=== PATIENT | female | born 1955 | race Caucasian/White ===

== ENCOUNTER → 2016-07-25 | Outpatient (CLI) | payer MEDICARE | END | disposition home or self-care (01) | LOC: LABWHC1 10:40 | PROVIDERS: ATTEND Internal Medicine Endocrinology, Diabetes & Metabolism | DX: E10.65 Type 1 diabetes mellitus with hyperglycemia (principal) | CPT/HCPCS: 36415; 82947; 84681 ==

== ENCOUNTER → 2016-10-04 | Outpatient (CLI) | payer MEDICARE ==
[2016-10-04 10:25] LABS: ALT 34 U/L (9-52); AST 33 U/L (14-36); Alkaline Phosphatase 88 U/L (38-126); Anion Gap 7 mmol/L; Blood Urea Nitrogen 6 mg/dL (7-17); Calcium 8.9 mg/dL (8.4-10.2); Carbon Dioxide 29 mmol/L (22-30); Chloride 99 mmol/L (98-107); Cholesterol 111 mg/dL (<200); Glucose 236 mg/dL (74-99); HDL Cholesterol 41 mg/dL (40-60); Non-African American GFR(MDRD) >60 (>60 ml/min/1.73 sqM); Sodium 135 mmol/L (137-145); Total Protein 6.9 g/dL (6.3-8.2); Triglycerides 71 mg/dL (<150)
== END | disposition home or self-care (01) ==
LOC: LABWHC1 09:44
PROVIDERS: ATTEND Internal Medicine Endocrinology, Diabetes & Metabolism
DX: E10.65 Type 1 diabetes mellitus with hyperglycemia (principal)
CPT/HCPCS: 36415; 80053; 80061; 82043

== ENCOUNTER → 2016-11-01 | Outpatient (CLI) | payer MEDICARE ==
[2016-11-01 10:05] LABS: Basophils % (A) 0 %; CH 32.9; Eosinophils % (A) 1 %; HCT 37.4 % (34.0-46.0); HDW 2.51; HGB 12.3 gm/dL (11.4-16.0); Luc # (Auto) 0.17; Luc % (Auto) 4; Lymphocytes # (A) 0.6 k/uL (1.0-4.8); Lymphocytes % (A) 13 %; MCH 32.9 pg (25.0-35.0); MCHC 32.8 g/dL (31.0-37.0); MCV 100.3 fL (80.0-100.0); Mean Platelet Volume 7.1; Monocytes # (A) 0.4 k/uL (0-1.0); Monocytes % (A) 10 %; Neutrophils # (A) 3.2 k/uL (1.3-7.7); Neutrophils % (A) 73 %; RBC 3.73 m/uL (3.80-5.40); RDW 12.9 % (11.5-15.5); WBC 4.4 k/uL (3.8-10.6); WBC (Perox) 4.94
[2016-11-01 10:21] LABS: ALT 32 U/L (9-52); AST 31 U/L (14-36); Alkaline Phosphatase 80 U/L (38-126); Anion Gap 9 mmol/L; Bilirubin, Delta 0.2 mg/dL (0.0-0.2); Blood Urea Nitrogen 9 mg/dL (7-17); Carbon Dioxide 26 mmol/L (22-30); Chloride 101 mmol/L (98-107); Cholesterol 114 mg/dL (<200); Glucose 125 mg/dL (74-99); HDL Cholesterol 44 mg/dL (40-60); Non-African American GFR(MDRD) >60 (>60 ml/min/1.73 sqM); Potassium 4.1 mmol/L (3.5-5.1); Sodium 136 mmol/L (137-145); Total Bilirubin 0.9 mg/dL (0.2-1.3); Total Protein 7.3 g/dL (6.3-8.2); Triglycerides 50 mg/dL (<150)
== END | disposition home or self-care (01) ==
LOC: LABWHC1 09:31
PROVIDERS: ATTEND Internal Medicine Cardiovascular Disease
DX: Z00.00 Encounter for general adult medical examination without abnormal findings (principal); I25.10 Atherosclerotic heart disease of native coronary artery without angina pectoris; I50.9 Heart failure, unspecified
CPT/HCPCS: 36415; 80053; 80061; 82248; 84439; 84443; 85025

== ENCOUNTER → 2017-01-15 | Outpatient (CLI) | payer MEDICARE ==
[2017-01-15 10:49] LABS: ALT 38 U/L (9-52); AST 36 U/L (14-36); Alkaline Phosphatase 92 U/L (38-126); Anion Gap 9 mmol/L; Blood Urea Nitrogen 9 mg/dL (7-17); Calcium 9.1 mg/dL (8.4-10.2); Carbon Dioxide 25 mmol/L (22-30); Chloride 99 mmol/L (98-107); Cholesterol 124 mg/dL (<200); Glucose 172 mg/dL (74-99); HDL Cholesterol 53 mg/dL (40-60); Non-African American GFR(MDRD) >60 (>60 ml/min/1.73 sqM); Potassium 4.6 mmol/L (3.5-5.1); Sodium 133 mmol/L (137-145); Total Bilirubin 0.9 mg/dL (0.2-1.3); Total Protein 7.2 g/dL (6.3-8.2); Triglycerides 76 mg/dL (<150)
[2017-01-15 16:13] LABS: Urine Creatinine 80.7 mg/dL
== END | disposition home or self-care (01) ==
LOC: LABWHC1 09:55
PROVIDERS: ATTEND Internal Medicine Endocrinology, Diabetes & Metabolism
DX: E03.8 Other specified hypothyroidism (principal); E10.65 Type 1 diabetes mellitus with hyperglycemia
CPT/HCPCS: 36415; 80053; 80061; 82043; 82570; 84443

== ENCOUNTER → 2017-09-24 | Outpatient (CLI) | payer MEDICARE ==
[2017-09-24 11:10] LABS: ALT 28 U/L (9-52); AST 30 U/L (14-36); Albumin 3.7 g/dL (3.5-5.0); Alkaline Phosphatase 73 U/L (38-126); Anion Gap 10 mmol/L; Blood Urea Nitrogen 11 mg/dL (7-17); Carbon Dioxide 28 mmol/L (22-30); Chloride 98 mmol/L (98-107); Cholesterol 138 mg/dL (<200); Glucose 94 mg/dL (74-99); HDL Cholesterol 50 mg/dL (40-60); LDL Cholesterol,Calculated 78 mg/dL (0-99); Potassium 4.1 mmol/L (3.5-5.1); Sodium 136 mmol/L (137-145); Total Bilirubin 0.6 mg/dL (0.2-1.3); Total Protein 6.5 g/dL (6.3-8.2); Triglycerides 51 mg/dL (<150)
[2017-09-24 16:45] LABS: Hemoglobin A1C 7.9 % (4.0-6.0)
== END | disposition home or self-care (01) ==
LOC: LABWHC1 09:58
PROVIDERS: ATTEND Internal Medicine Endocrinology, Diabetes & Metabolism
DX: E03.8 Other specified hypothyroidism (principal); E10.65 Type 1 diabetes mellitus with hyperglycemia
CPT/HCPCS: 36415; 80053; 80061; 82043; 82570; 83036; 84443

== ENCOUNTER → 2017-10-13 | Outpatient (CLI) | payer MEDICARE ==
--- NOTE | 2017-10-14 00:04 | CT ---
EXAMINATION TYPE: CT chest wo con DATE OF EXAM: 10/13/2017 COMPARISON: NONE HISTORY: Interstitial lung disease per order. Difficulty breathing per patient. CT DLP: 675 mGycm. Automated Exposure Control for Dose Reduction was Utilized. TECHNIQUE: CT scan of the thorax is performed without IV contrast. High resolution protocol with 1 m m sequences obtained at 10 mm intervals undergoing prone and supine technique FINDINGS: LUNGS: There is mild to moderate underlying emphysematous change. There is more prominent subpleural fibrosis and reticulation with distortion noted most prominent in bilateral lung bases, IPF should be considered. Some areas of faint groundglass opacity are present bilaterally. Some honeycombing in th e bases is noted. No pleural effusion or pneumothorax is seen bilaterally. Tracheobronchial tree is p atent. No significant bronchiectasis is present. MEDIASTINUM: Lack of IV contrast is noted to limit evaluation for mediastinal and especially hilar ad enopathy. There are no definitive greater than 1 cm hilar or mediastinal lymph nodes. Post-CABG logan es with mediastinal clips and sternal wires is seen. There is cardiomegaly with dual lead pacemaker/A ICD. OTHER: Small hiatal hernia is noted. There is slight scoliotic curvature with mild multilevel spurrin g in the spine. IMPRESSION: Mild to moderate underlying emphysematous change with bilateral peripheral interstitial f ibrosis noted most prominent in the lower lobes, consider IPF. Areas of acute infiltrate or infection cannot be excluded in the upper lungs.
== END | disposition home or self-care (01) ==
LOC: RADCTMAIN 09:40
PROVIDERS: ATTEND Internal Medicine
DX: J43.9 Emphysema, unspecified (principal); J84.10 Pulmonary fibrosis, unspecified
CPT/HCPCS: 71250

== ENCOUNTER → 2017-12-28 | Outpatient (CLI) | payer MEDICARE ==
[2017-12-28 09:59] LABS: ALT 32 U/L (9-52); AST 29 U/L (14-36); Albumin 3.9 g/dL (3.5-5.0); Alkaline Phosphatase 67 U/L (38-126); Anion Gap 10 mmol/L; Blood Urea Nitrogen 12 mg/dL (7-17); Calcium 9.2 mg/dL (8.4-10.2); Carbon Dioxide 28 mmol/L (22-30); Chloride 95 mmol/L (98-107); Cholesterol 176 mg/dL (<200); Glucose 148 mg/dL (74-99); Potassium 4.6 mmol/L (3.5-5.1); Sodium 133 mmol/L (137-145); Total Bilirubin 0.6 mg/dL (0.2-1.3); Total Protein 6.9 g/dL (6.3-8.2); Triglycerides 74 mg/dL (<150)
[2017-12-28 10:00] LABS: HDL Cholesterol 51 mg/dL (40-60); LDL Cholesterol,Calculated 110 mg/dL (0-99)
== END | disposition home or self-care (01) ==
LOC: LABWHC1 08:56
PROVIDERS: ATTEND Internal Medicine Endocrinology, Diabetes & Metabolism
DX: E10.65 Type 1 diabetes mellitus with hyperglycemia (principal)
CPT/HCPCS: 36415; 80053; 80061; 82043; 82570; 83036; 84443

== ENCOUNTER → 2018-02-19 | Outpatient (CLI) | payer MEDICARE | END | disposition home or self-care (01) | LOC: LABWHC1 11:35 | PROVIDERS: ATTEND Internal Medicine Cardiovascular Disease | DX: I50.42 Chronic combined systolic (congestive) and diastolic (congestive) heart failure (principal) | CPT/HCPCS: 36415; 84132 ==

== ENCOUNTER → 2018-05-14 | Outpatient (CLI) | payer MEDICARE ==
[2018-05-14 19:17] LABS: ALT 21 U/L (8-44); AST 32 U/L (13-35); Albumin/Globulin Ratio 1.64 (1.20-2.10); Alkaline Phosphatase 78 U/L (41-126); Calcium 8.9 mg/dL (8.7-10.3); Carbon Dioxide 24.3 mmol/L (21.6-31.8); Chloride 99 mmol/L (96-109); Cholesterol 121 mg/dL (0-200); Globulin 2.5 g/dL (2.1-3.7); Glucose 107 mg/dL (70-110); Potassium 4.4 mmol/L (3.5-5.5); Sodium 132 mmol/L (135-145); Total Bilirubin 0.7 mg/dL (0.2-1.2); Total Protein 6.6 g/dL (6.2-8.2); Triglycerides <50.0 mg/dL (0.0-149.0); VLDL Calculation 9.98 mg/dL (5.00-40.00)
[2018-05-14 21:43] LABS: Hemoglobin A1C 8.4 % (4.0-6.0)
== END | disposition home or self-care (01) ==
LOC: LABWHC1 10:39
PROVIDERS: ATTEND Internal Medicine Endocrinology, Diabetes & Metabolism
DX: E10.65 Type 1 diabetes mellitus with hyperglycemia (principal)
CPT/HCPCS: 36415; 80053; 80061; 83036

== ENCOUNTER → 2018-09-10 | Outpatient (CLI) | payer MEDICARE ==
[2018-09-10 17:14] LABS: Albumin 3.9 g/dL (3.80-4.90); Albumin/Globulin Ratio 1.63 (1.60-3.17); Calcium 8.7 mg/dL (8.7-10.3); Globulin 2.4 g/dL (1.6-3.3); Potassium 4.2 mmol/L (3.5-5.5); Total Bilirubin 0.7 mg/dL (0.2-1.2); Total Protein 6.3 g/dL (6.2-8.2)
[2018-09-10 17:15] LABS: LDL Cholesterol,Calculated 62.6 mg/dL (0.0-131.0); VLDL Calculation 10.4 mg/dL (5.00-40.00)
[2018-09-10 19:54] LABS: Hemoglobin A1C 7.7 % (4.0-6.0)
== END | disposition home or self-care (01) ==
LOC: LABWHC1 09:15
PROVIDERS: ATTEND Internal Medicine Endocrinology, Diabetes & Metabolism
DX: E10.65 Type 1 diabetes mellitus with hyperglycemia (principal)
CPT/HCPCS: 36415; 80053; 80061; 82043; 82570; 83036; 84443

== ENCOUNTER → 2019-01-17 | Outpatient (CLI) | payer MEDICARE ==
--- NOTE | 2019-01-17 14:56 | XR ---
EXAMINATION TYPE: XR KUB DATE OF EXAM: 01/17/2019 2:49 PM CLINICAL HISTORY: Right flank pain for one month TECHNIQUE: Single supine KUB image of the abdomen is obtained. COMPARISON: None. FINDINGS: Scattered gas is seen in nondilated small bowel loops. Gas and fecal material is seen in no ndilated colon. There is no gross evidence of pneumoperitoneum although this finding is limited on [place] imaging only. The lung bases are clear and the osseous structures are intact. There is partial v isualization of an enlarged cardiac silhouette with multilead cardiac defibrillator. Degenerative ladarius nges are seen at the lumbosacral junction. Surgical clips are present within the left superficial ing uinal region. IMPRESSION: Moderate degree right hemicolonic fecal stasis in an overall nonobstructive bowel gas pattern.
== END | disposition home or self-care (01) ==
LOC: RADXRMAIN 14:33
PROVIDERS: ATTEND Internal Medicine
DX: K56.41 Fecal impaction (principal)
CPT/HCPCS: 74018

== ENCOUNTER → 2019-02-20 | Outpatient (CLI) | payer MEDICARE ==
[2019-02-20 16:54] LABS: African American GFR (CKD) 91.6 (60.0-200.0); Anion Gap 9.2 mmol/L (4.00-12.00); Carbon Dioxide 24.8 mmol/L (21.6-31.8); Potassium 4.6 mmol/L (3.5-5.5)
== END | disposition home or self-care (01) ==
LOC: LABWHC1 10:22
PROVIDERS: ATTEND Internal Medicine Interventional Cardiology
DX: I42.9 Cardiomyopathy, unspecified (principal); I11.0 Hypertensive heart disease with heart failure; I50.42 Chronic combined systolic (congestive) and diastolic (congestive) heart failure
CPT/HCPCS: 36415; 80051; 82565; 84520

== ENCOUNTER → 2019-05-09 | Outpatient (CLI) | payer MEDICARE ==
--- NOTE | 2019-05-13 10:18 | MM ---
Reason for exam: screening (asymptomatic). Last mammogram was performed 5 years and 1 month ago. History: Patient is postmenopausal. Benign core biopsy of the left breast, 2000. Physical Findings: A clinical breast exam by your physician is recommended on an annual basis and results should be correlated with mammographic findings. MG 3D Screening Mammo W/Cad Bilateral CC and MLO view(s) were taken. Prior study comparison: April 20, 2014, bilateral MG screening mammo w CAD. The breast tissue is heterogeneously dense. This may lower the sensitivity of mammography. Benign secretory calcifications on the right. Generalized asymmetrically increased density on the right. This may be secondary to apparent weight loss as compared to 2013. Given asymmetry, ultrasound recommended. ASSESSMENT: Incomplete: need additional imaging evaluation, BI-RAD 0 RECOMMENDATION: Ultrasound of the left breast. [facility] will attempt to contact patient to return for ultrasound.
== END | disposition home or self-care (01) ==
LOC: RADMAMWWP 15:23
PROVIDERS: ATTEND Internal Medicine
DX: Z12.31 Encounter for screening mammogram for malignant neoplasm of breast (principal)
CPT/HCPCS: 77063; 77067

== ENCOUNTER → 2019-05-19 | Outpatient (CLI) | payer MEDICARE ==
--- NOTE | 2019-05-19 11:24 | USB ---
Reason for exam: additional evaluation requested from abnormal screening. History: Patient is postmenopausal. Benign core biopsy of the left breast, 2000. Physical Findings: Nurse Summary: 1cm lump left breast 1 o'clock with arm raised (nurse TM). US Breast Workup RT Left complete breast ultrasound includes all four quadrants, the retroareolar region and axilla. Finding demonstrates a 0.2 x 0.3 x 0.2cm hypoechoic lesion at 1 o'clock in dermis. These results were verbally communicated with the patient and result sheet given to the patient on 05/19/19. ASSESSMENT: Benign, BI-RAD 2 RECOMMENDATION: Return to routine screening mammogram schedule for both breasts. Manage patient on a clinical basis.
== END | disposition home or self-care (01) ==
LOC: RADUSWWP 09:36
PROVIDERS: ATTEND Internal Medicine
DX: R92.8 Other abnormal and inconclusive findings on diagnostic imaging of breast (principal)

== ENCOUNTER → 2019-07-23 | Outpatient (CLI) | payer MEDICARE ==
[2019-07-23 18:35] LABS: African American GFR (CKD) 91.6 (60.0-200.0); Albumin/Globulin Ratio 1.6 (1.60-3.17); Anion Gap 7.4 mmol/L (4.00-12.00); BUN/Creat Ratio 16.25 Ratio (12.00-20.00); Carbon Dioxide 26.6 mmol/L (21.6-31.8); Chol/HDL Ratio 2.68; Globulin 2.5 g/dL (1.6-3.3); LDL Cholesterol,Calculated 62.6 mg/dL (0.0-131.0); Potassium 4.5 mmol/L (3.5-5.5); Total Bilirubin 0.7 mg/dL (0.2-1.2); Total Protein 6.5 g/dL (6.2-8.2); VLDL Calculation 11.4 mg/dL (5.00-40.00)
[2019-07-23 21:31] LABS: Urine Creatinine 41.3 mg/dL
[2019-07-23 21:38] LABS: Hemoglobin A1C 7.9 % (4.0-6.0)
== END | disposition home or self-care (01) ==
LOC: LABWHC1 09:10
PROVIDERS: ATTEND Internal Medicine Endocrinology, Diabetes & Metabolism
DX: E10.65 Type 1 diabetes mellitus with hyperglycemia (principal)
CPT/HCPCS: 36415; 80053; 80061; 82043; 82570; 83036; 84443

== ENCOUNTER → 2019-12-17 | Outpatient (CLI) | payer MEDICARE ==
[2019-12-17 16:31] LABS: African American GFR (CKD) 90.9 (60.0-200.0); Anion Gap 5.4 mmol/L (4.00-12.00); Carbon Dioxide 28.6 mmol/L (21.6-31.8); Non-African American GFR(CKD) 78.5 (60.0-200.0); Potassium 4.3 mmol/L (3.5-5.5)
== END | disposition home or self-care (01) ==
LOC: LABWHC1 09:17
PROVIDERS: ATTEND Internal Medicine Interventional Cardiology
DX: I42.9 Cardiomyopathy, unspecified (principal); I50.42 Chronic combined systolic (congestive) and diastolic (congestive) heart failure
CPT/HCPCS: 36415; 80051; 82565; 84520

== ENCOUNTER → 2020-03-22 | Outpatient (CLI) | payer MEDICARE ==
[2020-03-22 16:52] LABS: African American GFR (CKD) 90.9 (60.0-200.0); Albumin 3.9 g/dL (3.80-4.90); Albumin/Globulin Ratio 1.44 (1.60-3.17); Anion Gap 6.3 mmol/L (4.00-12.00); BUN/Creat Ratio 11.25 Ratio (12.00-20.00); Carbon Dioxide 27.7 mmol/L (21.6-31.8); Chol/HDL Ratio 2.89; Globulin 2.7 g/dL (1.6-3.3); Non-African American GFR(CKD) 78.5 (60.0-200.0); Potassium 4.5 mmol/L (3.5-5.5); Total Bilirubin 0.9 mg/dL (0.3-1.2); Total Protein 6.6 g/dL (6.2-8.2)
[2020-03-22 17:16] LABS: Urine Creatinine 14.7 mg/dL
[2020-03-22 17:18] LABS: Hemoglobin A1C 8.6 % (4.0-6.0)
== END | disposition home or self-care (01) ==
LOC: LABWHC1 10:35
PROVIDERS: ATTEND Internal Medicine Endocrinology, Diabetes & Metabolism
DX: E10.65 Type 1 diabetes mellitus with hyperglycemia (principal)
CPT/HCPCS: 36415; 80053; 80061; 82043; 82570; 83036; 84443

== ENCOUNTER → 2020-10-20 | Outpatient (CLI) | payer MEDICARE ==
[2020-10-20 18:31] LABS: Hemoglobin A1C 8.1 % (4.0-6.0)
[2020-10-20 21:48] LABS: African American GFR (CKD) 78.3 (60.0-200.0); Albumin/Globulin Ratio 1.6 (1.60-3.17); Anion Gap 8.4 mmol/L (4.00-12.00); BUN/Creat Ratio 15.56 Ratio (12.00-20.00); Calcium 8.9 mg/dL (8.7-10.3); Carbon Dioxide 25.6 mmol/L (21.6-31.8); Chol/HDL Ratio 2.61; Globulin 2.5 g/dL (1.6-3.3); LDL Cholesterol,Calculated 60.4 mg/dL (0.0-131.0); Non-African American GFR(CKD) 67.6 (60.0-200.0); Potassium 4.4 mmol/L (3.5-5.5); Total Bilirubin 0.7 mg/dL (0.3-1.2); Total Protein 6.5 g/dL (6.2-8.2); VLDL Calculation 13.6 mg/dL (5.00-40.00)
[2020-10-21 03:34] LABS: Urine Creatinine 19.6 mg/dL
== END | disposition home or self-care (01) ==
LOC: LABWHC1 09:15
PROVIDERS: ATTEND Internal Medicine Endocrinology, Diabetes & Metabolism
DX: E10.65 Type 1 diabetes mellitus with hyperglycemia (principal)
CPT/HCPCS: 36415; 80053; 80061; 82043; 82570; 83036; 84443

== ENCOUNTER 2020-11-12 13:07 | Inpatient (IN) | payer MEDICARE ==
--- NOTE | 2020-11-12 14:11 | ED ---
General Adult HPI - General Chief complaint: Back Pain/Injury Stated complaint: L shoulder & upper back pain Time Seen by Provider: 11/12/20 13:55 Source: patient, RN notes reviewed, old records reviewed Mode of arrival: ambulatory Limitations: no limitations - History of Present Illness Initial comments: 65-year-old female history of CAD status post CABG presenting for evaluation of left shoulder pain and left arm pain. Symptoms have been present for the past 4 days. She has no central chest pain. No dyspnea. She does have a mild cough which is baseline, no worsening. No fever. She's been vaccinated against coronavirus. She states she has just felt unwell for the past several days. Denies lower extremity pain or swelling. She is on 81 mg aspirin, no other anticoagulation. - Related Data Home Medications Medication Instructions Recorded Confirmed Aspirin 325 mg PO DAILY 02/02/14 02/02/14 INSULIN ASPART (NovoLOG) [NovoLOG] 0 unit SQ DAILY PRN 02/02/14 02/02/14 LORazepam [Ativan] 1 mg PO HS 02/02/14 02/02/14 Levothyroxine Sodium [Synthroid] 88 mcg PO DAILY 02/02/14 02/02/14 Olmesartan/Hydrochlorothiazide 1 each PO DAILY 02/02/14 02/02/14 [Benicar Hct 20-12.5 mg Tablet] Omeprazole [PriLOSEC] 20 mg PO HS 02/02/14 02/02/14 Rosuvastatin Calcium [Crestor] 5 mg PO MOWEFR 02/02/14 02/02/14 carvediloL [Coreg] 6.25 mg PO BID 02/02/14 02/02/14 Allergies Allergy/AdvReac Type Severity Reaction Status Date / Time clarithromycin [From Biaxin] AdvReac Nausea & Verified 11/12/20 13:25 Vomiting codeine AdvReac Vomiting Verified 11/12/20 13:25 Review of Systems ROS Statement: Those systems with pertinent positive or pertinent negative responses have been documented in the HPI. ROS Other: All systems not noted in ROS Statement are negative. Past Medical History Past Medical History: Diabetes Mellitus, GERD/Reflux, Hyperlipidemia, Hypertension, Myocardial Infarction ([place]), Thyroid Disorder Last Myocardial Infarction Date:: 2001 History of Any Multi-Drug Resistant Organisms: None Reported Past Surgical History: Section, Coronary Bypass/CABG, Hysterectomy, Tubal Ligation Past Anesthesia/Blood Transfusion Reactions: Postoperative Nausea & Vomiting (PONV) Past Psychological History: Anxiety Smoking Status: Never smoker Past Alcohol Use History: Rare Past Drug Use History: None Reported General Exam Limitations: no limitations General appearance: alert, in no apparent distress Head exam: Present: atraumatic Eye exam: Present: normal appearance, PERRL ENT exam: Present: normal exam Neck exam: Present: normal inspection. Absent: tenderness, meningismus Respiratory exam: Present: normal lung sounds bilaterally. Absent: respiratory distress, wheezes Cardiovascular Exam: Present: regular rate, normal rhythm GI/Abdominal exam: Present: soft. Absent: distended, tenderness, guarding Extremities exam: Present: normal inspection, normal capillary refill. Absent: pedal edema, calf tenderness Neurological exam: Present: alert, oriented X3, CN II-XII intact. Absent: motor sensory deficit Psychiatric exam: Present: normal affect, normal mood Skin exam: Present: warm, dry, intact. Absent: cyanosis, diaphoretic Course Vital Signs 11/12/20 13:22 Temperature 97.6 F Pulse Rate 71 Respiratory 18 Rate Blood Pressure 154/73 O2 Sat by Pulse 99 Oximetry EKG Findings - EKG Comments: EKG Findings:: Normal sinus rhythm, left atrial enlargement, right bundle branch block, left anterior fascicular block, rate 73, WA interval 140, QRS duration 1 18, QTC 449. This is significantly different from prior which was obtained in September 2009 no more recent for comparison. No ST segment elevation. Medical Decision Making - Medical Decision Making 68-year-old female with history of CAD presenting with nontraumatic left shoulder pain. There is concern for anginal equivalent. EKG showing a bifa scicular block which is new compared to previous however previous was in 2009. She has no central chest pain. Chest x-ray showing CHF. She has mild anemia but overall stable CBC. A hyponatremia sodium 129, magnesium is 1.5. Troponin 0.0-1. She has an elevated BNP at 2700. She's given Lasix, aspirin and magnesium infusion in the emergency department. She will be admitted for echo, cardiology consultation, telemetry, serial cardiac enzymes. Case discussed with Dr. Renee who will admit. - Lab Data Result diagrams: 11/12/20 14:24 11/12/20 14:24 Lab Results 11/12/20 11/12/20 11/12/20 Range/Units 14:24 14:24 14:24 WBC 5.9 (3.8-10.6) k/uL RBC 3.71 L (3.80-5.40) m/uL Hgb 12.4 (11.4-16.0) gm/dL Hct 38.2 (34.0-46.0) % MCV 103.1 H (80.0-100.0) fL MCH 33.5 (25.0-35.0) pg MCHC 32.5 (31.0-37.0) g/dL RDW 13.2 (11.5-15.5) % Plt Count 169 (150-450) k/uL MPV 7.7 Neutrophils % 81 % Lymphocytes % 10 % Monocytes % 7 % Eosinophils % 1 % Basophils % 0 % Neutrophils # 4.7 (1.3-7.7) k/uL Lymphocytes # 0.6 L (1.0-4.8) k/uL Monocytes # 0.4 (0-1.0) k/uL Eosinophils # 0.0 (0-0.7) k/uL Basophils # 0.0 (0-0.2) k/uL Macrocytosis Slight PT 10.9 (9.0-12.0) sec INR 1.0 (<1.2) APTT 26.4 (22.0-30.0) sec Sodium 129 L (137-145) mmol/L Potassium 4.3 (3.5-5.1) mmol/L Chloride 96 L (98-107) mmol/L Carbon Dioxide 24 (22-30) mmol/L Anion Gap 9 mmol/L BUN 15 (7-17) mg/dL Creatinine 0.73 (0.52-1.04) mg/dL Est GFR (CKD-EPI)AfAm >90 (>60 ml/min/1.73 sqM) Est GFR (CKD-EPI)NonAf 88 (>60 ml/min/1.73 sqM) Glucose 228 H (74-99) mg/dL Calcium 9.0 (8.4-10.2) mg/dL Magnesium 1.5 L (1.6-2.3) mg/dL Total Bilirubin 0.6 (0.2-1.3) mg/dL AST 36 (14-36) U/L ALT 24 (4-34) U/L Alkaline Phosphatase 62 (38-126) U/L Troponin I (0.000-0.034) ng/mL NT-Pro-B Natriuret Pep pg/mL Total Protein 7.2 (6.3-8.2) g/dL Albumin 3.9 (3.5-5.0) g/dL Urine Color Urine Appearance (Clear) Urine pH (5.0-8.0) Ur Specific [place] (1.001-1.035) Urine Protein (Negative) Urine Glucose (UA) (Negative) Urine Ketones (Negative) Urine Blood (Negative) Urine Nitrite (Negative) Urine Bilirubin (Negative) Urine Urobilinogen (<2.0) mg/dL Ur Leukocyte Esterase (Negative) Urine RBC (0-5) /hpf Urine WBC (0-5) /hpf Ur Squamous Epith Cells (0-4) /hpf Urine Bacteria (None) /hpf Cellular Casts (0) /lpf Hyaline Casts (0-2) /lpf Granular Casts (0) /lpf Urine Mucus (None) /hpf Coronavirus (PCR) (Not Detectd) 11/12/20 11/12/20 11/12/20 Range/Units 14:24 14:24 15:41 WBC (3.8-10.6) k/uL RBC (3.80-5.40) m/uL Hgb (11.4-16.0) gm/dL Hct (34.0-46.0) % MCV (80.0-100.0) fL MCH (25.0-35.0) pg MCHC (31.0-37.0) g/dL RDW (11.5-15.5) % Plt Count (150-450) k/uL MPV Neutrophils % % Lymphocytes % % Monocytes % % Eosinophils % % Basophils % % Neutrophils # (1.3-7.7) k/uL Lymphocytes # (1.0-4.8) k/uL Monocytes # (0-1.0) k/uL Eosinophils # (0-0.7) k/uL Basophils # (0-0.2) k/uL Macrocytosis PT (9.0-12.0) sec INR (<1.2) APTT (22.0-30.0) sec Sodium (137-145) mmol/L Potassium (3.5-5.1) mmol/L Chloride (98-107) mmol/L Carbon Dioxide (22-30) mmol/L Anion Gap mmol/L BUN (7-17) mg/dL Creatinine (0.52-1.04) mg/dL Est GFR (CKD-EPI)AfAm (>60 ml/min/1.73 sqM) Est GFR (CKD-EPI)NonAf (>60 ml/min/1.73 sqM) Glucose (74-99) mg/dL Calcium (8.4-10.2) mg/dL Magnesium (1.6-2.3) mg/dL Total Bilirubin (0.2-1.3) mg/dL AST (14-36) U/L ALT (4-34) U/L Alkaline Phosphatase (38-126) U/L Troponin I 0.021 (0.000-0.034) ng/mL NT-Pro-B Natriuret Pep 2790 pg/mL Total Protein (6.3-8.2) g/dL Albumin (3.5-5.0) g/dL Urine Color Yellow Urine Appearance Clear (Clear) Urine pH 5.5 (5.0-8.0) Ur Specific [place] 1.011 (1.001-1.035) Urine Protein Negative (Negative) Urine Glucose (UA) 3+ H (Negative) Urine Ketones Trace H (Negative) Urine Blood Negative (Negative) Urine Nitrite Negative (Negative) Urine Bilirubin Negative (Negative) Urine Urobilinogen <2.0 (<2.0) mg/dL Ur Leukocyte Esterase Small H (Negative) Urine RBC 1 (0-5) /hpf Urine WBC 2 (0-5) /hpf Ur Squamous Epith Cells 1 (0-4) /hpf Urine Bacteria Rare H (None) /hpf Cellular Casts 3 (0) /lpf Hyaline Casts 16 H (0-2) /lpf Granular Casts 1 (0) /lpf Urine Mucus Rare H (None) /hpf Coronavirus (PCR) (Not Detectd) 11/12/20 Range/Units 15:41 WBC (3.8-10.6) k/uL RBC (3.80-5.40) m/uL Hgb (11.4-16.0) gm/dL Hct (34.0-46.0) % MCV (80.0-100.0) fL MCH (25.0-35.0) pg MCHC (31.0-37.0) g/dL RDW (11.5-15.5) % Plt Count (150-450) k/uL MPV Neutrophils % % Lymphocytes % % Monocytes % % Eosinophils % % Basophils % % Neutrophils # (1.3-7.7) k/uL Lymphocytes # (1.0-4.8) k/uL Monocytes # (0-1.0) k/uL Eosinophils # (0-0.7) k/uL Basophils # (0-0.2) k/uL Macrocytosis PT (9.0-12.0) sec INR (<1.2) APTT (22.0-30.0) sec Sodium (137-145) mmol/L Potassium (3.5-5.1) mmol/L Chloride (98-107) mmol/L Carbon Dioxide (22-30) mmol/L Anion Gap mmol/L BUN (7-17) mg/dL Creatinine (0.52-1.04) mg/dL Est GFR (CKD-EPI)AfAm (>60 ml/min/1.73 sqM) Est GFR (CKD-EPI)NonAf (>60 ml/min/1.73 sqM) Glucose (74-99) mg/dL Calcium (8.4-10.2) mg/dL Magnesium (1.6-2.3) mg/dL Total Bilirubin (0.2-1.3) mg/dL AST (14-36) U/L ALT (4-34) U/L Alkaline Phosphatase (38-126) U/L Troponin I (0.000-0.034) ng/mL NT-Pro-B Natriuret Pep pg/mL Total Protein (6.3-8.2) g/dL Albumin (3.5-5.0) g/dL Urine Color Urine Appearance (Clear) Urine pH (5.0-8.0) Ur Specific [place] (1.001-1.035) Urine Protein (Negative) Urine Glucose (UA) (Negative) Urine Ketones (Negative) Urine Blood (Negative) Urine Nitrite (Negative) Urine Bilirubin (Negative) Urine Urobilinogen (<2.0) mg/dL Ur Leukocyte Esterase (Negative) Urine RBC (0-5) /hpf Urine WBC (0-5) /hpf Ur Squamous Epith Cells (0-4) /hpf Urine Bacteria (None) /hpf Cellular Casts (0) /lpf Hyaline Casts (0-2) /lpf Granular Casts (0) /lpf Urine Mucus (None) /hpf Coronavirus (PCR) Not Detected (Not Detectd) Disposition Clinical Impression: CHF (congestive heart failure) Disposition: ADMITTED IP TO THIS [facility] Condition: Stable Is patient prescribed a controlled substance at d/c from ED?: No Referrals: Alexandra Brown MD [Primary Care Provider] - 1-2 days Decision to Admit Reason: Admit from EC Decision Date: 11/12/20 Decision Time: 16:12
--- NOTE | 2020-11-12 14:38 | XR ---
EXAMINATION TYPE: XR chest 2V DATE OF EXAM: 11/12/2020 COMPARISON: Chest x-ray 10/22/2018 HISTORY: Left arm and back pain for 3 days. Cardiac history TECHNIQUE: Frontal and lateral views of the chest are obtained. FINDINGS: Left infraclavicular generator device with stable leads. Heart size is grossly enlarged. P erihilar interstitial and bibasilar airspace opacities suggestive of edema and/or atypical infection. Pneumonia. Small bilateral pleural effusions. Congestive heart failure. No pneumothorax. Degenerativ e changes of thoracic spine and osteopenia. IMPRESSION: 1. Cardiomegaly. There are perihilar interstitial airspace opacities and bibasilar airspace opacities suggestive of edema and/or infection. Small bilateral pleural effusions. Consider congestive heart f ailure.
[2020-11-12 14:48] LABS: ALT 24 U/L (4-34); AST 36 U/L (14-36); African American GFR (CKD) >90 (>60 ml/min/1.73 sqM); Albumin 3.9 g/dL (3.5-5.0); Alkaline Phosphatase 62 U/L (38-126); Anion Gap 9 mmol/L; Blood Urea Nitrogen 15 mg/dL (7-17); Carbon Dioxide 24 mmol/L (22-30); Chloride 96 mmol/L (98-107); Glucose 228 mg/dL (74-99); Magnesium 1.5 mg/dL (1.6-2.3); Non-African American GFR(CKD) 88 (>60 ml/min/1.73 sqM); Sodium 129 mmol/L (137-145); Total Bilirubin 0.6 mg/dL (0.2-1.3); Total Protein 7.2 g/dL (6.3-8.2)
[2020-11-12 14:49] LABS: Partial Thromboplastin Time 26.4 sec (22.0-30.0); Prothrombin Time 10.9 sec (9.0-12.0)
[2020-11-12 14:55] LABS: Basophils % (A) 0 %; Eosinophils % (A) 1 %; HCT 38.2 % (34.0-46.0); HGB 12.4 gm/dL (11.4-16.0); Lymphocytes # (A) 0.6 k/uL (1.0-4.8); Lymphocytes % (A) 10 %; MCH 33.5 pg (25.0-35.0); MCHC 32.5 g/dL (31.0-37.0); MCV 103.1 fL (80.0-100.0); Macrocytosis Slight; Mean Platelet Volume 7.7; Monocytes # (A) 0.4 k/uL (0-1.0); Monocytes % (A) 7 %; Neutrophils # (A) 4.7 k/uL (1.3-7.7); Neutrophils % (A) 81 %; Platelet Count 169 k/uL (150-450); RBC 3.71 m/uL (3.80-5.40); RDW 13.2 % (11.5-15.5); WBC 5.9 k/uL (3.8-10.6)
[2020-11-12 15:06] LABS: Potassium 4.3 mmol/L (3.5-5.1)
[2020-11-12 15:52] LABS: Appearance,Urine Clear (Clear); Bacteria,Urine Rare /hpf; Bilirubin,Urine Negative (Negative); Blood,Urine Negative (Negative); Cellular Casts,Urine 3 /lpf (0); Color,Urine Yellow; Glucose,Urine (UA) 3+ (Negative); Granular Casts,Urine 1 /lpf (0); Hyaline Casts,Urine 16 /lpf (0-2); Ketones,Urine Trace (Negative); Leukocyte Esterase,Urine Small (Negative); Mucus,Urine Rare /hpf; Nitrite,Urine Negative (Negative); PH, Urine 5.5 (5.0-8.0); Protein,Urine Negative (Negative); RBC,Urine 1 /hpf (0-5); Specific Gravity,Urine 1.011 (1.001-1.035); Squamous Epithelial Cell,Urine 1 /hpf (0-4); Urobilinogen,Urine <2.0 mg/dL (<2.0); WBC,Urine 2 /hpf (0-5)
[2020-11-12] MEDS ORDERED: MAGNESIUM SULFATE-D5W PMX 1 GM in DEXTROSE/WATER 1 100ML.BAG IVPB ONE (16:07)
[2020-11-12] MEDS ORDERED: ASPIRIN 325 MG TAB PO STA (16:08)
[2020-11-12] MEDS ORDERED: FUROSEMIDE 10 MG/ML 4 ML VIAL IV STA (16:08)
[2020-11-12] MEDS ORDERED: NALOXONE 0.4 MG/ML 1 ML VIAL IV PRN (16:09)
[2020-11-12] MEDS ORDERED: MORPHINE SULFATE 4 MG/ML SYRINGE IV PRN (16:09)
[2020-11-12] MEDS ORDERED: ACETAMINOPHEN TAB 325 MG TAB PO PRN (16:09)
--- NOTE | 2020-11-12 19:46 | P.HPIM ---
History of Present Illness this is a pleasant 65 years old female with past medical history of diabetes mellitus, hypertension, hyperlipidemia, GERD, hypothyroidism. Also she has history of coronary artery disease status post CABG at age 45. She follows up with blow up operator Dr. Briggs for she is on insulin pump. Her county auditor is Dr. Moreno Presents because of left shoulder blade pain and tenderness are radiating with left arm pain. About 7/10 in severity for the last 4-5 days, pain comes and goes and felt like sharp aggravated by movement. Patient denies trauma. She has chronic,. Also she is complaining of from exertional dyspnea. Her piling setter is Dr. Le and she is on home oxygen of 2 L She denies smoking, alcohol or illicit drugs Patient hemodynamically is a stable and labs reviewed showing unremarkable CBC and INR. Basic metabolic panel showed normal creatinine with low sodium at 129 and height glucose of 228, low magnesium is 1.5 and liver enzymes are unremarkable. Troponin is negative at 0.0-0.03. ProBNP is 2790. Urinalysis showing a glucose urea EKG showing normal sinus rhythm at 73 with right and left fascicular block, bifascicular block, QTC is 449 Chest x-ray showing perihilar interstitial airspace opacity And bibasilar airspace opacity suggestive of edema and/or infection. Small bilateral pleural effusion. Consider congestive heart failure in emergency room patient patient received aspirin, Lasix 1 and placed magnesium as well as morphine. Cartilage team were consulted Review of Systems CONSTITUTIONAL: No fever, no malaise, no fatigue. HEENT: No recent visual problems or hearing problems. Denied any sore throat. CARDIOVASCULAR: No orthopnea, PND, no palpitations, no syncope. PULMONARY: No shortness of breath, no cough, no hemoptysis. GASTROINTESTINAL: No diarrhea, no nausea, no vomiting, no abdominal pain. Normoactive bowel sounds. NEUROLOGICAL: No headaches, no weakness, no numbness. HEMATOLOGICAL: Denies any bleeding or petechiae. GENITOURINARY: Denies any burning micturition, frequency, or urgency. MUSCULOSKELETAL/RHEUMATOLOGICAL: Denies any joint pain, swelling, or any muscle pain. ENDOCRINE: Denies any polyuria or polydipsia. Past Medical History Past Medical History: Diabetes Mellitus, GERD/Reflux, Hyperlipidemia, Hypertension, Myocardial Infarction ([place]), Thyroid Disorder Last Myocardial Infarction Date:: 2001 History of Any Multi-Drug Resistant Organisms: None Reported Past Surgical History: Section, Coronary Bypass/CABG, Hysterectomy, Tubal Ligation Past Anesthesia/Blood Transfusion Reactions: Postoperative Nausea & Vomiting (PONV) Past Psychological History: Anxiety Smoking Status: Never smoker Past Alcohol Use History: Rare Past Drug Use History: None Reported Medications and Allergies Home Medications Medication Instructions Recorded Confirmed Type LORazepam [Ativan] 1 mg PO HS 02/02/14 11/12/20 History Omeprazole [PriLOSEC] 40 mg PO HS 02/02/14 11/12/20 History carvediloL [Coreg] 6.25 mg PO HS 02/02/14 11/12/20 History Aspirin EC [Ecotrin Low Dose] 81 mg PO DAILY 11/12/20 11/12/20 History Atorvastatin [Lipitor] 20 mg PO HS 11/12/20 11/12/20 History Cholecalciferol [Vitamin D3 (25 50 mcg PO HS 11/12/20 11/12/20 History Mcg = 1000 Iu)] Docusate [Colace] 100 mg PO DAILY PRN 11/12/20 11/12/20 History Furosemide [Lasix] 20 mg PO DAILY 11/12/20 11/12/20 History Insulin Aspart (For Pump) [NovoLOG 0.01 unit SQ-PUMP CONTINUOUS 11/12/20 11/12/20 History (For Pump)] Levothyroxine Sodium [Synthroid] 100 mcg PO MOTUWETHFRSA 11/12/20 11/12/20 History Montelukast [Singulair] 10 mg PO DAILY 11/12/20 11/12/20 History Multivit with Calcium,Iron,Min 1 tab PO HS 11/12/20 11/12/20 History [Women's Multivitamin] Sacubitril/Valsartan [Entresto 49 1 tab PO BID 11/12/20 11/12/20 History mg-51 mg Tablet] buPROPion XL [Wellbutrin Xl] 150 mg PO HS 11/12/20 11/12/20 History diphenhydrAMINE HCL [Benadryl] 50 mg PO HS 11/12/20 11/12/20 History Allergies Allergy/AdvReac Type Severity Reaction Status Date / Time amoxicillin [From Augmentin] AdvReac Nausea & Verified 11/12/20 16:45 Vomiting clarithromycin [From Biaxin] AdvReac Nausea & Verified 11/12/20 16:45 Vomiting clavulanic acid AdvReac Nausea & Verified 11/12/20 16:45 [From Augmentin] Vomiting codeine AdvReac Nausea & Verified 11/12/20 16:45 Vomiting nitrofurantoin AdvReac Nausea & Verified 11/12/20 16:45 [From Macrobid] Vomiting Physical Exam Vitals: Vital Signs Temp Pulse Resp BP Pulse Ox 11/12/20 13:22 97.6 F 71 18 154/73 99 Intake and Output 11/12/20 11/12/20 11/12/20 06:59 14:59 22:59 Other: Weight 81.647 kg GENERAL: The patient is alert and oriented x3, not in any acute distress. Well developed, well nourished. HEENT: Pupils are round and equally reacting to light. EOMI. No scleral icterus. No conjunctival pallor. Normocephalic, atraumatic. No pharyngeal erythema. No thyromegaly. CARDIOVASCULAR: S1 and S2 present. No murmurs, rubs, or gallops. PULMONARY: Chest is clear to auscultation, no wheezing or crackles. ABDOMEN: Soft, nontender, nondistended, normoactive bowel sounds. No palpable organomegaly. MUSCULOSKELETAL: No joint swelling or deformity. EXTREMITIES: No cyanosis, clubbing, or pedal edema. NEUROLOGICAL: Gross neurological examination did not reveal any focal deficits. SKIN: No rashes. No petechiae Results CBC & Chem 7: 11/12/20 14:24 11/12/20 14:24 Labs: Abnormal Lab Results - Last 24 Hours (Table) 11/12/20 11/12/20 11/12/20 Range/Units 14:24 14:24 15:41 RBC 3.71 L (3.80-5.40) m/uL MCV 103.1 H (80.0-100.0) fL Lymphocytes # 0.6 L (1.0-4.8) k/uL Sodium 129 L (137-145) mmol/L Chloride 96 L (98-107) mmol/L Glucose 228 H (74-99) mg/dL Magnesium 1.5 L (1.6-2.3) mg/dL Urine Glucose (UA) 3+ H (Negative) Urine Ketones Trace H (Negative) Ur Leukocyte Esterase Small H (Negative) Urine Bacteria Rare H (None) /hpf Hyaline Casts 16 H (0-2) /lpf Urine Mucus Rare H (None) /hpf Assessment and Plan Assessment: Left shoulder pain and tenderness, rule out cardiac causes. Differential diagnosis degenerative cervical spine disease Acute congestive heart failure, unknown ejection fraction Mild hyponatremia at 129 could be related widely 2 hyperglycemia of 228 diabetes mellitus with hyperglycemia Hypertension Hyperlipidemia Hypothyroidism History of GERD Plan: This is a pleasant 65 years old female who presents with shoulder pain and CHF. Order echocardiogram, continue with aspirin. Cardiology consult. We'll do serial troponin. Check hemoglobin A1c, continue with insulin sliding scale We'll order cervical spine x-ray, and shoulder x-ray Labs and medication were reviewed.. Continue same treatment. Continue with symptomatic treatment. Resume home medication. Monitor lytes and vitals. DVT and GI prophylaxis. Further recommendations as per clinical course of the patient DVT prophylaxis: Subcutaneous heparin GI Prophylaxis: Pepcid Prognosis is guarded
[2020-11-12 21:42] LABS: Glucose,Whole Blood 150 mg/dL (75-99)
[2020-11-12] MEDS: HEPARIN SODIUM,PORCINE/PF 5,000 UNIT/0.5 ML SYRINGE SQ SCH (22:30)
[2020-11-12] MEDS: FAMOTIDINE 20 MG/2 ML VIAL IV SCH (22:30)
[2020-11-12] MEDS: LORazepam 1 MG TAB PO PRN (22:31)
--- NOTE | 2020-11-13 03:44 | XR ---
EXAMINATION TYPE: XR shoulder limited LT DATE OF EXAM: 11/12/2020 COMPARISON: NONE HISTORY: Shoulder pain TECHNIQUE: 2 views FINDINGS: I see no fracture nor dislocation. Joint spaces are normal. There are no pathologic calcifi cations. There is left axillary pacemaker. IMPRESSION: Negative left shoulder exam.
--- NOTE | 2020-11-13 03:46 | XR ---
EXAMINATION TYPE: XR cervical spine comp DATE OF EXAM: 11/12/2020 COMPARISON: NONE HISTORY: Neck pain TECHNIQUE: 5 views FINDINGS: Cervical vertebra have normal alignment. There is narrowing of disc spaces at C6-7 and C7-T 1 with spurring of the endplates anteriorly. Posterior elements are intact. There is fusion anomaly of the C2 and C3 vertebral bodies. The neural foramina are fairly well-mainta ined. Atlantoaxial facet joint is normal. There are no cervical ribs. IMPRESSION: Mild degenerative disc changes in the lower cervical spine. No fracture seen.
[2020-11-13] MEDS ORDERED: INSPUCOR MISCELLANE PRN (06:06)
[2020-11-13] MEDS ORDERED: INSULIN ASPART (NovoLOG) 100 UNIT/ML VIAL SQ PRN (06:06)
[2020-11-13] MEDS ORDERED: INSULIN PUMP BASAL RATES 1 EACH MISC MISCELLANE PRN (06:06)
[2020-11-13 06:17] LABS: Glucose,Whole Blood 125 mg/dL (75-99)
[2020-11-13] MEDS ORDERED: LEVOTHYROXINE 100 MCG TAB PO SCH (06:30)
[2020-11-13] MEDS: INSULIN PUMP MEAL BOLUS 1 UNIT MISC MISCELLANE SCH ×4 (06:32→20:33)
[2020-11-13 08:01] LABS: Basophils % (A) 0 %; Eosinophils # (A) 0.1 k/uL (0-0.7); Eosinophils % (A) 1 %; HCT 34.7 % (34.0-46.0); HGB 11.8 gm/dL (11.4-16.0); Lymphocytes # (A) 0.7 k/uL (1.0-4.8); Lymphocytes % (A) 14 %; MCH 34.8 pg (25.0-35.0); MCV 102.3 fL (80.0-100.0); Macrocytosis Slight; Mean Platelet Volume 7.6; Monocytes # (A) 0.5 k/uL (0-1.0); Monocytes % (A) 11 %; Neutrophils # (A) 3.4 k/uL (1.3-7.7); Neutrophils % (A) 71 %; Platelet Count 160 k/uL (150-450); RBC 3.39 m/uL (3.80-5.40); RDW 12.6 % (11.5-15.5); WBC 4.8 k/uL (3.8-10.6)
[2020-11-13 08:17] LABS: ALT 21 U/L (4-34); AST 34 U/L (14-36); African American GFR (CKD) >90 (>60 ml/min/1.73 sqM); Albumin 3.6 g/dL (3.5-5.0); Alkaline Phosphatase 56 U/L (38-126); Anion Gap 5 mmol/L; Blood Urea Nitrogen 14 mg/dL (7-17); Calcium 8.4 mg/dL (8.4-10.2); Carbon Dioxide 28 mmol/L (22-30); Chloride 98 mmol/L (98-107); Glucose 121 mg/dL (74-99); Magnesium 1.6 mg/dL (1.6-2.3); Non-African American GFR(CKD) >90 (>60 ml/min/1.73 sqM); Potassium 4.1 mmol/L (3.5-5.1); Sodium 131 mmol/L (137-145); Total Bilirubin 0.5 mg/dL (0.2-1.3); Total Protein 6.5 g/dL (6.3-8.2)
[2020-11-13] MEDS ORDERED: DOCUSATE 100 MG CAP PO PRN (08:36)
[2020-11-13] MEDS ORDERED: ASPIRIN 325 MG TAB PO SCH (09:00)
[2020-11-13] MEDS ORDERED: FUROSEMIDE 20 MG TAB PO SCH (09:00)
[2020-11-13 09:25] LABS: T4, Free (Free Thyroxine) 1.04 ng/dL (0.78-2.19)
[2020-11-13] MEDS: ASPIRIN 81 MG PO SCH (09:44)
[2020-11-13] MEDS: HEPARIN SODIUM,PORCINE/PF 5,000 UNIT/0.5 ML SYRINGE SQ SCH ×2 (09:46→20:32)
[2020-11-13] MEDS: SACUBITRIL/VALSARTAN 49 MG-51 MG TABLET PO SCH ×2 (09:46→20:33)
[2020-11-13] MEDS: FAMOTIDINE 20 MG/2 ML VIAL IV SCH (09:46)
[2020-11-13] MEDS: MONTELUKAST 10 MG TAB PO SCH (09:46)
[2020-11-13] MEDS: Insulin Aspart (For Pump) 100 UNIT/ML VIAL SQ-PUMP SCH (10:36)
--- NOTE | 2020-11-13 10:46 | ECHOF ---
Referral Reason:CHF MEASUREMENTS -------- HEIGHT: 167.6 cm WEIGHT: 81.7 kg BP: RVIDd: 3.6 cm (< 3.3) IVSd: 1.4 cm (0.6 - 1.1) LVIDd: 3.9 cm (3.9 - 5.3) LVPWd: 1.3 cm (0.6 - 1.1) IVSs: 1.7 cm LVIDs: 3.3 cm LVPWs: 1.7 cm LAESV Index (A-L): 32.32 ml/m Ao Diam: 3.0 cm (2.0 - 3.7) AV Cusp: 1.6 cm (1.5 - 2.6) MV EXCURSION: 12.148 mm (> 18.000) MV EF SLOPE: 118 mm/s (70 - 150) EPSS: 1.2 cm MV E Bryson: 0.47 m/s MV DecT: 255 ms MV A Bryson: 1.11 m/s MV E/A Ratio: 0.42 RAP: 5.00 mmHg RVSP: 93.64 mmHg FINDINGS -------- Sinus rhythm. This was a technically adequate study. The left ventricular size is normal. There is moderate concentric left ventricular hypertrophy. T here is moderate global hypokinesis of LV . Overall left ventricular systolic function is moderate- severely impaired with, an EF between 30 - 35 %. Mitral Doppler inflow pattern suggests diastolic f illing abnormality 14.16. Septal wall motion is delayed and consistent with prior cardiac surgery. The right ventricle is mildly enlarged. LA is midly dilated 29-33ml/m2. The right atrium was not well visualized. Electronic pacemaker lead seen in the right atrial cavity . Interatrial and interventricular septum intact. There is no evidence of aortic regurgitation. There is no evidence of aortic stenosis. Mild mitral annular calcification present. Mild mitral regurgitation is present. Severe tricuspid regurgitation present. There is severe pulmonary hypertension. The right ventric ular systolic pressure, as measured by Doppler, is 93.64mmHg. Trace/mild (physiologic) pulmonic regurgitation. The aortic root size is normal. IVC Not well visulized. There is no pericardial effusion. CONCLUSIONS -------- 1. The left ventricular size is normal. 2. There is moderate concentric left ventricular hypertrophy. 3. There is apical and anteroseptal hypokinesis 4. Overall left ventricular systolic function is moderate-severely impaired with, an EF between 30 - 35 %. 5. Mitral Doppler inflow pattern suggest diastolic filling abnormality 14.16. 6. The right ventricle is mildly enlarged. 7. LA is midly dilated 29-33ml/m2. 8. Mild mitral annular calcification present. 9. Mild mitral regurgitation is present. 10. Severe tricuspid regurgitation present. 11. There is severe pulmonary hypertension. 12. The right ventricular systolic pressure, as measured by Doppler, is 93.64mmHg. 13. Trace/mild (physiologic) pulmonic regurgitation. INTERVENTIONAL RADIOLOGIST: Jacqui Garcia RDCS
[2020-11-13 12:24] LABS: Glucose,Whole Blood 214 mg/dL (75-99)
--- NOTE | 2020-11-13 12:59 | P.CRDCN ---
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 Patient follows with Dr. Ambriz in [place]. We have been asked to see the patient in consultation for congestive heart failure. Patient examined at the bedside. Patient states after her CABG she developed an infection and had her sternal wires removed. She states she subsequently underwent a muscle flap. She reports since that time whenever she exerts herself or does anything physical, she develops discomfort in her shoulder blades. She states yesterday she was getting her RV ready and packing things when she developed pain of her left shoulder blade. At the time of examination this morning, patient denies any discomfort in her shoulders. She denies chest pain or pressure. She denies shortness of breath. Patient was given a one-time dose of Lasix in the emergency room. EKG reveals sinus rhythm with right bundle branch block. Left anterior fascicular block. No previous EKGs for comparison Chest xray cardiomegaly. There is perihilar interstitial airspace opacities and bibasilar airspace opacities suggestive of edema and/or infection. Small bila teral pleural effusions. Consider congestive heart failure. Laboratory data: WBC 4.8. Hemoglobin 11.8. Platelet count 160. Sodium 131. Potassium 4.1. BUN 14. Creatinine 0.63. Magnesium 1.1. Troponin negative 3. BNP 2790. Current home cardiac medications include Coreg 6.25 mg at night, Entresto 49- 51mg BID, Lasix 20 mg daily, Lipitor 20 mg daily, and aspirin 81 mg daily Echocardiogram completed revealing ejection fraction 30-35%, mild mitral regurgitation, severe tricuspid regurgitation, and severe pulmonary hypertension with RVSP of 93.64. REVIEW OF SYSTEMS: At the time of my exam: CONSTITUTIONAL: Denies fever or chills. HEENT: Denies blurred vision, vision changes, or eye pain. Denies hemoptysis CARDIOVASCULAR: Denies chest pain. Denies orthopnea. Denies PND. Denies palpitations RESPIRATORY: Denies shortness of breath. GASTROINTESTINAL: Denies abdominal pain. Denies nausea or vomiting. HEMATOLOGIC: Denies bleeding disorders. GENITOURINARY: Denies any blood in urine. SKIN: Denies pruitis. Denies rash. PHYSICAL EXAM: VITAL SIGNS: Reviewed. GENERAL: Well-developed in no acute distress. HEENT: Head is normocephalic. Pupils are equal, round. Sclerae anicteric. Mucous membranes of the mouth are moist. Neck supple. No JVD or thyromegaly LUNGS: Respirations even and unlabored. Lungs essentially clear to auscultation bilaterally. HEART: Regular rate and rhythm. S1 and S2 heard. ABDOMEN: Soft. Nondistended. Nontender. EXTREMITIES: Normal range of motion. No clubbing or cyanosis. Peripheral pulses intact. No lower extremity edema NEUROLOGIC: Awake and alert. Oriented x 3. ASSESSMENT: Atypical chest pain, troponins negative 3 Acute exacerbation of systolic congestive heart failure, ejection fraction 30- 35% Coronary artery disease with previous CABG 2001 Ischemic cardiomyopathy Hypertension Hyperlipidemia Pulmonary fibrosis Severe pulmonary hypertension PLAN: An acute coronary event has been ruled out Resume home cardiac medications Continue current dose of oral lasix Patient is stable for discharge from a cardiac standpoint She may follow up outpatient with Dr. Ambriz Nurse practitioner note has been reviewed by physician. Signing provider agrees with the documented findings, assessment, and plan of care. Past Medical History Past Medical History: Diabetes Mellitus, GERD/Reflux, Hyperlipidemia, Hypertension, Myocardial Infarction ([place]), Thyroid Disorder Additional Past Medical History / Comment(s): Fribrosis in september 2020 Last Myocardial Infarction Date:: 2001 History of Any Multi-Drug Resistant Organisms: None Reported Past Surgical History: Section, Coronary Bypass/CABG, Hysterectomy, Tubal Ligation Additional Past Surgical History / Comment(s): cataract surgery, hand surgery Past Anesthesia/Blood Transfusion Reactions: Postoperative Nausea & Vomiting (PONV) Past Psychological History: Anxiety Smoking Status: Never smoker Past Alcohol Use History: Rare Past Drug Use History: None Reported - Past Family History Father Family Medical History: Myocardial Infarction ([place]) Brother(s) Additional Family Medical History / Comment(s): Heart surgery Medications and Allergies Home Medications Medication Instructions Recorded Confirmed Type LORazepam [Ativan] 1 mg PO HS 02/02/14 11/12/20 History Omeprazole [PriLOSEC] 40 mg PO HS 02/02/14 11/12/20 History carvediloL [Coreg] 6.25 mg PO HS 02/02/14 11/12/20 History Aspirin EC [Ecotrin Low Dose] 81 mg PO DAILY 11/12/20 11/12/20 History Atorvastatin [Lipitor] 20 mg PO HS 11/12/20 11/12/20 History Cholecalciferol [Vitamin D3 (25 50 mcg PO HS 11/12/20 11/12/20 History Mcg = 1000 Iu)] Docusate [Colace] 100 mg PO DAILY PRN 11/12/20 11/12/20 History Furosemide [Lasix] 20 mg PO DAILY 11/12/20 11/12/20 History Insulin Aspart (For Pump) [NovoLOG 0.01 unit SQ-PUMP CONTINUOUS 11/12/20 11/12/20 History (For Pump)] Levothyroxine Sodium [Synthroid] 100 mcg PO MOTUWETHFRSA 11/12/20 11/12/20 History Montelukast [Singulair] 10 mg PO DAILY 11/12/20 11/12/20 History Multivit with Calcium,Iron,Min 1 tab PO HS 11/12/20 11/12/20 History [Women's Multivitamin] Sacubitril/Valsartan [Entresto 49 1 tab PO BID 11/12/20 11/12/20 History mg-51 mg Tablet] buPROPion XL [Wellbutrin Xl] 150 mg PO HS 11/12/20 11/12/20 History diphenhydrAMINE HCL [Benadryl] 50 mg PO HS 11/12/20 11/12/20 History Allergies Allergy/AdvReac Type Severity Reaction Status Date / Time amoxicillin [From Augmentin] AdvReac Nausea & Verified 11/12/20 16:45 Vomiting clarithromycin [From Biaxin] AdvReac Nausea & Verified 11/12/20 16:45 Vomiting clavulanic acid AdvReac Nausea & Verified 11/12/20 16:45 [From Augmentin] Vomiting codeine AdvReac Nausea & Verified 11/12/20 16:45 Vomiting nitrofurantoin AdvReac Nausea & Verified 11/12/20 16:45 [From Macrobid] Vomiting Physical Exam Vitals: Vital Signs Temp Pulse Pulse Resp BP BP Pulse Ox 11/13/20 12:00 98.1 F 63 18 120/71 94 L 11/13/20 08:00 98.1 F 63 18 120/60 92 L 11/13/20 04:00 98.2 F 68 16 133/68 98 11/13/20 01:29 62 17 11/13/20 00:00 98.1 F 62 17 125/66 98 11/12/20 20:36 63 18 131/78 96 11/12/20 16:59 98.1 F 96 17 137/85 99 11/12/20 13:22 97.6 F 71 18 154/73 99 Intake and Output 11/12/20 11/13/20 11/13/20 22:59 06:59 14:59 Other: Voiding Method Toilet # Voids 1 Weight 81.647 kg 81.3 kg Results 11/13/20 07:10 11/13/20 07:10 Cardiac Enzymes 11/12/20 11/12/20 11/12/20 Range/Units 14:24 14:24 18:24 AST 36 (14-36) U/L Troponin I 0.021 0.034 (0.000-0.034) ng/mL 11/12/20 11/13/20 Range/Units 21:25 07:10 AST 34 (14-36) U/L Troponin I 0.033 (0.000-0.034) ng/mL Coagulation 11/12/20 Range/Units 14:24 PT 10.9 (9.0-12.0) sec APTT 26.4 (22.0-30.0) sec CBC 11/12/20 11/13/20 Range/Units 14:24 07:10 WBC 5.9 4.8 (3.8-10.6) k/uL RBC 3.71 L 3.39 L (3.80-5.40) m/uL Hgb 12.4 11.8 (11.4-16.0) gm/dL Hct 38.2 34.7 (34.0-46.0) % Plt Count 169 160 (150-450) k/uL Comprehensive Metabolic Panel 11/12/20 11/13/20 Range/Units 14:24 07:10 Sodium 129 L 131 L (137-145) mmol/L Potassium 4.3 4.1 (3.5-5.1) mmol/L Chloride 96 L 98 (98-107) mmol/L Carbon Dioxide 24 28 (22-30) mmol/L BUN 15 14 (7-17) mg/dL Creatinine 0.73 0.63 (0.52-1.04) mg/dL Glucose 228 H 121 H (74-99) mg/dL Calcium 9.0 8.4 (8.4-10.2) mg/dL AST 36 34 (14-36) U/L ALT 24 21 (4-34) U/L Alkaline Phosphatase 62 56 (38-126) U/L Total Protein 7.2 6.5 (6.3-8.2) g/dL Albumin 3.9 3.6 (3.5-5.0) g/dL Current Medications Generic Name Dose Route Start Last Admin Trade Name Freq PRN Reason Stop Dose Admin Acetaminophen 650 mg 11/12/20 16:09 Acetaminophen Tab 325 Mg Tab PO Q6HR PRN Mild Pain or Fever > 100.5 Aspirin 81 mg 11/13/20 09:00 11/13/20 09:44 Aspirin 81 Mg PO 81 mg DAILY KATHLEEN Administration Atorvastatin Calcium 20 mg 11/13/20 21:00 Atorvastatin 20 Mg Tab PO HS KATHLEEN Bupropion HCl 150 mg 11/13/20 21:00 Bupropion Xl 150 Mg Tab.Er.24h PO HS KATHLEEN Carvedilol 6.25 mg 11/13/20 21:00 Carvedilol 6.25 Mg Tab PO HS KATHLEEN Cholecalciferol 50 mcg 11/13/20 21:00 Cholecalciferol 25 Mcg (1000 Iu) Tablet PO HS KATHLEEN Docusate Sodium 100 mg 11/13/20 08:36 Docusate 100 Mg Cap PO DAILY PRN Constipation Famotidine 20 mg 11/13/20 21:00 Famotidine 20 Mg Tab PO Q12HR KATHLEEN Furosemide 20 mg 11/13/20 09:00 11/13/20 09:45 Furosemide 20 Mg Tab PO 20 mg DAILY KATHLEEN Administration Heparin Sodium (Porcine) 5,000 unit 11/12/20 21:00 11/13/20 09:46 Heparin Sodium,Porcine/Pf 5,000 Unit/0.5 Ml Syringe SQ 5,000 unit Q12HR KATHLEEN Administration Insulin Aspart 0 unit 11/13/20 06:06 Insulin Aspart (Novolog) 100 Unit/Ml Vial SQ DAILY PRN Insulin Pump Replacement Insulin Aspart 0.01 unit 11/13/20 08:45 11/13/20 10:36 Insulin Aspart (For Pump) 100 Unit/Ml Vial SQ-PUMP Not Given CONTINUOUS KATHLEEN Levothyroxine Sodium 100 mcg 11/13/20 06:30 11/13/20 09:45 Levothyroxine 100 Mcg Tab PO 100 mcg MOTUWETHFRSA KATHLEEN Administration Lorazepam 1 mg 11/12/20 22:23 11/12/20 22:31 Lorazepam 1 Mg Tab PO 1 mg HS PRN Administration Anxiety Miscellaneous Information 1 each 11/13/20 06:06 Insulin Pump Basal Rates 1 Each Misc MISCELLANE Q6HR PRN Blood Sugar - High Protocol Miscellaneous Information 0 unit 11/13/20 07:30 11/13/20 06:32 Insulin Pump Meal Bolus 1 Unit Misc MISCELLANE Not Given ACHS KATHLEEN Protocol Miscellaneous Information 0 unit 11/13/20 06:06 Insulin Pump Correction Bolus 1 Unit Misc MISCELLANE ACHS PRN Blood Sugar - High Protocol Montelukast Sodium 10 mg 11/13/20 09:00 11/13/20 09:46 Montelukast 10 Mg Tab PO 10 mg DAILY KATHLEEN Administration Morphine Sulfate 4 mg 11/12/20 16:09 Morphine Sulfate 4 Mg/Ml Syringe IV Q4HR PRN Severe Pain Naloxone HCl 0.2 mg 11/12/20 16:09 Naloxone 0.4 Mg/Ml 1 Ml Vial IV Q2M PRN Opioid Reversal Sacubitril/Valsartan 1 each 11/13/20 09:00 11/13/20 09:46 Sacubitril/Valsartan 49 Mg-51 Mg Tablet PO 1 each BID KATHLEEN Administration Intake and Output 11/12/20 11/13/20 11/13/20 22:59 06:59 14:59 Other: Voiding Method Toilet # Voids 1 Weight 81.647 kg 81.3 kg 11/13/20 07:10 11/13/20 07:10
[2020-11-13 14:09] LABS: Hemoglobin A1C 8.3 % (4.0-6.0)
[2020-11-13] MEDS: FUROSEMIDE 10 MG/ML 4 ML VIAL IV SCH ×2 (15:52→20:33)
--- NOTE | 2020-11-13 16:04 | P.PN ---
Subjective this is a pleasant 65 years old female with past medical history of diabetes mellitus, hypertension, hyperlipidemia, GERD, hypothyroidism. Also she has history of coronary artery disease status post CABG at age 45. She follows up with clinical documentation consultant Dr. Briggs for she is on insulin pump. Her appeals nurse is Dr. Moreno Presents because of left shoulder blade pain and tenderness are radiating with left arm pain. About 7/10 in severity for the last 4-5 days, pain comes and goes and felt like sharp aggravated by movement. Patient denies trauma. She has chronic,. Also she is complaining of from exertional dyspnea. Her renewable energy trader is Dr. Le and she is on home oxygen of 2 L She denies smoking, alcohol or illicit drugs Patient hemodynamically is a stable and labs reviewed showing unremarkable CBC and INR. Basic metabolic panel showed normal creatinine with low sodium at 129 and height glucose of 228, low magnesium is 1.5 and liver enzymes are unremarkable. Troponin is negative at 0.0-0.03. ProBNP is 2790. Urinalysis showing a glucose urea EKG showing normal sinus rhythm at 73 with right and left fascicular block, bifascicular block, QTC is 449 Chest x-ray showing perihilar interstitial airspace opacity And bibasilar airspace opacity suggestive of edema and/or infection. Small bilateral pleural effusion. Consider congestive heart failure in emergency room patient patient received aspirin, Lasix 1 and placed magnesium as well as morphine. Cartilage team were consulted 11/13/2020 Patient was admitted with left shoulder pain suspicious for coronary artery disease versus cervical spine disease. However shoulder and cervical x-ray showing only mild degenerative disease. Also appeals nurse. Her for discharge. However patient has also acute systolic CHF with ejection fraction of 30-35%, she still feels some dyspnea on exertion and that she is mildly hypoxic down to 90-94% on room air. And she still have basal crepitation. I talked to the patient and she does not want to go home today and she wants to stay at least 1 more day and receive IV Lasix. We're going to monitor creatinine and electrolytes Objective - Vital Signs Vital signs: Vital Signs Temp 98.1 F 11/13/20 12:00 Pulse 63 11/13/20 12:00 Resp 18 11/13/20 12:00 BP 120/71 11/13/20 12:00 Pulse Ox 94 L 11/13/20 12:00 Intake & Output 11/12/20 11/13/20 11/13/20 18:59 06:59 18:59 Weight 81.647 kg 81.3 kg Other: Voiding Method Toilet # Voids 1 - Exam GENERAL: The patient is alert and oriented x3, not in any acute distress. Well developed, well nourished. HEENT: Pupils are round and equally reacting to light. EOMI. No scleral icterus. No conjunctival pallor. Normocephalic, atraumatic. No pharyngeal erythema. No thyromegaly. CARDIOVASCULAR: S1 and S2 present. No murmurs, rubs, or gallops. -PULMONARY: Chest is clear to auscultation, no wheezing . Bilateral basal crepitation ABDOMEN: Soft, nontender, nondistended, normoactive bowel sounds. No palpable organomegaly. MUSCULOSKELETAL: No joint swelling or deformity. EXTREMITIES: No cyanosis, clubbing, or pedal edema. NEUROLOGICAL: Gross neurological examination did not reveal any focal deficits. SKIN: No rashes. no petechiae. - Labs CBC & Chem 7: 11/13/20 07:10 11/13/20 07:10 Labs: Abnormal Lab Results - Last 24 Hours (Table) 11/12/20 11/13/20 11/13/20 Range/Units 21:40 06:16 07:10 RBC (3.80-5.40) m/uL MCV (80.0-100.0) fL Lymphocytes # (1.0-4.8) k/uL Sodium (137-145) mmol/L Glucose (74-99) mg/dL POC Glucose (mg/dL) 150 H 125 H (75-99) mg/dL Hemoglobin A1c 8.3 H (4.0-6.0) % TSH (0.465-4.680) mIU/L 11/13/20 11/13/20 11/13/20 Range/Units 07:10 07:10 12:11 RBC 3.39 L (3.80-5.40) m/uL MCV 102.3 H (80.0-100.0) fL Lymphocytes # 0.7 L (1.0-4.8) k/uL Sodium 131 L (137-145) mmol/L Glucose 121 H (74-99) mg/dL POC Glucose (mg/dL) 214 H (75-99) mg/dL Hemoglobin A1c (4.0-6.0) % TSH 5.950 H (0.465-4.680) mIU/L Assessment and Plan Assessment: Left shoulder pain and tenderness, only mild pain, no tenderness. Cleared by appeals nurse Acute systolic CHF with ejection fraction 30-35% Mild hypervolemic hyponatremia and a due to hyperglycemia Hypertension Hyperlipidemia Hypothyroidism History of GERD Plan: This is a pleasant 65 years old female who presents with shoulder pain and CHF. Patient is cleared by appeals nurse Continue with IV Lasix, monitor creatinine and electrolytes. Possible discharge tomorrow if she keeps improvement Labs and medication were reviewed.. Continue same treatment. Continue with symptomatic treatment. Resume home medication. Monitor lytes and vitals. DVT and GI prophylaxis. Further recommendations as per clinical course of the patient DVT prophylaxis: Subcutaneous heparin GI Prophylaxis: Pepcid
[2020-11-13 17:21] LABS: Glucose,Whole Blood 57 mg/dL (75-99)
[2020-11-13 17:50] LABS: Glucose,Whole Blood 186 mg/dL (75-99)
[2020-11-13 20:29] LABS: Glucose,Whole Blood 113 mg/dL (75-99)
[2020-11-13] MEDS: FAMOTIDINE 20 MG TAB PO SCH (20:32)
[2020-11-13] MEDS ORDERED: carvediloL 6.25 MG TAB PO SCH (21:00)
[2020-11-13] MEDS ORDERED: CHOLECALCIFEROL 25 MCG (1000 IU) TABLET PO SCH (21:00)
[2020-11-13] MEDS ORDERED: ATORVASTATIN 20 MG TAB PO SCH (21:00)
[2020-11-13] MEDS ORDERED: buPROPion XL 150 MG TAB.ER.24H PO SCH (21:00)
[2020-11-13] MEDS: LORazepam 1 MG TAB PO PRN (21:07)
[2020-11-14 02:00] LABS: Glucose,Whole Blood 66 mg/dL (75-99)
[2020-11-14 02:14] LABS: Glucose,Whole Blood 63 mg/dL (75-99)
[2020-11-14 02:33] LABS: Glucose,Whole Blood 83 mg/dL (75-99)
[2020-11-14 07:02] LABS: Glucose,Whole Blood 300 mg/dL (75-99)
[2020-11-14] MEDS: INSULIN PUMP MEAL BOLUS 1 UNIT MISC MISCELLANE SCH ×2 (07:03→12:32)
[2020-11-14] MEDS: HEPARIN SODIUM,PORCINE/PF 5,000 UNIT/0.5 ML SYRINGE SQ SCH (07:30)
[2020-11-14 07:31] VITALS: RESP 18
[2020-11-14] MEDS: SACUBITRIL/VALSARTAN 49 MG-51 MG TABLET PO SCH (07:32)
[2020-11-14] MEDS: FUROSEMIDE 10 MG/ML 4 ML VIAL IV SCH (07:32)
[2020-11-14] MEDS: ASPIRIN 81 MG PO SCH (07:32)
[2020-11-14] MEDS: MONTELUKAST 10 MG TAB PO SCH (07:32)
[2020-11-14] MEDS: FAMOTIDINE 20 MG TAB PO SCH (07:33)
[2020-11-14 08:01] LABS: Calcium 8.4 mg/dL (8.4-10.2); Potassium 4.6 mmol/L (3.5-5.1)
[2020-11-14] MEDS: Insulin Aspart (For Pump) 100 UNIT/ML VIAL SQ-PUMP SCH (08:49)
[2020-11-14 11:25] VITALS: BP 129/65; PULSE 65; TEMP 98.1
--- NOTE | 2020-11-14 11:44 | P.PN ---
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 Patient follows with Dr. Ambriz in [place]. We have been asked to see the patient in consultation for congestive heart failure. Patient examined at the bedside. Patient states after her CABG she developed an infection and had her sternal wires removed. She states she subsequently underwent a muscle flap. She reports since that conner e whenever she exerts herself or does anything physical, she develops discomfort in her shoulder blades. She states yesterday she was getting her RV ready and packing things when she developed pain of her left shoulder blade. At the time of examination this morning, patient denies any discomfort in her shoulders. She denies chest pain or pressure. She denies shortness of breath. Patient was given a one-time dose of Lasix in the emergency room. EKG reveals sinus rhythm with right bundle branch block. Left anterior fascicular block. No previous EKGs for comparison Chest xray cardiomegaly. There is perihilar interstitial airspace opacities and bibasilar airspace opacities suggestive of edema and/or infection. Small bilateral pleural effusions. Consider congestive heart failure. Laboratory data: WBC 4.8. Hemoglobin 11.8. Platelet count 160. Sodium 131. Potassium 4.1. BUN 14. Creatinine 0.63. Magnesium 1.1. Troponin negative 3. BNP 2790. Current home cardiac medications include Coreg 6.25 mg at night, Entresto 49- 51mg BID, Lasix 20 mg daily, Lipitor 20 mg daily, and aspirin 81 mg daily Echocardiogram completed revealing ejection fraction 30-35%, mild mitral regurgitation, severe tricuspid regurgitation, and severe pulmonary hypertension with RVSP of 93.64. 11/14/2020 Patient examined this morning at the bedside. Patient denies chest pain or pressure. She denies shortness of breath. Patient states that she wants to go home today. However she developed diarrhea this morning and is unsure if she is going to be discharged or not. Blood pressure 129/65. Heart rate in the 60s. She is on room air with oxygen saturations greater than 92%. She is afebrile. PHYSICAL EXAM: VITAL SIGNS: Reviewed. GENERAL: Well-developed in no acute distress. HEENT: Head is normocephalic. Pupils are equal, round. Sclerae anicteric. Mucous membranes of the mouth are moist. Neck supple. No JVD or thyromegaly LUNGS: Respirations even and unlabored. Lungs essentially clear to auscultation bilaterally. HEART: Regular rate and rhythm. S1 and S2 heard. ABDOMEN: Soft. Nondistended. Nontender. EXTREMITIES: Normal range of motion. No clubbing or cyanosis. Peripheral pulses intact. No lower extremity edema NEUROLOGIC: Awake and alert. Oriented x 3. ASSESSMENT: Atypical chest pain, troponins negative 3 Acute exacerbation of systolic congestive heart failure, ejection fraction 30- 35% Coronary artery disease with previous CABG 2001 Ischemic cardiomyopathy Hypertension Hyperlipidemia Pulmonary fibrosis Severe pulmonary hypertension PLAN: Continue current cardiac medications Increase oral lasix from 20mg daily to 40mg daily Patient is stable for discharge from a cardiac standpoint She may follow up outpatient with Dr. Ambriz Nurse practitioner note has been reviewed by physician. Signing provider agrees with the documented findings, assessment, and plan of care. Objective - Vital Signs Vital signs: Vital Signs Temp 98.1 F 11/14/20 11:24 Pulse 65 11/14/20 11:24 Resp 18 11/14/20 11:24 BP 129/65 11/14/20 11:24 Pulse Ox 95 11/14/20 11:24 Intake & Output 11/13/20 11/14/20 11/14/20 18:59 06:59 18:59 Intake Total 250 180 Balance 250 180 Weight 81.7 kg Intake: Oral 250 180 Other: Voiding Method Toilet # Voids 1 - Labs CBC & Chem 7: 11/13/20 07:10 11/14/20 06:52 Labs: Abnormal Lab Results - Last 24 Hours (Table) 11/13/20 11/13/20 11/13/20 Range/Units 07:10 12:11 17:07 Sodium (137-145) mmol/L Chloride (98-107) mmol/L BUN (7-17) mg/dL Glucose (74-99) mg/dL POC Glucose (mg/dL) 214 H 57 L (75-99) mg/dL Hemoglobin A1c 8.3 H (4.0-6.0) % 11/13/20 11/13/20 11/14/20 Range/Units 17:48 20:27 01:59 Sodium (137-145) mmol/L Chloride (98-107) mmol/L BUN (7-17) mg/dL Glucose (74-99) mg/dL POC Glucose (mg/dL) 186 H 113 H 66 L (75-99) mg/dL Hemoglobin A1c (4.0-6.0) % 11/14/20 11/14/20 11/14/20 Range/Units 02:13 06:52 07:00 Sodium 130 L (137-145) mmol/L Chloride 94 L (98-107) mmol/L BUN 18 H (7-17) mg/dL Glucose 313 H (74-99) mg/dL POC Glucose (mg/dL) 63 L 300 H (75-99) mg/dL Hemoglobin A1c (4.0-6.0) %
[2020-11-14 12:19] LABS: Glucose,Whole Blood 196 mg/dL (75-99)
--- NOTE | 2020-11-15 00:01 | P.DS ---
Providers Date of admission: 11/12/20 16:10 Attending physician: Main Renee MD Consults: 11/12/20 16:09 Consult Physician Routine Consulting Provider: Adán Troncoso Consult Reason/Comments: CHF, Do you want consulting provider notified?: Yes Primary care physician: Rowena Morris Hospital Course: Diagnoses: Left shoulder pain and tenderness, only mild pain, no tenderness. Cleared by agricultural systems specialist Acute systolic CHF with ejection fraction 30-35% Mild hypervolemic hyponatremia and a due to hyperglycemia Diabetes mellitus on insulin pump with periods of hypoglycemia. Hypertension Hyperlipidemia Hypothyroidism History of GERD Hospital course: this is a pleasant 65 years old female with past medical history of diabetes mellitus, hypertension, hyperlipidemia, GERD, hypothyroidism. Also she has history of coronary artery disease status post CABG at age 45. She follows up with independent crop consultant Dr. Briggs for she is on insulin pump. Her agricultural systems specialist is Dr. Moreno Presents because of left shoulder blade pain and tenderness are radiating with left arm pain, for the last 4-5 days, pain comes and goes and felt like sharp aggravated by movement. EKG showing normal sinus rhythm at 73 with right and left fascicular block, bifascicular block, QTC is 449 Chest x-ray showing perihilar interstitial airspace opacity And bibasilar airspace opacity suggestive of edema and/or infection. Small bilateral pleural effusion. Consider congestive heart failure Electric Truck Operator evaluated the patient and found to have atypical chest pain with 3 negative troponin, they cleared the patient for discharge from this perspective and to continue with conservative treatment and no further testing However patient has also acute systolic CHF with ejection fraction of 30-35%, she still feels some dyspnea on exertion and that she is mildly hypoxic down to 90-94% on room air. And she still have basal crepitation, She received IV Lasix and her oxygen saturation improved 95-98% on room air today. Patient disapp eared, no leg swelling.. Electric Truck Operator cleared The patient for discharge on increased oral dose Lasix from 20 up to 40 mg daily During this morning patient reports 3 episodes of loose bowel movements, by the afternoon patient felt better and she does not want to stay in the hospital anymore and she wants to go home and monitor herself. Patient reports good appetite, tolerating diet well. Denies abdominal pain and abdominal exam is soft. Patient confirmed to staff that her diarrhea has stopped. Patient informed to call 911 on come to emergency if has recurrent diarrhea, abdominal pain, nausea vomiting, fever or any other symptoms and she verbalized understanding and acceptance Patient glucose was on the low side overnight, patient remains on insulin pump which states it was adjusted by her independent crop consultant Dr. Briggs about 2 weeks ago. 2, to the hospital. Patient informed and risk of hypoglycemia are explained to the patient extensively including but not limited to the risk of, stroke or altered mental status, she verbalized understanding however she wants to keep that insulin pump. Because of this issue was instructed to use regular diet rather than diabetic diet, keep monitoring her sugar 4 times a day and to come to the hospital if it is less than 70 or more than 400 and to go see her independent crop consultant Dr. Briggs in 1-2 days to adjust her insulin pump and she agrees to all these recommendations already of discharge patient is back to baseline, no more shoulder or neck pain. No other musculoskeletal pain, no chest pain or dyspnea. No coughing. No change in Or bowel habits. No fever. Her diarrhea the morning resolved as per patient. She tolerates diet. Patient was cleared for discharge by cardiology service. Problems and management plan were discussed with the patient and he verbalized understanding and acceptance Patient was found stable and can be discharged home however he needs follow-up as an outpatient. Patient was instructed to follow up with PCP rowena within one week and patient agrees Patient was instructed to follow up with Her agricultural systems specialist Dr. Moreno in one week and her independent crop consultant Dr. Briggs in 1-2 days and she agrees to call and make her own appointments as today is weakened Physical exam Gen: patient is a AAOx3, no distress CVS: S1-S2, RRR, no murmur Lungs: B/L CTA, no wheezing Abdomen: soft, no distention, no tenderness, positive bowel sounds Extremity: no leg edema or induration Time spent more than 35 minutes Patient Condition at Discharge: Stable Plan - Discharge Summary Discharge Rx Participant: Yes New Discharge Prescriptions: New Furosemide [Lasix] 40 mg PO DAILY #30 tab Continue carvediloL [Coreg] 6.25 mg PO HS Omeprazole [PriLOSEC] 40 mg PO HS LORazepam [Ativan] 1 mg PO HS Montelukast [Singulair] 10 mg PO DAILY diphenhydrAMINE HCL [Benadryl] 50 mg PO HS Docusate [Colace] 100 mg PO DAILY PRN PRN Reason: Constipation Cholecalciferol [Vitamin D3 (25 Mcg = 1000 Iu)] 50 mcg PO HS Sacubitril/Valsartan [Entresto 49 mg-51 mg Tablet] 1 tab PO BID Levothyroxine Sodium [Synthroid] 100 mcg PO MOTUWETHFRSA Atorvastatin [Lipitor] 20 mg PO HS Aspirin EC [Ecotrin Low Dose] 81 mg PO DAILY Multivit with Calcium,Iron,Min [Women's Multivitamin] 1 tab PO HS Insulin Aspart (For Pump) [NovoLOG (For Pump)] 0.01 unit SQ-PUMP CONTINUOUS Discontinued Furosemide [Lasix] 20 mg PO DAILY buPROPion XL [Wellbutrin Xl] 150 mg PO HS Discharge Medication List LORazepam [Ativan] 1 mg PO HS 02/02/14 [History] Omeprazole [PriLOSEC] 40 mg PO HS 02/02/14 [History] carvediloL [Coreg] 6.25 mg PO HS 02/02/14 [History] Aspirin EC [Ecotrin Low Dose] 81 mg PO DAILY 11/12/20 [History] Atorvastatin [Lipitor] 20 mg PO HS 11/12/20 [History] Cholecalciferol [Vitamin D3 (25 Mcg = 1000 Iu)] 50 mcg PO HS 11/12/20 [History] Docusate [Colace] 100 mg PO DAILY PRN 11/12/20 [History] Insulin Aspart (For Pump) [NovoLOG (For Pump)] 0.01 unit SQ-PUMP CONTINUOUS 11/12/20 [History] Levothyroxine Sodium [Synthroid] 100 mcg PO MOTUWETHFRSA 11/12/20 [History] Montelukast [Singulair] 10 mg PO DAILY 11/12/20 [History] Multivit with Calcium,Iron,Min [Women's Multivitamin] 1 tab PO HS 11/12/20 [History] Sacubitril/Valsartan [Entresto 49 mg-51 mg Tablet] 1 tab PO BID 11/12/20 [History] diphenhydrAMINE HCL [Benadryl] 50 mg PO HS 11/12/20 [History] Furosemide [Lasix] 40 mg PO DAILY #30 tab 11/14/20 [Rx] Follow up Appointment(s)/Referral(s): Alexandra Brown MD [Primary Care Provider] - 1-2 days (Office was closed - please call on SundayNovember 15 to make an appointment. ) Kristie Ambriz MD [REFERRING] - 1 Week (Office closed - please call to make an appointment.) Giana Briggs MD [STAFF PHYSICIAN] - 1-2 Days (Insulin pump management) Patient Instructions/Handouts: Heart Failure (DC) Activity/Diet/Wound Care/Special Instructions: Heart healthy diet; we strongly encourage fluid restriction to 1200 mL per day Activities are restricted until you have see your doctor WE Recommended to follow-up with your agricultural systems specialist Dr. Ashby in one week, please call to make appointment. You have the contact information as you informed the medical team We recommend you check your glucose 4 times a day, before each meal and at bedtime. Also check glucose in the middle of the night if you can. If her glucose less than 70 or more than 400 then called 911 on come to emergency room Also you can keep results in a log and bring continue her doctor on your appointment date Follow-up with your independent crop consultant Dr. Chester FAN as soon as possible in 1-2 days for your insulin pump Management and adjustment Discharge Disposition: HOME SELF-CARE
[2020-11-15] MEDS ORDERED: FUROSEMIDE 40 MG TAB PO SCH (09:00)
== END 2020-11-14 13:57 | disposition home or self-care (01) | DRG 292 ==
LOC: EC 13:07 → 3SCARD 16:10
PROVIDERS: ADMIT Internal Medicine; ATTEND Internal Medicine
DX: I11.0 Hypertensive heart disease with heart failure (principal); I45.2 Bifascicular block; E87.1 Hypo-osmolality and hyponatremia; M54.6 Pain in thoracic spine; I50.23 Acute on chronic systolic (congestive) heart failure; I25.10 Atherosclerotic heart disease of native coronary artery without angina pectoris; Z95.1 Presence of aortocoronary bypass graft; Z79.82 Long term (current) use of aspirin; Z79.4 Long term (current) use of insulin; Z79.890 Hormone replacement therapy; Z20.822 Contact with and (suspected) exposure to COVID-19; E78.5 Hyperlipidemia, unspecified; I25.2 Old myocardial infarction; K21.9 Gastro-esophageal reflux disease without esophagitis; M25.512 Pain in left shoulder; D64.9 Anemia, unspecified; R79.89 Other specified abnormal findings of blood chemistry; I25.5 Ischemic cardiomyopathy; E11.65 Type 2 diabetes mellitus with hyperglycemia; E03.9 Hypothyroidism, unspecified; J84.10 Pulmonary fibrosis, unspecified; R07.89 Other chest pain; I27.20 Pulmonary hypertension, unspecified; R19.7 Diarrhea, unspecified; F41.9 Anxiety disorder, unspecified; Z82.49 Family history of ischemic heart disease and other diseases of the circulatory system; Z90.710 Acquired absence of both cervix and uterus; Z96.41 Presence of insulin pump (external) (internal); Z79.899 Other long term (current) drug therapy
CPT/HCPCS: 36415; 71046; 72050; 80048; 80053; 81001; 83036; 83735; 83880; 84439; 84443; 84484; 85025; 85610; 85730; 87635; 93005; 93306; 94760; 99285

== ENCOUNTER → 2020-11-29 | Outpatient (CLI) | payer MEDICARE ==
--- NOTE | 2020-11-29 11:42 | CT ---
EXAMINATION TYPE: CT chest wo con DATE OF EXAM: 11/29/2020 COMPARISON: Chest CT October 13, 2017 HISTORY: Difficulty breathing. CT DLP: 613.9 mGycm. Automated Exposure Control for Dose Reduction was Utilized. TECHNIQUE: CT scan of the thorax is performed without IV contrast. High-resolution protocol with 1 m m sequences obtained at 10 mm intervals in both supine and prone technique. FINDINGS: LUNGS: There is mild to moderate underlying emphysematous change redemonstrated. There is persistent subpleural fibrosis and reticulation with distortion noted in both lungs greatest in the bases with h oneycombing is redemonstrated. With no significant change or progression from prior study. No new are as of consolidation. No pleural effusion or pneumothorax is seen bilaterally. No significant bronchie ctasis is present. MEDIASTINUM: Lack of IV contrast Technique are noted to limit evaluation for mediastinal and especially hilar adenopathy. There are no definitive greater than 1 cm mediastinal lymph nodes. Post-CABG changes with mediastinal clips and s ternal wires is redemonstrated . There is persistent cardiomegaly with dual lead pacemaker/AICD. Enla rged pulmonary arteries consistent with underlying pulmonary artery hypertension remains present. OTHER: Small hiatal hernia is noted. Multilevel spurring in the spine again seen. IMPRESSION: Cardiomegaly and Mild to moderate underlying emphysematous change with moderate bilateral peripheral interstitial fibrosis noted most prominent in the lower lobes, consider IPF. No significa nt fibrotic progression from prior CT 2018.
== END | disposition home or self-care (01) ==
LOC: RADCTMAIN 10:55
PROVIDERS: ATTEND Internal Medicine
DX: J84.10 Pulmonary fibrosis, unspecified (principal); I51.7 Cardiomegaly
CPT/HCPCS: 71250

== ENCOUNTER → 2020-12-15 | Outpatient (CLI) | payer MEDICARE ==
--- NOTE | 2020-12-17 11:42 | MM ---
Reason for exam: screening (asymptomatic). Last mammogram was performed 1 year and 7 months ago. History: Patient is postmenopausal. Benign core biopsy of the left breast, 2000. Physical Findings: A clinical breast exam by your physician is recommended on an annual basis and results should be correlated with mammographic findings. MG 3D Screening Mammo W/Cad Bilateral CC and MLO view(s) were taken. Prior study comparison: May 09, 2019, bilateral MG 3d screening mammo w/cad. April 20, 2014, bilateral MG screening mammo w CAD. The breast tissue is extremely dense which could obscure a lesion on mammography. Previous mammotome biopsy in the left breast. Benign secretory and oil cyst calcifications. Lateral left CC asymmetric density is more defined and incompletely disperses on 3D view. ASSESSMENT: Incomplete: need additional imaging evaluation, BI-RAD 0 RECOMMENDATION: Special view mammogram of the left breast. (3D) If lesion persists on supplemental views, image directed ultrasound is recommended. [facility] will attempt to contact patient to return for supplemental views and ultrasound if indicated.
== END | disposition home or self-care (01) ==
LOC: RADMAMWWP 10:56
PROVIDERS: ATTEND Internal Medicine
DX: Z12.31 Encounter for screening mammogram for malignant neoplasm of breast (principal)
CPT/HCPCS: 77063; 77067

== ENCOUNTER → 2020-12-15 | Outpatient (CLI) | payer MEDICARE ==
--- NOTE | 2020-12-16 09:50 | BD ---
EXAMINATION TYPE: Axial Bone Density DATE OF EXAM: 12/15/2020 COMPARISON: NONE CLINICAL HISTORY: Height: 65 Weight: 182.3 FRAX RISK QUESTIONS: Alcohol (3 or more units per day): no Family History (Parent hip fracture): no Glucocorticoids (More than 3mos): no (Ex: prednisone, prednisolone, methylprednisolone, dexamethasone, and hydrocortisone). History of Fracture in Adulthood: no Secondary Osteoporosis: 1. Type 1 Diabetes: yes 2. Hyperthyroidism: no 3. Menopause before 45: no 4. Malnutrition: no 5. Chronic liver disease: no Rheumatoid Arthritis: no Current Tobacco Use: no RISK FACTORS HISTORY OF: Surgery to Spine/Hip(right/left)/Wrist (right/left): no Family History of Osteoporosis: no Active: yes Diet low in dairy products/other sources of calcium: yes Postmenopausal woman: age 47 Lost more than 2 inches in height since high school: no MEDICATIONS: insulin, heart meds, blood pressure, cholesterol Additional History: EXAM MEASUREMENTS: Bone mineral densitometry was performed using the [employer] Cord Blood [employer] System. Bone mineral density as measured about the Lumbar spine is: ----- L1-L4(G/cm2): 1.149 T Score Values are as follows: ----- L2: -1.1 ----- L3: 0.3 ----- L4: 0.7 ----- L1-L4: -0.3 Bone mineral density : baseline Bone mineral density about the R hip (g/cm2): 0.909 Bone mineral density about the L hip (g/cm2): 0.844 T Score values are as follows: -----R Neck: -0.9 -----L Neck: -1.4 -----R Total: -0.7 -----L Total: -1.1 Bone mineral density : baseline IMPRESSION: Normal bone mineral density. NOTE: T-SCORE=SD OF THE YOUNG ADULT MEAN.
== END | disposition home or self-care (01) ==
LOC: RADBDWWP 10:59
PROVIDERS: ATTEND Obstetrics & Gynecology
DX: Z12.31 Encounter for screening mammogram for malignant neoplasm of breast (principal); N95.1 Menopausal and female climacteric states; M85.88 Other specified disorders of bone density and structure, other site
CPT/HCPCS: 77080

== ENCOUNTER 2020-12-23 11:19 | Inpatient (IN) | payer MEDICARE ==
[2020-12-23] MEDS ORDERED: ONDANSETRON 4 MG/2 ML VIAL IVP STA (11:38)
[2020-12-23] MEDS ORDERED: SODIUM CHLORIDE 0.9% 1,000 ML IV STA (11:38)
--- NOTE | 2020-12-23 11:43 | ED ---
General Adult HPI - General Chief complaint: Syncope Stated complaint: syncope, vomiting Time Seen by Provider: 12/23/20 11:20 Source: patient, RN notes reviewed, old records reviewed Mode of arrival: ambulatory Limitations: no limitations - History of Present Illness Initial comments: This is a 65-year-old female who presents to the emergency department complaining of feeling weak this morning she went out to breakfast with her she had breakfast got done and felt queasy she stood up and passed out she does not how long she was up and she doesn't believe she hurt anything she doesn't complain of hitting her head or having any neck pain. Patient denies chest pain or abdominal pain. Patient has any palpitations. Patient states she has vomited a couple times as being in the emergency department. Patient denies abdominal pain currently. Patient denies any fever chills per patient states last night she felt completely fine. - Related Data Home Medications Medication Instructions Recorded Confirmed LORazepam [Ativan] 1 mg PO HS 02/02/14 12/23/20 Omeprazole [PriLOSEC] 40 mg PO HS 02/02/14 12/23/20 carvediloL [Coreg] 6.25 mg PO HS 02/02/14 12/23/20 Aspirin EC [Ecotrin Low Dose] 81 mg PO DAILY 11/12/20 12/23/20 Atorvastatin [Lipitor] 20 mg PO HS 11/12/20 12/23/20 Cholecalciferol [Vitamin D3 (25 50 mcg PO HS 11/12/20 12/23/20 Mcg = 1000 Iu)] Docusate [Colace] 100 mg PO DAILY PRN 11/12/20 12/23/20 Insulin Aspart (For Pump) [NovoLOG 0.01 unit SQ-PUMP CONTINUOUS 11/12/2012/23 (For Pump)] Levothyroxine Sodium [Synthroid] 100 mcg PO MOTUWETHFRSA 11/12/20 12/23/20 Montelukast [Singulair] 10 mg PO DAILY 11/12/20 12/23/20 Multivit with Calcium,Iron,Min 1 tab PO HS 11/12/20 12/23/20 [Women's Multivitamin] Sacubitril/Valsartan [Entresto 49 1 tab PO BID 11/12/20 12/23/20 mg-51 mg Tablet] diphenhydrAMINE HCL [Benadryl] 50 mg PO HS 11/12/20 12/23/20 buPROPion HCL [buPROPion HCL Xl] 150 mg PO DAILY 12/23/20 12/23/20 Previous Rx's Medication Instructions Recorded Furosemide [Lasix] 40 mg PO DAILY #30 tab 11/14/20 Allergies Allergy/AdvReac Type Severity Reaction Status Date / Time amoxicillin [From Augmentin] AdvReac Nausea & Verified 12/23/20 13:22 Vomiting clarithromycin [From Biaxin] AdvReac Nausea & Verified 12/23/20 13:22 Vomiting clavulanic acid AdvReac Nausea & Verified 12/23/20 13:22 [From Augmentin] Vomiting codeine AdvReac Nausea & Verified 12/23/20 13:22 Vomiting nitrofurantoin AdvReac Nausea & Verified 12/23/20 13:22 [From Macrobid] Vomiting Review of Systems ROS Statement: Those systems with pertinent positive or pertinent negative responses have been documented in the HPI. ROS Other: All systems not noted in ROS Statement are negative. Past Medical History Past Medical History: Diabetes Mellitus, GERD/Reflux, Hyperlipidemia, Hypertension, Myocardial Infarction ([place]), Thyroid Disorder Additional Past Medical History / Comment(s): Fribrosis in september 2020 Last Myocardial Infarction Date:: 2001 History of Any Multi-Drug Resistant Organisms: None Reported Past Surgical History: Section, Coronary Bypass/CABG, Hysterectomy, Tubal Ligation Additional Past Surgical History / Comment(s): cataract surgery, hand surgery Past Anesthesia/Blood Transfusion Reactions: Postoperative Nausea & Vomiting (PONV) Past Psychological History: Anxiety Smoking Status: Never smoker Past Alcohol Use History: Rare Past Drug Use History: None Reported - Past Family History Father Family Medical History: Myocardial Infarction ([place]) Brother(s) Additional Family Medical History / Comment(s): Heart surgery General Exam - General Exam Comments Initial Comments: GENERAL: Patient is well-developed and well-nourished. Patient is nontoxic and well- hydrated and is in mild distress. ENT: Neck is soft and supple. No significant lymphadenopathy is noted. Oropharynx is clear. Moist mucous membranes. Neck has full range of motion without eliciting any pain. EYES: The sclera were anicteric and conjunctiva were pink and moist. Extraocular movements were intact and pupils were equal round and reactive to light. Eyelids were unremarkable. PULMONARY: Unlabored respirations. Good breath sounds bilaterally. No audible rales rhonchi or wheezing was noted. CARDIOVASCULAR: There is a regular rate and rhythm without any murmurs gallops or rubs. ABDOMEN: Soft and nontender with normal bowel sounds. SKIN: Skin is clear with no lesions or rashes and otherwise unremarkable. NEUROLOGIC: Patient is alert and oriented x3. Cranial nerves II through XII are grossly intact. Motor and sensory are also intact. Normal speech, volume and content. Symmetrical smile. MUSCULOSKELETAL: Normal extremities with adequate strength and full range of motion. LYMPHATICS: No significant lymphadenopathy is noted PSYCHIATRIC: Normal psychiatric evaluation. Limitations: no limitations Course Vital Signs 12/23/20 12/23/20 11:20 11:56 Temperature 97.6 F Pulse Rate 75 Pulse Rate [ 77 Sitting] Pulse Rate [ 68 Standing] Pulse Rate [ 72 Supine] Respiratory 20 Rate Blood Pressure 101/59 Blood Pressure 106/56 [Sitting] Blood Pressure 101/52 [Standing] Blood Pressure 93/54 [Supine] O2 Sat by Pulse 94 L Oximetry Medical Decision Making - Medical Decision Making EKG shows normal sinus rhythm at 80 bpm MA interval is 170 QRS is 106 QT interval 412 QTC is 475. Patient's EKG shows no ST segment elevation or depression. came in and indicated that the person she was out for at least 5 minutes. I spoke with Dr. Jean Baptiste he agreed to admit the patient and I wrote admitting orders. - Lab Data Result diagrams: 12/23/20 11:55 12/23/20 11:55 Lab Results 12/23/20 12/23/20 12/23/20 Range/Units 11:55 11:55 11:55 WBC 7.0 (3.8-10.6) k/uL RBC 3.66 L (3.80-5.40) m/uL Hgb 12.6 (11.4-16.0) gm/dL Hct 38.9 (34.0-46.0) % MCV 106.1 H (80.0-100.0) fL MCH 34.3 (25.0-35.0) pg MCHC 32.3 (31.0-37.0) g/dL RDW 13.7 (11.5-15.5) % Plt Count 203 (150-450) k/uL MPV 7.5 Neutrophils % 84 % Lymphocytes % 7 % Monocytes % 5 % Eosinophils % 1 % Basophils % 0 % Neutrophils # 5.9 (1.3-7.7) k/uL Lymphocytes # 0.5 L (1.0-4.8) k/uL Monocytes # 0.4 (0-1.0) k/uL Eosinophils # 0.1 (0-0.7) k/uL Basophils # 0.0 (0-0.2) k/uL Macrocytosis Moderate PT 11.2 (9.0-12.0) sec INR 1.1 (<1.2) APTT 26.5 (22.0-30.0) sec Sodium 128 L (137-145) mmol/L Potassium 4.7 (3.5-5.1) mmol/L Chloride 94 L (98-107) mmol/L Carbon Dioxide 23 (22-30) mmol/L Anion Gap 11 mmol/L BUN 13 (7-17) mg/dL Creatinine 0.86 (0.52-1.04) mg/dL Est GFR (CKD-EPI)AfAm 83 (>60 ml/min/1.73 sqM) Est GFR (CKD-EPI)NonAf 72 (>60 ml/min/1.73 sqM) Glucose 315 H (74-99) mg/dL POC Glucose (mg/dL) (75-99) mg/dL POC Glu Inclinometer Tester ID Calcium 9.0 (8.4-10.2) mg/dL Magnesium 1.5 L (1.6-2.3) mg/dL Total Bilirubin 0.8 (0.2-1.3) mg/dL AST 42 H (14-36) U/L ALT 29 (4-34) U/L Alkaline Phosphatase 90 (38-126) U/L Troponin I (0.000-0.034) ng/mL Total Protein 6.7 (6.3-8.2) g/dL Albumin 3.8 (3.5-5.0) g/dL 12/23/20 12/23/20 Range/Units 11:55 12:04 WBC (3.8-10.6) k/uL RBC (3.80-5.40) m/uL Hgb (11.4-16.0) gm/dL Hct (34.0-46.0) % MCV (80.0-100.0) fL MCH (25.0-35.0) pg MCHC (31.0-37.0) g/dL RDW (11.5-15.5) % Plt Count (150-450) k/uL MPV Neutrophils % % Lymphocytes % % Monocytes % % Eosinophils % % Basophils % % Neutrophils # (1.3-7.7) k/uL Lymphocytes # (1.0-4.8) k/uL Monocytes # (0-1.0) k/uL Eosinophils # (0-0.7) k/uL Basophils # (0-0.2) k/uL Macrocytosis PT (9.0-12.0) sec INR (<1.2) APTT (22.0-30.0) sec Sodium (137-145) mmol/L Potassium (3.5-5.1) mmol/L Chloride (98-107) mmol/L Carbon Dioxide (22-30) mmol/L Anion Gap mmol/L BUN (7-17) mg/dL Creatinine (0.52-1.04) mg/dL Est GFR (CKD-EPI)AfAm (>60 ml/min/1.73 sqM) Est GFR (CKD-EPI)NonAf (>60 ml/min/1.73 sqM) Glucose (74-99) mg/dL POC Glucose (mg/dL) 271 H (75-99) mg/dL POC Glu Inclinometer Tester ID Soraida Irizarry Calcium (8.4-10.2) mg/dL Magnesium (1.6-2.3) mg/dL Total Bilirubin (0.2-1.3) mg/dL AST (14-36) U/L ALT (4-34) U/L Alkaline Phosphatase (38-126) U/L Troponin I 0.015 (0.000-0.034) ng/mL Total Protein (6.3-8.2) g/dL Albumin (3.5-5.0) g/dL Disposition Clinical Impression: Syncope, Hyponatremia, Hypomagnesemia Disposition: ADMITTED IP TO THIS [facility] Referrals: Alexandra Brown MD [Primary Care Provider] - 1-2 days Time of Disposition: 13:58
[2020-12-23 12:05] LABS: Glucose,Whole Blood 271 mg/dL (75-99)
[2020-12-23 12:11] LABS: Basophils % (A) 0 %; Eosinophils # (A) 0.1 k/uL (0-0.7); Eosinophils % (A) 1 %; HCT 38.9 % (34.0-46.0); HGB 12.6 gm/dL (11.4-16.0); Lymphocytes # (A) 0.5 k/uL (1.0-4.8); Lymphocytes % (A) 7 %; MCH 34.3 pg (25.0-35.0); MCHC 32.3 g/dL (31.0-37.0); MCV 106.1 fL (80.0-100.0); Macrocytosis Moderate; Mean Platelet Volume 7.5; Monocytes # (A) 0.4 k/uL (0-1.0); Monocytes % (A) 5 %; Neutrophils # (A) 5.9 k/uL (1.3-7.7); Neutrophils % (A) 84 %; Platelet Count 203 k/uL (150-450); RBC 3.66 m/uL (3.80-5.40); RDW 13.7 % (11.5-15.5)
[2020-12-23 12:22] LABS: Albumin 3.8 g/dL (3.5-5.0); Magnesium 1.5 mg/dL (1.6-2.3); Potassium 4.7 mmol/L (3.5-5.1); Total Bilirubin 0.8 mg/dL (0.2-1.3); Total Protein 6.7 g/dL (6.3-8.2)
[2020-12-23 12:33] LABS: INR 1.1 (<1.2); Partial Thromboplastin Time 26.5 sec (22.0-30.0); Prothrombin Time 11.2 sec (9.0-12.0)
--- NOTE | 2020-12-23 12:38 | XR ---
EXAMINATION TYPE: XR chest 2V DATE OF EXAM: 12/23/2020 COMPARISON: 11/12/2020 HISTORY: Chest pain TECHNIQUE: Frontal and lateral views of the chest are obtained. FINDINGS: Heart size is enlarged. Left chest wall generator device with stable leads. Multiple overl ritchie leads. Patchy bibasilar airspace opacities are similar to prior exam which may represent the pat ient's chronic interstitial pulmonary fibrosis. Emphysematous changes. No pleural effusion or pneumot horax. IMPRESSION: 1. Stable cardiomegaly. Left infraclavicular generator device with stable leads. 2. Bibasilar airspace opacities are similar to prior exam suggestive of chronic small interstitial pu lmonary fibrosis. Findings are stable.
[2020-12-23] MEDS ORDERED: NITROGLYCERIN SL TABS 0.4 MG TAB SUBLINGUAL PRN (14:00)
[2020-12-23] MEDS: MAGNESIUM SULFATE-D5W PMX 1 GM in DEXTROSE/WATER 1 100ML.BAG IVPB SCH ×2 (14:21→15:46)
[2020-12-23] MEDS ORDERED: DOCUSATE 100 MG CAP PO PRN (16:02)
[2020-12-23] MEDS ORDERED: SODIUM CHLORIDE 0.9% 1,000 ML IV SCH (16:15)
[2020-12-23 17:09] LABS: Glucose,Whole Blood 229 mg/dL (75-99)
--- NOTE | 2020-12-23 17:32 | P.HPIM ---
History of Present Illness Patient's 65-year-old female came in with compensative generalized weakness and lightheadedness, syncopal episode. Patient had an EKG which showed normal sinus rhythm with some ST-T wave changes which appear to be chronic. Patient had 3 sets similar syncopal episodes in the past. Patient denied any seizure-like activity tongue biting loss of bowel or bladder incontinence. Patient does have history of congestive heart failure, ejection fraction 30-35%, presently has an AICD in place. Patient is also on Lasix and Entresto, patient does have fine crackles which are chronic and secondary to pulmonary fibrosis patient chest x-r ay is consistent with the pulmonary fibrosis I'll obtain a BNP patient today doesn't have any pedal or pedal edema or JVD at this time. Patient is bit hyponatremic at 128. Patient has a [employer]tronic AICD REVIEW OF SYSTEMS: CONSTITUTIONAL: No fever, no malaise, no fatigue. HEENT: No recent visual problems or hearing problems. Denied any sore throat. CARDIOVASCULAR: No chest pain, orthopnea, PND, no palpitations, PULMONARY: No shortness of breath, no cough, no hemoptysis. GASTROINTESTINAL: No diarrhea, no nausea, no vomiting, no abdominal pain. NEUROLOGICAL: No headaches, no weakness, no numbness. HEMATOLOGICAL: Denies any bleeding or petechiae. GENITOURINARY: Denies any burning micturition, frequency, or urgency. MUSCULOSKELETAL/RHEUMATOLOGICAL: Denies any joint pain, swelling, or any muscle pain. ENDOCRINE: Denies any polyuria or polydipsia. The rest of the 14-point review of systems is negative. PHYSICAL EXAMINATION: GENERAL: The patient is alert and oriented x3, not in any acute distress. Well developed, well nourished. HEENT: Pupils are round and equally reacting to light. EOMI. No scleral icterus. No conjunctival pallor. Normocephalic, atraumatic. No pharyngeal erythema. No thyromegaly. CARDIOVASCULAR: S1 and S2 present. No murmurs, rubs, or gallops. PULMONARY: Chest is clear to auscultation, no wheezing or crackles. ABDOMEN: Soft, nontender, nondistended, normoactive bowel sounds. No palpable organomegaly. MUSCULOSKELETAL: No joint swelling or deformity. EXTREMITIES: No cyanosis, clubbing, or pedal edema. NEUROLOGICAL: Gross neurological examination did not reveal any focal deficits. SKIN: No rashes. Assessment and plan -Syncope: Multiple such episodes patient has an AICD which will be interrogated and cardiology will evaluate the patient will hold off on diuretics temporarily because of concerns of intravascular volume depletion. -Congestive heart failure chronic systolic dysfunction without any acute exacerbation patient appears to be mildly hypovolemic leading to syncopal episode -Hyperthyroidism -Hyperlipidemia -Gastroesophageal reflux disease -Type 2 diabetes mellitus uncontrolled elevated blood sugars and hypoglycemia patient has an insulin pump which she'll continue -Coronary disease with CABG in the past patient has ischemic cardiomyopathy DVT prophylaxis: Lovenox Past Medical History Past Medical History: Heart Failure, Diabetes Mellitus, GERD/Reflux, Hyperlipidemia, Hypertension, Myocardial Infarction ([place]), Thyroid Disorder Additional Past Medical History / Comment(s): Fribrosis in september 2020 Last Myocardial Infarction Date:: 2001 History of Any Multi-Drug Resistant Organisms: None Reported Past Surgical History: Section, Coronary Bypass/CABG, Hysterectomy, Tubal Ligation Additional Past Surgical History / Comment(s): cataract surgery, hand surgery Past Anesthesia/Blood Transfusion Reactions: Postoperative Nausea & Vomiting (PONV) Past Psychological History: Anxiety Smoking Status: Never smoker Past Alcohol Use History: Rare Past Drug Use History: None Reported - Past Family History Father Family Medical History: Myocardial Infarction ([place]) Brother(s) Additional Family Medical History / Comment(s): Heart surgery Medications and Allergies Home Medications Medication Instructions Recorded Confirmed Type LORazepam [Ativan] 1 mg PO HS 02/02/14 12/23/20 History Omeprazole [PriLOSEC] 40 mg PO HS 02/02/14 12/23/20 History carvediloL [Coreg] 6.25 mg PO HS 02/02/14 12/23/20 History Aspirin EC [Ecotrin Low Dose] 81 mg PO DAILY 11/12/20 12/23/20 History Atorvastatin [Lipitor] 20 mg PO HS 11/12/20 12/23/20 History Cholecalciferol [Vitamin D3 (25 50 mcg PO HS 11/12/20 12/23/20 History Mcg = 1000 Iu)] Docusate [Colace] 100 mg PO DAILY PRN 11/12/20 12/23/20 History Insulin Aspart (For Pump) [NovoLOG 0.01 unit SQ-PUMP CONTINUOUS 11/12/20 12/23/20 History (For Pump)] Levothyroxine Sodium [Synthroid] 100 mcg PO MOTUWETHFRSA 11/12/20 12/23/20 History Montelukast [Singulair] 10 mg PO DAILY 11/12/20 12/23/20 History Multivit with Calcium,Iron,Min 1 tab PO HS 11/12/20 12/23/20 History [Women's Multivitamin] Sacubitril/Valsartan [Entresto 49 1 tab PO BID 11/12/20 12/23/20 History mg-51 mg Tablet] diphenhydrAMINE HCL [Benadryl] 50 mg PO HS 11/12/20 12/23/20 History Furosemide [Lasix] 40 mg PO DAILY #30 tab 11/14/20 12/23/20 Rx buPROPion HCL [buPROPion HCL Xl] 150 mg PO DAILY 12/23/20 12/23/20 History Allergies Allergy/AdvReac Type Severity Reaction Status Date / Time amoxicillin [From Augmentin] AdvReac Nausea & Verified 12/23/20 13:22 Vomiting clarithromycin [From Biaxin] AdvReac Nausea & Verified 12/23/20 13:22 Vomiting clavulanic acid AdvReac Nausea & Verified 12/23/20 13:22 [From Augmentin] Vomiting codeine AdvReac Nausea & Verified 12/23/20 13:22 Vomiting nitrofurantoin AdvReac Nausea & Verified 12/23/20 13:22 [From Macrobid] Vomiting Physical Exam Vitals: Vital Signs Temp Pulse Pulse Pulse Pulse Resp BP 12/23/20 15:48 62 18 102/64 12/23/20 14:28 61 18 118/67 12/23/20 11:56 77 68 72 12/23/20 11:20 97.6 F 75 20 101/59 BP BP BP Pulse Ox 12/23/20 15:48 98 12/23/20 14:28 98 12/23/20 11:56 106/56 101/52 93/54 12/23/20 11:20 94 L Intake and Output 12/23/20 12/23/20 12/23/20 06:59 14:59 22:59 Other: Weight 81.647 kg Results CBC & Chem 7: 12/23/20 11:55 12/23/20 11:55 Labs: Abnormal Lab Results - Last 24 Hours (Table) 12/23/20 12/23/20 12/23/20 Range/Units 11:55 11:55 12:04 RBC 3.66 L (3.80-5.40) m/uL MCV 106.1 H (80.0-100.0) fL Lymphocytes # 0.5 L (1.0-4.8) k/uL Sodium 128 L (137-145) mmol/L Chloride 94 L (98-107) mmol/L Glucose 315 H (74-99) mg/dL POC Glucose (mg/dL) 271 H (75-99) mg/dL Magnesium 1.5 L (1.6-2.3) mg/dL AST 42 H (14-36) U/L 12/23/20 Range/Units 17:08 RBC (3.80-5.40) m/uL MCV (80.0-100.0) fL Lymphocytes # (1.0-4.8) k/uL Sodium (137-145) mmol/L Chloride (98-107) mmol/L Glucose (74-99) mg/dL POC Glucose (mg/dL) 229 H (75-99) mg/dL Magnesium (1.6-2.3) mg/dL AST (14-36) U/L Thrombosis Risk Factor Assmnt - Choose All That Apply Each Factor Represents 1 point: Age 41-60 years, Obesity (BMI >25) Other Risk Factors: Yes Each Risk Factor Represents 2 Points: Age 61-74 years Thrombosis Risk Factor Assessment Total Risk Factor Score: 4 Thrombosis Risk Factor Assessment Level: Moderate Risk
[2020-12-23] MEDS: Insulin Aspart (For Pump) 100 UNIT/ML VIAL SQ-PUMP SCH (17:48)
[2020-12-23 20:14] LABS: Glucose,Whole Blood 216 mg/dL (75-99)
[2020-12-23] MEDS: MULTIVITAMINS, THERA 1 EACH TAB PO SCH (20:22)
[2020-12-23] MEDS: carvediloL 6.25 MG TAB PO SCH (20:22)
[2020-12-23] MEDS: CHOLECALCIFEROL 25 MCG (1000 IU) TABLET PO SCH (20:22)
[2020-12-23] MEDS: SACUBITRIL/VALSARTAN 49 MG-51 MG TABLET PO SCH (20:22)
[2020-12-23] MEDS: ATORVASTATIN 20 MG TAB PO SCH (20:22)
[2020-12-23] MEDS: PANTOPRAZOLE 40 MG TABLET PO SCH (20:22)
[2020-12-23] MEDS: diphenhydrAMINE 50 MG CAP PO SCH (20:23)
[2020-12-23] MEDS: LORazepam 1 MG TAB PO SCH (20:23)
[2020-12-24] MEDS: LEVOTHYROXINE 100 MCG TAB PO SCH (05:32)
[2020-12-24 07:10] LABS: Glucose,Whole Blood 87 mg/dL (75-99)
[2020-12-24 07:52] LABS: Basophils % (A) 1 %; Eosinophils # (A) 0.1 k/uL (0-0.7); Eosinophils % (A) 1 %; HCT 35.1 % (34.0-46.0); HGB 11.3 gm/dL (11.4-16.0); Lymphocytes # (A) 0.8 k/uL (1.0-4.8); Lymphocytes % (A) 16 %; MCH 34.8 pg (25.0-35.0); MCHC 32.4 g/dL (31.0-37.0); MCV 107.5 fL (80.0-100.0); Macrocytosis Moderate; Mean Platelet Volume 7.8; Monocytes # (A) 0.4 k/uL (0-1.0); Monocytes % (A) 9 %; Neutrophils # (A) 3.6 k/uL (1.3-7.7); Neutrophils % (A) 73 %; Platelet Count 143 k/uL (150-450); RBC 3.26 m/uL (3.80-5.40); RDW 13.8 % (11.5-15.5); WBC 4.9 k/uL (3.8-10.6)
[2020-12-24 08:00] LABS: African American GFR (CKD) >90 (>60 ml/min/1.73 sqM); Anion Gap 4 mmol/L; Blood Urea Nitrogen 14 mg/dL (7-17); Carbon Dioxide 28 mmol/L (22-30); Chloride 100 mmol/L (98-107); Glucose 88 mg/dL (74-99); Magnesium 1.9 mg/dL (1.6-2.3); Non-African American GFR(CKD) >90 (>60 ml/min/1.73 sqM); Potassium 4.5 mmol/L (3.5-5.1); Sodium 132 mmol/L (137-145)
[2020-12-24] MEDS: MONTELUKAST 10 MG TAB PO SCH (08:43)
[2020-12-24] MEDS: buPROPion XL 150 MG TAB.ER.24H PO SCH (08:43)
[2020-12-24] MEDS: ASPIRIN 81 MG PO SCH (08:43)
[2020-12-24] MEDS: SACUBITRIL/VALSARTAN 49 MG-51 MG TABLET PO SCH ×2 (08:43→20:56)
[2020-12-24] MEDS: ENOXAPARIN 40 MG/0.4 ML SYRINGE SQ SCH (08:44)
[2020-12-24] MEDS ORDERED: ASPIRIN 325 MG TAB PO SCH (09:00)
--- NOTE | 2020-12-24 11:11 | XR ---
EXAMINATION TYPE: XR chest 1V DATE OF EXAM: 12/24/2020 COMPARISON: 12/23/2020 HISTORY: CHF TECHNIQUE: Single frontal view of the chest is obtained. FINDINGS: Heart size is enlarged. Left chest wall generator device with stable leads. Multiple overl ritchie leads. Patchy bibasilar airspace opacities are similar to prior exam which may represent the pat ient's chronic interstitial pulmonary fibrosis. Emphysematous changes. No pleural effusion or pneumot horax. IMPRESSION: 1. Stable cardiomegaly. Left infraclavicular generator device with stable leads. 2. Bibasilar airspace opacities are similar to prior exam suggestive of chronic small interstitial p ulmonary fibrosis. Findings are stable.
[2020-12-24 11:50] LABS: Glucose,Whole Blood 88 mg/dL (75-99)
--- NOTE | 2020-12-24 13:16 | P.CRDCN ---
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 Patient follows with Dr. Ambriz in [place]. We have been asked to see the patient in consultation for syncope. Patient seen and examined at bedside, no acute distress. Patient was sent to the emergency room yesterday due to syncopal episode. She states that in the morning she was having breakfast with her he endorses the patient was complaining of being lightheaded and weak. Her was continued concern that something was happening so he brought her to the car to take her to the emergency department, when the patient sat in the car she passed out for about 2 minutes. The . He states that she was now working out for 4-5minutes. Patient denies any chest pain, shortness of breath, palpitations, symptoms of orthopnea or PND. She denies feeling a shock from her AICD. On arrival patient's blood pressure 101/59, heart rate 75, afebrile, maintaining oxygen saturations on room air. Orthostatic vital signs were obtained yesterday and those were negative. DIAGNOSTICS EKG reveals sinus rhythm with right bundle branch block. Left anterior fascicular block. similar to EKG in 10/2020 Interrogation was performed and patient's AICD with no events found. Chest xray stable cardiomegaly, left infraclavicular generator device is stable. Bibasilar airspace opacities are similar to prior exam. Laboratory data: On admission patient's sodium was 128, potassium 4.7, BUN 13, s cally creatinine 0.8, glucose is 3:15, magnesium 1.5, troponin negative 3, proBNP 4250 Current home cardiac medications include Coreg 6.25 mg at night, Entresto 49- 51mg BID, Lasix 20 mg daily, Lipitor 20 mg daily, and aspirin 81 mg daily Echocardiogram 10/2020 revealing ejection fraction 30-35%, mild mitral regurgitation, severe tricuspid regurgitation, and severe pulmonary hypertension with RVSP of 93.64. REVIEW OF SYSTEMS: At the time of my exam: CONSTITUTIONAL: Denies fever or chills. HEENT: Denies blurred vision, vision changes, or eye pain. Denies hemoptysis CARDIOVASCULAR: Denies chest pain. Denies orthopnea. Denies PND. Denies palpitations RESPIRATORY: Denies shortness of breath. GASTROINTESTINAL: Denies abdominal pain. Denies nausea or vomiting. HEMATOLOGIC: Denies bleeding disorders. GENITOURINARY: Denies any blood in urine. SKIN: Denies pruitis. Denies rash. NEURO: Positive lightheadedness, positive weakness PHYSICAL EXAM: VITAL SIGNS: Reviewed. GENERAL: Well-developed in no acute distress. HEENT: Head is normocephalic. Pupils are equal, round. Sclerae anicteric. Mucous membranes of the mouth are moist. Neck supple. No JVD or thyromegaly LUNGS: Respirations even and unlabored. Lungs essentially clear to auscultation bilaterally. HEART: Regular rate and rhythm. S1 and S2 heard. ABDOMEN: Soft. Nondistended. Nontender. EXTREMITIES: Normal range of motion. No clubbing or cyanosis. Peripheral puls es intact. No lower extremity edema NEUROLOGIC: Awake and alert. Oriented x 3. ASSESSMENT: Syncope, unclear etiology, interrogation of device was negative, orthostatic neg ative. Possibly related to dehydration, and hyponatremia Chronic systolic congestive heart failure, ejection fraction 30-35% Coronary artery disease with previous CABG 2001 Ischemic cardiomyopathy Hypertension Hyperlipidemia Pulmonary fibrosis Severe pulmonary hypertension Hyponatremia- improved Hypomagnesima- resolved PLAN: From a cardiology standpoint, we do not believe this is cardiac in origin Recommend Neurology consult for further evaluation Recommend holding Lasix at this time Continue other home cardiac medications She may follow up outpatient with Dr. Ambriz Nurse practitioner note has been reviewed by physician. Signing provider agrees with the documented findings, assessment, and plan of care. Past Medical History Past Medical History: Heart Failure, Diabetes Mellitus, GERD/Reflux, Hyperlipidemia, Hypertension, Myocardial Infarction ([place]), Thyroid Disorder Additional Past Medical History / Comment(s): Fribrosis in september 2020 Last Myocardial Infarction Date:: 2001 History of Any Multi-Drug Resistant Organisms: None Reported Past Surgical History: Section, Coronary Bypass/CABG, Hysterectomy, Tubal Ligation Additional Past Surgical History / Comment(s): cataract surgery, hand surgery Past Anesthesia/Blood Transfusion Reactions: Postoperative Nausea & Vomiting (PONV) Past Psychological History: Anxiety Smoking Status: Never smoker Past Alcohol Use History: Rare Past Drug Use History: None Reported - Past Family History Father Family Medical History: Myocardial Infarction ([place]) Brother(s) Additional Family Medical History / Comment(s): Heart surgery Medications and Allergies Home Medications Medication Instructions Recorded Confirmed Type LORazepam [Ativan] 1 mg PO HS 02/02/14 12/23/20 History Omeprazole [PriLOSEC] 40 mg PO HS 02/02/14 12/23/20 History carvediloL [Coreg] 6.25 mg PO HS 02/02/14 12/23/20 History Aspirin EC [Ecotrin Low Dose] 81 mg PO DAILY 11/12/20 12/23/20 History Atorvastatin [Lipitor] 20 mg PO HS 11/12/20 12/23/20 History Cholecalciferol [Vitamin D3 (25 50 mcg PO HS 11/12/20 12/23/20 History Mcg = 1000 Iu)] Docusate [Colace] 100 mg PO DAILY PRN 11/12/20 12/23/20 History Insulin Aspart (For Pump) [NovoLOG 0.01 unit SQ-PUMP CONTINUOUS 11/12/20 12/23/20 History (For Pump)] Levothyroxine Sodium [Synthroid] 100 mcg PO MOTUWETHFRSA 11/12/20 12/23/20 History Montelukast [Singulair] 10 mg PO DAILY 11/12/20 12/23/20 History Multivit with Calcium,Iron,Min 1 tab PO HS 11/12/20 12/23/20 History [Women's Multivitamin] Sacubitril/Valsartan [Entresto 49 1 tab PO BID 11/12/20 12/23/20 History mg-51 mg Tablet] diphenhydrAMINE HCL [Benadryl] 50 mg PO HS 11/12/20 12/23/20 History Furosemide [Lasix] 40 mg PO DAILY #30 tab 11/14/20 12/23/20 Rx buPROPion HCL [buPROPion HCL Xl] 150 mg PO DAILY 12/23/20 12/23/20 History Allergies Allergy/AdvReac Type Severity Reaction Status Date / Time adhesive Allergy Unknown Verified 12/23/20 18:45 latex Allergy Unknown Verified 12/23/20 18:45 amoxicillin [From Augmentin] AdvReac Nausea & Verified 12/23/20 13:22 Vomiting clarithromycin [From Biaxin] AdvReac Nausea & Verified 12/23/20 13:22 Vomiting clavulanic acid AdvReac Nausea & Verified 12/23/20 13:22 [From Augmentin] Vomiting codeine AdvReac Nausea & Verified 12/23/20 13:22 Vomiting nitrofurantoin AdvReac Nausea & Verified 12/23/20 13:22 [From Macrobid] Vomiting Physical Exam Vitals: Vital Signs Temp Pulse Pulse Pulse Pulse Pulse Resp 12/24/20 00:38 97.6 F 60 14 12/23/20 21:45 12/23/20 18:56 98.0 F 63 15 12/23/20 17:11 97.7 F 63 16 12/23/20 15:48 62 18 12/23/20 14:28 61 18 12/23/20 11:56 77 68 72 12/23/20 11:20 97.6 F 75 20 BP BP BP BP BP Pulse Ox 12/24/20 00:38 103/54 98 12/23/20 21:45 92 L 12/23/20 18:56 129/79 92 L 12/23/20 17:11 146/78 91 L 12/23/20 15:48 102/64 98 12/23/20 14:28 118/67 98 12/23/20 11:56 106/56 101/52 93/54 12/23/20 11:20 101/59 94 L Intake and Output 12/23/20 12/24/20 12/24/20 22:59 06:59 14:59 Intake Total 360 Balance 360 Intake: Oral 360 Other: # Voids 1 1 Weight 87.2 kg Results 12/24/20 06:39 12/24/20 06:39 Cardiac Enzymes 12/23/20 12/23/20 12/23/20 Range/Units 11:55 11:55 15:16 AST 42 H (14-36) U/L Troponin I 0.015 0.027 (0.000-0.034) ng/mL 12/23/20 Range/Units 18:13 AST (14-36) U/L Troponin I 0.030 (0.000-0.034) ng/mL Coagulation 12/23/20 Range/Units 11:55 PT 11.2 (9.0-12.0) sec APTT 26.5 (22.0-30.0) sec CBC 12/23/20 Range/Units 11:55 WBC 7.0 (3.8-10.6) k/uL RBC 3.66 L (3.80-5.40) m/uL Hgb 12.6 (11.4-16.0) gm/dL Hct 38.9 (34.0-46.0) % Plt Count 203 (150-450) k/uL Comprehensive Metabolic Panel 12/23/20 Range/Units 11:55 Sodium 128 L (137-145) mmol/L Potassium 4.7 (3.5-5.1) mmol/L Chloride 94 L (98-107) mmol/L Carbon Dioxide 23 (22-30) mmol/L BUN 13 (7-17) mg/dL Creatinine 0.86 (0.52-1.04) mg/dL Glucose 315 H (74-99) mg/dL Calcium 9.0 (8.4-10.2) mg/dL AST 42 H (14-36) U/L ALT 29 (4-34) U/L Alkaline Phosphatase 90 (38-126) U/L Total Protein 6.7 (6.3-8.2) g/dL Albumin 3.8 (3.5-5.0) g/dL Current Medications Generic Name Dose Route Start Last Admin Trade Name Freq PRN Reason Stop Dose Admin Aspirin 81 mg 12/24/20 09:00 Aspirin 81 Mg PO DAILY KATHLEEN Atorvastatin Calcium 20 mg 12/23/20 21:00 12/23/20 20:22 Atorvastatin 20 Mg Tab PO 20 mg HS KATHLEEN Administration Bupropion HCl 150 mg 12/24/20 09:00 Bupropion Xl 150 Mg Tab.Er.24h PO DAILY KATHLEEN Carvedilol 6.25 mg 12/23/20 21:00 12/23/20 20:22 Carvedilol 6.25 Mg Tab PO 6.25 mg HS KATHLEEN Administration Cholecalciferol 50 mcg 12/23/20 21:00 12/23/20 20:22 Cholecalciferol 25 Mcg (1000 Iu) Tablet PO 50 mcg HS KATHLEEN Administration Diphenhydramine HCl 50 mg 12/23/20 21:00 12/23/20 20:23 Diphenhydramine 50 Mg Cap PO Not Given HS KATHLEEN Docusate Sodium 100 mg 12/23/20 16:02 Docusate 100 Mg Cap PO DAILY PRN Constipation Enoxaparin Sodium 40 mg 12/24/20 09:00 Enoxaparin 40 Mg/0.4 Ml Syringe SQ DAILY KATHLEEN Insulin Aspart 0.01 unit 12/23/20 16:15 12/23/20 17:48 Insulin Aspart (For Pump) 100 Unit/Ml Vial SQ-PUMP 0.01 unit CONTINUOUS KATHLEEN Administration Levothyroxine Sodium 100 mcg 12/24/20 06:30 12/24/20 05:32 Levothyroxine 100 Mcg Tab PO 100 mcg MOTUWETHFRSA KATHLEEN Administration Lorazepam 1 mg 12/23/20 21:00 12/23/20 20:23 Lorazepam 1 Mg Tab PO 1 mg HS KATHLEEN Administration Montelukast Sodium 10 mg 12/24/20 09:00 Montelukast 10 Mg Tab PO DAILY KATHLEEN Multivitamins 1 each 12/23/20 21:00 12/23/20 20:22 Multivitamins, Thera 1 Each Tab PO 1 each HS KATHLEEN Administration Nitroglycerin 0.4 mg 12/23/20 14:00 Nitroglycerin Sl Tabs 0.4 Mg Tab SUBLINGUAL Q5M PRN Chest Pain Pantoprazole Sodium 40 mg 12/23/20 21:00 12/23/20 20:22 Pantoprazole 40 Mg Tablet PO 40 mg HS KATHLEEN Administration Sacubitril/Valsartan 1 each 12/23/20 21:00 12/23/20 20:22 Sacubitril/Valsartan 49 Mg-51 Mg Tablet PO 1 each BID KATHLEEN Administration Intake and Output 12/23/20 12/24/20 12/24/20 22:59 06:59 14:59 Intake Total 360 Balance 360 Intake: Oral 360 Other: # Voids 1 1 Weight 87.2 kg 12/23/20 11:55 12/23/20 11:55
[2020-12-24 13:47] LABS: Chol/HDL Ratio 2.69; LDL Cholesterol,Calculated 50.8 mg/dL (0.0-131.0); VLDL Calculation 10.2 mg/dL (5.00-40.00)
--- NOTE | 2020-12-24 15:02 | P.PN ---
Yogesh powell's 65-year-old female came in with compensative generalized weakness and lightheadedness, syncopal episode. Patient had an EKG which showed normal sinus rhythm with some ST-T wave changes which appear to be chronic. Patient had 3 sets similar syncopal episodes in the past. Patient denied any seizure-like activity tongue biting loss of bowel or bladder incontinence. Patient does have history of congestive heart failure, ejection fraction 30-35%, presently has an AICD in place. Patient is also on Lasix and Entresto, patient does have fine crackles which are chronic and secondary to pulmonary fibrosis patient chest x- ray is consistent with the pulmonary fibrosis I'll obtain a BNP patient today doesn't have any pedal or pedal edema or JVD at this time. Patient is bit hyponatremic at 128. Patient has a [employer] AICD 12/24/2020 Patient's IV fluids at this can you yesterday unfortunately patient continued to receive his IV fluids and patient the oxygen saturations are 93%. Patient the chest x-ray from today morning did not show increased pulmonary edema. Patient's the serum sodium did improve to 132. Cardiology evaluated the patient the recommending to hold off on Lasix. Patient's AICD was interrogated and did not show any significant abnormalities. There is no evidence of seizures but cardiology is recommending neurology consultation to rule out any seizure disorder. Patient's dizziness resolved at this time. Constitutional: Denied any fatigue denied any fever. Cardio vascular: denied any chest pain, palpitations Gastrointestinal denied any nausea vomiting Pulmonary: Denied any shortness of breath cough Neurologic denied any new focal deficits All inpatient medications were reviewed and appropriate changes in these medications as dictated in the interval history and assessment and plan. PHYSICAL EXAMINATION: GENERAL: The patient is alert and oriented x3, not in any acute distress. Well developed, well nourished. HEENT: Pupils are round and equally reacting to light. EOMI. No scleral icterus. No conjunctival pallor. Normocephalic, atraumatic. No pharyngeal erythema. No thyromegaly. CARDIOVASCULAR: S1 and S2 present. No murmurs, rubs, or gallops. PULMONARY: Chest is clear to auscultation, no wheezing or crackles. ABDOMEN: Soft, nontender, nondistended, normoactive bowel sounds. No palpable organomegaly. MUSCULOSKELETAL: No joint swelling or deformity. EXTREMITIES: No cyanosis, clubbing, or pedal edema. NEUROLOGICAL: Gross neurological examination did not reveal any focal deficits. SKIN: No rashes. Assessment and plan -Syncope: Multiple such episodes patient has an AICD was interrogated and no abnormalities were evident and cardiology evaluated the patient will hold off on diuretics temporarily because of concerns of intravascular volume depletion. His dizziness did improve. -Congestive heart failure chronic systolic dysfunction without any acute exacerbation patient appears to be mildly hypovolemic leading to syncopal episode -Hyperthyroidism -Hyperlipidemia -Gastroesophageal reflux disease -Type 2 diabetes mellitus uncontrolled elevated blood sugars and hypoglycemia patient has an insulin pump which she'll continue -Coronary disease with CABG in the past patient has ischemic cardiomyopathy DVT prophylaxis: Lovenox Objective - Vital Signs Vital signs: Vital Signs Temp 97.8 F 12/24/20 07:27 Pulse 72 12/24/20 08:00 Resp 16 12/24/20 08:00 BP 126/69 12/24/20 07:27 Pulse Ox 93 L 12/24/20 07:27 Intake & Output 12/23/20 12/24/20 12/24/20 18:59 06:59 18:59 Intake Total 360 Balance 360 Weight 81.647 kg 87.2 kg Intake: Oral 360 Other: # Voids 1 1 - Labs CBC & Chem 7: 12/24/20 06:39 12/24/20 06:39 Labs: Abnormal Lab Results - Last 24 Hours (Table) 12/23/20 12/23/20 12/24/20 Range/Units 17:08 20:11 06:39 RBC (3.80-5.40) m/uL Hgb (11.4-16.0) gm/dL MCV (80.0-100.0) fL Plt Count (150-450) k/uL Lymphocytes # (1.0-4.8) k/uL Sodium (137-145) mmol/L POC Glucose (mg/dL) 229 H 216 H (75-99) mg/dL Calcium (8.4-10.2) mg/dL HDL Cholesterol 36.0 L (40.0-60.0) mg/dL 12/24/20 12/24/20 Range/Units 06:39 06:39 RBC 3.26 L (3.80-5.40) m/uL Hgb 11.3 L (11.4-16.0) gm/dL MCV 107.5 H (80.0-100.0) fL Plt Count 143 L (150-450) k/uL Lymphocytes # 0.8 L (1.0-4.8) k/uL Sodium 132 L (137-145) mmol/L POC Glucose (mg/dL) (75-99) mg/dL Calcium 8.0 L (8.4-10.2) mg/dL HDL Cholesterol (40.0-60.0) mg/dL
[2020-12-24 16:28] LABS: Glucose,Whole Blood 89 mg/dL (75-99)
[2020-12-24] MEDS: Insulin Aspart (For Pump) 100 UNIT/ML VIAL SQ-PUMP SCH (16:32)
--- NOTE | 2020-12-24 16:47 | EEG ---
ELECTROENCEPHALOGRAM REPORT DATE OF SERVICE: December 24, 2020. PREAMBLE: This is a 65-year-old female with syncope. EEG FINDINGS: This is a 21 channel routine EEG recording in a patient utilizing 10/20 international system with referential and bipolar montages. Background consists of well developed, well regulated, moderate voltage activity in 9-10 hertz alpha. Background is posterior dominant and reactive to eye opening and closing. Photic driving response was seen with various flash frequencies. Hyperventilation was not done. Different stages of sleep were not seen. No focal or generalized epileptiform activity was seen. EKG channel showed no obvious arrhythmias. IMPRESSION: This is a normal awake EEG. No focal, lateralized, or epileptiform activity was seen. MMODL / IJN: [id number] /
[2020-12-24 20:26] LABS: Glucose,Whole Blood 54 mg/dL (75-99)
--- NOTE | 2020-12-24 20:29 | P.CNNES ---
History of Present Illness Consult date: 12/24/20 Requesting physician: Marilyn Frazier Reason for Consult: Syncope History of Present Illness: Patient is a 65-year-old female came to the hospital yesterday at 11:19 AM for syncopal spell. Patient states that she woke up yesterday morning at 7 AM. She was not feeling well, weak and lightheaded. Patient and her went out for breakfast at 9 AM. After doing breakfast, patient and her came back to the car. While sitting in the car, she remembers putting the seatbelt on and then she apparently passed out, and remembers when she was being pulled in the ER. states that she passed out for about 5 minutes. There was no convulsive activity, no tongue bite or loss of control of urine. After this event, patient's drove fastly to the ER and brought her here. Vital signs on arrival blood pressure 101/59, pulse rate 75 temperature 97.6. Her orthostatics checked in the ER showed supine blood pressure 93/54, pulse rate 72, sitting was 106/56 and pulse 77 and standing 101/52 with pulse 68. Negative orthostatics. Chest x-ray showed stable cardiomegaly. Left infraclavicular generator device with stable needs. By basilar airspace opacities are similar to prior exam. Suggestive of chronic small interstitial pulmonary fibrosis. Findings are stable. EKG shows normal sinus rhythm, left axis deviation. Blood test shows normal WBC hemoglobin 11.3, platelet 143. Sodium 132 potassium 4.5, normal renal functions. Cholesterol 97, LDL 50.8, HDL 36.0. Patient has history of type 1 diabetes for 44 years, she has smoked 1-2 pack per day for 20 years, quit in 2001. Patient has history of 3-4 syncopal spells in the last 6 months. Her whole body feels weak, she leans her head to the side and then passes out usually for 1 minute and then comes back. Never had lost control of urine, tongue bite or convulsive activity. Patient has extensive cardiac history, with placement of defibrillator. Patient was seen by cardiology, and her defibrillator was interrogated, and no abnormality was detected. Neurology was consulted to rule out neurological issues. Review of Systems Patient has Raynaud's phenomenon, patient denies any chest pain shortness of breath wheezing or cough. Denies abdominal pain. Patient did throw up in the ER. Denies any neuropathy. Patient denies excessive sweating, infection does not sweat. Past Medical History Past Medical History: Heart Failure, Diabetes Mellitus, GERD/Reflux, Hyperlipidemia, Hypertension, Myocardial Infarction (SD), Thyroid Disorder Additional Past Medical History / Comment(s): Fribrosis in september 2020 Last Myocardial Infarction Date:: 2001 History of Any Multi-Drug Resistant Organisms: None Reported Past Surgical History: Section, Coronary Bypass/CABG, Hysterectomy, Tubal Ligation Additional Past Surgical History / Comment(s): cataract surgery, hand surgery Past Anesthesia/Blood Transfusion Reactions: Postoperative Nausea & Vomiting (PONV) Past Psychological History: Anxiety Smoking Status: Never smoker Past Alcohol Use History: Rare Past Drug Use History: None Reported - Past Family History Father Family Medical History: Myocardial Infarction (SD) Brother(s) Additional Family Medical History / Comment(s): Heart surgery Medications and Allergies Home Medications Medication Instructions Recorded Confirmed Type LORazepam [Ativan] 1 mg PO HS 02/02/14 12/23/20 History Omeprazole [PriLOSEC] 40 mg PO HS 02/02/14 12/23/20 History carvediloL [Coreg] 6.25 mg PO HS 02/02/14 12/23/20 History Aspirin EC [Ecotrin Low Dose] 81 mg PO DAILY 11/12/20 12/23/20 History Atorvastatin [Lipitor] 20 mg PO HS 11/12/20 12/23/20 History Cholecalciferol [Vitamin D3 (25 50 mcg PO HS 11/12/20 12/23/20 History Mcg = 1000 Iu)] Docusate [Colace] 100 mg PO DAILY PRN 11/12/20 12/23/20 History Insulin Aspart (For Pump) [NovoLOG 0.01 unit SQ-PUMP CONTINUOUS 11/12/20 12/23/20 History (For Pump)] Levothyroxine Sodium [Synthroid] 100 mcg PO MOTUWETHFRSA 11/12/20 12/23/20 History Montelukast [Singulair] 10 mg PO DAILY 11/12/20 12/23/20 History Multivit with Calcium,Iron,Min 1 tab PO HS 11/12/20 12/23/20 History [Women's Multivitamin] Sacubitril/Valsartan [Entresto 49 1 tab PO BID 11/12/20 12/23/20 History mg-51 mg Tablet] diphenhydrAMINE HCL [Benadryl] 50 mg PO HS 11/12/20 12/23/20 History Furosemide [Lasix] 40 mg PO DAILY #30 tab 11/14/20 12/23/20 Rx buPROPion HCL [buPROPion HCL Xl] 150 mg PO DAILY 12/23/20 12/23/20 History Allergies Allergy/AdvReac Type Severity Reaction Status Date / Time adhesive Allergy Unknown Verified 12/23/20 18:45 latex Allergy Unknown Verified 12/23/20 18:45 amoxicillin [From Augmentin] AdvReac Nausea & Verified 12/23/20 13:22 Vomiting clarithromycin [From Biaxin] AdvReac Nausea & Verified 12/23/20 13:22 Vomiting clavulanic acid AdvReac Nausea & Verified 12/23/20 13:22 [From Augmentin] Vomiting codeine AdvReac Nausea & Verified 12/23/20 13:22 Vomiting nitrofurantoin AdvReac Nausea & Verified 12/23/20 13:22 [From Macrobid] Vomiting Physical Examination - Vital Signs Vital Signs: Vital Signs Temp Pulse Pulse Pulse Pulse Resp BP 12/24/20 14:00 97.8 F 62 16 126/79 12/24/20 08:00 57 L 77 68 72 16 12/24/20 07:27 97.8 F 57 L 16 126/69 12/24/20 00:38 97.6 F 60 14 103/54 12/23/20 21:45 12/23/20 18:56 98.0 F 63 15 129/79 12/23/20 17:11 97.7 F 63 16 146/78 Pulse Ox 12/24/20 14:00 94 L 12/24/20 08:00 12/24/20 07:27 93 L 12/24/20 00:38 98 12/23/20 21:45 92 L 12/23/20 18:56 92 L 12/23/20 17:11 91 L Intake and Output 12/24/20 12/24/20 12/24/20 06:59 14:59 22:59 Other: # Voids 1 Weight 87.2 kg Patient is an elderly female, very pleasant in no acute distress. Patient is alert awake oriented to time place and person. Speech and language functions are normal. Attention, concentration and fund of knowledge is adequate. On cranial examination, pupils are equal, round and reacting to light, visual nguyễn are full on confrontation, extraocular muscles are intact with no nystagmus. Face is symmetric, tongue protrudes to the midline. Palatal eleva tion and sensation normal, hearing and shoulder shrug normal, facial sensation normal. On muscle strength testing, there is no pronator drift and the strength is normal in arms and legs distally and proximally. Deep tendon reflexes are symmetric, 2 in the upper limbs, 1 at the knees, absent ankles and plantars downgoing. Sensory to touch is equal with no neglect. Cerebellar function showed no ataxia for [id number] testing. No dysdiadochokinesia. Tone and bulk of muscles normal. Gait normal. On general examination, there is no carotid bruit or murmur, S1-S2 audible. Abdomen is soft nontender. Chest is clear. Peripheral pulses are present. No edema. Patient's hands have bluish discoloration in the pulps, which she attributes to Raynauds phenomenon. Results - Laboratory Findings CBC and BMP: 12/24/20 06:39 12/24/20 06:39 Abnormal Lab Findings: Abnormal Labs 12/23/20 12/23/20 12/23/20 11:55 11:55 12:04 RBC 3.66 L Hgb MCV 106.1 H Plt Count Lymphocytes # 0.5 L Sodium 128 L Chloride 94 L Glucose 315 H POC Glucose (mg/dL) 271 H Calcium Magnesium 1.5 L AST 42 H HDL Cholesterol 12/23/20 12/23/20 12/24/20 17:08 20:11 06:39 RBC Hgb MCV Plt Count Lymphocytes # Sodium Chloride Glucose POC Glucose (mg/dL) 229 H 216 H Calcium Magnesium AST HDL Cholesterol 36.0 L 12/24/20 12/24/20 06:39 06:39 RBC 3.26 L Hgb 11.3 L MCV 107.5 H Plt Count 143 L Lymphocytes # 0.8 L Sodium 132 L Chloride Glucose POC Glucose (mg/dL) Calcium 8.0 L Magnesium AST HDL Cholesterol Assessment and Plan Assessment: * Syncopal spell, most likely vasovagal versus cardiac related. However defibrillator interrogation apparently did not reveal any arrhythmia. * Type 1 diabetes for 44 years * X tobacco use * Hypertension * CAD * Hyperlipidemia Plan: * Patient underwent stat EEG, which was normal. No epileptiform activity was seen. * Patient states she had undergone carotid ultrasound at her cardiology office which showed no stenosis. Patient does not have any carotid bruit. * Orthostatics are negative. * Patient was recommended to stay well hydrated, and limit amount of caffeine intake. * No other neurological workup indicated. * Neurologically clear for discharge. Discussed with Dr. Jean Baptiste.
[2020-12-24 20:52] LABS: Glucose,Whole Blood 82 mg/dL (75-99)
[2020-12-24] MEDS: diphenhydrAMINE 50 MG CAP PO SCH (20:55)
[2020-12-24] MEDS: LORazepam 1 MG TAB PO SCH (20:55)
[2020-12-24] MEDS: ATORVASTATIN 20 MG TAB PO SCH (20:55)
[2020-12-24] MEDS: CHOLECALCIFEROL 25 MCG (1000 IU) TABLET PO SCH (20:55)
[2020-12-24] MEDS: PANTOPRAZOLE 40 MG TABLET PO SCH (20:55)
[2020-12-24] MEDS: carvediloL 6.25 MG TAB PO SCH (20:55)
[2020-12-24] MEDS: MULTIVITAMINS, THERA 1 EACH TAB PO SCH (20:56)
[2020-12-25] MEDS: LEVOTHYROXINE 100 MCG TAB PO SCH (05:32)
[2020-12-25 07:08] LABS: Glucose,Whole Blood 101 mg/dL (75-99)
[2020-12-25 07:28] VITALS: BP 125/76; RESP 19; TEMP 98.1
[2020-12-25] MEDS: SACUBITRIL/VALSARTAN 49 MG-51 MG TABLET PO SCH (08:37)
[2020-12-25] MEDS: ENOXAPARIN 40 MG/0.4 ML SYRINGE SQ SCH (08:37)
[2020-12-25] MEDS: buPROPion XL 150 MG TAB.ER.24H PO SCH (08:37)
[2020-12-25] MEDS: MONTELUKAST 10 MG TAB PO SCH (08:38)
[2020-12-25] MEDS: ASPIRIN 81 MG PO SCH (08:38)
[2020-12-25] MEDS ORDERED: polyethylene glycoL 3350 17 GM POWD.PACK PO PRN (09:23)
[2020-12-25] MEDS ORDERED: FUROSEMIDE 10 MG/ML 4 ML VIAL IV SCH (09:30)
--- NOTE | 2020-12-25 11:15 | P.DS ---
Providers Date of admission: 12/23/20 14:00 Attending physician: Haylee Jean Baptiste Consults: 12/23/20 14:00 Consult Physician Urgent Consulting Provider: [facility] Consult Reason/Comments: Syncope Do you want consulting provider notified?: Yes 12/24/20 11:18 Consult Physician Routine Consulting Provider: Brandin Sprague Consult Reason/Comments: Syncope, Lightheaded, do not believe cardiac related Do you want consulting provider notified?: Yes Primary care physician: Kevin Morris [facility] Course: Patient is 65-year-old female came in with compensative generalized weakness and lightheadedness, syncopal episode. Patient had an EKG which showed normal sinus rhythm with some ST-T wave changes which appear to be chronic. Patient had 3 sets similar syncopal episodes in the past. Patient denied any seizure- like activity tongue biting loss of bowel or bladder incontinence. Patient does have history of congestive heart failure, ejection fraction 30-35%, presently has an AICD in place. Patient is also on Lasix and Entresto, patient does have fine crackles which are chronic and secondary to pulmonary fibrosis patient chest x-ray is consistent with the pulmonary fibrosis I'll obtain a BNP patient today doesn't have any pedal or pedal edema or JVD at this time. Patient is bit hyponatremic at 128. Patient has a [employer] AICD 12/24/2020 Patient's IV fluids at this can you yesterday unfortunately patient continued to receive his IV fluids and patient the oxygen saturations are 93%. Patient the chest x-ray from today morning did not show increased pulmonary edema. Patient's the serum sodium did improve to 132. Cardiology evaluated the patient the recommending to hold off on Lasix. Patient's AICD was interrogated and did not show any significant abnormalities. There is no evidence of seizures but cardiology is recommending neurology consultation to rule out any seizure disorder. Patient's dizziness resolved at this time. 01/04/2021 Patient repeat chest x-ray showing increasing pulmonary edema patient will be given 1 dose of IV Lasix. Patient the [place] hypovolemic because of which patient home dose of Lasix will be cut down to 20 mg daily patient need to closely follow up with her education reviewer and her primary care patient for titration of her diuretics. Patient is very high risk for readmission. Patient had multiple syncopes because of possibly hypovolemia and multiple aspiration for heart failure exacerbation. Patient was evaluated by neurology as recommended by cardiology for seizures patient doesn't appear to have any se izures EEG was done yesterday which did not show any significant abnormality. Patient is otherwise clinically doing well will be discharged. Patient although feels bit volume overloaded today which was clinically evident. PHYSICAL EXAMINATION: GENERAL: The patient is alert and oriented x3, not in any acute distress. Well developed, well nourished. HEENT: Pupils are round and equally reacting to light. EOMI. No scleral icterus. No conjunctival pallor. Normocephalic, atraumatic. No pharyngeal erythema. No thyromegaly. CARDIOVASCULAR: S1 and S2 present. No murmurs, rubs, or gallops. PULMONARY: Chest is clear to auscultation, no wheezing or crackles. ABDOMEN: Soft, nontender, nondistended, normoactive bowel sounds. No palpable organomegaly. MUSCULOSKELETAL: No joint swelling or deformity. EXTREMITIES: No cyanosis, clubbing, or pedal edema. NEUROLOGICAL: Gross neurological examination did not reveal any focal deficits. SKIN: No rashes. Assessment and plan -Syncope: Multiple such episodes patient has an AICD was interrogated and no abnormalities were evident and cardiology evaluated the, diuretics were held for last couple days -Congestive heart failure chronic systolic dysfunction with mild acute exacerbation secondary to IV fluids she was receiving, ordered one dose of 40 mg IV Lasix. Patient was admitted with hypovolemia. -Hyperthyroidism -Hyperlipidemia -Gastroesophageal reflux disease -Type 2 diabetes mellitus uncontrolled elevated blood sugars and hypoglycemia patient has an insulin pump which she'll continue -Coronary disease with CABG in the past patient has ischemic cardiomyopathy Plan - Discharge Summary Discharge Rx Participant: Yes New Discharge Prescriptions: New polyethylene glycoL 3350 [Miralax] 17 gm PO DAILY PRN #15 packet PRN Reason: Constipation Continue carvediloL [Coreg] 6.25 mg PO HS Omeprazole [PriLOSEC] 40 mg PO HS LORazepam [Ativan] 1 mg PO HS Montelukast [Singulair] 10 mg PO DAILY diphenhydrAMINE HCL [Benadryl] 50 mg PO HS Docusate [Colace] 100 mg PO DAILY PRN PRN Reason: Constipation Cholecalciferol [Vitamin D3 (25 Mcg = 1000 Iu)] 50 mcg PO HS Sacubitril/Valsartan [Entresto 49 mg-51 mg Tablet] 1 tab PO BID Levothyroxine Sodium [Synthroid] 100 mcg PO MOTUWETHFRSA Atorvastatin [Lipitor] 20 mg PO HS Aspirin EC [Ecotrin Low Dose] 81 mg PO DAILY Multivit with Calcium,Iron,Min [Women's Multivitamin] 1 tab PO HS Insulin Aspart (For Pump) [NovoLOG (For Pump)] 0.01 unit SQ-PUMP CONTINUOUS buPROPion HCL [buPROPion HCL Xl] 150 mg PO DAILY Changed Furosemide [Lasix] 20 mg PO DAILY #30 tab Discharge Medication List LORazepam [Ativan] 1 mg PO HS 02/02/14 [History] Omeprazole [PriLOSEC] 40 mg PO HS 02/02/14 [History] carvediloL [Coreg] 6.25 mg PO HS 02/02/14 [History] Aspirin EC [Ecotrin Low Dose] 81 mg PO DAILY 11/12/20 [History] Atorvastatin [Lipitor] 20 mg PO HS 11/12/20 [History] Cholecalciferol [Vitamin D3 (25 Mcg = 1000 Iu)] 50 mcg PO HS 11/12/20 [History] Docusate [Colace] 100 mg PO DAILY PRN 11/12/20 [History] Insulin Aspart (For Pump) [NovoLOG (For Pump)] 0.01 unit SQ-PUMP CONTINUOUS 11/12/20 [History] Levothyroxine Sodium [Synthroid] 100 mcg PO MOTUWETHFRSA 11/12/20 [History] Montelukast [Singulair] 10 mg PO DAILY 11/12/20 [History] Multivit with Calcium,Iron,Min [Women's Multivitamin] 1 tab PO HS 11/12/20 [History] Sacubitril/Valsartan [Entresto 49 mg-51 mg Tablet] 1 tab PO BID 11/12/20 [His tory] diphenhydrAMINE HCL [Benadryl] 50 mg PO HS 11/12/20 [History] buPROPion HCL [buPROPion HCL Xl] 150 mg PO DAILY 12/23/20 [History] Furosemide [Lasix] 20 mg PO DAILY #30 tab 12/25/20 [Rx] polyethylene glycoL 3350 [Miralax] 17 gm PO DAILY PRN #15 packet 12/25/20 [Rx] Follow up Appointment(s)/Referral(s): Alexandra Brown MD [Primary Care Provider] - 3 Days Discharge Disposition: HOME SELF-CARE
[2020-12-25 11:20] VITALS: PULSE 72
[2020-12-25 11:26] LABS: Glucose,Whole Blood 174 mg/dL (75-99)
[2020-12-25 13:04] LABS: African American GFR (CKD) 106.1 (60.0-200.0); Anion Gap 2.7 mmol/L (4.00-12.00); BUN/Creat Ratio 22.86 Ratio (12.00-20.00); Carbon Dioxide 27.3 mmol/L (21.6-31.8); Non-African American GFR(CKD) 91.6 (60.0-200.0); Potassium 4.9 mmol/L (3.5-5.5)
--- NOTE | 2020-12-25 13:56 | XR ---
EXAMINATION TYPE: XR chest 1V DATE OF EXAM: 12/25/2020 COMPARISON: 12/24/2020 HISTORY: Congestive heart failure TECHNIQUE: Single frontal view of the chest is obtained. FINDINGS: Stable diffuse interstitial opacities. No pneumothorax or pleural effusion. Cardiomegaly with AICD device unchanged. Generalized osteopenia with no acute osseous abnormality. IMPRESSION: Mild pulmonary vascular congestion, cardiomegaly and lung base fibrotic chronic changes, developing infiltrate cannot be entirely excluded.
== END 2020-12-25 13:30 | disposition home or self-care (01) | DRG 640 ==
LOC: EC 11:19 → 4SSUR 14:00
PROVIDERS: ADMIT Internal Medicine; ATTEND Internal Medicine
DX: E87.1 Hypo-osmolality and hyponatremia (principal); I50.23 Acute on chronic systolic (congestive) heart failure; I45.2 Bifascicular block; E86.1 Hypovolemia; R55 Syncope and collapse; E83.42 Hypomagnesemia; E78.5 Hyperlipidemia, unspecified; J84.10 Pulmonary fibrosis, unspecified; I11.0 Hypertensive heart disease with heart failure; I25.10 Atherosclerotic heart disease of native coronary artery without angina pectoris; I25.5 Ischemic cardiomyopathy; E10.65 Type 1 diabetes mellitus with hyperglycemia; I73.00 Raynaud's syndrome without gangrene; K21.9 Gastro-esophageal reflux disease without esophagitis; F41.9 Anxiety disorder, unspecified; I27.20 Pulmonary hypertension, unspecified; E05.90 Thyrotoxicosis, unspecified without thyrotoxic crisis or storm; Z96.41 Presence of insulin pump (external) (internal); Z79.82 Long term (current) use of aspirin; Z79.899 Other long term (current) drug therapy; Z79.890 Hormone replacement therapy; Z79.4 Long term (current) use of insulin; Z88.1 Allergy status to other antibiotic agents; Z88.5 Allergy status to narcotic agent; Z88.8 Allergy status to other drugs, medicaments and biological substances; I25.2 Old myocardial infarction; Z82.49 Family history of ischemic heart disease and other diseases of the circulatory system; Z95.810 Presence of automatic (implantable) cardiac defibrillator; Z95.1 Presence of aortocoronary bypass graft; Z90.710 Acquired absence of both cervix and uterus; Z87.891 Personal history of nicotine dependence
CPT/HCPCS: 36415; 71045; 71046; 80048; 80053; 80061; 83735; 83880; 84484; 85025; 85610; 85730; 93005; 95816; 96361; 96365; 96375; 99285

== ENCOUNTER → 2021-01-11 | Outpatient (CLI) | payer MEDICARE ==
--- NOTE | 2021-01-12 08:02 | MM ---
Reason for exam: additional evaluation requested from abnormal screening. Last mammogram was performed 1 month ago. History: Patient is postmenopausal. Benign core biopsy of the left breast, 2000. Physical Findings: Nurse did not find any significant physical abnormalities on exam. MG 3D Work Up W/Cad LT Spot compression CC, spot compression MLO, CCRM, and LM view(s) were taken of the left breast. Prior study comparison: December 15, 2020, bilateral MG 3d screening mammo w/cad. May 09, 2019, bilateral MG 3d screening mammo w/cad. The breast tissue is heterogeneously dense. This may lower the sensitivity of mammography. Left biopsy clip. Previously seen asymmetry no longer present and presumably represented overlapping tissue. These results were verbally communicated with the patient and result sheet given to the patient on 01/11/21. ASSESSMENT: Benign, BI-RAD 2 RECOMMENDATION: Return to routine screening mammogram schedule for both breasts.
== END | disposition home or self-care (01) ==
LOC: RADMAMWWP 14:43
PROVIDERS: ATTEND Internal Medicine
DX: R92.8 Other abnormal and inconclusive findings on diagnostic imaging of breast (principal)
CPT/HCPCS: 77065; G0279; 77061

== ENCOUNTER 2021-01-13 11:13 | Inpatient (IN) | payer MEDICARE ==
[2021-01-13] MEDS ORDERED: SODIUM CHLORIDE 0.9% 500 ML 500 ML IV STA (11:34)
--- NOTE | 2021-01-13 12:13 | XR ---
EXAMINATION TYPE: XR chest 2V DATE OF EXAM: 01/13/2021 COMPARISON: 12/25/2020 HISTORY: nausea, vomiting, diarrhea, DEANDRA TECHNIQUE: Frontal and lateral views of the chest are obtained. FINDINGS: Patchy areas of airspace disease bilaterally appear relatively similar to the prior examination. Enlargement of the cardiac silhouette is unchanged with AICD leads. IMPRESSION: No significant change since the prior exam.
[2021-01-13 12:14] LABS: Calcium 8.9 mg/dL (8.4-10.2); Total Bilirubin 1.9 mg/dL (0.2-1.3)
[2021-01-13 12:16] LABS: Albumin 3.8 g/dL (3.5-5.0); Potassium 5.5 mmol/L (3.5-5.1); Total Protein 6.7 g/dL (6.3-8.2)
--- NOTE | 2021-01-13 12:45 | ED ---
General Adult HPI - General Chief complaint: Nausea/Vomiting/Diarrhea Stated complaint: Vomiting/Diarrhea/Dehydration Time Seen by Provider: 01/13/21 11:30 Source: patient, RN notes reviewed, old records reviewed Mode of arrival: ambulatory Limitations: no limitations - History of Present Illness Initial comments: 65-year-old female presenting with nausea vomiting and diarrhea. She's had some recurrent episodes of diarrhea and nausea vomiting over the past several months. She had checked her blood pressure at home and this was noted to be low. She has no fever. No cough. No chest pain or abdominal pain. She does have some mild dyspnea, history of both CHF and pulmonary fibrosis. - Related Data Home Medications Medication Instructions Recorded Confirmed LORazepam [Ativan] 1 mg PO HS 02/02/14 01/13/21 Omeprazole [PriLOSEC] 40 mg PO HS 02/02/14 01/13/21 Aspirin EC [Ecotrin Low Dose] 81 mg PO DAILY 11/12/20 01/13/21 Atorvastatin [Lipitor] 20 mg PO HS 11/12/20 01/13/21 Cholecalciferol [Vitamin D3 (25 50 mcg PO HS 11/12/20 01/13/21 Mcg = 1000 Iu)] Docusate [Colace] 100 mg PO DAILY PRN 11/12/20 01/13/21 Insulin Aspart (For Pump) [NovoLOG 0.01 unit SQ-PUMP CONTINUOUS 11/12/20 01/13/21 (For Pump)] Levothyroxine Sodium [Synthroid] 100 mcg PO MOTUWETHFRSA 11/12/20 01/13/21 Montelukast [Singulair] 10 mg PO DAILY 11/12/20 01/13/21 Multivit with Calcium,Iron,Min 1 tab PO HS 11/12/20 01/13/21 [Women's Multivitamin] Sacubitril/Valsartan [Entresto 49 1 tab PO BID 11/12/20 01/13/21 mg-51 mg Tablet] diphenhydrAMINE HCL [Benadryl] 50 mg PO HS 11/12/20 01/13/21 buPROPion HCL [buPROPion HCL Xl] 150 mg PO DAILY 12/23/20 01/13/21 Carvedilol [Coreg] 3.125 mg PO BID 01/13/21 01/13/21 Cyclobenzaprine [Flexeril] 10 mg PO BID 01/13/21 01/13/21 Furosemide [Lasix] 20 mg PO DAILY 01/13/21 01/13/21 Metoclopramide HCl [Reglan] 5 mg PO TID PRN 01/13/21 01/13/21 Previous Rx's Medication Instructions Recorded polyethylene glycoL 3350 [Miralax] 17 gm PO DAILY PRN #15 packet 12/25/20 Allergies Allergy/AdvReac Type Severity Reaction Status Date / Time adhesive Allergy Unknown Verified 01/13/21 11:57 latex Allergy Unknown Verified 01/13/21 11:57 amoxicillin [From Augmentin] AdvReac Nausea & Verified 01/13/21 11:57 Vomiting clarithromycin [From Biaxin] AdvReac Nausea & Verified 01/13/21 11:57 Vomiting clavulanic acid AdvReac Nausea & Verified 01/13/21 11:57 [From Augmentin] Vomiting codeine AdvReac Nausea & Verified 01/13/21 11:57 Vomiting nitrofurantoin AdvReac Nausea & Verified 01/13/21 11:57 [From Macrobid] Vomiting Review of Systems ROS Statement: Those systems with pertinent positive or pertinent negative responses have been documented in the HPI. ROS Other: All systems not noted in ROS Statement are negative. Past Medical History Past Medical History: Heart Failure, Diabetes Mellitus, GERD/Reflux, Hyperlipidemia, Hypertension, Myocardial Infarction ([place]), Thyroid Disorder Additional Past Medical History / Comment(s): Fribrosis in september 2020 Last Myocardial Infarction Date:: 2001 History of Any Multi-Drug Resistant Organisms: None Reported Past Surgical History: Section, Coronary Bypass/CABG, Hysterectomy, Tub al Ligation Additional Past Surgical History / Comment(s): cataract surgery, hand surgery Past Anesthesia/Blood Transfusion Reactions: Postoperative Nausea & Vomiting (PONV) Past Psychological History: Anxiety Smoking Status: Never smoker Past Alcohol Use History: Rare Past Drug Use History: None Reported - Past Family History Father Family Medical History: Myocardial Infarction ([place]) Brother(s) Additional Family Medical History / Comment(s): Heart surgery General Exam Limitations: no limitations General appearance: alert, in no apparent distress Head exam: Present: atraumatic, normocephalic Eye exam: Present: normal appearance, PERRL ENT exam: Present: mucous membranes dry Neck exam: Present: normal inspection. Absent: tenderness, meningismus Respiratory exam: Present: rales (Worse on the left). Absent: respiratory distress, wheezes Cardiovascular Exam: Present: regular rate, normal rhythm GI/Abdominal exam: Present: soft. Absent: distended, tenderness, guarding Extremities exam: Present: pedal edema Neurological exam: Present: alert, oriented X3, CN II-XII intact. Absent: motor sensory deficit Psychiatric exam: Present: normal affect, normal mood Skin exam: Present: warm, dry, intact. Absent: cyanosis, diaphoretic Course Vital Signs 01/13/21 01/13/21 01/13/21 11:15 12:25 13:40 Temperature 97.5 F L Pulse Rate 82 78 64 Respiratory 18 18 16 Rate Blood Pressure 79/49 93/54 130/73 O2 Sat by Pulse 96 94 L 100 Oximetry EKG Findings - EKG Comments: EKG Findings:: Unusual P axis possible ectopic atrial rhythm, right bundle branch block, rate of 87, ND interval 152, QRS duration 138, QTC [address] segment elevation. Medical Decision Making - Medical Decision Making 65-year-old female history of CHF, CAD. She had presented with an episode of diarrhea followed by vomiting. There was no abdominal pain or tenderness. No chest pain. She has had some dyspnea however most of this is chronic. She has a history of CHF and pulmonary fibrosis. She had held her Lasix over the last 2 days. She was noted to have a blood pressure of 70 systolic upon arrival. I did initially workup this patient for both CHF as well as dehydration secondary to multiple episodes of vomiting and diarrhea as well as hypotension. She has a patchy airspace disease with cardiomegaly on chest x-ray. Her BMP is significantly elevated and her troponin is minimally elevated at 0.043. She does have rails which may be accommodation of both CHF and palmar fibrosis. She is given initially 500 mL followed by a second 500 mL of normal saline total of 1 L given with normalization of blood pressure. She does not have any increased respiratory distress or oxygen requirements. Given the recurrent episodes of this vomiting and diarrhea she will be admitted with gastroenterology on consult. Regarding her fluid status and troponin elevation cardiology will be consulted. I did discuss case with Dr. Renee who will admit. - Lab Data Result diagrams: 01/13/21 11:47 01/13/21 11:47 Lab Results 01/13/21 01/13/21 01/13/21 Range/Units 11:47 11:47 11:47 WBC 8.5 (3.8-10.6) k/uL RBC 3.87 (3.80-5.40) m/uL Hgb 13.5 (11.4-16.0) gm/dL Hct 43.3 (34.0-46.0) % MCV 112.1 H (80.0-100.0) fL MCH 35.0 (25.0-35.0) pg MCHC 31.2 (31.0-37.0) g/dL RDW 13.8 (11.5-15.5) % Plt Count 181 (150-450) k/uL MPV 8.3 Neutrophils % 88 % Lymphocytes % 5 % Monocytes % 5 % Eosinophils % 0 % Basophils % 1 % Neutrophils # 7.5 (1.3-7.7) k/uL Lymphocytes # 0.4 L (1.0-4.8) k/uL Monocytes # 0.4 (0-1.0) k/uL Eosinophils # 0.0 (0-0.7) k/uL Basophils # 0.1 (0-0.2) k/uL Manual Slide Review Performed Hypochromasia Slight Poikilocytosis (manual Present Macrocytosis Marked A PT (9.0-12.0) sec INR (<1.2) APTT (22.0-30.0) sec Sodium 129 L (137-145) mmol/L Potassium 5.5 H (3.5-5.1) mmol/L Chloride 98 (98-107) mmol/L Carbon Dioxide 20 L (22-30) mmol/L Anion Gap 11 mmol/L BUN 18 H (7-17) mg/dL Creatinine 0.91 (0.52-1.04) mg/dL Est GFR (CKD-EPI)AfAm 77 (>60 ml/min/1.73 sqM) Est GFR (CKD-EPI)NonAf 67 (>60 ml/min/1.73 sqM) Glucose 280 H (74-99) mg/dL Calcium 8.9 (8.4-10.2) mg/dL Total Bilirubin 1.9 H (0.2-1.3) mg/dL AST 55 H (14-36) U/L ALT 26 (4-34) U/L Alkaline Phosphatase 85 (38-126) U/L Troponin I 0.043 H* (0.000-0.034) ng/mL NT-Pro-B Natriuret Pep pg/mL Total Protein 6.7 (6.3-8.2) g/dL Albumin 3.8 (3.5-5.0) g/dL 01/13/21 01/13/21 Range/Units 11:47 13:52 WBC (3.8-10.6) k/uL RBC (3.80-5.40) m/uL Hgb (11.4-16.0) gm/dL Hct (34.0-46.0) % MCV (80.0-100.0) fL MCH (25.0-35.0) pg MCHC (31.0-37.0) g/dL RDW (11.5-15.5) % Plt Count (150-450) k/uL MPV Neutrophils % % Lymphocytes % % Monocytes % % Eosinophils % % Basophils % % Neutrophils # (1.3-7.7) k/uL Lymphocytes # (1.0-4.8) k/uL Monocytes # (0-1.0) k/uL Eosinophils # (0-0.7) k/uL Basophils # (0-0.2) k/uL Manual Slide Review Hypochromasia Poikilocytosis (manual Macrocytosis PT 11.9 (9.0-12.0) sec INR 1.1 (<1.2) APTT 23.8 (22.0-30.0) sec Sodium (137-145) mmol/L Potassium (3.5-5.1) mmol/L Chloride (98-107) mmol/L Carbon Dioxide (22-30) mmol/L Anion Gap mmol/L BUN (7-17) mg/dL Creatinine (0.52-1.04) mg/dL Est GFR (CKD-EPI)AfAm (>60 ml/min/1.73 sqM) Est GFR (CKD-EPI)NonAf (>60 ml/min/1.73 sqM) Glucose (74-99) mg/dL Calcium (8.4-10.2) mg/dL Total Bilirubin (0.2-1.3) mg/dL AST (14-36) U/L ALT (4-34) U/L Alkaline Phosphatase (38-126) U/L Troponin I (0.000-0.034) ng/mL NT-Pro-B Natriuret Pep 5950 pg/mL Total Protein (6.3-8.2) g/dL Albumin (3.5-5.0) g/dL Disposition Clinical Impression: CHF (congestive heart failure), Hyponatremia, Nausea vomiting and diarrhea, Elevated troponin I level Disposition: ADMITTED IP TO THIS HOSP Condition: Stable Is patient prescribed a controlled substance at d/c from ED?: No Referrals: Alexandra Brown MD [Primary Care Provider] - 1-2 days Decision to Admit Reason: Admit from EC Decision Date: 01/13/21 Decision Time: 14:40
[2021-01-13] MEDS ORDERED: SODIUM CHLORIDE 0.9% 500 ML 500 ML IV ONE (12:52)
[2021-01-13 13:02] LABS: Basophils # (A) 0.1 k/uL (0-0.2); Basophils % (A) 1 %; Eosinophils % (A) 0 %; HCT 43.3 % (34.0-46.0); HGB 13.5 gm/dL (11.4-16.0); Hypochromasia Slight; Lymphocytes # (A) 0.4 k/uL (1.0-4.8); Lymphocytes % (A) 5 %; MCHC 31.2 g/dL (31.0-37.0); MCV 112.1 fL (80.0-100.0); Macrocytosis Marked; Mean Platelet Volume 8.3; Monocytes # (A) 0.4 k/uL (0-1.0); Monocytes % (A) 5 %; Neutrophils # (A) 7.5 k/uL (1.3-7.7); Neutrophils % (A) 88 %; Platelet Count 181 k/uL (150-450); RBC 3.87 m/uL (3.80-5.40); RDW 13.8 % (11.5-15.5); WBC 8.5 k/uL (3.8-10.6)
[2021-01-13 13:20] LABS: INR 1.1 (<1.2); Partial Thromboplastin Time 23.8 sec (22.0-30.0); Prothrombin Time 11.9 sec (9.0-12.0)
[2021-01-13 14:20] LABS: Poikilocytosis (M) Present
[2021-01-13] MEDS ORDERED: METOCLOPRAMIDE 5 MG TAB PO PRN (14:32)
[2021-01-13] MEDS ORDERED: polyethylene glycoL 3350 17 GM POWD.PACK PO PRN (14:32)
[2021-01-13] MEDS ORDERED: DOCUSATE 100 MG CAP PO PRN (14:32)
[2021-01-13] MEDS ORDERED: ACETAMINOPHEN TAB 325 MG TAB PO PRN (14:34)
[2021-01-13] MEDS ORDERED: NALOXONE 0.4 MG/ML 1 ML VIAL IV PRN (14:34)
[2021-01-13] MEDS ORDERED: PANTOPRAZOLE 40 MG/10 ML VIAL IVP STA (14:36)
[2021-01-13] MEDS ORDERED: Insulin Aspart (For Pump) 100 UNIT/ML VIAL SQ-PUMP SCH (14:45)
--- NOTE | 2021-01-13 18:29 | P.HPIM ---
History of Present Illness this is a pleasant 65 years old female with past medical history of diabetes mellitus, hypertension, hyperlipidemia, GERD, hypothyroidism. Also she has history of coronary artery disease status post CABG at age 45. She follows up with lance crewmember Dr. Briggs for she is on insulin pump. Her protective signal installer is Dr. Moreno. Her pit recorder is Dr. Le and she is on home oxygen of 2 L Presents with hypotension episode. This morning patient had about 4-5 bouts of diarrhea, her give her gatorade she vomited it immediately. She felt some stomach upset and undressed but no abdominal pain or chest pain. No fever. No urinary complaints or dysuria. She felt lightheadedness and dizzy Her blood pressure when checked by her was 51/35, so patient does not look her blood pressure medication in the morning and came to emergency room She denies smoking, alcohol or illicit drugs On admission she was hypotensive 79/49, her blood pressure improved to 1:30/73. Her oxygen saturation is 100% on room air and patient is afebrile Labs show an unremarkable CBC, her sodium is low at 129, potassium was high at 5.5 but sample was hemolyzed Creatinine at 0.9, GFR is 67 Troponin is elevated at 0.04 Bilirubin is 1.9, AST slightly up at 55, ALT is normal at 26 Echocardiogram 2 months ago on 11/12/20 showing ejection fraction of 30-35% with severe tricuspid regurgitation and severe pulmonary hypertension EKG showing ectopic atrial rhythm at 87 with right bundle branch block and QTC is 507 Chest x-ray: No acute changes In the emergency room she received 1 L of normal saline Review of Systems CONSTITUTIONAL: No fever, no malaise, no fatigue. HEENT: No recent visual problems or hearing problems. Denied any sore throat. CARDIOVASCULAR: No orthopnea, PND, no palpitations, no syncope. PULMONARY: No chest wall tenderness, no hemoptysis. GASTROINTESTINAL: no abdominal pain. Normoactive bowel sounds. NEUROLOGICAL: No headaches, no weakness, no numbness. HEMATOLOGICAL: Denies any bleeding or petechiae. GENITOURINARY: Denies any burning micturition, frequency, or urgency. MUSCULOSKELETAL/RHEUMATOLOGICAL: Denies any joint pain, swelling, or any muscle pain. ENDOCRINE: Denies any polyuria or polydipsia. Past Medical History Past Medical History: Heart Failure, Diabetes Mellitus, GERD/Reflux, Hyperlipidemia, Hypertension, Myocardial Infarction ([place]), Thyroid Disorder Additional Past Medical History / Comment(s): Fribrosis in september 2020 Last Myocardial Infarction Date:: 2001 History of Any Multi-Drug Resistant Organisms: None Reported Past Surgical History: Section, Coronary Bypass/CABG, Hysterectomy, Tubal Ligation Additional Past Surgical History / Comment(s): cataract surgery, hand surgery Past Anesthesia/Blood Transfusion Reactions: Postoperative Nausea & Vomiting (PONV) Past Psychological History: Anxiety Smoking Status: Never smoker Past Alcohol Use History: Rare Past Drug Use History: None Reported - Past Family History Father Family Medical History: Myocardial Infarction ([place]) Brother(s) Additional Family Medical History / Comment(s): Heart surgery Medications and Allergies Home Medications Medication Instructions Recorded Confirmed Type LORazepam [Ativan] 1 mg PO HS 02/02/14 01/13/21 History Omeprazole [PriLOSEC] 40 mg PO HS 02/02/14 01/13/21 History Aspirin EC [Ecotrin Low Dose] 81 mg PO DAILY 11/12/20 01/13/21 History Atorvastatin [Lipitor] 20 mg PO HS 11/12/20 01/13/21 History Cholecalciferol [Vitamin D3 (25 50 mcg PO HS 11/12/20 01/13/21 History Mcg = 1000 Iu)] Docusate [Colace] 100 mg PO DAILY PRN 11/12/20 01/13/21 History Insulin Aspart (For Pump) [NovoLOG 0.01 unit SQ-PUMP CONTINUOUS 11/12/20 01/13/21 History (For Pump)] Levothyroxine Sodium [Synthroid] 100 mcg PO MOTUWETHFRSA 11/12/20 01/13/21 History Montelukast [Singulair] 10 mg PO DAILY 11/12/20 01/13/21 History Multivit with Calcium,Iron,Min 1 tab PO HS 11/12/20 01/13/21 History [Women's Multivitamin] Sacubitril/Valsartan [Entresto 49 1 tab PO BID 11/12/20 01/13/21 History mg-51 mg Tablet] diphenhydrAMINE HCL [Benadryl] 50 mg PO HS 11/12/20 01/13/21 History buPROPion HCL [buPROPion HCL Xl] 150 mg PO DAILY 12/23/20 01/13/21 History polyethylene glycoL 3350 [Miralax] 17 gm PO DAILY PRN #15 packet 12/25/20 01/13/21 Rx Carvedilol [Coreg] 3.125 mg PO BID 01/13/21 01/13/21 History Cyclobenzaprine [Flexeril] 10 mg PO BID 01/13/21 01/13/21 History Furosemide [Lasix] 20 mg PO DAILY 01/13/21 01/13/21 History Metoclopramide HCl [Reglan] 5 mg PO TID PRN 01/13/21 01/13/21 History Allergies Allergy/AdvReac Type Severity Reaction Status Date / Time adhesive Allergy Unknown Verified 01/13/21 11:57 latex Allergy Unknown Verified 01/13/21 11:57 amoxicillin [From Augmentin] AdvReac Nausea & Verified 01/13/21 11:57 Vomiting clarithromycin [From Biaxin] AdvReac Nausea & Verified 01/13/21 11:57 Vomiting clavulanic acid AdvReac Nausea & Verified 01/13/21 11:57 [From Augmentin] Vomiting codeine AdvReac Nausea & Verified 01/13/21 11:57 Vomiting nitrofurantoin AdvReac Nausea & Verified 01/13/21 11:57 [From Macrobid] Vomiting Physical Exam Vitals: Vital Signs Temp Pulse Resp BP Pulse Ox 01/13/21 13:40 64 16 130/73 100 01/13/21 12:25 78 18 93/54 94 L 01/13/21 11:15 97.5 F L 82 18 79/49 96 Intake and Output 01/12/21 01/13/21 01/13/21 22:59 06:59 14:59 Other: Weight 84.368 kg GENERAL: The patient is alert and oriented x3, not in any acute distress. Well developed, well nourished. HEENT: Pupils are round and equally reacting to light. EOMI. No scleral icterus. No conjunctival pallor. Normocephalic, atraumatic. No pharyngeal erythema. No thyromegaly. CARDIOVASCULAR: S1 and S2 present. No murmurs, rubs, or gallops. PULMONARY: Chest is clear to auscultation, no wheezing or crackles. ABDOMEN: Soft, nontender, nondistended, normoactive bowel sounds. No palpable organomegaly. MUSCULOSKELETAL: No joint swelling or deformity. EXTREMITIES: No cyanosis, clubbing, or pedal edema. NEUROLOGICAL: Gross neurological examination did not reveal any focal deficits. SKIN: No rashes. No petechiae Results CBC & Chem 7: 01/13/21 11:47 01/13/21 11:47 Labs: Abnormal Lab Results - Last 24 Hours (Table) 01/13/21 01/13/21 01/13/21 Range/Units 11:47 11:47 11:47 MCV 112.1 H (80.0-100.0) fL Lymphocytes # 0.4 L (1.0-4.8) k/uL Macrocytosis Marked A Sodium 129 L (137-145) mmol/L Potassium 5.5 H (3.5-5.1) mmol/L Carbon Dioxide 20 L (22-30) mmol/L BUN 18 H (7-17) mg/dL Glucose 280 H (74-99) mg/dL Total Bilirubin 1.9 H (0.2-1.3) mg/dL AST 55 H (14-36) U/L Troponin I 0.043 H* (0.000-0.034) ng/mL Assessment and Plan Assessment: Elevated troponin Mild hypovolemic hyponatremia at 129 could be related to hypotension 1 episode of vomiting with one-day diarrhea, suspicious for acute gastr oenteritis versus food poisoning Chronic congestive heart failure, ejection fraction 30-35% Possible chronic kidney disease stage III diabetes mellitus with hyperglycemia Hypertension, patient was hypotensive on admission Hyperlipidemia Hypothyroidism History of GERD Plan: This is a pleasant 65 years old female who presents with an episode of hypotension and slightly elevated troponin. Hold Coreg for now, check serial troponin. Cardiology consult Give 1 dose of aspirin 325 mg and then continue with 81 mg Continue Lasix Continue insulin pump Labs and medication were reviewed.. Continue same treatment. Continue with symptomatic treatment. Resume home medication. Monitor lytes and vitals. DVT and GI prophylaxis. Further recommendations depends on the clinical course of the patient DVT prophylaxis: Subcutaneous heparin GI Prophylaxis: Pepcid PT/OT: Pending Prognosis is guarded
[2021-01-13] MEDS: carvediloL 3.125 MG TAB PO SCH (18:42)
[2021-01-13] MEDS: INSULIN PUMP MEAL BOLUS 1 UNIT MISC MISCELLANE SCH (20:11)
[2021-01-13 20:12] LABS: Glucose,Whole Blood 242 mg/dL (75-99)
[2021-01-13] MEDS: HEPARIN SODIUM,PORCINE/PF 5,000 UNIT/0.5 ML SYRINGE SQ SCH (20:55)
[2021-01-13] MEDS: FAMOTIDINE 20 MG/2 ML VIAL IV SCH (20:55)
[2021-01-13] MEDS: CYCLOBENZAPRINE 10 MG TAB PO SCH (20:55)
[2021-01-13] MEDS ORDERED: ATORVASTATIN 20 MG TAB PO SCH (21:00)
[2021-01-13] MEDS: LORazepam 1 MG TAB PO PRN (21:49)
[2021-01-14] MEDS ORDERED: INSULIN ASPART (NovoLOG) 100 UNIT/ML VIAL SQ PRN (04:05)
[2021-01-14] MEDS ORDERED: INSPUCOR MISCELLANE PRN (04:05)
[2021-01-14] MEDS ORDERED: INSULIN PUMP BASAL RATES 1 EACH MISC MISCELLANE PRN (04:05)
[2021-01-14 06:05] LABS: Glucose,Whole Blood 154 mg/dL (75-99)
[2021-01-14] MEDS: LEVOTHYROXINE 100 MCG TAB PO SCH (06:36)
[2021-01-14] MEDS: carvediloL 3.125 MG TAB PO SCH ×2 (06:36→17:17)
[2021-01-14 08:26] LABS: Basophils % (A) 0 %; Eosinophils # (A) 0.1 k/uL (0-0.7); Eosinophils % (A) 1 %; HCT 37.2 % (34.0-46.0); HGB 11.8 gm/dL (11.4-16.0); Lymphocytes # (A) 0.8 k/uL (1.0-4.8); Lymphocytes % (A) 13 %; MCH 34.6 pg (25.0-35.0); MCHC 31.8 g/dL (31.0-37.0); MCV 108.9 fL (80.0-100.0); Macrocytosis Marked; Mean Platelet Volume 8.4; Monocytes # (A) 0.5 k/uL (0-1.0); Monocytes % (A) 7 %; Neutrophils # (A) 4.9 k/uL (1.3-7.7); Neutrophils % (A) 76 %; Platelet Count 144 k/uL (150-450); RBC 3.42 m/uL (3.80-5.40); RDW 13.4 % (11.5-15.5); WBC 6.4 k/uL (3.8-10.6)
[2021-01-14 08:42] LABS: ALT 24 U/L (4-34); AST 46 U/L (14-36); African American GFR (CKD) >90 (>60 ml/min/1.73 sqM); Albumin 3.2 g/dL (3.5-5.0); Alkaline Phosphatase 72 U/L (38-126); Anion Gap 6 mmol/L; Blood Urea Nitrogen 17 mg/dL (7-17); Calcium 8.5 mg/dL (8.4-10.2); Carbon Dioxide 27 mmol/L (22-30); Chloride 97 mmol/L (98-107); Glucose 147 mg/dL (74-99); Magnesium 1.7 mg/dL (1.6-2.3); Non-African American GFR(CKD) >90 (>60 ml/min/1.73 sqM); Potassium 4.2 mmol/L (3.5-5.1); Sodium 130 mmol/L (137-145); Total Bilirubin 0.8 mg/dL (0.2-1.3)
[2021-01-14] MEDS: INSULIN PUMP MEAL BOLUS 1 UNIT MISC MISCELLANE SCH ×3 (09:07→18:15)
[2021-01-14] MEDS: HEPARIN SODIUM,PORCINE/PF 5,000 UNIT/0.5 ML SYRINGE SQ SCH ×2 (09:17→22:24)
[2021-01-14] MEDS: CYCLOBENZAPRINE 10 MG TAB PO SCH ×2 (09:17→22:23)
[2021-01-14] MEDS: MONTELUKAST 10 MG TAB PO SCH (09:17)
[2021-01-14] MEDS: ASPIRIN 81 MG PO SCH (09:18)
[2021-01-14] MEDS: FUROSEMIDE 20 MG TAB PO SCH (09:18)
[2021-01-14] MEDS: buPROPion XL 150 MG TAB.ER.24H PO SCH (09:18)
[2021-01-14] MEDS: FAMOTIDINE 20 MG/2 ML VIAL IV SCH ×2 (09:18→22:23)
--- NOTE | 2021-01-14 10:31 | ECHOF ---
Referral Reason:high troponin MEASUREMENTS -------- HEIGHT: 167.6 cm WEIGHT: 84.4 kg BP: 133/87 RVIDd: 4.2 cm (< 3.3) IVSd: 1.3 cm (0.6 - 1.1) LVIDd: 4.8 cm (3.9 - 5.3) LVPWd: 1.2 cm (0.6 - 1.1) IVSs: 1.6 cm LVIDs: 3.5 cm LVPWs: 1.8 cm LA Diam: 3.8 cm (2.7 - 3.8) LAESV Index (A-L): 20.26 ml/m Ao Diam: 2.9 cm (2.0 - 3.7) AV Cusp: 1.7 cm (1.5 - 2.6) MV EXCURSION: 15.293 mm (> 18.000) MV EF SLOPE: 24 mm/s (70 - 150) EPSS: 1.2 cm MV E Bryson: 0.58 m/s MV DecT: 347 ms MV A Bryson: 0.85 m/s MV E/A Ratio: 0.68 RAP: 5.00 mmHg RVSP: 65.59 mmHg TAPSE: 12.15 mm FINDINGS -------- AICD This was a technically adequate study. The left ventricular size is normal. There is mild concentric left ventricular hypertrophy. Overa ll left ventricular systolic function is severely impaired with, an EF between 25 - 30 %. The right ventricle is severely enlarged. Normal LA size by volume 22+/-6 ml/m2. The right atrium is normal in size. Interatrial and interventricular septum intact. There is mild aortic valve sclerosis. Mild mitral annular calcification present. There is trace to mild mitral regurgitation. Severe tricuspid regurgitation present. There is severe pulmonary hypertension. The right ventric ular systolic pressure, as measured by Doppler, is 65.59mmHg. Trace/mild (physiologic) pulmonic regurgitation. The aortic root size is normal. Normal inferior vena cava with normal inspiratory collapse consistent with estimated right atrial pre ssure of 5 mmHg. There is no pericardial effusion. CONCLUSIONS -------- 1. The left ventricular size is normal. 2. There is mild concentric left ventricular hypertrophy. 3. Overall left ventricular systolic function is severely impaired with, an EF between 25 - 30 %. 4. The right ventricle is severely enlarged. 5. Normal LA size by volume 22+/-6 ml/m2. 6. There is mild aortic valve sclerosis. 7. Mild mitral annular calcification present. 8. There is trace to mild mitral regurgitation. 9. Severe tricuspid regurgitation present. 10. There is severe pulmonary hypertension. 11. The right ventricular systolic pressure, as measured by Doppler, is 65.59mmHg. 12. Trace/mild (physiologic) pulmonic regurgitation. 13. There is no pericardial effusion. DIRECTOR OF PHYSICAL SECURITY: Ese Rahman RDCS
[2021-01-14] MEDS ORDERED: INSULIN PUMP ACTIVE INSULIN 1 EACH MISC MISCELLANE PRN (10:38)
[2021-01-14] MEDS ORDERED: INSULIN PUMP TARGET GLUCOSE 1 EACH MISC MISCELLANE PRN (10:38)
[2021-01-14 11:39] LABS: Glucose,Whole Blood 158 mg/dL (75-99)
--- NOTE | 2021-01-14 11:57 | P.CRDCN ---
History of Present Illness Consult date: 01/14/21 Requesting physician: Main E Sheet Reason for Consult (text): hypotension, elevated troponin Chief complaint: nausea, vomiting, weakness History of present illness: This is a pleasant 65-year-old female patient who follows with Dr. Ashby. She has a history of four-vessel CABG in 2001, ischemic cardiomyopathy with a known ejection fraction of about 35% according to the patient, status post AICD in 2017, hypertension, hyperlipidemia, pulmonary fibrosis, and diabetes mellitus. She presented to the emergency department with complaints of nausea and vomiting as well as hypotension and weakness. Blood pressure at home was apparently 58/41. Systolic blood pressure on admission was in the 70s. Chest x-ray on admission showed no significant change since prior exam from 12/25/2020. EKG on admission showed sinus mechanism with right bundle branch block and ST-T wave changes noted in the anterolateral leads compared to previous. Laboratory values were reviewed and showed potassium of 5.5 with a repeat of 4.2, sodium 129 with a refill of 1:30, BUN 18, creatinine 0.91, NT proBNP of 5950 and troponins of 0.043, 0.264 and 0.915. She is currently on aspirin 81 mg daily, Lasix 20 mg by mouth daily, Lipitor 20 mg by mouth daily at bedtime, carvedilol 3.125 mg by mouth twice a day. She is on Entresto 49 mg/51 mg one tablet by mouth twice a day at home which is currently on hold due to hypotension. Blood pressure has improved and is currently running in the 130s systolic. Upon examination he is resting comfortably in bed. She denies any complaints of chest discomfort prior to arrival. She does worsen she had pain across her shoulders and into her jaw prior to her open heart in 2001 and she denies any complaints of this prior to arrival. She complains of dyspnea on exertion that is relatively stable and fluctuates depending on what she is doing and the humidity level. She complains of chronic left lower extremity edema since her CABG but has noted some edema in her right leg since taking a camping trip earlier in the month. Denies any orthopnea or PND. She's had no palpitations. She's had no discharges from her ICD. She does have complaints of dizziness and weakness with the hypotension but otherwise feels fine. Past Medical History Past Medical History: Heart Failure, Diabetes Mellitus, GERD/Reflux, Hyperlipidemia, Hypertension, Myocardial Infarction ([place]), Thyroid Disorder Additional Past Medical History / Comment(s): Fribrosis in september 2020 Last Myocardial Infarction Date:: 2001 History of Any Multi-Drug Resistant Organisms: None Reported Past Surgical History: Section, Coronary Bypass/CABG, Hysterectomy, Tubal Ligation Additional Past Surgical History / Comment(s): cataract surgery, hand surgery Past Anesthesia/Blood Transfusion Reactions: Postoperative Nausea & Vomiting (PONV) Past Psychological History: Anxiety Smoking Status: Never smoker Past Alcohol Use History: Rare Past Drug Use History: None Reported - Past Family History Father Family Medical History: Myocardial Infarction ([place]) Brother(s) Additional Family Medical History / Comment(s): Heart surgery Medications and Allergies Home Medications Medication Instructions Recorded Confirmed Type LORazepam [Ativan] 1 mg PO HS 02/02/14 01/13/21 History Omeprazole [PriLOSEC] 40 mg PO HS 02/02/14 01/13/21 History Aspirin EC [Ecotrin Low Dose] 81 mg PO DAILY 11/12/20 01/13/21 History Atorvastatin [Lipitor] 20 mg PO HS 11/12/20 01/13/21 History Cholecalciferol [Vitamin D3 (25 50 mcg PO HS 11/12/20 01/13/21 History Mcg = 1000 Iu)] Docusate [Colace] 100 mg PO DAILY PRN 11/12/20 01/13/21 History Insulin Aspart (For Pump) [NovoLOG 0.01 unit SQ-PUMP CONTINUOUS 11/12/20 01/13/21 History (For Pump)] Levothyroxine Sodium [Synthroid] 100 mcg PO [id number] 11/12/20 01/13/21 History Montelukast [Singulair] 10 mg PO DAILY 11/12/20 01/13/21 History Multivit with Calcium,Iron,Min 1 tab PO HS 11/12/20 01/13/21 History [Women's Multivitamin] Sacubitril/Valsartan [Entresto 49 1 tab PO BID 11/12/20 01/13/21 History mg-51 mg Tablet] diphenhydrAMINE HCL [Benadryl] 50 mg PO HS 11/12/20 01/13/21 History buPROPion HCL [buPROPion HCL Xl] 150 mg PO DAILY 12/23/20 01/13/21 History polyethylene glycoL 3350 [Miralax] 17 gm PO DAILY PRN #15 packet 12/25/20 01/13/21 Rx Carvedilol [Coreg] 3.125 mg PO BID 01/13/21 01/13/21 History Cyclobenzaprine [Flexeril] 10 mg PO BID 01/13/21 01/13/21 History Furosemide [Lasix] 20 mg PO DAILY 01/13/21 01/13/21 History Metoclopramide HCl [Reglan] 5 mg PO TID PRN 01/13/21 01/13/21 History Allergies Allergy/AdvReac Type Severity Reaction Status Date / Time adhesive Allergy Unknown Verified 01/13/21 11:57 latex Allergy Unknown Verified 01/13/21 11:57 amoxicillin [From Augmentin] AdvReac Nausea & Verified 01/13/21 11:57 Vomiting clarithromycin [From Biaxin] AdvReac Nausea & Verified 01/13/21 11:57 Vomiting clavulanic acid AdvReac Nausea & Verified 01/13/21 11:57 [From Augmentin] Vomiting codeine AdvReac Nausea & Verified 01/13/21 11:57 Vomiting nitrofurantoin AdvReac Nausea & Verified 01/13/21 11:57 [From Macrobid] Vomiting Physical Exam Vitals: Vital Signs Temp Pulse Pulse Resp BP BP Pulse Ox 01/14/21 03:58 98.7 F 71 18 133/87 97 01/13/21 23:33 97.6 F 74 18 136/76 94 L 01/13/21 19:36 97.6 F 70 18 126/76 95 01/13/21 18:41 67 133/76 01/13/21 15:41 97.5 F L 79 16 151/77 96 01/13/21 13:40 64 16 130/73 100 01/13/21 12:25 78 18 93/54 94 L 01/13/21 11:15 97.5 F L 82 18 79/49 96 Intake and Output 01/13/21 01/14/21 01/14/21 22:59 06:59 14:59 Intake Total 950 100 118 Output Total 300 Balance 950 -200 118 Intake: Oral 950 100 118 Output: Urine 300 Other: Weight 84.368 kg 86.4 kg PHYSICAL EXAMINATION: This is a 65-year-old female in no apparent distress at the time of my examination. VITAL SIGNS: Blood pressure 133/87, heart rate 71, respirations 18, temp 98.7F. Patient is 97 % on 2 L via nasal cannula. HEENT: Head is atraumatic, normocephalic. Pupils are equal, round. Sclerae anicteric. Conjunctivae are clear. Mucous membranes of the mouth are moist. Neck is supple. There is no elevated jugular venous pressure. No carotid bruit is heard. CHEST EXAMINATION: Lungs reveal crackles bilaterally. No wheezes or rhonchi. Respirations even and nonlabored. HEART EXAMINATION: Heart regular, positive S1 and S2. No S3. No S4. Systolic murmur. ABDOMEN: Soft, nontender. Bowel sounds are heard. No organomegaly noted. EXTREMITIES: 2+ peripheral pulses with evidence of mild peripheral edema and no calf tenderness noted. NEUROLOGIC EXAMINATION: Patient is awake, alert and oriented x3. Results 01/14/21 07:45 01/14/21 07:45 Cardiac Enzymes 01/13/21 01/13/21 01/13/21 Range/Units 11:47 11:47 14:56 AST 55 H (14-36) U/L Troponin I 0.043 H* 0.264 H* (0.000-0.034) ng/mL 01/13/21 01/14/21 Range/Units 18:13 07:45 AST 46 H (14-36) U/L Troponin I 0.915 H* (0.000-0.034) ng/mL Coagulation 01/13/21 Range/Units 11:47 PT 11.9 (9.0-12.0) sec APTT 23.8 (22.0-30.0) sec CBC 01/13/21 01/14/21 Range/Units 11:47 07:45 WBC 8.5 6.4 (3.8-10.6) k/uL RBC 3.87 3.42 L (3.80-5.40) m/uL Hgb 13.5 11.8 (11.4-16.0) gm/dL Hct 43.3 37.2 (34.0-46.0) % Plt Count 181 144 L (150-450) k/uL Comprehensive Metabolic Panel 01/13/21 01/14/21 Range/Units 11:47 07:45 Sodium 129 L 130 L (137-145) mmol/L Potassium 5.5 H 4.2 (3.5-5.1) mmol/L Chloride 98 97 L (98-107) mmol/L Carbon Dioxide 20 L 27 (22-30) mmol/L BUN 18 H 17 (7-17) mg/dL Creatinine 0.91 0.65 (0.52-1.04) mg/dL Glucose 280 H 147 H (74-99) mg/dL Calcium 8.9 8.5 (8.4-10.2) mg/dL AST 55 H 46 H (14-36) U/L ALT 26 24 (4-34) U/L Alkaline Phosphatase 85 72 (38-126) U/L Total Protein 6.7 6.0 L (6.3-8.2) g/dL Albumin 3.8 3.2 L (3.5-5.0) g/dL Current Medications Generic Name Dose Route Start Last Admin Trade Name Freq PRN Reason Stop Dose Admin Acetaminophen 650 mg 01/13/21 14:34 Acetaminophen Tab 325 Mg Tab PO Q6HR PRN Mild Pain or Fever > 100.5 Aspirin 81 mg 01/14/21 09:00 01/14/21 09:18 Aspirin 81 Mg PO 81 mg DAILY KATHLEEN Administration Atorvastatin Calcium 20 mg 01/13/21 21:00 01/13/21 20:54 Atorvastatin 20 Mg Tab PO 20 mg HS KATHLEEN Administration Bupropion HCl 150 mg 01/14/21 09:00 01/14/21 09:18 Bupropion Xl 150 Mg Tab.Er.24h PO 150 mg DAILY KATHLEEN Administration Carvedilol 3.125 mg 01/13/21 18:45 01/14/21 06:36 Carvedilol 3.125 Mg Tab PO 3.125 mg BID-W/MEALS KATHLEEN Administration Cyclobenzaprine HCl 10 mg 01/13/21 21:00 01/14/21 09:17 Cyclobenzaprine 10 Mg Tab PO 10 mg BID KATHLEEN Administration Docusate Sodium 100 mg 01/13/21 14:32 Docusate 100 Mg Cap PO DAILY PRN Constipation Famotidine 20 mg 01/13/21 21:00 01/14/21 09:18 Famotidine 20 Mg/2 Ml Vial IV 20 mg Q12HR KATHLEEN Administration Furosemide 20 mg 01/14/21 09:00 01/14/21 09:18 Furosemide 20 Mg Tab PO 20 mg DAILY KATHLEEN Administration Heparin Sodium (Porcine) 5,000 unit 01/13/21 21:00 01/14/21 09:17 Heparin Sodium,Porcine/Pf 5,000 Unit/0.5 Ml Syringe SQ 5,000 unit Q12HR KATHLEEN Administration Insulin Aspart 0 unit 01/14/21 04:05 Insulin Aspart (Novolog) 100 Unit/Ml Vial SQ DAILY PRN Insulin Pump Replacement Levothyroxine Sodium 100 mcg 01/14/21 06:30 01/14/21 06:36 Levothyroxine 100 Mcg Tab PO 100 mcg [id number] KATHLEEN Administration Lorazepam 1 mg 01/13/21 21:31 01/13/21 21:49 Lorazepam 1 Mg Tab PO 1 mg HS PRN Administration Anxiety Metoclopramide HCl 5 mg 01/13/21 14:32 Metoclopramide 5 Mg Tab PO TID PRN Nausea Miscellaneous Information 1 each 01/14/21 04:05 Insulin Pump Basal Rates 1 Each Misc MISCELLANE Q6HR PRN Blood Sugar - High Protocol Miscellaneous Information 0 unit 01/14/21 07:30 01/14/21 09:07 Insulin Pump Meal Bolus 1 Unit Misc MISCELLANE 41 unit ACHS KATHLEEN Administration Protocol Miscellaneous Information 0 unit 01/14/21 04:05 Insulin Pump Correction Bolus 1 Unit Misc MISCELLANE ACHS PRN Blood Sugar - High Protocol Montelukast Sodium 10 mg 01/14/21 09:00 01/14/21 09:17 Montelukast 10 Mg Tab PO 10 mg DAILY KATHLEEN Administration Naloxone HCl 0.2 mg 01/13/21 14:34 Naloxone 0.4 Mg/Ml 1 Ml Vial IV Q2M PRN Opioid Reversal Polyethylene Glycol 17 gm 01/13/21 14:32 Polyethylene Glycol 3350 17 Gm Powd.Pack PO DAILY PRN Constipation Sacubitril/Valsartan 1 each 01/14/21 09:45 Sacubitril/Valsartan 49 Mg-51 Mg Tablet PO BID KATHLEEN Intake and Output 01/13/21 01/14/21 01/14/21 22:59 06:59 14:59 Intake Total 950 100 118 Output Total 300 Balance 950 -200 118 Intake: Oral 950 100 118 Output: Urine 300 Other: Weight 84.368 kg 86.4 kg 01/14/21 07:45 01/14/21 07:45 Assessment and Plan Assessment: #1 non-ST elevation IN #2 hypotension with weakness, nausea and vomiting #3 history of CABG 4 in 2001 #4 ischemic cardiomyopathy with ICD placement 2016 #5 pulmonary fibrosis #6 history of hypertension #7 hyperlipidemia #8 diabetes mellitus Plan: From safety admin assistant perspective we will review 2-D echo with Doppler to assess cardiac structure and function. We will resume the Entresto. We will follow the trend of the blood pressure, renal function and electrolytes. Will maximize medical therapy at this time. Obtain most recent office visit note from Dr. Ambriz. If the patient remains stable we anticipate she'll be discharged home in the next 24-48 hours to follow-up with her primary safety admin assistant for further evaluation with coronary angiography. [employer] note has been reviewed, I agree with a documented findings and plan of care. Patient was seen and examined.
[2021-01-14] MEDS: SACUBITRIL/VALSARTAN 49 MG-51 MG TABLET PO SCH ×2 (12:19→22:23)
--- NOTE | 2021-01-14 12:38 | P.PN ---
Subjective this is a pleasant 65 years old female with past medical history of diabetes mellitus, hypertension, hyperlipidemia, GERD, hypothyroidism. Also she has history of coronary artery disease status post CABG at age 45. She follows up with security assessor Dr. Briggs for she is on insulin pump. Her office inspector is Dr. Moreno. Her golf starter and ranger is Dr. Le and she is on home oxygen of 2 L Presents with hypotension episode. This morning patient had about 4-5 bouts of diarrhea, her give her gatorade she vomited it immediately. She felt some stomach upset and undressed but no abdominal pain or chest pain. No fever. No urinary complaints or dysuria. She felt lightheadedness and dizzy Her blood pressure when checked by her was 51/35, so patient does not look her blood pressure medication in the morning and came to emergency room She denies smoking, alcohol or illicit drugs On admission she was hypotensive 79/49, her blood pressure improved to 1:30/73. Her oxygen saturation is 100% on room air and patient is afebrile Labs show an unremarkable CBC, her sodium is low at 129, potassium was high at 5.5 but sample was hemolyzed Creatinine at 0.9, GFR is 67 Troponin is elevated at 0.04 Bilirubin is 1.9, AST slightly up at 55, ALT is normal at 26 Echocardiogram 2 months ago on 11/12/20 showing ejection fraction of 30-35% with severe tricuspid regurgitation and severe pulmonary hypertension EKG showing ectopic atrial rhythm at 87 with right bundle branch block and QTC is 507 Chest x-ray: No acute changes In the emergency room she received 1 L of normal saline 01/14/2021 Patient clinically doing well with no symptoms today. No chest pain or dyspnea or dizziness.her diarrhea improved She is hemodynamically stable, patient is currently on Coreg and office inspector team are planning to restart her home dose of entersto Echocardiogram showed ejection fraction of 25-30% with severe tricuspid regurgitation and pulmonary hypertension. Currently maintained on aspirin 81 mg on subcutaneous heparin. Cardiology on the case and the recommend keep monitoring for 24-48 hours. Patient will need to follow-up with her office inspector Dr. Moreno as an outpatient Objective - Vital Signs Vital signs: Vital Signs Temp 98.0 F 01/14/21 08:00 Pulse 65 01/14/21 08:00 Resp 20 01/14/21 08:00 BP 131/84 01/14/21 08:00 Pulse Ox 91 L 01/14/21 08:00 Intake & Output 01/13/21 01/14/21 01/14/21 18:59 06:59 18:59 Intake Total 950 100 118 Output Total 300 700 Balance 950 -200 -582 Weight 84.368 kg 86.4 kg Intake: Oral 950 100 118 Output: Urine 300 700 - Exam GENERAL: The patient is alert and oriented x3, not in any acute distress. Well developed, well nourished. HEENT: Pupils are round and equally reacting to light. EOMI. No scleral icterus. No conjunctival pallor. Normocephalic, atraumatic. No pharyngeal erythema. No thyromegaly. CARDIOVASCULAR: S1 and S2 present. No murmurs, rubs, or gallops. PULMONARY: Chest is clear to auscultation, no wheezing or crackles. ABDOMEN: Soft, nontender, nondistended, normoactive bowel sounds. No palpable organomegaly. MUSCULOSKELETAL: No joint swelling or deformity. EXTREMITIES: No cyanosis, clubbing, or pedal edema. NEUROLOGICAL: Gross neurological examination did not reveal any focal deficits. SKIN: No rashes. no petechiae. - Labs CBC & Chem 7: 01/14/21 07:45 01/14/21 07:45 Labs: Abnormal Lab Results - Last 24 Hours (Table) 01/13/21 01/13/21 01/13/21 Range/Units 11:47 11:47 14:56 RBC (3.80-5.40) m/uL MCV 112.1 H (80.0-100.0) fL Plt Count (150-450) k/uL Lymphocytes # 0.4 L (1.0-4.8) k/uL Macrocytosis Marked A Sodium (137-145) mmol/L Chloride (98-107) mmol/L Glucose (74-99) mg/dL POC Glucose (mg/dL) (75-99) mg/dL AST (14-36) U/L Troponin I 0.043 H* 0.264 H* (0.000-0.034) ng/mL Total Protein (6.3-8.2) g/dL Albumin (3.5-5.0) g/dL 01/13/21 01/13/21 01/14/21 Range/Units 18:13 20:11 06:04 RBC (3.80-5.40) m/uL MCV (80.0-100.0) fL Plt Count (150-450) k/uL Lymphocytes # (1.0-4.8) k/uL Macrocytosis Sodium (137-145) mmol/L Chloride (98-107) mmol/L Glucose (74-99) mg/dL POC Glucose (mg/dL) 242 H 154 H (75-99) mg/dL AST (14-36) U/L Troponin I 0.915 H* (0.000-0.034) ng/mL Total Protein (6.3-8.2) g/dL Albumin (3.5-5.0) g/dL 01/14/21 01/14/21 01/14/21 Range/Units 07:45 07:45 07:45 RBC 3.42 L (3.80-5.40) m/uL MCV 108.9 H (80.0-100.0) fL Plt Count 144 L (150-450) k/uL Lymphocytes # 0.8 L (1.0-4.8) k/uL Macrocytosis Marked A Sodium 130 L (137-145) mmol/L Chloride 97 L (98-107) mmol/L Glucose 147 H (74-99) mg/dL POC Glucose (mg/dL) (75-99) mg/dL AST 46 H (14-36) U/L Troponin I 0.579 H* (0.000-0.034) ng/mL Total Protein 6.0 L (6.3-8.2) g/dL Albumin 3.2 L (3.5-5.0) g/dL 01/14/21 Range/Units 11:37 RBC (3.80-5.40) m/uL MCV (80.0-100.0) fL Plt Count (150-450) k/uL Lymphocytes # (1.0-4.8) k/uL Macrocytosis Sodium (137-145) mmol/L Chloride (98-107) mmol/L Glucose (74-99) mg/dL POC Glucose (mg/dL) 158 H (75-99) mg/dL AST (14-36) U/L Troponin I (0.000-0.034) ng/mL Total Protein (6.3-8.2) g/dL Albumin (3.5-5.0) g/dL Assessment and Plan Assessment: Elevated troponin, suspicious for non-ST elevation AR per office inspector service Cardiomyopathy with ejection fraction of 25-30% Severe tricuspid regurgitation with severe pulmonary hypertension Mild hypovolemic hyponatremia at 129 could be related to hypotension. Improved 1 episode of vomiting with one-day diarrhea, suspicious for acute gastroenteritis versus food poisoning. Improved Chronic congestive heart failure, ejection fraction 30-35% Possible chronic kidney disease stage III diabetes mellitus with hyperglycemia Hypertension, patient was hypotensive on admission Hyperlipidemia Hypothyroidism History of GERD Plan: This is a pleasant 65 years old female who presents with an episode of hypotension and slightly elevated troponin. Resume Coreg and entresto , Cardiology consult Give 1 dose of aspirin 325 mg and then continue with 81 mg Continue Lasix Continue insulin pump Labs and medication were reviewed.. Continue same treatment. Continue with symptomatic treatment. Resume home medication. Monitor lytes and vitals. DVT and GI prophylaxis. Further recommendations depends on the clinical course of the patient DVT prophylaxis: Subcutaneous heparin GI Prophylaxis: Pepcid PT/OT: Pending Prognosis is guarded
[2021-01-14 17:13] LABS: Glucose,Whole Blood 62 mg/dL (75-99)
[2021-01-14 17:29] LABS: Glucose,Whole Blood 66 mg/dL (75-99)
[2021-01-14 17:53] LABS: Glucose,Whole Blood 100 mg/dL (75-99)
--- NOTE | 2021-01-14 19:45 | CONS ---
CONSULTATION DATE OF SERVICE: 01/14/2021 REASON FOR CONSULTATION: Nausea, vomiting, diarrhea. HISTORY OF PRESENT ILLNESS: The patient is a 65-year-old pleasant white female who was admitted to the hospital with acute onset of nausea, vomiting, diarrhea, followed by hypertension. The patient apparently was sleeping and suddenly woke up and had several episodes of nausea and vomiting and became somewhat lightheaded and developed some cramping in the lower abdominal area followed by 3-4 loose watery bowel movements. Her gave her some Gatorade to drink, she threw up and he brought her to the emergency room and subsequently she was admitted to the hospital for further evaluation. In the ER, she was noted to have hypotension with a blood pressure of 51/35. She was resuscitated with fluids and this morning she is feeling better. Since being in the hospital she did not have any further episodes of nausea, vomiting or diarrhea. In fact, her last bowel movement was yesterday. She is on a regular diet, tolerating well. The patient states that she has been having these intermittent symptoms on and off for the last several months duration. She has history of chronic constipation, usually has bowel movements every 4-7 days and has been complaining of abdominal bloating. She recalls having a colonoscopy about 3 or 4 years ago that was unremarkable. PAST MEDICAL HISTORY: Significant for diabetes mellitus, hypertension, hyperlipidemia, gastroesophageal reflux disease, chronic constipation, hypothyroidism, congestive heart failure. PAST SURGICAL HISTORY: , CABG, hysterectomy, tubal ligation, cataract surgery, hand surgery. MEDICATIONS: Medications at home include Ativan, Prilosec, aspirin, Lipitor, Colace, NovoLog, Synthroid, Singulair, multivitamin, Entresto, Benadryl, bupropion, MiraLAX, Coreg, Flexeril, Lasix, Reglan. ALLERGIES: AUGMENTIN, BIAXIN, MACROBID, LATEX, ADHESIVE TAPE. FAMILY HISTORY: Father with coronary artery disease. Brother had coronary artery disease status post cardiac surgery. SOCIAL HISTORY: No smoking, no alcohol use. REVIEW OF SYSTEMS: CARDIOPULMONARY: She denies any chest pain, no shortness of breath. GENITOURINARY: No dysuria or hematuria. MUSCULOSKELETAL: Unremarkable. SKIN: Unremarkable. ENDOCRINE: Unremarkable. PSYCHIATRIC: Unremarkable. NEUROLOGY: Some dizziness. ENT/VISION: Unremarkable. GI: As mentioned above. HEMATOLOGY: Unremarkable. PSYCHIATRY: Unremarkable except for mild anxiety. CONSTITUTIONAL: No recent weight loss. No fevers, chills, night sweats. PHYSICAL EXAMINATION: She appears comfortable. VITAL SIGNS: Stable. Blood pressure is 141/90, pulse rate 68, temperature 98.2. HEENT examination unremarkable. Conjunctivae pink. Sclerae anicteric. Oral cavity, no lesions. NECK: No JVD or lymph node enlargement. CHEST: Clear to auscultation. HEART: Regular rate and rhythm. ABDOMEN: Soft. Bowel sounds are positive. No organomegaly. EXTREMITIES: No pedal edema. SKIN; No rashes. NEUROLOGIC: Alert and oriented x3. No focal deficits. LABS: Done at the time of admission the hospital WBC 6.4, hemoglobin 11.8, platelets 144. Basic metabolic panel is within normal limits. Sodium is 130. AST, ALT, T bilirubin and alkaline phosphatase are within normal limits. Troponin was slightly elevated at 0.915. Albumin 3.2. IMPRESSION: 1. Acute onset of nausea, vomiting, diarrhea associated with abdominal pain of one day duration. Symptoms currently have resolved. Possibility of acute gastroenteritis needs to be considered. This morning she is doing well and tolerating regular diet well. 2. Chronic constipation on and off for several months duration which has been progressively getting worse associated with abdominal bloating and some of her symptoms could be related to the chronic constipation. She takes fiber supplements with not much help. 3. Elevated troponin. Cardiology following the patient. 4. History of chronic kidney disease. 5. Diabetes mellitus. 6. Hypertension. 7. Hyperlipidemia. 8. Hypothyroidism. RECOMMENDATIONS: 1. Continue with symptomatic and supportive care. 2. No need for any endoscopic intervention at the present time. 3. I had a lengthy discussion with the patient regarding management of chronic constipation and recommended that she start MiraLAX 1 scoop once or twice daily and titrate it so that she has a bowel movement every day. 4. Aggressive control of blood sugars. 5. We will follow with you closely. MMODL / IJN: [id number] /
[2021-01-14 19:58] LABS: Glucose,Whole Blood 198 mg/dL (75-99)
[2021-01-14] MEDS: LORazepam 1 MG TAB PO PRN (22:23)
[2021-01-14] MEDS: ATORVASTATIN 40 MG TAB PO SCH (22:23)
[2021-01-15] MEDS: LEVOTHYROXINE 100 MCG TAB PO SCH (06:26)
[2021-01-15] MEDS: carvediloL 3.125 MG TAB PO SCH ×2 (06:26→17:09)
[2021-01-15] MEDS: INSULIN PUMP MEAL BOLUS 1 UNIT MISC MISCELLANE SCH ×5 (06:28→21:28)
[2021-01-15] MEDS: ASPIRIN 81 MG PO SCH (08:15)
[2021-01-15] MEDS: buPROPion XL 150 MG TAB.ER.24H PO SCH (08:15)
[2021-01-15] MEDS: MONTELUKAST 10 MG TAB PO SCH (08:15)
[2021-01-15] MEDS: CYCLOBENZAPRINE 10 MG TAB PO SCH ×2 (08:15→21:20)
[2021-01-15] MEDS: FAMOTIDINE 20 MG/2 ML VIAL IV SCH (08:15)
[2021-01-15] MEDS: SACUBITRIL/VALSARTAN 49 MG-51 MG TABLET PO SCH ×2 (08:15→21:20)
[2021-01-15] MEDS: FUROSEMIDE 20 MG TAB PO SCH (08:15)
[2021-01-15] MEDS: HEPARIN SODIUM,PORCINE/PF 5,000 UNIT/0.5 ML SYRINGE SQ SCH ×2 (08:16→21:20)
[2021-01-15 08:18] LABS: African American GFR (CKD) >90 (>60 ml/min/1.73 sqM); Anion Gap 6 mmol/L; Blood Urea Nitrogen 14 mg/dL (7-17); Calcium 8.5 mg/dL (8.4-10.2); Carbon Dioxide 30 mmol/L (22-30); Chloride 97 mmol/L (98-107); Glucose 127 mg/dL (74-99); Non-African American GFR(CKD) >90 (>60 ml/min/1.73 sqM); Potassium 4.1 mmol/L (3.5-5.1); Sodium 133 mmol/L (137-145)
[2021-01-15 12:04] LABS: Glucose,Whole Blood 80 mg/dL (75-99)
--- NOTE | 2021-01-15 13:26 | P.PN ---
Subjective this is a pleasant 65 years old female with past medical history of diabetes mellitus, hypertension, hyperlipidemia, GERD, hypothyroidism. Also she has history of coronary artery disease status post CABG at age 45. She follows up with cable tool operator Dr. Briggs for she is on insulin pump. Her ssis architect is Dr. Moreno. Her charrer is Dr. Le and she is on home oxygen of 2 L Presents with hypotension episode. This morning patient had about 4-5 bouts of diarrhea, her give her gatorade she vomited it immediately. She felt some stomach upset and undressed but no abdominal pain or chest pain. No fever. No urinary complaints or dysuria. She felt lightheadedness and dizzy Her blood pressure when checked by her was 51/35, so patient does not look her blood pressure medication in the morning and came to emergency room She denies smoking, alcohol or illicit drugs On admission she was hypotensive 79/49, her blood pressure improved to 1:30/73. Her oxygen saturation is 100% on room air and patient is afebrile Labs show an unremarkable CBC, her sodium is low at 129, potassium was high at 5.5 but sample was hemolyzed Creatinine at 0.9, GFR is 67 Troponin is elevated at 0.04 Bilirubin is 1.9, AST slightly up at 55, ALT is normal at 26 Echocardiogram 2 months ago on 11/12/20 showing ejection fraction of 30-35% with severe tricuspid regurgitation and severe pulmonary hypertension EKG showing ectopic atrial rhythm at 87 with right bundle branch block and QTC is 507 Chest x-ray: No acute changes In the emergency room she received 1 L of normal saline 01/14/2021 Patient clinically doing well with no symptoms today. No chest pain or dyspnea or dizziness.her diarrhea improved She is hemodynamically stable, patient is currently on Coreg and ssis architect team are planning to restart her home dose of entersto Echocardiogram showed ejection fraction of 25-30% with severe tricuspid regurgitation and pulmonary hypertension. Currently maintained on aspirin 81 mg on subcutaneous heparin. Cardiology on the case and the recommend keep monitoring for 24-48 hours. Patient will need to follow-up with her ssis architect Dr. Moreno as an outpatient 01/15/2021 Patient with no symptoms at rest, she reports some exertional dyspnea which looks mild. Her nausea vomiting and diarrhea has resolved. Hemodynamically she is a stable. Sodium improved to 133, potassium tendon back to normal at 4.1. Glucose is around 200 however it wasn't 60 yesterday afternoon, patient and has been at bedside Mrs. Anna is, for her and has been going on for years, was instructed to use snacks around noontime R Han sugar drops less than 70 and she agrees. She is back on Coreg and entrance to Echocardiogram showing ejection fraction 25-30% with severe tricuspid regurgitation and pulmonary hypertension, as per patient and her ejection fraction was 35% one week earlier when she checked it with Dr. Moreno neurologist Patient and states this is the third hospitalization in 2 months Museum Registrar team may consider cardiac cath, we will defer this to the recommendation Objective - Vital Signs Vital signs: Vital Signs Temp 97.7 F 01/15/21 12:00 Pulse 61 01/15/21 12:00 Resp 20 01/15/21 12:00 BP 144/82 01/15/21 12:00 Pulse Ox 100 01/15/21 12:00 Intake & Output 01/14/21 01/15/21 01/15/21 18:59 06:59 18:59 Intake Total 598 Output Total 1500 550 Balance -902 -550 Weight 81.5 kg Intake: Oral 598 Output: Urine 1500 550 Other: # Voids 1 - Exam GENERAL: The patient is alert and oriented x3, not in any acute distress. Well developed, well nourished. HEENT: Pupils are round and equally reacting to light. EOMI. No scleral icterus. No conjunctival pallor. Normocephalic, atraumatic. No pharyngeal erythema. No thyromegaly. CARDIOVASCULAR: S1 and S2 present. No murmurs, rubs, or gallops. PULMONARY: Chest is clear to auscultation, no wheezing or crackles. ABDOMEN: Soft, nontender, nondistended, normoactive bowel sounds. No palpable organomegaly. MUSCULOSKELETAL: No joint swelling or deformity. EXTREMITIES: No cyanosis, clubbing, or pedal edema. NEUROLOGICAL: Gross neurological examination did not reveal any focal deficits. SKIN: No rashes. no petechiae. - Labs CBC & Chem 7: 01/14/21 07:45 01/15/21 07:22 Labs: Abnormal Lab Results - Last 24 Hours (Table) 01/14/21 01/14/21 01/14/21 Range/Units 07:45 17:11 17:28 Sodium (137-145) mmol/L Chloride (98-107) mmol/L Glucose (74-99) mg/dL POC Glucose (mg/dL) 62 L 66 L (75-99) mg/dL Procalcitonin 0.80 H (0.02-0.09) ng/mL 01/14/21 01/14/21 01/15/21 Range/Units 17:45 19:57 07:22 Sodium 133 L (137-145) mmol/L Chloride 97 L (98-107) mmol/L Glucose 127 H (74-99) mg/dL POC Glucose (mg/dL) 100 H 198 H (75-99) mg/dL Procalcitonin (0.02-0.09) ng/mL Assessment and Plan Assessment: Elevated troponin, suspicious for non-ST elevation [place] per ssis architect service Cardiomyopathy with ejection fraction of 25-30%, with possible slight worsening Severe tricuspid regurgitation with severe pulmonary hypertension Mild hypovolemic hyponatremia at 129 could be related to hypotension. Improved 1 episode of vomiting with one-day diarrhea, suspicious for acute gastroenteritis versus food poisoning. Improved Chronic congestive heart failure, ejection fraction 30-35% Possible chronic kidney disease stage III diabetes mellitus with hyperglycemia Hypertension, patient was hypotensive on admission Hyperlipidemia Hypothyroidism History of GERD Plan: This is a pleasant 65 years old female who presents with an episode of hypotension and slightly elevated troponin. Resume Coreg and entresto , Cardiology consult Give 1 dose of aspirin 325 mg and then continue with 81 mg Continue Lasix oral daily Continue insulin pump Labs and medication were reviewed.. Continue same treatment. Continue with symptomatic treatment. Resume home medication. Monitor lytes and vitals. DVT and GI prophylaxis. Further recommendations depends on the clinical course of the patient DVT prophylaxis: Subcutaneous heparin GI Prophylaxis: Pepcid Prognosis is guarded
--- NOTE | 2021-01-15 14:28 | P.PN ---
Subjective Progress Note Date: 01/15/21 This is a pleasant 65-year-old female patient who follows with Dr. Ashby. She has a history of four-vessel CABG in 2001, ischemic cardiomyopathy with a known ejection fraction of about 35% according to the patient, status post AICD in 2017, hypertension, hyperlipidemia, pulmonary fibrosis, and diabetes mellitus. She presented to the emergency department with complaints of nausea and vomiting as well as hypotension and weakness. Blood pressure at home was apparently 58/41. Systolic blood pressure on admission was in the 70s. Chest x-ray on admission showed no significant change since prior exam from 12/25/2020. EKG on admission showed sinus mechanism with right bundle branch block and ST-T wave changes noted in the anterolateral leads compared to previous. Laboratory values were reviewed and showed potassium of 5.5 with a repeat of 4.2, sodium 129 with a refill of 1:30, BUN 18, creatinine 0.91, NT proBNP of 5950 and troponins of 0.043, 0.264 and 0.915. She is currently on aspirin 81 mg daily, Lasix 20 mg by mouth daily, Lipitor 20 mg by mouth daily at bedtime, carvedilol 3.125 mg by mouth twice a day. She is on Entresto 49 mg/51 mg one tablet by mouth twice a day at home which is currently on hold due to hypotension. Blood pressure has improved and is currently running in the 130s systolic. Upon examination he is resting comfortably in bed. She denies any complaints of felix st discomfort prior to arrival. She does worsen she had pain across her shoulders and into her jaw prior to her open heart in 2001 and she denies any complaints of this prior to arrival. She complains of dyspnea on exertion that is relatively stable and fluctuates depending on what she is doing and the humidity level. She complains of chronic left lower extremity edema since her CABG but has noted some edema in her right leg since taking a camping trip earlier in the month. Denies any orthopnea or PND. She's had no palpitations. She's had no discharges from her ICD. She does have complaints of dizziness and weakness with the hypotension but otherwise feels fine. 01/15/2021 Patient was seen and examined today sitting up in a chair in no acute distress. She is overall been feeling well. She had no further complaints of nausea or vomiting. She's had no complaints of chest discomfort. Vital signs have been stable. She remained afebrile. Objective - Vital Signs Vital signs: Vital Signs Temp 97.7 F 01/15/21 12:00 Pulse 61 01/15/21 12:00 Resp 20 01/15/21 12:00 BP 144/82 01/15/21 12:00 Pulse Ox 100 01/15/21 12:00 Intake & Output 01/14/21 01/15/21 01/15/21 18:59 06:59 18:59 Intake Total 598 Output Total 1500 550 Balance -902 -550 Weight 81.5 kg Intake: Oral 598 Output: Urine 1500 550 Other: # Voids 1 - Exam PHYSICAL EXAMINATION: HEENT: Head is atraumatic, normocephalic. Pupils equal, round. Neck is supple. There is no elevated jugular venous pressure. HEART EXAMINATION: Heart sounds regular, S1 and S2 with a systolic murmur. CHEST EXAMINATION: Lungs are clear to auscultation. No chest wall tenderness is noted on palpation or with deep breathing. ABDOMEN: Soft, nontender. Bowel sounds are heard. No organomegaly noted. EXTREMITIES: 2+ peripheral pulses with evidence of mild peripheral edema and no calf tenderness noted. NEUROLOGIC patient is awake, alert and oriented x3. . - Labs CBC & Chem 7: 01/14/21 07:45 01/15/21 07:22 Labs: Abnormal Lab Results - Last 24 Hours (Table) 01/14/21 01/14/21 01/14/21 Range/Units 07:45 17:11 17:28 Sodium (137-145) mmol/L Chloride (98-107) mmol/L Glucose (74-99) mg/dL POC Glucose (mg/dL) 62 L 66 L (75-99) mg/dL Procalcitonin 0.80 H (0.02-0.09) ng/mL 01/14/21 01/14/21 01/15/21 Range/Units 17:45 19:57 07:22 Sodium 133 L (137-145) mmol/L Chloride 97 L (98-107) mmol/L Glucose 127 H (74-99) mg/dL POC Glucose (mg/dL) 100 H 198 H (75-99) mg/dL Procalcitonin (0.02-0.09) ng/mL Assessment and Plan Assessment: #1 non-ST elevation NM #2 hypotension with weakness, nausea and vomiting #3 history of CABG 4 in 2001 #4 ischemic cardiomyopathy with ICD placement 2017 #5 pulmonary fibrosis #6 history of hypertension #7 hyperlipidemia #8 diabetes mellitus Plan: From 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 At this time she would like to have the catheterization done as an inpatient. We will reevaluate the patient tomorrow for cath to be done next week. SHEET METAL WORKER APPRENTICE note has been reviewed, I agree with a documented findings and plan of care. Patient was seen and examined.
[2021-01-15 16:44] LABS: Glucose,Whole Blood 69 mg/dL (75-99)
[2021-01-15 17:04] LABS: Glucose,Whole Blood 98 mg/dL (75-99)
[2021-01-15 19:56] LABS: Glucose,Whole Blood 152 mg/dL (75-99)
[2021-01-15] MEDS: FAMOTIDINE 20 MG TAB PO SCH (21:20)
[2021-01-15] MEDS: ATORVASTATIN 40 MG TAB PO SCH (21:20)
[2021-01-15] MEDS: LORazepam 1 MG TAB PO PRN (21:25)
[2021-01-16 04:11] LABS: Glucose,Whole Blood 119 mg/dL (75-99)
[2021-01-16 06:13] LABS: Glucose,Whole Blood 94 mg/dL (75-99)
[2021-01-16] MEDS: INSULIN PUMP MEAL BOLUS 1 UNIT MISC MISCELLANE SCH ×4 (06:14→20:31)
[2021-01-16] MEDS: carvediloL 3.125 MG TAB PO SCH (06:15)
[2021-01-16 07:51] LABS: Basophils % (A) 0 %; Eosinophils # (A) 0.1 k/uL (0-0.7); Eosinophils % (A) 2 %; HCT 37.8 % (34.0-46.0); HGB 12.3 gm/dL (11.4-16.0); Lymphocytes # (A) 0.7 k/uL (1.0-4.8); Lymphocytes % (A) 13 %; MCH 35.6 pg (25.0-35.0); MCHC 32.6 g/dL (31.0-37.0); Macrocytosis Marked; Mean Platelet Volume 7.8; Monocytes # (A) 0.5 k/uL (0-1.0); Monocytes % (A) 9 %; Neutrophils # (A) 3.9 k/uL (1.3-7.7); Neutrophils % (A) 74 %; Platelet Count 165 k/uL (150-450); RBC 3.47 m/uL (3.80-5.40); RDW 13.5 % (11.5-15.5); WBC 5.3 k/uL (3.8-10.6)
[2021-01-16 08:09] LABS: ALT 27 U/L (4-34); AST 43 U/L (14-36); African American GFR (CKD) >90 (>60 ml/min/1.73 sqM); Albumin 3.4 g/dL (3.5-5.0); Alkaline Phosphatase 89 U/L (38-126); Anion Gap 7 mmol/L; Blood Urea Nitrogen 10 mg/dL (7-17); Calcium 8.4 mg/dL (8.4-10.2); Carbon Dioxide 29 mmol/L (22-30); Chloride 96 mmol/L (98-107); Glucose 132 mg/dL (74-99); Non-African American GFR(CKD) >90 (>60 ml/min/1.73 sqM); Sodium 132 mmol/L (137-145); Total Bilirubin 0.7 mg/dL (0.2-1.3); Total Protein 6.3 g/dL (6.3-8.2)
[2021-01-16 08:30] LABS: Potassium 4.2 mmol/L (3.5-5.1)
--- NOTE | 2021-01-16 08:33 | PN ---
PROGRESS NOTE DATE OF DICTATION: January 16, 2021 The patient is a 65-year-old pleasant white female admitted to hospital with acute onset of nausea, vomiting, diarrhea and hypertension. Her symptoms currently have resolved. She continues to have persistent constipation. While in the hospital, she was noted to have elevated troponin. Cardiology is following the patient closely and she is scheduled for cardiac catheterization tomorrow. In the meantime, oral intake has been normal. She denies any abdominal pain. No nausea, no vomiting. PHYSICAL EXAMINATION: She appears comfortable. No apparent distress. Vital signs are stable. Blood pressure is 130/86, pulse rate 82 per minute and afebrile. HEENT examination unremarkable. Conjunctivae pink. Sclerae anicteric. Oral cavity no lesions. Neck no JVD or lymph node enlargement. Chest was clear to auscultation. Heart: Regular rate and rhythm. Abdomen: Soft. Bowel sounds are positive. No organomegaly. Extremities: No pedal edema. Neuro: She is alert and oriented x3. No focal deficits. LABS: No labs available from today. IMPRESSION: 1. Acute onset of nausea, vomiting and diarrhea has resolved. Possible viral gastroenteritis. 2. History of chronic constipation. 3. Elevated troponin and possible non ST-segment elevated myocardial infarction. Cardiology following the patient closely. Scheduled for a cardiac cath tomorrow. RECOMMENDATIONS: 1. Continue with regular diet. 2. We will start her on MiraLAX 1 scoop daily and titrate so that she has 1 bowel movement every day. 3. High-fiber diet. 4. No plans on any endoscopic intervention. 5. We will follow with you closely. Thank you for this consultation. MMODL / IJN: [id number] /
[2021-01-16] MEDS: CYCLOBENZAPRINE 10 MG TAB PO SCH ×2 (08:55→20:42)
[2021-01-16] MEDS: ASPIRIN 81 MG PO SCH (08:55)
[2021-01-16] MEDS: HEPARIN SODIUM,PORCINE/PF 5,000 UNIT/0.5 ML SYRINGE SQ SCH ×2 (08:55→20:42)
[2021-01-16] MEDS: FUROSEMIDE 20 MG TAB PO SCH (08:55)
[2021-01-16] MEDS: MONTELUKAST 10 MG TAB PO SCH (08:55)
[2021-01-16] MEDS: SACUBITRIL/VALSARTAN 49 MG-51 MG TABLET PO SCH ×2 (08:55→20:42)
[2021-01-16] MEDS: FAMOTIDINE 20 MG TAB PO SCH ×2 (08:55→20:42)
[2021-01-16] MEDS: buPROPion XL 150 MG TAB.ER.24H PO SCH (08:55)
--- NOTE | 2021-01-16 11:05 | P.PN ---
Subjective this is a pleasant 65 years old female with past medical history of diabetes mellitus, hypertension, hyperlipidemia, GERD, hypothyroidism. Also she has history of coronary artery disease status post CABG at age 45. She follows up with energy auditor Dr. Briggs for she is on insulin pump. Her splicing technician is Dr. Moreno. Her tile classifier is Dr. Le and she is on home oxygen of 2 L Presents with hypotension episode. This morning patient had about 4-5 bouts of diarrhea, her give her gatorade she vomited it immediately. She felt some stomach upset and undressed but no abdominal pain or chest pain. No fever. No urinary complaints or dysuria. She felt lightheadedness and dizzy Her blood pressure when checked by her was 51/35, so patient does not look her blood pressure medication in the morning and came to emergency room She denies smoking, alcohol or illicit drugs On admission she was hypotensive 79/49, her blood pressure improved to 1:30/73. Her oxygen saturation is 100% on room air and patient is afebrile Labs show an unremarkable CBC, her sodium is low at 129, potassium was high at 5.5 but sample was hemolyzed Creatinine at 0.9, GFR is 67 Troponin is elevated at 0.04 Bilirubin is 1.9, AST slightly up at 55, ALT is normal at 26 Echocardiogram 2 months ago on 11/12/20 showing ejection fraction of 30-35% with severe tricuspid regurgitation and severe pulmonary hypertension EKG showing ectopic atrial rhythm at 87 with right bundle branch block and QTC is 507 Chest x-ray: No acute changes In the emergency room she received 1 L of normal saline 01/14/2021 Patient clinically doing well with no symptoms today. No chest pain or dyspnea or dizziness.her diarrhea improved She is hemodynamically stable, patient is currently on Coreg and splicing technician team are planning to restart her home dose of entersto Echocardiogram showed ejection fraction of 25-30% with severe tricuspid regurgitation and pulmonary hypertension. Currently maintained on aspirin 81 mg on subcutaneous heparin. Cardiology on the case and the recommend keep monitoring for 24-48 hours. Patient will need to follow-up with her splicing technician Dr. Moreno as an outpatient 01/15/2021 Patient with no symptoms at rest, she reports some exertional dyspnea which looks mild. Her nausea vomiting and diarrhea has resolved. Hemodynamically she is a stable. Sodium improved to 133, potassium tendon back to normal at 4.1. Glucose is around 200 however it wasn't 60 yesterday afternoon, patient and has been at bedside Mrs. Anna is, for her and has been going on for years, was instructed to use snacks around noontime R Han sugar drops less than 70 and she agrees. She is back on Coreg and entrance to Echocardiogram showing ejection fraction 25-30% with severe tricuspid regurgitation and pulmonary hypertension, as per patient and her ejection fraction was 35% one week earlier when she checked it with Dr. Moreno neurologjeff Patient and states this is the third hospitalization in 2 months Bag Adjuster team may consider cardiac cath, we will defer this to the recommendation 01/16/2021 Patient still with some mild exertional dyspnea but no chest pain. She is comfortable in her bed currently. Vital stable, labs are stable. She remains on aspirin 81 mg daily which is her home aspirin Planned for cardiac cath tomorrow with splicing technician team Objective - Vital Signs Vital signs: Vital Signs Temp 97.6 F 01/16/21 08:00 Pulse 66 01/16/21 08:00 Resp 18 01/16/21 08:00 BP 144/78 01/16/21 08:00 Pulse Ox 92 L 01/16/21 08:00 Intake & Output 01/15/21 01/16/21 01/16/21 18:59 06:59 18:59 Intake Total 420 240 Output Total 1350 800 Balance -930 -800 240 Weight 84.7 kg Intake: Oral 420 240 Output: Urine 1350 800 Other: Voiding Method Toilet Toilet # Voids 1 - Exam GENERAL: The patient is alert and oriented x3, not in any acute distress. Well developed, well nourished. HEENT: Pupils are round and equally reacting to light. EOMI. No scleral icterus. No conjunctival pallor. Normocephalic, atraumatic. No pharyngeal erythema. No thyromegaly. CARDIOVASCULAR: S1 and S2 present. No murmurs, rubs, or gallops. PULMONARY: Chest is clear to auscultation, no wheezing or crackles. ABDOMEN: Soft, nontender, nondistended, normoactive bowel sounds. No palpable organomegaly. MUSCULOSKELETAL: No joint swelling or deformity. EXTREMITIES: No cyanosis, clubbing, or pedal edema. NEUROLOGICAL: Gross neurological examination did not reveal any focal deficits. SKIN: No rashes. no petechiae. - Labs CBC & Chem 7: 01/16/21 07:32 01/16/21 07:32 Labs: Abnormal Lab Results - Last 24 Hours (Table) 01/15/21 01/15/21 01/16/21 Range/Units 16:42 19:53 04:08 RBC (3.80-5.40) m/uL MCV (80.0-100.0) fL MCH (25.0-35.0) pg Lymphocytes # (1.0-4.8) k/uL Macrocytosis Sodium (137-145) mmol/L Chloride (98-107) mmol/L Glucose (74-99) mg/dL POC Glucose (mg/dL) 69 L 152 H 119 H (75-99) mg/dL AST (14-36) U/L Albumin (3.5-5.0) g/dL 01/16/21 01/16/21 Range/Units 07:32 07:32 RBC 3.47 L (3.80-5.40) m/uL MCV 109.0 H (80.0-100.0) fL MCH 35.6 H (25.0-35.0) pg Lymphocytes # 0.7 L (1.0-4.8) k/uL Macrocytosis Marked A Sodium 132 L (137-145) mmol/L Chloride 96 L (98-107) mmol/L Glucose 132 H (74-99) mg/dL POC Glucose (mg/dL) (75-99) mg/dL AST 43 H (14-36) U/L Albumin 3.4 L (3.5-5.0) g/dL Assessment and Plan Assessment: Elevated troponin, suspicious for non-ST elevation [place] per splicing technician service Cardiomyopathy with ejection fraction of 25-30%, with possible slight worsening Severe tricuspid regurgitation with severe pulmonary hypertension Mild hypovolemic hyponatremia at 129 could be related to hypotension. Improved 1 episode of vomiting with one-day diarrhea, suspicious for acute gastroe nteritis versus food poisoning. Improved Chronic congestive heart failure, ejection fraction 30-35% Possible chronic kidney disease stage III diabetes mellitus with hyperglycemia Hypertension, patient was hypotensive on admission Hyperlipidemia Hypothyroidism History of GERD Plan: This is a pleasant 65 years old female who presents with an episode of hypotension and slightly elevated troponin. Resume Coreg and entresto , Cardiology consult Give 1 dose of aspirin 325 mg and then continue with 81 mg Continue Lasix oral daily Continue insulin pump Cardiac cath on Sunday Labs and medication were reviewed.. Continue same treatment. Continue with symptomatic treatment. Resume home medication. Monitor lytes and vitals. DVT and GI prophylaxis. Further recommendations depends on the clinical course of the patient DVT prophylaxis: Subcutaneous heparin GI Prophylaxis: Pepcid Prognosis is guarded
[2021-01-16] MEDS ORDERED: SODIUM CHLORIDE 0.9% 1,000 ML in EMPTY BAG 1 BAG IV ONE (12:55)
[2021-01-16] MEDS ORDERED: ALPRAZolam 0.25 MG TAB PO PRN (12:55)
[2021-01-16] MEDS ORDERED: NITROGLYCERIN SL TABS 0.4 MG TAB SUBLINGUAL PRN (12:55)
[2021-01-16] MEDS ORDERED: ASPIRIN 325 MG TAB PO STA (12:55)
[2021-01-16] MEDS ORDERED: ALPRAZolam 0.5 MG TAB PO PRN (12:55)
[2021-01-16] MEDS ORDERED: ATORVASTATIN 80 MG TAB PO STA (12:55)
--- NOTE | 2021-01-16 13:28 | PN ---
PROGRESS NOTE Mrs. Potts is a 65-year-old female with known history of severe cardiomyopathy, history of coronary artery disease status post coronary bypass grafting 19 years ago, who presented with symptoms of nausea, vomiting, as well as progressive dyspnea. She had mild troponin elevation. She had an echocardiogram performed that revealed ejection fraction of 25% to 30% with severe tricuspid regurgitation and severe pulmonary hypertension. She is feeling better today, although she continues to have dyspnea. She has no further diarrhea or nausea. She has a cough. She has no dizziness or palpitation. No syncope. She continues to be on aspirin once a day, Lipitor 40 mg daily, carvedilol 3.125 mg twice a day, Lasix 20 mg daily, Entresto 49-51 twice a day. PHYSICAL EXAMINATION: Blood pressure running in the 130s to 140s with a heart rate in 60s. LUNGS: Clear. HEART: Regular rate rhythm. S1, S2. No S3. No rub appreciated. ABDOMEN: Soft, nontender. EXTREMITIES: No edema. IMPRESSION: 1. Non ST-segment elevation myocardial infarction. 2. Severe ischemic cardiomyopathy status post ICD implant. 3. History of coronary bypass grafting. 4. Episode of nausea and vomiting. RECOMMENDATION: I discussed the findings with the patient. She would favor proceeding with a cardiac catheterization in [facility]. She will be tentatively scheduled to undergo the procedure tomorrow and, depending on the results of the testing, further recommendation made. The rationale behind the procedures, risks, and the complications were discussed with the patient, who is in full understanding and agreement. MMSANCHO / SARINAN: [id number] /
[2021-01-16] MEDS: carvediloL 6.25 MG TAB PO SCH (16:57)
[2021-01-16 17:03] LABS: Glucose,Whole Blood 104 mg/dL (75-99)
[2021-01-16] MEDS: ATORVASTATIN 40 MG TAB PO SCH (20:33)
[2021-01-16] MEDS: LORazepam 1 MG TAB PO PRN (20:42)
[2021-01-16 20:52] LABS: Glucose,Whole Blood 159 mg/dL (75-99)
[2021-01-17 02:05] LABS: Glucose,Whole Blood 162 mg/dL (75-99)
[2021-01-17 05:28] LABS: Glucose,Whole Blood 93 mg/dL (75-99)
[2021-01-17] MEDS: ASPIRIN 81 MG PO SCH (05:42)
[2021-01-17 05:56] LABS: Appearance,Urine Clear (Clear); Bacteria,Urine Occasional /hpf; Bilirubin,Urine Negative (Negative); Blood,Urine Large (Negative); Color,Urine Light Yellow; Glucose,Urine (UA) Negative (Negative); Ketones,Urine Negative (Negative); Leukocyte Esterase,Urine Small (Negative); Nitrite,Urine Negative (Negative); Protein,Urine Negative (Negative); RBC,Urine 4 /hpf (0-5); Specific Gravity,Urine 1.005 (1.001-1.035); Urobilinogen,Urine <2.0 mg/dL (<2.0); WBC,Urine 5 /hpf (0-5)
[2021-01-17] MEDS: LEVOTHYROXINE 100 MCG TAB PO SCH (06:07)
[2021-01-17] MEDS: MONTELUKAST 10 MG TAB PO SCH (06:08)
[2021-01-17] MEDS: CYCLOBENZAPRINE 10 MG TAB PO SCH ×2 (06:08→20:37)
[2021-01-17] MEDS: carvediloL 6.25 MG TAB PO SCH ×2 (06:08→17:57)
[2021-01-17] MEDS: FAMOTIDINE 20 MG TAB PO SCH ×2 (06:08→20:37)
[2021-01-17] MEDS: HEPARIN SODIUM,PORCINE/PF 5,000 UNIT/0.5 ML SYRINGE SQ SCH ×2 (06:08→20:37)
[2021-01-17] MEDS: INSULIN PUMP MEAL BOLUS 1 UNIT MISC MISCELLANE SCH ×4 (06:16→21:31)
[2021-01-17] MEDS: buPROPion XL 150 MG TAB.ER.24H PO SCH (06:21)
[2021-01-17] MEDS: SACUBITRIL/VALSARTAN 49 MG-51 MG TABLET PO SCH ×2 (06:21→20:37)
[2021-01-17] MEDS ORDERED: HEPARIN SODIUM,PORCINE 10,000 UNIT in SODIUM CHLORIDE 0.9% 1,000 ML IRRIGATION PRN (07:00)
[2021-01-17] MEDS ORDERED: HEPARIN SODIUM,PORCINE 2,500 UNIT in SODIUM CHLORIDE 0.9% 250 ML IRRIGATION PRN (07:00)
[2021-01-17] MEDS ORDERED: HEPARIN SODIUM 1,000 UN/ML (10ML VL) ONE ×2 (07:15→08:08)
[2021-01-17] MEDS ORDERED: LIDOCAINE 1% INJ 10MG/ML (20 ML MDV) ONE (07:16)
[2021-01-17] MEDS ORDERED: fentaNYL (PF) 50 MCG/ML 2 ML AMP ONE (07:16)
[2021-01-17] MEDS ORDERED: VERAPAMIL 2.5 MG/ML 2 ML AMP ONE (07:16)
[2021-01-17] MEDS ORDERED: fentaNYL (PF) 50 MCG/ML 2 ML AMP IV ONE (07:40)
[2021-01-17] MEDS ORDERED: IV FLUID CONTINUATION 1,000 ML IV ONE (07:40)
[2021-01-17] MEDS ORDERED: LIDOCAINE 1% INJ 10MG/ML (20 ML MDV) SQ ONE (07:45)
[2021-01-17] MEDS: MIDAZOLAM 2 MG/2 ML VIAL IV ONE ×2 (07:47→08:26)
[2021-01-17] MEDS ORDERED: CLOPIDOGREL 75 MG TAB ONE (08:08)
[2021-01-17] MEDS ORDERED: HEPARIN SODIUM 1,000 UN/ML (10ML VL) IV ONE (08:11)
[2021-01-17] MEDS ORDERED: CLOPIDOGREL 75 MG TAB PO ONE (08:14)
[2021-01-17] MEDS ORDERED: IOPAMIDOL-370 125ML BTL INJ ONE (08:17)
[2021-01-17] MEDS ORDERED: IOPAMIDOL-370 50ML BTL INJ ONE (08:25)
[2021-01-17] MEDS ORDERED: IOPAMIDOL-370 100ML BTL INJ ONE ×2 (08:32→08:39)
[2021-01-17] MEDS ORDERED: MAG HYDROX/AL HYDROX/SIMETH 30 ML CUP PO PRN (08:56)
[2021-01-17] MEDS ORDERED: ZOLPIDEM 5 MG TAB PO PRN (08:56)
[2021-01-17] MEDS ORDERED: NITROGLYCERIN SL TABS 0.4 MG TAB SUBLINGUAL PRN (08:56)
[2021-01-17] MEDS ORDERED: RX INFO: IV CONTRAST WAS GIVEN 1 EACH MISC MISCELLANE PRN (08:56)
[2021-01-17] MEDS ORDERED: ATROPINE SULFATE 0.1 MG/ML 10ML SYRINGE IV PRN (08:56)
[2021-01-17] MEDS ORDERED: SODIUM CHLORIDE 0.9% 1,000 ML IV SCH (09:00)
[2021-01-17] MEDS: FUROSEMIDE 20 MG TAB PO SCH (09:12)
--- NOTE | 2021-01-17 09:31 | CC ---
CARDIAC CATHETERIZATION REPORT PROCEDURE PERFORMED: Cardiac catheterization. INDICATIONS: Ms. Potts is a 65-year-old female with known history of CAD status post coronary artery bypass grafting, history of ischemic cardiomyopathy who presented with symptoms of dyspnea and mild troponin elevation. In view of that, recommendation was made regarding cardiac catheterization. The procedure as well as the risks and complications were discussed with the patient who is in full understanding and agreement. PROCEDURE: Patient was brought to blood bank laboratory technologist in a fasting semi-sedated state after receiving fentanyl and Benadryl and achieving moderate conscious sedated state. Using Xylocaine anesthesia and Seldinger technique a 6-Icelandic sheath was introduced in the right femoral artery. Selective right and left coronary angiography performed using 6-Icelandic 4 bend right and left Amado catheter. Multiple views taken of the right coronary artery including hemiaxial views were obtained. Following that 6-Icelandic right Amado was used to cannulate the saphenous vein graft to the right coronary artery, saphenous vein graft to the diagonal branch and ANTUNEZ to the LAD. Images of those grafts were obtained. Following that catheter were removed and a 6-Icelandic tight pigtail catheter was introduced in the left ventricle and left ventricular end-diastolic pressure was calculated. Following that, an ANGOLAN view of the ascending aorta was performed. Following that, the pigtail catheter was removed and the right Amado was reintroduced and the saphenous vein graft to the right PDA was visualized and images were obtained. Following that, catheter removed, images were reviewed. FLUOROSCOPY: There is calcification involving all the coronary arteries. FINDINGS: 1. LEFT MAIN: This is a large-sized vessel, bifurcating into left circumflex, left anterior descending artery. Left main coronary artery has no evidence of high-grade stenosis. 2. LEFT ANTERIOR DESCENDING ARTERY: This vessel is totally occluded proximally at the takeoff of the first septal clerical support with no significant antegrade flow. 3. LEFT CIRCUMFLEX: This is a small caliber vessel, heavily calcified. The proximal segment has diffuse disease with area of stenosis of 99%. The rest of the vessel has no high-grade stenosis. 4. RIGHT CORONARY ARTERY: This vessel is totally occluded proximally with no antegrade flow. 5. SAPHENOUS VEIN GRAFT TO THE DIAGONAL BRANCH: The proximal and distal anastomotic sites are patent. The flow into the diagonal branches is brisk. There is mild plaque in the body of the graft of 10-20%. 6. SAPHENOUS VEIN GRAFT TO THE RIGHT PDA. This is an ectatic graft. The proximal descending anastomotic sites are patent. The graft has diffuse plaquing with an ectatic segment, but no evidence of high-grade stenosis. 7. SAPHENOUS VEIN GRAFT TO THE RIGHT PDA. The proximal and distal anastomotic sites are patent. The flow in the PDA is brisk. In the mid distal segment of the body of the graft there is a calcified lesion of 99%. The rest of the vessel has diffuse disease with no evidence of high-grade stenosis. 8. ANTUNEZ TO LAD: The distal anastomotic site is patent. The flow into the LAD is brisk. The LAD has no evidence of high-grade stenosis. 9. AORTOGRAM: Aortogram was performed in the ANGOLAN view and revealed a normal appearance of the ascending aorta with a tricuspid aortic valve. There is 1+ aortic regurgitation. LEFT VENTRICULOGRAM: Left ventriculogram was not performed. HEMODYNAMICS: There was no gradient across the aortic valve. The left ventricular end- diastolic pressure was 10-12 mmHg. CONCLUSION: 1. Severe triple-vessel coronary artery disease. 2. Patent ANTUNEZ to LAD. 3. Patent saphenous vein graft to the diagonal branch and to the right coronary artery with diffuse disease in the body of the graft. 4. Patent saphenous vein graft to the PDA with critical stenosis in the mid distal segment of the body of the graft. RECOMMENDATION: In view of finding anatomy, I recommend proceeding with angioplasty and stenting. The procedure as well as the risks and the complications were discussed with the patient who is in full understanding and agreement. MMSANCHO / SARINAN: [id number] / ANA PAULA
--- NOTE | 2021-01-17 09:36 | PTCA ---
PERCUTANEOUSTRANS CORORONARY ANGIOGRAPHY PROCEDURE PERFORMED: Angioplasty. INDICATIONS: Mrs. Potts is a 65-year-old female with a known history of coronary artery disease who had evidence of nonST-segment elevation myocardial infarction, underwent cardiac catheterization and was found to have critical stenosis in the body of the saphenous vein graft to the right coronary artery. In view of that, recommendation made regarding angioplasty and stenting. The procedure as well as the risks and the complications were discussed with the patient who is in full understanding and agreement. PROCEDURE: A 6-Pakistani FR4 guiding catheter introduced in the system. Following that, a 0.014 balanced medium weight J-wire was advanced across the lesion positioned distally in the PDA. Then a 2.75 x 12 mm NC Trek balloon was advanced and two inflations at 14 atmospheres were done. Following that the balloon was removed and a 3.0 x 23 mm Xience Aubrie stent was advanced, deployed and postdilated at 18 atmospheres. Following that the balloon was removed and a 3.25 x 12 mm NC Trek balloon was advanced and inflations up to 16 atmospheres were done. Following that the balloon was removed and a 3.5 x 8 mm NC Trek balloon was advanced and inflation at 16 atmospheres was done. After the last inflation, after appropriate wait, the balloon and the guidewire were withdrawn back in the guiding catheter. Images were obtained and repeated. Those images reveal stable successful stenting. At that point, the guiding catheter, the balloon and the guidewire were removed. The sheath was removed. Hemostasis was obtained with deployment of TR band and of an Angio-Seal. There was no immediate complication. Patient is returned to her room in stable condition. Of note, patient received 6000 units of intravenous heparin as well as oral loading dose of clopidogrel. She has no chest discomfort or significant EKG changes with the inflation. RESULTS: Successful stenting of the body of the saphenous vein graft to the right PDA with reduction of stenosis from 99% to less than 5% in a heavily calcified segment. RECOMMENDATION: Patient will be continued on aspirin, Plavix, beta stephanie, and statin. The importance of dual antiplatelet treatment was discussed with the patient and her family who are in full understanding and agreement. Duration of procedure is 55 minutes. MMODL / IJN: [id number] /
[2021-01-17 11:42] LABS: Glucose,Whole Blood 206 mg/dL (75-99)
[2021-01-17 11:50] LABS: African American GFR (CKD) >90 (>60 ml/min/1.73 sqM); Anion Gap 5 mmol/L; Blood Urea Nitrogen 12 mg/dL (7-17); Calcium 8.3 mg/dL (8.4-10.2); Carbon Dioxide 26 mmol/L (22-30); Chloride 97 mmol/L (98-107); Glucose 237 mg/dL (74-99); Non-African American GFR(CKD) >90 (>60 ml/min/1.73 sqM); Potassium 5.1 mmol/L (3.5-5.1); Sodium 128 mmol/L (137-145)
--- NOTE | 2021-01-17 11:53 | P.PN ---
Subjective this is a pleasant 65 years old female with past medical history of diabetes mellitus, hypertension, hyperlipidemia, GERD, hypothyroidism. Also she has history of coronary artery disease status post CABG at age 45. She follows up with newspaper manager Dr. Briggs for she is on insulin pump. Her automation design engineer is Dr. Moreno. Her location man is Dr. Le and she is on home oxygen of 2 L Presents with hypotension episode. This morning patient had about 4-5 bouts of diarrhea, her give her gatorade she vomited it immediately. She felt some stomach upset and undressed but no abdominal pain or chest pain. No fever. No urinary complaints or dysuria. She felt lightheadedness and dizzy Her blood pressure when checked by her was 51/35, so patient does not look her blood pressure medication in the morning and came to emergency room She denies smoking, alcohol or illicit drugs On admission she was hypotensive 79/49, her blood pressure improved to 1:30/73. Her oxygen saturation is 100% on room air and patient is afebrile Labs show an unremarkable CBC, her sodium is low at 129, potassium was high at 5.5 but sample was hemolyzed Creatinine at 0.9, GFR is 67 Troponin is elevated at 0.04 Bilirubin is 1.9, AST slightly up at 55, ALT is normal at 26 Echocardiogram 2 months ago on 11/12/20 showing ejection fraction of 30-35% with severe tricuspid regurgitation and severe pulmonary hypertension EKG showing ectopic atrial rhythm at 87 with right bundle branch block and QTC is 507 Chest x-ray: No acute changes In the emergency room she received 1 L of normal saline 01/14/2021 Patient clinically doing well with no symptoms today. No chest pain or dyspnea or dizziness.her diarrhea improved She is hemodynamically stable, patient is currently on Coreg and automation design engineer team are planning to restart her home dose of entersto Echocardiogram showed ejection fraction of 25-30% with severe tricuspid regurgitation and pulmonary hypertension. Currently maintained on aspirin 81 mg on subcutaneous heparin. Cardiology on the case and the recommend keep monitoring for 24-48 hours. Patient will need to follow-up with her automation design engineer Dr. Moreno as an outpatient 01/15/2021 Patient with no symptoms at rest, she reports some exertional dyspnea which looks mild. Her nausea vomiting and diarrhea has resolved. Hemodynamically she is a stable. Sodium improved to 133, potassium tendon back to normal at 4.1. Glucose is around 200 however it wasn't 60 yesterday afternoon, patient and has been at bedside Mrs. Anna is, for her and has been going on for years, was instructed to use snacks around noontime R Han sugar drops less than 70 and she agrees. She is back on Coreg and entrance to Echocardiogram showing ejection fraction 25-30% with severe tricuspid regurgitation and pulmonary hypertension, as per patient and her ejection fraction was 35% one week earlier when she checked it with Dr. Moreno neurologjeff Patient and states this is the third hospitalization in 2 months Acid Tank Cleaner team may consider cardiac cath, we will defer this to the recommendation 01/16/2021 Patient still with some mild exertional dyspnea but no chest pain. She is comfortable in her bed currently. Vital stable, labs are stable. She remains on aspirin 81 mg daily which is her home aspirin Planned for cardiac cath tomorrow with automation design engineer team 01/17/2021 Patient underwent cardiac cath today showed severe triple-vessel coronary artery disease, where she underwent successful stenting of the body of the saphenous vein graft to the right PDA with reduction of stenosis from 99% to less than 5%. Postprocedure she is fully awake and oriented, with no chest pain or dyspnea. Postprocedure her blood pressure was on the low side 78/54 and a bolus of normal saline is provided. Patient remains fully awakened asymptomatic Continue with aspirin and Plavix Yesterday patient reported some blood in the urine, urine analysis large urinary blood and small leukocyte esterase. We will check bladder scan and urology consult She is currently On normal saline at 75 mL/h Objective - Vital Signs Vital signs: Vital Signs Temp 97.7 F 01/17/21 05:00 Pulse 67 01/17/21 05:00 Resp 16 01/17/21 09:55 BP 87/51 01/17/21 10:19 Pulse Ox 90 L 01/17/21 09:55 Intake & Output 01/16/21 01/17/21 01/17/21 18:59 06:59 18:59 Intake Total 660 100 Output Total 1200 900 Balance -540 -900 100 Weight 84.5 kg Intake: IV 100 Oral 660 Output: Urine 1200 900 Other: Voiding Method Toilet Toilet # Voids 1 - Exam GENERAL: The patient is alert and oriented x3, not in any acute distress. Well developed, well nourished. HEENT: Pupils are round and equally reacting to light. EOMI. No scleral icterus. No conjunctival pallor. Normocephalic, atraumatic. No pharyngeal erythema. No thyromegaly. CARDIOVASCULAR: S1 and S2 present. No murmurs, rubs, or gallops. PULMONARY: Chest is clear to auscultation, no wheezing or crackles. ABDOMEN: Soft, nontender, nondistended, normoactive bowel sounds. No palpable organomegaly. MUSCULOSKELETAL: No joint swelling or deformity. EXTREMITIES: No cyanosis, clubbing, or pedal edema. NEUROLOGICAL: Gross neurological examination did not reveal any focal deficits. SKIN: No rashes. no petechiae. - Labs CBC & Chem 7: 01/16/21 07:32 01/16/21 07:32 Labs: Abnormal Lab Results - Last 24 Hours (Table) 01/16/21 01/16/21 01/17/21 Range/Units 17:01 20:27 02:03 POC Glucose (mg/dL) 104 H 159 H 162 H (75-99) mg/dL Urine Blood (Negative) Ur Leukocyte Esterase (Negative) Urine Bacteria (None) /hpf 01/17/21 01/17/21 Range/Units 05:11 11:35 POC Glucose (mg/dL) 206 H (75-99) mg/dL Urine Blood Large H (Negative) Ur Leukocyte Esterase Small H (Negative) Urine Bacteria Occasional H (None) /hpf Assessment and Plan Assessment: Elevated troponin, suspicious for non-ST elevation GA per automation design engineer service. Secondary to severe triple-vessel coronary artery disease, status post stenting of the body of the saphenous vein graft to the right PDA Cardiomyopathy with ejection fraction of 25-30%, with possible slight worsening Severe tricuspid regurgitation with severe pulmonary hypertension hematuria Mild hypovolemic hyponatremia at 129 could be related to hypotension. Improved 1 episode of vomiting with one-day diarrhea, suspicious for acute ga stroenteritis versus food poisoning. Improved Chronic congestive heart failure, ejection fraction 30-35% Possible chronic kidney disease stage III diabetes mellitus with hyperglycemia Hypertension, patient was hypotensive on admission Hyperlipidemia Hypothyroidism History of GERD Plan: This is a pleasant 65 years old female who presents with an episode of non-ST SHELLEY, status post stent to right PDA Continue with aspirin and Plavix Resume Coreg and entresto , Cardiology consult on the case Continue Lasix oral daily Urology consult Continue insulin pump Cardiac cath on Sunday Labs and medication were reviewed.. Continue same treatment. Continue with symptomatic treatment. Resume home medication. Monitor lytes and vitals. DVT and GI prophylaxis. Further recommendations depends on the clinical course of the patient DVT prophylaxis: Subcutaneous heparin GI Prophylaxis: Pepcid Prognosis is guarded
[2021-01-17] MEDS ORDERED: ONDANSETRON 4 MG/2 ML VIAL IVP PRN (16:04)
[2021-01-17 16:35] LABS: Glucose,Whole Blood 156 mg/dL (75-99)
--- NOTE | 2021-01-17 16:49 | P.PN ---
Subjective Progress Note Date: 01/17/21 Principal diagnosis: nausea and vomiting 65-year-old female who was admitted with acute onset of nausea, vomiting, diarrhea and hypertension. Her symptoms have resolved. She has a history of persistent constipation. On the hospital she was noted to have elevated troponins and cardiology has been following, patient underwent cardiac catheterization this morning with stenting. She is denying any abdominal pain. Denies any bowel movements. She was started on MiraLAX. Objective - Vital Signs Vital signs: Vital Signs Temp 97.7 F 01/17/21 05:00 Pulse 67 01/17/21 05:00 Resp 16 01/17/21 09:55 BP 87/51 01/17/21 10:19 Pulse Ox 90 L 01/17/21 09:55 Intake & Output 01/16/21 01/17/21 01/17/21 18:59 06:59 18:59 Intake Total 660 100 Output Total 1200 900 Balance -540 -900 100 Weight 84.5 kg Intake: IV 100 Oral 660 Output: Urine 1200 900 Other: Voiding Method Toilet Toilet # Voids 1 - Exam General appearance: The patient is alert, oriented, appears in no acute distress. HET: Head is normocephalic and atraumatic. Conjunctiva pink. Sclera anicteric. Neck: Supple without lymphadenopathy. Abdomen: Soft, nontender, nondistended with bowel sounds. No guarding or rig idity. Extremities: Normal skin color and turgor. No pedal edema Skin: No rashes, no jaundice Neurological: No focal deficits. Alert and oriented 3. - Labs CBC & Chem 7: 01/16/21 07:32 01/17/21 11:03 Labs: Abnormal Lab Results - Last 24 Hours (Table) 01/16/21 01/16/21 01/17/21 Range/Units 17:01 20:27 02:03 POC Glucose (mg/dL) 104 H 159 H 162 H (75-99) mg/dL Urine Blood (Negative) Ur Leukocyte Esterase (Negative) Urine Bacteria (None) /hpf 01/17/21 Range/Units 05:11 POC Glucose (mg/dL) (75-99) mg/dL Urine Blood Large H (Negative) Ur Leukocyte Esterase Small H (Negative) Urine Bacteria Occasional H (None) /hpf Assessment and Plan (1) Nausea vomiting and diarrhea Narrative/Plan: acute onset nausea vomiting and diarrhea which has resolved. Possible viral gastroenteritis. Current Visit: Yes Status: Acute Code(s): R11.2 - NAUSEA WITH VOMITING, UNSPECIFIED; R19.7 - DIARRHEA, UNSPECIFIED SNOMED Code(s): 7920984 (2) Elevated troponin I level Narrative/Plan: Cardiology following, patient underwent cardiac catheterization with stenting. Current Visit: Yes Status: Acute Code(s): R77.8 - OTHER SPECIFIED ABNORMALITIES OF PLASMA PROTEINS SNOMED Code(s): 165451122 (3) Chronic constipation Narrative/Plan: it has history of chronic constipation, MiraLAX ordered and patient instructed to take daily, may titrate up to 2 times a day. Current Visit: Yes Status: Acute Code(s): K59.09 - OTHER CONSTIPATION SNOMED Code(s): 487989771 Plan: 1. Continue regular diet 2. Continue MiraLAX daily and titrate for 1 bowel movement daily 3. High-fiber diet for. No plans on endoscopic evaluation 4. Thank you for this consultation, we will sign off at this time. Dr. Nona Troncoso I agree with the dictator's note, documented as a scribe by Cindi Gotti.
--- NOTE | 2021-01-17 17:49 | CDI ---
Documentation Clarification Form Date: 01/17/2021 05:31:25 PM From: Ángela Nuñez RN CCDS Admit Date: 01/13/2021 02:34:00 PM Patient Name: Kymberly Potts Visit Number: [id number] Discharge Date: ATTENTION: The Clinical Documentation Specialists (CDI) and [facility] Coding Staff appreciate your assistance in clarifying documentation. Please respond to the clarification below the line at the bottom and electronically sign. The CDI & [facility] Coding staff will review the response and follow-up if needed. Please note: Queries are made part of the Legal Health Record. If you have any questions, please contact the author of this message via ITS. Dr. Quach E Sheet Your patient has the documented diagnosis of unspecified Chronic CHF 01/13 through 01/17 in medicine H&P and progress notes. Additional information regarding the type of CHF is requested. History/Risk Factors: 65-year-old female presented to the ED feeling lightheaded, dizzy and a blood pressure of 51/55 checked by . Medical history: DM with insulin pump, CABG, HLD, HTN, CAD and Hypothyroidsim. Clinical Indicators: VS/Pulse OX: 01/13 B/P 79/49; HR 82; Temp 97.5 F Oral; RR 18; SpO2 96% RA BNP: 01/13 5950 Echocardiogram Results: 01/14 EF 25-30%. Right ventricle is severely enlarged. Trace to mild mitral regurgitation. Severe tricuspid regurgitation. Severe pulmonary hypertension. Chest X Ray: 01/13 No significant change since the prior exam. Treatment: 01/14 Lasix 20mg PO Daily KATHLEEN to current; 01/13 Coreg 3.125mg PO BID w/meals KATHLEEN changed 01/16 Coreg 6.25mg PO BID w/meal KATHLEEN to current. In your professional opinion, can you please clarify the [acuity and type] of CHF if known? [ ] Chronic Systolic Heart Failure (reduced EF) [ ] Other, please specify [ ] Unable to determine (Template Last Revised: July 2020) Chronic Systolic Heart Failure MTDD
[2021-01-17 20:13] LABS: Glucose,Whole Blood 151 mg/dL (75-99)
--- NOTE | 2021-01-17 20:24 | P.GSCN ---
History of Present Illness Consult date: 01/17/21 Reason for Consult: Gross hematuria History of present illness: this is a a 65 yo female admitted to the hospital with elevated troponin, suspi martha for non-ST elevation [place], she underwent a cardiac cath this a.m. She indicated she has noticed multiple episodes of intermittent gross hematuria for the last 24 hours. No previous history of gross hematuria. Denies any flank pain or history of stones. She is currently on aspirin 325 and Plavix. No family history of malignancies, denies any voiding issues a baseline. Her UA during this hospitalization is only significant for 5 RBCs. Review of Systems - Constitutional Denies fever, Denies weight loss - EENT Ears, nose, mouth and throat: Denies dysphagia - Cardiovascular Denies chest pain, Denies shortness of breath - Respiratory Denies cough, Denies 7 - Gastrointestinal Reports as per HPI - Genitourinary Genitourinary: Reports hematuria, Denies dysuria, Denies flank pain - Neurological Denies headaches, Denies syncope Past Medical History Past Medical History: Heart Failure, Diabetes Mellitus, GERD/Reflux, Hyperlipidemia, Hypertension, Myocardial Infarction ([place]), Thyroid Disorder Additional Past Medical History / Comment(s): Fribrosis in september 2020 Last Myocardial Infarction Date:: 2001 History of Any Multi-Drug Resistant Organisms: None Reported Past Surgical History: Section, Coronary Bypass/CABG, Hysterectomy, Tubal Ligation Additional Past Surgical History / Comment(s): cataract surgery, hand surgery Past Anesthesia/Blood Transfusion Reactions: Postoperative Nausea & Vomiting (PONV) Past Psychological History: Anxiety Smoking Status: Never smoker Past Alcohol Use History: Rare Past Drug Use History: None Reported - Past Family History Father Family Medical History: Myocardial Infarction ([place]) Brother(s) Additional Family Medical History / Comment(s): Heart surgery Medications and Allergies Home Medications Medication Instructions Recorded Confirmed Type LORazepam [Ativan] 1 mg PO HS 02/02/14 01/13/21 History Omeprazole [PriLOSEC] 40 mg PO HS 02/02/14 01/13/21 History Aspirin EC [Ecotrin Low Dose] 81 mg PO DAILY 11/12/20 01/13/21 History Atorvastatin [Lipitor] 20 mg PO HS 11/12/20 01/13/21 History Cholecalciferol [Vitamin D3 (25 50 mcg PO HS 11/12/20 01/13/21 History Mcg = 1000 Iu)] Docusate [Colace] 100 mg PO DAILY PRN 11/12/20 01/13/21 History Insulin Aspart (For Pump) [NovoLOG 0.01 unit SQ-PUMP CONTINUOUS 11/12/20 01/13/21 History (For Pump)] Levothyroxine Sodium [Synthroid] 100 mcg PO MOTUWETHFRSA 11/12/20 01/13/21 History Montelukast [Singulair] 10 mg PO DAILY 11/12/20 01/13/21 History Multivit with Calcium,Iron,Min 1 tab PO HS 11/12/20 01/13/21 History [Women's Multivitamin] Sacubitril/Valsartan [Entresto 49 1 tab PO BID 11/12/20 01/13/21 History mg-51 mg Tablet] diphenhydrAMINE HCL [Benadryl] 50 mg PO HS 11/12/20 01/13/21 History buPROPion HCL [buPROPion HCL Xl] 150 mg PO DAILY 12/23/20 01/13/21 History polyethylene glycoL 3350 [Miralax] 17 gm PO DAILY PRN #15 packet 12/25/20 01/13/21 Rx Carvedilol [Coreg] 3.125 mg PO BID 01/13/21 01/13/21 History Cyclobenzaprine [Flexeril] 10 mg PO BID 01/13/21 01/13/21 History Furosemide [Lasix] 20 mg PO DAILY 01/13/21 01/13/21 History Metoclopramide HCl [Reglan] 5 mg PO TID PRN 01/13/21 01/13/21 History Allergies Allergy/AdvReac Type Severity Reaction Status Date / Time adhesive Allergy Unknown Verified 01/13/21 11:57 latex Allergy Unknown Verified 01/13/21 11:57 amoxicillin [From Augmentin] AdvReac Nausea & Verified 01/13/21 11:57 Vomiting clarithromycin [From Biaxin] AdvReac Nausea & Verified 01/13/21 11:57 Vomiting clavulanic acid AdvReac Nausea & Verified 01/13/21 11:57 [From Augmentin] Vomiting codeine AdvReac Nausea & Verified 01/13/21 11:57 Vomiting nitrofurantoin AdvReac Nausea & Verified 01/13/21 11:57 [From Macrobid] Vomiting Surgical - Exam Vital Signs Temp Pulse Resp BP Pulse Ox 97.5 F L 82 18 79/49 96 01/13/21 11:15 01/13/21 11:15 01/13/21 11:15 01/13/21 11:15 01/13/21 11:15 - General well developed, well nourished, no distress, no pain - Eyes PERRL, normal ocular movement - ENT normal nares, normal mucosa - Respiratory normal expansion, normal respiratory effort - Abdomen Abdomen: soft, non tender - Psychiatric oriented to time, oriented to person, oriented to place, speech is normal Results - Labs 01/16/21 07:32 01/17/21 11:03 Abnormal Lab Results - Last 24 Hours (Table) 01/16/21 01/17/21 01/17/21 Range/Units 20:27 02:03 05:11 Sodium (137-145) mmol/L Chloride (98-107) mmol/L Glucose (74-99) mg/dL POC Glucose (mg/dL) 159 H 162 H (75-99) mg/dL Calcium (8.4-10.2) mg/dL Urine Blood Large H (Negative) Ur Leukocyte Esterase Small H (Negative) Urine Bacteria Occasional H (None) /hpf 01/17/21 01/17/21 01/17/21 Range/Units 11:03 11:35 16:33 Sodium 128 L (137-145) mmol/L Chloride 97 L (98-107) mmol/L Glucose 237 H (74-99) mg/dL POC Glucose (mg/dL) 206 H 156 H (75-99) mg/dL Calcium 8.3 L (8.4-10.2) mg/dL Urine Blood (Negative) Ur Leukocyte Esterase (Negative) Urine Bacteria (None) /hpf 01/17/21 Range/Units 20:12 Sodium (137-145) mmol/L Chloride (98-107) mmol/L Glucose (74-99) mg/dL POC Glucose (mg/dL) 151 H (75-99) mg/dL Calcium (8.4-10.2) mg/dL Urine Blood (Negative) Ur Leukocyte Esterase (Negative) Urine Bacteria (None) /hpf Diabetes panel 01/17/21 Range/Units 11:03 Sodium 128 L (137-145) mmol/L Potassium 5.1 (3.5-5.1) mmol/L Chloride 97 L (98-107) mmol/L Carbon Dioxide 26 (22-30) mmol/L BUN 12 (7-17) mg/dL Creatinine 0.71 (0.52-1.04) mg/dL Glucose 237 H (74-99) mg/dL Calcium 8.3 L (8.4-10.2) mg/dL Calcium panel 01/17/21 Range/Units 11:03 Calcium 8.3 L (8.4-10.2) mg/dL Pituitary panel 01/17/21 Range/Units 11:03 Sodium 128 L (137-145) mmol/L Potassium 5.1 (3.5-5.1) mmol/L Chloride 97 L (98-107) mmol/L Carbon Dioxide 26 (22-30) mmol/L BUN 12 (7-17) mg/dL Creatinine 0.71 (0.52-1.04) mg/dL Glucose 237 H (74-99) mg/dL Calcium 8.3 L (8.4-10.2) mg/dL Adrenal panel 01/17/21 Range/Units 11:03 Sodium 128 L (137-145) mmol/L Potassium 5.1 (3.5-5.1) mmol/L Chloride 97 L (98-107) mmol/L Carbon Dioxide 26 (22-30) mmol/L BUN 12 (7-17) mg/dL Creatinine 0.71 (0.52-1.04) mg/dL Glucose 237 H (74-99) mg/dL Calcium 8.3 L (8.4-10.2) mg/dL Assessment and Plan Assessment: 65-year-old female with multiple episode of gross hematuria, no previous history of gross hematuria. She is on aspirin and Plavix. Discussed with her recommend a hematuria workup. -We'll obtain a CT abdomen and pelvis, we'll do a noncontrasted study given her recent cardiac cath -She will need a cystoscopy as an outpatient
[2021-01-17] MEDS: ATORVASTATIN 40 MG TAB PO SCH (20:37)
[2021-01-17] MEDS: LORazepam 1 MG TAB PO PRN (20:37)
--- NOTE | 2021-01-18 00:51 | CT ---
EXAMINATION TYPE: CT abdomen pelvis wo con DATE OF EXAM: 01/17/2021 COMPARISON: None HISTORY: Gross hematuria CT DLP: 809.9 mGycm Automated exposure control for dose reduction was used. Images obtained from the diaphragm to the floor the pelvis without contrast. There is an enlarged heart. There is moderate interstitial infiltrate in the lower lung nguyễn. Ther e is no pericardial effusion. There is no pleural effusion. Liver and spleen are intact. The bile ducts are not dilated. The stomach is intact. I see no evidence of a pancreatic mass. There is some contrast in the gallbladder that is probably vicarious excretion . There is some contrast in both kidneys. There is no hydronephrosis. Ureters are not dilated. There is no retroperitoneal adenopathy. I see no evidence of a renal mass. There is smooth distention of th e urinary bladder. I see no evidence of a bladder mass. The bladder is filled with contrast material. There is no inguinal hernia. There is some perirectal fat stranding and presacral fluid. There is tu bular structure posterior to the cecum that could be air-filled appendix. This measures 7 mm. The lumbar vertebra have normal alignment. There is no compression fracture. There is vacuum disc at L4-5. The bony pelvis is intact. The hip joints are intact. There is mild subcutaneous edema around the abdomen. IMPRESSION: There is minimal ascites fluid. Subcutaneous edema. Moderately severe cardiomegaly. Extensive pulmona ry interstitial infiltrates could relate to pulmonary fibrosis. No pleural fluid seen to suggest hear t failure. No renal mass or obstruction. I do not see a cause for hematuria.
[2021-01-18 02:05] LABS: Glucose,Whole Blood 115 mg/dL (75-99)
[2021-01-18 06:07] LABS: Glucose,Whole Blood 114 mg/dL (75-99)
[2021-01-18] MEDS: INSULIN PUMP MEAL BOLUS 1 UNIT MISC MISCELLANE SCH ×4 (06:20→21:00)
[2021-01-18] MEDS: carvediloL 6.25 MG TAB PO SCH ×2 (06:21→17:57)
[2021-01-18] MEDS: LEVOTHYROXINE 100 MCG TAB PO SCH (06:21)
[2021-01-18] MEDS ORDERED: FUROSEMIDE 10 MG/ML 4 ML VIAL IV STA (08:53)
[2021-01-18] MEDS: FUROSEMIDE 20 MG TAB PO SCH (09:28)
[2021-01-18 09:35] LABS: Basophils % (A) 0 %; Eosinophils # (A) 0.1 k/uL (0-0.7); Eosinophils % (A) 2 %; HCT 35.6 % (34.0-46.0); HGB 11.2 gm/dL (11.4-16.0); Lymphocytes # (A) 0.4 k/uL (1.0-4.8); Lymphocytes % (A) 11 %; MCH 34.3 pg (25.0-35.0); MCHC 31.4 g/dL (31.0-37.0); Macrocytosis Marked; Mean Platelet Volume 7.9; Monocytes # (A) 0.4 k/uL (0-1.0); Monocytes % (A) 9 %; Neutrophils # (A) 3.1 k/uL (1.3-7.7); Neutrophils % (A) 76 %; Platelet Count 143 k/uL (150-450); RBC 3.26 m/uL (3.80-5.40); RDW 13.4 % (11.5-15.5)
[2021-01-18] MEDS: ASPIRIN 81 MG PO SCH (09:41)
[2021-01-18] MEDS: buPROPion XL 150 MG TAB.ER.24H PO SCH (09:41)
[2021-01-18] MEDS: MONTELUKAST 10 MG TAB PO SCH (09:41)
[2021-01-18] MEDS: FAMOTIDINE 20 MG TAB PO SCH ×2 (09:42→20:58)
[2021-01-18] MEDS: CLOPIDOGREL 75 MG TAB PO SCH (09:42)
[2021-01-18] MEDS: CYCLOBENZAPRINE 10 MG TAB PO SCH ×2 (09:42→20:58)
[2021-01-18] MEDS: HEPARIN SODIUM,PORCINE/PF 5,000 UNIT/0.5 ML SYRINGE SQ SCH ×2 (09:43→20:58)
[2021-01-18 09:50] LABS: African American GFR (CKD) >90 (>60 ml/min/1.73 sqM); Anion Gap 3 mmol/L; Blood Urea Nitrogen 9 mg/dL (7-17); Calcium 8.5 mg/dL (8.4-10.2); Carbon Dioxide 28 mmol/L (22-30); Chloride 98 mmol/L (98-107); Glucose 205 mg/dL (74-99); Non-African American GFR(CKD) >90 (>60 ml/min/1.73 sqM); Potassium 4.4 mmol/L (3.5-5.1); Sodium 129 mmol/L (137-145)
[2021-01-18 09:52] LABS: MCV 109.2 fL (80.0-100.0)
--- NOTE | 2021-01-18 10:09 | ECHOF ---
Referral Reason:Repeat after cath MEASUREMENTS -------- HEIGHT: 167.6 cm WEIGHT: 84.4 kg BP: IVSd: 1.5 cm (0.6 - 1.1) LVIDd: 4.2 cm (3.9 - 5.3) LVPWd: 1.4 cm (0.6 - 1.1) IVSs: 1.7 cm LVIDs: 2.7 cm LVPWs: 1.9 cm FINDINGS -------- Limited for LV function. Overall left ventricular systolic function is moderate-severely impaired with, an EF between 30 - 35 %. There is no pericardial effusion. CONCLUSIONS -------- 1. Limited for LV function. 2. Overall left ventricular systolic function is moderate-severely impaired with, an EF between 30 - 35 %. 3. There is no pericardial effusion. SWIMMING POOL MAINTENANCE: Rae Powers RDCS
[2021-01-18] MEDS: SACUBITRIL/VALSARTAN 49 MG-51 MG TABLET PO SCH ×2 (11:24→20:58)
[2021-01-18 11:43] LABS: Glucose,Whole Blood 193 mg/dL (75-99)
--- NOTE | 2021-01-18 12:50 | P.PN ---
Subjective This is a pleasant 65-year-old female patient who follows with Dr. Ashby. She has a history of four-vessel CABG in 2001, ischemic cardiomyopathy with a known ejection fraction of about 35% according to the patient, status post AICD in 2017, hypertension, hyperlipidemia, pulmonary fibrosis, and diabetes mellitus. She presented to the emergency department with complaints of nausea and vomiting as well as hypotension and weakness. She had mild troponin elevation. She had an echocardiogram that revealed ejection fraction 20-30% with severe tricuspid regurgitation severe pulmonary hypertension. Cardiac catheterization was recommended. Patient underwent cardiac catheterization with Dr. Thompson on 01/17 with PCI SVG to the right PDA. After the procedure when back on the unit she did become hypotensive pressure 70s/50s she recieved 1L Bolus of fluid. Limited echo revealed an EF of 30-35%, no pericardial effusion. This morning she seen and examined at bedside, no acute distress. She denies any chest pain, shortness of breath, lightheadedness, dizziness, palpitations. Her blood pressures improved BP 122/60, heart rate 74, afebrile, maintaining oxygen saturations on room air. Telemetry reviewed-WBC 4.0, hemoglobin 11.2, platelets 143, sodium 129, potassium 4.4, serum creatinine 0.6. Patient did have episode of hematuria yesterday. CT Abdomen and Pelvix was completed which revealed minimal ascites fluid, mild subcutaneous edema around abdomen. Extensive pulmonary interstitial infiltrates related to pulmonary fibrosis. No pleural fluid seen to suggest heart failure. No renal mass or obstruction. GENERAL: Well-appearing, well-nourished and in no acute distress. NECK: Supple without JVD or thyromegaly. LUNGS: Breath sounds mild crackles in the bases. Respiration equal and unlabored. No wheezes, rales or rhonchi. HEART: Regular rate and rhythm S1 and S2 heard. Systolic murmur noted EXTREMITIES: Normal range of motion, no edema. No clubbing or cyanosis. Peripheral pulses intact. Right femoral cath site clean dry, no hematoma 2+ pulses ASSESSMENT: NSTEMI Coronary artery disease s/p 4 vessel CABG 2001 Ischemic cardiomyopathy s/p AICD in 2017 Hypertension Hyperlipidemia Pulmonary fibrosis Type 2 Diabetes PLAN: From a cardiology perspective we will continue current medical therapy with aspirin, plavix, statin, beta stephanie, and Entresto. Patient is hemodynamically stable to be discharged home pending other consult services recommendations. Recommend close follow up with her primary guest associate Dr. Ashby Objective - Vital Signs Vital signs: Vital Signs Temp 97.5 F L 01/18/21 05:00 Pulse 62 01/18/21 05:00 Resp 18 01/18/21 05:00 BP 136/83 01/18/21 05:00 Pulse Ox 99 01/18/21 05:00 Intake & Output 01/17/21 01/18/21 01/18/21 18:59 06:59 18:59 Intake Total 880 Output Total 400 670 Balance 480 -670 Weight 84.5 kg 87.4 kg Intake: IV 100 Oral 780 Output: Urine 400 670 Other: Voiding Method Bedside Commode Toilet # Voids 1 1 - Labs CBC & Chem 7: 01/18/21 08:58 01/18/21 08:58 Labs: Abnormal Lab Results - Last 24 Hours (Table) 01/17/21 01/17/21 01/17/21 Range/Units 11:03 11:35 16:33 Sodium 128 L (137-145) mmol/L Chloride 97 L (98-107) mmol/L Glucose 237 H (74-99) mg/dL POC Glucose (mg/dL) 206 H 156 H (75-99) mg/dL Calcium 8.3 L (8.4-10.2) mg/dL 01/17/21 01/18/21 01/18/21 Range/Units 20:12 01:54 06:05 Sodium (137-145) mmol/L Chloride (98-107) mmol/L Glucose (74-99) mg/dL POC Glucose (mg/dL) 151 H 115 H 114 H (75-99) mg/dL Calcium (8.4-10.2) mg/dL
--- NOTE | 2021-01-18 12:50 | P.PN ---
Subjective this is a pleasant 65 years old female with past medical history of diabetes mellitus, hypertension, hyperlipidemia, GERD, hypothyroidism. Also she has history of coronary artery disease status post CABG at age 45. She follows up with visual coordinator Dr. Briggs for she is on insulin pump. Her cardiac nurse practitioner is Dr. Moreno. Her forest aide is Dr. Le and she is on home oxygen of 2 L Presents with hypotension episode. This morning patient had about 4-5 bouts of diarrhea, her give her gatorade she vomited it immediately. She felt some stomach upset and undressed but no abdominal pain or chest pain. No fever. No urinary complaints or dysuria. She felt lightheadedness and dizzy Her blood pressure when checked by her was 51/35, so patient does not look her blood pressure medication in the morning and came to emergency room She denies smoking, alcohol or illicit drugs On admission she was hypotensive 79/49, her blood pressure improved to 1:30/73. Her oxygen saturation is 100% on room air and patient is afebrile Labs show an unremarkable CBC, her sodium is low at 129, potassium was high at 5.5 but sample was hemolyzed Creatinine at 0.9, GFR is 67 Troponin is elevated at 0.04 Bilirubin is 1.9, AST slightly up at 55, ALT is normal at 26 Echocardiogram 2 months ago on 11/12/20 showing ejection fraction of 30-35% with severe tricuspid regurgitation and severe pulmonary hypertension EKG showing ectopic atrial rhythm at 87 with right bundle branch block and QTC is 507 Chest x-ray: No acute changes In the emergency room she received 1 L of normal saline 01/14/2021 Patient clinically doing well with no symptoms today. No chest pain or dyspnea or dizziness.her diarrhea improved She is hemodynamically stable, patient is currently on Coreg and cardiac nurse practitioner team are planning to restart her home dose of entersto Echocardiogram showed ejection fraction of 25-30% with severe tricuspid regurgitation and pulmonary hypertension. Currently maintained on aspirin 81 mg on subcutaneous heparin. Cardiology on the case and the recommend keep monitoring for 24-48 hours. Patient will need to follow-up with her cardiac nurse practitioner Dr. Moreno as an outpatient 01/15/2021 Patient with no symptoms at rest, she reports some exertional dyspnea which looks mild. Her nausea vomiting and diarrhea has resolved. Hemodynamically she is a stable. Sodium improved to 133, potassium tendon back to normal at 4.1. Glucose is around 200 however it wasn't 60 yesterday afternoon, patient and has been at bedside Mrs. Anna is, for her and has been going on for years, was instructed to use snacks around noontime R Han sugar drops less than 70 and she agrees. She is back on Coreg and entrance to Echocardiogram showing ejection fraction 25-30% with severe tricuspid regurgitation and pulmonary hypertension, as per patient and her ejection fraction was 35% one week earlier when she checked it with Dr. Moreno neurologist Patient and states this is the third hospitalization in 2 months Hospitalist Physician team may consider cardiac cath, we will defer this to the recommendation 01/16/2021 Patient still with some mild exertional dyspnea but no chest pain. She is comfortable in her bed currently. Vital stable, labs are stable. She remains on aspirin 81 mg daily which is her home aspirin Planned for cardiac cath tomorrow with cardiac nurse practitioner team 01/17/2021 Patient underwent cardiac cath today showed severe triple-vessel coronary artery disease, where she underwent successful stenting of the body of the saphenous vein graft to the right PDA with reduction of stenosis from 99% to less than 5%. Postprocedure she is fully awake and oriented, with no chest pain or dyspnea. Postprocedure her blood pressure was on the low side 78/54 and a bolus of normal saline is provided. Patient remains fully awakened asymptomatic Continue with aspirin and Plavix Yesterday patient reported some blood in the urine, urine analysis large urinary blood and small leukocyte esterase. We will check bladder scan and urology consult She is currently On normal saline at 75 mL/h 01/18/2021 Patient symptoms significantly improved, she is awake. No chest pain. She has mild exertional dyspnea with no coughing. Her blood pressure is stable today Yesterday she was hypotensive and received IV normal saline. He has basal crepitation and 1 dose of Lasix is a provided. Hospitalist Physician O on the case, She remains on aspirin and Plavix Her ejection fraction showing 25-30% for severe tricuspid regurgitation and pulmonary hypertension CT of the abdomen and pelvis is unremarkable, therefore urological problem ordered by the urology service. Neurologist wants to see the patient as outpatient setting for her hematuria for possible further workup, patient informed and she agrees Objective - Vital Signs Vital signs: Vital Signs Temp 98 F 01/18/21 11:23 Pulse 65 01/18/21 11:23 Resp 16 01/18/21 11:23 BP 138/74 01/18/21 11:23 Pulse Ox 96 01/18/21 11:23 Intake & Output 01/17/21 01/18/21 01/18/21 18:59 06:59 18:59 Intake Total 880 480 Output Total 400 670 900 Balance 480 -670 -420 Weight 84.5 kg 87.4 kg Intake: IV 100 Oral 780 480 Output: Urine 400 670 900 Other: Voiding Method Bedside Commode Toilet Toilet # Voids 1 1 - Exam GENERAL: The patient is alert and oriented x3, not in any acute distress. Well developed, well nourished. HEENT: Pupils are round and equally reacting to light. EOMI. No scleral icterus. No conjunctival pallor. Normocephalic, atraumatic. No pharyngeal erythema. No thyromegaly. CARDIOVASCULAR: S1 and S2 present. No murmurs, rubs, or gallops. PULMONARY: Chest is clear to auscultation, no wheezing or crackles. ABDOMEN: Soft, nontender, nondistended, normoactive bowel sounds. No palpable organomegaly. MUSCULOSKELETAL: No joint swelling or deformity. EXTREMITIES: No cyanosis, clubbing, or pedal edema. NEUROLOGICAL: Gross neurological examination did not reveal any focal deficits. SKIN: No rashes. no petechiae. - Labs CBC & Chem 7: 01/18/21 08:58 01/18/21 08:58 Labs: Abnormal Lab Results - Last 24 Hours (Table) 01/17/21 01/17/21 01/18/21 Range/Units 16:33 20:12 01:54 RBC (3.80-5.40) m/uL Hgb (11.4-16.0) gm/dL MCV (80.0-100.0) fL Plt Count (150-450) k/uL Lymphocytes # (1.0-4.8) k/uL Macrocytosis Sodium (137-145) mmol/L Glucose (74-99) mg/dL POC Glucose (mg/dL) 156 H 151 H 115 H (75-99) mg/dL 01/18/21 01/18/21 01/18/21 Range/Units 06:05 08:58 08:58 RBC 3.26 L (3.80-5.40) m/uL Hgb 11.2 L (11.4-16.0) gm/dL MCV 109.2 H (80.0-100.0) fL Plt Count 143 L (150-450) k/uL Lymphocytes # 0.4 L (1.0-4.8) k/uL Macrocytosis Marked A Sodium 129 L (137-145) mmol/L Glucose 205 H (74-99) mg/dL POC Glucose (mg/dL) 114 H (75-99) mg/dL 01/18/21 Range/Units 11:39 RBC (3.80-5.40) m/uL Hgb (11.4-16.0) gm/dL MCV (80.0-100.0) fL Plt Count (150-450) k/uL Lymphocytes # (1.0-4.8) k/uL Macrocytosis Sodium (137-145) mmol/L Glucose (74-99) mg/dL POC Glucose (mg/dL) 193 H (75-99) mg/dL Assessment and Plan Assessment: Elevated troponin, suspicious for non-ST elevation [place] per cardiac nurse practitioner service. Secondary to severe triple-vessel coronary artery disease, status post stenting of the body of the saphenous vein graft to the right PDA Cardiomyopathy with ejection fraction of 25-30%, with possible slight worsening Severe tricuspid regurgitation with severe pulmonary hypertension hematuria Mild hypovolemic hyponatremia at 129 could be related to hypotension. Improved 1 episode of vomiting with one-day diarrhea, suspicious for acute gastroenteritis versus food poisoning. Improved Chronic congestive heart failure, ejection fraction 30-35% Possible chronic kidney disease stage III diabetes mellitus with hyperglycemia Hypertension, patient was hypotensive on admission Hyperlipidemia Hypothyroidism History of GERD Plan: This is a pleasant 65 years old female who presents with an episode of non- STEMI, status post stent to right PDA Continue with aspirin and Plavix Resume Coreg and entresto , Cardiology consult on the case Continue Lasix oral daily Urology consult Continue insulin pump Cardiac cath on Sunday Labs and medication were reviewed.. Continue same treatment. Continue with symptomatic treatment. Resume home medication. Monitor lytes and vitals. DVT and GI prophylaxis. Further recommendations depends on the clinical course of the patient DVT prophylaxis: Subcutaneous heparin GI Prophylaxis: Pepcid Prognosis is guarded
--- NOTE | 2021-01-18 16:46 | P.PN ---
Progress Note - Text Progress Note Date: 01/18/21 No acute overnight events. She underwent a CT abdomen and pelvis, showed no upper tract pathology. Reviewed the CT and discussed the finding with the patient. At this time discussed with her the next step is to obtain a cystoscopy, we'll schedule her for cystoscopy as an outpatient.
[2021-01-18 16:50] LABS: Glucose,Whole Blood 130 mg/dL (75-99)
[2021-01-18 19:56] LABS: Glucose,Whole Blood 142 mg/dL (75-99)
[2021-01-18] MEDS: ATORVASTATIN 40 MG TAB PO SCH (20:58)
[2021-01-18] MEDS: LORazepam 1 MG TAB PO PRN (21:03)
[2021-01-19 05:57] LABS: Glucose,Whole Blood 187 mg/dL (75-99)
[2021-01-19 06:14] LABS: Glucose,Whole Blood 136 mg/dL (75-99)
[2021-01-19] MEDS: LEVOTHYROXINE 100 MCG TAB PO SCH (06:22)
[2021-01-19] MEDS: carvediloL 6.25 MG TAB PO SCH (06:22)
[2021-01-19 06:54] LABS: African American GFR (CKD) >90 (>60 ml/min/1.73 sqM); Anion Gap 5 mmol/L; Blood Urea Nitrogen 8 mg/dL (7-17); Calcium 8.5 mg/dL (8.4-10.2); Carbon Dioxide 29 mmol/L (22-30); Chloride 97 mmol/L (98-107); Glucose 138 mg/dL (74-99); Magnesium 1.8 mg/dL (1.6-2.3); Non-African American GFR(CKD) >90 (>60 ml/min/1.73 sqM); Potassium 4.1 mmol/L (3.5-5.1); Sodium 131 mmol/L (137-145)
[2021-01-19 08:03] VITALS: BP 131/63; PULSE 67; RESP 16; TEMP 97.4
[2021-01-19] MEDS: INSULIN PUMP MEAL BOLUS 1 UNIT MISC MISCELLANE SCH (08:05)
[2021-01-19] MEDS: buPROPion XL 150 MG TAB.ER.24H PO SCH (08:06)
[2021-01-19] MEDS: ASPIRIN 81 MG PO SCH (08:06)
[2021-01-19] MEDS: CLOPIDOGREL 75 MG TAB PO SCH (08:06)
[2021-01-19] MEDS: MONTELUKAST 10 MG TAB PO SCH (08:07)
[2021-01-19] MEDS: FUROSEMIDE 20 MG TAB PO SCH (08:07)
[2021-01-19] MEDS: FAMOTIDINE 20 MG TAB PO SCH (08:07)
[2021-01-19] MEDS: SACUBITRIL/VALSARTAN 49 MG-51 MG TABLET PO SCH (08:07)
[2021-01-19] MEDS: CYCLOBENZAPRINE 10 MG TAB PO SCH (08:07)
[2021-01-19] MEDS: HEPARIN SODIUM,PORCINE/PF 5,000 UNIT/0.5 ML SYRINGE SQ SCH (08:07)
--- NOTE | 2021-01-20 22:16 | P.DS ---
Providers Date of admission: 01/13/21 14:34 Attending physician: Main Renee MD Consults: 01/13/21 14:35 Consult Physician Urgent Consulting Provider: Lakia Thompson Consult Reason/Comments: Elevated troponin,periods of hypotension Do you want consulting provider notified?: Yes 01/17/21 08:56 Consult Physician Routine Consulting Provider: [facility] Consult Reason/Comments: Post Interventional patient Do you want consulting provider notified?: Already Contacted 01/17/21 09:13 Consult Physician Routine Consulting Provider: Rey Cifuentes Consult Reason/Comments: blood in urine Do you want consulting provider notified?: Yes Primary care physician: Kevin Morris [facility] Course: Date of service 01/19/2021 Diagnoses: Elevated troponin, suspicious for non-ST elevation [place], Secondary to severe triple-vessel coronary artery disease, status post stenting of the body of the saphenous vein graft to the right PDA Cardiomyopathy with ejection fraction of 25-30% Severe tricuspid regurgitation with severe pulmonary hypertension hematuria, Improved but needs outpatient follow-up Possible chronic kidney disease stage III diabetes mellitus with hyperglycemia Hypertension, patient was hypotensive on admission Hyperlipidemia Hypothyroidism History of GERD Hospital course: this is a pleasant 65 years old female with past medical history of diabetes mellitus, hypertension, hyperlipidemia, GERD, hypothyroidism. Also she has history of coronary artery disease status post CABG at age 45. She follows up with homeowner association manager Dr. Briggs for she is on insulin pump. Her blackjack supervisor is Dr. Moreno. Her executive candidate developer is Dr. Le and she is on home oxygen of 2 L Presents with hypotension episode. With diarrhea and vomiting of one-day duration suspicious for mild gastroenteritis that is been resolved. On admission next day her vitals improved and patient and no chest pain but had some exertional dyspnea. Her troponin were mildly elevated. Echocardiogram showed ejection fraction of 25-30% with severe tricuspid regurgitation and pulmonary hypertension. Patient underwent cardiac cath today showed severe triple-vessel coronary artery disease, where she underwent successful stenting of the body of the saphenous vein graft to the right PDA with reduction of stenosis from 99% to less than 5%. Patient was started on aspirin and Plavix. Also patient developed some hematuria which is resolved prior to Discharge however CT of the abdomen and pelvis is unremarkable, therefore urologist recommended for patient to follow-up in the office outpatient setting for possible cystoscopy. Lanre contacted Dr. Cifuentes office, and they stated the office will call pt with appointment date/time. Risk of cancer explained for the patient On the day of discharge she denies chest pain or dyspnea. No coughing. No abdominal pain. No hematuria. No fever Both urologist and blackjack supervisor cleared the patient for discharge Problems and management plan were discussed with the patient and he verbalized understanding and acceptance Patient was found stable and can be discharged home however he needs follow-up as an outpatient. Patient was instructed to follow up with PCP within one week and patient agrees Patient was instructed to follow up with urologist Dr. Cifuentes in 10 days and she agrees to call and make appointment This patient agrees with appointment made for her with her blackjack supervisor Dr. Moreno on 02/01 stated she will follow up Physical exam Gen: patient is a AAOx3, no distress CVS: S1-S2, RRR, no murmur Lungs: B/L CTA, no wheezing Abdomen: soft, no distention, no tenderness, positive bowel sounds Extremity: no leg edema or induration Time spent more than 35 minutes Patient Condition at Discharge: Stable Plan - Discharge Summary Discharge Rx Participant: No New Discharge Prescriptions: New carvediloL [Coreg] 6.25 mg PO BID-W/MEALS 30 Days #60 tab Clopidogrel [Plavix] 75 mg PO DAILY 90 Days #90 tab Atorvastatin [Lipitor] 40 mg PO HS 30 Days #30 tab Continue Omeprazole [PriLOSEC] 40 mg PO HS LORazepam [Ativan] 1 mg PO HS Montelukast [Singulair] 10 mg PO DAILY Docusate [Colace] 100 mg PO DAILY PRN PRN Reason: Constipation Cholecalciferol [Vitamin D3 (25 Mcg = 1000 Iu)] 50 mcg PO HS Sacubitril/Valsartan [Entresto 49 mg-51 mg Tablet] 1 tab PO BID Levothyroxine Sodium [Synthroid] 100 mcg PO MOTUWETHFRSA Furosemide [Lasix] 20 mg PO DAILY Aspirin EC [Ecotrin Low Dose] 81 mg PO DAILY Multivit with Calcium,Iron,Min [Women's Multivitamin] 1 tab PO HS Insulin Aspart (For Pump) [NovoLOG (For Pump)] 0.01 unit SQ-PUMP CONTINUOUS buPROPion HCL [buPROPion HCL Xl] 150 mg PO DAILY polyethylene glycoL 3350 [Miralax] 17 gm PO DAILY PRN #15 packet PRN Reason: Constipation Metoclopramide HCl [Reglan] 5 mg PO TID PRN PRN Reason: Nausea Cyclobenzaprine [Flexeril] 10 mg PO BID Discontinued diphenhydrAMINE HCL [Benadryl] 50 mg PO HS Atorvastatin [Lipitor] 20 mg PO HS Carvedilol [Coreg] 3.125 mg PO BID Discharge Medication List LORazepam [Ativan] 1 mg PO HS 02/02/14 [History] Omeprazole [PriLOSEC] 40 mg PO HS 02/02/14 [History] Aspirin EC [Ecotrin Low Dose] 81 mg PO DAILY 11/12/20 [History] Cholecalciferol [Vitamin D3 (25 Mcg = 1000 Iu)] 50 mcg PO HS 11/12/20 [History] Docusate [Colace] 100 mg PO DAILY PRN 11/12/20 [History] Insulin Aspart (For Pump) [NovoLOG (For Pump)] 0.01 unit SQ-PUMP CONTINUOUS 11/12/20 [History] Levothyroxine Sodium [Synthroid] 100 mcg PO MOTUWETHFRSA 11/12/20 [History] Montelukast [Singulair] 10 mg PO DAILY 11/12/20 [History] Multivit with Calcium,Iron,Min [Women's Multivitamin] 1 tab PO HS 11/12/20 [History] Sacubitril/Valsartan [Entresto 49 mg-51 mg Tablet] 1 tab PO BID 11/12/20 [History] buPROPion HCL [buPROPion HCL Xl] 150 mg PO DAILY 12/23/20 [History] polyethylene glycoL 3350 [Miralax] 17 gm PO DAILY PRN #15 packet 12/25/20 [Rx] Cyclobenzaprine [Flexeril] 10 mg PO BID 01/13/21 [History] Furosemide [Lasix] 20 mg PO DAILY 01/13/21 [History] Metoclopramide HCl [Reglan] 5 mg PO TID PRN 01/13/21 [History] Atorvastatin [Lipitor] 40 mg PO HS 30 Days #30 tab 01/18/21 [Rx] Clopidogrel [Plavix] 75 mg PO DAILY 90 Days #90 tab 01/18/21 [Rx] carvediloL [Coreg] 6.25 mg PO BID-W/MEALS 30 Days #60 tab 01/18/21 [Rx] Follow up Appointment(s)/Referral(s): Alexandra Brown MD [Primary Care Provider] - 1-2 days Rey Cifuentes MD [STAFF PHYSICIAN] - 10 Days (for cystoscopy. Office will call you with appointment date/time. ) Kristie Ambriz MD [REFERRING] - 02/01/21 3:45 pm (May call to schedule more recent appointment with [facility] in [facility]) Patient Instructions/Handouts: *Surgery [facility] - After Heart Catheterization - Television Audio Engineer Instructions, Heart Failure (DC) Activity/Diet/Wound Care/Special Instructions: Heart healthy diet Activity is limited till you see your doctor Discharge Disposition: HOME SELF-CARE
== END 2021-01-19 10:59 | disposition home or self-care (01) | DRG 247 ==
LOC: EC 11:13 → 3SCARD 14:34
PROVIDERS: ADMIT Internal Medicine; ATTEND Internal Medicine
PROC: 027035Z Dilation of Coronary Artery, One Artery with Two Drug-eluting Intraluminal Devices, Percutaneous Approach (ICD-10-PCS; principal; 2021-01-17 08:35)
PROC: B2111ZZ Fluoroscopy of Multiple Coronary Arteries using Low Osmolar Contrast (ICD-10-PCS; 2021-01-17 08:35)
PROC: B2131ZZ Fluoroscopy of Multiple Coronary Artery Bypass Grafts using Low Osmolar Contrast (ICD-10-PCS; 2021-01-17 08:35)
DX: I21.4 Non-ST elevation (NSTEMI) myocardial infarction (principal); I13.0 Hypertensive heart and chronic kidney disease with heart failure and stage 1 through stage 4 chronic kidney disease, or unspecified chronic kidney disease; E87.1 Hypo-osmolality and hyponatremia; I50.22 Chronic systolic (congestive) heart failure; Z96.41 Presence of insulin pump (external) (internal); R31.0 Gross hematuria; N18.9 Chronic kidney disease, unspecified; K59.09 Other constipation; J84.10 Pulmonary fibrosis, unspecified; I45.10 Unspecified right bundle-branch block; I35.1 Nonrheumatic aortic (valve) insufficiency; I27.20 Pulmonary hypertension, unspecified; I25.82 Chronic total occlusion of coronary artery; I25.5 Ischemic cardiomyopathy; I25.2 Old myocardial infarction; I25.10 Atherosclerotic heart disease of native coronary artery without angina pectoris; I07.1 Rheumatic tricuspid insufficiency; F41.9 Anxiety disorder, unspecified; E86.1 Hypovolemia; E86.0 Dehydration; E78.5 Hyperlipidemia, unspecified; E11.65 Type 2 diabetes mellitus with hyperglycemia; E11.22 Type 2 diabetes mellitus with diabetic chronic kidney disease; I95.9 Hypotension, unspecified; E03.9 Hypothyroidism, unspecified; K21.9 Gastro-esophageal reflux disease without esophagitis; Z95.810 Presence of automatic (implantable) cardiac defibrillator; Z95.5 Presence of coronary angioplasty implant and graft; Z95.1 Presence of aortocoronary bypass graft; Z90.710 Acquired absence of both cervix and uterus; Z82.49 Family history of ischemic heart disease and other diseases of the circulatory system; Z79.899 Other long term (current) drug therapy; Z79.890 Hormone replacement therapy; Z79.82 Long term (current) use of aspirin; Z79.4 Long term (current) use of insulin; Z79.02 Long term (current) use of antithrombotics/antiplatelets; Z98.891 History of uterine scar from previous surgery; Z98.51 Tubal ligation status; Z88.8 Allergy status to other drugs, medicaments and biological substances; Z91.048 Other nonmedicinal substance allergy status; Z91.040 Latex allergy status
CPT/HCPCS: 36415; 71046; 74176; 80048; 80053; 81001; 83735; 83880; 84145; 84484; 85025; 85610; 85730; 93005; 93306; 93308; 93459; 93567; 94760; 96361; 96374; 99285

== ENCOUNTER 2021-02-23 12:10 | Inpatient (IN) | payer MEDICARE ==
--- NOTE | 2021-02-23 12:50 | ED ---
General Adult HPI - General Chief complaint: Shortness of Breath Stated complaint: sent by implementation project manager Time Seen by Provider: 02/23/21 12:18 Source: patient Mode of arrival: wheelchair Limitations: no limitations - History of Present Illness Initial comments: Dictation was produced using exsulin dictation software. please excuse any grammatical, word or spelling errors. Chief Complaint: 65-year-old female sent in by implementation project manager for heart failure History of Present Illness: 65-year-old female she has extensive history of cardiac disease. She has had cardiac bypass and multiple coronary artery stents. She went to see her implementation project manager today for worsening dyspnea, weight gain. She sees Dr. Ambriz in [place]. She was evaluated there and told to come to the emergency department for admission for heart failure exacerbation. Patient states she feels short of breath especially with exertion. She denies any pain complaints at this time. Patient has been having weight gain over the last 7 days. She takes Lasix on a when necessary basis. She is directed to take oral Lasix 1 her weight is 2 pounds above a certain weight. She has been taking Lasix however with no improvement. The ROS documented in this emergency department record has been reviewed and confirmed by me. Those systems with pertinent positive or negative responses have been documented in the HPI. All other systems are other negative and/or noncontributory. PHYSICAL EXAM: General Impression: Alert and oriented x3, not in acute distress HEENT: Normocephalic atraumatic, extra-ocular movements intact, pupils equal and reactive to light bilaterally, mucous membranes moist. Cardiovascular: Heart regular rate and rhythm Chest: Able to complete full sentences, no retractions, no tachypnea, diffuse posterior inferior lung crackles Abdomen: abdomen soft, non-tender, non-distended, no organomegaly Musculoskeletal: Pulses present and equal in all extremities, 2+ pitting edema bilateral lower extremities Motor: no focal deficits noted Neurological: CN II-XII grossly intact, no focal motor or sensory deficits noted Skin: Intact with no visualized rashes Psych: Normal affect and mood ED course: 65-year-old female presents to the emergency department for heart failure exacerbation. All signs upon arrival are within acceptable limits. At rest patient does not appear to be in any acute respiratory distress. Laboratory evaluation obtained. CBC is unremarkable. Coag panel is negative. Metabolic panel shows sodium 123. Troponin is 0.127, brain natruretic peptide is 7840. Chest x-ray shows pulmonary venous congestion. Clinical presentation consistent with heart failure exacerbation. Patient given 40 mg of IV Lasix. She'll be admitted to observation under the care of [place] [facility] group cardiology consultation. Patient will benefit from gentle diuresis for treatment of heart failure. Patient has elevated troponin today however she is chronically elevated troponin. secondary to troponin leak. EKG interpretation: Ventricular rate 81, normal sinus rhythm, ND interval 152, QRS 126, QTC 480. No ND prolongation, no QTC prolongation, no ST or T-wave changes noted. EKG compared to 01/13/2021 showing no changes. Overall, this EKG is unremarkable - Related Data Home Medications Medication Instructions Recorded Confirmed LORazepam [Ativan] 1 mg PO HS 02/02/14 02/23/21 Omeprazole [PriLOSEC] 40 mg PO HS 02/02/14 02/23/21 Aspirin EC [Ecotrin Low Dose] 81 mg PO DAILY 11/12/20 02/23/21 Cholecalciferol [Vitamin D3 (25 50 mcg PO HS 11/12/20 02/23/21 Mcg = 1000 Iu)] Docusate [Colace] 100 mg PO DAILY PRN 11/12/20 02/23/21 Insulin Aspart (For Pump) [NovoLOG 0.01 unit SQ-PUMP CONTINUOUS 11/12/20 02/23/21 (For Pump)] Levothyroxine Sodium [Synthroid] 100 mcg PO MOTUWETHFRSA 11/12/20 02/23/21 Montelukast [Singulair] 10 mg PO DAILY 11/12/20 02/23/21 Multivit with Calcium,Iron,Min 1 tab PO HS 11/12/20 02/23/21 [Women's Multivitamin] Sacubitril/Valsartan [Entresto 49 1 tab PO BID 11/12/20 02/23/21 mg-51 mg Tablet] buPROPion HCL [buPROPion HCL Xl] 150 mg PO DAILY 12/23/20 02/23/21 Cyclobenzaprine [Flexeril] 10 mg PO BID 01/13/21 02/23/21 Furosemide [Lasix] 20 mg PO DAILY 01/13/21 02/23/21 Metoclopramide HCl [Reglan] 5 mg PO TID PRN 01/13/21 02/23/21 Atorvastatin [Lipitor] 20 mg PO HS 02/23/21 02/23/21 carvediloL [Coreg] 3.125 mg PO BID-W/MEALS 02/23/21 02/23/21 Previous Rx's Medication Instructions Recorded polyethylene glycoL 3350 [Miralax] 17 gm PO DAILY PRN #15 packet 12/25/20 Clopidogrel [Plavix] 75 mg PO DAILY 90 Days #90 tab 01/18/21 Allergies Allergy/AdvReac Type Severity Reaction Status Date / Time adhesive Allergy Unknown Verified 02/23/21 13:31 latex Allergy Unknown Verified 02/23/21 13:31 amoxicillin [From Augmentin] AdvReac Nausea & Verified 02/23/21 13:31 Vomiting clarithromycin [From Biaxin] AdvReac Nausea & Verified 02/23/21 13:31 Vomiting clavulanic acid AdvReac Nausea & Verified 02/23/21 13:31 [From Augmentin] Vomiting codeine AdvReac Nausea & Verified 02/23/21 13:31 Vomiting nitrofurantoin AdvReac Nausea & Verified 02/23/21 13:31 [From Macrobid] Vomiting Review of Systems ROS Statement: Those systems with pertinent positive or pertinent negative responses have been documented in the HPI. ROS Other: All systems not noted in ROS Statement are negative. Past Medical History Past Medical History: Coronary Artery Disease (CAD), Heart Failure, Diabetes Mellitus, GERD/Reflux, Hyperlipidemia, Hypertension, Myocardial Infarction (ND), Thyroid Disorder Additional Past Medical History / Comment(s): Fribrosis in september 2020 Last Myocardial Infarction Date:: 2001 History of Any Multi-Drug Resistant Organisms: None Reported Past Surgical History: Section, Coronary Bypass/CABG, Heart Catheterization With Stent, Hysterectomy, Tubal Ligation Additional Past Surgical History / Comment(s): cataract surgery, hand surgery, recent heart stent 02/12 Past Anesthesia/Blood Transfusion Reactions: Postoperative Nausea & Vomiting (PONV) Past Psychological History: Anxiety Smoking Status: Former smoker Past Alcohol Use History: Rare Past Drug Use History: None Reported - Past Family History Father Family Medical History: Myocardial Infarction (ND) Brother(s) Additional Family Medical History / Comment(s): Heart surgery General Exam Limitations: no limitations Course Vital Signs 02/23/21 02/23/21 12:11 13:39 Temperature 97.7 F Pulse Rate 83 75 Respiratory 18 18 Rate Blood Pressure 136/82 138/82 O2 Sat by Pulse 94 L 100 Oximetry Medical Decision Making - Lab Data Result diagrams: 02/23/21 12:30 02/23/21 12:30 Lab Results 02/23/21 02/23/21 02/23/21 Range/Units 12:30 12:30 12:30 WBC 5.6 (3.8-10.6) k/uL RBC 3.62 L (3.80-5.40) m/uL Hgb 13.1 (11.4-16.0) gm/dL Hct 38.6 (34.0-46.0) % MCV 106.6 H (80.0-100.0) fL MCH 36.2 H (25.0-35.0) pg MCHC 33.9 (31.0-37.0) g/dL RDW 14.4 (11.5-15.5) % Plt Count 157 (150-450) k/uL MPV 7.8 Neutrophils % 82 % Lymphocytes % 9 % Monocytes % 6 % Eosinophils % 1 % Basophils % 0 % Neutrophils # 4.5 (1.3-7.7) k/uL Lymphocytes # 0.5 L (1.0-4.8) k/uL Monocytes # 0.3 (0-1.0) k/uL Eosinophils # 0.1 (0-0.7) k/uL Basophils # 0.0 (0-0.2) k/uL Macrocytosis Moderate PT 12.4 H (9.0-12.0) sec INR 1.2 H (<1.2) APTT 27.4 (22.0-30.0) sec Sodium 123 L (137-145) mmol/L Potassium 4.7 (3.5-5.1) mmol/L Chloride 92 L (98-107) mmol/L Carbon Dioxide 25 (22-30) mmol/L Anion Gap 6 mmol/L BUN 15 (7-17) mg/dL Creatinine 0.64 (0.52-1.04) mg/dL Est GFR (CKD-EPI)AfAm >90 (>60 ml/min/1.73 sqM) Est GFR (CKD-EPI)NonAf >90 (>60 ml/min/1.73 sqM) Glucose 176 H (74-99) mg/dL Calcium 8.5 (8.4-10.2) mg/dL Magnesium 1.6 (1.6-2.3) mg/dL Troponin I (0.000-0.034) ng/mL NT-Pro-B Natriuret Pep pg/mL 02/23/21 02/23/21 Range/Units 12:30 12:30 WBC (3.8-10.6) k/uL RBC (3.80-5.40) m/uL Hgb (11.4-16.0) gm/dL Hct (34.0-46.0) % MCV (80.0-100.0) fL MCH (25.0-35.0) pg MCHC (31.0-37.0) g/dL RDW (11.5-15.5) % Plt Count (150-450) k/uL MPV Neutrophils % % Lymphocytes % % Monocytes % % Eosinophils % % Basophils % % Neutrophils # (1.3-7.7) k/uL Lymphocytes # (1.0-4.8) k/uL Monocytes # (0-1.0) k/uL Eosinophils # (0-0.7) k/uL Basophils # (0-0.2) k/uL Macrocytosis PT (9.0-12.0) sec INR (<1.2) APTT (22.0-30.0) sec Sodium (137-145) mmol/L Potassium (3.5-5.1) mmol/L Chloride (98-107) mmol/L Carbon Dioxide (22-30) mmol/L Anion Gap mmol/L BUN (7-17) mg/dL Creatinine (0.52-1.04) mg/dL Est GFR (CKD-EPI)AfAm (>60 ml/min/1.73 sqM) Est GFR (CKD-EPI)NonAf (>60 ml/min/1.73 sqM) Glucose (74-99) mg/dL Calcium (8.4-10.2) mg/dL Magnesium (1.6-2.3) mg/dL Troponin I 0.127 H* (0.000-0.034) ng/mL NT-Pro-B Natriuret Pep 7840 pg/mL Disposition Clinical Impression: CHF exacerbation Disposition: ADMITTED IP TO THIS HOSP Condition: Fair Referrals: Alexandra Brown MD [Primary Care Provider] - 1-2 days
[2021-02-23 12:51] LABS: Basophils % (A) 0 %; Eosinophils # (A) 0.1 k/uL (0-0.7); Eosinophils % (A) 1 %; HCT 38.6 % (34.0-46.0); HGB 13.1 gm/dL (11.4-16.0); Lymphocytes # (A) 0.5 k/uL (1.0-4.8); Lymphocytes % (A) 9 %; MCH 36.2 pg (25.0-35.0); MCHC 33.9 g/dL (31.0-37.0); MCV 106.6 fL (80.0-100.0); Macrocytosis Moderate; Mean Platelet Volume 7.8; Monocytes # (A) 0.3 k/uL (0-1.0); Monocytes % (A) 6 %; Neutrophils # (A) 4.5 k/uL (1.3-7.7); Neutrophils % (A) 82 %; Platelet Count 157 k/uL (150-450); RBC 3.62 m/uL (3.80-5.40); RDW 14.4 % (11.5-15.5); WBC 5.6 k/uL (3.8-10.6)
[2021-02-23 13:07] LABS: African American GFR (CKD) >90 (>60 ml/min/1.73 sqM); Anion Gap 6 mmol/L; Blood Urea Nitrogen 15 mg/dL (7-17); Calcium 8.5 mg/dL (8.4-10.2); Carbon Dioxide 25 mmol/L (22-30); Chloride 92 mmol/L (98-107); Glucose 176 mg/dL (74-99); Magnesium 1.6 mg/dL (1.6-2.3); Non-African American GFR(CKD) >90 (>60 ml/min/1.73 sqM); Potassium 4.7 mmol/L (3.5-5.1); Sodium 123 mmol/L (137-145)
[2021-02-23 13:11] LABS: INR 1.2 (<1.2); Partial Thromboplastin Time 27.4 sec (22.0-30.0); Prothrombin Time 12.4 sec (9.0-12.0)
--- NOTE | 2021-02-23 13:43 | XR ---
EXAMINATION TYPE: XR chest 2V DATE OF EXAM: 02/23/2021 COMPARISON: NONE HISTORY: Shortness of breath TECHNIQUE: Frontal and lateral views of the chest are obtained. FINDINGS: Scattered senescent parenchymal changes noted. Hyperinflation compatible with COPD. There is pulmonary venous congestion with interstitial prominence in scattered patchy basilar densiti es as well as small effusions. Correlate for congestive failure. Infiltrates of other etiology are no t excluded. Mediastinal structures are stable and grossly unremarkable. No evidence for hilar prominence. Degenerative changes dorsal spine. IMPRESSION: 1. There is pulmonary venous congestion with interstitial prominence in scattered patchy basilar dens ities as well as small effusions. Correlate for congestive failure. Infiltrates of other etiology are not excluded.
[2021-02-23] MEDS ORDERED: FUROSEMIDE 10 MG/ML 4 ML VIAL IV STA (13:51)
[2021-02-23] MEDS ORDERED: SODIUM CHLORIDE 0.9% 1,000 ML IV SCH (14:00)
[2021-02-23] MEDS: ACETAMINOPHEN TAB 325 MG TAB PO PRN (17:04)
[2021-02-23] MEDS ORDERED: INSULIN ASPART (NovoLOG) 100 UNIT/ML VIAL SQ PRN (19:22)
--- NOTE | 2021-02-23 20:40 | HP ---
HISTORY AND PHYSICAL DATE OF SERVICE: 02/23/2021 CHIEF COMPLAINTS: Shortness of breath, abdominal distention and leg edema. HISTORY OF PRESENT ILLNESS: This 65-year-old woman with a past medical history of multiple medical problems, including CAD, history of CHF, diabetes mellitus, GERD, hypertension, history of myocardial infarction, hypothyroidism, history of CAD, CABG, stent, being followed by Dr. Brown in the outpatient setting, had at least 4 recent admissions for CHF. The patient is followed by Dr. Ambriz, waiter/waitress tourist class. The patient is complaining of shortness of breath and bilateral leg edema as well as abdominal distention. Patient has been on an increased dose of Lasix for the last 7 days. Because of lack of improvement, the waiter/waitress tourist class recommended that the patient check in and be evaluated in the hospital. The patient came to [facility]. There is no history of any fever, rigor or chills at this time. The chest x-ray which I evaluated showed evidence of CHF. The patient also had recent stent placement by the Dr. Thompson, who performed successful stenting of the body of the SVG to right PDA with reduction of stenosis from 99% to 5%. The patient also had a 2D echo with Doppler a couple of months ago which showed ejection fraction about 30% to 35% and no pericardial effusion. Limited LV function was also noted. There is no history of any fever, rigors or chills. No history of headache, loss of consciousness, seizures. PAST MEDICAL HISTORY: History of CAD, CHF, diabetes mellitus, type 2, hypertension, hyperlipidemia, GERD, hypothyroidism, CAD, CABG, stent. MEDICATIONS: Home medications are reviewed and include MiraLAX, Prilosec, multivitamin, Reglan, lorazepam, Colace, vitamin D3, Lipitor, Coreg, bupropion, Entresto, Singulair, Synthroid, NovoLog, Lasix, Flexeril, Plavix, Ecotrin. ALLERGIES: ADHESIVE TAPES, LATEX, BIAXIN, AUGMENTIN, CODEINE AND MACROBID. FAMILY HISTORY: History of myocardial infarction and heart surgery in the family. SOCIAL HISTORY: No history of smoking. REVIEW OF SYSTEMS: ENT: No diminished hearing. No diminished vision. CARDIOVASCULAR SYSTEM: As mentioned earlier. RESPIRATORY SYSTEM: As mentioned earlier. GI: No nausea, vomiting, diarrhea. : No dysuria. NERVOUS SYSTEM: No numbness, weakness. ALLERGY/IMMUNOLOGY: No asthma or hay fever. MUSCULOSKELETAL: As mentioned earlier. HEMATOLOGY/ONCOLOGY: No history of anemia. ENDOCRINE: No history of diabetes, hypothyroidism. CONSTITUTIONAL: As mentioned earlier. DERMATOLOGY: Negative. RHEUMATOLOGY: Negative. PSYCHIATRY: As mentioned earlier. PHYSICAL EXAMINATION: Patient is alert, oriented x3. Pulse 75, blood pressure 138/82, respiration 18, temperature 97.7, pulse ox 100% on 2 L. HEENT: Conjunctivae normal. NECK: Jugular venous distention at the root of the neck. CARDIOVASCULAR: S1, S2 muffled. No S3. No S4. RESPIRATION: Breath sounds diminished at the bases. A few scattered rhonchi and crackles. ABDOMEN: Soft, obese, non-tender. LEGS: Bilateral leg edema. NERVOUS SYSTEM: Higher functions as mentioned earlier. Moves all 4 limbs. No focal motor or sensory deficit. LYMPHATICS: No lymph node palpable in neck, axillae or groin. SKIN: No ulcer, rash, bleeding. JOINTS: No active deforming arthropathy. LABS: WBC 3.6, hemoglobin 13.1. INR is 1.2. Sodium 123. Troponin 0.127. Chest x-ray reviewed personally. ASSESSMENT: 1. Congestive heart failure, acute exacerbation, with acute on chronic systolic dysfunction, ejection fraction 30% to 35%, with failure of outpatient treatment. 2. Troponin 0.127. Rule out acute vie-AH-buckscn-elevation myocardial infarction. 3. History of coronary artery disease, coronary artery bypass grafting, stent. 4. History of recent stent placement. 5. Diabetes mellitus, type 2. 6. Gastroesophageal reflux disease. 7. Hypertension. 8. Hyperlipidemia. 9. History of myocardial infarction. 10.History of hypothyroidism. 11.History of . 12.History of hysterectomy. 13.History of anxiety. 14.Remote history of nicotine dependence. 15.Increased mean corpuscular volume. 16.Hyponatremia. 17.Increased NT-proBNP. RECOMMENDATIONS AND DISCUSSION: In this 65-year-old woman who presented with multiple complex medical issues, we will monitor the patient closely, continue the current medications, continue with symptomatic treatment. Will initiate IV diuretics. Cardiology consultation. Resume the home medications. I would also recommend a CT scan of the chest without contrast. Otherwise, the prognosis is guarded. The patient may have to be evaluated for constrictive pericarditis as well. The prognosis is guarded because of multiple complex medical issues. Further recommendations to follow. A copy of this dictation is being forwarded to Dr. Brown, who is the primary physician. [id number] / IJN: [id number] / [id number]
[2021-02-23 20:54] LABS: Glucose,Whole Blood 55 mg/dL (75-99)
[2021-02-23] MEDS ORDERED: FUROSEMIDE 10 MG/ML 4 ML VIAL IV SCH (21:00)
[2021-02-23 21:14] LABS: Glucose,Whole Blood 59 mg/dL (75-99)
[2021-02-23] MEDS: ALPRAZolam 0.25 MG TAB PO PRN (21:14)
[2021-02-23] MEDS: HEPARIN SODIUM,PORCINE/PF 5,000 UNIT/0.5 ML SYRINGE SQ SCH (21:14)
[2021-02-23] MEDS: CHOLECALCIFEROL 25 MCG (1000 IU) TABLET PO SCH (21:14)
[2021-02-23] MEDS: ATORVASTATIN 20 MG TAB PO SCH (21:14)
[2021-02-23 21:33] LABS: Glucose,Whole Blood 47 mg/dL (75-99)
[2021-02-23 21:36] LABS: Glucose,Whole Blood 75 mg/dL (75-99)
[2021-02-23] MEDS: FUROSEMIDE 10 MG/ML 4 ML VIAL IV SCH (23:39)
[2021-02-24 03:02] LABS: Glucose,Whole Blood 185 mg/dL (75-99)
[2021-02-24 07:02] LABS: Glucose,Whole Blood 125 mg/dL (75-99)
[2021-02-24] MEDS: Insulin Aspart (For Pump) 100 UNIT/ML VIAL SQ-PUMP SCH (07:56)
[2021-02-24] MEDS: PANTOPRAZOLE 40 MG TABLET PO SCH (08:26)
[2021-02-24] MEDS: CLOPIDOGREL 75 MG TAB PO SCH (08:26)
[2021-02-24] MEDS: ASPIRIN 81 MG PO SCH (08:26)
[2021-02-24] MEDS: carvediloL 3.125 MG TAB PO SCH ×2 (08:26→16:37)
[2021-02-24] MEDS: FUROSEMIDE 10 MG/ML 4 ML VIAL IV SCH ×2 (08:26→16:37)
[2021-02-24] MEDS: buPROPion XL 150 MG TAB.ER.24H PO SCH (08:26)
[2021-02-24] MEDS: HEPARIN SODIUM,PORCINE/PF 5,000 UNIT/0.5 ML SYRINGE SQ SCH (08:26)
[2021-02-24 11:30] LABS: Glucose,Whole Blood 152 mg/dL (75-99)
[2021-02-24 12:08] LABS: HCT 36.7 % (37.2-46.3); HGB 12.2 g/dL (12.0-15.0); MCH 35.2 pg (27.0-32.0); MCHC 33.2 g/dL (32.0-37.0); MCV 105.8 fL (80.0-97.0); Platelet Count 148 X 10*3/uL (140-440); RBC 3.47 X 10*6/uL (4.10-5.20); RDW 14.3 % (11.5-14.5); WBC 5.25 X 10*3/uL (4.50-10.00)
[2021-02-24] MEDS: FOLIC ACID 1 MG TAB PO SCH (12:24)
[2021-02-24] MEDS: THIAMINE 100 MG TAB PO SCH (12:24)
[2021-02-24] MEDS: MULTIVITAMINS, THERA 1 EACH TAB PO SCH (12:24)
[2021-02-24] MEDS: LEVOTHYROXINE 100 MCG TAB PO SCH (12:24)
[2021-02-24] MEDS: SACUBITRIL/VALSARTAN 49 MG-51 MG TABLET PO SCH (12:24)
[2021-02-24 12:49] LABS: Basophils # (A) 0.02 X 10*3/uL (0.00-0.10); Basophils % (A) 0.4 %; Eosinophils # (A) 0.09 X 10*3/uL (0.04-0.35); Eosinophils % (A) 1.7 %; Lymphocytes # (A) 0.94 X 10*3/uL (0.90-5.00); Lymphocytes % (A) 17.9 %; Monocytes # (A) 0.44 X 10*3/uL (0.20-1.00); Monocytes % (A) 8.4 %; Neutrophils # (A) 3.74 X 10*3/uL (1.80-7.70); Neutrophils % (A) 71.2 %
[2021-02-24 12:50] LABS: Macrocytosis (M) 2+
--- NOTE | 2021-02-24 13:46 | P.CRDCN ---
History of Present Illness History of present illness: This is a pleasant 65-year-old female patient who follows with Dr. Ashby. She has a history of coronary artery disease s/p four-vessel CABG in 2001, recent NSTEMI December 2020, ischemic cardiomyopathy with a known ejection fraction 30-35%, status post AICD in 2017, hypertension, hyperlipidemia, pulmonary fibrosis, and diabetes mellitus. We are consulted for elevated troponin. She presents to the emergency department with worsening lower extremity edema and weight gain and abdominal distension. She states that she notices significant weight gain around 8-10lbs. She states she felt that she had more fluid on her abdomen. She recently had her Lasix recently increased the past week, but because of no improvement her care provider recommended her be admitted. Patient denies any chest pain, shortness of breath, lightheadedness, dizziness. She denies recent doesn't orthopnea or PND. Patient was started on IV Lasix 40 mg every 8 hours. She's had 3.4 L per the past 24 hours. She also has decreased in weight. She endorses an improvement in her edema. In end of December 2020, patient presented to the emergency department with NSTEMI, she had complaints of nausea and vomiting as well as hypotension and weakness. EKG on admission showed sinus mechanism with right bundle branch block and ST-T wave changes noted in the anterolateral leads compared to previous. NT proBNP of 5950 and troponins of 0.043, 0.264 and 0.915. Cardiac catheterization was recommended. Patient underwent cardiac catheterization with Dr. Thompson on 01/17 with PCI SVG to the right PDA. After the procedure when back on the unit she did become hypotensive pressure 70s/50s she received 1L Bolus of fluid. With improvement. Limited echo revealed an EF of 30-35%, no pericardial effusion. Patient was stabilized and discharge home. DIAGNOSTICS Chest x-ray revealed pulmonary venous congestion with interstitial prominence, as well as small effusions, correlate for congestive heart failure. EKG revealed sinus rhythm, heart rate 81, right bundle branch block, T wave inversions in anterolateral leads, Prior EKG in December appears similar. Laboratory reviewed, troponin 0.12, 0.12, proBNP 7840, sodium 123, potassium 4.7, BUN 15, serum creatinine 0.6, magnesium 1.6, WBC 5.2, hemoglobin 12, platelets 148 Current cardiac medications include aspirin 81 mg daily, Plavix 75 mg daily, Lasix 20 mg daily, and trace to 49 mg54 mg twice a day, carvedilol 3.125 mg twice a day Limited echocardiogram in 12/2020 revealed an EF of 30-35%, no pericardial effusion. REVIEW OF SYSTEMS At the time of my exam: CONSTITUTIONAL: Denies fever or chills. CARDIOVASCULAR: +lower extremity edema Denies chest pain, shortness of breath, orthopnea, PND or palpitations. RESPIRATORY: Denies cough. GASTROINTESTINAL: +abdominal fullness. Denies abdominal pain, diarrhea, constipation, nausea or vomiting. MUSCULOSKELETAL: Denies myalgias. NEUROLOGIC: Denies numbness, tingling, headacbe or weakness. ENDOCRINE: Denies fatigue, weight change, polydipsia or polyurina. GENITOURINARY: Denies burning, hematuria or urgency with micturation. HEMATOLOGIC: Denies history of anemia or bleeding. PHYSICAL EXAMINATION Blood pressure 147/92 heart rate 73 afebrile and maintaining oxygen saturation on room air CONSTITUTIONAL: No apparent distress. HEENT: Head is normocephalic. Pupils are equal, round. Sclerae anicteric. Mucous membranes of the mouth are moist. No JVD. No carotid bruit. CHEST EXAMINATION: Lungs with crackles in the bilateral bases. No chest wall tenderness is noted on palpation or with deep breathing. HEART EXAMINATION: Regular rate and rhythm. S1, S2 heard. Systolic murmur noted at apex . ABDOMEN: Soft, nontender. Positive bowel sounds. EXTREMITIES: 2+ peripheral pulses, 1-2+ bilateral lower extremity edema and no calf tenderness. NEUROLOGIC EXAMINATION: Patient is awake, alert and oriented x3. ASSESSMENT Elevated troponin, 0.12, 0.12, not indicative of acute coronary syndrome, patient with no chest pain, no new ischemic changes on EKG Acute on chronic systolic heart failure with reduced EF Recent NSTEMI in December 2020 s/p PCI SVG to right PDA Coronary artery disease s/p four-vessel CABG in 2001 Ischemic cardiomyopathy with a known ejection fraction status post AICD in 2017 Hypertension Hyperlipidemia Pulmonary fibrosis Type 2 Diabetes mellitus. PLAN Continue dual antiplatelet therapy with aspirin and Plavix Continue IV diuresis I/Os, Daily weights Monitor renal function and electrolytes Continue home cardiac medications statin, carvedilol, and Entresto Further recommendations to follow based on evaluation by Dr. Ken Nurse Practitioner note has been reviewed, I agree with a documented findings and plan of care. Patient was seen and examined. Past Medical History Past Medical History: Coronary Artery Disease (CAD), Heart Failure, Diabetes Mellitus, GERD/Reflux, Hyperlipidemia, Hypertension, Myocardial Infarction ([place]), Thyroid Disorder Additional Past Medical History / Comment(s): Fribrosis in september 2020 Last Myocardial Infarction Date:: 2001 History of Any Multi-Drug Resistant Organisms: None Reported Past Surgical History: Section, Coronary Bypass/CABG, Heart Catheterization With Stent, Hysterectomy, Tubal Ligation Additional Past Surgical History / Comment(s): cataract surgery, hand surgery, recent heart stent 02/12 Past Anesthesia/Blood Transfusion Reactions: Postoperative Nausea & Vomiting (PONV) Date of Last Stent Placement:: 02-12-21 Past Psychological History: Anxiety Smoking Status: Former smoker Past Alcohol Use History: Rare Past Drug Use History: None Reported - Past Family History Father Family Medical History: Myocardial Infarction ([place]) Brother(s) Additional Family Medical History / Comment(s): Heart surgery Medications and Allergies Home Medications Medication Instructions Recorded Confirmed Type LORazepam [Ativan] 1 mg PO HS 02/02/14 02/23/21 History Omeprazole [PriLOSEC] 40 mg PO HS 02/02/14 02/23/21 History Aspirin EC [Ecotrin Low Dose] 81 mg PO DAILY 11/12/20 02/23/21 History Cholecalciferol [Vitamin D3 (25 50 mcg PO HS 11/12/20 02/23/21 History Mcg = 1000 Iu)] Docusate [Colace] 100 mg PO DAILY PRN 11/12/20 02/23/21 History Insulin Aspart (For Pump) [NovoLOG 0.01 unit SQ-PUMP CONTINUOUS 11/12/20 02/23/21 History (For Pump)] Levothyroxine Sodium [Synthroid] 100 mcg PO MOTUWETHFRSA 11/12/20 02/23/21 History Montelukast [Singulair] 10 mg PO DAILY 11/12/20 02/23/21 History Multivit with Calcium,Iron,Min 1 tab PO HS 11/12/20 02/23/21 History [Women's Multivitamin] Sacubitril/Valsartan [Entresto 49 1 tab PO BID 11/12/20 02/23/21 History mg-51 mg Tablet] buPROPion HCL [buPROPion HCL Xl] 150 mg PO DAILY 12/23/20 02/23/21 History polyethylene glycoL 3350 [Miralax] 17 gm PO DAILY PRN #15 packet 12/25/20 02/23/21 Rx Cyclobenzaprine [Flexeril] 10 mg PO BID 01/13/21 02/23/21 History Furosemide [Lasix] 20 mg PO DAILY 01/13/21 02/23/21 History Metoclopramide HCl [Reglan] 5 mg PO TID PRN 01/13/21 02/23/21 History Clopidogrel [Plavix] 75 mg PO DAILY 90 Days #90 tab 01/18/21 02/23/21 Rx Atorvastatin [Lipitor] 20 mg PO HS 02/23/21 02/23/21 History carvediloL [Coreg] 3.125 mg PO BID-W/MEALS 02/23/21 02/23/21 History Allergies Allergy/AdvReac Type Severity Reaction Status Date / Time adhesive Allergy Unknown Verified 02/23/21 13:31 latex Allergy Unknown Verified 02/23/21 13:31 amoxicillin [From Augmentin] AdvReac Nausea & Verified 02/23/21 13:31 Vomiting clarithromycin [From Biaxin] AdvReac Nausea & Verified 02/23/21 13:31 Vomiting clavulanic acid AdvReac Nausea & Verified 02/23/21 13:31 [From Augmentin] Vomiting codeine AdvReac Nausea & Verified 02/23/21 13:31 Vomiting nitrofurantoin AdvReac Nausea & Verified 02/23/21 13:31 [From Macrobid] Vomiting Physical Exam Vitals: Vital Signs Temp Pulse Pulse Resp BP BP Pulse Ox 02/24/21 07:42 93 L 02/24/21 07:30 97.9 F 73 18 147/92 92 L 02/24/21 02:53 97.9 F 68 15 113/67 99 02/23/21 19:56 97.5 F L 70 18 134/83 96 02/23/21 13:39 75 18 138/82 100 02/23/21 12:11 97.7 F 83 18 136/82 94 L Intake and Output 02/23/21 02/24/21 02/24/21 22:59 06:59 14:59 Intake Total 300 Output Total 900 2500 2100 Balance -600 -2500 -2100 Intake: Oral 300 Output: Urine 900 2500 2100 Other: Voiding Method Indwelling Catheter Indwelling Catheter Weight 89.358 kg 85.366 kg Results 02/24/21 06:18 02/23/21 12:30 Cardiac Enzymes 02/23/21 Range/Units 12:30 Troponin I 0.127 H* (0.000-0.034) ng/mL Coagulation 02/23/21 Range/Units 12:30 PT 12.4 H (9.0-12.0) sec APTT 27.4 (22.0-30.0) sec CBC 02/23/21 Range/Units 12:30 WBC 5.6 (3.8-10.6) k/uL RBC 3.62 L (3.80-5.40) m/uL Hgb 13.1 (11.4-16.0) gm/dL Hct 38.6 (34.0-46.0) % Plt Count 157 (150-450) k/uL Comprehensive Metabolic Panel 02/23/21 Range/Units 12:30 Sodium 123 L (137-145) mmol/L Potassium 4.7 (3.5-5.1) mmol/L Chloride 92 L (98-107) mmol/L Carbon Dioxide 25 (22-30) mmol/L BUN 15 (7-17) mg/dL Creatinine 0.64 (0.52-1.04) mg/dL Glucose 176 H (74-99) mg/dL Calcium 8.5 (8.4-10.2) mg/dL Current Medications Generic Name Dose Route Start Last Admin Trade Name Emanuelq PRN Reason Stop Dose Admin Acetaminophen 650 mg 02/23/21 16:57 02/23/21 17:04 Acetaminophen Tab 325 Mg Tab PO 650 mg Q6HR PRN Administration Fever and/ or Pain Alprazolam 0.25 mg 02/23/21 17:39 02/23/21 21:14 Alprazolam 0.25 Mg Tab PO 0.25 mg TID PRN Administration Anxiety Aspirin 81 mg 02/24/21 09:00 02/24/21 08:26 Aspirin 81 Mg PO 81 mg DAILY KATHLEEN Administration Atorvastatin Calcium 20 mg 02/23/21 21:00 02/23/21 21:14 Atorvastatin 20 Mg Tab PO 20 mg HS KATHLEEN Administration Bupropion HCl 150 mg 02/24/21 09:00 02/24/21 08:26 Bupropion Xl 150 Mg Tab.Er.24h PO 150 mg DAILY KATHLEEN Administration Carvedilol 3.125 mg 02/24/21 07:30 02/24/21 08:26 Carvedilol 3.125 Mg Tab PO 3.125 mg BID-W/MEALS KATHLEEN Administration Cholecalciferol 50 mcg 02/23/21 21:00 02/23/21 21:14 Cholecalciferol 25 Mcg (1000 Iu) Tablet PO 50 mcg HS KATHLEEN Administration Clopidogrel Bisulfate 75 mg 02/24/21 09:00 02/24/21 08:26 Clopidogrel 75 Mg Tab PO 75 mg DAILY KATHLEEN Administration Folic Acid 1 mg 02/24/21 12:00 Folic Acid 1 Mg Tab PO DAILY@1200 KATHLEEN Furosemide 40 mg 02/24/21 00:00 02/24/21 08:26 Furosemide 10 Mg/Ml 4 Ml Vial IV 40 mg Q8HR KATHLEEN Administration Heparin Sodium (Porcine) 5,000 unit 02/23/21 21:00 02/24/21 08:26 Heparin Sodium,Porcine/Pf 5,000 Unit/0.5 Ml Syringe SQ 5,000 unit Q12HR KATHLEEN Administration Sodium Chloride 1,000 mls @ 20 mls/hr 02/23/21 14:00 02/23/21 14:25 Saline 0.9% IV 20 mls/hr .Q24H KATHLEEN Administration Insulin Aspart 0 unit 02/23/21 19:22 Insulin Aspart (Novolog) 100 Unit/Ml Vial SQ DAILY PRN Insulin Pump Replacement Insulin Aspart 0.01 unit 02/23/21 19:30 02/24/21 07:56 Insulin Aspart (For Pump) 100 Unit/Ml Vial SQ-PUMP Not Given CONTINUOUS [facility] Levothyroxine Sodium 100 mcg 02/24/21 11:30 Levothyroxine 100 Mcg Tab PO [id number] [facility] Multivitamins 1 each 02/24/21 12:00 Multivitamins, Thera 1 Each Tab PO DAILY@1200 [facility] Pantoprazole Sodium 40 mg 02/24/21 07:30 02/24/21 08:26 Pantoprazole 40 Mg Tablet PO 40 mg [id number] KATHLEEN Administration Sacubitril/Valsartan 1 each 02/24/21 12:00 Sacubitril/Valsartan 49 Mg-51 Mg Tablet PO BID KATHLEEN Thiamine HCl 100 mg 02/24/21 12:00 Thiamine 100 Mg Tab PO DAILY@1200 KATHLEEN Intake and Output 02/23/21 02/24/21 02/24/21 22:59 06:59 14:59 Intake Total 300 Output Total 900 2500 2100 Balance -600 -2500 -2100 Intake: Oral 300 Output: Urine 900 2500 2100 Other: Voiding Method Indwelling Catheter Indwelling Catheter Weight 89.358 kg 85.366 kg Patient Weight 02/25/21 06:59 Weight 85.366 kg 02/23/21 12:30 02/23/21 12:30
[2021-02-24 13:47] VITALS: BMI 30.4
[2021-02-24 13:53] LABS: African American GFR (CKD) 90.3 (60.0-200.0); Anion Gap 9.1 mmol/L (4.00-12.00); BUN/Creat Ratio 17.5 Ratio (12.00-20.00); Calcium 9.1 mg/dL (8.7-10.3); Carbon Dioxide 28.9 mmol/L (21.6-31.8); Non-African American GFR(CKD) 77.9 (60.0-200.0); Potassium 3.8 mmol/L (3.5-5.5)
--- NOTE | 2021-02-24 15:32 | CT ---
EXAMINATION TYPE: CT chest wo con DATE OF EXAM: 02/24/2021 COMPARISON: Chest CT November 29, [address] October 13, 2017 HISTORY: sob, chf, pneumonia, ? Constrictive pericarditis CT DLP: 444.2 mGycm. Automated Exposure Control for Dose Reduction was Utilized. TECHNIQUE: CT scan of the thorax is performed without IV contrast. FINDINGS: LUNGS: Moderate underlying emphysematous changes redemonstrated bilaterally. Persistent peripheral re ticulation and fibrosis greatest in the lower lungs were there are areas of honeycombing present. No pleural effusion or pneumothorax seen bilaterally. MEDIASTINUM: Persistent cardiomegaly with multilead pacemaker/defibrillator. No pericardial effusion. Enlarged main pulmonary artery consistent with underlying pulmonary artery hypertension. Midline Adarsh rnotomy with nonunion redemonstrated. No definitive new greater than 1 cm mediastinal lymph nodes. OTHER: Visualized portion of liver remains prominent. Osseous structures are demineralized with mild to moderate multilevel spurring in the spine. IMPRESSION: Persistent marked cardiomegaly without pericardial effusion or calcification. Persistent moderate chronic emphysematous change and basilar pulmonary fibrotic change raising concern for IPF. No acute pulmonary process.
--- NOTE | 2021-02-24 16:24 | PN ---
PROGRESS NOTE DATE OF SERVICE: 02/24/2021. This 65-year-old woman was admitted with shortness of breath, possibly CHF, acute exacerbation. Patient is on IV diuretics. Patient is feeling slightly better. Cardiology has seen the patient and recommended to continue with current medication. Troponin is slightly elevated, but the patient had a recent [id number] myocardial infarction and history of stenting also. The troponin values are noted to be 0.127 and 0.121, possibly not indicating acute coronary syndrome pattern at this time. Past medical history reviewed. REVIEW OF SYSTEMS: CARDIOVASCULAR SYSTEM: No angina. RESPIRATION: As mentioned earlier. GI: As mentioned earlier. : No dysuria. NERVOUS SYSTEM: No numbness, weakness. CURRENT MEDICATIONS: Reviewed. They include Tylenol, Xanax, aspirin, Lipitor, Wellbutrin, Coreg, Plavix, folic acid, Lasix, NovoLog scale. PHYSICAL EXAMINATION: Patient is alert and oriented x3. Pulse 56, blood pressure 134/83, respiration 17, temperature 98.8, pulse ox % on room air. HEENT: Conjunctivae normal. NECK: No jugular venous distention. CARDIOVASCULAR: S1, S2 muffled. RESPIRATION: Breath sounds diminished at the bases. A few scattered rhonchi. ABDOMEN: Soft. Mild distention. LEGS: Bilateral leg edema. NERVOUS SYSTEM: No focal deficit. LABS: WBC 5.3, hemoglobin 12.2, sodium 139, potassium 3.8. BUN is 14, creatinine 0.8. Troponin noted. ASSESSMENT: 1. Congestive heart failure, acute exacerbation, with acute on chronic systolic dysfunction, ejection fraction 30% to 35% with failure of outpatient treatment. 2. Troponin 0.127, indeterminate. Possibly secondary to recent [id number] elevation myocardial infarction. 3. History of coronary artery disease, coronary artery bypass grafting, stent. 4. History of recent stent placement. 5. Hyponatremia. 6. Diabetes mellitus, type 2. 7. History of gastroesophageal reflux disease. 8. Hypertension. 9. Hyperlipidemia. 10.History of myocardial infarction. 11.Hypothyroidism. 12.History of . 13.History hysterectomy. 14.Anxiety. 15.History of nicotine dependence. 16.Increased mean corpuscular volume. 17.Increased NT-proBNP. RECOMMENDATIONS AND DISCUSSION: I recommend to continue current medications, continue with the monitoring, symptomatic treatment. Otherwise at this time I recommend repeat labs. Continue the Lasix. Continue rest of the medications. Closely follow with Cardiology. Guarded prognosis. Further recommendations to follow. MMODL / IJN: [id number] / ANA PAULA
[2021-02-24 16:30] LABS: Glucose,Whole Blood 99 mg/dL (75-99)
[2021-02-24] MEDS: ACETAMINOPHEN TAB 325 MG TAB PO PRN (17:17)
[2021-02-24 20:32] LABS: Glucose,Whole Blood 171 mg/dL (75-99)
[2021-02-25] MEDS: ALPRAZolam 0.25 MG TAB PO PRN (00:15)
[2021-02-25] MEDS: CHOLECALCIFEROL 25 MCG (1000 IU) TABLET PO SCH (00:15)
[2021-02-25] MEDS: SACUBITRIL/VALSARTAN 49 MG-51 MG TABLET PO SCH ×2 (00:15→08:44)
[2021-02-25] MEDS: ATORVASTATIN 20 MG TAB PO SCH (00:15)
[2021-02-25] MEDS: HEPARIN SODIUM,PORCINE/PF 5,000 UNIT/0.5 ML SYRINGE SQ SCH ×2 (00:16→08:45)
[2021-02-25] MEDS: FUROSEMIDE 10 MG/ML 4 ML VIAL IV SCH ×2 (00:16→08:44)
[2021-02-25] MEDS: ACETAMINOPHEN TAB 325 MG TAB PO PRN (02:41)
[2021-02-25 06:30] LABS: Glucose,Whole Blood 154 mg/dL (75-99)
[2021-02-25] MEDS: Insulin Aspart (For Pump) 100 UNIT/ML VIAL SQ-PUMP SCH (06:54)
[2021-02-25 07:05] LABS: Basophils % (A) 0 %; Eosinophils # (A) 0.1 k/uL (0-0.7); Eosinophils % (A) 2 %; HCT 41.9 % (34.0-46.0); HGB 12.9 gm/dL (11.4-16.0); Hypochromasia Slight; Lymphocytes # (A) 0.7 k/uL (1.0-4.8); Lymphocytes % (A) 15 %; MCH 33.1 pg (25.0-35.0); MCHC 30.9 g/dL (31.0-37.0); MCV 107.3 fL (80.0-100.0); Macrocytosis Moderate; Mean Platelet Volume 7.7; Monocytes # (A) 0.5 k/uL (0-1.0); Monocytes % (A) 11 %; Neutrophils # (A) 3.3 k/uL (1.3-7.7); Neutrophils % (A) 69 %; Platelet Count 162 k/uL (150-450); RBC 3.91 m/uL (3.80-5.40); RDW 14.4 % (11.5-15.5); WBC 4.8 k/uL (3.8-10.6)
[2021-02-25 07:25] LABS: African American GFR (CKD) >90 (>60 ml/min/1.73 sqM); Anion Gap 6 mmol/L; Blood Urea Nitrogen 14 mg/dL (7-17); Calcium 8.5 mg/dL (8.4-10.2); Carbon Dioxide 33 mmol/L (22-30); Chloride 90 mmol/L (98-107); Glucose 155 mg/dL (74-99); Magnesium 1.5 mg/dL (1.6-2.3); Non-African American GFR(CKD) 87 (>60 ml/min/1.73 sqM); Potassium 3.8 mmol/L (3.5-5.1); Sodium 129 mmol/L (137-145)
[2021-02-25 07:57] VITALS: BP 120/71; PULSE 67; RESP 16; TEMP 97.5
[2021-02-25] MEDS: carvediloL 3.125 MG TAB PO SCH (08:44)
[2021-02-25] MEDS: PANTOPRAZOLE 40 MG TABLET PO SCH (08:44)
[2021-02-25] MEDS: buPROPion XL 150 MG TAB.ER.24H PO SCH (08:44)
[2021-02-25] MEDS: LEVOTHYROXINE 100 MCG TAB PO SCH (08:44)
[2021-02-25] MEDS: CLOPIDOGREL 75 MG TAB PO SCH (08:44)
[2021-02-25] MEDS: ASPIRIN 81 MG PO SCH (08:44)
[2021-02-25] MEDS ORDERED: Magnesium Replacement Protocol 1 EACH MISC MISCELLANE PRN ×2 (10:54)
[2021-02-25 11:36] LABS: Glucose,Whole Blood 222 mg/dL (75-99)
--- NOTE | 2021-02-25 12:12 | P.PN ---
Subjective Progress Note Date: 02/25/21 This is a pleasant 65-year-old female patient who follows with Dr. Ashby. She has a history of coronary artery disease s/p four-vessel CABG in 2001, recent NSTEMI December 2020, ischemic cardiomyopathy with a known ejection fraction 30-35%, status post AICD in 2017, hypertension, hyperlipidemia, pulmonary fibrosis, and diabetes mellitus. We are consulted for elevated troponin. She presents to the emergency department with worsening lower extremity edema and weight gain and abdominal distension. She states that she notices significant weight gain around 8-10lbs. She states she felt that she had more fluid on her abdomen. She recently had her Lasix recently increased the past week, but because of no i mprovement her data lead recommended her be admitted. Patient denies any chest pain, shortness of breath, lightheadedness, dizziness. She denies recent doesn't orthopnea or PND. Patient was started on IV Lasix 40 mg every 8 hours. She's had 3.4 L per the past 24 hours. She also has decreased in weight. She endorses an improvement in her edema. In end of December 2020, patient presented to the emergency department with NSTEMI, she had complaints of nausea and vomiting as well as hypotension and weakness. EKG on admission showed sinus mechanism with right bundle branch block and ST-T wave changes noted in the anterolateral leads compared to previous. NT proBNP of 5950 and troponins of 0.043, 0.264 and 0.915. Cardiac catheterization was recommended. Patient underwent cardiac catheterization with Dr. Thompson on 01/17 with PCI SVG to the right PDA. After the procedure when back on the unit she did become hypotensive pressure 70s/50s she received 1L Bolus of fluid. With improvement. Limited echo revealed an EF of 30-35%, no pericardial effusion. Patient was stabilized and discharge home. DIAGNOSTICS Chest x-ray revealed pulmonary venous congestion with interstitial prominence, as well as small effusions, correlate for congestive heart failure. EKG revealed sinus rhythm, heart rate 81, right bundle branch block, T wave inversions in anterolateral leads, Prior EKG in December appears similar. Laboratory reviewed, troponin 0.12, 0.12, proBNP 7840, sodium 123, potassium 4.7, BUN 15, serum creatinine 0.6, magnesium 1.6, WBC 5.2, hemoglobin 12, platelets 148 Current cardiac medications include aspirin 81 mg daily, Plavix 75 mg daily, Lasix 20 mg daily, and trace to 49 mg54 mg twice a day, carvedilol 3.125 mg twice a day Limited echocardiogram in 12/2020 revealed an EF of 30-35%, no pericardial effusion. 02/25/2021 Patient examined this morning at the bedside. Patient denies chest pain or pressure. She reports her shortness of breath has actually improved. She remains on IV Lasix. Fluid balance over the last 24 hours is almost -6 L. BUN 14. Creatinine 0.74. PHYSICAL EXAMINATION CONSTITUTIONAL: No apparent distress. HEENT: Head is normocephalic. Pupils are equal, round. Sclerae anicteric. Mucous membranes of the mouth are moist. No JVD. No carotid bruit. CHEST EXAMINATION: Lungs diminished. No chest wall tenderness is noted on palpation or with deep breathing. HEART EXAMINATION: Regular rate and rhythm. S1, S2 heard. Systolic murmur noted at apex . ABDOMEN: Soft, nontender. Positive bowel sounds. EXTREMITIES: 2+ peripheral pulses, 1+ bilateral lower extremity edema and no calf tenderness. NEUROLOGIC EXAMINATION: Patient is awake, alert and oriented x3. ASSESSMENT Elevated troponin, 0.12, 0.12, not indicative of acute coronary syndrome, patien t with no chest pain, no new ischemic changes on EKG Acute on chronic systolic heart failure with reduced EF Recent NSTEMI in December 2020 s/p PCI SVG to right PDA Coronary artery disease s/p four-vessel CABG in 2001 Ischemic cardiomyopathy with a known ejection fraction status post AICD in 2017 Hypertension Hyperlipidemia Pulmonary fibrosis Type 2 Diabetes mellitus. PLAN Discontinue IV Lasix Begin oral Lasix 20 mg daily Continued to monitor daily weights and accurate I&O Further recommendations pending patient's course Nurse Practitioner note has been reviewed, I agree with a documented findings and plan of care. Patient was seen and examined. Objective - Vital Signs Vital signs: Vital Signs Temp 97.5 F L 02/25/21 07:56 Pulse 67 02/25/21 07:56 Resp 16 02/25/21 07:56 BP 120/71 02/25/21 07:56 Pulse Ox 92 L 02/25/21 07:56 Intake & Output 02/24/21 02/25/21 02/25/21 18:59 06:59 18:59 Output Total 2976 3000 Balance -2975 -3000 Weight 85.366 kg 82.2 kg Output: Urine 7706 3000 Other: Voiding Method Indwelling Catheter Toilet # Voids 3 - Labs CBC & Chem 7: 02/25/21 06:32 02/25/21 06:32 Labs: Abnormal Lab Results - Last 24 Hours (Table) 02/24/21 02/24/21 02/24/21 Range/Units 06:18 06:18 20:31 MCV (80.0-100.0) fL MCHC (31.0-37.0) g/dL Lymphocytes # (1.0-4.8) k/uL Sodium 131 L (135-145) mmol/L Chloride 93 L (96-109) mmol/L Carbon Dioxide (22-30) mmol/L Glucose 134 H (70-110) mg/dL POC Glucose (mg/dL) 171 H (75-99) mg/dL Magnesium (1.6-2.3) mg/dL Troponin I 0.121 H* (0.000-0.034) ng/mL 02/25/21 02/25/21 02/25/21 Range/Units 06:29 06:32 06:32 MCV 107.3 H (80.0-100.0) fL MCHC 30.9 L (31.0-37.0) g/dL Lymphocytes # 0.7 L (1.0-4.8) k/uL Sodium 129 L (135-145) mmol/L Chloride 90 L (96-109) mmol/L Carbon Dioxide 33 H (22-30) mmol/L Glucose 155 H (70-110) mg/dL POC Glucose (mg/dL) 154 H (75-99) mg/dL Magnesium 1.5 L (1.6-2.3) mg/dL Troponin I (0.000-0.034) ng/mL 02/25/21 Range/Units 11:35 MCV (80.0-100.0) fL MCHC (31.0-37.0) g/dL Lymphocytes # (1.0-4.8) k/uL Sodium (135-145) mmol/L Chloride (96-109) mmol/L Carbon Dioxide (22-30) mmol/L Glucose (70-110) mg/dL POC Glucose (mg/dL) 222 H (75-99) mg/dL Magnesium (1.6-2.3) mg/dL Troponin I (0.000-0.034) ng/mL
[2021-02-25] MEDS: FOLIC ACID 1 MG TAB PO SCH (12:24)
[2021-02-25] MEDS: MAGNESIUM SULFATE-D5W PMX 1 GM in DEXTROSE/WATER 1 100ML.BAG IVPB SCH ×2 (12:24→13:45)
[2021-02-25] MEDS: MULTIVITAMINS, THERA 1 EACH TAB PO SCH (12:24)
[2021-02-25] MEDS: THIAMINE 100 MG TAB PO SCH (12:24)
--- NOTE | 2021-02-25 13:59 | XR ---
EXAMINATION TYPE: XR chest 1V portable DATE OF EXAM: 02/25/2021 COMPARISON: 02/23/2021 INDICATION: CHF TECHNIQUE: Single frontal view of the chest is obtained. FINDINGS: The heart size is moderately prominent. The pulmonary vasculature is normal. Mild by basilar infiltrates are present slightly improved over the interval. Resolving atypical pulmo nary edema could be considered. Pacemaker overlies left chest. IMPRESSION: 1. Improving bibasilar infiltrates with cardiomegaly. Findings could be compatible with resolving con gestive heart failure. Follow-up can be performed.
--- NOTE | 2021-02-25 18:25 | DS ---
DISCHARGE SUMMARY DATE OF SERVICE: 02/25/2021 FINAL DIAGNOSES: 1. CHF acute exacerbation acute on chronic systolic dysfunction ejection fraction 30 to 35%, failure of outpatient treatment. 2. Troponin 0.120 indeterminate possibly secondary to recent non ST-segment elevation myocardial infarction diminishing values. 3. Idiopathic pulmonary fibrosis, possibly. 4. Possible chronic cor pulmonale. 5. History of CAD, CABG stent. 6. History of recent stent placement. 7. Hyponatremia. 8. Diabetes type 2. 9. History of gastroesophageal reflux disease. 10.Hypertension. 11.Hyperlipidemia. 12.History of myocardial infarction. 13.History of hypothyroidism. 14.History of C-sections and hysterectomy. 15.History of anxiety. 16.History of nicotine dependence. 17.Increased MCV. 18.Increased NT proBNP. DISCHARGE CONDITION: The patient is being discharged in stable with guarded prognosis. Total time 35 minutes. HISTORY OF PRESENT ILLNESS: A 65-year-old woman with a past medical history of multiple medical problems, being followed by Dr. Brown in the outpatient setting, admitted with shortness of breath. The patient was treated for CHF acute exacerbation with diuretics and other medications. Patient improved significantly. The patient also requested a second opinion for pulmonary fibrosis, recommended possible evaluation at [facility] and to be followed Dr. Brown in his office. The patient also had a CT scan of the chest which was reviewed personally, showed no evidence of any pericardial calcification, however other findings are noted as above. PHYSICAL EXAM: On exam, vitals stable stable. Cardiovascular regular rate and rhythm. Abdomen soft. Few crackles. DISCHARGE ADVICE AND MEDICATIONS: 1. Diet is cardiac. 2. Follow up with Cardiology in 1 week. 3. Follow up with Dr. Brown as recommended. DISCHARGE MEDICATIONS: 1. Ativan 1 mg bedtime. 2. Bupropion XL 150 mg p.o. daily. 3. Colace 100 mg. 4. Coreg 3.125 mg b.i.d. 5. Ecotrin 81 mg daily. 6. Entresto 1 b.i.d. 7. Flexeril 10 mg b.i.d. 8. Lipitor 10 mg at bedtime. 9. Prilosec 40 mg at bedtime. 10.Reglan 5 mg t.i.d. p.r.n. 11.Singulair 10 mg p.o. daily. 12.Synthroid 100 mcg p.o. as before. 13.Vitamin D3 50 mg mcg p.o. bedtime. 14.Multivitamins 1 p.o. 15.Folic acid 1 mg p.o. daily. 16.Lasix 20 mg p.o. daily. 17.MiraLAX 17 g daily. 18.Plavix 75 mg p.o. daily. 19.Thiamine 100 mg p.o. Again, patient discharged in stable condition. Guarded prognosis. Also, patient had recent 2D echocardiogram while in the hospital, which showed ejection fraction about 30-35 percent and RV of 4.2 cm. MMODL / IJN: [id number] /
[2021-02-26] MEDS ORDERED: FUROSEMIDE 20 MG TAB PO SCH (09:00)
== END 2021-02-25 15:23 | disposition home or self-care (01) | DRG 292 ==
LOC: EC 12:10 → 4SSUR 13:53
PROVIDERS: ADMIT Hospitalist; ATTEND Hospitalist
DX: I11.0 Hypertensive heart disease with heart failure (principal); E87.1 Hypo-osmolality and hyponatremia; I50.23 Acute on chronic systolic (congestive) heart failure; I25.5 Ischemic cardiomyopathy; I45.10 Unspecified right bundle-branch block; J84.112 Idiopathic pulmonary fibrosis; K21.9 Gastro-esophageal reflux disease without esophagitis; E03.9 Hypothyroidism, unspecified; E11.9 Type 2 diabetes mellitus without complications; E78.5 Hyperlipidemia, unspecified; F41.9 Anxiety disorder, unspecified; I25.2 Old myocardial infarction; I25.10 Atherosclerotic heart disease of native coronary artery without angina pectoris; Z79.02 Long term (current) use of antithrombotics/antiplatelets; Z79.4 Long term (current) use of insulin; Z79.82 Long term (current) use of aspirin; Z79.890 Hormone replacement therapy; Z79.899 Other long term (current) drug therapy; Z82.49 Family history of ischemic heart disease and other diseases of the circulatory system; Z87.891 Personal history of nicotine dependence; Z90.710 Acquired absence of both cervix and uterus; Z95.1 Presence of aortocoronary bypass graft; Z95.5 Presence of coronary angioplasty implant and graft; Z95.810 Presence of automatic (implantable) cardiac defibrillator; Z96.41 Presence of insulin pump (external) (internal); Z88.5 Allergy status to narcotic agent; Z88.0 Allergy status to penicillin; Z88.1 Allergy status to other antibiotic agents; Z91.040 Latex allergy status
CPT/HCPCS: 36415; 71045; 71046; 71250; 80048; 83735; 83880; 84484; 85025; 85610; 85730; 93005; 94760; 96361; 96374; 99285

== ENCOUNTER → 2021-03-09 | Outpatient (CLI) | payer MEDICARE ==
[2021-03-09 12:45] LABS: African American GFR (CKD) >90 (>60 ml/min/1.73 sqM); Anion Gap 8 mmol/L; Blood Urea Nitrogen 17 mg/dL (7-17); Carbon Dioxide 28 mmol/L (22-30); Chloride 90 mmol/L (98-107); Non-African American GFR(CKD) 87 (>60 ml/min/1.73 sqM); Sodium 126 mmol/L (137-145)
== END | disposition home or self-care (01) ==
LOC: LABWHC1 11:43
PROVIDERS: ATTEND Internal Medicine Interventional Cardiology
DX: I50.42 Chronic combined systolic (congestive) and diastolic (congestive) heart failure (principal); R60.9 Edema, unspecified
CPT/HCPCS: 36415; 80051; 82565; 84520

== ENCOUNTER → 2021-03-11 | Outpatient (CLI) | payer MEDICARE ==
[2021-03-12 05:59] LABS: African American GFR (CKD) 90.3 (60.0-200.0); Anion Gap 9.1 mmol/L (4.00-12.00); Carbon Dioxide 26.9 mmol/L (21.6-31.8); Non-African American GFR(CKD) 77.9 (60.0-200.0); Potassium 4.9 mmol/L (3.5-5.5)
== END | disposition home or self-care (01) ==
LOC: LABWHC1 10:56
PROVIDERS: ATTEND Internal Medicine Interventional Cardiology
DX: I50.42 Chronic combined systolic (congestive) and diastolic (congestive) heart failure (principal); R60.9 Edema, unspecified
CPT/HCPCS: 36415; 80051; 82565; 84520

== ENCOUNTER 2021-04-05 17:24 | Inpatient (IN) | payer MEDICARE ==
[2021-04-05 17:43] LABS: Glucose,Whole Blood 212 mg/dL (75-99)
[2021-04-05] MEDS ORDERED: SODIUM CHLORIDE 0.9% 500 ML 500 ML IV STA (17:49)
[2021-04-05] MEDS ORDERED: SODIUM CHLORIDE 0.9% 1,000 ML IV STA (17:49)
[2021-04-05] MEDS ORDERED: KETOROLAC 15 MG/ML 1 ML VIAL IVP STA (17:50)
[2021-04-05] MEDS ORDERED: ONDANSETRON 4 MG/2 ML VIAL IVP STA (17:51)
[2021-04-05 18:18] LABS: Basophils % (A) 0 %; Eosinophils # (A) 0.1 k/uL (0-0.7); Eosinophils % (A) 1 %; HCT 39.6 % (34.0-46.0); HGB 13.2 gm/dL (11.4-16.0); Lymphocytes # (A) 0.4 k/uL (1.0-4.8); Lymphocytes % (A) 7 %; MCH 34.4 pg (25.0-35.0); MCHC 33.4 g/dL (31.0-37.0); MCV 103.1 fL (80.0-100.0); Macrocytosis Slight; Mean Platelet Volume 8.1; Monocytes # (A) 0.4 k/uL (0-1.0); Monocytes % (A) 6 %; Neutrophils # (A) 5.5 k/uL (1.3-7.7); Neutrophils % (A) 84 %; Platelet Count 141 k/uL (150-450); RBC 3.84 m/uL (3.80-5.40); RDW 12.7 % (11.5-15.5); WBC 6.5 k/uL (3.8-10.6)
[2021-04-05 18:28] LABS: Albumin 3.9 g/dL (3.5-5.0); Potassium 4.1 mmol/L (3.5-5.1); Total Bilirubin 0.9 mg/dL (0.2-1.3); Total Protein 7.3 g/dL (6.3-8.2)
[2021-04-05 18:36] LABS: INR 1.1 (<1.2)
[2021-04-05 18:37] LABS: Prothrombin Time 11.4 sec (9.0-12.0)
--- NOTE | 2021-04-05 18:42 | XR ---
EXAMINATION TYPE: XR chest 2V DATE OF EXAM: 04/05/2021 COMPARISON: NONE HISTORY: 02/25/2021 TECHNIQUE: 2 views FINDINGS: Heart is enlarged. There is mild pulmonary congestion. There is left axillary pacemaker. Th ere are chest leads. Bony thorax is intact. There are no hilar masses. There is slight blunting of th e costophrenic angles. IMPRESSION: There is evidence for mild congestive heart failure with increased congestion compared to last exam there is probably underlying pulmonary fibrosis.
--- NOTE | 2021-04-05 19:14 | ED ---
General Adult HPI - General Chief complaint: Syncope Stated complaint: low blood pressure Time Seen by Provider: 04/05/21 17:37 Source: patient Mode of arrival: ambulatory Limitations: no limitations - History of Present Illness Initial comments: This 65-year-old female presents complaining of some nausea and vomiting. She states that she has chronic pain into her left trapezius region. When this flares up then she will have nausea and vomiting and passed out. She went through cardiac rehab today and this flared up her pain and then she started v omiting. She had 2 episodes of syncope after vomiting while at home prior to arrival. Her systolic blood pressure was apparently 84 at one point in time. She denies any anterior chest pain. She does have some mild shortness of breath and history of congestive heart failure. She has a history of open heart surgery around 2001. She has had a couple of cardiac stents in the past year with additional 2 vessels that may need further work in the future. She denies any diarrhea, fevers, or abdominal pain. No other complaints or modifying factors. - Related Data Home Medications Medication Instructions Recorded Confirmed LORazepam [Ativan] 1 mg PO HS 02/02/14 02/23/21 Omeprazole [PriLOSEC] 40 mg PO HS 02/02/14 02/23/21 Aspirin EC [Ecotrin Low Dose] 81 mg PO DAILY 11/12/20 02/23/21 Cholecalciferol [Vitamin D3 (25 50 mcg PO HS 11/12/20 02/23/21 Mcg = 1000 Iu)] Docusate [Colace] 100 mg PO DAILY PRN 11/12/20 02/23/21 Insulin Aspart (For Pump) [NovoLOG 0.01 unit SQ-PUMP CONTINUOUS 11/12/20 02/23/21 (For Pump)] Levothyroxine Sodium [Synthroid] 100 mcg PO MOTUWETHFRSA 11/12/20 02/23/21 Montelukast [Singulair] 10 mg PO DAILY 11/12/20 02/23/21 Multivit with Calcium,Iron,Min 1 tab PO HS 11/12/20 02/23/21 [Women's Multivitamin] Sacubitril/Valsartan [Entresto 49 1 tab PO BID 11/12/20 02/23/21 mg-51 mg Tablet] buPROPion HCL [buPROPion HCL Xl] 150 mg PO DAILY 12/23/20 02/23/21 Cyclobenzaprine [Flexeril] 10 mg PO BID 01/13/21 02/23/21 Metoclopramide HCl [Reglan] 5 mg PO TID PRN 01/13/21 02/23/21 Atorvastatin [Lipitor] 20 mg PO HS 02/23/21 02/23/21 carvediloL [Coreg] 3.125 mg PO BID-W/MEALS 02/23/21 02/23/21 Previous Rx's Medication Instructions Recorded polyethylene glycoL 3350 [Miralax] 17 gm PO DAILY PRN #15 packet 12/25/20 Clopidogrel [Plavix] 75 mg PO DAILY 90 Days #90 tab 01/18/21 Folic Acid 1 mg PO DAILY@1200 #30 tab 02/25/21 Furosemide [Lasix] 20 mg PO DAILY 30 Days #30 tab 02/25/21 Thiamine [Vitamin B-1] 100 mg PO DAILY@1200 #30 tab 02/25/21 Allergies Allergy/AdvReac Type Severity Reaction Status Date / Time adhesive Allergy Unknown Verified 04/05/21 19:10 latex Allergy Unknown Verified 04/05/21 19:10 amoxicillin [From Augmentin] AdvReac Nausea & Verified 04/05/21 19:10 Vomiting clarithromycin [From Biaxin] AdvReac Nausea & Verified 04/05/21 19:10 Vomiting clavulanic acid AdvReac Nausea & Verified 04/05/21 19:10 [From Augmentin] Vomiting codeine AdvReac Nausea & Verified 04/05/21 19:10 Vomiting nitrofurantoin AdvReac Nausea & Verified 04/05/21 19:10 [From Macrobid] Vomiting Review of Systems ROS Statement: Those systems with pertinent positive or pertinent negative responses have been documented in the HPI. ROS Other: All systems not noted in ROS Statement are negative. Past Medical History Past Medical History: Coronary Artery Disease (CAD), Heart Failure, Diabetes Mellitus, GERD/Reflux, Hyperlipidemia, Hypertension, Myocardial Infarction ([place]), Thyroid Disorder Additional Past Medical History / Comment(s): Fribrosis in september 2020 Last Myocardial Infarction Date:: 2001 History of Any Multi-Drug Resistant Organisms: None Reported Past Surgical History: Section, Coronary Bypass/CABG, Heart Catheterization With Stent, Hysterectomy, Tubal Ligation Additional Past Surgical History / Comment(s): cataract surgery, hand surgery, recent heart stent 02/12 Past Anesthesia/Blood Transfusion Reactions: Postoperative Nausea & Vomiting (PONV) Date of Last Stent Placement:: 02-12-21 Past Psychological History: Anxiety Smoking Status: Former smoker Past Alcohol Use History: Rare Past Drug Use History: None Reported - Past Family History Father Family Medical History: Myocardial Infarction ([place]) Brother(s) Additional Family Medical History / Comment(s): Heart surgery General Exam - General Exam Comments Initial Comments: GENERAL: The patient is well nourished and well hydrated. VITAL SIGNS: Heart rate, blood pressure, respiratory rate reviewed as recorded in nurse's notes. EYES: Pupils are round and reactive. Extraocular movements are intact. No conjunctival / lid redness or swelling. ENT: No external evidence of injury, swelling, or ecchymosis. Airway is patent. Throat is clear. NECK: Nontender. No swelling or evidence of injury. No subcutaneous emphysema. Trachea is midline. No thyroid mass. HEART: Regular rate and rhythm. Good peripheral pulses. LUNGS/CHEST: Breath sounds clear and equal bilaterally. No rales, rhonchi, or wheezes. No ecchymosis, subcutaneous emphysema, or tenderness. ABDOMEN: Abdomen soft without tenderness. No palpable masses or organomegaly. No peritoneal signs. No abdominal wall swelling or ecchymosis. EXTREMITIES: No extremity tenderness. Normal muscle tone and function. No thoracolumbar tenderness. There is some tenderness noted into the left trapezius muscle with mild muscle spasm. NEUROLOGIC: Sensation is grossly intact. Cranial nerve exam reveals face is symmetrical, tongue is midline, speech is clear. SKIN: No abrasions or ecchymosis is noted. No induration or masses noted. PSYCHIATRIC: Alert and oriented. Appropriate behavior and judgment. Limitations: no limitations Course Vital Signs 04/05/21 17:29 Temperature 98.7 F Pulse Rate 121 H Respiratory 18 Rate Blood Pressure 90/60 O2 Sat by Pulse 99 Oximetry Medical Decision Making - Medical Decision Making The patient was seen and examined. All diagnostics were reviewed. The patient had an EKG done which shows a normal sinus rhythm at a rate of 83. There is a bifascicular block including a right bundle-branch block and left anterior fa scicular block. There is associated changes related to the bifascicular block. The patient has a NH interval of 160, QRS of 150, and QTc interval of 509. An IV is established and she is hydrated. The laboratory came back showing a significant decrease in sodium at 117 and the decrease in the chloride at approximately 80. The remainder of labs are reviewed. The patient also had a chest x-ray which shows a degree of congestive heart failure which may be somewhat worse than previous. She is given IV Zofran and has relief of her nausea. She is given IV Toradol with relief of her pain. [place] will be ordered orally as well. She is hydrated. The case is discussed with Yu for [facility] and she is agreeable with admission and nephrology consult. - Lab Data Result diagrams: 04/05/21 18:10 04/05/21 18:10 Lab Results 04/05/21 04/05/21 04/05/21 Range/Units 17:41 18:10 18:10 WBC 6.5 (3.8-10.6) k/uL RBC 3.84 (3.80-5.40) m/uL Hgb 13.2 (11.4-16.0) gm/dL Hct 39.6 (34.0-46.0) % MCV 103.1 H (80.0-100.0) fL MCH 34.4 (25.0-35.0) pg MCHC 33.4 (31.0-37.0) g/dL RDW 12.7 (11.5-15.5) % Plt Count 141 L (150-450) k/uL MPV 8.1 Neutrophils % 84 % Lymphocytes % 7 % Monocytes % 6 % Eosinophils % 1 % Basophils % 0 % Neutrophils # 5.5 (1.3-7.7) k/uL Lymphocytes # 0.4 L (1.0-4.8) k/uL Monocytes # 0.4 (0-1.0) k/uL Eosinophils # 0.1 (0-0.7) k/uL Basophils # 0.0 (0-0.2) k/uL Macrocytosis Slight PT 11.4 (9.0-12.0) sec INR 1.1 (<1.2) APTT 28.0 (22.0-30.0) sec Sodium (137-145) mmol/L Potassium (3.5-5.1) mmol/L Chloride (98-107) mmol/L Carbon Dioxide (22-30) mmol/L Anion Gap mmol/L BUN (7-17) mg/dL Creatinine (0.52-1.04) mg/dL Est GFR (CKD-EPI)AfAm (>60 ml/min/1.73 sqM) Est GFR (CKD-EPI)NonAf (>60 ml/min/1.73 sqM) Glucose (74-99) mg/dL POC Glucose (mg/dL) 212 H (75-99) mg/dL POC Glu Can Coverer ID Liam Negron Calcium (8.4-10.2) mg/dL Total Bilirubin (0.2-1.3) mg/dL AST (14-36) U/L ALT (4-34) U/L Alkaline Phosphatase (38-126) U/L Troponin I (0.000-0.034) ng/mL Total Protein (6.3-8.2) g/dL Albumin (3.5-5.0) g/dL 04/05/21 04/05/21 Range/Units 18:10 18:10 WBC (3.8-10.6) k/uL RBC (3.80-5.40) m/uL Hgb (11.4-16.0) gm/dL Hct (34.0-46.0) % MCV (80.0-100.0) fL MCH (25.0-35.0) pg MCHC (31.0-37.0) g/dL RDW (11.5-15.5) % Plt Count (150-450) k/uL MPV Neutrophils % % Lymphocytes % % Monocytes % % Eosinophils % % Basophils % % Neutrophils # (1.3-7.7) k/uL Lymphocytes # (1.0-4.8) k/uL Monocytes # (0-1.0) k/uL Eosinophils # (0-0.7) k/uL Basophils # (0-0.2) k/uL Macrocytosis PT (9.0-12.0) sec INR (<1.2) APTT (22.0-30.0) sec Sodium 117 L* (137-145) mmol/L Potassium 4.1 (3.5-5.1) mmol/L Chloride 80 L (98-107) mmol/L Carbon Dioxide 24 (22-30) mmol/L Anion Gap 13 mmol/L BUN 16 (7-17) mg/dL Creatinine 0.83 (0.52-1.04) mg/dL Est GFR (CKD-EPI)AfAm 87 (>60 ml/min/1.73 sqM) Est GFR (CKD-EPI)NonAf 75 (>60 ml/min/1.73 sqM) Glucose 264 H (74-99) mg/dL POC Glucose (mg/dL) (75-99) mg/dL POC Glu Can Coverer ID Calcium 9.0 (8.4-10.2) mg/dL Total Bilirubin 0.9 (0.2-1.3) mg/dL AST 42 H (14-36) U/L ALT 24 (4-34) U/L Alkaline Phosphatase 122 (38-126) U/L Troponin I 0.022 (0.000-0.034) ng/mL Total Protein 7.3 (6.3-8.2) g/dL Albumin 3.9 (3.5-5.0) g/dL Disposition Clinical Impression: Bifascicular block, Syncope, Trapezius muscle spasm, Nausea and vomiting, CHF (congestive heart failure), Hyponatremia, Hypochloremia Disposition: ADMITTED IP TO THIS HOSP Condition: Fair Is patient prescribed a controlled substance at d/c from ED?: No Referrals: Alexandra Brown MD [Primary Care Provider] - 1-2 days Time of Disposition: 19:23 Decision Date: 04/05/21 Decision Time: 19:23
[2021-04-05] MEDS ORDERED: SODIUM CHLORIDE 0.9% 500 ML IV STA (19:15)
[2021-04-05] MEDS ORDERED: ONDANSETRON 4 MG/2 ML VIAL IVP PRN (19:24)
[2021-04-05] MEDS ORDERED: FUROSEMIDE 10 MG/ML 4 ML VIAL IV STA (19:24)
[2021-04-05] MEDS ORDERED: traMADol 50 MG TAB PO PRN (19:24)
[2021-04-05] MEDS ORDERED: NALOXONE 0.4 MG/ML 1 ML VIAL IV PRN (19:24)
[2021-04-05] MEDS ORDERED: DOCUSATE 100 MG CAP PO PRN (19:32)
[2021-04-05] MEDS ORDERED: polyethylene glycoL 3350 17 GM POWD.PACK PO PRN (19:32)
[2021-04-05] MEDS ORDERED: CYCLOBENZAPRINE 10 MG TAB PO PRN (19:32)
[2021-04-05] MEDS ORDERED: metOLazone 2.5 MG TAB PO PRN (19:32)
[2021-04-05] MEDS ORDERED: traMADol 50 MG TAB PO STA (19:35)
[2021-04-05 20:43] LABS: Glucose,Whole Blood 266 mg/dL (75-99)
[2021-04-05] MEDS ORDERED: Insulin Aspart (For Pump) 100 UNIT/ML VIAL SQ-PUMP SCH (21:00)
[2021-04-05] MEDS: LORazepam 1 MG TAB PO SCH (22:19)
[2021-04-05] MEDS: ATORVASTATIN 20 MG TAB PO SCH (22:20)
[2021-04-05] MEDS: SACUBITRIL/VALSARTAN 49 MG-51 MG TABLET PO SCH (22:21)
[2021-04-05] MEDS: CHOLECALCIFEROL 25 MCG (1000 IU) TABLET PO SCH (22:23)
[2021-04-05] MEDS: MULTIVITAMINS, THERA 1 EACH TAB PO SCH (22:23)
[2021-04-05] MEDS ORDERED: INSULIN PUMP BASAL RATES 1 EACH MISC MISCELLANE PRN (23:10)
[2021-04-05] MEDS ORDERED: INSULIN ASPART (NovoLOG) 100 UNIT/ML VIAL SQ PRN (23:10)
[2021-04-05] MEDS ORDERED: INSPUCOR MISCELLANE PRN (23:10)
[2021-04-06 05:32] LABS: African American GFR (CKD) >90 (>60 ml/min/1.73 sqM); Anion Gap 9 mmol/L; Blood Urea Nitrogen 17 mg/dL (7-17); Calcium 8.6 mg/dL (8.4-10.2); Carbon Dioxide 29 mmol/L (22-30); Chloride 84 mmol/L (98-107); Glucose 110 mg/dL (74-99); Magnesium 1.5 mg/dL (1.6-2.3); Non-African American GFR(CKD) 81 (>60 ml/min/1.73 sqM); Phosphorus 4.7 mg/dL (2.5-4.5); Potassium 3.7 mmol/L (3.5-5.1); Sodium 122 mmol/L (137-145)
[2021-04-06 06:09] LABS: Glucose,Whole Blood 93 mg/dL (75-99)
[2021-04-06] MEDS: carvediloL 3.125 MG TAB PO SCH ×2 (06:32→17:25)
[2021-04-06] MEDS: LEVOTHYROXINE 100 MCG TAB PO SCH (06:32)
[2021-04-06] MEDS: PANTOPRAZOLE 40 MG TABLET PO SCH (06:32)
[2021-04-06] MEDS: MAGNESIUM SULFATE-D5W PMX 1 GM in DEXTROSE/WATER 1 100ML.BAG IVPB SCH ×2 (08:22→10:01)
[2021-04-06] MEDS: MONTELUKAST 10 MG TAB PO SCH (08:23)
[2021-04-06] MEDS: CLOPIDOGREL 75 MG TAB PO SCH (08:23)
[2021-04-06] MEDS: ASPIRIN 81 MG PO SCH (08:23)
[2021-04-06] MEDS: ENOXAPARIN 40 MG/0.4 ML SYRINGE SQ SCH (08:23)
[2021-04-06] MEDS: FOLIC ACID 1 MG TAB PO SCH (08:23)
[2021-04-06] MEDS: SACUBITRIL/VALSARTAN 49 MG-51 MG TABLET PO SCH ×2 (08:23→20:43)
[2021-04-06] MEDS: INSULIN PUMP MEAL BOLUS 1 UNIT MISC MISCELLANE SCH ×4 (08:25→21:19)
[2021-04-06] MEDS ORDERED: NON FORMULARY DRUG (Ubidecarenone [Co Q-10] 100 MG Capsule) PO SCH (09:00)
[2021-04-06] MEDS ORDERED: FUROSEMIDE 20 MG TAB PO SCH (09:00)
[2021-04-06] MEDS ORDERED: MAGNESIUM SULFATE-D5W PMX 1 GM in DEXTROSE/WATER 1 100ML.BAG IVPB SCH ×2 (09:00→11:00)
[2021-04-06] MEDS: buPROPion XL 150 MG TAB.ER.24H PO SCH (10:00)
--- NOTE | 2021-04-06 10:16 | P.NPCON ---
History of Present Illness - Reason for Consult hyponatremia - History of Present Illness Reason for consultation: Hyponatremia History of present illness: Patient is a 65-year-old female seen in consultation for hyponatremia. Patient presented to the hospital after syncopal episode. Patient states she developed nausea and vomiting which started yesterday morning. She also went to cardiac rehab for the first time yesterday. Patient states she had 2 cardiac stents placed in the months of February and March. She denies chest pain or shortness of breath. She was taking Lasix as well as metolazone at home. She denies any chest pain or shortness of breath. She received IV Lasix as well as IV fluids since admission. Sodium level did improve from 117-122 with IV fluids and IV fluids were subsequently stopped. Repeat sodium level this morning was 121. No more vomiting or diarrhea. Oral intake here. Good urine output. No history of malignancy. Denies drinking excessive fluids. Vital signs are stable. General: The patient appeared well nourished and normally developed. HEENT: Head exam is unremarkable. LUNGS: Breath sounds decreased. HEART: Rate and Rhythm are regular. ABDOMEN: Soft, no distention. EXTREMITITES: No edema. Past Medical History Past Medical History: Coronary Artery Disease (CAD), Heart Failure, Diabetes Mellitus, GERD/Reflux, Hyperlipidemia, Hypertension, Myocardial Infarction ([place]), Thyroid Disorder Additional Past Medical History / Comment(s): Fribrosis in september 2020 Last Myocardial Infarction Date:: 2001 History of Any Multi-Drug Resistant Organisms: None Reported Past Surgical History: Section, Coronary Bypass/CABG, Heart Catheterization With Stent, Hysterectomy, Tubal Ligation Additional Past Surgical History / Comment(s): cataract surgery, hand surgery, recent heart stent 02/12, Heart stent 03/07/2021 Past Anesthesia/Blood Transfusion Reactions: Postoperative Nausea & Vomiting (PONV) Date of Last Stent Placement:: 03/07/2021 Past Psychological History: Anxiety Smoking Status: Former smoker Past Alcohol Use History: Rare Past Drug Use History: None Reported - Past Family History Father Family Medical History: Myocardial Infarction ([place]) Additional Family Medical History / Comment(s): heart surgery Brother(s) Additional Family Medical History / Comment(s): Heart surgery Medications and Allergies Home Medications Medication Instructions Recorded Confirmed Type LORazepam [Ativan] 1 mg PO HS 02/02/14 04/05/21 History Omeprazole [PriLOSEC] 40 mg PO HS 02/02/14 04/05/21 History Aspirin EC [Ecotrin Low Dose] 81 mg PO DAILY 11/12/20 04/05/21 History Cholecalciferol [Vitamin D3 (25 50 mcg PO HS 11/12/20 04/05/21 History Mcg = 1000 Iu)] Docusate [Colace] 100 mg PO DAILY PRN 11/12/20 04/05/21 History Insulin Aspart (For Pump) [NovoLOG 0.01 unit SQ-PUMP CONTINUOUS 11/12/20 04/05/21 History (For Pump)] Levothyroxine Sodium [Synthroid] 100 mcg PO MOTUWETHFRSA 11/12/20 04/05/21 History Montelukast [Singulair] 10 mg PO DAILY 11/12/20 04/05/21 History Multivit with Calcium,Iron,Min 1 tab PO HS 11/12/20 04/05/21 History [Women's Multivitamin] Sacubitril/Valsartan [Entresto 49 1 tab PO BID 11/12/20 04/05/21 History mg-51 mg Tablet] buPROPion HCL [buPROPion HCL Xl] 150 mg PO DAILY 12/23/20 04/05/21 History polyethylene glycoL 3350 [Miralax] 17 gm PO DAILY PRN #15 packet 12/25/20 04/05/21 Rx Cyclobenzaprine [Flexeril] 10 mg PO BID PRN 01/13/21 04/05/21 History Metoclopramide HCl [Reglan] 5 mg PO TID PRN 01/13/21 04/05/21 History Clopidogrel [Plavix] 75 mg PO DAILY 90 Days #90 tab 01/18/21 04/05/21 Rx Atorvastatin [Lipitor] 20 mg PO HS 02/23/21 04/05/21 History carvediloL [Coreg] 3.125 mg PO BID-W/MEALS 02/23/21 04/05/21 History Furosemide [Lasix] 20 mg PO DAILY 30 Days #30 tab 02/25/21 04/05/21 Rx Folic Acid 1 mg PO DAILY 04/05/21 04/05/21 History Ubidecarenone [Co Q-10] 100 mg PO DAILY 04/05/21 04/05/21 History metOLazone 2.5 mg PO DAILY PRN 04/05/21 04/05/21 History Allergies Allergy/AdvReac Type Severity Reaction Status Date / Time adhesive Allergy Unknown Verified 04/05/21 19:10 latex Allergy Unknown Verified 04/05/21 19:10 amoxicillin [From Augmentin] AdvReac Nausea & Verified 04/05/21 19:10 Vomiting clarithromycin [From Biaxin] AdvReac Nausea & Verified 04/05/21 19:10 Vomiting clavulanic acid AdvReac Nausea & Verified 04/05/21 19:10 [From Augmentin] Vomiting codeine AdvReac Nausea & Verified 04/05/21 19:10 Vomiting nitrofurantoin AdvReac Nausea & Verified 04/05/21 19:10 [From Macrobid] Vomiting Physical Exam Vitals: Vital Signs Temp Pulse Pulse Resp BP BP Pulse Ox 04/06/21 08:00 97.7 F 72 16 104/67 94 L 04/06/21 04:00 97.1 F L 72 18 126/66 93 L 04/06/21 02:00 72 18 04/06/21 00:00 97.7 F 72 18 116/71 94 L 04/05/21 20:35 97.0 F L 69 18 116/63 92 L 04/05/21 20:16 64 18 115/64 100 04/05/21 20:00 69 18 04/05/21 19:27 72 18 113/69 93 L 04/05/21 17:29 98.7 F 121 H 18 90/60 99 Intake and Output 04/05/21 04/06/21 04/06/21 22:59 06:59 14:59 Intake Total 540 240 Balance 540 240 Intake: Oral 540 240 Other: Voiding Method Toilet Toilet Toilet # Voids 3 Weight 81.647 kg 80.4 kg Results - Lab Results Most recent lab results Calcium 8.6 mg/dL (8.4-10.2) 04/06/21 04:45 Phosphorus 4.7 mg/dL (2.5-4.5) H 04/06/21 04:45 Magnesium 1.5 mg/dL (1.6-2.3) L 04/06/21 04:45 04/05/21 18:10 04/06/21 08:31 Assessment and Plan Plan: Assessment: 1. Hyponatremia. Initially hypovolemic and improved with IV hydration. Was on diuretics outpatient and also received IV Lasix this admission. Currently appears euvolemic. Sodium level 121 this morning. 2. Chronic systolic CHF with ejection fraction of 30-35%. 3. Hypomagnesemia from poor intake and diuretics. Replaced. 4. Diabetes mellitus. 5. Syncopal episode. Cardiology following. Blood pressure on the lower side. Plan: 1200 mL fluid restriction. Hold off on IV fluids and diuretics at this time. Repeat sodium level at noon. Check TSH. Check serum and urine osmolality and urine sodium level. Follow-up echocardiogram. Check orthostatic vital signs. Thank you for the consultation. I will continue to follow the patient with you during her hospital stay.
--- NOTE | 2021-04-06 11:14 | P.CRDCN ---
History of Present Illness Consult date: 04/06/21 History of present illness: HISTORY OF PRESENT ILLNESS: This is a 65 year old female with a past medical history significant for coronary artery disease with previous CABG x 4 in 2001 and recent PCI, ischemic cardiomyopathy, AICD implantation, hypertension, hyperlipidemia, and diabetes. Patient follows with Dr. Ambriz. We have been asked to see the patient in consultation for syncope. Patient examined at the bedside. It is noted the patient underwent cardiac cath with Dr. Thompson in December 2020 with PCI of the SVG to PDA. Patient states last month she underwent another cardiac cath with Dr. Ambriz and had another stent placed. She states she has been in cardiac rehab since that time. She states she was at cardiac rehab yesterday and was ex periencing a lot of shoulder pain which she states is chronic. She got home and became nauseous and was throwing up and then passed out. She denies biting her tongue. She denies loss of bowel or bladder. Patient currently denies chest pain or pressure. She denies shortness of breath. She denies dizziness or lightheadedness. EKG reveals sinus mechanism. Right bundle branch block. Left anterior f ascicular block. Bifascicular block. Appears similar to previous EKG. Chest xray there is evidence for mild congestive heart failure with increased congestion compared to old exam. There is probably underlying pulmonary fibrosis. Laboratory data: WBC 6.5. Hemoglobin 13.2. Platelet count 141. Sodium 117 on admission. Repeat 121. Potassium 3.7. BUN 17. Creatinine 0.78. Magnesium 1.5. ProBNP 5900. Troponin 0.022. Current home cardiac medications include Entresto 49-51mg BID, Coreg 3.125 mg twice a day, Lasix 20 mg daily, Plavix 75 mg daily, Lipitor 20 mg daily, and aspirin 81 mg daily Most recent echocardiogram obtained in December 2020 revealed ejection fraction 30- 35%. REVIEW OF SYSTEMS: At the time of my exam: CONSTITUTIONAL: Denies fever or chills. HEENT: Denies blurred vision, vision changes, or eye pain. Denies hemoptysis CARDIOVASCULAR: Denies chest pain. Denies orthopnea. Denies PND. Denies palpitations RESPIRATORY: Denies shortness of breath. GASTROINTESTINAL: Denies abdominal pain. Denies nausea or vomiting. HEMATOLOGIC: Denies bleeding disorders. GENITOURINARY: Denies any blood in urine. SKIN: Denies pruitis. Denies rash. PHYSICAL EXAM: VITAL SIGNS: Reviewed. GENERAL: Well-developed in no acute distress. HEENT: Head is normocephalic. Pupils are equal, round. Sclerae anicteric. Mucous membranes of the mouth are moist. Neck supple. No JVD or thyromegaly LUNGS: Respirations even and unlabored. Lungs diminished to auscultation bilaterally. HEART: Regular rate and rhythm. S1 and S2 heard. ABDOMEN: Soft. Nondistended. Nontender. EXTREMITIES: Normal range of motion. No clubbing or cyanosis. Peripheral pulses intact. Trace lower extremity edema NEUROLOGIC: Awake and alert. Oriented x 3. ASSESSMENT: Syncope Nausea and vomiting Hyponatremia Hypomagnesemia Coronary artery disease with PCI SVG to right PDA, December 2020 and additional stenting in February 2021, details unknown History of CABG x 2001 Ischemic cardiomyopathy, status post AICD Hypertension Hyperlipidemia Pulmonary fibrosis Diabetes mellitus PLAN: Obtain 2D echo to assess cardiac structure and function Continue home cardiac medications Monitor sodium levels Obtain orthostatic blood pressures Replace magnesium. Monitor electrolytes Interrogate AICD Further recommendations pending patient course Nurse practitioner note has been reviewed by physician. Signing provider agrees with the documented findings, assessment, and plan of care. Past Medical History Past Medical History: Coronary Artery Disease (CAD), Heart Failure, Diabetes Mellitus, GERD/Reflux, Hyperlipidemia, Hypertension, Myocardial Infarction (AL), Thyroid Disorder Additional Past Medical History / Comment(s): Fribrosis in september 2020 Last Myocardial Infarction Date:: 2001 History of Any Multi-Drug Resistant Organisms: None Reported Past Surgical History: Section, Coronary Bypass/CABG, Heart Catheterization With Stent, Hysterectomy, Tubal Ligation Additional Past Surgical History / Comment(s): cataract surgery, hand surgery, recent heart stent 02/12, Heart stent 03/07/2021 Past Anesthesia/Blood Transfusion Reactions: Postoperative Nausea & Vomiting (PONV) Date of Last Stent Placement:: 03/07/2021 Past Psychological History: Anxiety Smoking Status: Former smoker Past Alcohol Use History: Rare Past Drug Use History: None Reported - Past Family History Father Family Medical History: Myocardial Infarction (AL) Additional Family Medical History / Comment(s): heart surgery Brother(s) Additional Family Medical History / Comment(s): Heart surgery Medications and Allergies Home Medications Medication Instructions Recorded Confirmed Type LORazepam [Ativan] 1 mg PO HS 02/02/14 04/05/21 History Omeprazole [PriLOSEC] 40 mg PO HS 02/02/14 04/05/21 History Aspirin EC [Ecotrin Low Dose] 81 mg PO DAILY 11/12/20 04/05/21 History Cholecalciferol [Vitamin D3 (25 50 mcg PO HS 11/12/20 04/05/21 History Mcg = 1000 Iu)] Docusate [Colace] 100 mg PO DAILY PRN 11/12/20 04/05/21 History Insulin Aspart (For Pump) [NovoLOG 0.01 unit SQ-PUMP CONTINUOUS 11/12/20 04/05/21 History (For Pump)] Levothyroxine Sodium [Synthroid] 100 mcg PO MOTUWETHFRSA 11/12/20 04/05/21 History Montelukast [Singulair] 10 mg PO DAILY 11/12/20 04/05/21 History Multivit with Calcium,Iron,Min 1 tab PO HS 11/12/20 04/05/21 History [Women's Multivitamin] Sacubitril/Valsartan [Entresto 49 1 tab PO BID 11/12/20 04/05/21 History mg-51 mg Tablet] buPROPion HCL [buPROPion HCL Xl] 150 mg PO DAILY 12/23/20 04/05/21 History polyethylene glycoL 3350 [Miralax] 17 gm PO DAILY PRN #15 packet 12/25/20 04/05/21 Rx Cyclobenzaprine [Flexeril] 10 mg PO BID PRN 01/13/21 04/05/21 History Metoclopramide HCl [Reglan] 5 mg PO TID PRN 01/13/21 04/05/21 History Clopidogrel [Plavix] 75 mg PO DAILY 90 Days #90 tab 01/18/21 04/05/21 Rx Atorvastatin [Lipitor] 20 mg PO HS 02/23/21 04/05/21 History carvediloL [Coreg] 3.125 mg PO BID-W/MEALS 02/23/21 04/05/21 History Furosemide [Lasix] 20 mg PO DAILY 30 Days #30 tab 02/25/21 04/05/21 Rx Folic Acid 1 mg PO DAILY 04/05/21 04/05/21 History Ubidecarenone [Co Q-10] 100 mg PO DAILY 04/05/21 04/05/21 History metOLazone 2.5 mg PO DAILY PRN 04/05/21 04/05/21 History Allergies Allergy/AdvReac Type Severity Reaction Status Date / Time adhesive Allergy Unknown Verified 04/05/21 19:10 latex Allergy Unknown Verified 04/05/21 19:10 amoxicillin [From Augmentin] AdvReac Nausea & Verified 04/05/21 19:10 Vomiting clarithromycin [From Biaxin] AdvReac Nausea & Verified 04/05/21 19:10 Vomiting clavulanic acid AdvReac Nausea & Verified 04/05/21 19:10 [From Augmentin] Vomiting codeine AdvReac Nausea & Verified 04/05/21 19:10 Vomiting nitrofurantoin AdvReac Nausea & Verified 04/05/21 19:10 [From Macrobid] Vomiting Physical Exam Vitals: Vital Signs Temp Pulse Pulse Resp BP BP Pulse Ox 04/06/21 08:00 97.7 F 72 16 104/67 94 L 04/06/21 04:00 97.1 F L 72 18 126/66 93 L 04/06/21 02:00 72 18 04/06/21 00:00 97.7 F 72 18 116/71 94 L 04/05/21 20:35 97.0 F L 69 18 116/63 92 L 04/05/21 20:16 64 18 115/64 100 04/05/21 20:00 69 18 04/05/21 19:27 72 18 113/69 93 L 04/05/21 17:29 98.7 F 121 H 18 90/60 99 Intake and Output 04/05/21 04/06/21 04/06/21 22:59 06:59 14:59 Intake Total 540 240 Balance 540 240 Intake: Oral 540 240 Other: Voiding Method Toilet Toilet Toilet # Voids 3 Weight 81.647 kg 80.4 kg Results 04/05/21 18:10 04/06/21 08:31 Cardiac Enzymes 04/05/21 04/05/21 Range/Units 18:10 18:10 AST 42 H (14-36) U/L Troponin I 0.022 (0.000-0.034) ng/mL Coagulation 04/05/21 Range/Units 18:10 PT 11.4 (9.0-12.0) sec APTT 28.0 (22.0-30.0) sec CBC 04/05/21 Range/Units 18:10 WBC 6.5 (3.8-10.6) k/uL RBC 3.84 (3.80-5.40) m/uL Hgb 13.2 (11.4-16.0) gm/dL Hct 39.6 (34.0-46.0) % Plt Count 141 L (150-450) k/uL Comprehensive Metabolic Panel 04/05/21 04/05/21 04/06/21 Range/Units 18:10 22:43 01:39 Sodium 117 L* 117 L* 118 L* (137-145) mmol/L Potassium 4.1 (3.5-5.1) mmol/L Chloride 80 L (98-107) mmol/L Carbon Dioxide 24 (22-30) mmol/L BUN 16 (7-17) mg/dL Creatinine 0.83 (0.52-1.04) mg/dL Glucose 264 H (74-99) mg/dL Calcium 9.0 (8.4-10.2) mg/dL AST 42 H (14-36) U/L ALT 24 (4-34) U/L Alkaline Phosphatase 122 (38-126) U/L Total Protein 7.3 (6.3-8.2) g/dL Albumin 3.9 (3.5-5.0) g/dL 04/06/21 04/06/21 Range/Units 04:45 08:31 Sodium 122 L 121 L (137-145) mmol/L Potassium 3.7 (3.5-5.1) mmol/L Chloride 84 L (98-107) mmol/L Carbon Dioxide 29 (22-30) mmol/L BUN 17 (7-17) mg/dL Creatinine 0.78 (0.52-1.04) mg/dL Glucose 110 H (74-99) mg/dL Calcium 8.6 (8.4-10.2) mg/dL AST (14-36) U/L ALT (4-34) U/L Alkaline Phosphatase (38-126) U/L Total Protein (6.3-8.2) g/dL Albumin (3.5-5.0) g/dL Current Medications Generic Name Dose Route Start Last Admin Trade Name Freq PRN Reason Stop Dose Admin Aspirin 81 mg 04/06/21 09:00 04/06/21 08:23 Aspirin 81 Mg PO 81 mg DAILY KATHLEEN Administration Atorvastatin Calcium 20 mg 04/05/21 21:00 04/05/21 22:20 Atorvastatin 20 Mg Tab PO 20 mg HS KATHLEEN Administration Bupropion HCl 150 mg 04/06/21 09:00 04/06/21 10:00 Bupropion Xl 150 Mg Tab.Er.24h PO 150 mg DAILY KATHLEEN Administration Carvedilol 3.125 mg 04/06/21 07:30 04/06/21 06:32 Carvedilol 3.125 Mg Tab PO 3.125 mg BID-W/MEALS KATHLEEN Administration Cholecalciferol 50 mcg 04/05/21 21:00 04/05/21 22:23 Cholecalciferol 25 Mcg (1000 Iu) Tablet PO 50 mcg HS KATHLEEN Administration Clopidogrel Bisulfate 75 mg 04/06/21 09:00 04/06/21 08:23 Clopidogrel 75 Mg Tab PO 75 mg DAILY KATHLEEN Administration Cyclobenzaprine HCl 10 mg 04/05/21 19:32 Cyclobenzaprine 10 Mg Tab PO BID PRN Muscle Pain Docusate Sodium 100 mg 04/05/21 19:32 Docusate 100 Mg Cap PO DAILY PRN Constipation Enoxaparin Sodium 40 mg 04/06/21 09:00 04/06/21 08:23 Enoxaparin 40 Mg/0.4 Ml Syringe SQ 40 mg DAILY KATHLEEN Administration Folic Acid 1 mg 04/06/21 09:00 04/06/21 08:23 Folic Acid 1 Mg Tab PO 1 mg DAILY KATHLEEN Administration Insulin Aspart 0.01 unit 04/05/21 21:00 04/06/21 00:14 Insulin Aspart (For Pump) 100 Unit/Ml Vial SQ-PUMP Not Given CONTINUOUS KATHLEEN Insulin Aspart 0 unit 04/05/21 23:10 Insulin Aspart (Novolog) 100 Unit/Ml Vial SQ DAILY PRN Insulin Pump Replacement Levothyroxine Sodium 100 mcg 04/06/21 06:30 04/06/21 06:32 Levothyroxine 100 Mcg Tab PO 100 mcg [id number] KATHLEEN Administration Lorazepam 1 mg 04/05/21 21:00 04/05/21 22:19 Lorazepam 1 Mg Tab PO 1 mg HS KATHLEEN Administration Miscellaneous Information 1 each 04/05/21 23:10 Insulin Pump Basal Rates 1 Each Misc MISCELLANE Q6HR PRN Blood Sugar - High Protocol Miscellaneous Information 0 unit 04/06/21 07:30 04/06/21 08:25 Insulin Pump Meal Bolus 1 Unit Misc MISCELLANE 3.6 unit ACHS KATHLEEN Administration Protocol Miscellaneous Information 0 unit 04/05/21 23:10 Insulin Pump Correction Bolus 1 Unit Misc MISCELLANE ACHS PRN Blood Sugar - High Protocol Montelukast Sodium 10 mg 04/06/21 09:00 04/06/21 08:23 Montelukast 10 Mg Tab PO 10 mg DAILY KATHLEEN Administration Multivitamins 1 each 04/05/21 21:00 04/05/21 22:23 Multivitamins, Thera 1 Each Tab PO 1 each HS KATHLEEN Administration Naloxone HCl 0.2 mg 04/05/21 19:24 Naloxone 0.4 Mg/Ml 1 Ml Vial IV Q2M PRN Opioid Reversal Ondansetron HCl 4 mg 04/05/21 19:24 Ondansetron 4 Mg/2 Ml Vial IVP Q4HR PRN Nausea And Vomiting Pantoprazole Sodium 40 mg 04/06/21 07:30 04/06/21 06:32 Pantoprazole 40 Mg Tablet PO 40 mg [id number] KATHLEEN Administration Polyethylene Glycol 17 gm 04/05/21 19:32 Polyethylene Glycol 3350 17 Gm Powd.Pack PO DAILY PRN Constipation Sacubitril/Valsartan 1 each 04/05/21 21:00 04/06/21 08:23 Sacubitril/Valsartan 49 Mg-51 Mg Tablet PO 1 each BID KATHLEEN Administration Tramadol HCl 50 mg 04/05/21 19:24 Tramadol 50 Mg Tab PO Q6H PRN Moderate Pain Intake and Output 04/05/21 04/06/21 04/06/21 22:59 06:59 14:59 Intake Total 540 240 Balance 540 240 Intake: Oral 540 240 Other: Voiding Method Toilet Toilet Toilet # Voids 3 Weight 81.647 kg 80.4 kg 04/05/21 18:10 04/06/21 08:31
[2021-04-06 11:33] LABS: Glucose,Whole Blood 220 mg/dL (75-99)
--- NOTE | 2021-04-06 12:04 | ECHOF ---
Referral Reason:Syncope MEASUREMENTS -------- HEIGHT: 170.2 cm WEIGHT: 80.3 kg BP: RVIDd: 3.2 cm (< 3.3) IVSd: 1.3 cm (0.6 - 1.1) LVIDd: 4.6 cm (3.9 - 5.3) LVPWd: 1.2 cm (0.6 - 1.1) IVSs: 1.5 cm LVIDs: 4.1 cm LVPWs: 1.7 cm LA Diam: 3.4 cm (2.7 - 3.8) LAESV Index (A-L): 19.42 ml/m Ao Diam: 3.3 cm (2.0 - 3.7) AV Cusp: 1.7 cm (1.5 - 2.6) MV EXCURSION: 11.063 mm (> 18.000) MV EF SLOPE: 22 mm/s (70 - 150) EPSS: 1.4 cm MV E Bryson: 0.63 m/s MV DecT: 304 ms MV A Bryson: 0.80 m/s MV E/A Ratio: 0.78 AV maxP.95 mmHg AV meanP.18 mmHg RAP: 5.00 mmHg RVSP: 61.50 mmHg FINDINGS -------- AICD This was a technically adequate study. The left ventricular size is normal. There is mild concentric left ventricular hypertrophy. Overa ll left ventricular systolic function is severely impaired with, an EF between 20 - 25 %. Apical an terior LV wall motion is hypokinetic. Apical lateral LV wall motion is hypokinetic. Apical infe rior LV wall motion is hypokinetic. Apical septum LV wall motion is akinetic. The right ventricle is normal in size. Normal LA size by volume 22+/-6 ml/m2. The right atrium is normal in size. Interatrial and interventricular septum intact. There is mild aortic valve sclerosis. Mild mitral annular calcification present. Mild mitral regurgitation is present. Moderate to severe tricuspid regurgitation present. There is severe pulmonary hypertension. The r ight ventricular systolic pressure, as measured by Doppler, is 61.50mmHg. The pulmonic valve was not well visualized. The aortic root size is normal. IVC Not well visulized. There is no pericardial effusion. CONCLUSIONS -------- 1. The left ventricular size is normal. 2. There is mild concentric left ventricular hypertrophy. 3. Overall left ventricular systolic function is severely impaired with, an EF between 20 - 25 %. 4. Apical anterior LV wall motion is hypokinetic. 5. Apical lateral LV wall motion is hypokinetic. 6. Apical inferior LV wall motion is hypokinetic. 7. Apical septum LV wall motion is akinetic. 8. There is mild aortic valve sclerosis. 9. Mild mitral annular calcification present. 10. Mild mitral regurgitation is present. 11. Moderate to severe tricuspid regurgitation present. 12. There is severe pulmonary hypertension. 13. The right ventricular systolic pressure, as measured by Doppler, is 61.50mmHg. 14. There is no pericardial effusion. BUSINESS OPERATIONS COORDINATOR: Ese Rahman RDCS
[2021-04-06 14:46] LABS: T4, Free (Free Thyroxine) 1.5 ng/dL (0.78-2.19)
[2021-04-06 16:44] LABS: Glucose,Whole Blood 88 mg/dL (75-99)
[2021-04-06] MEDS ORDERED: ACETAMINOPHEN TAB 325 MG TAB PO PRN (17:30)
[2021-04-06] MEDS: LORazepam 1 MG TAB PO SCH (20:43)
[2021-04-06] MEDS: CHOLECALCIFEROL 25 MCG (1000 IU) TABLET PO SCH (20:43)
[2021-04-06] MEDS: ATORVASTATIN 20 MG TAB PO SCH (20:44)
[2021-04-06] MEDS: MULTIVITAMINS, THERA 1 EACH TAB PO SCH (20:44)
[2021-04-06 20:58] LABS: Glucose,Whole Blood 63 mg/dL (75-99)
[2021-04-06 21:16] LABS: Glucose,Whole Blood 77 mg/dL (75-99)
[2021-04-06] MEDS ORDERED: FUROSEMIDE 10 MG/ML 4 ML VIAL IV STA (22:42)
--- NOTE | 2021-04-06 22:53 | P.HPIM ---
History of Present Illness H&P Date: 04/06/21 Chief Complaint: Syncope Patient is a 65-year-old female with a known history of coronary disease status post CABG, recent heart catheterization and stent placement on 03/07/2021, hypertension, hyperlipidemia, history of ID, hypothyroidism and previous history of an anxiety and problem smoker presents to ER with complaints of nausea and vomiting and then passed out. Denied any shaking movements of bladder or bowel incontinence. No complaints of chest pain or shortness of breath. Denies any dizziness or lightheadedness. Chest x-ray showed evidence for mild congestive heart failure with increasing congestion compared to last exam. There is probably underlying pulmonary fibrosis. EKG showed normal sinus rhythm with right bundle branch block and left anterior fascicular block. Laboratory data showed WBC 6.4 hemoglobin 13.2 MCV 103.1 and platelets 141, lymphocytes 0.4 Sodium level was 117, potassium 4.1 chloride 80 BUN 16 and creatinine 0.83 and blood sugar is 264 AST 42 ALT 24 and alk phos 122 Troponin 0 0.022 proBNP 5900 Coronavirus PCR not detected 2D echocardiogram in December 2020 showed ejection fraction 30 to 35%. Review of Systems Constitutional: No fever no chills. Patient does have generalized weakness.. Abdomen: Patient does have nausea and vomiting. No diarrhea. No abdominal pain.. Cardiovascular: Patient denies any chest pain or short of breath no palpitations. Respiratory: patient denied any cough or sputum production. No shortness of breath Neurologic: Patient denied any numbness or tingling headache. Musculoskeletal: Patient denies any complaints of joint swelling or deformity. Skin: Negative Psychiatric: Negative Endocrine: No heat or cold intolerance. No recent weight gain. Genitourinary: No dysuria or hematuria. All other 14 point ROS negative except the above Past Medical History Past Medical History: Coronary Artery Disease (CAD), Heart Failure, Diabetes Mellitus, GERD/Reflux, Hyperlipidemia, Hypertension, Myocardial Infarction (ID), Thyroid Disorder Additional Past Medical History / Comment(s): Fribrosis in september 2020 Last Myocardial Infarction Date:: 2001 History of Any Multi-Drug Resistant Organisms: None Reported Past Surgical History: Section, Coronary Bypass/CABG, Heart Catheterization With Stent, Hysterectomy, Tubal Ligation Additional Past Surgical History / Comment(s): cataract surgery, hand surgery, recent heart stent 02/12, Heart stent 03/07/2021 Past Anesthesia/Blood Transfusion Reactions: Postoperative Nausea & Vomiting (PONV) Date of Last Stent Placement:: 03/07/2021 Past Psychological History: Anxiety Smoking Status: Former smoker Past Alcohol Use History: Rare Past Drug Use History: None Reported - Past Family History Father Family Medical History: Myocardial Infarction (ID) Additional Family Medical History / Comment(s): heart surgery Brother(s) Additional Family Medical History / Comment(s): Heart surgery Medications and Allergies Home Medications Medication Instructions Recorded Confirmed Type LORazepam [Ativan] 1 mg PO HS 02/02/14 04/05/21 History Omeprazole [PriLOSEC] 40 mg PO HS 02/02/14 04/05/21 History Aspirin EC [Ecotrin Low Dose] 81 mg PO DAILY 11/12/20 04/05/21 History Cholecalciferol [Vitamin D3 (25 50 mcg PO HS 11/12/20 04/05/21 History Mcg = 1000 Iu)] Docusate [Colace] 100 mg PO DAILY PRN 11/12/20 04/05/21 History Insulin Aspart (For Pump) [NovoLOG 0.01 unit SQ-PUMP CONTINUOUS 11/12/20 04/05/21 History (For Pump)] Levothyroxine Sodium [Synthroid] 100 mcg PO MOTUWETHFRSA 11/12/20 04/05/21 History Montelukast [Singulair] 10 mg PO DAILY 11/12/20 04/05/21 History Multivit with Calcium,Iron,Min 1 tab PO HS 11/12/20 04/05/21 History [Women's Multivitamin] buPROPion HCL [buPROPion HCL Xl] 150 mg PO DAILY 12/23/20 04/05/21 History polyethylene glycoL 3350 [Miralax] 17 gm PO DAILY PRN #15 packet 12/25/20 04/05/21 Rx Cyclobenzaprine [Flexeril] 10 mg PO BID PRN 01/13/21 04/05/21 History Metoclopramide HCl [Reglan] 5 mg PO TID PRN 01/13/21 04/05/21 History Clopidogrel [Plavix] 75 mg PO DAILY 90 Days #90 tab 01/18/21 04/05/21 Rx Atorvastatin [Lipitor] 20 mg PO HS 02/23/21 04/05/21 History carvediloL [Coreg] 3.125 mg PO BID-W/MEALS 02/23/21 04/05/21 History Furosemide [Lasix] 20 mg PO DAILY 30 Days #30 tab 02/25/21 04/05/21 Rx Folic Acid 1 mg PO DAILY 04/05/21 04/05/21 History Ubidecarenone [Co Q-10] 100 mg PO DAILY 04/05/21 04/05/21 History metOLazone 2.5 mg PO DAILY PRN 04/05/21 04/05/21 History Sacubitril/Valsartan [Entresto 24 1 tab PO BID 04/06/21 04/06/21 History mg-26 mg Tablet] Allergies Allergy/AdvReac Type Severity Reaction Status Date / Time adhesive Allergy Unknown Verified 04/05/21 19:10 latex Allergy Unknown Verified 04/05/21 19:10 amoxicillin [From Augmentin] AdvReac Nausea & Verified 04/05/21 19:10 Vomiting clarithromycin [From Biaxin] AdvReac Nausea & Verified 04/05/21 19:10 Vomiting clavulanic acid AdvReac Nausea & Verified 04/05/21 19:10 [From Augmentin] Vomiting codeine AdvReac Nausea & Verified 04/05/21 19:10 Vomiting nitrofurantoin AdvReac Nausea & Verified 04/05/21 19:10 [From Macrobid] Vomiting Physical Exam Vitals: Vital Signs Temp Pulse Pulse Resp BP BP Pulse Ox 04/06/21 08:00 97.7 F 72 16 104/67 94 L 04/06/21 04:00 97.1 F L 72 18 126/66 93 L 04/06/21 02:00 72 18 04/06/21 00:00 97.7 F 72 18 116/71 94 L 04/05/21 20:35 97.0 F L 69 18 116/63 92 L 04/05/21 20:16 64 18 115/64 100 04/05/21 20:00 69 18 04/05/21 19:27 72 18 113/69 93 L 04/05/21 17:29 98.7 F 121 H 18 90/60 99 Intake and Output 04/05/21 04/06/21 04/06/21 22:59 06:59 14:59 Intake Total 540 240 Balance 540 240 Intake: Oral 540 240 Other: Voiding Method Toilet Toilet Toilet # Voids 3 Weight 81.647 kg 80.4 kg PHYSICAL EXAMINATION: Patient is lying in the bed comfortably, no acute distress, awake alert and oriented.. HEENT: Normocephalic. Neck is supple. Pupils reactive. Nostrils clear. Oral cavity is moist. Neck reveals no JVD, carotid bruits, or thyromegaly. CHEST EXAMINATION: Trachea is central. Symmetrical expansion. Bibasilar diminished sounds. No wheezing or rhonchi.. Minimal right basilar crackles. CARDIAC: Normal S1, S2 with no gallops. No murmurs ABDOMEN: Soft. Bowel sounds normal. No organomegaly. No abdominal bruits. Extremities: trace edema. No clubbing or cyanosis Neurologically awake, alert, oriented x3 with well-coordinated movements. No focal deficits noted Skin: No rash or skin lesions. Psychiatric: Cooperative. Nonsuicidal Musculoskeletal: No joint swelling or deformity. Normal range of motion. Results CBC & Chem 7: 04/05/21 18:10 04/06/21 21:13 Labs: Abnormal Lab Results - Last 24 Hours (Table) 04/05/21 04/05/21 04/05/21 Range/Units 17:41 18:10 18:10 MCV 103.1 H (80.0-100.0) fL Plt Count 141 L (150-450) k/uL Lymphocytes # 0.4 L (1.0-4.8) k/uL Sodium 117 L* (137-145) mmol/L Chloride 80 L (98-107) mmol/L Glucose 264 H (74-99) mg/dL POC Glucose (mg/dL) 212 H (75-99) mg/dL Phosphorus (2.5-4.5) mg/dL Magnesium (1.6-2.3) mg/dL AST 42 H (14-36) U/L 04/05/21 04/05/21 04/06/21 Range/Units 20:42 22:43 01:39 MCV (80.0-100.0) fL Plt Count (150-450) k/uL Lymphocytes # (1.0-4.8) k/uL Sodium 117 L* 118 L* (137-145) mmol/L Chloride (98-107) mmol/L Glucose (74-99) mg/dL POC Glucose (mg/dL) 266 H (75-99) mg/dL Phosphorus (2.5-4.5) mg/dL Magnesium (1.6-2.3) mg/dL AST (14-36) U/L 04/06/21 04/06/21 Range/Units 04:45 08:31 MCV (80.0-100.0) fL Plt Count (150-450) k/uL Lymphocytes # (1.0-4.8) k/uL Sodium 122 L 121 L (137-145) mmol/L Chloride 84 L (98-107) mmol/L Glucose 110 H (74-99) mg/dL POC Glucose (mg/dL) (75-99) mg/dL Phosphorus 4.7 H (2.5-4.5) mg/dL Magnesium 1.5 L (1.6-2.3) mg/dL AST (14-36) U/L Thrombosis Risk Factor Assmnt - DVT/VTE Prophylaxis DVT/VTE Prophylaxis: Pharmacologic Prophylaxis ordered - Choose All That Apply Each Risk Factor Represents 2 Points: Age 61-74 years Thrombosis Risk Factor Assessment Total Risk Factor Score: 2 Thrombosis Risk Factor Assessment Level: Low Risk Assessment and Plan Assessment: Severe hyponatremia 117 on admission. Likely hypovolemic with nausea and vomiting and Lasix use. Nausea and vomiting Acute syncopal episode. Possible orthostatic hypotension. Hypomagnesemia. Replaced. Mild acute on chronic CHF with systolic dysfunction Coronary disease history of present cardiac catheterization with stent placement in February 2021 History of coronary disease in 2001 quadruple bypass Ischemic cardiomyopathy ejection fraction 30 to 35% status post AICD Hypertension Hyperlipidemia Diabetes type 2 with hyperglycemia Pulmonary fibrosis DVT prophylaxis with Lovenox subcu Plan: Patient was given IV fluid bolus in the ER with improvement in blood pressure. Sodium level improved to 120 today. Serum osmolality is low at 258. IV fluids on hold and patient was advised to increase solute diet and restrict f free water. Patient was given a dose of IV Lasix in the ER./ Lasix is on hold. Monitor sodium level closely. Nephrology and cardiology is on board. 2D echocardiogram is ordered. Continue with cardiac medications including aspirin, Plavix statins and beta-blockers. Follow-up TSH level. Prognosis guarded with multiple medical problems and comorbid conditions. Time with Patient: Greater than 30
[2021-04-07 02:35] LABS: Glucose,Whole Blood 244 mg/dL (75-99)
[2021-04-07 06:04] LABS: Glucose,Whole Blood 197 mg/dL (75-99)
--- NOTE | 2021-04-07 06:42 | XR ---
EXAMINATION TYPE: XR chest 1V DATE OF EXAM: 04/07/2021 CLINICAL HISTORY: Difficulty breathing progress study. TECHNIQUE: Single AP portable upright view of the chest is obtained. COMPARISON: Chest x-ray from 2 days earlier and older studies. Chest CT February 24, 2021 FINDINGS: There is cardiomegaly with dual lead pacemaker/defibrillator. There are chronic parenchyma l changes bilaterally with increased basilar and peripheral opacities redemonstrated. No pleural effu cindy or pneumothorax seen bilaterally. Osseous structures are intact. IMPRESSION: Cardiomegaly and chronic parenchymal changes redemonstrated. Areas of edema and/or infilt rate in the periphery and the bases of both lungs may be present. No significant change from most rec ent studies.
[2021-04-07 07:00] LABS: Basophils % (A) 0 %; Eosinophils # (A) 0.1 k/uL (0-0.7); Eosinophils % (A) 1 %; HCT 38.1 % (34.0-46.0); HGB 12.6 gm/dL (11.4-16.0); Lymphocytes # (A) 0.6 k/uL (1.0-4.8); Lymphocytes % (A) 15 %; MCH 34.4 pg (25.0-35.0); MCHC 33.2 g/dL (31.0-37.0); MCV 103.5 fL (80.0-100.0); Macrocytosis Slight; Mean Platelet Volume 7.7; Monocytes # (A) 0.5 k/uL (0-1.0); Monocytes % (A) 12 %; Neutrophils # (A) 2.7 k/uL (1.3-7.7); Neutrophils % (A) 68 %; Platelet Count 151 k/uL (150-450); RBC 3.68 m/uL (3.80-5.40); RDW 12.7 % (11.5-15.5)
[2021-04-07] MEDS: PANTOPRAZOLE 40 MG TABLET PO SCH (07:06)
[2021-04-07] MEDS: carvediloL 3.125 MG TAB PO SCH ×2 (07:06→16:48)
[2021-04-07] MEDS: LEVOTHYROXINE 100 MCG TAB PO SCH (07:06)
[2021-04-07 07:57] LABS: African American GFR (CKD) >90 (>60 ml/min/1.73 sqM); Anion Gap 7 mmol/L; Blood Urea Nitrogen 14 mg/dL (7-17); Calcium 8.4 mg/dL (8.4-10.2); Carbon Dioxide 32 mmol/L (22-30); Chloride 84 mmol/L (98-107); Glucose 182 mg/dL (74-99); Non-African American GFR(CKD) >90 (>60 ml/min/1.73 sqM); Potassium 3.5 mmol/L (3.5-5.1); Sodium 123 mmol/L (137-145)
[2021-04-07] MEDS: INSULIN PUMP MEAL BOLUS 1 UNIT MISC MISCELLANE SCH ×4 (08:49→22:23)
[2021-04-07] MEDS ORDERED: FUROSEMIDE 10 MG/ML 4 ML VIAL IV STA (10:04)
--- NOTE | 2021-04-07 10:05 | P.PN ---
Subjective Patient is seen in follow-up for hyponatremia. Sodium level 123 this morning. Oral intake fair. Nonoliguric. Received IV Lasix again last night. Vital signs are stable. General: The patient appeared well nourished and normally developed. HEENT: Head exam is unremarkable. Neck is without jugular venous distension. LUNGS: Breath sounds decreased. HEART: Rate and Rhythm are regular. ABDOMEN: Soft, no distention. EXTREMITITES: Trace edema. Objective - Vital Signs Vital signs: Vital Signs Temp 97.4 F L 04/07/21 04:00 Pulse 68 04/07/21 04:00 Resp 18 04/07/21 04:00 BP 148/66 04/07/21 04:00 Pulse Ox 98 04/07/21 08:15 Intake & Output 04/06/21 04/07/21 04/07/21 18:59 06:59 18:59 Intake Total 600 Balance 600 Weight 80.2 kg Intake: Oral 600 Other: Voiding Method Toilet Toilet # Voids 1 1 - Labs CBC & Chem 7: 04/07/21 06:38 04/07/21 06:38 Labs: Abnormal Lab Results - Last 24 Hours (Table) 04/06/21 04/06/21 04/06/21 Range/Units 04:45 11:24 11:31 RBC (3.80-5.40) m/uL MCV (80.0-100.0) fL Lymphocytes # (1.0-4.8) k/uL Sodium 118 L* (137-145) mmol/L Chloride (98-107) mmol/L Carbon Dioxide (22-30) mmol/L Glucose (74-99) mg/dL POC Glucose (mg/dL) 220 H (75-99) mg/dL Hemoglobin A1c 8.3 H (4.0-6.0) % Osmolality 258 L (280-301) mosm/kg Magnesium (1.6-2.3) mg/dL TSH 5.070 H (0.465-4.680) mIU/L 04/06/21 04/06/21 04/06/21 Range/Units 17:01 20:57 21:13 RBC (3.80-5.40) m/uL MCV (80.0-100.0) fL Lymphocytes # (1.0-4.8) k/uL Sodium 119 L* 120 L (137-145) mmol/L Chloride (98-107) mmol/L Carbon Dioxide (22-30) mmol/L Glucose (74-99) mg/dL POC Glucose (mg/dL) 63 L (75-99) mg/dL Hemoglobin A1c (4.0-6.0) % Osmolality (280-301) mosm/kg Magnesium (1.6-2.3) mg/dL TSH (0.465-4.680) mIU/L 04/07/21 04/07/21 04/07/21 Range/Units 02:34 06:02 06:38 RBC (3.80-5.40) m/uL MCV (80.0-100.0) fL Lymphocytes # (1.0-4.8) k/uL Sodium (137-145) mmol/L Chloride (98-107) mmol/L Carbon Dioxide (22-30) mmol/L Glucose (74-99) mg/dL POC Glucose (mg/dL) 244 H 197 H (75-99) mg/dL Hemoglobin A1c (4.0-6.0) % Osmolality (280-301) mosm/kg Magnesium 1.5 L (1.6-2.3) mg/dL TSH (0.465-4.680) mIU/L 04/07/21 04/07/21 Range/Units 06:38 06:38 RBC 3.68 L (3.80-5.40) m/uL MCV 103.5 H (80.0-100.0) fL Lymphocytes # 0.6 L (1.0-4.8) k/uL Sodium 123 L (137-145) mmol/L Chloride 84 L (98-107) mmol/L Carbon Dioxide 32 H (22-30) mmol/L Glucose 182 H (74-99) mg/dL POC Glucose (mg/dL) (75-99) mg/dL Hemoglobin A1c (4.0-6.0) % Osmolality (280-301) mosm/kg Magnesium (1.6-2.3) mg/dL TSH (0.465-4.680) mIU/L Assessment and Plan Plan: Assessment: 1. Hyponatremia. Slightly hypervolemic now. Sodium level 123 this morning. TSH slightly high. Urine osmolality 286. 2. Chronic systolic CHF with ejection fraction of 20-25% with moderate to severe tricuspid regurgitation and severe pulmonary hypertension. 3. Hypomagnesemia from poor intake and diuretics. 4. Diabetes mellitus. 5. Syncopal episode. Cardiology following. Blood pressure stable. Standing blood pressure not low. Plan: 1200 mL fluid restriction. Encouraged oral intake. Repeat IV Lasix 40 mg once now. Repeat labs in the morning. Follow-up urine sodium.
[2021-04-07] MEDS: SACUBITRIL/VALSARTAN 24 MG-26 MG TABLET PO SCH ×2 (11:10→20:32)
[2021-04-07] MEDS: ASPIRIN 81 MG PO SCH (11:11)
[2021-04-07] MEDS: buPROPion XL 150 MG TAB.ER.24H PO SCH (11:11)
[2021-04-07] MEDS: FOLIC ACID 1 MG TAB PO SCH (11:11)
[2021-04-07] MEDS: CLOPIDOGREL 75 MG TAB PO SCH (11:11)
[2021-04-07] MEDS: MONTELUKAST 10 MG TAB PO SCH (11:11)
[2021-04-07] MEDS: ENOXAPARIN 40 MG/0.4 ML SYRINGE SQ SCH (11:12)
[2021-04-07 11:32] LABS: Glucose,Whole Blood 168 mg/dL (75-99)
[2021-04-07] MEDS: SACUBITRIL/VALSARTAN 49 MG-51 MG TABLET PO SCH (11:52)
--- NOTE | 2021-04-07 11:54 | P.PN ---
Subjective Progress Note Date: 04/07/21 HISTORY OF PRESENT ILLNESS: This is a 65 year old female with a past medical history significant for coronary artery disease with previous CABG x 4 in 2001 and recent PCI, ischemic cardiomyopathy, AICD implantation, hypertension, hyperlipidemia, and diabetes. Patient follows with Dr. Ambriz. We have been asked to see the patient in consultation for syncope. Patient examined at the bedside. It is noted the patient underwent cardiac cath with Dr. Thompson in December 2020 with PCI of the SVG to PDA. Patient states last month she underwent another cardiac cath with Dr. Ambriz and had another stent placed. She states she has been in cardiac rehab since that time. She states she was at cardiac rehab yesterday and was experiencing a lot of shoulder pain which she states is chronic. She got home and became nauseous and was throwing up and then passed out. She denies biting her tongue. She denies loss of bowel or bladder. Patient currently denies chest pain or pressure. She denies shortness of breath. She denies dizziness or lightheadedness. EKG reveals sinus mechanism. Right bundle branch block. Left anterior fascicular block. Bifascicular block. Appears similar to previous EKG. Chest xray there is evidence for mild congestive heart failure with increased congestion compared to old exam. There is probably underlying pulmonary fibrosis. Laboratory data: WBC 6.5. Hemoglobin 13.2. Platelet count 141. Sodium 117 on admission. Repeat 121. Potassium 3.7. BUN 17. Creatinine 0.78. Magnesium 1.5. ProBNP 5900. Troponin 0.022. Current home cardiac medications include Entresto 49-51mg BID, Coreg 3.125 mg twice a day, Lasix 20 mg daily, Plavix 75 mg daily, Lipitor 20 mg daily, and aspirin 81 mg daily Most recent echocardiogram obtained in December 2020 revealed ejection fraction 30- 35%. Addendum entered and electronically signed by Kaleigh Delcid NP-C 04/06/21 14:47: Pacemaker interrogation reviewed and is unremarkable Records from [facility] reviewed. Patient underwent cardiac catheterization in February 2021 at [facility] revealin. 80% stenosis in the proximal portion of the SVG to diagonal with drug eluting stent placement 2. Residual disease in the ostial left circumflex and OM1 (intervention to be scheduled at a later date per Dr. Ambriz). 3. Patent ANTUNEZ to LAD. 04/07/2021 Patient examined this morning at the bedside. Patient denies chest pain or pressure. Denies shortness of breath. Sodium improved to 123. Magnesium remains low at 1.5. Orthostatic blood pressures unremarkable. Echocardiogram completed revealed ejection fraction 20-25%, apical anterior, apical lateral, and apical inferior LV wall hypokinesis. Apical septal LV wall akinetic. Mild mitral regurgitation. Moderate to severe tricuspid regurgitation and severe pulmonary hypertension. PHYSICAL EXAM: VITAL SIGNS: Reviewed. GENERAL: Well-developed in no acute distress. HEENT: Head is normocephalic. Pupils are equal, round. Sclerae anicteric. Mucous membranes of the mouth are moist. Neck supple. No JVD or thyromegaly LUNGS: Respirations even and unlabored. Lungs diminished to auscultation bilaterally. HEART: Regular rate and rhythm. S1 and S2 heard. EXTREMITIES: Normal range of motion. No clubbing or cyanosis. Peripheral pulses intact. Trace lower extremity edema ASSESSMENT: Syncope Nausea and vomiting Hyponatremia Hypomagnesemia Coronary artery disease with PCI SVG to right PDA, December 2020 and additional stenting in February 2021, details unknown History of CABG x 2001 Ischemic cardiomyopathy, status post AICD Hypertension Hyperlipidemia Pulmonary fibrosis Diabetes mellitus PLAN: Monitor sodium levels. Nephrology following. Replace magnesium. Monitor electrolytes Further recommendations pending patient course Nurse practitioner note has been reviewed by physician. Signing provider agrees with the documented findings, assessment, and plan of care. Objective - Vital Signs Vital signs: Vital Signs Temp 97.4 F L 04/07/21 04:00 Pulse 68 04/07/21 04:00 Resp 18 04/07/21 04:00 BP 148/66 04/07/21 04:00 Pulse Ox 98 04/07/21 08:15 Intake & Output 04/06/21 04/07/21 04/07/21 18:59 06:59 18:59 Intake Total 600 180 Balance 600 180 Weight 80.2 kg Intake: Oral 600 180 Other: Voiding Method Toilet Toilet # Voids 1 1 - Labs CBC & Chem 7: 04/07/21 06:38 04/07/21 06:38 Labs: Abnormal Lab Results - Last 24 Hours (Table) 04/06/21 04/06/21 04/06/21 Range/Units 04:45 11:24 17:01 RBC (3.80-5.40) m/uL MCV (80.0-100.0) fL Lymphocytes # (1.0-4.8) k/uL Sodium 118 L* 119 L* (137-145) mmol/L Chloride (98-107) mmol/L Carbon Dioxide (22-30) mmol/L Glucose (74-99) mg/dL POC Glucose (mg/dL) (75-99) mg/dL Hemoglobin A1c 8.3 H (4.0-6.0) % Osmolality 258 L (280-301) mosm/kg Magnesium (1.6-2.3) mg/dL TSH 5.070 H (0.465-4.680) mIU/L 04/06/21 04/06/21 04/07/21 Range/Units 20:57 21:13 02:34 RBC (3.80-5.40) m/uL MCV (80.0-100.0) fL Lymphocytes # (1.0-4.8) k/uL Sodium 120 L (137-145) mmol/L Chloride (98-107) mmol/L Carbon Dioxide (22-30) mmol/L Glucose (74-99) mg/dL POC Glucose (mg/dL) 63 L 244 H (75-99) mg/dL Hemoglobin A1c (4.0-6.0) % Osmolality (280-301) mosm/kg Magnesium (1.6-2.3) mg/dL TSH (0.465-4.680) mIU/L 04/07/21 04/07/21 04/07/21 Range/Units 06:02 06:38 06:38 RBC 3.68 L (3.80-5.40) m/uL MCV 103.5 H (80.0-100.0) fL Lymphocytes # 0.6 L (1.0-4.8) k/uL Sodium (137-145) mmol/L Chloride (98-107) mmol/L Carbon Dioxide (22-30) mmol/L Glucose (74-99) mg/dL POC Glucose (mg/dL) 197 H (75-99) mg/dL Hemoglobin A1c (4.0-6.0) % Osmolality (280-301) mosm/kg Magnesium 1.5 L (1.6-2.3) mg/dL TSH (0.465-4.680) mIU/L 04/07/21 04/07/21 Range/Units 06:38 11:31 RBC (3.80-5.40) m/uL MCV (80.0-100.0) fL Lymphocytes # (1.0-4.8) k/uL Sodium 123 L (137-145) mmol/L Chloride 84 L (98-107) mmol/L Carbon Dioxide 32 H (22-30) mmol/L Glucose 182 H (74-99) mg/dL POC Glucose (mg/dL) 168 H (75-99) mg/dL Hemoglobin A1c (4.0-6.0) % Osmolality (280-301) mosm/kg Magnesium (1.6-2.3) mg/dL TSH (0.465-4.680) mIU/L
[2021-04-07] MEDS: MAGNESIUM SULFATE-D5W PMX 1 GM in DEXTROSE/WATER 1 100ML.BAG IVPB SCH ×2 (12:05→16:48)
[2021-04-07 16:45] LABS: Glucose,Whole Blood 198 mg/dL (75-99)
[2021-04-07 20:06] LABS: Glucose,Whole Blood 296 mg/dL (75-99)
[2021-04-07] MEDS: CHOLECALCIFEROL 25 MCG (1000 IU) TABLET PO SCH (20:32)
[2021-04-07] MEDS: ATORVASTATIN 20 MG TAB PO SCH (20:32)
[2021-04-07] MEDS: LORazepam 1 MG TAB PO SCH (20:32)
[2021-04-07] MEDS: MULTIVITAMINS, THERA 1 EACH TAB PO SCH (20:32)
[2021-04-08] MEDS: carvediloL 3.125 MG TAB PO SCH ×2 (06:00→18:22)
[2021-04-08] MEDS: LEVOTHYROXINE 100 MCG TAB PO SCH (06:00)
[2021-04-08] MEDS: PANTOPRAZOLE 40 MG TABLET PO SCH (06:00)
[2021-04-08 06:10] LABS: Glucose,Whole Blood 88 mg/dL (75-99)
[2021-04-08] MEDS: INSULIN PUMP MEAL BOLUS 1 UNIT MISC MISCELLANE SCH ×4 (06:23→22:46)
[2021-04-08 08:12] LABS: African American GFR (CKD) >90 (>60 ml/min/1.73 sqM); Anion Gap 9 mmol/L; Blood Urea Nitrogen 14 mg/dL (7-17); Calcium 8.2 mg/dL (8.4-10.2); Carbon Dioxide 28 mmol/L (22-30); Chloride 85 mmol/L (98-107); Glucose 122 mg/dL (74-99); Non-African American GFR(CKD) >90 (>60 ml/min/1.73 sqM); Sodium 122 mmol/L (137-145)
[2021-04-08 08:20] LABS: Magnesium 1.8 mg/dL (1.6-2.3); Potassium 4.4 mmol/L (3.5-5.1)
[2021-04-08] MEDS: MONTELUKAST 10 MG TAB PO SCH (09:40)
[2021-04-08] MEDS: CLOPIDOGREL 75 MG TAB PO SCH (09:40)
[2021-04-08] MEDS: SACUBITRIL/VALSARTAN 24 MG-26 MG TABLET PO SCH ×2 (09:40→22:25)
[2021-04-08] MEDS: ASPIRIN 81 MG PO SCH (09:40)
[2021-04-08] MEDS: FOLIC ACID 1 MG TAB PO SCH (09:40)
[2021-04-08] MEDS: buPROPion XL 150 MG TAB.ER.24H PO SCH (09:40)
[2021-04-08] MEDS: ENOXAPARIN 40 MG/0.4 ML SYRINGE SQ SCH (09:40)
[2021-04-08] MEDS ORDERED: TOLVAPTAN 15 MG 1/2 TABLET PO ONE (11:05)
--- NOTE | 2021-04-08 11:06 | P.PN ---
Subjective Patient is seen in follow-up for hyponatremia. Sodium level 122 this morning. Oral intake fair. Nonoliguric. Oral intake fair. No vomiting or diarrhea. Vital signs are stable. General: The patient appeared well nourished and normally developed. HEENT: Head exam is unremarkable. Neck is without jugular venous distension. LUNGS: Breath sounds decreased. HEART: Rate and Rhythm are regular. ABDOMEN: Soft, no distention. EXTREMITITES: Trace edema. Objective - Vital Signs Vital signs: Vital Signs Temp 98.2 F 04/07/21 20:00 Pulse 70 04/08/21 06:22 Resp 18 04/08/21 06:22 BP 134/72 04/08/21 06:22 Pulse Ox 92 L 04/08/21 06:22 Intake & Output 04/07/21 04/08/21 04/08/21 18:59 06:59 18:59 Intake Total 540 970 Balance 540 970 Weight 81.1 kg Intake: Oral 540 970 Other: Voiding Method Toilet Toilet # Voids 1 1 - Labs CBC & Chem 7: 04/07/21 06:38 04/08/21 07:15 Labs: Abnormal Lab Results - Last 24 Hours (Table) 04/06/21 04/07/21 04/07/21 Range/Units 13:30 11:31 16:44 Sodium (137-145) mmol/L Chloride (98-107) mmol/L Glucose (74-99) mg/dL POC Glucose (mg/dL) 168 H 198 H (75-99) mg/dL Calcium (8.4-10.2) mg/dL Ur Random Sodium 38 L (40-220) mmol/L 04/07/21 04/08/21 Range/Units 20:05 07:15 Sodium 122 L (137-145) mmol/L Chloride 85 L (98-107) mmol/L Glucose 122 H (74-99) mg/dL POC Glucose (mg/dL) 296 H (75-99) mg/dL Calcium 8.2 L (8.4-10.2) mg/dL Ur Random Sodium (40-220) mmol/L Assessment and Plan Plan: Assessment: 1. Hyponatremia. Slightly hypervolemic now. Sodium level 122 this morning. TSH slightly high. Urine osmolality 286. Urine sodium 38. 2. Chronic systolic CHF with ejection fraction of 20-25% with moderate to severe tricuspid regurgitation and severe pulmonary hypertension. 3. Hypomagnesemia from poor intake and diuretics. Replace. Better. 4. Diabetes mellitus. 5. Syncopal episode. Cardiology following. Blood pressure stable. Standing blood pressure not low. Plan: 1200 mL fluid restriction. Encouraged oral intake. Status post IV Lasix last couple of days. Samsca 15 mg once now. Repeat sodium level this evening.
[2021-04-08 11:26] LABS: Glucose,Whole Blood 173 mg/dL (75-99)
--- NOTE | 2021-04-08 14:12 | P.PN ---
Subjective Progress Note Date: 04/08/21 HISTORY OF PRESENT ILLNESS: This is a 65 year old female with a past medical history significant for coronary artery disease with previous CABG x 4 in 2001 and recent PCI, ischemic cardiomyopathy, AICD implantation, hypertension, hyperlipidemia, and diabetes. Patient follows with Dr. Ambriz. We have been asked to see the patient in consultation for syncope. Patient examined at the bedside. It is noted the patient underwent cardiac cath with Dr. Thompson in December 2020 with PCI of the SVG to PDA. Patient states last month she underwent another cardiac cath with Dr. Ambriz and had another stent placed. She states she has been in cardiac rehab since that time. She states she was at cardiac rehab yesterday and was experiencing a lot of shoulder pain which she states is chronic. She got home and became nauseous and was throwing up and then passed out. She denies biting her tongue. She denies loss of bowel or bladder. Patient currently denies chest pain or pressure. She denies shortness of breath. She denies dizziness or lightheadedness. EKG reveals sinus mechanism. Right bundle branch block. Left anterior fascicular block. Bifascicular block. Appears similar to previous EKG. Chest xray there is evidence for mild congestive heart failure with increased congestion compared to old exam. There is probably underlying pulmonary fibrosis. Laboratory data: WBC 6.5. Hemoglobin 13.2. Platelet count 141. Sodium 117 on admission. Repeat 121. Potassium 3.7. BUN 17. Creatinine 0.78. Magnesium 1.5. ProBNP 5900. Troponin 0.022. Current home cardiac medications include Entresto 49-51mg BID, Coreg 3.125 mg twice a day, Lasix 20 mg daily, Plavix 75 mg daily, Lipitor 20 mg daily, and aspirin 81 mg daily Most recent echocardiogram obtained in December 2020 revealed ejection fraction 30- 35%. Addendum entered and electronically signed by Kaleigh Delcid NP-C 04/06/21 14:47: Pacemaker interrogation reviewed and is unremarkable Records from [facility] reviewed. Patient underwent cardiac catheterization in February 2021 at [facility] revealin. 80% stenosis in the proximal portion of the SVG to diagonal with drug eluting stent placement 2. Residual disease in the ostial left circumflex and OM1 (intervention to be scheduled at a later date per Dr. Ambriz). 3. Patent ANTUNEZ to LAD. 04/07/2021 Patient examined this morning at the bedside. Patient denies chest pain or pressure. Denies shortness of breath. Sodium improved to 123. Magnesium remains low at 1.5. Orthostatic blood pressures unremarkable. Echocardiogram completed revealed ejection fraction 20-25%, apical anterior, apical lateral, and apical inferior LV wall hypokinesis. Apical septal LV wall akinetic. Mild mitral regurgitation. Moderate to severe tricuspid regurgitation and severe pulmonary hypertension. 04/08/2021 Patient examined this morning at the bedside. Patient denies chest pain or pressure. She denies shortness of breath. Patient's sodium 122 this morning. Nephrology is following. Patient's vital signs are stable. PHYSICAL EXAM: VITAL SIGNS: Reviewed. GENERAL: Well-developed in no acute distress. HEENT: Head is normocephalic. Pupils are equal, round. Sclerae anicteric. Mucous membranes of the mouth are moist. Neck supple. No JVD or thyromegaly LUNGS: Respirations even and unlabored. Lungs diminished to auscultation bilaterally. HEART: Regular rate and rhythm. S1 and S2 heard. EXTREMITIES: Normal range of motion. No clubbing or cyanosis. Peripheral p ulses intact. Trace lower extremity edema ASSESSMENT: Syncope Nausea and vomiting Hyponatremia Hypomagnesemia Coronary artery disease with PCI SVG to right PDA, December 2020 and additional stenting in February 2021, details unknown History of CABG x 2001 Ischemic cardiomyopathy, status post AICD Hypertension Hyperlipidemia Pulmonary fibrosis Diabetes mellitus PLAN: Patient is currently stable from a cardiac standpoint No further inpatient recommendations from a cardiac perspective Patient is to follow up on an outpatient basis with her primary licensed architect We will sign off. Please reconsult if needed. Nurse practitioner note has been reviewed by physician. Signing provider agrees with the documented findings, assessment, and plan of care. Objective - Vital Signs Vital signs: Vital Signs Temp 98.2 F 04/07/21 20:00 Pulse 70 04/08/21 06:22 Resp 18 04/08/21 06:22 BP 134/72 04/08/21 06:22 Pulse Ox 92 L 04/08/21 06:22 Intake & Output 04/07/21 04/08/21 04/08/21 18:59 06:59 18:59 Intake Total 540 970 240 Balance 540 970 240 Weight 81.1 kg Intake: Oral 540 970 240 Other: Voiding Method Toilet Toilet # Voids 1 1 - Labs CBC & Chem 7: 04/07/21 06:38 04/08/21 07:15 Labs: Abnormal Lab Results - Last 24 Hours (Table) 04/07/21 04/07/21 04/08/21 Range/Units 16:44 20:05 07:15 Sodium 122 L (137-145) mmol/L Chloride 85 L (98-107) mmol/L Glucose 122 H (74-99) mg/dL POC Glucose (mg/dL) 198 H 296 H (75-99) mg/dL Calcium 8.2 L (8.4-10.2) mg/dL 04/08/21 Range/Units 11:24 Sodium (137-145) mmol/L Chloride (98-107) mmol/L Glucose (74-99) mg/dL POC Glucose (mg/dL) 173 H (75-99) mg/dL Calcium (8.4-10.2) mg/dL
[2021-04-08 16:53] LABS: Glucose,Whole Blood 245 mg/dL (75-99)
--- NOTE | 2021-04-08 18:16 | P.PN ---
Subjective Progress Note Date: 04/08/21 Principal diagnosis: Syncope 65-year-old female with a known history of coronary disease status post CABG, recent heart catheterization and stent placement on 03/07/2021, hypertension, hyperlipidemia, history of NC, hypothyroidism and previous history of an anxiety and problem smoker presents to ER with complaints of nausea and vomiting and then passed out. Denied any shaking movements of bladder or bowel incontinence. No complaints of chest pain or shortness of breath. Denies any dizziness or lightheadedness. Chest x-ray showed evidence for mild congestive heart failure with increasing congestion compared to last exam. There is probably underlying pulmonary fibrosis. EKG showed normal sinus rhythm with right bundle branch block and left anterior fascicular block. Laboratory data showed WBC 6.4 hemoglobin 13.2 MCV 103.1 and platelets 141, lymphocytes 0.4 Sodium level was 117, potassium 4.1 chloride 80 BUN 16 and creatinine 0.83 and blood sugar is 264 AST 42 ALT 24 and alk phos 122 Troponin 0 0.022 proBNP 5900 Coronavirus PCR not detected 2D echocardiogram in December 2020 showed ejection fraction 30 to 35%. Objective - Vital Signs Vital signs: Vital Signs Temp 98.2 F 04/07/21 20:00 Pulse 70 04/08/21 06:22 Resp 18 04/08/21 06:22 BP 134/72 04/08/21 06:22 Pulse Ox 92 L 04/08/21 06:22 Intake & Output 04/07/21 04/08/21 04/08/21 18:59 06:59 18:59 Intake Total 540 970 240 Balance 540 970 240 Weight 81.1 kg Intake: Oral 540 970 240 Other: Voiding Method Toilet Toilet # Voids 1 1 - Exam PHYSICAL EXAMINATION: GENERAL: The patient is alert and oriented x3, not in any acute distress. Well developed, well nourished. HEENT: Pupils are round and equally reacting to light. EOMI. No scleral icterus. No conjunctival pallor. Normocephalic, atraumatic. No pharyngeal erythema. No thyromegaly. CARDIOVASCULAR: S1 and S2 present. No murmurs, rubs, or gallops. PULMONARY: Chest is clear to auscultation, no wheezing or crackles. ABDOMEN: Soft, nontender, nondistended, normoactive bowel sounds. No palpable organomegaly. MUSCULOSKELETAL: No joint swelling or deformity. EXTREMITIES: No cyanosis, clubbing, or pedal edema. NEUROLOGICAL: Gross neurological examination did not reveal any focal deficits. SKIN: No rashes. - Labs CBC & Chem 7: 04/07/21 06:38 04/08/21 17:33 Labs: Abnormal Lab Results - Last 24 Hours (Table) 04/07/21 04/07/21 04/08/21 Range/Units 16:44 20:05 07:15 Sodium 122 L (137-145) mmol/L Chloride 85 L (98-107) mmol/L Glucose 122 H (74-99) mg/dL POC Glucose (mg/dL) 198 H 296 H (75-99) mg/dL Calcium 8.2 L (8.4-10.2) mg/dL 04/08/21 Range/Units 11:24 Sodium (137-145) mmol/L Chloride (98-107) mmol/L Glucose (74-99) mg/dL POC Glucose (mg/dL) 173 H (75-99) mg/dL Calcium (8.4-10.2) mg/dL Assessment and Plan Assessment: Patient is lying in the bed comfortably, no acute distress, awake alert and oriented.. HEENT: Normocephalic. Neck is supple. Pupils reactive. Nostrils clear. Oral cavity is moist. Neck reveals no JVD, carotid bruits, or thyromegaly. CHEST EXAMINATION: Trachea is central. Symmetrical expansion. Bibasilar diminished sounds. No wheezing or rhonchi.. Minimal right basilar crackles. CARDIAC: Normal S1, S2 with no gallops. No murmurs ABDOMEN: Soft. Bowel sounds normal. No organomegaly. No abdominal bruits. Extremities: trace edema. No clubbing or cyanosis Neurologically awake, alert, oriented x3 with well-coordinated movements. No focal deficits noted Skin: No rash or skin lesions. Psychiatric: Cooperative. Nonsuicidal Musculoskeletal: No joint swelling or deformity. Normal range of motion.
[2021-04-08 20:21] LABS: Glucose,Whole Blood 265 mg/dL (75-99)
[2021-04-08] MEDS: CHOLECALCIFEROL 25 MCG (1000 IU) TABLET PO SCH (22:25)
[2021-04-08] MEDS: MULTIVITAMINS, THERA 1 EACH TAB PO SCH (22:26)
[2021-04-08] MEDS: LORazepam 1 MG TAB PO SCH (22:27)
[2021-04-08] MEDS: ATORVASTATIN 20 MG TAB PO SCH (22:27)
[2021-04-09] MEDS: LEVOTHYROXINE 100 MCG TAB PO SCH (06:19)
[2021-04-09] MEDS: carvediloL 3.125 MG TAB PO SCH ×2 (06:19→17:51)
[2021-04-09] MEDS: PANTOPRAZOLE 40 MG TABLET PO SCH (06:19)
[2021-04-09 06:26] LABS: Glucose,Whole Blood 168 mg/dL (75-99)
[2021-04-09] MEDS: INSULIN PUMP MEAL BOLUS 1 UNIT MISC MISCELLANE SCH ×4 (09:47→21:18)
[2021-04-09] MEDS: ENOXAPARIN 40 MG/0.4 ML SYRINGE SQ SCH (09:47)
[2021-04-09] MEDS: MONTELUKAST 10 MG TAB PO SCH (09:47)
[2021-04-09] MEDS: buPROPion XL 150 MG TAB.ER.24H PO SCH (09:47)
[2021-04-09] MEDS: SACUBITRIL/VALSARTAN 24 MG-26 MG TABLET PO SCH ×2 (09:47→21:14)
[2021-04-09] MEDS: ASPIRIN 81 MG PO SCH (09:47)
[2021-04-09] MEDS: CLOPIDOGREL 75 MG TAB PO SCH (09:47)
[2021-04-09] MEDS: FOLIC ACID 1 MG TAB PO SCH (09:47)
[2021-04-09 11:45] LABS: Glucose,Whole Blood 258 mg/dL (75-99)
[2021-04-09 11:49] LABS: African American GFR (CKD) >90 (>60 ml/min/1.73 sqM); Anion Gap 7 mmol/L; Blood Urea Nitrogen 12 mg/dL (7-17); Calcium 8.3 mg/dL (8.4-10.2); Carbon Dioxide 30 mmol/L (22-30); Chloride 88 mmol/L (98-107); Glucose 278 mg/dL (74-99); Magnesium 1.8 mg/dL (1.6-2.3); Non-African American GFR(CKD) >90 (>60 ml/min/1.73 sqM); Sodium 125 mmol/L (137-145)
[2021-04-09] MEDS ORDERED: TOLVAPTAN 15 MG 1/2 TABLET PO ONE (12:15)
--- NOTE | 2021-04-09 12:39 | PN ---
PROGRESS NOTE Patient is seen for followup for hyponatremia. Sodium has improved to 125 today from 117 on initial admission. Urine osmolality was at 286. Patient did receive a dose of tolvaptan yesterday. Patient wants to go home. She denies any significant complaints. On examination today, blood pressure is 118/63, heart rate 70 per minute. She is afebrile. EXAMINATION OF THE HEART: S1 and S2. EXAMINATION OF LUNGS: Decreased breath sounds at the bases. Abdomen is soft, non-tender. Examination of lower extremities shows no significant edema. [employer]ATOR exam is grossly intact. Labs show sodium 125, potassium 4.0, chloride 88, BUN 12, serum creatinine 0.5. ASSESSMENT: Hyponatremia, mildly hypervolemic, but also related to possible SIADH, currently improved with Samsca. Patient is encouraged to increase oral protein intake to increase urinary osmoles. She will be maintained on some degree of free water restriction. I will repeat another dose of tolvaptan today and she should resume her Lasix that patient was taking at home. Recheck another sodium level this evening. Hopefully patient can be discharged by tomorrow, perhaps later on today, depending on the repeat sodium. She needs to follow up closely with repeat labs to be done in 3-4 days post discharge and continue with oral Lasix post discharge along with free water restriction to about 1200 mL per day. MMODL / IJN: [id number] /
[2021-04-09 16:33] LABS: Glucose,Whole Blood 74 mg/dL (75-99)
--- NOTE | 2021-04-09 19:34 | P.PN ---
Subjective Progress Note Date: 04/09/21 Principal diagnosis: Syncope 65-year-old female with a known history of coronary disease status post CABG, recent heart catheterization and stent placement on 03/07/2021, hypertension, hyperlipidemia, history of ND, hypothyroidism and previous history of an anxiety and problem smoker presents to ER with complaints of nausea and vomiting and then passed out. Denied any shaking movements of bladder or bowel incontinence. No complaints of chest pain or shortness of breath. Denies any dizziness or lightheadedness. Chest x-ray showed evidence for mild congestive heart failure with increasing congestion compared to last exam. There is probably underlying pulmonary fibrosis. EKG showed normal sinus rhythm with right bundle branch block and left anterior fascicular block. Laboratory data showed WBC 6.4 hemoglobin 13.2 MCV 103.1 and platelets 141, lymphocytes 0.4 Sodium level was 117, potassium 4.1 chloride 80 BUN 16 and creatinine 0.83 and blood sugar is 264 AST 42 ALT 24 and alk phos 122 Troponin 0 0.022 proBNP 5900 Coronavirus PCR not detected 2D echocardiogram in December 2020 showed ejection fraction 30 to 35%. 04/09/2021 Patient seen and evaluated for follow-up on hyponatremia Vital signs are stable with temperature of 98.6, pulse 70, left pressure 118/63 Lab review shows improved sodium level from 117 upon admission up to 125 this mo rning Nephrology on board; patient mildly hypervolemic possibly related to SIADH; patient has been started on Samsca, plan is to repeat sodium level with possible discharge plan in next 24 hours Objective - Vital Signs Vital signs: Vital Signs Temp 97.8 F 04/09/21 08:00 Pulse 70 04/09/21 08:00 Resp 18 04/09/21 08:00 BP 118/63 04/09/21 08:00 Pulse Ox 95 04/09/21 08:00 Intake & Output 04/08/21 04/09/21 04/09/21 18:59 06:59 18:59 Intake Total 720 600 240 Balance 720 600 240 Weight 81.3 kg Intake: Oral 720 600 240 Other: Voiding Method Toilet Toilet Toilet # Voids 1 - Exam PHYSICAL EXAMINATION: GENERAL: The patient is alert and oriented x3, not in any acute distress. Well developed, well nourished. HEENT: Pupils are round and equally reacting to light. EOMI. No scleral icterus. No conjunctival pallor. Normocephalic, atraumatic. No pharyngeal erythema. No thyromegaly. CARDIOVASCULAR: S1 and S2 present. No murmurs, rubs, or gallops. PULMONARY: Chest is clear to auscultation, no wheezing or crackles. ABDOMEN: Soft, nontender, nondistended, normoactive bowel sounds. No palpable organomegaly. MUSCULOSKELETAL: No joint swelling or deformity. EXTREMITIES: No cyanosis, clubbing, or pedal edema. NEUROLOGICAL: Gross neurological examination did not reveal any focal deficits. SKIN: No rashes. - Labs CBC & Chem 7: 04/07/21 06:38 04/09/21 16:43 Labs: Abnormal Lab Results - Last 24 Hours (Table) 04/08/21 04/08/21 04/08/21 Range/Units 16:51 17:33 19:51 Sodium 123 L (137-145) mmol/L Chloride (98-107) mmol/L Glucose (74-99) mg/dL POC Glucose (mg/dL) 245 H 265 H (75-99) mg/dL Calcium (8.4-10.2) mg/dL 04/09/21 04/09/21 04/09/21 Range/Units 06:25 11:25 11:44 Sodium 125 L (137-145) mmol/L Chloride 88 L (98-107) mmol/L Glucose 278 H (74-99) mg/dL POC Glucose (mg/dL) 168 H 258 H (75-99) mg/dL Calcium 8.3 L (8.4-10.2) mg/dL Assessment and Plan Assessment: Patient is lying in the bed comfortably, no acute distress, awake alert and oriented.. HEENT: Normocephalic. Neck is supple. Pupils reactive. Nostrils clear. Oral cavity is moist. Neck reveals no JVD, carotid bruits, or thyromegaly. CHEST EXAMINATION: Trachea is central. Symmetrical expansion. Bibasilar diminished sounds. No wheezing or rhonchi.. Minimal right basilar crackles. CARDIAC: Normal S1, S2 with no gallops. No murmurs ABDOMEN: Soft. Bowel sounds normal. No organomegaly. No abdominal bruits. Extremities: trace edema. No clubbing or cyanosis Neurologically awake, alert, oriented x3 with well-coordinated movements. No focal deficits noted Skin: No rash or skin lesions. Psychiatric: Cooperative. Nonsuicidal Musculoskeletal: No joint swelling or deformity. Normal range of motion.
[2021-04-09 20:51] LABS: Glucose,Whole Blood 124 mg/dL (75-99)
[2021-04-09] MEDS: MULTIVITAMINS, THERA 1 EACH TAB PO SCH (21:14)
[2021-04-09] MEDS: LORazepam 1 MG TAB PO SCH (21:14)
[2021-04-09] MEDS: CHOLECALCIFEROL 25 MCG (1000 IU) TABLET PO SCH (21:15)
[2021-04-09] MEDS: ATORVASTATIN 20 MG TAB PO SCH (21:15)
[2021-04-10] MEDS: carvediloL 3.125 MG TAB PO SCH (06:19)
[2021-04-10] MEDS: PANTOPRAZOLE 40 MG TABLET PO SCH (06:19)
[2021-04-10 06:22] LABS: Glucose,Whole Blood 124 mg/dL (75-99)
[2021-04-10] MEDS: INSULIN PUMP MEAL BOLUS 1 UNIT MISC MISCELLANE SCH ×2 (06:28→14:04)
[2021-04-10 08:21] LABS: African American GFR (CKD) >90 (>60 ml/min/1.73 sqM); Anion Gap 8 mmol/L; Blood Urea Nitrogen 12 mg/dL (7-17); Calcium 8.9 mg/dL (8.4-10.2); Carbon Dioxide 29 mmol/L (22-30); Chloride 92 mmol/L (98-107); Glucose 91 mg/dL (74-99); Non-African American GFR(CKD) >90 (>60 ml/min/1.73 sqM); Potassium 3.9 mmol/L (3.5-5.1); Sodium 129 mmol/L (137-145)
[2021-04-10] MEDS: buPROPion XL 150 MG TAB.ER.24H PO SCH (09:13)
[2021-04-10] MEDS: SACUBITRIL/VALSARTAN 24 MG-26 MG TABLET PO SCH (09:13)
[2021-04-10] MEDS: ENOXAPARIN 40 MG/0.4 ML SYRINGE SQ SCH (09:13)
[2021-04-10] MEDS: CLOPIDOGREL 75 MG TAB PO SCH (09:13)
[2021-04-10] MEDS: MONTELUKAST 10 MG TAB PO SCH (09:13)
[2021-04-10] MEDS: ASPIRIN 81 MG PO SCH (09:13)
[2021-04-10] MEDS: FOLIC ACID 1 MG TAB PO SCH (09:13)
[2021-04-10] MEDS ORDERED: TOLVAPTAN 15 MG 1/2 TABLET PO ONE (09:48)
[2021-04-10 10:40] VITALS: BP 120/68; PULSE 84; RESP 18; TEMP 97.6
[2021-04-10] MEDS ORDERED: FUROSEMIDE 20 MG TAB PO SCH (11:15)
--- NOTE | 2021-04-10 11:26 | PN ---
PROGRESS NOTE Patient is seen for followup for hyponatremia. Patient has had chronic hyponatremia with multiple admissions previously, although her sodium has not been as low as on this admission, where it was down to 117. It is mostly euvolemic, perhaps a component of mild hypervolemia. Patient takes Lasix at home. She is currently maintained on fluid restriction. She has received a couple of doses of tolvaptan and received a dose yesterday. Sodium is up to 129. Overall, patient states she is feeling better. On examination today, blood pressure was 116/68, heart rate of 62 per minute. She is afebrile. EXAMINATION OF THE HEART: S1 and S2. EXAMINATION OF LUNGS: Bilateral breath sounds are heard. Abdomen is soft, non-tender. Examination of lower extremities shows no significant edema. 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 Labs show sodium 129, potassium 3.9, chloride 92, BUN 12, creatinine 0.57. ASSESSMENT: 1. Hyponatremia, mostly euvolemic, currently mildly hypervolemic. I will repeat another dose of tolvaptan. Patient should resume her home dose of Lasix. She is advised that she will likely need to take tolvaptan mg twice a week post discharge to avoid recurrent admissions, although review of previous labs does not show a sodium as low as 117, as it was on this admission. In the meantime, patient should continue with fluid restriction and increase oral protein intake. 2. Chronic systolic congestive heart failure with ejection fraction 20% to 25% with moderate to severe tricuspid regurgitation and severe pulmonary hypertension. 3. Hypomagnesemia from poor oral intake and diuretics, currently improved, status post replacement. 4. Type 2 diabetes. PLAN: Resume oral Lasix. Repeat tolvaptan today. Continue with fluid restriction post discharge. Check labs in about 2 to 3 days post discharge. MMODL / IJN: [id number] /
[2021-04-10 11:30] LABS: Glucose,Whole Blood 84 mg/dL (75-99)
== END 2021-04-10 15:09 | disposition home or self-care (01) | DRG 641 ==
LOC: EC 17:24 → 3SCARD 19:24
PROVIDERS: ADMIT Hospitalist; ATTEND Hospitalist
DX: E87.1 Hypo-osmolality and hyponatremia (principal); I45.2 Bifascicular block; I50.22 Chronic systolic (congestive) heart failure; E03.9 Hypothyroidism, unspecified; E11.65 Type 2 diabetes mellitus with hyperglycemia; E78.5 Hyperlipidemia, unspecified; E83.42 Hypomagnesemia; E86.1 Hypovolemia; Z20.822 Contact with and (suspected) exposure to COVID-19; F41.9 Anxiety disorder, unspecified; G89.29 Other chronic pain; I11.0 Hypertensive heart disease with heart failure; I25.10 Atherosclerotic heart disease of native coronary artery without angina pectoris; I25.2 Old myocardial infarction; I25.5 Ischemic cardiomyopathy; I27.22 Pulmonary hypertension due to left heart disease; J84.10 Pulmonary fibrosis, unspecified; I07.1 Rheumatic tricuspid insufficiency; Z79.02 Long term (current) use of antithrombotics/antiplatelets; Z82.49 Family history of ischemic heart disease and other diseases of the circulatory system; Z87.891 Personal history of nicotine dependence; Z90.710 Acquired absence of both cervix and uterus; Z95.1 Presence of aortocoronary bypass graft; Z95.5 Presence of coronary angioplasty implant and graft; Z79.899 Other long term (current) drug therapy; Z79.890 Hormone replacement therapy; Z79.82 Long term (current) use of aspirin; Z96.41 Presence of insulin pump (external) (internal); Z95.810 Presence of automatic (implantable) cardiac defibrillator; Z79.4 Long term (current) use of insulin; K21.9 Gastro-esophageal reflux disease without esophagitis
CPT/HCPCS: 36415; 71045; 71046; 80048; 80053; 83036; 83735; 83880; 83930; 83935; 84100; 84295; 84300; 84439; 84443; 84484; 85025; 85610; 85730; 87635; 93005; 93306; 94760; 96374; 96375; 99285

== ENCOUNTER → 2021-04-13 | Outpatient (CLI) | payer MEDICARE | END | disposition home or self-care (01) | LOC: LABWHC1 09:28 | PROVIDERS: ATTEND Internal Medicine Nephrology | DX: E87.1 Hypo-osmolality and hyponatremia (principal) | CPT/HCPCS: 36415; 84295 ==

== ENCOUNTER → 2021-04-18 | Outpatient (CLI) | payer MEDICARE ==
[2021-04-18 14:57] LABS: Appearance,Urine Cloudy (Clear); Bilirubin,Urine Negative (Negative); Blood,Urine Negative (Negative); Color,Urine Light Yellow; Glucose,Urine (UA) Negative (Negative); Ketones,Urine Negative (Negative); Leukocyte Esterase,Urine Large (Negative); Nitrite,Urine Negative (Negative); Protein,Urine Negative (Negative); RBC,Urine 3 /hpf (0-5); Specific Gravity,Urine 1.006 (1.001-1.035); Squamous Epithelial Cell,Urine <1 /hpf (0-4); Urobilinogen,Urine <2.0 mg/dL (<2.0); WBC,Urine 119 /hpf (0-5)
[2021-04-18 15:18] LABS: Creatinine,Urine Random 11.2 mg/dL; Protein/Creatinine Ratio,Urine 1.875
[2021-04-18 19:20] LABS: Basophils # (A) 0.02 X 10*3/uL (0.00-0.10); Basophils % (A) 0.4 %; Eosinophils # (A) 0.04 X 10*3/uL (0.04-0.35); Eosinophils % (A) 0.9 %; HCT 37.8 % (37.2-46.3); HGB 12.4 g/dL (12.0-15.0); Lymphocytes # (A) 0.59 X 10*3/uL (0.90-5.00); Lymphocytes % (A) 12.7 %; MCHC 32.8 g/dL (32.0-37.0); MCV 103.6 fL (80.0-97.0); Mean Platelet Volume 9.5 fL (9.5-12.2); Monocytes # (A) 0.52 X 10*3/uL (0.20-1.00); Monocytes % (A) 11.2 %; Neutrophils # (A) 3.45 X 10*3/uL (1.80-7.70); Neutrophils % (A) 74.4 %; Platelet Count 203 X 10*3/uL (140-440); RBC 3.65 X 10*6/uL (4.10-5.20); RDW 13.2 % (11.5-14.5); WBC 4.64 X 10*3/uL (4.50-10.00)
[2021-04-19 00:43] LABS: % Iron Saturation 20.16 (12.00-45.00); Albumin 3.9 g/dL (3.8-4.9); Anion Gap 13.8 mmol/L (4.00-12.00); BUN/Creat Ratio 20.49 Ratio (12.00-20.00); Calcium 8.8 mg/dL (8.7-10.3); Carbon Dioxide 24.8 mmol/L (21.6-31.8); Magnesium 1.8 mg/dL (1.5-2.4); Non-African American GFR(CKD) 80.2 (60.0-200.0); Phosphorus 3.9 mg/dL (2.4-5.1); Potassium 4.4 mmol/L (3.5-5.5); Uric Acid 3.6 mg/dL (2.9-7.7)
== END | disposition home or self-care (01) ==
LOC: LABWHC1 13:51
PROVIDERS: ATTEND Internal Medicine Nephrology
DX: E87.1 Hypo-osmolality and hyponatremia (principal); E55.9 Vitamin D deficiency, unspecified; N25.81 Secondary hyperparathyroidism of renal origin; M10.9 Gout, unspecified; N39.0 Urinary tract infection, site not specified; D64.9 Anemia, unspecified; R80.9 Proteinuria, unspecified
CPT/HCPCS: 36415; 80048; 81001; 82040; 82306; 82570; 82728; 83540; 83550; 83735; 83970; 84100; 84156; 84550; 85025; 87086

== ENCOUNTER → 2021-04-25 | Outpatient (CLI) | payer MEDICARE ==
[2021-04-26 01:06] LABS: African American GFR (CKD) 90.3 (60.0-200.0); Anion Gap 11.5 mmol/L (4.00-12.00); BUN/Creat Ratio 24.25 Ratio (12.00-20.00); Blood Urea Nitrogen 19.4 mg/dL (9.0-27.0); Calcium 8.7 mg/dL (8.7-10.3); Carbon Dioxide 23.5 mmol/L (21.6-31.8); Non-African American GFR(CKD) 77.9 (60.0-200.0); Potassium 4.2 mmol/L (3.5-5.5)
== END | disposition home or self-care (01) ==
LOC: LABWHC1 15:24
PROVIDERS: ATTEND Nurse Practitioner Family
DX: E87.1 Hypo-osmolality and hyponatremia (principal)
CPT/HCPCS: 36415; 80048

== ENCOUNTER → 2021-04-29 | Outpatient (CLI) | payer MEDICARE ==
[2021-04-29 22:50] LABS: African American GFR (CKD) 90.3 (60.0-200.0); Anion Gap 13.7 mmol/L (4.00-12.00); BUN/Creat Ratio 21.5 Ratio (12.00-20.00); Blood Urea Nitrogen 17.2 mg/dL (9.0-27.0); Calcium 8.9 mg/dL (8.7-10.3); Carbon Dioxide 25.3 mmol/L (21.6-31.8); Non-African American GFR(CKD) 77.9 (60.0-200.0); Potassium 4.1 mmol/L (3.5-5.5)
== END | disposition home or self-care (01) ==
LOC: LABWHC1 11:02
PROVIDERS: ATTEND Nurse Practitioner Family
DX: E87.1 Hypo-osmolality and hyponatremia (principal)
CPT/HCPCS: 36415; 80048

== ENCOUNTER → 2021-05-03 | Outpatient (CLI) | payer MEDICARE ==
[2021-05-03 13:53] LABS: Appearance,Urine Cloudy (Clear); Bilirubin,Urine Negative (Negative); Blood,Urine Negative (Negative); Color,Urine Yellow; Glucose,Urine (UA) Negative (Negative); Ketones,Urine Negative (Negative); Leukocyte Esterase,Urine Trace (Negative); Mucus,Urine Rare /hpf; Nitrite,Urine Negative (Negative); Protein,Urine Trace (Negative); RBC,Urine 1 /hpf (0-5); Specific Gravity,Urine 1.013 (1.001-1.035); Urobilinogen,Urine <2.0 mg/dL (<2.0); WBC,Urine 5 /hpf (0-5)
[2021-05-03 20:51] LABS: African American GFR (CKD) 90.3 (60.0-200.0); BUN/Creat Ratio 24.13 Ratio (12.00-20.00); Blood Urea Nitrogen 19.3 mg/dL (9.0-27.0); Calcium 8.9 mg/dL (8.7-10.3); Non-African American GFR(CKD) 77.9 (60.0-200.0); Potassium 4.1 mmol/L (3.5-5.5)
== END | disposition home or self-care (01) ==
LOC: LABWHC1 11:38
PROVIDERS: ATTEND Nurse Practitioner Family
DX: R30.0 Dysuria (principal); E87.1 Hypo-osmolality and hyponatremia
CPT/HCPCS: 36415; 80048; 81001; 87086

== ENCOUNTER → 2021-05-09 | Outpatient (CLI) | payer MEDICARE ==
[2021-05-09 22:05] LABS: African American GFR (CKD) 90.3 (60.0-200.0); Anion Gap 12.2 mmol/L (4.00-12.00); Blood Urea Nitrogen 19.2 mg/dL (9.0-27.0); Calcium 8.7 mg/dL (8.7-10.3); Carbon Dioxide 24.8 mmol/L (21.6-31.8); Non-African American GFR(CKD) 77.9 (60.0-200.0)
== END | disposition home or self-care (01) ==
LOC: LABWHC1 12:26
PROVIDERS: ATTEND Nurse Practitioner Family
DX: E87.1 Hypo-osmolality and hyponatremia (principal)
CPT/HCPCS: 36415; 80048

== ENCOUNTER → 2021-05-16 | Outpatient (CLI) | payer MEDICARE ==
[2021-05-17 00:22] LABS: African American GFR (CKD) 90.3 (60.0-200.0); Anion Gap 12.7 mmol/L (4.00-12.00); BUN/Creat Ratio 23.38 Ratio (12.00-20.00); Blood Urea Nitrogen 18.7 mg/dL (9.0-27.0); Calcium 9.3 mg/dL (8.7-10.3); Carbon Dioxide 27.3 mmol/L (21.6-31.8); Non-African American GFR(CKD) 77.9 (60.0-200.0); Potassium 4.1 mmol/L (3.5-5.5)
== END | disposition home or self-care (01) ==
LOC: LABWHC1 14:56
PROVIDERS: ATTEND Nurse Practitioner Family
DX: E87.1 Hypo-osmolality and hyponatremia (principal)
CPT/HCPCS: 36415; 80048

== ENCOUNTER → 2021-05-23 | Outpatient (CLI) | payer MEDICARE ==
[2021-05-23 14:54] LABS: Anion Gap 12.7 mmol/L (10.00-18.00); BUN/Creat Ratio 29.93 Ratio (12.00-20.00); Blood Urea Nitrogen 29.9 mg/dL (9.0-27.0); Calcium 8.9 mg/dL (8.7-10.3); Carbon Dioxide 25.4 mmol/L (20.0-27.5); Non-African American GFR(CKD) 59.6 (60.0-200.0); Potassium 4.2 mmol/L (3.5-5.5)
== END | disposition home or self-care (01) ==
LOC: LABWHC1 09:24
PROVIDERS: ATTEND Nurse Practitioner Family
DX: E87.1 Hypo-osmolality and hyponatremia (principal)
CPT/HCPCS: 36415; 80048

== ENCOUNTER → 2021-05-30 | Outpatient (CLI) | payer MEDICARE ==
[2021-05-30 21:35] LABS: African American GFR (CKD) 68.9 (60.0-200.0); Anion Gap 11.6 mmol/L (10.00-18.00); BUN/Creat Ratio 23.6 Ratio (12.00-20.00); Blood Urea Nitrogen 23.6 mg/dL (9.0-27.0); Carbon Dioxide 26.9 mmol/L (20.0-27.5); Non-African American GFR(CKD) 59.5 (60.0-200.0); Potassium 4.2 mmol/L (3.5-5.5)
== END | disposition home or self-care (01) ==
LOC: LABWHC1 11:11
PROVIDERS: ATTEND Nurse Practitioner Family
DX: E87.1 Hypo-osmolality and hyponatremia (principal)
CPT/HCPCS: 36415; 80048

== ENCOUNTER → 2021-06-06 | Outpatient (CLI) | payer MEDICARE ==
[2021-06-07 06:06] LABS: African American GFR (CKD) 92.1 (60.0-200.0); Anion Gap 16.4 mmol/L (10.00-18.00); BUN/Creat Ratio 24.9 Ratio (12.00-20.00); Blood Urea Nitrogen 19.6 mg/dL (9.0-27.0); Calcium 9.2 mg/dL (8.7-10.3); Carbon Dioxide 23.3 mmol/L (20.0-27.5); Non-African American GFR(CKD) 79.5 (60.0-200.0); Potassium 3.8 mmol/L (3.5-5.5)
== END | disposition home or self-care (01) ==
LOC: LABWHC1 12:12
PROVIDERS: ATTEND Nurse Practitioner Family
DX: E87.1 Hypo-osmolality and hyponatremia (principal)
CPT/HCPCS: 36415; 80048

== ENCOUNTER → 2021-09-05 | Outpatient (CLI) | payer MEDICARE ==
[2021-09-05 19:24] LABS: African American GFR (CKD) 61.4 (60.0-200.0); Anion Gap 13.2 mmol/L (10.00-18.00); BUN/Creat Ratio 25.45 Ratio (12.00-20.00); Calcium 9.3 mg/dL (8.7-10.3); Potassium 4.2 mmol/L (3.5-5.5)
== END | disposition home or self-care (01) ==
LOC: LABWHC1 12:03
PROVIDERS: ATTEND Internal Medicine Nephrology
DX: E87.1 Hypo-osmolality and hyponatremia (principal)
CPT/HCPCS: 36415; 80048

== ENCOUNTER → 2021-09-13 | Outpatient (CLI) | payer MEDICARE ==
[2021-09-13 23:01] LABS: African American GFR (CKD) 68.5 (60.0-200.0); Anion Gap 11.4 mmol/L (10.00-18.00); BUN/Creat Ratio 23.9 Ratio (12.00-20.00); Blood Urea Nitrogen 23.9 mg/dL (9.0-27.0); Calcium 9.2 mg/dL (8.7-10.3); Carbon Dioxide 26.6 mmol/L (20.0-27.5); Non-African American GFR(CKD) 59.1 (60.0-200.0); Potassium 3.6 mmol/L (3.5-5.5)
== END | disposition home or self-care (01) ==
LOC: LABWHC1 15:27
PROVIDERS: ATTEND Internal Medicine Pulmonary Disease
DX: I42.9 Cardiomyopathy, unspecified (principal); I25.10 Atherosclerotic heart disease of native coronary artery without angina pectoris; I50.9 Heart failure, unspecified; I27.20 Pulmonary hypertension, unspecified; R06.83 Snoring
CPT/HCPCS: 36415; 80048

== ENCOUNTER → 2021-09-23 | Outpatient (CLI) | payer MEDICARE ==
--- NOTE | 2021-09-24 17:31 | US ---
EXAMINATION TYPE: US carotid duplex BILAT DATE OF EXAM: 09/23/2021 COMPARISON: NONE CLINICAL HISTORY: 66-year-old female R55 Syncope and collapse. No h/o stroke TECHNIQUE: Carotid duplex ultrasound examination. Indirect Doppler criteria was utilized. 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 Criteria for Assigning % of Stenosis / Diameter reduction (Estimation based on the indirect measurements of the internal carotid artery velocities (ICA PSV). 1. Normal (no stenosis)=ICA PSV < 125 cm/s: ratio < 2.0: ICA EDV<40 cm/s. 2. Less than 50% stenosis=ICA PSV < 125 cm/s: ratio < 2.0: ICA EDV<40 cm/s. 3. 50 to 69% stenosis=ICA PSV of 125 to 230 cm/s: ration 2.0 ? 4.0: ICA EDV 40-100 cm/s. 4. Greater than 70% stenosis to near occlusion= ICA PSV > 230 cm/s: ratio > 4.0: ICA EDV > 100 cm/s. 5. Near occlusion= ICA PSV velocities may be low or undetectable: variable ratio and ICA EDV. 6. Total occlusion=unable to detect flow.
== END | disposition home or self-care (01) ==
LOC: RADUSWWP 16:48
PROVIDERS: ATTEND Family Medicine
DX: R55 Syncope and collapse (principal)
CPT/HCPCS: 93880

== ENCOUNTER → 2021-10-05 | Outpatient (CLI) | payer MEDICARE ==
[2021-10-05 18:53] LABS: INR 1.03 (0.90-1.11); Prothrombin Time 11.3 sec (9.9-11.9)
[2021-10-05 19:02] LABS: Basophils # (A) 0.02 X 10*3/uL (0.00-0.10); Basophils % (A) 0.3 %; Eosinophils # (A) 0.04 X 10*3/uL (0.04-0.35); Eosinophils % (A) 0.6 %; HCT 39.9 % (37.2-46.3); HGB 13.1 g/dL (12.0-15.0); Immature Grans, Automated 0.6 %; Lymphocytes # (A) 0.76 X 10*3/uL (0.90-5.00); Lymphocytes % (A) 11.7 %; MCH 34.3 pg (27.0-32.0); MCHC 32.8 g/dL (32.0-37.0); MCV 104.5 fL (80.0-97.0); Mean Platelet Volume 9.5 fL (9.5-12.2); Monocytes # (A) 0.69 X 10*3/uL (0.20-1.00); Monocytes % (A) 10.6 %; NRBC Per 100 WBC 0 /100 WBCS (0.0-0.0); Neutrophils # (A) 4.94 X 10*3/uL (1.80-7.70); Neutrophils % (A) 76.2 %; Platelet Count 226 X 10*3/uL (140-440); RBC 3.82 X 10*6/uL (4.10-5.20); RDW 13.1 % (11.5-14.5); WBC 6.49 X 10*3/uL (4.50-10.00)
[2021-10-05 19:23] LABS: % Iron Saturation 22.67 (12.00-45.00); African American GFR (CKD) 71.8 (60.0-200.0); Albumin 4.1 g/dL (3.8-4.9); Albumin/Globulin Ratio 1.34 (1.60-3.17); Anion Gap 14.5 mmol/L (10.00-18.00); BUN/Creat Ratio 24.84 Ratio (12.00-20.00); Blood Urea Nitrogen 23.9 mg/dL (9.0-27.0); Calcium 9.2 mg/dL (8.7-10.3); Carbon Dioxide 26.3 mmol/L (20.0-27.5); Globulin 3.1 g/dL (1.6-3.3); Magnesium 1.9 mg/dL (1.5-2.4); Non-African American GFR(CKD) 61.9 (60.0-200.0); Potassium 3.4 mmol/L (3.5-5.5); Total Bilirubin 0.6 mg/dL (0.30-1.20); Total Protein 7.2 g/dL (6.2-8.2)
== END | disposition home or self-care (01) ==
LOC: LABWHC1 13:20
PROVIDERS: ATTEND Internal Medicine
DX: Z01.818 Encounter for other preprocedural examination (principal); I50.43 Acute on chronic combined systolic (congestive) and diastolic (congestive) heart failure; E10.9 Type 1 diabetes mellitus without complications; E03.9 Hypothyroidism, unspecified
CPT/HCPCS: 36415; 80053; 82728; 83540; 83550; 83735; 83880; 85025; 85610

== ENCOUNTER → 2021-10-21 | Outpatient (CLI) | payer MEDICARE ==
[2021-10-21 18:22] LABS: African American GFR (CKD) 65.3 (60.0-200.0); Anion Gap 11.4 mmol/L (10.00-18.00); BUN/Creat Ratio 22.21 Ratio (12.00-20.00); Blood Urea Nitrogen 23.1 mg/dL (9.0-27.0); Calcium 9.4 mg/dL (8.7-10.3); Carbon Dioxide 30.6 mmol/L (20.0-27.5); Non-African American GFR(CKD) 56.3 (60.0-200.0); Potassium 3.5 mmol/L (3.5-5.5)
== END | disposition home or self-care (01) ==
LOC: LABWHC1 11:15
PROVIDERS: ATTEND Internal Medicine Nephrology
DX: E87.1 Hypo-osmolality and hyponatremia (principal)
CPT/HCPCS: 36415; 80048

== ENCOUNTER → 2021-10-31 | Outpatient (CLI) | payer MEDICARE ==
[2021-10-31 18:28] LABS: Basophils # (A) 0.03 X 10*3/uL (0.00-0.10); Basophils % (A) 0.4 %; Eosinophils # (A) 0.03 X 10*3/uL (0.04-0.35); Eosinophils % (A) 0.4 %; HCT 39.3 % (37.2-46.3); HGB 12.9 g/dL (12.0-15.0); Immature Grans, Automated 0.6 %; Lymphocytes # (A) 0.81 X 10*3/uL (0.90-5.00); Lymphocytes % (A) 11.4 %; MCH 33.9 pg (27.0-32.0); MCHC 32.8 g/dL (32.0-37.0); MCV 103.4 fL (80.0-97.0); Mean Platelet Volume 10.2 fL (9.5-12.2); Monocytes # (A) 0.67 X 10*3/uL (0.20-1.00); Monocytes % (A) 9.4 %; NRBC Per 100 WBC 0 /100 WBCS (0.0-0.0); Neutrophils # (A) 5.53 X 10*3/uL (1.80-7.70); Neutrophils % (A) 77.8 %; Platelet Count 222 X 10*3/uL (140-440); RDW 12.8 % (11.5-14.5); WBC 7.11 X 10*3/uL (4.50-10.00)
[2021-10-31 18:37] LABS: ALT 17 U/L (8-44); AST 30 U/L (13-35); African American GFR (CKD) 70.8 (60.0-200.0); Albumin 4.3 g/dL (3.8-4.9); Albumin/Globulin Ratio 1.34 (1.60-3.17); Alkaline Phosphatase 69 U/L (41-126); BUN/Creat Ratio 28.06 Ratio (12.00-20.00); Blood Urea Nitrogen 27.3 mg/dL (9.0-27.0); Calcium 9.4 mg/dL (8.7-10.3); Carbon Dioxide 27.9 mmol/L (20.0-27.5); Chloride 89 mmol/L (96-109); Chol/HDL Ratio 2.62 Ratio; Globulin 3.2 g/dL (1.6-3.3); Glucose 162 mg/dL (70-110); LDL Cholesterol,Calculated 62.4 mg/dL (0.0-131.0); Non-African American GFR(CKD) 61.1 (60.0-200.0); Potassium 4.1 mmol/L (3.5-5.5); Sodium 127 mmol/L (135-145); Total Protein 7.4 g/dL (6.2-8.2); VLDL Calculation 16.22 mg/dL (5.00-40.00)
[2021-10-31 18:42] LABS: Protein, Total 7.1 g/dL (6.2-8.2)
[2021-10-31 21:49] LABS: Urine Creatinine 22.6 mg/dL (28.0-217.0)
== END | disposition home or self-care (01) ==
LOC: LABWHC1 10:30
PROVIDERS: ATTEND Internal Medicine Endocrinology, Diabetes & Metabolism
DX: I42.9 Cardiomyopathy, unspecified (principal); R55 Syncope and collapse; E87.1 Hypo-osmolality and hyponatremia; E11.9 Type 2 diabetes mellitus without complications; R06.02 Shortness of breath; E07.9 Disorder of thyroid, unspecified; E78.5 Hyperlipidemia, unspecified
CPT/HCPCS: 36415; 80053; 80061; 82043; 82570; 82785; 83036; 83880; 84165; 84439; 84443; 85025; 86334

== ENCOUNTER → 2021-12-16 | Outpatient (CLI) | payer MEDICARE ==
[2021-12-16 18:05] LABS: African American GFR (CKD) 74.1 (60.0-200.0); Anion Gap 12.1 mmol/L (10.00-18.00); BUN/Creat Ratio 29.78 Ratio (12.00-20.00); Blood Urea Nitrogen 27.9 mg/dL (9.0-27.0); Calcium 9.2 mg/dL (8.7-10.3); Carbon Dioxide 29.3 mmol/L (20.0-27.5); Magnesium 1.8 mg/dL (1.5-2.4); Non-African American GFR(CKD) 63.9 (60.0-200.0); Potassium 3.7 mmol/L (3.5-5.5)
== END | disposition home or self-care (01) ==
LOC: LABWHC1 12:42
PROVIDERS: ATTEND Internal Medicine Nephrology
DX: E87.6 Hypokalemia (principal)
CPT/HCPCS: 36415; 80048; 83735

== ENCOUNTER → 2022-01-23 | Outpatient (CLI) | payer MEDICARE ==
[2022-01-23 16:03] LABS: African American GFR (CKD) 79 (>60 ml/min/1.73 sqM); Anion Gap 3 mmol/L; Blood Urea Nitrogen 25 mg/dL (7-17); Calcium 8.9 mg/dL (8.4-10.2); Carbon Dioxide 36 mmol/L (22-30); Chloride 88 mmol/L (98-107); Glucose 94 mg/dL (74-99); Non-African American GFR(CKD) 68 (>60 ml/min/1.73 sqM); Potassium 3.9 mmol/L (3.5-5.1); Sodium 127 mmol/L (137-145)
[2022-01-23 17:44] LABS: Basophils # (A) 0.02 X 10*3/uL (0.00-0.10); Basophils % (A) 0.3 %; Eosinophils # (A) 0.03 X 10*3/uL (0.04-0.35); Eosinophils % (A) 0.5 %; HGB 13.5 g/dL (12.0-15.0); Immature Grans, Automated 0.6 %; Lymphocytes # (A) 0.78 X 10*3/uL (0.90-5.00); Lymphocytes % (A) 12.5 %; MCH 33.4 pg (27.0-32.0); MCHC 32.1 g/dL (32.0-37.0); Mean Platelet Volume 9.5 fL (9.5-12.2); Monocytes # (A) 0.72 X 10*3/uL (0.20-1.00); Monocytes % (A) 11.6 %; NRBC Per 100 WBC 0 /100 WBCS (0.0-0.0); Neutrophils # (A) 4.64 X 10*3/uL (1.80-7.70); Neutrophils % (A) 74.5 %; Platelet Count 194 X 10*3/uL (140-440); RBC 4.04 X 10*6/uL (4.10-5.20); RDW 13.6 % (11.5-14.5); WBC 6.23 X 10*3/uL (4.50-10.00)
[2022-01-23 23:36] LABS: % Iron Saturation 27.24 (12.00-45.00); Iron 97 ug/dL (50-170); Total Iron Binding Capacity 354 ug/dL (228-460)
== END | disposition home or self-care (01) ==
LOC: LABWHC1 13:51
PROVIDERS: ATTEND Internal Medicine Nephrology
DX: E87.1 Hypo-osmolality and hyponatremia (principal); N25.81 Secondary hyperparathyroidism of renal origin; E55.9 Vitamin D deficiency, unspecified; D64.9 Anemia, unspecified
CPT/HCPCS: 36415; 80048; 82306; 82728; 83540; 83550; 83930; 83935; 83970; 84300; 85025

== ENCOUNTER → 2022-02-28 | Outpatient (CLI) | payer MEDICARE ==
[2022-02-28 18:36] LABS: African American GFR (CKD) 67.7 (60.0-200.0); Anion Gap 11.3 mmol/L (10.00-18.00); BUN/Creat Ratio 18.71 Ratio (12.00-20.00); Blood Urea Nitrogen 18.9 mg/dL (9.0-27.0); Calcium 9.6 mg/dL (8.7-10.3); Carbon Dioxide 31.8 mmol/L (20.0-27.5); Magnesium 1.9 mg/dL (1.5-2.4); Non-African American GFR(CKD) 58.4 (60.0-200.0); Potassium 4.2 mmol/L (3.5-5.5)
== END | disposition home or self-care (01) ==
LOC: LABWHC1 10:58
PROVIDERS: ATTEND Internal Medicine
DX: I25.810 Atherosclerosis of coronary artery bypass graft(s) without angina pectoris (principal); E78.2 Mixed hyperlipidemia
CPT/HCPCS: 36415; 80048; 83735; 83880

== ENCOUNTER 2022-04-28 10:54 | Inpatient (IN) | payer MEDICARE ==
[2022-04-28 12:46] LABS: Basophils # (A) 0.1 k/uL (0-0.2); Basophils % (A) 1 %; Eosinophils % (A) 1 %; HCT 40.8 % (34.0-46.0); HGB 14.7 gm/dL (11.4-16.0); Lymphocytes # (A) 0.4 k/uL (1.0-4.8); Lymphocytes % (A) 7 %; MCH 35.8 pg (25.0-35.0); MCHC 36.1 g/dL (31.0-37.0); Mean Platelet Volume 7.8; Monocytes # (A) 0.6 k/uL (0-1.0); Monocytes % (A) 9 %; Neutrophils # (A) 5.2 k/uL (1.3-7.7); Neutrophils % (A) 81 %; Platelet Count 193 k/uL (150-450); RBC 4.12 m/uL (3.80-5.40); RDW 12.5 % (11.5-15.5); WBC 6.4 k/uL (3.8-10.6)
--- NOTE | 2022-04-28 12:59 | ED ---
General Adult HPI - General Chief complaint: Recheck/Abnormal Lab/Rx Stated complaint: Abnormal Labs, Sent by Time Seen by Provider: 04/28/22 11:00 Source: patient, RN notes reviewed, old records reviewed Mode of arrival: ambulatory Limitations: no limitations - History of Present Illness Initial comments: This is a 66-year-old female who has a long-standing history of hyponatremia and hypokalemia. 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 Patient states she's been extremely weak and tired lately. Patient denies any chest pain patient denies any shortness of breath worsened normal. Patient denies any recent fever chills or cough per patient denies any abdominal pain patient has nausea vomiting diarrhea. Patient states she is somewhat lightheaded on occasion when she stands up. Patient denies any swelling to the legs or calf tenderness. - Related Data Home Medications Medication Instructions Recorded Confirmed Omeprazole [PriLOSEC] 40 mg PO HS 02/02/14 10/03/21 Aspirin EC [Ecotrin Low Dose] 81 mg PO DAILY 11/12/20 10/03/21 Cholecalciferol [Vitamin D3 (25 50 mcg PO DAILY 11/12/20 10/03/21 Mcg = 1000 Iu)] Insulin Aspart (For Pump) [NovoLOG 0.01 unit SQ-PUMP CONTINUOUS 11/12/20 10/03/21 (For Pump)] Levothyroxine Sodium [Synthroid] 100 mcg PO MOTUWETHFRSA 11/12/20 10/03/21 Montelukast [Singulair] 10 mg PO DAILY 11/12/20 10/03/21 Multivit with Calcium,Iron,Min 1 tab PO DAILY 11/12/20 10/03/21 [Women's Multivitamin] Cyclobenzaprine [Flexeril] 10 mg PO BID 01/13/21 10/03/21 Metoclopramide HCl [Reglan] 5 mg PO DIRECTED PRN 01/13/21 10/03/21 Midodrine HCl [ProAmatine] 10 mg PO TID 10/03/21 10/03/21 Potassium Chloride [K-Tab ER] 10 meq PO DAILY 10/03/21 10/03/21 Rosuvastatin [Crestor] 20 mg PO DAILY 10/03/21 10/03/21 Vitamin B-12 (Unknown Dose) 1 tab PO DAILY 10/03/21 10/03/21 traZODone HCL 50 mg PO HS 10/03/21 10/03/21 Previous Rx's Medication Instructions Recorded Clopidogrel [Plavix] 75 mg PO DAILY 90 Days #90 tab 01/18/21 Allergies Allergy/AdvReac Type Severity Reaction Status Date / Time adhesive Allergy Unknown Verified 04/28/22 10:59 latex Allergy Itching Verified 04/28/22 10:59 amoxicillin [From Augmentin] AdvReac Nausea & Verified 04/28/22 10:59 Vomiting clarithromycin [From Biaxin] AdvReac Nausea & Verified 04/28/22 10:59 Vomiting clavulanic acid AdvReac Nausea & Verified 04/28/22 10:59 [From Augmentin] Vomiting codeine AdvReac Nausea & Verified 04/28/22 10:59 Vomiting nitrofurantoin AdvReac Nausea & Verified 04/28/22 10:59 [From Macrobid] Vomiting Review of Systems ROS Statement: Those systems with pertinent positive or pertinent negative responses have been documented in the HPI. ROS Other: All systems not noted in ROS Statement are negative. Past Medical History Past Medical History: Coronary Artery Disease (CAD), Diabetes Mellitus Additional Past Medical History / Comment(s): Fribrosis in september 2020 Last Myocardial Infarction Date:: 2001 History of Any Multi-Drug Resistant Organisms: None Reported Past Surgical History: Section, Coronary Bypass/CABG, Heart Catheterization With Stent, Hysterectomy, Tubal Ligation Additional Past Surgical History / Comment(s): cataract surgery, hand surgery, recent heart stent 02/12, Heart stent 03/07/2021 Past Anesthesia/Blood Transfusion Reactions: Postoperative Nausea & Vomiting (PONV) Date of Last Stent Placement:: 03/07/2021 Past Psychological History: Anxiety Smoking Status: Former smoker Past Alcohol Use History: Rare Past Drug Use History: None Reported - Past Family History Father Family Medical History: Deep Vein Thrombosis (DVT), Myocardial Infarction ([place]) Additional Family Medical History / Comment(s): Open heart surgery. Brother(s) Additional Family Medical History / Comment(s): Heart surgery. General Exam - General Exam Comments Initial Comments: GENERAL: Patient is well-developed and well-nourished. Patient is nontoxic and well- hydrated and is in mild distress. ENT: Neck is soft and supple. No significant lymphadenopathy is noted. Oropharynx is clear. Moist mucous membranes. Neck has full range of motion without eliciting any pain. EYES: The sclera were anicteric and conjunctiva were pink and moist. Extraocular movements were intact and pupils were equal round and reactive to light. Eyelids were unremarkable. PULMONARY: Unlabored respirations. Good breath sounds bilaterally. No audible rales rhonchi or wheezing was noted. CARDIOVASCULAR: There is a regular rate and rhythm without any murmurs gallops or rubs. ABDOMEN: Soft and nontender with normal bowel sounds. SKIN: Skin is clear with no lesions or rashes and otherwise unremarkable. NEUROLOGIC: Patient is alert and oriented x3. Cranial nerves II through XII are grossly intact. Motor and sensory are also intact. Normal speech, volume and content. Symmetrical smile. MUSCULOSKELETAL: Normal extremities with adequate strength and full range of motion. No lower extremity swelling or edema. No calf tenderness. LYMPHATICS: No significant lymphadenopathy is noted PSYCHIATRIC: Normal psychiatric evaluation. Limitations: no limitations Course Vital Signs 04/28/22 04/28/22 10:56 13:53 Temperature 97.6 F Pulse Rate 57 L 67 Respiratory 20 18 Rate Blood Pressure 137/81 139/75 O2 Sat by Pulse 99 Oximetry Medical Decision Making - Medical Decision Making Patient's potassium came back 2.6 and sodium Qubec 119. Patient was given a 500 mL bolus of normal saline. I spoke with the [facility] he agreed to admit the patient admitted the patient wrote admitting orders I consult to nephrology Dr. [place] - Lab Data Result diagrams: 04/28/22 12:23 04/28/22 12:23 Lab Results 04/28/22 04/28/22 Range/Units 12:23 12:23 WBC 6.4 (3.8-10.6) k/uL RBC 4.12 (3.80-5.40) m/uL Hgb 14.7 (11.4-16.0) gm/dL Hct 40.8 (34.0-46.0) % MCV 99.0 (80.0-100.0) fL MCH 35.8 H (25.0-35.0) pg MCHC 36.1 (31.0-37.0) g/dL RDW 12.5 (11.5-15.5) % Plt Count 193 (150-450) k/uL MPV 7.8 Neutrophils % 81 % Lymphocytes % 7 % Monocytes % 9 % Eosinophils % 1 % Basophils % 1 % Neutrophils # 5.2 (1.3-7.7) k/uL Lymphocytes # 0.4 L (1.0-4.8) k/uL Monocytes # 0.6 (0-1.0) k/uL Eosinophils # 0.0 (0-0.7) k/uL Basophils # 0.1 (0-0.2) k/uL Sodium 119 L* (137-145) mmol/L Potassium 2.6 L* (3.5-5.1) mmol/L Chloride 72 L* (98-107) mmol/L Carbon Dioxide 37 H (22-30) mmol/L Anion Gap 10 mmol/L BUN 46 H (7-17) mg/dL Creatinine 0.87 (0.52-1.04) mg/dL Est GFR (CKD-EPI)AfAm 81 (>60 ml/min/1.73 sqM) Est GFR (CKD-EPI)NonAf 70 (>60 ml/min/1.73 sqM) Glucose 153 H (74-99) mg/dL Calcium 8.9 (8.4-10.2) mg/dL Magnesium 2.0 (1.6-2.3) mg/dL Total Bilirubin 0.9 (0.2-1.3) mg/dL AST 41 H (14-36) U/L ALT 24 (4-34) U/L Alkaline Phosphatase 82 (38-126) U/L Total Protein 7.6 (6.3-8.2) g/dL Albumin 4.5 (3.5-5.0) g/dL Disposition Clinical Impression: Hyponatremia, Hypokalemia Disposition: ADMITTED IP TO THIS HOSP Referrals: Shamika Martins MD [Primary Care Provider] - 1-2 days Time of Disposition: 14:00
[2022-04-28 13:06] LABS: Albumin 4.5 g/dL (3.5-5.0); Calcium 8.9 mg/dL (8.4-10.2); Total Bilirubin 0.9 mg/dL (0.2-1.3); Total Protein 7.6 g/dL (6.3-8.2)
[2022-04-28 13:12] LABS: Potassium 2.6 mmol/L (3.5-5.1)
[2022-04-28] MEDS ORDERED: SODIUM CHLORIDE 0.9% 500 ML 500 ML IV ONE (13:16)
--- NOTE | 2022-04-28 13:55 | XR ---
EXAMINATION TYPE: XR chest 2V DATE OF EXAM: 04/28/2022 COMPARISON: 04/07/2021 HISTORY: Shortness of breath TECHNIQUE: Frontal and lateral views of the chest are obtained. FINDINGS: Scattered senescent parenchymal changes noted. Hyperinflation compatible with COPD. No evidence for infiltrate. No evidence for atelectasis. Basilar fibrosis are redemonstrated. Dual-le ad pacer is in place. Heart size is stable. Mediastinal structures are stable and grossly unremarkable. No evidence for hilar prominence. Degenerative changes dorsal spine. IMPRESSION: 1. No evidence for acute pulmonary disease. Stable appearance of the lung bases with underlying fibro sis.
[2022-04-28] MEDS ORDERED: POTASSIUM CHLORIDE IV ONE ×2 (14:23)
[2022-04-28] MEDS ORDERED: SODIUM CHLORIDE 0.9% IV ONE ×2 (14:23)
[2022-04-28] MEDS ORDERED: 0.9% NACL WITH KCL 20 MEQ/L 1,000 ML IV ONE (15:45)
[2022-04-28] MEDS ORDERED: CYCLOBENZAPRINE 10 MG TAB PO PRN (19:48)
[2022-04-28 19:56] LABS: Glucose,Whole Blood 183 mg/dL (70-110)
[2022-04-28] MEDS ORDERED: METOCLOPRAMIDE 5 MG TAB PO PRN (19:56)
[2022-04-28 20:32] LABS: Calcium 8.3 mg/dL (8.4-10.2)
[2022-04-28 20:38] LABS: Potassium 2.5 mmol/L (3.5-5.1)
[2022-04-28] MEDS ORDERED: POTASSIUM CHLORIDE ER 20 MEQ TAB.ER PO STA (20:45)
[2022-04-28] MEDS: busPIRone HCl 10 MG TAB PO SCH (21:00)
[2022-04-28] MEDS ORDERED: INSPUCOR MISCELLANE PRN (21:08)
[2022-04-28] MEDS ORDERED: INSULIN ASPART (NovoLOG) 100 UNIT/ML VIAL SQ PRN (21:08)
[2022-04-28] MEDS ORDERED: INSULIN PUMP BASAL RATES 1 EACH MISC MISCELLANE PRN (21:08)
[2022-04-28] MEDS: POTASSIUM CHLORIDE ER 20 MEQ TAB.ER PO SCH (21:23)
[2022-04-28] MEDS: Insulin Aspart (For Pump) 100 UNIT/ML VIAL SQ-PUMP SCH (21:48)
[2022-04-28] MEDS ORDERED: TEMAZEPAM 7.5 MG CAP PO PRN (23:11)
[2022-04-28] MEDS ORDERED: ACETAMINOPHEN TAB 325 MG TAB PO PRN (23:11)
--- NOTE | 2022-04-28 23:22 | P.HPIM ---
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 Patient had lab work-up done yesterday showed low sodium and potassium. Patient has been feeling weak and also having episodes of nausea and vomiting. Patient did have diarrhea 2 weeks ago. Patient does take metol azone, bumetanide and Aldactone at home due to leg swelling. Denies any complaints of chest pain or shortness of breath. No fever or chills. Patient felt somewhat lightheaded. Especially when she gets up and go to the bathroom. Denies any worsening leg swelling or calf tenderness. On admission blood pressure 137/80 1 mmHg heart rate 57 respiratory rate 20 and pulse ox 91% on room air. Laboratory data showed WBC 6.4 hemoglobin 14.7 platelets 193 Sodium 119, potassium 2.6 and chloride 72, BUN 46 and creatinine 0.87 blood sugar 153 AST 41 ALT 24 alk phos 82 and albumin 4.5. Chest x-ray showed no evidence of acute pulmonary disease. Stable appearance of the lung bases with underlying fibrosis. Review of Systems Constitutional: Patient denies any fever or chills . Generalized weakness. Abdomen: Does complain of nausea and vomiting. No diarrhea. No abd. pain Cardiovascular: Patient denies any chest pain or short of breath no palpitations. Respiratory: patient denied any cough . no sputum production. No shortness of breath Neurologic: Patient denied any numbness or tingling headache. Musculoskeletal: Patient denies any complaints of joint swelling or deformity. Skin: Negative Psychiatric: Negative Endocrine: No heat or cold intolerance. No recent weight gain. Genitourinary: No dysuria or hematuria. All other 14 point ROS negative except the above Past Medical History Past Medical History: Coronary Artery Disease (CAD), Diabetes Mellitus Additional Past Medical History / Comment(s): Pulmonary Fribrosis,raynaud's Last Myocardial Infarction Date:: 2001 History of Any Multi-Drug Resistant Organisms: None Reported Past Surgical History: AICD, Section, Coronary Bypass/CABG, Heart Catheterization With Stent, Hysterectomy, Pacemaker, Tubal Ligation Additional Past Surgical History / Comment(s): cataract surgery, hand surgery, recent heart stent 02/12, Heart stent 03/07/2021 Past Anesthesia/Blood Transfusion Reactions: Postoperative Nausea & Vomiting (PONV) Date of Last Stent Placement:: 03/07/2021 Type of Cardiac Device: Permanent Pacemaker, AICD Device Placement Date:: AngioSlide Past Psychological History: Anxiety, Depression Smoking Status: Former smoker Past Alcohol Use History: Rare Past Drug Use History: None Reported - Past Family History Father Family Medical History: Deep Vein Thrombosis (DVT), Myocardial Infarction ([place]) Additional Family Medical History / Comment(s): Open heart surgery. Brother(s) Additional Family Medical History / Comment(s): Heart surgery. Medications and Allergies Home Medications Medication Instructions Recorded Confirmed Type Omeprazole [PriLOSEC] 20 mg PO DAILY 02/02/14 04/28/22 History Aspirin EC [Ecotrin Low Dose] 81 mg PO DAILY 11/12/20 04/28/22 History Cholecalciferol [Vitamin D3 (25 50 mcg PO DAILY 11/12/20 04/28/22 History Mcg = 1000 Iu)] Insulin Aspart (For Pump) [NovoLOG 0.01 unit SQ-PUMP CONTINUOUS 11/12/20 04/28/22 History (For Pump)] Levothyroxine Sodium [Synthroid] 100 mcg PO MOTUWETHFRSA 11/12/20 04/28/22 History Montelukast [Singulair] 10 mg PO DAILY 11/12/20 04/28/22 History Multivit with Calcium,Iron,Min 1 tab PO DAILY 11/12/20 04/28/22 History [Women's Multivitamin] Cyclobenzaprine [Flexeril] 10 mg PO BID 01/13/21 04/28/22 History Metoclopramide HCl [Reglan] 5 mg PO TID PRN 01/13/21 04/28/22 History Clopidogrel [Plavix] 75 mg PO DAILY 90 Days #90 tab 01/18/21 04/28/22 Rx Potassium Chloride [K-Tab ER] 20 meq PO TID 10/03/21 04/28/22 History Rosuvastatin [Crestor] 20 mg PO DAILY 10/03/21 04/28/22 History traZODone HCL 50 mg PO HS 10/03/21 04/28/22 History Bumetanide [BUMEX] 2 mg PO BID 04/28/22 04/28/22 History LORazepam [Ativan] 0.5 mg PO DAILY@1200 04/28/22 04/28/22 History Midodrine [ProAmatine] 5 mg PO TID 04/28/22 04/28/22 History Spironolactone [Aldactone] 25 mg PO DAILY 04/28/22 04/28/22 History Ubidecarenone [Coenzyme Q10] 200 mg PO DAILY 04/28/22 04/28/22 History busPIRone HCl [Buspar] 10 mg PO BID 04/28/22 04/28/22 History metOLazone 2.5 mg PO DAILY PRN 04/28/22 04/28/22 History Allergies Allergy/AdvReac Type Severity Reaction Status Date / Time adhesive Allergy Unknown Verified 04/28/22 15:03 latex Allergy Itching Verified 04/28/22 15:03 amoxicillin [From Augmentin] AdvReac Nausea & Verified 04/28/22 15:03 Vomiting clarithromycin [From Biaxin] AdvReac Nausea & Verified 04/28/22 15:03 Vomiting clavulanic acid AdvReac Nausea & Verified 04/28/22 15:03 [From Augmentin] Vomiting codeine AdvReac Nausea & Verified 04/28/22 15:03 Vomiting nitrofurantoin AdvReac Nausea & Verified 04/28/22 15:03 [From Macrobid] Vomiting Penicillins AdvReac Nausea & Verified 04/28/22 15:03 Vomiting Physical Exam Vitals: Vital Signs Temp Pulse Pulse Resp BP BP Pulse Ox 04/28/22 19:57 97.9 F 69 16 115/61 96 04/28/22 18:23 97.9 F 74 16 112/50 94 L 04/28/22 17:53 72 16 97/64 95 04/28/22 13:53 67 18 139/75 04/28/22 10:56 97.6 F 57 L 20 137/81 99 Intake and Output 04/28/22 04/28/22 04/28/22 06:59 14:59 22:59 Other: Weight 68.039 kg 70.4 kg PHYSICAL EXAMINATION: Patient is lying in the bed comfortably, no acute distress, awake alert and oriented.. HEENT: Normocephalic. Neck is supple. Pupils reactive. Nostrils clear. Oral cavity is moist. Neck reveals no JVD, carotid bruits, or thyromegaly. CHEST EXAMINATION: Trachea is central. Symmetrical expansion. Lung nguyễn clear to auscultation and percussion. CARDIAC: Normal S1, S2 with no gallops. No murmurs ABDOMEN: Soft. Bowel sounds present. Nontender. No organomegaly. No abdominal bruits. Extremities: Trace bilateral pedal edema. No clubbing or cyanosis Neurologically awake, alert, oriented x3 with well-coordinated movements. No focal deficits noted Skin: No rash or skin lesions. Psychiatric: Coperative. Nonsuicidal, Musculoskeletal: No joint swelling or deformity. Normal range of motion. Results CBC & Chem 7: 04/28/22 12:23 04/28/22 20:06 Labs: Abnormal Lab Results - Last 24 Hours (Table) 04/28/22 04/28/22 04/28/22 Range/Units 12:23 12:23 19:54 MCH 35.8 H (25.0-35.0) pg Lymphocytes # 0.4 L (1.0-4.8) k/uL Sodium 119 L* (137-145) mmol/L Potassium 2.6 L* (3.5-5.1) mmol/L Chloride 72 L* (98-107) mmol/L Carbon Dioxide 37 H (22-30) mmol/L BUN 46 H (7-17) mg/dL Glucose 153 H (74-99) mg/dL POC Glucose (mg/dL) 183 H (70-110) mg/dL Calcium (8.4-10.2) mg/dL AST 41 H (14-36) U/L 04/28/22 Range/Units 20:06 MCH (25.0-35.0) pg Lymphocytes # (1.0-4.8) k/uL Sodium 120 L (137-145) mmol/L Potassium 2.5 L* (3.5-5.1) mmol/L Chloride 75 L (98-107) mmol/L Carbon Dioxide 34 H (22-30) mmol/L BUN 43 H (7-17) mg/dL Glucose 192 H (74-99) mg/dL POC Glucose (mg/dL) (70-110) mg/dL Calcium 8.3 L (8.4-10.2) mg/dL AST (14-36) U/L Thrombosis Risk Factor Assmnt - DVT/VTE Prophylaxis DVT/VTE Prophylaxis: Pharmacologic Prophylaxis ordered - Choose All That Apply Any of the Below Risk Factors Present?: Yes Other Risk Factors: Yes Each Risk Factor Represents 2 Points: Age 61-74 years Thrombosis Risk Factor Assessment Total Risk Factor Score: 2 Thrombosis Risk Factor Assessment Level: Low Risk Assessment and Plan Assessment: Severe hyponatremia and hypokalemia. Sodium 119 and potassium 2.6 on admission likely due to diuretic use. Dehydration volume depletion nausea and vomiting Diabetes type 2 insulin-dependent on pump. Coronary artery disease with history of stent placement History of CABG History of AICD placement Prior history of smoking DVT prophylaxis with heparin subcu Plan: Patient will be continued on IV hydration with normal saline and replace potassium and repeat potassium level. Bumetanide and metolazone is on hold. Continue telemetry monitoring and follow-up closely. Chronic insulin pump and continue other home medications. Prognosis is guarded. Discussed with the patient and her at bedside in detail. Time with Patient: Greater than 30
[2022-04-29] MEDS ORDERED: ACETAMINOPHEN TAB 325 MG TAB ONE (00:21)
[2022-04-29] MEDS ORDERED: TEMAZEPAM 7.5 MG CAP ONE (00:23)
[2022-04-29] MEDS: ACETAMINOPHEN TAB 325 MG TAB PO PRN ×2 (00:26→20:21)
[2022-04-29] MEDS: HEPARIN SODIUM,PORCINE/PF 5,000 UNIT/0.5 ML SYRINGE SQ SCH ×3 (00:27→17:23)
[2022-04-29] MEDS: TEMAZEPAM 7.5 MG CAP PO PRN ×2 (00:27→21:50)
[2022-04-29] MEDS: PANTOPRAZOLE 40 MG TABLET PO SCH (09:33)
[2022-04-29] MEDS: LEVOTHYROXINE 100 MCG TAB PO SCH (09:33)
[2022-04-29] MEDS: INSULIN PUMP MEAL BOLUS 1 UNIT MISC MISCELLANE SCH ×4 (09:33→20:22)
[2022-04-29] MEDS: ATORVASTATIN 40 MG TAB PO SCH (09:34)
[2022-04-29] MEDS: MONTELUKAST 10 MG TAB PO SCH (09:34)
[2022-04-29] MEDS: MULTIVITAMINS, THERA 1 EACH TAB PO SCH (09:34)
[2022-04-29] MEDS: MIDODRINE 5 MG TAB PO SCH ×3 (09:34→21:50)
[2022-04-29] MEDS: busPIRone HCl 10 MG TAB PO SCH ×2 (09:34→20:21)
[2022-04-29] MEDS: ASPIRIN 81 MG PO SCH (09:34)
[2022-04-29] MEDS: CHOLECALCIFEROL 25 MCG (1000 IU) TABLET PO SCH (09:34)
[2022-04-29] MEDS: CLOPIDOGREL 75 MG TAB PO SCH (09:34)
[2022-04-29] MEDS: POTASSIUM CHLORIDE ER 20 MEQ TAB.ER PO SCH ×2 (09:35→20:21)
[2022-04-29] MEDS: SPIRONOLACTONE 25 MG TAB PO SCH (09:35)
[2022-04-29 11:36] LABS: Glucose,Whole Blood 159 mg/dL (70-110)
[2022-04-29 11:37] LABS: Glucose,Whole Blood 186 mg/dL (70-110)
[2022-04-29 11:54] LABS: Glucose,Whole Blood 160 mg/dL (70-110)
[2022-04-29] MEDS: LORazepam 0.5 MG TAB PO SCH (12:25)
[2022-04-29 16:48] LABS: Glucose,Whole Blood 83 mg/dL (70-110)
[2022-04-29 16:54] LABS: Basophils % (A) 0 %; Eosinophils % (A) 1 %; HCT 40.7 % (34.0-46.0); HGB 14.2 gm/dL (11.4-16.0); Lymphocytes # (A) 0.7 k/uL (1.0-4.8); Lymphocytes % (A) 13 %; MCH 35.4 pg (25.0-35.0); MCHC 34.8 g/dL (31.0-37.0); MCV 101.6 fL (80.0-100.0); Macrocytosis Slight; Mean Platelet Volume 8.2; Monocytes # (A) 0.6 k/uL (0-1.0); Monocytes % (A) 11 %; Neutrophils # (A) 3.9 k/uL (1.3-7.7); Neutrophils % (A) 73 %; Platelet Count 183 k/uL (150-450); RBC 4.01 m/uL (3.80-5.40); WBC 5.3 k/uL (3.8-10.6)
--- NOTE | 2022-04-29 17:03 | P.NPCON ---
History of Present Illness - Reason for Consult Consult date: 04/29/22 hyponatremia - Chief Complaint Electrolyte abnormality - History of Present Illness Referred from outpatient office with electrolyte abnormality. History of CHF with systolic dysfunction and hyponatremia with a baseline sodium around 1:30. She has multiple admissions with similar problems and was maintained on as needed all wrapped in as outpatient. She also takes Bumex 2 mg twice a day, metolazone 2.5 mg daily and 60 mEq of potassium daily. On admission sodium was 120 with a potassium of 2.5. She was started on potassium replacements. Diuretics currently on hold except Aldactone. Denies nausea vomiting diarrhea. No weakness numbness or paresthesias. No falls or fractures. Review of Systems Constitutional: Reports as per HPI Past Medical History Past Medical History: Coronary Artery Disease (CAD), Diabetes Mellitus Additional Past Medical History / Comment(s): Pulmonary Fribrosis,raynaud's Last Myocardial Infarction Date:: 2001 History of Any Multi-Drug Resistant Organisms: None Reported Past Surgical History: AICD, Section, Coronary Bypass/CABG, Heart Catheterization With Stent, Hysterectomy, Pacemaker, Tubal Ligation Additional Past Surgical History / Comment(s): cataract surgery, hand surgery, recent heart stent 02/12, Heart stent 03/07/2021 Past Anesthesia/Blood Transfusion Reactions: Postoperative Nausea & Vomiting (PONV) Date of Last Stent Placement:: 03/07/2021 Type of Cardiac Device: Permanent Pacemaker, AICD Device Placement Date:: [employer] Past Psychological History: Anxiety, Depression Smoking Status: Former smoker Past Alcohol Use History: Rare Past Drug Use History: None Reported - Past Family History Father Family Medical History: Deep Vein Thrombosis (DVT), Myocardial Infarction (AL) Additional Family Medical History / Comment(s): Open heart surgery. Brother(s) Additional Family Medical History / Comment(s): Heart surgery. Medications and Allergies Home Medications Medication Instructions Recorded Confirmed Type Omeprazole [PriLOSEC] 20 mg PO DAILY 02/02/14 04/28/22 History Aspirin EC [Ecotrin Low Dose] 81 mg PO DAILY 11/12/20 04/28/22 History Cholecalciferol [Vitamin D3 (25 50 mcg PO DAILY 11/12/20 04/28/22 History Mcg = 1000 Iu)] Insulin Aspart (For Pump) [NovoLOG 0.01 unit SQ-PUMP CONTINUOUS 11/12/20 04/28/22 History (For Pump)] Levothyroxine Sodium [Synthroid] 100 mcg PO [id number] 11/12/20 04/28/22 History Montelukast [Singulair] 10 mg PO DAILY 11/12/20 04/28/22 History Multivit with Calcium,Iron,Min 1 tab PO DAILY 11/12/20 04/28/22 History [Women's Multivitamin] Cyclobenzaprine [Flexeril] 10 mg PO BID 01/13/21 04/28/22 History Metoclopramide HCl [Reglan] 5 mg PO TID PRN 01/13/21 04/28/22 History Clopidogrel [Plavix] 75 mg PO DAILY 90 Days #90 tab 01/18/21 04/28/22 Rx Potassium Chloride [K-Tab ER] 20 meq PO TID 10/03/21 04/28/22 History Rosuvastatin [Crestor] 20 mg PO DAILY 10/03/21 04/28/22 History traZODone HCL 50 mg PO HS 10/03/21 04/28/22 History Bumetanide [BUMEX] 2 mg PO BID 04/28/22 04/28/22 History LORazepam [Ativan] 0.5 mg PO DAILY@1200 04/28/22 04/28/22 History Midodrine [ProAmatine] 5 mg PO TID 04/28/22 04/28/22 History Spironolactone [Aldactone] 25 mg PO DAILY 04/28/22 04/28/22 History Ubidecarenone [Coenzyme Q10] 200 mg PO DAILY 04/28/22 04/28/22 History busPIRone HCl [Buspar] 10 mg PO BID 04/28/22 04/28/22 History metOLazone 2.5 mg PO DAILY PRN 04/28/22 04/28/22 History Allergies Allergy/AdvReac Type Severity Reaction Status Date / Time adhesive Allergy Unknown Verified 04/28/22 15:03 latex Allergy Itching Verified 04/28/22 15:03 amoxicillin [From Augmentin] AdvReac Nausea & Verified 04/28/22 15:03 Vomiting clarithromycin [From Biaxin] AdvReac Nausea & Verified 04/28/22 15:03 Vomiting clavulanic acid AdvReac Nausea & Verified 04/28/22 15:03 [From Augmentin] Vomiting codeine AdvReac Nausea & Verified 04/28/22 15:03 Vomiting nitrofurantoin AdvReac Nausea & Verified 04/28/22 15:03 [From Macrobid] Vomiting Penicillins AdvReac Nausea & Verified 04/28/22 15:03 Vomiting Physical Exam Vitals: Vital Signs Temp Pulse Pulse Resp BP BP Pulse Ox 04/29/22 14:00 71 16 04/29/22 12:00 71 16 111/57 97 04/29/22 09:36 97.8 F 86 16 110/57 92 L 04/29/22 08:00 86 16 04/29/22 01:25 18 04/29/22 00:00 80 18 127/69 98 04/28/22 20:00 16 04/28/22 19:57 97.9 F 69 16 115/61 96 04/28/22 18:23 97.9 F 74 16 112/50 94 L 04/28/22 17:53 72 16 97/64 95 Intake and Output 04/29/22 04/29/22 04/29/22 06:59 14:59 22:59 Intake Total 236 Balance 236 Intake: Oral 236 Other: Voiding Method Toilet Toilet # Voids 1 No acute distress S1-S2 heard Decreased breath sounds Edema Results - Lab Results Most recent lab results Calcium 8.3 mg/dL (8.4-10.2) L 04/28/22 20:06 Magnesium 2.0 mg/dL (1.6-2.3) 04/28/22 12:23 04/29/22 16:29 04/28/22 20:06 Assessment and Plan Assessment: #1 hypokalemia with hyponatremia secondary to diuretics, a dominantly metolazone #2 hypervolemic hyponatremia. #3 CHF with systolic dysfunction. #4 hypotension on midodrine Plan: #1 agree with holding diuretics. Continue with Aldactone. #2 replace potassium chloride, increased from 20-40 mEq twice a day. #3 start tolvaptan 15 mg one dose today. #4 check labs in the morning including magnesium.
[2022-04-29 17:40] LABS: African American GFR (CKD) >90 (>60 ml/min/1.73 sqM); Anion Gap 9 mmol/L; Blood Urea Nitrogen 28 mg/dL (7-17); Calcium 8.8 mg/dL (8.4-10.2); Carbon Dioxide 34 mmol/L (22-30); Chloride 81 mmol/L (98-107); Glucose 78 mg/dL (74-99); Non-African American GFR(CKD) 84 (>60 ml/min/1.73 sqM); Potassium 3.5 mmol/L (3.5-5.1); Sodium 124 mmol/L (137-145)
[2022-04-29] MEDS ORDERED: TOLVAPTAN 30 MG TABLET PO ONE (20:00)
[2022-04-29 20:19] LABS: Glucose,Whole Blood 184 mg/dL (70-110)
[2022-04-29] MEDS: Insulin Aspart (For Pump) 100 UNIT/ML VIAL SQ-PUMP SCH (20:21)
[2022-04-30] MEDS: HEPARIN SODIUM,PORCINE/PF 5,000 UNIT/0.5 ML SYRINGE SQ SCH ×4 (01:10→23:31)
[2022-04-30 02:05] LABS: Glucose,Whole Blood 134 mg/dL (70-110)
[2022-04-30] MEDS: PANTOPRAZOLE 40 MG TABLET PO SCH (06:19)
[2022-04-30 06:20] LABS: Glucose,Whole Blood 123 mg/dL (70-110)
[2022-04-30] MEDS: MIDODRINE 5 MG TAB PO SCH ×3 (09:18→20:35)
[2022-04-30] MEDS: busPIRone HCl 10 MG TAB PO SCH ×2 (09:18→20:35)
[2022-04-30] MEDS: CLOPIDOGREL 75 MG TAB PO SCH (09:19)
[2022-04-30] MEDS: ASPIRIN 81 MG PO SCH (09:19)
[2022-04-30] MEDS: SPIRONOLACTONE 25 MG TAB PO SCH (09:19)
[2022-04-30] MEDS: POTASSIUM CHLORIDE ER 20 MEQ TAB.ER PO SCH ×2 (09:19→20:35)
[2022-04-30] MEDS: MULTIVITAMINS, THERA 1 EACH TAB PO SCH (09:19)
[2022-04-30] MEDS: MONTELUKAST 10 MG TAB PO SCH (09:19)
[2022-04-30] MEDS: CHOLECALCIFEROL 25 MCG (1000 IU) TABLET PO SCH (09:19)
[2022-04-30] MEDS: ATORVASTATIN 40 MG TAB PO SCH (09:19)
[2022-04-30] MEDS: INSULIN PUMP MEAL BOLUS 1 UNIT MISC MISCELLANE SCH ×4 (09:20→20:27)
[2022-04-30 09:26] LABS: African American GFR (CKD) >90 (>60 ml/min/1.73 sqM); Anion Gap 9 mmol/L; Blood Urea Nitrogen 19 mg/dL (7-17); Calcium 8.6 mg/dL (8.4-10.2); Carbon Dioxide 33 mmol/L (22-30); Chloride 82 mmol/L (98-107); Glucose 236 mg/dL (74-99); Non-African American GFR(CKD) >90 (>60 ml/min/1.73 sqM); Potassium 3.6 mmol/L (3.5-5.1); Sodium 124 mmol/L (137-145)
--- NOTE | 2022-04-30 10:30 | P.PN ---
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 Patient had lab work-up done yesterday showed low sodium and potassium. Patient has been feeling weak and also having episodes of nausea and vomiting. Patient did have diarrhea 2 weeks ago. Patient does take metolazone, bumetanide and Aldactone at home due to leg swelling. Denies any complaints of chest pain or shortness of breath. No fever or chills. Patient felt somewhat lightheaded. Especially when she gets up and go to the bathroom. Denies any worsening leg swelling or calf tenderness. On admission blood pressure 137/80 1 mmHg heart rate 57 respiratory rate 20 and pulse ox 91% on room air. Laboratory data showed WBC 6.4 hemoglobin 14.7 platelets 193 Sodium 119, potassium 2.6 and chloride 72, BUN 46 and creatinine 0.87 blood sugar 153 AST 41 ALT 24 alk phos 82 and albumin 4.5. Chest x-ray showed no evidence of acute pulmonary disease. Stable appearance of the lung bases with underlying fibrosis. 04/29/2022 Patient is currently sitting up in the chair. Generalized weakness did improve. Otherwise patient states that one or 2 episodes of vomiting daily at home. Currently denied any nausea. No fever no chills. Was continued on IV hydration and sodium level improved to 124. IV fluids have been discontinued. Patient does have history of CHF. Patient was given a dose of Samsca and nephrology is on board. Potassium is being replaced. No complaints of chest pain or shortness of breath. No worsening leg swelling. No fever no chills. No cough or sputum production. Laboratory data showed WBC 5.3 hemoglobin 14.1 and platelets 183 Sodium 124 potassium 3.5) 81 bicarb is 24 BUN 2018 creatinine 0.75 and 8.8. Diuretics on Hold. Nephrology is on board. Current medications reviewed. Objective - Vital Signs Vital signs: Vital Signs Temp 98.1 F 04/29/22 16:00 Pulse 67 04/29/22 16:00 Resp 16 04/29/22 16:00 BP 119/66 04/29/22 16:00 Pulse Ox 96 04/29/22 16:00 FiO2 Intake & Output 04/29/22 04/29/22 04/30/22 06:59 18:59 05:59 Intake Total 354 Balance 354 Intake: Oral 354 Other: Voiding Method Toilet Toilet # Voids 1 1 - Exam PHYSICAL EXAMINATION: Patient is lying in the bed comfortably, no acute distress, awake alert and oriented.. HEENT: Normocephalic. Neck is supple. Pupils reactive. Nostrils clear. Oral cavity is moist. Neck reveals no JVD, carotid bruits, or thyromegaly. CHEST EXAMINATION: Trachea is central. Symmetrical expansion. Lung nguyễn clear to auscultation and percussion. CARDIAC: Normal S1, S2 with no gallops. No murmurs ABDOMEN: Soft. Bowel sounds normal. No organomegaly. No abdominal bruits. Extremities: Bilateral trace edema. No clubbing or cyanosis Neurologically awake, alert, oriented x3 with well-coordinated movements. No focal deficits noted Skin: No rash or skin lesions. Psychiatric: Coperative. Nonsuicidal Musculoskeletal: No joint swelling or deformity. Normal range of motion. - Labs CBC & Chem 7: 04/29/22 16:29 04/30/22 08:15 Labs: Abnormal Lab Results - Last 24 Hours (Table) 04/28/22 04/28/22 04/29/22 Range/Units 19:54 20:06 02:29 MCV (80.0-100.0) fL MCH (25.0-35.0) pg Lymphocytes # (1.0-4.8) k/uL Sodium 120 L (137-145) mmol/L Potassium 2.5 L* (3.5-5.1) mmol/L Chloride 75 L (98-107) mmol/L Carbon Dioxide 34 H (22-30) mmol/L BUN 43 H (7-17) mg/dL Glucose 192 H (74-99) mg/dL POC Glucose (mg/dL) 183 H 159 H (70-110) mg/dL Calcium 8.3 L (8.4-10.2) mg/dL 04/29/22 04/29/22 04/29/22 Range/Units 06:09 11:53 16:29 MCV (80.0-100.0) fL MCH (25.0-35.0) pg Lymphocytes # (1.0-4.8) k/uL Sodium 124 L (137-145) mmol/L Potassium (3.5-5.1) mmol/L Chloride 81 L (98-107) mmol/L Carbon Dioxide 34 H (22-30) mmol/L BUN 28 H (7-17) mg/dL Glucose (74-99) mg/dL POC Glucose (mg/dL) 186 H 160 H (70-110) mg/dL Calcium (8.4-10.2) mg/dL 04/29/22 Range/Units 16:29 MCV 101.6 H (80.0-100.0) fL MCH 35.4 H (25.0-35.0) pg Lymphocytes # 0.7 L (1.0-4.8) k/uL Sodium (137-145) mmol/L Potassium (3.5-5.1) mmol/L Chloride (98-107) mmol/L Carbon Dioxide (22-30) mmol/L BUN (7-17) mg/dL Glucose (74-99) mg/dL POC Glucose (mg/dL) (70-110) mg/dL Calcium (8.4-10.2) mg/dL Assessment and Plan Assessment: Severe hyponatremia and hypokalemia. Sodium 119 and potassium 2.6 on admission likely due to diuretic use. Improving now. Dehydration volume depletion, nausea and vomiting Diabetes type 2 insulin-dependent on pump. Coronary artery disease with history of stent placement Ischemic cardiomyopathy History of CABG History of AICD placement Prior history of smoking DVT prophylaxis with heparin subcu Plan: Patient will be continued on IV hydration with normal saline and replace potassium and repeat potassium level. Bumetanide and metolazone is on hold. Was given a dose of. Nephrology is on board. Continue with PPI. Patient will need GI follow-up as an outpatient. Continue telemetry monitoring and follow-up closely. Continue with insulin pump and continue other home medications. Prognosis is guarded. Discussed with the patient and her at bedside in detail. Time with Patient: Greater than 30
[2022-04-30 11:59] LABS: Glucose,Whole Blood 126 mg/dL (70-110)
[2022-04-30] MEDS: LORazepam 0.5 MG TAB PO SCH (12:14)
[2022-04-30 16:26] LABS: Glucose,Whole Blood 258 mg/dL (70-110)
[2022-04-30] MEDS ORDERED: TOLVAPTAN 15 MG 1/2 TABLET PO ONE (16:31)
--- NOTE | 2022-04-30 16:31 | P.PN ---
Subjective Progress Note Date: 04/30/22 Follow-up for hyponatremia and hypokalemia. Potassiums better, sodium still the same. No acute symptoms. Objective - Vital Signs Vital signs: Vital Signs Temp 97.8 F 04/30/22 16:00 Pulse 62 04/30/22 16:00 Resp 16 04/30/22 16:00 BP 113/69 04/30/22 16:00 Pulse Ox 95 04/30/22 16:00 FiO2 Intake & Output 04/29/22 04/30/22 04/30/22 19:59 06:59 18:59 Intake Total 480 Balance 480 Intake: Oral 480 Other: Voiding Method Toilet # Voids 2 - Exam No acute distress S1-S2 heard Lungs clear Abdomen soft Trace edema - Labs CBC & Chem 7: 04/29/22 16:29 04/30/22 08:15 Labs: Abnormal Lab Results - Last 24 Hours (Table) 04/29/22 04/29/22 04/30/22 Range/Units 16:29 20:17 02:03 Sodium 124 L (137-145) mmol/L Chloride 81 L (98-107) mmol/L Carbon Dioxide 34 H (22-30) mmol/L BUN 28 H (7-17) mg/dL Glucose (74-99) mg/dL POC Glucose (mg/dL) 184 H 134 H (70-110) mg/dL Hemoglobin A1c (0.0-6.0) % Osmolality (280-301) mosm/kg 04/30/22 04/30/22 04/30/22 Range/Units 05:57 08:15 08:15 Sodium 124 L (137-145) mmol/L Chloride 82 L (98-107) mmol/L Carbon Dioxide 33 H (22-30) mmol/L BUN 19 H (7-17) mg/dL Glucose 236 H (74-99) mg/dL POC Glucose (mg/dL) 123 H (70-110) mg/dL Hemoglobin A1c 8.3 H (0.0-6.0) % Osmolality 276 L (280-301) mosm/kg 04/30/22 04/30/22 Range/Units 11:55 16:25 Sodium (137-145) mmol/L Chloride (98-107) mmol/L Carbon Dioxide (22-30) mmol/L BUN (7-17) mg/dL Glucose (74-99) mg/dL POC Glucose (mg/dL) 126 H 258 H (70-110) mg/dL Hemoglobin A1c (0.0-6.0) % Osmolality (280-301) mosm/kg Assessment and Plan Assessment: #1 hypokalemia with hyponatremia secondary to diuretics, predominantly metolazone #2 hypervolemic hyponatremia. #3 CHF with systolic dysfunction. #4 hypotension on midodrine Plan: #1 agree with holding diuretics. Continue with Aldactone. #2 replace potassium chloride, increased from 20 to 40 mEq twice a day. #3 status post tolvaptan 15 mg yesterday. Give 1 more dose today. #4 check labs in the morning including magnesium.
[2022-04-30] MEDS: SODIUM CHLORIDE 0.9% 1,000 ML IV SCH (16:57)
[2022-04-30 19:58] LABS: Glucose,Whole Blood 225 mg/dL (70-110)
[2022-04-30] MEDS: Insulin Aspart (For Pump) 100 UNIT/ML VIAL SQ-PUMP SCH (20:27)
[2022-04-30] MEDS: TEMAZEPAM 7.5 MG CAP PO PRN (20:35)
[2022-04-30] MEDS: ACETAMINOPHEN TAB 325 MG TAB PO PRN (20:39)
[2022-05-01 01:55] LABS: Glucose,Whole Blood 156 mg/dL (70-110)
[2022-05-01 06:20] LABS: Glucose,Whole Blood 139 mg/dL (70-110)
[2022-05-01] MEDS: PANTOPRAZOLE 40 MG TABLET PO SCH (06:41)
[2022-05-01] MEDS: LEVOTHYROXINE 100 MCG TAB PO SCH (06:41)
[2022-05-01] MEDS: POTASSIUM CHLORIDE ER 20 MEQ TAB.ER PO SCH (08:37)
[2022-05-01] MEDS: ASPIRIN 81 MG PO SCH (08:37)
[2022-05-01] MEDS: CLOPIDOGREL 75 MG TAB PO SCH (08:37)
[2022-05-01] MEDS: busPIRone HCl 10 MG TAB PO SCH ×2 (08:37→21:16)
[2022-05-01] MEDS: MIDODRINE 5 MG TAB PO SCH ×3 (08:37→21:16)
[2022-05-01] MEDS: MULTIVITAMINS, THERA 1 EACH TAB PO SCH (08:37)
[2022-05-01] MEDS: CHOLECALCIFEROL 25 MCG (1000 IU) TABLET PO SCH (08:37)
[2022-05-01] MEDS: MONTELUKAST 10 MG TAB PO SCH (08:37)
[2022-05-01] MEDS: HEPARIN SODIUM,PORCINE/PF 5,000 UNIT/0.5 ML SYRINGE SQ SCH ×2 (08:37→17:08)
[2022-05-01] MEDS: ATORVASTATIN 40 MG TAB PO SCH (08:37)
[2022-05-01] MEDS: SPIRONOLACTONE 25 MG TAB PO SCH (08:37)
[2022-05-01] MEDS: INSULIN PUMP MEAL BOLUS 1 UNIT MISC MISCELLANE SCH ×4 (08:38→21:08)
[2022-05-01 09:20] LABS: Basophils % (A) 0 %; Eosinophils % (A) 1 %; HCT 40.2 % (34.0-46.0); HGB 13.3 gm/dL (11.4-16.0); Lymphocytes # (A) 0.4 k/uL (1.0-4.8); Lymphocytes % (A) 7 %; MCH 34.9 pg (25.0-35.0); MCV 105.9 fL (80.0-100.0); Macrocytosis Slight; Mean Platelet Volume 8.2; Monocytes # (A) 0.5 k/uL (0-1.0); Monocytes % (A) 8 %; Neutrophils # (A) 4.5 k/uL (1.3-7.7); Neutrophils % (A) 82 %; Platelet Count 176 k/uL (150-450); RDW 12.6 % (11.5-15.5); WBC 5.5 k/uL (3.8-10.6)
--- NOTE | 2022-05-01 09:44 | P.PN ---
Subjective Patient is seen in follow-up for hyponatremia. Sodium level 124 yesterday. Receiving normal saline at 50 mL an hour. Diuretics held. No vomiting or diarrhea. Oral intake fair. Vital signs are stable. General: Awake. No acute distress. HEENT: Head exam is unremarkable. LUNGS: Breath sounds decreased. HEART: Rate and Rhythm are regular. ABDOMEN: Soft, no distention. EXTREMITITES: No edema. Objective - Vital Signs Vital signs: Vital Signs Temp 97.9 F 05/01/22 03:36 Pulse 76 05/01/22 08:47 Resp 16 05/01/22 08:47 BP 105/68 05/01/22 08:47 Pulse Ox 94 L 05/01/22 08:47 FiO2 Intake & Output 04/30/22 05/01/22 05/01/22 18:59 06:59 18:59 Intake Total 480 118 Balance 480 118 Weight 71.3 kg Intake: Oral 480 118 Other: Voiding Method Toilet Toilet # Voids 2 0 - Labs CBC & Chem 7: 05/01/22 08:40 04/30/22 08:15 Labs: Abnormal Lab Results - Last 24 Hours (Table) 04/30/22 04/30/22 04/30/22 Range/Units 08:15 08:15 11:55 MCV (80.0-100.0) fL Lymphocytes # (1.0-4.8) k/uL POC Glucose (mg/dL) 126 H (70-110) mg/dL Hemoglobin A1c 8.3 H (0.0-6.0) % Osmolality 276 L (280-301) mosm/kg 04/30/22 04/30/22 05/01/22 Range/Units 16:25 19:56 01:54 MCV (80.0-100.0) fL Lymphocytes # (1.0-4.8) k/uL POC Glucose (mg/dL) 258 H 225 H 156 H (70-110) mg/dL Hemoglobin A1c (0.0-6.0) % Osmolality (280-301) mosm/kg 05/01/22 05/01/22 Range/Units 06:19 08:40 MCV 105.9 H (80.0-100.0) fL Lymphocytes # 0.4 L (1.0-4.8) k/uL POC Glucose (mg/dL) 139 H (70-110) mg/dL Hemoglobin A1c (0.0-6.0) % Osmolality (280-301) mosm/kg Assessment and Plan Plan: Assessment: 1. Hyponatremia. Slightly hypervolemic. Status post [facility] this admission. Diuretics held. 2. Chronic systolic CHF with ejection fraction of 20-25% with moderate to severe tricuspid regurgitation and severe pulmonary hypertension. 3. Hypokalemia secondary to diuretics. Replaced. Better. Magnesium normal. 4. Diabetes mellitus. Plan: Add 1500 mL fluid restriction. Encourage oral intake, especially protein. Continue to hold diuretics for now. Status post [facility] yesterday. Stop potassium supplementation. Follow-up morning labs.
[2022-05-01 10:01] LABS: African American GFR (CKD) >90 (>60 ml/min/1.73 sqM); Anion Gap 6 mmol/L; Blood Urea Nitrogen 22 mg/dL (7-17); Calcium 8.3 mg/dL (8.4-10.2); Carbon Dioxide 30 mmol/L (22-30); Chloride 92 mmol/L (98-107); Glucose 279 mg/dL (74-99); Non-African American GFR(CKD) 80 (>60 ml/min/1.73 sqM); Potassium 4.2 mmol/L (3.5-5.1); Sodium 128 mmol/L (137-145)
[2022-05-01 10:25] LABS: Glucose,Whole Blood 274 mg/dL (70-110)
[2022-05-01 11:45] LABS: Glucose,Whole Blood 239 mg/dL (70-110)
[2022-05-01] MEDS: LORazepam 0.5 MG TAB PO SCH (12:00)
[2022-05-01] MEDS: SODIUM CHLORIDE 0.9% 1,000 ML IV SCH (12:00)
[2022-05-01 16:45] LABS: Glucose,Whole Blood 86 mg/dL (70-110)
[2022-05-01 20:25] LABS: Glucose,Whole Blood 135 mg/dL (70-110)
[2022-05-01] MEDS: TEMAZEPAM 7.5 MG CAP PO PRN (21:16)
[2022-05-01] MEDS: Insulin Aspart (For Pump) 100 UNIT/ML VIAL SQ-PUMP SCH (21:17)
[2022-05-02] MEDS: HEPARIN SODIUM,PORCINE/PF 5,000 UNIT/0.5 ML SYRINGE SQ SCH ×3 (00:17→15:41)
[2022-05-02 02:27] LABS: Glucose,Whole Blood 115 mg/dL (70-110)
[2022-05-02 04:43] VITALS: TEMP 97.6
[2022-05-02 06:06] LABS: Glucose,Whole Blood 136 mg/dL (70-110)
[2022-05-02] MEDS: PANTOPRAZOLE 40 MG TABLET PO SCH (06:38)
[2022-05-02] MEDS: LEVOTHYROXINE 100 MCG TAB PO SCH (06:38)
[2022-05-02] MEDS: INSULIN PUMP MEAL BOLUS 1 UNIT MISC MISCELLANE SCH ×2 (06:39→12:21)
[2022-05-02] MEDS ORDERED: BUMETANIDE 0.25 MG/ML 4 ML VIAL IVP STA (08:53)
[2022-05-02] MEDS: ASPIRIN 81 MG PO SCH (09:36)
[2022-05-02] MEDS: MIDODRINE 5 MG TAB PO SCH ×2 (09:36→15:41)
[2022-05-02] MEDS: MONTELUKAST 10 MG TAB PO SCH (09:36)
[2022-05-02] MEDS: MULTIVITAMINS, THERA 1 EACH TAB PO SCH (09:36)
[2022-05-02] MEDS: ATORVASTATIN 40 MG TAB PO SCH (09:36)
[2022-05-02] MEDS: CHOLECALCIFEROL 25 MCG (1000 IU) TABLET PO SCH (09:36)
[2022-05-02] MEDS: SPIRONOLACTONE 25 MG TAB PO SCH (09:36)
[2022-05-02] MEDS: busPIRone HCl 10 MG TAB PO SCH (09:37)
[2022-05-02] MEDS: CLOPIDOGREL 75 MG TAB PO SCH (09:37)
--- NOTE | 2022-05-02 09:40 | P.PN ---
Subjective Patient is seen in follow-up for hyponatremia. Sodium level 128 yesterday. Off IV fluids. Diuretics held. No vomiting or diarrhea. Oral intake fair. Vital signs are stable. General: Awake. No acute distress. HEENT: Head exam is unremarkable. LUNGS: Breath sounds decreased. HEART: Rate and Rhythm are regular. ABDOMEN: Soft, no distention. EXTREMITITES: No edema. Objective - Vital Signs Vital signs: Vital Signs Temp 97.6 F 05/02/22 03:00 Pulse 72 05/02/22 08:21 Resp 20 05/02/22 03:00 BP 112/63 05/02/22 08:21 Pulse Ox 95 05/02/22 08:21 FiO2 Intake & Output 05/01/22 05/02/22 05/02/22 18:59 06:59 18:59 Intake Total 236 180 125 Balance 236 180 125 Weight 71.3 kg 71.8 kg Intake: Oral 236 180 125 Other: Voiding Method Toilet Toilet # Voids 2 1 - Labs CBC & Chem 7: 05/01/22 08:40 05/01/22 08:40 Labs: Abnormal Lab Results - Last 24 Hours (Table) 05/01/22 05/01/22 05/01/22 Range/Units 08:40 10:23 11:42 Sodium 128 L (137-145) mmol/L Chloride 92 L (98-107) mmol/L BUN 22 H (7-17) mg/dL Glucose 279 H (74-99) mg/dL POC Glucose (mg/dL) 274 H 239 H (70-110) mg/dL Calcium 8.3 L (8.4-10.2) mg/dL 05/01/22 05/02/22 05/02/22 Range/Units 20:23 02:24 06:05 Sodium (137-145) mmol/L Chloride (98-107) mmol/L BUN (7-17) mg/dL Glucose (74-99) mg/dL POC Glucose (mg/dL) 135 H 115 H 136 H (70-110) mg/dL Calcium (8.4-10.2) mg/dL Assessment and Plan Plan: Assessment: 1. Hyponatremia. Slightly hypervolemic. Status post [facility] this admission. Diuretics held. Sodium 128 yesterday. 2. Chronic systolic CHF with ejection fraction of 20-25% with moderate to severe tricuspid regurgitation and severe pulmonary hypertension. 3. Hypokalemia secondary to diuretics. Replaced. Better. Magnesium normal. 4. Diabetes mellitus. Plan: Maintain 1500 mL fluid restriction. Encourage oral intake, especially protein. Bumex 2 mg IV once today. Check chest x-ray. Follow-up morning labs. Advised patient to monitor her weight closely at home and to notify physician if gains more than 3 pounds in 1 week duration. I also discussed with her to take additional dose of Bumex if develops edema or weight gain rather than metolazone due to frequent hyponatremia. I advised to get BMP checked every 2 weeks for close monitoring of electrolytes. also present at bedside.
[2022-05-02 11:08] LABS: African American GFR (CKD) >90 (>60 ml/min/1.73 sqM); Anion Gap 4 mmol/L; Blood Urea Nitrogen 16 mg/dL (7-17); Calcium 8.4 mg/dL (8.4-10.2); Carbon Dioxide 32 mmol/L (22-30); Chloride 96 mmol/L (98-107); Glucose 101 mg/dL (74-99); Non-African American GFR(CKD) >90 (>60 ml/min/1.73 sqM); Potassium 4.8 mmol/L (3.5-5.1); Sodium 132 mmol/L (137-145)
--- NOTE | 2022-05-02 11:46 | P.PN ---
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 Patient had lab work-up done yesterday showed low sodium and potassium. Patient has been feeling weak and also having episodes of nausea and vomiting. Patient did have diarrhea 2 weeks ago. Patient does take metolazone, bumetanide and Aldactone at home due to leg swelling. Denies any complaints of chest pain or shortness of breath. No fever or chills. Patient felt somewhat lightheaded. Especially when she gets up and go to the bathroom. Denies any worsening leg swelling or calf tenderness. On admission blood pressure 137/80 1 mmHg heart rate 57 respiratory rate 20 and pulse ox 91% on room air. Laboratory data showed WBC 6.4 hemoglobin 14.7 platelets 193 Sodium 119, potassium 2.6 and chloride 72, BUN 46 and creatinine 0.87 blood sugar 153 AST 41 ALT 24 alk phos 82 and albumin 4.5. Chest x-ray showed no evidence of acute pulmonary disease. Stable appearance of the lung bases with underlying fibrosis. 04/29/2022 Patient is currently sitting up in the chair. Generalized weakness did improve. Otherwise patient states that one or 2 episodes of vomiting daily at home. Currently denied any nausea. No fever no chills. Was continued on IV hydration and sodium level improved to 124. IV fluids have been discontinued. Patient does have history of CHF. Patient was given a dose of Samsca and nephrology is on board. Potassium is being replaced. No complaints of chest pain or shortness of breath. No worsening leg swelling. No fever no chills. No cough or sputum production. Laboratory data showed WBC 5.3 hemoglobin 14.1 and platelets 183 Sodium 124 potassium 3.5) 81 bicarb is 24 BUN 2018 creatinine 0.75 and 8.8. Diuretics on Hold. Nephrology is on board. 04/30/2022 Patient is currently sitting in the chair. Awake alert and oriented 3. Symptomatically improved. of diarrhea and vomiting today. Sodium level is still at 124. Patient was given another dose of Samsca and nephrology is on board. Metolazone and Bumex is on hold. No complaints of chest pain or shortness of breath. No headache or dizziness or lightheadedness. No fever no chills. No cough or sputum production. Current medications reviewed. Objective - Vital Signs Vital signs: Vital Signs Temp 97.8 F 04/30/22 16:00 Pulse 62 04/30/22 16:00 Resp 16 04/30/22 16:00 BP 113/69 04/30/22 16:00 Pulse Ox 95 04/30/22 16:00 FiO2 Intake & Output 04/29/22 04/30/22 04/30/22 19:59 06:59 18:59 Intake Total 480 Balance 480 Intake: Oral 480 Other: Voiding Method Toilet # Voids 2 - Exam PHYSICAL EXAMINATION: Patient is lying in the bed comfortably, no acute distress, awake alert and oriented.. HEENT: Normocephalic. Neck is supple. Pupils reactive. Nostrils clear. Oral cavity is moist. Neck reveals no JVD, carotid bruits, or thyromegaly. CHEST EXAMINATION: Trachea is central. Symmetrical expansion. Lung nguyễn clear to auscultation and percussion. CARDIAC: Normal S1, S2 with no gallops. No murmurs ABDOMEN: Soft. Bowel sounds normal. No organomegaly. No abdominal bruits. Extremities: Bilateral trace edema. No clubbing or cyanosis Neurologically awake, alert, oriented x3 with well-coordinated movements. No focal deficits noted Skin: No rash or skin lesions. Psychiatric: Coperative. Nonsuicidal Musculoskeletal: No joint swelling or deformity. Normal range of motion. - Labs CBC & Chem 7: 05/01/22 08:40 05/02/22 09:52 Labs: Abnormal Lab Results - Last 24 Hours (Table) 04/29/22 04/30/22 04/30/22 Range/Units 20:17 02:03 05:57 Sodium (137-145) mmol/L Chloride (98-107) mmol/L Carbon Dioxide (22-30) mmol/L BUN (7-17) mg/dL Glucose (74-99) mg/dL POC Glucose (mg/dL) 184 H 134 H 123 H (70-110) mg/dL Hemoglobin A1c (0.0-6.0) % Osmolality (280-301) mosm/kg 04/30/22 04/30/2204/30/22 Range/Units 08:15 08:15 11:55 Sodium 124 L (137-145) mmol/L Chloride 82 L (98-107) mmol/L Carbon Dioxide 33 H (22-30) mmol/L BUN 19 H (7-17) mg/dL Glucose 236 H (74-99) mg/dL POC Glucose (mg/dL) 126 H (70-110) mg/dL Hemoglobin A1c 8.3 H (0.0-6.0) % Osmolality 276 L (280-301) mosm/kg 04/30/22 Range/Units 16:25 Sodium (137-145) mmol/L Chloride (98-107) mmol/L Carbon Dioxide (22-30) mmol/L BUN (7-17) mg/dL Glucose (74-99) mg/dL POC Glucose (mg/dL) 258 H (70-110) mg/dL Hemoglobin A1c (0.0-6.0) % Osmolality (280-301) mosm/kg Assessment and Plan Assessment: Severe hyponatremia and hypokalemia. Sodium 119 and potassium 2.6 on admission likely due to diuretic use. Improving now. Dehydration volume depletion, nausea and vomiting Diabetes type 2 insulin-dependent on pump. Coronary artery disease with history of stent placement Ischemic cardiomyopathy History of CABG History of AICD placement Prior history of smoking DVT prophylaxis with heparin subcu Plan: Patient will be continued on IV hydration with normal saline and replace potassium and repeat potassium level. Bumetanide and metolazone is on hold. Was given a dose of Samsca again today. Nephrology is on board. Continue with PPI. Patient will need GI follow-up as an outpatient. Continue telemetry monitoring and follow-up closely. Continue with insulin pump and continue other home medications. Prognosis is guarded. Discussed with the patient and her at bedside in detail. Discussed with the family at bedside in detail. Time with Patient: Greater than 30
--- NOTE | 2022-05-02 11:49 | P.PN ---
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 Patient had lab work-up done yesterday showed low sodium and potassium. Patient has been feeling weak and also having episodes of nausea and vomiting. Patient did have diarrhea 2 weeks ago. Patient does take metolazone, bumetanide and Aldactone at home due to leg swelling. Denies any complaints of chest pain or shortness of breath. No fever or chills. Patient felt somewhat lightheaded. Especially when she gets up and go to the bathroom. Denies any worsening leg swelling or calf tenderness. On admission blood pressure 137/80 1 mmHg heart rate 57 respiratory rate 20 and pulse ox 91% on room air. Laboratory data showed WBC 6.4 hemoglobin 14.7 platelets 193 Sodium 119, potassium 2.6 and chloride 72, BUN 46 and creatinine 0.87 blood sugar 153 AST 41 ALT 24 alk phos 82 and albumin 4.5. Chest x-ray showed no evidence of acute pulmonary disease. Stable appearance of the lung bases with underlying fibrosis. 04/29/2022 Patient is currently sitting up in the chair. Generalized weakness did improve. Otherwise patient states that one or 2 episodes of vomiting daily at home. Currently denied any nausea. No fever no chills. Was continued on IV hydration and sodium level improved to 124. IV fluids have been discontinued. Patient does have history of CHF. Patient was given a dose of Samsca and nephrology is on board. Potassium is being replaced. No complaints of chest pain or shortness of breath. No worsening leg swelling. No fever no chills. No cough or sputum production. Laboratory data showed WBC 5.3 hemoglobin 14.1 and platelets 183 Sodium 124 potassium 3.5) 81 bicarb is 24 BUN 2018 creatinine 0.75 and 8.8. Diuretics on Hold. Nephrology is on board. 04/30/2022 Patient is currently sitting in the chair. Awake alert and oriented 3. Symptomatically improved. of diarrhea and vomiting today. Sodium level is still at 124. Patient was given another dose of Samsca and nephrology is on board. Metolazone and Bumex is on hold. No complaints of chest pain or shortness of breath. No headache or dizziness or lightheadedness. No fever no chills. No cough or sputum production. 05/01/2022 Patient is sitting in the chair. Currently on Coumadin. No complains of chest pain or shortness of breath. Otherwise patient reported gaining weight last couple days. IV fluids have been discontinued and patient was kept on free water restriction. Nephrology is on board. Diuretics on hold. No complaints of nausea vomiting or diarrhea. No cough or sputum production. No fever no chills. Breast to be slightly elevated. Patient is on insulin pump. Current medications reviewed. Objective - Vital Signs Vital signs: Vital Signs Temp 98.8 F 05/01/22 16:00 Pulse 65 05/01/22 16:00 Resp 16 05/01/22 16:00 BP 112/72 05/01/22 16:00 Pulse Ox 97 05/01/22 16:00 FiO2 Intake & Output 05/01/22 05/01/22 05/02/22 06:59 18:59 06:59 Intake Total 236 Balance 236 Weight 71.3 kg Intake: Oral 236 Other: Voiding Method Toilet Toilet # Voids 0 2 - Exam PHYSICAL EXAMINATION: Patient is lying in the bed comfortably, no acute distress, awake alert and oriented.. HEENT: Normocephalic. Neck is supple. Pupils reactive. Nostrils clear. Oral cavity is moist. Neck reveals no JVD, carotid bruits, or thyromegaly. CHEST EXAMINATION: Trachea is central. Symmetrical expansion. Lung nguyễn clear to auscultation and percussion. CARDIAC: Normal S1, S2 with no gallops. No murmurs ABDOMEN: Soft. Bowel sounds normal. No organomegaly. No abdominal bruits. Extremities: Bilateral trace edema. No clubbing or cyanosis Neurologically awake, alert, oriented x3 with well-coordinated movements. No focal deficits noted Skin: No rash or skin lesions. Psychiatric: Coperative. Nonsuicidal Musculoskeletal: No joint swelling or deformity. Normal range of motion. - Labs CBC & Chem 7: 05/01/22 08:40 05/02/22 09:52 Labs: Abnormal Lab Results - Last 24 Hours (Table) 05/01/22 05/01/22 05/01/22 Range/Units 01:54 06:19 08:40 MCV 105.9 H (80.0-100.0) fL Lymphocytes # 0.4 L (1.0-4.8) k/uL Sodium (137-145) mmol/L Chloride (98-107) mmol/L BUN (7-17) mg/dL Glucose (74-99) mg/dL POC Glucose (mg/dL) 156 H 139 H (70-110) mg/dL Calcium (8.4-10.2) mg/dL 05/01/22 05/01/22 05/01/22 Range/Units 08:40 10:23 11:42 MCV (80.0-100.0) fL Lymphocytes # (1.0-4.8) k/uL Sodium 128 L (137-145) mmol/L Chloride 92 L (98-107) mmol/L BUN 22 H (7-17) mg/dL Glucose 279 H (74-99) mg/dL POC Glucose (mg/dL) 274 H 239 H (70-110) mg/dL Calcium 8.3 L (8.4-10.2) mg/dL 05/01/22 Range/Units 20:23 MCV (80.0-100.0) fL Lymphocytes # (1.0-4.8) k/uL Sodium (137-145) mmol/L Chloride (98-107) mmol/L BUN (7-17) mg/dL Glucose (74-99) mg/dL POC Glucose (mg/dL) 135 H (70-110) mg/dL Calcium (8.4-10.2) mg/dL Assessment and Plan Assessment: Severe hyponatremia and hypokalemia. Sodium 119 and potassium 2.6 on admission likely due to diuretic use. Improving now. Dehydration volume depletion, nausea and vomiting Diabetes type 2 insulin-dependent on pump. Coronary artery disease with history of stent placement Ischemic cardiomyopathy History of CABG History of AICD placement Prior history of smoking DVT prophylaxis with heparin subcu Plan: Continue to replace potassium and repeat potassium level. Bumetanide and metolazone is on hold. Patient was given a dose of Samsca 2.. Nephrology is on board. Continue with free water restriction. Continue with PPI. Patient will need GI follow-up as an outpatient. Continue telemetry monitoring and follow-up closely. Continue with insulin pump and continue other home medications. Discussed with the patient and her at bedside in detail. Time with Patient: Greater than 30
[2022-05-02 12:07] LABS: Glucose,Whole Blood 74 mg/dL (70-110)
[2022-05-02 12:26] VITALS: RESP 15
[2022-05-02] MEDS: LORazepam 0.5 MG TAB PO SCH (12:26)
--- NOTE | 2022-05-02 15:10 | XR ---
EXAMINATION TYPE: XR chest 1V DATE OF EXAM: 05/02/2022 1:54 PM COMPARISON: Chest radiographs from 04/28/2022 TECHNIQUE: XR chest 1V Frontal view of the chest. CLINICAL INDICATION:Female, 66 years old with history of sob; FINDINGS: Lungs/Pleura: There is no evidence of pleural effusion, focal consolidation, or pneumothorax. Increa sed Interstitial lung markings most pronounced in lung bases with superimposed COPD changes. No evide nce of focal consolidation or pneumothorax. Pulmonary vascularity: Unremarkable. Heart/mediastinum: Cardiomediastinal silhouette is enlarged and stable. Single-lead cardiac conductio n device overlying the left hemithorax with lead projecting over the right ventricle. Musculoskeletal: No acute osseous pathology. Surgical clips project over the mediastinum. IMPRESSION: 1. No acute cardiopulmonary disease/process. 2. Similar basilar fibrotic changes. 3. Similar cardiomegaly. 4. Similar COPD changes.
[2022-05-02 15:42] VITALS: BP 124/70; PULSE 62
[2022-05-02 17:05] LABS: Glucose,Whole Blood 127 mg/dL (70-110)
== END 2022-05-02 18:12 | disposition home or self-care (01) | DRG 641 ==
LOC: EC 10:54 → 3SCARD 14:23
PROVIDERS: ADMIT Internal Medicine; ATTEND Internal Medicine
DX: E87.1 Hypo-osmolality and hyponatremia (principal); I50.22 Chronic systolic (congestive) heart failure; E87.6 Hypokalemia; J84.10 Pulmonary fibrosis, unspecified; I25.10 Atherosclerotic heart disease of native coronary artery without angina pectoris; I25.5 Ischemic cardiomyopathy; I27.20 Pulmonary hypertension, unspecified; T50.2X5A Adverse effect of carbonic-anhydrase inhibitors, benzothiadiazides and other diuretics, initial encounter; I07.1 Rheumatic tricuspid insufficiency; I11.0 Hypertensive heart disease with heart failure; I95.9 Hypotension, unspecified; F32.A Depression, unspecified; F41.9 Anxiety disorder, unspecified; E86.0 Dehydration; E11.9 Type 2 diabetes mellitus without complications; Z96.41 Presence of insulin pump (external) (internal); Z95.5 Presence of coronary angioplasty implant and graft; Z95.1 Presence of aortocoronary bypass graft; Z87.891 Personal history of nicotine dependence; Z79.899 Other long term (current) drug therapy; Z79.890 Hormone replacement therapy; Z79.82 Long term (current) use of aspirin; Z95.810 Presence of automatic (implantable) cardiac defibrillator; Z79.02 Long term (current) use of antithrombotics/antiplatelets; I25.2 Old myocardial infarction; Z79.4 Long term (current) use of insulin; Z91.040 Latex allergy status; Z88.0 Allergy status to penicillin; Z88.1 Allergy status to other antibiotic agents; Z88.5 Allergy status to narcotic agent
CPT/HCPCS: 36415; 71045; 71046; 80048; 80053; 83036; 83735; 83930; 85025; 96360; 96361; 99285

== ENCOUNTER 2022-05-04 11:01 | Inpatient (IN) | payer MEDICARE ==
[2022-05-04] MEDS ORDERED: ONDANSETRON 4 MG/2 ML VIAL IVP STA (11:46)
--- NOTE | 2022-05-04 11:53 | ED ---
General Adult HPI - General Chief complaint: Syncope Stated complaint: Syncope Time Seen by Provider: 05/04/22 11:21 Source: patient Mode of arrival: ambulatory Limitations: no limitations - History of Present Illness Initial comments: Patient is a 66-year-old female who presents to the emergency department with a chief complaint of syncope. Patient recently admitted to our hospital for hyponatremia and hypokalemia. She was discharged 2 days ago with CHF medication changes. Hold bumex and decrease dosing of aldactone. She was started on tolvaptan and continued on potassium supplementation, 10 mg two tablets, TID which she has been taking as directed. Patient states she felt well after discharge until this morning when she felt very weak. Patient had a syncopal episode during which her caught her. She did not fall or hit her head. states patient was unconscious for about 2 minutes. She then almost had a second one. Patient currently reports weakness, fatigue, nausea, and mild SOB. No focal weakness. Also reports pain in both of her shoulders which is chronic in nature for her however is worse today. Denies injury. She denies fever, chills upper respiratory symptoms, chest pain, lightheadedness, dizziness, abdominal pain, nausea, vomiting, diarrhea, burning with urination. - Related Data Home Medications Medication Instructions Recorded Confirmed Omeprazole [PriLOSEC] 20 mg PO DAILY 02/02/14 04/28/22 Aspirin EC [Ecotrin Low Dose] 81 mg PO DAILY 11/12/20 04/28/22 Cholecalciferol [Vitamin D3 (25 50 mcg PO DAILY 11/12/20 04/28/22 Mcg = 1000 Iu)] Insulin Aspart (For Pump) [NovoLOG 0.01 unit SQ-PUMP CONTINUOUS 11/12/20 04/28/22 (For Pump)] Levothyroxine Sodium [Synthroid] 100 mcg PO [id number] 11/12/20 04/28/22 Montelukast [Singulair] 10 mg PO DAILY 11/12/20 04/28/22 Multivit with Calcium,Iron,Min 1 tab PO DAILY 11/12/20 04/28/22 [Women's Multivitamin] Cyclobenzaprine [Flexeril] 10 mg PO BID 01/13/21 04/28/22 Metoclopramide HCl [Reglan] 5 mg PO TID PRN 01/13/21 04/28/22 Potassium Chloride [K-Tab ER] 20 meq PO TID 10/03/21 04/28/22 Rosuvastatin [Crestor] 20 mg PO DAILY 10/03/21 04/28/22 traZODone HCL 50 mg PO HS 10/03/21 04/28/22 LORazepam [Ativan] 0.5 mg PO DAILY@1200 04/28/22 04/28/22 Midodrine [ProAmatine] 5 mg PO TID 04/28/22 04/28/22 Spironolactone [Aldactone] 25 mg PO DAILY 04/28/22 04/28/22 Ubidecarenone [Coenzyme Q10] 200 mg PO DAILY 04/28/22 04/28/22 busPIRone HCl [Buspar] 10 mg PO BID 04/28/22 04/28/22 metOLazone 2.5 mg PO DAILY PRN 04/28/22 04/28/22 Previous Rx's Medication Instructions Recorded Clopidogrel [Plavix] 75 mg PO DAILY 90 Days #90 tab 01/18/21 Bumetanide [BUMEX] 2 mg PO DAILY 30 Days #30 tab 05/02/22 Allergies Allergy/AdvReac Type Severity Reaction Status Date / Time adhesive Allergy Unknown Verified 05/04/22 11:15 latex Allergy Itching Verified 05/04/22 11:15 amoxicillin [From Augmentin] AdvReac Nausea & Verified 05/04/22 11:15 Vomiting clarithromycin [From Biaxin] AdvReac Nausea & Verified 05/04/22 11:15 Vomiting clavulanic acid AdvReac Nausea & Verified 05/04/22 11:15 [From Augmentin] Vomiting codeine AdvReac Nausea & Verified 05/04/22 11:15 Vomiting nitrofurantoin AdvReac Nausea & Verified 05/04/22 11:15 [From Macrobid] Vomiting Penicillins AdvReac Nausea & Verified 05/04/22 11:15 Vomiting Review of Systems ROS Statement: Those systems with pertinent positive or pertinent negative responses have been documented in the HPI. ROS Other: All systems not noted in ROS Statement are negative. Past Medical History Past Medical History: Coronary Artery Disease (CAD), Diabetes Mellitus Additional Past Medical History / Comment(s): Pulmonary Fribrosis,raynaud's Last Myocardial Infarction Date:: 2001 History of Any Multi-Drug Resistant Organisms: None Reported Past Surgical History: AICD, Section, Coronary Bypass/CABG, Heart Catheterization With Stent, Hysterectomy, Pacemaker, Tubal Ligation Additional Past Surgical History / Comment(s): cataract surgery, hand surgery, recent heart stent 02/12, Heart stent 03/07/2021 Past Anesthesia/Blood Transfusion Reactions: Postoperative Nausea & Vomiting (PONV) Date of Last Stent Placement:: 03/07/2021 Type of Cardiac Device: Permanent Pacemaker, AICD Device Placement Date:: Ludi labs Past Psychological History: Anxiety, Depression Smoking Status: Former smoker Past Alcohol Use History: Rare Past Drug Use History: None Reported - Past Family History Father Family Medical History: Deep Vein Thrombosis (DVT), Myocardial Infarction ([place]) Additional Family Medical History / Comment(s): Open heart surgery. Brother(s) Additional Family Medical History / Comment(s): Heart surgery. General Exam Limitations: no limitations General appearance: alert, in no apparent distress Eye exam: Present: normal appearance, PERRL, EOMI. Absent: scleral icterus, conjunctival injection, periorbital swelling Respiratory exam: Present: normal lung sounds bilaterally. Absent: respiratory distress, wheezes, rales, rhonchi, stridor Cardiovascular Exam: Present: regular rate, normal rhythm, normal heart sounds. Absent: systolic murmur, diastolic murmur, rubs, gallop, clicks, JVD, S3, S4 GI/Abdominal exam: Present: soft, normal bowel sounds. Absent: distended, tenderness, guarding, rebound, rigid Extremities exam: Present: normal inspection, full ROM, normal capillary refill. Absent: pedal edema Neurological exam: Present: alert, oriented X3, CN II-XII intact Psychiatric exam: Present: normal affect, normal mood Skin exam: Present: warm, dry, intact, normal color. Absent: rash Course Vital Signs 05/04/22 05/04/22 05/04/22 11:11 11:15 12:15 Temperature 97.8 F Pulse Rate 83 80 84 Respiratory 22 18 18 Rate Blood Pressure 105/63 107/67 110/71 O2 Sat by Pulse 90 L 96 94 L Oximetry 05/04/22 05/04/22 05/04/22 13:00 13:21 13:34 Temperature Pulse Rate 83 90 87 Respiratory 18 Rate Blood Pressure 118/72 O2 Sat by Pulse 98 Oximetry 05/04/22 14:00 Temperature Pulse Rate 76 Respiratory 18 Rate Blood Pressure 128/69 O2 Sat by Pulse 96 Oximetry EKG Findings - EKG Comments: EKG Findings:: EKG taken at 11:25, interpreted by me. Atrial paced rhythm, peaked T waves. Ventricular rate 77. IL interval 162. QRS duration 186. QTc 476 Medical Decision Making - Medical Decision Making This is a 66-year-old female presenting after syncope. Vitals within acceptable limits. Patient alert and oriented. No apparent distress. 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 EKG obtained and interpreted by me which shows an atrial paced rhythm, peaked T waves.Laboratory studies obtained. There is hyperkalemia at 6.7. Hyponatremia at 128, improved from 119 at patient's last emergency visit. BNP high at 8,180 increased from 2,750 at last visit this past February. Troponin elevated at 0.286, increased and 0.022 on 04/05/21. Urinalysis shows significant WBCs. Chest x-ray obtained and interpreted by me which was worsening bibasilar i nfiltrates and cardiomegaly. Hyperkalemia medication given. Repeat potassium 5.9. Pneumonia and urinary tract infection treated with doxycycline and Keflex. Patient given aspirin and heparin for NSTEMI. Results discussed with patient. Patient recently stopped taking diuretics however continued potassium supplementation. She will likely need potassium dosing adjustments. Case discussed with Dr. Yee who accepts admission. Cardiology and nephrology on consult. Patient admitted in stable condition. Dr. Salvador is my attending. - Lab Data Result diagrams: 05/04/22 11:51 05/04/22 14:20 Lab Results 05/04/22 05/04/22 05/04/22 Range/Units 11:40 11:51 11:51 WBC 9.1 (3.8-10.6) k/uL RBC 4.10 (3.80-5.40) m/uL Hgb 14.7 (11.4-16.0) gm/dL Hct 43.3 (34.0-46.0) % MCV 105.5 H (80.0-100.0) fL MCH 36.0 H (25.0-35.0) pg MCHC 34.1 (31.0-37.0) g/dL RDW 13.0 (11.5-15.5) % Plt Count 205 (150-450) k/uL MPV 8.4 Neutrophils % 89 % Lymphocytes % 5 % Monocytes % 4 % Eosinophils % 0 % Basophils % 0 % Neutrophils # 8.1 H (1.3-7.7) k/uL Lymphocytes # 0.5 L (1.0-4.8) k/uL Monocytes # 0.4 (0-1.0) k/uL Eosinophils # 0.0 (0-0.7) k/uL Basophils # 0.0 (0-0.2) k/uL Macrocytosis Slight Sodium 128 L (137-145) mmol/L Potassium 6.7 H* (3.5-5.1) mmol/L Chloride 90 L (98-107) mmol/L Carbon Dioxide 20 L (22-30) mmol/L Anion Gap 18 mmol/L BUN 26 H (7-17) mg/dL Creatinine 1.06 H (0.52-1.04) mg/dL Est GFR (CKD-EPI)AfAm 64 (>60 ml/min/1.73 sqM) Est GFR (CKD-EPI)NonAf 55 (>60 ml/min/1.73 sqM) Glucose 254 H (74-99) mg/dL Calcium 9.0 (8.4-10.2) mg/dL Magnesium 1.6 (1.6-2.3) mg/dL Total Bilirubin 1.7 H (0.2-1.3) mg/dL AST 63 H (14-36) U/L ALT 40 H (4-34) U/L Alkaline Phosphatase 111 (38-126) U/L Troponin I 0.286 H* (0.000-0.034) ng/mL NT-Pro-B Natriuret Pep pg/mL Total Protein 7.5 (6.3-8.2) g/dL Albumin 4.4 (3.5-5.0) g/dL Urine Color Urine Appearance (Clear) Urine pH (5.0-8.0) Ur Specific [place] (1.001-1.035) Urine Protein (Negative) Urine Glucose (UA) (Negative) Urine Ketones (Negative) Urine Blood (Negative) Urine Nitrite (Negative) Urine Bilirubin (Negative) Urine Urobilinogen (<2.0) mg/dL Ur Leukocyte Esterase (Negative) Urine RBC (0-5) /hpf Urine WBC (0-5) /hpf Urine WBC Clumps (None) /hpf Ur Squamous Epith Cells (0-4) /hpf Urine Bacteria (None) /hpf Hyaline Casts (0-2) /lpf Urine Mucus (None) /hpf Urine Osmolality (50-1400) mosm/kg 05/04/22 05/04/22 05/04/22 Range/Units 11:51 11:51 11:51 WBC (3.8-10.6) k/uL RBC (3.80-5.40) m/uL Hgb (11.4-16.0) gm/dL Hct (34.0-46.0) % MCV (80.0-100.0) fL MCH (25.0-35.0) pg MCHC (31.0-37.0) g/dL RDW (11.5-15.5) % Plt Count (150-450) k/uL MPV Neutrophils % % Lymphocytes % % Monocytes % % Eosinophils % % Basophils % % Neutrophils # (1.3-7.7) k/uL Lymphocytes # (1.0-4.8) k/uL Monocytes # (0-1.0) k/uL Eosinophils # (0-0.7) k/uL Basophils # (0-0.2) k/uL Macrocytosis Sodium (137-145) mmol/L Potassium (3.5-5.1) mmol/L Chloride (98-107) mmol/L Carbon Dioxide (22-30) mmol/L Anion Gap mmol/L BUN (7-17) mg/dL Creatinine (0.52-1.04) mg/dL Est GFR (CKD-EPI)AfAm (>60 ml/min/1.73 sqM) Est GFR (CKD-EPI)NonAf (>60 ml/min/1.73 sqM) Glucose (74-99) mg/dL Calcium (8.4-10.2) mg/dL Magnesium (1.6-2.3) mg/dL Total Bilirubin (0.2-1.3) mg/dL AST (14-36) U/L ALT (4-34) U/L Alkaline Phosphatase (38-126) U/L Troponin I (0.000-0.034) ng/mL NT-Pro-B Natriuret Pep 8180 pg/mL Total Protein (6.3-8.2) g/dL Albumin (3.5-5.0) g/dL Urine Color Dark Yellow Urine Appearance Turbid H (Clear) Urine pH 5.5 (5.0-8.0) Ur Specific [place] 1.026 (1.001-1.035) Urine Protein 2+ H (Negative) Urine Glucose (UA) Negative (Negative) Urine Ketones Negative (Negative) Urine Blood Small H (Negative) Urine Nitrite Negative (Negative) Urine Bilirubin 1+ H (Negative) Urine Urobilinogen 4.0 (<2.0) mg/dL Ur Leukocyte Esterase Large H (Negative) Urine RBC 12 H (0-5) /hpf Urine WBC >182 H (0-5) /hpf Urine WBC Clumps Many H (None) /hpf Ur Squamous Epith Cells 1 (0-4) /hpf Urine Bacteria Rare H (None) /hpf Hyaline Casts 27 H (0-2) /lpf Urine Mucus Rare H (None) /hpf Urine Osmolality 325 (50-1400) mosm/kg 05/04/22 Range/Units 14:20 WBC (3.8-10.6) k/uL RBC (3.80-5.40) m/uL Hgb (11.4-16.0) gm/dL Hct (34.0-46.0) % MCV (80.0-100.0) fL MCH (25.0-35.0) pg MCHC (31.0-37.0) g/dL RDW (11.5-15.5) % Plt Count (150-450) k/uL MPV Neutrophils % % Lymphocytes % % Monocytes % % Eosinophils % % Basophils % % Neutrophils # (1.3-7.7) k/uL Lymphocytes # (1.0-4.8) k/uL Monocytes # (0-1.0) k/uL Eosinophils # (0-0.7) k/uL Basophils # (0-0.2) k/uL Macrocytosis Sodium (137-145) mmol/L Potassium 5.9 H (3.5-5.1) mmol/L Chloride (98-107) mmol/L Carbon Dioxide (22-30) mmol/L Anion Gap mmol/L BUN (7-17) mg/dL Creatinine (0.52-1.04) mg/dL Est GFR (CKD-EPI)AfAm (>60 ml/min/1.73 sqM) Est GFR (CKD-EPI)NonAf (>60 ml/min/1.73 sqM) Glucose (74-99) mg/dL Calcium (8.4-10.2) mg/dL Magnesium (1.6-2.3) mg/dL Total Bilirubin (0.2-1.3) mg/dL AST (14-36) U/L ALT (4-34) U/L Alkaline Phosphatase (38-126) U/L Troponin I (0.000-0.034) ng/mL NT-Pro-B Natriuret Pep pg/mL Total Protein (6.3-8.2) g/dL Albumin (3.5-5.0) g/dL Urine Color Urine Appearance (Clear) Urine pH (5.0-8.0) Ur Specific [place] (1.001-1.035) Urine Protein (Negative) Urine Glucose (UA) (Negative) Urine Ketones (Negative) Urine Blood (Negative) Urine Nitrite (Negative) Urine Bilirubin (Negative) Urine Urobilinogen (<2.0) mg/dL Ur Leukocyte Esterase (Negative) Urine RBC (0-5) /hpf Urine WBC (0-5) /hpf Urine WBC Clumps (None) /hpf Ur Squamous Epith Cells (0-4) /hpf Urine Bacteria (None) /hpf Hyaline Casts (0-2) /lpf Urine Mucus (None) /hpf Urine Osmolality (50-1400) mosm/kg Disposition Clinical Impression: Hyperkalemia, Syncope, NSTEMI (non-ST elevated myocardial infarction), Nausea, Weakness, Elevated brain natriuretic peptide (BNP) level Disposition: ADMITTED IP TO THIS HOSP Condition: Fair Referrals: Shamika Martins MD [Primary Care Provider] - 1-2 days
[2022-05-04 11:58] LABS: Basophils % (A) 0 %; Eosinophils % (A) 0 %; HCT 43.3 % (34.0-46.0); HGB 14.7 gm/dL (11.4-16.0); Lymphocytes # (A) 0.5 k/uL (1.0-4.8); Lymphocytes % (A) 5 %; MCHC 34.1 g/dL (31.0-37.0); MCV 105.5 fL (80.0-100.0); Macrocytosis Slight; Mean Platelet Volume 8.4; Monocytes # (A) 0.4 k/uL (0-1.0); Monocytes % (A) 4 %; Neutrophils # (A) 8.1 k/uL (1.3-7.7); Neutrophils % (A) 89 %; Platelet Count 205 k/uL (150-450); WBC 9.1 k/uL (3.8-10.6)
[2022-05-04 12:06] LABS: Appearance,Urine Turbid (Clear); Bacteria,Urine Rare /hpf; Bilirubin,Urine 1+ (Negative); Blood,Urine Small (Negative); Color,Urine Dark Yellow; Glucose,Urine (UA) Negative (Negative); Hyaline Casts,Urine 27 /lpf (0-2); Ketones,Urine Negative (Negative); Leukocyte Esterase,Urine Large (Negative); Mucus,Urine Rare /hpf; Nitrite,Urine Negative (Negative); PH, Urine 5.5 (5.0-8.0); Protein,Urine 2+ (Negative); RBC,Urine 12 /hpf (0-5); Specific Gravity,Urine 1.026 (1.001-1.035); Squamous Epithelial Cell,Urine 1 /hpf (0-4); WBC,Urine >182 /hpf (0-5)
[2022-05-04 12:07] LABS: Albumin 4.4 g/dL (3.5-5.0); Magnesium 1.6 mg/dL (1.6-2.3); Total Bilirubin 1.7 mg/dL (0.2-1.3); Total Protein 7.5 g/dL (6.3-8.2)
--- NOTE | 2022-05-04 12:27 | XR ---
EXAMINATION TYPE: XR chest 2V DATE OF EXAM: 05/04/2022 COMPARISON: 05/02/2022 INDICATION: Syncope TECHNIQUE: Frontal and lateral views of the chest are obtained. FINDINGS: The heart size is large. The pulmonary vasculature is normal. Bibasilar infiltrates are present. Findings are worsening from comparison.. IMPRESSION: 1. Worsening bibasilar infiltrates. Correlate for pneumonia. 2. Cardiomegaly
[2022-05-04] MEDS ORDERED: IBUPROFEN 800 MG TAB PO STA (12:28)
[2022-05-04 12:29] LABS: Potassium 6.7 mmol/L (3.5-5.1)
[2022-05-04] MEDS ORDERED: INSULIN REGULAR 100 UNIT/ML VIAL (IV) IV ONE (12:36)
[2022-05-04] MEDS ORDERED: ALBUTEROL NEB (CONC) 2.5 MG/0.5 ML INHALATION ONE (12:36)
[2022-05-04] MEDS ORDERED: DEXTROSE 50% SYRINGE 50 ML IVP ONE (12:36)
[2022-05-04] MEDS ORDERED: SODIUM BICARB 8.4% 50 ML SYR (1 MEQ/ML) IV ONE (12:36)
[2022-05-04] MEDS ORDERED: CALCIUM GLUCONATE IN NACL 1 GM in SALINE 1 100ML.BAG IVPB ONE (12:36)
[2022-05-04] MEDS ORDERED: ASPIRIN 325 MG TAB PO STA (14:35)
[2022-05-04] MEDS ORDERED: HEPARIN SODIUM 1,000 UN/ML (10ML VL) IV PRN (14:39)
[2022-05-04] MEDS ORDERED: cefTRIAXone IN SWFI 1,000 MG/10 ML SYRINGE IVP STA (14:42)
[2022-05-04] MEDS ORDERED: DOXYCYCLINE 100 MG in SODIUM CHLORIDE 0.9% 100 ML IVPB ONE (14:55)
[2022-05-04] MEDS: HEPARIN SOD,PORK IN 0.45% NACL 25,000 UNIT in 0.45% NACL 1 250ML.BAG IV SCH (15:38)
[2022-05-04 15:47] LABS: INR 1.2 (<1.2); Prothrombin Time 12.7 sec (9.0-12.0)
[2022-05-04 15:48] LABS: Partial Thromboplastin Time 26.7 sec (22.0-30.0)
[2022-05-04] MEDS ORDERED: MAGNESIUM SULFATE-D5W PMX 1 GM in DEXTROSE/WATER 1 100ML.BAG IVPB ONE (16:05)
[2022-05-04 16:25] LABS: Basophils % (A) 0 %; Eosinophils % (A) 0 %; HCT 40.8 % (34.0-46.0); Lymphocytes # (A) 0.5 k/uL (1.0-4.8); Lymphocytes % (A) 5 %; MCH 35.3 pg (25.0-35.0); MCHC 34.3 g/dL (31.0-37.0); Macrocytosis Slight; Mean Platelet Volume 8.2; Monocytes # (A) 0.6 k/uL (0-1.0); Monocytes % (A) 6 %; Neutrophils # (A) 8.9 k/uL (1.3-7.7); Neutrophils % (A) 88 %; Platelet Count 172 k/uL (150-450); RBC 3.96 m/uL (3.80-5.40); RDW 12.7 % (11.5-15.5); WBC 10.1 k/uL (3.8-10.6)
[2022-05-04] MEDS ORDERED: Insulin Aspart (For Pump) 100 UNIT/ML VIAL SQ-PUMP SCH (16:45)
[2022-05-04] MEDS ORDERED: FUROSEMIDE 10 MG/ML 2 ML VIAL IV ONE (17:00)
[2022-05-04 17:42] LABS: Glucose,Whole Blood 191 mg/dL (70-110)
[2022-05-04] MEDS ORDERED: INSPUCOR MISCELLANE PRN (17:50)
[2022-05-04] MEDS ORDERED: INSULIN PUMP BASAL RATES 1 EACH MISC MISCELLANE PRN (17:50)
[2022-05-04] MEDS ORDERED: INSULIN ASPART (NovoLOG) 100 UNIT/ML VIAL SQ PRN (17:50)
[2022-05-04] MEDS ORDERED: LORazepam 2 MG/ML INJ IV STA (18:08)
[2022-05-04] MEDS ORDERED: SODIUM BICARB 8.4% 50 ML SYR (1 MEQ/ML) IV STA (18:13)
[2022-05-04] MEDS: LEVOTHYROXINE 100 MCG TAB PO SCH (18:24)
[2022-05-04] MEDS ORDERED: SODIUM ZIRCONIUM CYCLOSILICATE 10 GM PACKET PO ONE (18:30)
[2022-05-04] MEDS ORDERED: LORazepam 1 MG/0.5 ML VIAL IV STA (18:32)
[2022-05-04 20:10] LABS: Glucose,Whole Blood 472 mg/dL (70-110)
[2022-05-04 21:11] LABS: Glucose,Whole Blood 337 mg/dL (70-110)
[2022-05-04] MEDS: INSULIN PUMP MEAL BOLUS 1 UNIT MISC MISCELLANE SCH (21:28)
[2022-05-04] MEDS: MIDODRINE 5 MG TAB PO SCH (21:29)
[2022-05-04] MEDS: traZODone HCL 50 MG TAB PO SCH (21:29)
[2022-05-04] MEDS: busPIRone HCl 10 MG TAB PO SCH (21:29)
[2022-05-04] MEDS: ACETAMINOPHEN TAB 500 MG TAB PO PRN (21:35)
[2022-05-05 02:04] LABS: Glucose,Whole Blood 289 mg/dL (70-110)
[2022-05-05 06:16] LABS: Glucose,Whole Blood 97 mg/dL (70-110)
[2022-05-05] MEDS: INSULIN PUMP MEAL BOLUS 1 UNIT MISC MISCELLANE SCH ×4 (06:20→22:09)
--- NOTE | 2022-05-05 07:22 | XR ---
EXAMINATION TYPE: XR chest 1V DATE OF EXAM: 05/05/2022 HISTORY: Shortness of breath. COMPARISON: 05/01/2022 TECHNIQUE: Single view of the chest is submitted. FINDINGS: Demonstrated are scattered senescent parenchymal change. Basilar interstitial infiltrates may reflect pneumonia. Cardiomegaly without evidence for overt failure at this time. Hilar and mediastinal structures are within normal limits. Degenerative changes are seen of the dorsal spine. IMPRESSION: 1. Stable Basilar interstitial infiltrates may reflect pneumonia.
[2022-05-05] MEDS: LEVOTHYROXINE 100 MCG TAB PO SCH (08:42)
[2022-05-05] MEDS: busPIRone HCl 10 MG TAB PO SCH ×2 (08:42→22:06)
[2022-05-05] MEDS: MIDODRINE 5 MG TAB PO SCH ×3 (08:42→22:06)
[2022-05-05] MEDS: ATORVASTATIN 40 MG TAB PO SCH (08:43)
[2022-05-05] MEDS: CLOPIDOGREL 75 MG TAB PO SCH ×2 (08:43→10:18)
[2022-05-05] MEDS: MONTELUKAST 10 MG TAB PO SCH (08:43)
[2022-05-05] MEDS: PANTOPRAZOLE 40 MG TABLET PO SCH (08:43)
[2022-05-05] MEDS: ASPIRIN 81 MG PO SCH (08:43)
[2022-05-05 08:52] LABS: Basophils % (A) 0 %; Eosinophils % (A) 0 %; HCT 37.4 % (34.0-46.0); HGB 12.7 gm/dL (11.4-16.0); Lymphocytes # (A) 0.8 k/uL (1.0-4.8); Lymphocytes % (A) 13 %; MCH 35.5 pg (25.0-35.0); MCHC 33.8 g/dL (31.0-37.0); MCV 104.8 fL (80.0-100.0); Macrocytosis Slight; Monocytes # (A) 0.4 k/uL (0-1.0); Monocytes % (A) 6 %; Neutrophils # (A) 4.9 k/uL (1.3-7.7); Neutrophils % (A) 78 %; Platelet Count 161 k/uL (150-450); RBC 3.57 m/uL (3.80-5.40); RDW 12.6 % (11.5-15.5); WBC 6.3 k/uL (3.8-10.6)
[2022-05-05] MEDS ORDERED: BUMETANIDE 1 MG TAB PO SCH (09:00)
[2022-05-05 09:14] LABS: Calcium 8.6 mg/dL (8.4-10.2); Potassium 4.1 mmol/L (3.5-5.1)
--- NOTE | 2022-05-05 09:50 | P.HPIM ---
History of Present Illness H&P Date: 05/04/22 Chief Complaint: Syncope Patient is a 66-year-old male with a known history of chronic CHF, history of AICD placement, coronary artery disease status post CABG and stent placement, diabetes type 2 on insulin pump, coronary fibrosis, Maksim's disease, anxiety/depression prior history of smoking was brought to the hospital by her due to complaints of syncopal episode. Patient states that she felt very weak and had a syncopal episode. Her for her and did not have any fall. Patient lost consciousness for about 2-3 minutes as per . She has been having generalized weakness, fatigue and mild shortness of breath. Patient was recently admitted to the hospital due to severe hyponatremia and hypokalemia. She received dose of Samsca and was seen by nephrology. Balmex dose was reduced to daily and metolazone when necessary. Patient is also on Al dactone and potassium chloride 20 mg 3 times a day. Otherwise patient denied any cough or sputum production. No fever no chills. No abscess or vomiting. No diarrhea. No abdominal pain. On admission chest x-ray showed worsening bibasilar infiltrates. Correlate for pneumonia. Cardiomegaly EKG showed sinus rhythm with possible left atrial enlargement. , Laboratory data showed no recent 9.1 hemoglobin 14.7, MCV 105.5 and platelets 205 Sodium 128 potassium 6.7, chloride 90 bicarb is 20 BUN 26 and creatinine 1.06 Creatinine during recent admission is 0.7 Blood sugar 254 AST 63 ALT 40 alk phos 111 proBNP 8180, troponin 0.286, 1.750 Analysis showed turbid 2+ proteins nitrite negative large blisters with elevated RBCs and WBCs. Review of Systems Constitutional: Patient denies any fever or chills . Patient complained of generalized weakness and fatigue.. Abdomen: Patient does have nausea. No episodes of vomiting and diarrhea and abdominal pain. Cardiovascular: Patient denies any chest pain . Mild shortness of breath, no palpitations. Respiratory: patient denied any cough is from production. No shortness of breath Neurologic: Patient denied any numbness or tingling headache. Musculoskeletal: Patient denies any complaints of joint swelling or deformity. Skin: Negative Psychiatric: Negative Endocrine: No heat or cold intolerance. No recent weight gain. Genitourinary: No dysuria or hematuria. All other 14 point ROS negative except the above Past Medical History Past Medical History: Coronary Artery Disease (CAD), Diabetes Mellitus Additional Past Medical History / Comment(s): Pulmonary Fribrosis,raynaud's Last Myocardial Infarction Date:: 2001 History of Any Multi-Drug Resistant Organisms: None Reported Past Surgical History: AICD, Section, Coronary Bypass/CABG, Heart Catheterization With Stent, Hysterectomy, Pacemaker, Tubal Ligation Additional Past Surgical History / Comment(s): cataract surgery, hand surgery, recent heart stent 02/12, Heart stent 03/07/2021 Past Anesthesia/Blood Transfusion Reactions: Postoperative Nausea & Vomiting (PONV) Date of Last Stent Placement:: 03/07/2021 Type of Cardiac Device: Permanent Pacemaker, AICD Device Placement Date:: ICEX Past Psychological History: Anxiety, Depression Smoking Status: Former smoker Past Alcohol Use History: Rare Past Drug Use History: None Reported - Past Family History Father Family Medical History: Deep Vein Thrombosis (DVT), Myocardial Infarction ([place]) Additional Family Medical History / Comment(s): Open heart surgery. Brother(s) Additional Family Medical History / Comment(s): Heart surgery. Mother Family Medical History: No Reported History Medications and Allergies Home Medications Medication Instructions Recorded Confirmed Type Omeprazole [PriLOSEC] 20 mg PO DAILY 02/02/14 05/04/22 History Aspirin EC [Ecotrin Low Dose] 81 mg PO DAILY 11/12/20 05/04/22 History Cholecalciferol [Vitamin D3 (25 50 mcg PO DAILY 11/12/20 05/04/22 History Mcg = 1000 Iu)] Insulin Aspart (For Pump) [NovoLOG 0.01 unit SQ-PUMP CONTINUOUS 11/12/20 05/04/22 History (For Pump)] Levothyroxine Sodium [Synthroid] 100 mcg PO MOTUWETHFRSA 11/12/20 05/04/22 History Montelukast [Singulair] 10 mg PO DAILY 11/12/20 05/04/22 History Multivit with Calcium,Iron,Min 1 tab PO DAILY 11/12/20 05/04/22 History [Women's Multivitamin] Cyclobenzaprine [Flexeril] 10 mg PO BID 01/13/21 05/04/22 History Metoclopramide HCl [Reglan] 5 mg PO TID PRN 01/13/21 05/04/22 History Clopidogrel [Plavix] 75 mg PO DAILY 90 Days #90 tab 01/18/21 05/04/22 Rx Potassium Chloride [K-Tab ER] 20 meq PO TID 10/03/21 05/04/22 History Rosuvastatin [Crestor] 20 mg PO DAILY 10/03/21 05/04/22 History traZODone HCL 50 mg PO HS 10/03/21 05/04/22 History LORazepam [Ativan] 0.5 mg PO DAILY@1200 04/28/22 05/04/22 History Midodrine [ProAmatine] 5 mg PO TID 04/28/22 05/04/22 History Spironolactone [Aldactone] 25 mg PO DAILY 04/28/22 05/04/22 History Ubidecarenone [Coenzyme Q10] 200 mg PO DAILY 04/28/22 05/04/22 History busPIRone HCl [Buspar] 10 mg PO BID 04/28/22 05/04/22 History metOLazone 2.5 mg PO DAILY PRN 04/28/22 05/04/22 History Bumetanide [BUMEX] 2 mg PO DAILY 30 Days #30 tab 05/02/22 05/04/22 Rx Allergies Allergy/AdvReac Type Severity Reaction Status Date / Time adhesive Allergy Unknown Verified 05/04/22 15:25 latex Allergy Itching Verified 05/04/22 15:25 amoxicillin [From Augmentin] AdvReac Nausea & Verified 05/04/22 15:25 Vomiting clarithromycin [From Biaxin] AdvReac Nausea & Verified 05/04/22 15:25 Vomiting clavulanic acid AdvReac Nausea & Verified 05/04/22 15:25 [From Augmentin] Vomiting codeine AdvReac Nausea & Verified 05/04/22 15:25 Vomiting nitrofurantoin AdvReac Nausea & Verified 05/04/22 15:25 [From Macrobid] Vomiting Penicillins AdvReac Nausea & Verified 05/04/22 15:25 Vomiting Physical Exam Vitals: Vital Signs Temp Pulse Resp BP Pulse Ox 05/04/22 15:35 77 18 111/69 95 05/04/22 14:00 76 18 128/69 96 05/04/22 13:34 87 05/04/22 13:21 90 05/04/22 13:00 83 18 118/72 98 11/10/22 12:15 84 18 110/71 94 L 05/04/22 11:15 80 18 107/67 96 05/04/22 11:11 97.8 F 83 22 105/63 90 L Intake and Output 05/04/22 05/04/22 05/04/22 06:59 14:59 22:59 Other: Weight 69.853 kg PHYSICAL EXAMINATION: Patient is lying in the bed comfortably, no acute distress, awake alert and oriented.. HEENT: Normocephalic. Neck is supple. Pupils reactive. Nostrils clear. Oral cavity is moist. Neck reveals no JVD, carotid bruits, or thyromegaly. CHEST EXAMINATION: Trachea is central. Symmetrical expansion. Left basilar crackles. No wheezing or rhonchi.. CARDIAC: Normal S1, S2 with no gallops. No murmurs ABDOMEN: Soft. Bowel sounds normal. No organomegaly. No abdominal bruits. Extremities: reveal no edema. No clubbing or cyanosis Neurologically awake, alert, oriented x3 with well-coordinated movements. No focal deficits noted Skin: No rash or skin lesions. Psychiatric: Coperative. Nonsuicidal Musculoskeletal: No joint swelling or deformity. Normal range of motion. Results CBC & Chem 7: 05/07/22 08:14 05/07/22 12:08 Labs: Abnormal Lab Results - Last 24 Hours (Table) 05/04/22 05/04/22 05/04/22 Range/Units 11:40 11:51 11:51 MCV 105.5 H (80.0-100.0) fL MCH 36.0 H (25.0-35.0) pg Neutrophils # 8.1 H (1.3-7.7) k/uL Lymphocytes # 0.5 L (1.0-4.8) k/uL PT (9.0-12.0) sec INR (<1.2) Sodium 128 L (137-145) mmol/L Potassium 6.7 H* (3.5-5.1) mmol/L Chloride 90 L (98-107) mmol/L Carbon Dioxide 20 L (22-30) mmol/L BUN 26 H (7-17) mg/dL Creatinine 1.06 H (0.52-1.04) mg/dL Glucose 254 H (74-99) mg/dL Total Bilirubin 1.7 H (0.2-1.3) mg/dL AST 63 H (14-36) U/L ALT 40 H (4-34) U/L Troponin I 0.286 H* (0.000-0.034) ng/mL Urine Appearance (Clear) Urine Protein (Negative) Urine Blood (Negative) Urine Bilirubin (Negative) Ur Leukocyte Esterase (Negative) Urine RBC (0-5) /hpf Urine WBC (0-5) /hpf Urine WBC Clumps (None) /hpf Urine Bacteria (None) /hpf Hyaline Casts (0-2) /lpf Urine Mucus (None) /hpf 05/04/22 05/04/22 05/04/22 Range/Units 11:51 14:20 15:30 MCV (80.0-100.0) fL MCH (25.0-35.0) pg Neutrophils # (1.3-7.7) k/uL Lymphocytes # (1.0-4.8) k/uL PT 12.7 H (9.0-12.0) sec INR 1.2 H (<1.2) Sodium (137-145) mmol/L Potassium 5.9 H (3.5-5.1) mmol/L Chloride (98-107) mmol/L Carbon Dioxide (22-30) mmol/L BUN (7-17) mg/dL Creatinine (0.52-1.04) mg/dL Glucose (74-99) mg/dL Total Bilirubin (0.2-1.3) mg/dL AST (14-36) U/L ALT (4-34) U/L Troponin I (0.000-0.034) ng/mL Urine Appearance Turbid H (Clear) Urine Protein 2+ H (Negative) Urine Blood Small H (Negative) Urine Bilirubin 1+ H (Negative) Ur Leukocyte Esterase Large H (Negative) Urine RBC 12 H (0-5) /hpf Urine WBC >182 H (0-5) /hpf Urine WBC Clumps Many H (None) /hpf Urine Bacteria Rare H (None) /hpf Hyaline Casts 27 H (0-2) /lpf Urine Mucus Rare H (None) /hpf 05/04/22 Range/Units 15:45 MCV 103.0 H (80.0-100.0) fL MCH 35.3 H (25.0-35.0) pg Neutrophils # 8.9 H (1.3-7.7) k/uL Lymphocytes # 0.5 L (1.0-4.8) k/uL PT (9.0-12.0) sec INR (<1.2) Sodium (137-145) mmol/L Potassium (3.5-5.1) mmol/L Chloride (98-107) mmol/L Carbon Dioxide (22-30) mmol/L BUN (7-17) mg/dL Creatinine (0.52-1.04) mg/dL Glucose (74-99) mg/dL Total Bilirubin (0.2-1.3) mg/dL AST (14-36) U/L ALT (4-34) U/L Troponin I (0.000-0.034) ng/mL Urine Appearance (Clear) Urine Protein (Negative) Urine Blood (Negative) Urine Bilirubin (Negative) Ur Leukocyte Esterase (Negative) Urine RBC (0-5) /hpf Urine WBC (0-5) /hpf Urine WBC Clumps (None) /hpf Urine Bacteria (None) /hpf Hyaline Casts (0-2) /lpf Urine Mucus (None) /hpf Thrombosis Risk Factor Assmnt - DVT/VTE Prophylaxis DVT/VTE Prophylaxis: Pharmacologic Prophylaxis ordered Assessment and Plan Assessment: Generalized weakness and fatigue Acute kidney injury likely prerenal due to diuretic use and volume depletion Hyperkalemia secondary to acute kidney injury and potassium supplementation. Elevated troponin level possible non-ST elevated MA Chronic CHF with systolic dysfunction ejection fraction 20-25% .s/p AICD placement Moderate to severe TR Severe pulmonary hypertension Diabetes type 2 insulin-dependent on insulin pump. Anxiety/depression Prior history of smoking DVT prophylaxis Plan: Patient will be continued telemetry monitoring. Patient was given insulin/dextrose, sodium bicarbonate in the ER. Potassium level is normalized. Patient will be current on Bumex 2 mg daily and spironolactone. Cardiology and nephrology was consulted. Continue to follow closely. Time with Patient: Greater than 30
--- NOTE | 2022-05-05 09:52 | P.NPCON ---
History of Present Illness - Reason for Consult acute renal failure, hyponatremia - History of Present Illness Reason for consultation: Acute kidney injury and hyponatremia History of present illness: Patient is a 66-year-old female seen in renal consultation for acute kidney injury and hyponatremia. Patient baseline creatinine is near 1 and is 1.28 today. Sodium level was 128 yesterday and is 129 today. Patient was recently discharged from this facility 2 days ago and at that time was admitted with hyponatremia with sodium 119 on admission. She did receive IV fluids as well as Samsca and diuretics were held. Upon discharge diuretics were resumed but at a lower dose. Patient does of systolic CHF with ejection fraction of 20-25% with moderate to severe tricuspid regurgitation and severe pulmonary hypertension. Patient went home and felt dizzy and had a near syncopal episode witnessed by her . She was initially brought back to the hospital. She was also noted to be hyperkalemic from potassium supplementation. Potassium was 6.7 on admission and was medically treated. It is down to 4.1 this morning. She admits to good urine output. She denies any edema at this time. No chest pain or shortness of breath. Blood pressure stable. Good urine output. No hematuria. Chest x-ray suggestive of pneumonia. She is currently on heparin drip. Vital signs are stable. General: Awake. No acute distress. HEENT: Head exam is unremarkable. LUNGS: Breath sounds decreased. HEART: Rate and Rhythm are regular. ABDOMEN: Soft, no distention. EXTREMITITES: No edema. Past Medical History Past Medical History: Coronary Artery Disease (CAD), Diabetes Mellitus Additional Past Medical History / Comment(s): Pulmonary Fribrosis, Raynaud's, recent admission for hyponatremia and hypokalemia discharged 2 days ago. Last Myocardial Infarction Date:: 2001 History of Any Multi-Drug Resistant Organisms: None Reported Past Surgical History: AICD, Section, Coronary Bypass/CABG, Heart Catheterization With Stent, Hysterectomy, Pacemaker, Tubal Ligation Additional Past Surgical History / Comment(s): Cataract surgery, hand surgery, recent heart stent 02/12, Heart stent 03/07/2021, pacemaker/AICD in 2010 Past Anesthesia/Blood Transfusion Reactions: Postoperative Nausea & Vomiting (PONV) Date of Last Stent Placement:: 03/07/2021 Type of Cardiac Device: Permanent Pacemaker, AICD Device Placement Date:: [employer] Past Psychological History: Anxiety, Depression Smoking Status: Former smoker Past Alcohol Use History: None Reported Past Drug Use History: None Reported - Past Family History Father Family Medical History: Deep Vein Thrombosis (DVT), Myocardial Infarction ([place]) Additional Family Medical History / Comment(s): Open heart surgery. Brother(s) Additional Family Medical History / Comment(s): Heart surgery. Mother Family Medical History: No Reported History Medications and Allergies Home Medications Medication Instructions Recorded Confirmed Type Omeprazole [PriLOSEC] 20 mg PO DAILY 02/02/14 05/04/22 History Aspirin EC [Ecotrin Low Dose] 81 mg PO DAILY 11/12/20 05/04/22 History Cholecalciferol [Vitamin D3 (25 50 mcg PO DAILY 11/12/20 05/04/22 History Mcg = 1000 Iu)] Insulin Aspart (For Pump) [NovoLOG 0.01 unit SQ-PUMP CONTINUOUS 11/12/20 05/04/22 History (For Pump)] Levothyroxine Sodium [Synthroid] 100 mcg PO MOTUWETHFRSA 11/12/20 05/04/22 History Montelukast [Singulair] 10 mg PO DAILY 11/12/20 05/04/22 History Multivit with Calcium,Iron,Min 1 tab PO DAILY 11/12/20 05/04/22 History [Women's Multivitamin] Cyclobenzaprine [Flexeril] 10 mg PO BID 01/13/21 05/04/22 History Metoclopramide HCl [Reglan] 5 mg PO TID PRN 01/13/21 05/04/22 History Clopidogrel [Plavix] 75 mg PO DAILY 90 Days #90 tab 01/18/21 05/04/22 Rx Potassium Chloride [K-Tab ER] 20 meq PO TID 10/03/21 05/04/22 History Rosuvastatin [Crestor] 20 mg PO DAILY 10/03/21 05/04/22 History traZODone HCL 50 mg PO HS 10/03/21 05/04/22 History LORazepam [Ativan] 0.5 mg PO DAILY@1200 04/28/22 05/04/22 History Midodrine [ProAmatine] 5 mg PO TID 04/28/22 05/04/22 History Spironolactone [Aldactone] 25 mg PO DAILY 04/28/22 05/04/22 History Ubidecarenone [Coenzyme Q10] 200 mg PO DAILY 04/28/22 05/04/22 History busPIRone HCl [Buspar] 10 mg PO BID 04/28/22 05/04/22 History metOLazone 2.5 mg PO DAILY PRN 04/28/22 05/04/22 History Bumetanide [BUMEX] 2 mg PO DAILY 30 Days #30 tab 05/02/22 05/04/22 Rx Allergies Allergy/AdvReac Type Severity Reaction Status Date / Time adhesive Allergy Unknown Verified 05/04/22 15:25 latex Allergy Itching Verified 05/04/22 15:25 amoxicillin [From Augmentin] AdvReac Nausea & Verified 05/04/22 15:25 Vomiting clarithromycin [From Biaxin] AdvReac Nausea & Verified 05/04/22 15:25 Vomiting clavulanic acid AdvReac Nausea & Verified 05/04/22 15:25 [From Augmentin] Vomiting codeine AdvReac Nausea & Verified 05/04/22 15:25 Vomiting nitrofurantoin AdvReac Nausea & Verified 05/04/22 15:25 [From Macrobid] Vomiting Penicillins AdvReac Nausea & Verified 05/04/22 15:25 Vomiting Physical Exam Vitals: Vital Signs Temp Pulse Pulse Resp BP BP Pulse Ox 05/05/22 08:36 98.3 F 64 18 136/72 96 05/05/22 07:17 98 05/05/22 05:00 98.1 F 64 16 127/67 90 L 05/05/22 02:00 64 18 05/04/22 23:39 97.8 F 64 18 118/72 93 L 05/04/22 20:00 97.6 F 63 16 115/68 94 L 05/04/22 18:54 97.9 F 78 18 113/67 93 L 05/04/22 17:49 71 16 103/63 92 L 05/04/22 15:35 77 18 111/69 95 05/04/22 14:00 76 18 128/69 96 05/04/22 13:34 87 05/04/22 13:21 90 05/04/22 13:00 83 18 118/72 98 05/04/22 12:15 84 18 110/71 94 L 05/04/22 11:15 80 18 107/67 96 05/04/22 11:11 97.8 F 83 22 105/63 90 L Intake and Output 05/04/22 05/05/22 05/05/22 22:59 06:59 14:59 Intake Total 70.129 Output Total 100 Balance -100 70.129 Intake: Intake, IV Titration 70.129 Amount Heparin Sod,Pork in 0.45% 70.129 NaCl 25,000 unit In 0.45 % NaCl 1 250ml.bag @ 12 UNITS/KG/HR 8.382 mls/hr IV .Q24H [facility] Rx#: [id number] Output: Urine 100 Other: Voiding Method Bedside Commode Bedside Commode Weight 69.853 kg Results - Lab Results Most recent lab results Calcium 8.6 mg/dL (8.4-10.2) 05/05/22 08:34 Magnesium 1.6 mg/dL (1.6-2.3) 05/04/22 11:51 05/05/22 08:34 05/05/22 08:34 Assessment and Plan Plan: Assessment: 1. Acute kidney injury mostly prerenal from hemodynamics and diuresis. Also received ibuprofen this admission. Creatinine 1.28 today. Baseline creatinine near 1. 2. Hyperkalemia secondary to potassium supplementation. Improved with medical management. 3. Chronic systolic CHF with ejection fraction of 20-25% with moderate to severe tricuspid regurgitation and severe pulmonary hypertension. 4. Hyponatremia. Slightly hypervolemic. Urine sodium 27 and urine osmolality 325. 5. Syncope. 6. Non-ST elevated myocardial infarction with elevated troponins. Currently on IV heparin. Cardiology following. 7. Pyuria. Received Rocephin this admission. Urine culture pending. 8. Diabetes mellitus. Plan: Maintain Bumex 2 mg once daily. 1200 mL fluid restriction. Encouraged oral intake, particularly protein. Check TSH. Follow-up echocardiogram. Follow-up cultures. Blood sugar control. Avoid nephrotoxins. Repeat labs in the morning. Thank you for the consultation. I will continue to follow the patient with you during her hospital stay.
[2022-05-05 11:34] LABS: Glucose,Whole Blood 129 mg/dL (70-110)
[2022-05-05] MEDS: LORazepam 0.5 MG TAB PO SCH (12:32)
--- NOTE | 2022-05-05 12:44 | P.CRDCN ---
History of Present Illness History of present illness: HISTORY OF PRESENT ILLNESS: This is a 65 year old female with a past medical history significant for coronary artery disease with previous CABG x 4 in 2001 and PCI 01/12 and 03/15, ischemic cardiomyopathy, AICD implantation, hypertension, hyperlipidemia, ischemic cardiomyopathy and diabetes. Patient follows with Dr. Ambriz. She was recently admitted last week secondary to hypokalemia and lab abnormalities and therefore received electrolyte supplementation and workup one week ago. She was discharged for approximately 2 days and then started having some back pain which she admits felt somewhat similar to her prior angina. She then was walking to a gravesite and then had a syncopal episode. Overall she states she has been feeling fairly well other than some fatigue. Denies any of the back pain currently. She does have prior history of syncope and is being worked up for hyponatremia as well as borderline low blood pressures and is seeing Dr. Burns with advanced heart failure from [facility]. Blood work showed hyperkalemia with potassium 6.7, sodium 128, mild acute kidney injury with baseline creatinine approximately 0.7 and up to 1.0-1.2, troponin 0.2, 1.7, 2.5. Blood pressures have been in the 120s to 130s. Previous cardiac cath with Dr. Thompson in December 2020 with PCI of the SVG to PDA. REVIEW OF SYSTEMS: At the time of my exam: CONSTITUTIONAL: Denies fever or chills. HEENT: Denies blurred vision, vision changes, or eye pain. Denies hemoptysis CARDIOVASCULAR: Denies chest pain. Denies orthopnea. Denies PND. Denies palpitations. Previous back pain may be concerning for angina RESPIRATORY: Denies shortness of breath. GASTROINTESTINAL: Denies abdominal pain. Denies nausea or vomiting. HEMATOLOGIC: Denies bleeding disorders. GENITOURINARY: Denies any blood in urine. SKIN: Denies pruitis. Denies rash. PHYSICAL EXAM: VITAL SIGNS: Reviewed. GENERAL: Well-developed in no acute distress. HEENT: Head is normocephalic. Pupils are equal, round. Sclerae anicteric. Mucous membranes of the mouth are moist. Neck supple. No JVD or thyromegaly LUNGS: Respirations even and unlabored. Lungs diminished to auscultation bilaterally. HEART: Regular rate and rhythm. S1 and S2 heard. ABDOMEN: Soft. Nondistended. Nontender. EXTREMITIES: Normal range of motion. No clubbing or cyanosis. Peripheral pulses intact. Trace lower extremity edema NEUROLOGIC: Awake and alert. Oriented x 3. ASSESSMENT: NSTEMI, concerning for Type 1 etiology with some additional back pain Syncope, rule out cardiogenic source Nausea and vomiting Hyponatremia Hypomagnesemia Coronary artery disease with PCI SVG to right PDA, December 2020 and additional stenting in February 2021, details unknown History of CABG x 2001 Ischemic cardiomyopathy, status post AICD Hypertension Hyperlipidemia Pulmonary fibrosis Diabetes mellitus PLAN: Obtain 2D echo to assess cardiac structure and function Interrogate AICD Continue heparin drip Patient did have some hyperkalemia and syncope may been the result of arrhythmia. Interrogate AICD. Significantly elevated troponin however with some back pain similar to angina and patient will likely require heart catheterization. Monitor creatinine and if stable likely perform heart catheterization 05/06 or 05/07. Further recommendations to follow. Past Medical History Past Medical History: Coronary Artery Disease (CAD), Diabetes Mellitus Additional Past Medical History / Comment(s): Pulmonary Fribrosis,raynaud's Last Myocardial Infarction Date:: 2001 History of Any Multi-Drug Resistant Organisms: None Reported Past Surgical History: AICD, Section, Coronary Bypass/CABG, Heart Cat heterization With Stent, Hysterectomy, Pacemaker, Tubal Ligation Additional Past Surgical History / Comment(s): cataract surgery, hand surgery, recent heart stent 02/12, Heart stent 03/07/2021 Past Anesthesia/Blood Transfusion Reactions: Postoperative Nausea & Vomiting (PONV) Date of Last Stent Placement:: 03/07/2021 Type of Cardiac Device: Permanent Pacemaker, AICD Device Placement Date:: [facility] [employer] Past Psychological History: Anxiety, Depression Smoking Status: Former smoker Past Alcohol Use History: Rare Past Drug Use History: None Reported - Past Family History Father Family Medical History: Deep Vein Thrombosis (DVT), Myocardial Infarction (NV) Additional Family Medical History / Comment(s): Open heart surgery. Brother(s) Additional Family Medical History / Comment(s): Heart surgery. Mother Family Medical History: No Reported History Medications and Allergies Home Medications Medication Instructions Recorded Confirmed Type Omeprazole [PriLOSEC] 20 mg PO DAILY 02/02/14 05/04/22 History Aspirin EC [Ecotrin Low Dose] 81 mg PO DAILY 11/12/20 05/04/22 History Cholecalciferol [Vitamin D3 (25 50 mcg PO DAILY 11/12/20 05/04/22 History Mcg = 1000 Iu)] Insulin Aspart (For Pump) [NovoLOG 0.01 unit SQ-PUMP CONTINUOUS 11/12/20 05/04/22 History (For Pump)] Levothyroxine Sodium [Synthroid] 100 mcg PO [id number] 11/12/20 05/04/22 History Montelukast [Singulair] 10 mg PO DAILY 11/12/20 05/04/22 History Multivit with Calcium,Iron,Min 1 tab PO DAILY 11/12/20 05/04/22 History [Women's Multivitamin] Cyclobenzaprine [Flexeril] 10 mg PO BID 01/13/21 05/04/22 History Metoclopramide HCl [Reglan] 5 mg PO TID PRN 01/13/21 05/04/22 History Clopidogrel [Plavix] 75 mg PO DAILY 90 Days #90 tab 01/18/21 05/04/22 Rx Potassium Chloride [K-Tab ER] 20 meq PO TID 10/03/21 05/04/22 History Rosuvastatin [Crestor] 20 mg PO DAILY 10/03/21 05/04/22 History traZODone HCL 50 mg PO HS 10/03/21 05/04/22 History LORazepam [Ativan] 0.5 mg PO DAILY@1200 04/28/22 05/04/22 History Midodrine [ProAmatine] 5 mg PO TID 04/28/22 05/04/22 History Spironolactone [Aldactone] 25 mg PO DAILY 04/28/22 05/04/22 History Ubidecarenone [Coenzyme Q10] 200 mg PO DAILY 04/28/22 05/04/22 History busPIRone HCl [Buspar] 10 mg PO BID 04/28/22 05/04/22 History metOLazone 2.5 mg PO DAILY PRN 04/28/22 05/04/22 History Bumetanide [BUMEX] 2 mg PO DAILY 30 Days #30 tab 05/02/22 05/04/22 Rx Allergies Allergy/AdvReac Type Severity Reaction Status Date / Time adhesive Allergy Unknown Verified 05/04/22 15:25 latex Allergy Itching Verified 05/04/22 15:25 amoxicillin [From Augmentin] AdvReac Nausea & Verified 05/04/22 15:25 Vomiting clarithromycin [From Biaxin] AdvReac Nausea & Verified 05/04/22 15:25 Vomiting clavulanic acid AdvReac Nausea & Verified 05/04/22 15:25 [From Augmentin] Vomiting codeine AdvReac Nausea & Verified 05/04/22 15:25 Vomiting nitrofurantoin AdvReac Nausea & Verified 05/04/22 15:25 [From Macrobid] Vomiting Penicillins AdvReac Nausea & Verified 05/04/22 15:25 Vomiting Physical Exam Vitals: Vital Signs Temp Pulse Pulse Resp BP BP Pulse Ox 05/05/22 12:04 66 18 126/70 94 L 05/05/22 10:56 64 18 05/05/22 08:36 98.3 F 64 18 136/72 96 05/05/22 07:17 98 05/05/22 05:00 98.1 F 64 16 127/67 90 L 05/05/22 02:00 64 18 05/04/22 23:39 97.8 F 64 18 118/72 93 L 05/04/22 20:00 97.6 F 63 16 115/68 94 L 05/04/22 18:54 97.9 F 78 18 113/67 93 L 05/04/22 17:49 71 16 103/63 92 L 05/04/22 15:35 77 18 111/69 95 05/04/22 14:00 76 18 128/69 96 05/04/22 13:34 87 05/04/22 13:21 90 05/04/22 13:00 83 18 118/72 98 Intake and Output 05/04/22 05/05/22 05/05/22 22:59 06:59 14:59 Intake Total 70.129 Output Total 100 Balance -100 70.129 Intake: Intake, IV Titration 70.129 Amount Heparin Sod,Pork in 0.45% 70.129 NaCl 25,000 unit In 0.45 % NaCl 1 250ml.bag @ 12 UNITS/KG/HR 8.382 mls/hr IV .Q24H [facility] Rx#: [id number] Output: Urine 100 Other: Voiding Method Bedside Commode Bedside Commode Bedside Commode Weight 69.853 kg Results 05/05/22 08:34 05/05/22 08:34 Cardiac Enzymes 05/04/22 05/04/22 05/04/22 Range/Units 11:40 17:37 21:02 Troponin I 0.286 H* 1.750 H* 2.560 H* (0.000-0.034) ng/mL Coagulation 05/04/22 05/04/22 05/05/22 Range/Units 15:30 21:02 08:34 PT 12.7 H (9.0-12.0) sec APTT 26.7 77.3 H 60.6 H (22.0-30.0) sec CBC 05/04/22 05/05/22 Range/Units 15:45 08:34 WBC 10.1 6.3 (3.8-10.6) k/uL RBC 3.96 3.57 L (3.80-5.40) m/uL Hgb 14.0 12.7 (11.4-16.0) gm/dL Hct 40.8 37.4 (34.0-46.0) % Plt Count 172 161 (150-450) k/uL Comprehensive Metabolic Panel 05/04/22 05/04/22 05/05/22 Range/Units 14:20 21:02 08:34 Sodium 129 L (137-145) mmol/L Potassium 5.9 H 5.2 H 4.1 (3.5-5.1) mmol/L Chloride 92 L (98-107) mmol/L Carbon Dioxide 30 (22-30) mmol/L BUN 34 H (7-17) mg/dL Creatinine 1.28 H (0.52-1.04) mg/dL Glucose 124 H (74-99) mg/dL Calcium 8.6 (8.4-10.2) mg/dL Current Medications Generic Name Dose Route Start Last Admin Trade Name Freq PRN Reason Stop Dose Admin Acetaminophen 500 mg 05/04/22 21:27 05/04/22 21:35 Acetaminophen Tab 500 Mg Tab PO 500 mg Q6HR PRN Administration Fever and/ or Pain Aspirin 81 mg 05/05/22 09:00 05/05/22 08:43 Aspirin 81 Mg PO 81 mg DAILY KATHLEEN Administration Atorvastatin Calcium 40 mg 05/05/22 09:00 05/05/22 08:43 Atorvastatin 40 Mg Tab PO 40 mg DAILY KATHLEEN Administration Bumetanide 2 mg 05/05/22 09:00 05/05/22 08:42 Bumetanide 1 Mg Tab PO 2 mg DAILY KATHLEEN Administration Buspirone HCl 10 mg 05/04/22 21:00 05/05/22 08:42 Buspirone Hcl 10 Mg Tab PO 10 mg BID KATHLEEN Administration Clopidogrel Bisulfate 75 mg 05/05/22 09:00 05/05/22 10:18 Clopidogrel 75 Mg Tab PO 75 mg DAILY KATHLEEN Administration Heparin Sodium (Porcine) 0 unit 05/04/22 14:39 Heparin Sodium 1,000 Un/Ml (10ml Vl) IV PER PROTOCOL PRN Low PTT Protocol Heparin Sodium/Sodium Chloride 250 mls @ 8.382 mls/hr 05/04/22 14:45 05/05/22 00:00 25,000 unit/ Sodium Chloride IV 10 units/kg/hr .Q24H KATHLEEN 6.985 mls/hr Titration Protocol 12 UNITS/KG/HR Insulin Aspart 0 unit 05/04/22 17:50 Insulin Aspart (Novolog) 100 Unit/Ml Vial SQ DAILY PRN Insulin Pump Replacement Levothyroxine Sodium 100 mcg 05/04/22 17:00 05/05/22 08:42 Levothyroxine 100 Mcg Tab PO 100 mcg [id number] KATHLEEN Administration Lorazepam 0.5 mg 05/05/22 12:00 05/05/22 12:32 Lorazepam 0.5 Mg Tab PO 0.5 mg DAILY@1200 KATHLEEN Administration Midodrine 5 mg 05/04/22 22:00 05/05/22 08:42 Midodrine 5 Mg Tab PO 5 mg TID KATHLEEN Administration Miscellaneous Information 1 each 05/04/22 17:50 Insulin Pump Basal Rates 1 Each Misc MISCELLANE Q6HR PRN Blood Sugar - High Protocol Miscellaneous Information 0 unit 05/04/22 21:00 05/05/22 06:20 Insulin Pump Meal Bolus 1 Unit Misc MISCELLANE Not Given ACHS [facility] Protocol Miscellaneous Information 0 unit 05/04/22 17:50 Insulin Pump Correction Bolus 1 Unit Misc MISCELLANE ACHS PRN Blood Sugar - High Protocol Montelukast Sodium 10 mg 05/05/22 09:00 05/05/22 08:43 Montelukast 10 Mg Tab PO 10 mg DAILY KATHLEEN Administration Pantoprazole Sodium 40 mg 05/05/22 07:30 05/05/22 08:43 Pantoprazole 40 Mg Tablet PO 40 mg [id number] KTAHLEEN Administration Trazodone HCl 50 mg 05/04/22 21:00 05/04/22 21:29 Trazodone Hcl 50 Mg Tab PO 50 mg HS KATHLEEN Administration Intake and Output 05/04/22 05/05/22 05/05/22 22:59 06:59 14:59 Intake Total 70.129 Output Total 100 Balance -100 70.129 Intake: Intake, IV Titration 70.129 Amount Heparin Sod,Pork in 0.45% 70.129 NaCl 25,000 unit In 0.45 % NaCl 1 250ml.bag @ 12 UNITS/KG/HR 8.382 mls/hr IV .Q24H [facility] Rx#: [id number] Output: Urine 100 Other: Voiding Method Bedside Commode Bedside Commode Bedside Commode Weight 69.853 kg 05/05/22 08:34 05/05/22 08:34
[2022-05-05 16:36] LABS: Glucose,Whole Blood 152 mg/dL (70-110)
[2022-05-05] MEDS: ACETAMINOPHEN TAB 500 MG TAB PO PRN (16:37)
--- NOTE | 2022-05-05 18:04 | CA ---
Transthoracic Echo Report Name: Kymberly Potts Age: 66 Gender: F : 1955 Exam Date: 05/05/2022 09:22 Exam Location: [place] [facility] Ht (in): 67 Wt (lb): 154 Ordering Physician: Lupe Yee MD Attending/Referring Phys: Pet Care Attendant Jacqui Garcia RDCS Procedure CPT: Indications: chf Cardiac Hx: Technical Quality: Fair Contrast 1: Total Dose (mL): Contrast 2: Total Dose (mL): MEASUREMENTS (Male / Female) Normal Values 2D ECHO LV Diastolic Diameter PLAX 4.4 cm 4.2 - 5.9 / 3.9 - 5.3 cm LV Systolic Diameter PLAX 3.7 cm IVS Diastolic Thickness 1.5 cm 0.6 - 1.0 / 0.6 - 0.9 cm LVPW Diastolic Thickness 1.6 cm 0.6 - 1.0 / 0.6 - 0.9 cm LV Relative Wall Thickness 0.7 RV Internal Dim ED PLAX 5.5 cm LVOT Diameter 1.8 cm LA Volume 39.8 cm??? 18 - 58 / 22 - 52 cm??? M-MODE Aortic Root Diameter MM 3.2 cm LA Systolic Diameter MM 4.4 cm LA Ao Ratio MM 1.4 AV Cusp Separation MM 1.5 cm DOPPLER AV Peak Velocity 146.0 cm/s AV Peak Gradient 8.5 mmHg AV Mean Velocity 100.8 cm/s AV Mean Gradient 4.5 mmHg AV Velocity Time Integral 27.2 cm AI Peak Velocity 339.1 cm/s AI Peak Gradient 46.0 mmHg AI Pressure Half Time 803.4 ms LVOT Peak Velocity 80.6 cm/s LVOT Peak Gradient 2.6 mmHg LVOT Velocity Time Integral 13.3 cm LVOT Stroke Volume 35.6 cm??? LVOT Stroke Volume Index 19.7 ml/m??? LVOT Cardiac Index 1211.3 cm???/min???m??? AV Area Cont Eq vti 1.3 cm??? AV Area Cont Eq pk 1.5 cm??? MV Area PHT 3.6 cm??? Mitral E Point Velocity 63.2 cm/s Mitral A Point Velocity 77.5 cm/s Mitral E to A Ratio 0.8 MV Deceleration Time 209.4 ms MV E' Velocity 2.9 cm/s Mitral E to MV E' Ratio 21.8 TR Peak Velocity 487.2 cm/s TR Peak Gradient 94.9 mmHg Right Ventricular Systolic Press 95.6 mmHg FINDINGS Left Ventricle Moderately increased left ventricular wall thickness. Global left ventricular hypokinesis. Left ventricular ejection fraction is estimated at 25-30 %. Right Ventricle Severe right ventricular dilatation. Severe pulmonary hypertension. Right ventricular systolic pressure estimated at 96 mm hg. Right Atrium Severe right atrial dilatation. Catheter/pacemaker wire in the right atrial cavity. Left Atrium Normal left atrial size. Mitral Valve Structurally normal mitral valve. Mitral valve thickened. Mild mitral annular calcification. Mild mitral regurgitation. Aortic Valve Diffuse moderate thickening (sclerosis) of the aortic valve cusps without reduced excursion. Trace to mild aortic regurgitation. Tricuspid Valve Severe tricuspid regurgitation. Pulmonic Valve Trace pulmonic regurgitation. Pericardium No pericardial effusion. Aorta Normal size aortic root and proximal ascending aorta. CONCLUSIONS Severe LV dysfunction with EF between 25-30% Aortic sclerosis with mild aortic insufficiency Severe pulmonary hypertension Right ventricle dilatation Severe tricuspid regurgitation Previewed by: Dr. Rory Suarez MD (Electronically Signed) Final Date: 05 May 2022 18:03
[2022-05-05 20:15] LABS: Glucose,Whole Blood 227 mg/dL (70-110)
[2022-05-05] MEDS: traZODone HCL 50 MG TAB PO SCH (22:06)
[2022-05-05] MEDS: HEPARIN SOD,PORK IN 0.45% NACL 25,000 UNIT in 0.45% NACL 1 250ML.BAG IV SCH (22:10)
[2022-05-06 02:15] LABS: Glucose,Whole Blood 259 mg/dL (70-110)
[2022-05-06] MEDS: ACETAMINOPHEN TAB 500 MG TAB PO PRN (02:49)
[2022-05-06] MEDS ORDERED: NITROGLYCERIN SL TABS 0.4 MG TAB SUBLINGUAL ONE (03:15)
[2022-05-06] MEDS: ASPIRIN 81 MG PO SCH (03:40)
[2022-05-06] MEDS ORDERED: VERAPAMIL 2.5 MG/ML 2 ML AMP ONE (03:44)
--- NOTE | 2022-05-06 03:57 | P.PN ---
Subjective HISTORY OF PRESENT ILLNESS: This is a 65 year old female with a past medical history significant for coronary artery disease with previous CABG x 4 in 2001 and PCI 01/12 and 03/15, ischemic cardiomyopathy, AICD implantation, hypertension, hyperlipidemia, ischemic cardiomyopathy and diabetes. Patient follows with Dr. Ambriz. She was recently admitted last week secondary to hypokalemia and lab abnormalities and therefore received electrolyte supplementation and workup one week ago. She was discharged for approximately 2 days and then started having some back pain which she admits felt somewhat similar to her prior angina. She then was walking to a gravesite and then had a syncopal episode. Overall she states she has been feeling fairly well other than some fatigue. Denies any of the back pain currently. She does have prior history of syncope and is being worked up for hyponatremia as well as borderline low blood pressures and is seeing Dr. Burns with advanced heart failure from [facility]. Blood work showed hyperkalemia with potassium 6.7, sodium 128, mild acute kidney injury with baseline creatinine approximately 0.7 and up to 1.0-1.2, troponin 0.2, 1.7, 2.5. Blood pressures have been in the 120s to 130s. Previous cardiac cath with Dr. Thompson in December 2020 with PCI of the SVG to PDA. 05/06 Patient seen and examined. Patient started having more back pain radiating up in her jaw and nausea approximately 130 this morning. Repeat EKG similar to prior with nonspecific T-wave inversions. Given ongoing symptoms discussion regarding urgent heart catheterization. Echo showed EF 25-30% with severe pulmonary hypertension and severe tricuspid regurgitation with RVSP 95. REVIEW OF SYSTEMS: At the time of my exam: CONSTITUTIONAL: Denies fever or chills. HEENT: Denies blurred vision, vision changes, or eye pain. Denies hemoptysis CARDIOVASCULAR: Denies chest pain. Denies orthopnea. Denies PND. Denies palpitat ions. Previous back pain may be concerning for angina RESPIRATORY: Denies shortness of breath. GASTROINTESTINAL: Denies abdominal pain. Denies nausea or vomiting. HEMATOLOGIC: Denies bleeding disorders. GENITOURINARY: Denies any blood in urine. SKIN: Denies pruitis. Denies rash. PHYSICAL EXAM: VITAL SIGNS: Reviewed. GENERAL: Well-developed in no acute distress. HEENT: Head is normocephalic. Pupils are equal, round. Sclerae anicteric. Mucous membranes of the mouth are moist. Neck supple. No JVD or thyromegaly LUNGS: Respirations even and unlabored. Lungs diminished to auscultation bilate rally. HEART: Regular rate and rhythm. S1 and S2 heard. ABDOMEN: Soft. Nondistended. Nontender. EXTREMITIES: Normal range of motion. No clubbing or cyanosis. Peripheral pulses intact. Trace lower extremity edema NEUROLOGIC: Awake and alert. Oriented x 3. ASSESSMENT: NSTEMI, concerning for Type 1 etiology with some additional back pain Syncope, rule out cardiogenic source Nausea and vomiting Hyponatremia Hypomagnesemia Coronary artery disease with PCI SVG to right PDA, December 2020 and additional stenting in February 2021, details unknown History of CABG x 2001 Ischemic cardiomyopathy, status post AICD Hypertension Hyperlipidemia Pulmonary fibrosis Diabetes mellitus PLAN: Patient having new onset of back pain concerning for her angina which was similar to prior to her bypass with some nausea. Therefore discussed urgent heart catheterization patient is agreeable. Continued cardiomyopathy with echo showing EF 25-30% as well as severe pulmonary hypertension. Objective - Vital Signs Vital signs: Vital Signs Temp 98.1 F 05/06/22 03:00 Pulse 82 05/06/22 03:00 Resp 18 05/06/22 03:00 BP 132/66 05/06/22 03:00 Pulse Ox 98 05/06/22 03:00 FiO2 Intake & Output 05/05/22 05/05/22 05/06/22 06:59 18:59 06:59 Intake Total 70.129 154.834 Output Total 100 1250 250 Balance -29.871 -1250 -95.166 Intake: Intake, IV Titration 70.129 154.834 Amount Heparin Sod,Pork in 0.45% 70.129 154.834 NaCl 25,000 unit In 0.45 % NaCl 1 250ml.bag @ 12 UNITS/KG/HR 8.382 mls/hr IV .Q24H KATHLEEN Rx#: [id number] Output: Urine 100 1250 250 Other: Voiding Method Bedside Commode Bedside Commode Bedside Commode # Voids 1 - Labs CBC & Chem 7: 05/05/22 08:34 05/05/22 08:34 Labs: Abnormal Lab Results - Last 24 Hours (Table) 05/05/22 05/05/22 05/05/22 Range/Units 08:34 08:34 08:34 RBC 3.57 L (3.80-5.40) m/uL MCV 104.8 H (80.0-100.0) fL MCH 35.5 H (25.0-35.0) pg Lymphocytes # 0.8 L (1.0-4.8) k/uL APTT 60.6 H (22.0-30.0) sec Sodium 129 L (137-145) mmol/L Chloride 92 L (98-107) mmol/L BUN 34 H (7-17) mg/dL Creatinine 1.28 H (0.52-1.04) mg/dL Glucose 124 H (74-99) mg/dL POC Glucose (mg/dL) (70-110) mg/dL Troponin I (0.000-0.034) ng/mL 05/05/22 05/05/22 05/05/22 Range/Units 08:34 11:32 16:35 RBC (3.80-5.40) m/uL MCV (80.0-100.0) fL MCH (25.0-35.0) pg Lymphocytes # (1.0-4.8) k/uL APTT (22.0-30.0) sec Sodium (137-145) mmol/L Chloride (98-107) mmol/L BUN (7-17) mg/dL Creatinine (0.52-1.04) mg/dL Glucose (74-99) mg/dL POC Glucose (mg/dL) 129 H 152 H (70-110) mg/dL Troponin I 2.480 H* (0.000-0.034) ng/mL 05/05/22 05/06/22 Range/Units 20:13 02:13 RBC (3.80-5.40) m/uL MCV (80.0-100.0) fL MCH (25.0-35.0) pg Lymphocytes # (1.0-4.8) k/uL APTT (22.0-30.0) sec Sodium (137-145) mmol/L Chloride (98-107) mmol/L BUN (7-17) mg/dL Creatinine (0.52-1.04) mg/dL Glucose (74-99) mg/dL POC Glucose (mg/dL) 227 H 259 H (70-110) mg/dL Troponin I (0.000-0.034) ng/mL Microbiology - Last 24 Hours (Table) 05/04/22 11:51 Urine Culture - Preliminary Urine,Clean Catch Gram Neg Bacilli 05/04/22 15:45 Blood Culture - Preliminary Blood No Growth after 24 hours 05/04/22 15:30 Blood Culture - Preliminary Blood No Growth after 24 hours
[2022-05-06] MEDS ORDERED: fentaNYL (PF) 50 MCG/ML 2 ML AMP ONE (04:11)
[2022-05-06] MEDS ORDERED: fentaNYL (PF) 50 MCG/ML 2 ML AMP IV ONE (04:13)
[2022-05-06] MEDS ORDERED: MIDAZOLAM 2 MG/2 ML VIAL IV ONE (04:13)
[2022-05-06] MEDS ORDERED: LIDOCAINE 1% INJ 10MG/ML (30 ML VIAL-PF) SQ ONE (04:13)
[2022-05-06] MEDS ORDERED: VERAPAMIL SYRINGE (5 MG/10 ML) INTRAARTER ONE (04:15)
[2022-05-06] MEDS ORDERED: IV FLUID CONTINUATION 1,000 ML IV ONE ×2 (04:19)
[2022-05-06] MEDS ORDERED: HEPARIN SODIUM 1,000 UN/ML (10ML VL) ONE (04:21)
[2022-05-06] MEDS ORDERED: HEPARIN SODIUM 1,000 UN/ML (10ML VL) IV ONE (04:22)
[2022-05-06] MEDS: NITROGLYCERIN 1000MCG/10ML SYRINGE INTRACORON ONE ×2 (04:42→04:44)
[2022-05-06] MEDS ORDERED: IOPAMIDOL-370 125ML BTL INJ ONE (04:50)
[2022-05-06] MEDS ORDERED: RX INFO: IV CONTRAST WAS GIVEN 1 EACH MISC MISCELLANE PRN (05:12)
--- NOTE | 2022-05-06 05:12 | P.CARDCATH ---
Description of Procedure: PROCEDURES PERFORMED: Left heart catheterization, bilateral coronary angiography, SVG to diagonal, SVG to PDA, ANTUNEZ to LAD angiography INDICATION: NSTEMI HISTORY: Patient is pleasant 66-year-old female with history of CAD status post CABG, ischemic cardiomyopathy status post AICD who presented with syncopal episode as well as back pain similar to her prior angina. Therefore decision was made to perform left heart catheterization. She does have a history of SVG to diagonal branch, SVG to PDA and ANTUNEZ to LAD patent. CONSENT:I have discussed the risks, benefits and alternative therapies for the above-mentioned procedure and for both sedation/analgesia as well as necessary blood product administration, if indicated, as they pertain to this patient. The patient has indicated understanding and acceptance of the risks and procedures discussed. PROCEDURE: After the risks, benefits and alternatives of the above mentioned pr ocedure explained in detail with the patient, informed consent was obtained. Patient was taken to the catheterization lab and prepped and draped in usual fashion. 1% lidocaine was used to anesthetize the left radial artery. A 6- Armenian sheath was placed in the left radial artery using modified Seldinger technique. Left coronary angiography was performed with a 5-Armenian JL 4.0 catheter and right coronary angiography was performed with a 5-Armenian JR4 catheter in various views. A 5-Armenian FR4 catheter was inserted into the left ventricle and pressure measurements were obtained. SVG to diagonal branch, SVG to PDA and ANTUNEZ to LAD angiography was performed with the FR4. There was progression of SVG to diagonal branch occluded as well as progression of circumflex however not having any further back or angina pain. SVG to PDA had some proximal 50-60% stenosis and mild improvement with nitro. Given approximately 20 year old grafts and risk of no reflow with manipulation and therefore no further intervention was recommended. The procedure was finished. The left radial sheath was removed and a TR band was placed with hemostasis achieved. The patient tolerated the procedure well. Patient was transported back to the post catheterization holding area in stable condition. Conscious Sedation: Patient was monitored under the direct supervision of vision of myself for conscious sedation using Versed and fentanyl for a total duration of 38 minutes HEMODYNAMICS: Ao: 122/78 LV: 126/2, LVEDP 6mmHg SELECTIVE CORONARY ARTERIOGRAPHY: LEFT MAIN: The left main is a large caliber vessel which bifurcates into the LAD and circumflex. There diffuse proximal to mid 50-60% stenosis. LEFT ANTERIOR DESCENDING CORONARY ARTERY: LAD is a moderate caliber vessel which wraps around to the apex. There is 60-70% proximal LAD stenosis and a mid LAD 100% stenosis. LEFT CIRCUMFLEX CORONARY ARTERY: Left circumflex is a small caliber vessel with 100% proximal stenosis. RIGHT CORONARY ARTERY: The right coronary artery is known to be occluded proximally and therefore no further imaging performed. ANTUNEZ to LAD: patent with mild disease of the mid to distal LAD. SVG to PDA: there is proximal tandem 50-60% stenoses. There is a mid SVG stent which has mild 30% instent stenosis SVG to diagonal: 100% occluded at the proximal stent FINAL IMPRESSION: 1. [place] CAD as described above with 50-60% left main stenosis, 100% proximal circumflex, 100% mid LAD, 100% proximal RCA stenosis 2. Occluded SVG to diagonal, 50-60% stenosis of SVG to PDA and patent ANTUNEZ to LAD 3. Low normal left sided filling pressures PLAN: 1. Aggressive risk factor modification per most recent ACC/AHA guidelines. 2. Patient with likely SVG to diagonal as culprit. Given no ongoing angina symptoms with 100% occlusion at site of previous stenting with additional TAYLOR would recommend medical therapy. SVG to PDA appears to have 50-60% proximal stenosis however higher risk of no reflow with older graft and would treat medically. Additional progression of circumflex disease since 2020 cath however given no active symptoms and TAYLOR, continued medical therapy.
[2022-05-06] MEDS ORDERED: SODIUM CHLORIDE 0.9% 1,000 ML IV SCH (05:15)
[2022-05-06] MEDS: LEVOTHYROXINE 100 MCG TAB PO SCH (06:09)
[2022-05-06] MEDS: PANTOPRAZOLE 40 MG TABLET PO SCH (06:09)
[2022-05-06] MEDS: INSULIN PUMP MEAL BOLUS 1 UNIT MISC MISCELLANE SCH ×4 (07:52→20:30)
[2022-05-06 08:18] LABS: African American GFR (CKD) 74 (>60 ml/min/1.73 sqM); Anion Gap 6 mmol/L; Blood Urea Nitrogen 30 mg/dL (7-17); Calcium 8.1 mg/dL (8.4-10.2); Carbon Dioxide 29 mmol/L (22-30); Chloride 92 mmol/L (98-107); Glucose 226 mg/dL (74-99); Magnesium 1.6 mg/dL (1.6-2.3); Non-African American GFR(CKD) 64 (>60 ml/min/1.73 sqM); Potassium 3.8 mmol/L (3.5-5.1); Sodium 127 mmol/L (137-145)
[2022-05-06] MEDS: MONTELUKAST 10 MG TAB PO SCH (09:05)
[2022-05-06] MEDS: busPIRone HCl 10 MG TAB PO SCH ×2 (09:05→20:20)
[2022-05-06] MEDS: MIDODRINE 5 MG TAB PO SCH ×3 (09:05→20:20)
[2022-05-06] MEDS: ATORVASTATIN 40 MG TAB PO SCH (09:05)
[2022-05-06] MEDS: CLOPIDOGREL 75 MG TAB PO SCH (09:05)
--- NOTE | 2022-05-06 10:11 | P.PN ---
Subjective Patient is seen for follow-up for hyponatremia. She has underlying CHF with ejection fraction 20-25%. Patient has severe pulmonary hypertension and severe tricuspid regurgitation as well. Status post cardiac catheterization this morning. Medical therapy is advised. Patient is maintained on IV fluids. Sodium 127 this morning down from 129 yesterday. Potassium is 3.8. Objective - Vital Signs Vital signs: Vital Signs Temp 97.6 F 05/06/22 07:58 Pulse 98 05/06/22 07:58 Resp 18 05/06/22 07:58 BP 125/76 05/06/22 07:58 Pulse Ox 92 L 05/06/22 09:38 FiO2 Intake & Output 05/05/22 05/06/22 05/06/22 18:59 06:59 18:59 Intake Total 754.834 180 Output Total 1250 550 Balance -1250 204.834 180 Intake: IV 600 Intake, IV Titration 154.834 Amount Heparin Sod,Pork in 0.45% 154.834 NaCl 25,000 unit In 0.45 % NaCl 1 250ml.bag @ 12 UNITS/KG/HR 8.382 mls/hr IV .Q[facility]H [facility] Rx#: [id number] Oral 180 Output: Urine 1250 550 Other: Voiding Method Bedside Commode Bedside Commode # Voids 1 - Exam Vital signs are stable. General: Awake. No acute distress. HEENT: Head exam is unremarkable. LUNGS: Breath sounds decreased. HEART: Rate and Rhythm are regular. ABDOMEN: Soft, no distention. EXTREMITITES: No edema. - Labs CBC & Chem 7: 05/05/22 08:34 05/06/22 07:16 Labs: Abnormal Lab Results - Last 24 Hours (Table) 05/05/22 05/05/22 05/05/22 Range/Units 08:34 11:32 16:35 APTT (22.0-30.0) sec Sodium (137-145) mmol/L Chloride (98-107) mmol/L BUN (7-17) mg/dL Glucose (74-99) mg/dL POC Glucose (mg/dL) 129 H 152 H (70-110) mg/dL Calcium (8.4-10.2) mg/dL Troponin I 2.480 H* (0.000-0.034) ng/mL 05/05/22 05/06/22 05/06/22 Range/Units 20:13 02:13 07:16 APTT (22.0-30.0) sec Sodium 127 L (137-145) mmol/L Chloride 92 L (98-107) mmol/L BUN 30 H (7-17) mg/dL Glucose 226 H (74-99) mg/dL POC Glucose (mg/dL) 227 H 259 H (70-110) mg/dL Calcium 8.1 L (8.4-10.2) mg/dL Troponin I (0.000-0.034) ng/mL 05/06/22 05/06/22 Range/Units 07:16 07:16 APTT 43.9 H (22.0-30.0) sec Sodium (137-145) mmol/L Chloride (98-107) mmol/L BUN (7-17) mg/dL Glucose (74-99) mg/dL POC Glucose (mg/dL) (70-110) mg/dL Calcium (8.4-10.2) mg/dL Troponin I 2.900 H* (0.000-0.034) ng/mL Microbiology - Last 24 Hours (Table) 05/04/22 11:51 Urine Culture - Preliminary Urine,Clean Catch Gram Neg Bacilli 05/04/22 15:45 Blood Culture - Preliminary Blood No Growth after 24 hours 05/04/22 15:30 Blood Culture - Preliminary Blood No Growth after 24 hours Assessment and Plan Assessment: 1. Acute kidney injury mostly prerenal from hemodynamics and diuresis. Also received ibuprofen this admission. Creatinine 0.9 today. Baseline creatinine near 1. 2. Hyperkalemia secondary to potassium supplementation, NSAIDs and acute kidney injury. Improved with medical management. 3. Chronic systolic CHF with ejection fraction of 20-25% with moderate to severe tricuspid regurgitation and severe pulmonary hypertension. 4. Hyponatremia. Slightly hypervolemic. Urine sodium 27 and urine osmolality 325. Sodium is worse with IV hydration. 5. Syncope. 6. Non-ST elevated myocardial infarction with elevated troponins. Currently on IV heparin. Cardiology following. 7. Pyuria. Received Rocephin this admission. Urine culture pending. 8. Diabetes mellitus. Plan: DC IV fluids Repeat sodium this afternoon Resume home dose of diuretics.
[2022-05-06] MEDS ORDERED: BUMETANIDE 1 MG TAB PO SCH (10:15)
[2022-05-06 11:51] LABS: Glucose,Whole Blood 187 mg/dL (70-110)
[2022-05-06] MEDS: LORazepam 0.5 MG TAB PO SCH (12:30)
--- NOTE | 2022-05-06 13:19 | P.PN ---
Progress Note - Text Patient with occluded SVG to diagonal branch as well as progression of circumflex disease and more borderline 50% SVG to RCA on heart catheterization this morning. Her LVEDP was low however at 6 and therefore we will trial IV fluids and monitor response. AICD interrogated with no significant arrhythmias. Check orthostatic vitals. Hold any heart failure regimen given borderline blood pressures and multiple issues with feeling lightheaded. Patient may need Midrin. Further recommendations to follow.
[2022-05-06] MEDS: SODIUM CHLORIDE 0.9% 1,000 ML IV SCH ×2 (13:52→23:31)
[2022-05-06 16:38] LABS: Glucose,Whole Blood 240 mg/dL (70-110)
[2022-05-06] MEDS: traZODone HCL 50 MG TAB PO SCH (20:20)
[2022-05-06 20:28] LABS: Glucose,Whole Blood 127 mg/dL (70-110)
[2022-05-07 02:05] LABS: Glucose,Whole Blood 93 mg/dL (70-110)
[2022-05-07 05:52] LABS: Glucose,Whole Blood 179 mg/dL (70-110)
[2022-05-07] MEDS: PANTOPRAZOLE 40 MG TABLET PO SCH (06:24)
[2022-05-07] MEDS: SODIUM CHLORIDE 0.9% 1,000 ML IV SCH (07:22)
[2022-05-07] MEDS: ATORVASTATIN 40 MG TAB PO SCH (07:27)
[2022-05-07] MEDS: busPIRone HCl 10 MG TAB PO SCH ×2 (07:27→19:58)
[2022-05-07] MEDS: MIDODRINE 5 MG TAB PO SCH ×3 (07:27→19:58)
[2022-05-07] MEDS: ASPIRIN 81 MG PO SCH (07:27)
[2022-05-07] MEDS: CLOPIDOGREL 75 MG TAB PO SCH (07:27)
[2022-05-07] MEDS: MONTELUKAST 10 MG TAB PO SCH (07:27)
[2022-05-07] MEDS: INSULIN PUMP MEAL BOLUS 1 UNIT MISC MISCELLANE SCH ×4 (08:37→20:46)
[2022-05-07 09:17] LABS: African American GFR (CKD) >90 (>60 ml/min/1.73 sqM); Anion Gap 5 mmol/L; Blood Urea Nitrogen 18 mg/dL (7-17); Carbon Dioxide 31 mmol/L (22-30); Chloride 92 mmol/L (98-107); Glucose 236 mg/dL (74-99); Non-African American GFR(CKD) 86 (>60 ml/min/1.73 sqM); Potassium 3.3 mmol/L (3.5-5.1); Sodium 128 mmol/L (137-145)
[2022-05-07 09:27] LABS: Basophils % (A) 0 %; Eosinophils % (A) 1 %; HCT 36.1 % (34.0-46.0); Lymphocytes # (A) 0.5 k/uL (1.0-4.8); Lymphocytes % (A) 9 %; MCH 35.3 pg (25.0-35.0); MCHC 33.3 g/dL (31.0-37.0); MCV 106.1 fL (80.0-100.0); Macrocytosis Moderate; Mean Platelet Volume 8.6; Monocytes # (A) 0.4 k/uL (0-1.0); Monocytes % (A) 6 %; Neutrophils % (A) 82 %; Platelet Count 161 k/uL (150-450); RDW 12.9 % (11.5-15.5)
[2022-05-07] MEDS ORDERED: SODIUM CHLORIDE TAB 1 GM TAB PO STA (10:03)
--- NOTE | 2022-05-07 10:03 | P.PN ---
Subjective Patient is seen for follow-up for hyponatremia. She has underlying CHF with ejection fraction 20-25%. Patient has severe pulmonary hypertension and severe tricuspid regurgitation as well. Status post cardiac catheterization this morning. Medical therapy is advised. Patient is maintained on IV fluids. Bumex was held yesterday and patient was started on IV fluids as her LVEDP pressures were low during cardiac catheterization. Patient did get a dose of Bumex. Sodium is 128 today from 127 yesterday. IV fluids currently on hold. Objective - Vital Signs Vital signs: Vital Signs Temp 98.1 F 05/07/22 07:20 Pulse 79 05/07/22 07:20 Resp 18 05/07/22 07:20 BP 124/62 05/07/22 07:20 Pulse Ox 94 L 05/07/22 07:20 FiO2 Intake & Output 05/06/22 05/07/22 05/07/22 18:59 06:59 18:59 Intake Total 1190 220 Output Total 400 600 Balance 1190 -400 -380 Weight 71.8 kg Intake: Intake, IV Titration 650 100 Amount Sodium Chloride 0.9% 1, 500 100 000 ml @ 100 mls/hr IV . Q10H [facility] Rx#:[id number] Sodium Chloride 0.9% 1, 150 000 ml @ 75 mls/hr IV . [id number] [facility] Rx#:[id number] Oral 540 120 Output: Urine 400 600 Other: Voiding Method Bedside Commode Bedside Commode Bedside Commode # Voids 1 1 # Bowel Movements 0 - Exam Vital signs are stable. General: Awake. No acute distress. HEENT: Head exam is unremarkable. LUNGS: Breath sounds decreased. HEART: Rate and Rhythm are regular. ABDOMEN: Soft, no distention. EXTREMITITES: No edema. - Labs CBC & Chem 7: 05/07/22 08:14 05/07/22 08:51 Labs: Abnormal Lab Results - Last 24 Hours (Table) 05/06/22 05/06/22 05/06/22 Range/Units 11:49 13:57 13:57 RBC (3.80-5.40) m/uL MCV (80.0-100.0) fL MCH (25.0-35.0) pg Lymphocytes # (1.0-4.8) k/uL Sodium 127 L (137-145) mmol/L Potassium (3.5-5.1) mmol/L Chloride (98-107) mmol/L Carbon Dioxide (22-30) mmol/L BUN (7-17) mg/dL Glucose (74-99) mg/dL POC Glucose (mg/dL) 187 H (70-110) mg/dL Calcium (8.4-10.2) mg/dL Troponin I 8.920 H* (0.000-0.034) ng/mL 05/06/22 05/06/22 05/06/22 Range/Units 16:37 17:52 20:27 RBC (3.80-5.40) m/uL MCV (80.0-100.0) fL MCH (25.0-35.0) pg Lymphocytes # (1.0-4.8) k/uL Sodium (137-145) mmol/L Potassium (3.5-5.1) mmol/L Chloride (98-107) mmol/L Carbon Dioxide (22-30) mmol/L BUN (7-17) mg/dL Glucose (74-99) mg/dL POC Glucose (mg/dL) 240 H 127 H (70-110) mg/dL Calcium (8.4-10.2) mg/dL Troponin I 7.130 H* (0.000-0.034) ng/mL 05/07/22 05/07/22 05/07/22 Range/Units 05:50 08:14 08:51 RBC 3.40 L (3.80-5.40) m/uL MCV 106.1 H (80.0-100.0) fL MCH 35.3 H (25.0-35.0) pg Lymphocytes # 0.5 L (1.0-4.8) k/uL Sodium 128 L (137-145) mmol/L Potassium 3.3 L (3.5-5.1) mmol/L Chloride 92 L (98-107) mmol/L Carbon Dioxide 31 H (22-30) mmol/L BUN 18 H (7-17) mg/dL Glucose 236 H (74-99) mg/dL POC Glucose (mg/dL) 179 H (70-110) mg/dL Calcium 8.0 L (8.4-10.2) mg/dL Troponin I (0.000-0.034) ng/mL Microbiology - Last 24 Hours (Table) 05/04/22 15:45 Blood Culture - Preliminary Blood No Growth after 48 hours 05/04/22 15:30 Blood Culture - Preliminary Blood No Growth after 48 hours Assessment and Plan Assessment: 1. Acute kidney injury mostly prerenal from hemodynamics and diuresis. Also received ibuprofen this admission. Creatinine 0.7 today. Baseline creatinine near 1. 2. Hyperkalemia secondary to potassium supplementation, NSAIDs and acute kidney injury. Improved with medical management. 3. Chronic systolic CHF with ejection fraction of 20-25% with moderate to severe tricuspid regurgitation and severe pulmonary hypertension. 4. Hyponatremia. Slightly hypervolemic. Urine sodium 27 and urine osmolality 325. Sodium is worse with IV hydration. Status post 1 dose of Bumex yesterday 5. Syncope. 6. Non-ST elevated myocardial infarction with elevated troponins. Currently on IV heparin. Cardiology following. 7. Pyuria. Received Rocephin this admission. Urine culture pending. 8. Diabetes mellitus. Plan: Recommend to hold IV fluids Sodium chloride tablet 1 g 1 Repeat sodium this afternoon Can wait on resuming diuretics based on low LVEDP pressures on cardiac cath
[2022-05-07] MEDS ORDERED: Potassium Replacement Protocol 1 EACH MISC MISCELLANE PRN (10:24)
[2022-05-07] MEDS: POTASSIUM CHLORIDE ER 20 MEQ TAB.ER PO SCH ×3 (11:33→14:18)
[2022-05-07] MEDS: LORazepam 0.5 MG TAB PO SCH (11:34)
[2022-05-07 11:54] LABS: Glucose,Whole Blood 142 mg/dL (70-110)
[2022-05-07 12:44] LABS: Magnesium 1.6 mg/dL (1.6-2.3)
[2022-05-07] MEDS ORDERED: POTASSIUM BICARBONATE/CIT AC 20 MEQ TABLET.EFF PO ONE (14:15)
--- NOTE | 2022-05-07 15:26 | P.PN ---
Subjective HISTORY OF PRESENT ILLNESS: This is a 65 year old female with a past medical history significant for coronary artery disease with previous CABG x 4 in 2001 and PCI 01/12 and 03/15, ischemic cardiomyopathy, AICD implantation, hypertension, hyperlipidemia, ischemic cardiomyopathy and diabetes. Patient follows with Dr. Ambriz. She was recently admitted last week secondary to hypokalemia and lab abnormalities and therefore received electrolyte supplementation and workup one week ago. She was discharged for approximately 2 days and then started having some back pain which she admits felt somewhat similar to her prior angina. She then was walking to a gravesite and then had a syncopal episode. Overall she states she has been feeling fairly well other than some fatigue. Denies any of the back pain currently. She does have prior history of syncope and is being worked up for hyponatremia as well as borderline low blood pressures and is seeing Dr. Burns with advanced heart failure from [facility]. Blood work showed hyperkalemia with potassium 6.7, sodium 128, mild acute kidney injury with baseline creatinine approximately 0.7 and up to 1.0-1.2, troponin 0.2, 1.7, 2.5. Blood pressures have been in the 120s to 130s. Previous cardiac cath with Dr. Thompson in December 2020 with PCI of the SVG to PDA. 05/06 Patient seen and examined. Patient started having more back pain radiating up in her jaw and nausea approximately 130 this morning. Repeat EKG similar to prior with nonspecific T-wave inversions. Given ongoing symptoms discussion regarding urgent heart catheterization. Echo showed EF 25-30% with severe pulmonary hypertension and severe tricuspid regurgitation with RVSP 95. 05/07 Patient seen and examined. Patient underwent heart catheterization yesterday showing occluded SVG to diagonal branch, moderate 50-60% SVG to RCA stenosis, occluded circumflex. Given patient was not having any angina-type symptoms, her back pain had improved and appeared to have completed her infarct along with kidney injury, no intervention was performed. She was given IVF with LVEDP low normal at 6mmHg. denies any further back pain. She did have some nausea trying to take her potassium pills. PHYSICAL EXAM: VITAL SIGNS: Reviewed. GENERAL: Well-developed in no acute distress. HEENT: Head is normocephalic. Pupils are equal, round. Sclerae anicteric. Mucous membranes of the mouth are moist. Neck supple. No JVD or thyromegaly LUNGS: Respirations even and unlabored. Lungs diminished to auscultation bilaterally. HEART: Regular rate and rhythm. S1 and S2 heard. ABDOMEN: Soft. Nondistended. Nontender. EXTREMITIES: Normal range of motion. No clubbing or cyanosis. Peripheral pulses intact. Trace lower extremity edema NEUROLOGIC: Awake and alert. Oriented x 3. ASSESSMENT: NSTEMI, Type 1 mechanism Syncope, likely related to NE, no arrhythmia on AICD interrogation Nausea and vomiting Hyponatremia Hypomagnesemia Coronary artery disease with PCI SVG to right PDA, December 2020 and additional stenting in February 2021, details unknown History of CABG x 2001 Ischemic cardiomyopathy, status post AICD Hypertension Hyperlipidemia Pulmonary fibrosis Diabetes mellitus Severe pulmonary hypertension Low normal left sided filling pressures on LHC, LVEDP 6, s/p IVF PLAN: Echocardiogram shows left ventricular ejection fraction 25-30% as well as severe pulmonary hypertension with RVSP 96, severe tricuspid regurgitation, mild mitral regurgitation. name presentation appears related to non-STEMI with similar angina as to prior to her bypass. Patient not having any further angina-type symptoms and given kidney injury and contrast/old and no recurrent angina, no PCI was performed. She denies any further angina we will continue to treat medically. She is unable to tolerate much heart failure regimen. Patient should have right heart catheterization to further evaluate degree of pulmonary hypertension and this was scheduled with advanced heart failure at [facility]. Continue current supportive care. Objective - Vital Signs Vital signs: Vital Signs Temp 97.4 F L 05/07/22 11:50 Pulse 73 05/07/22 11:50 Resp 18 05/07/22 11:50 BP 126/73 05/07/22 11:50 Pulse Ox 95 05/07/22 11:50 FiO2 Intake & Output 05/06/22 05/07/22 05/07/22 18:59 06:59 18:59 Intake Total 1190 220 Output Total 400 600 Balance 1190 -400 -380 Weight 71.8 kg Intake: Intake, IV Titration 650 100 Amount Sodium Chloride 0.9% 1, 500 100 000 ml @ 100 mls/hr IV . Q10H [facility] Rx#:[id number] Sodium Chloride 0.9% 1, 150 000 ml @ 75 mls/hr IV . [id number] [facility] Rx#:[id number] Oral 540 120 Output: Urine 400 600 Other: Voiding Method Bedside Commode Bedside Commode Bedside Commode # Voids 1 1 # Bowel Movements 0 - Labs CBC & Chem 7: 05/07/22 08:14 05/07/22 12:08 Labs: Abnormal Lab Results - Last 24 Hours (Table) 05/06/22 05/06/22 05/06/22 Range/Units 16:37 17:52 20:27 RBC (3.80-5.40) m/uL MCV (80.0-100.0) fL MCH (25.0-35.0) pg Lymphocytes # (1.0-4.8) k/uL Sodium (137-145) mmol/L Potassium (3.5-5.1) mmol/L Chloride (98-107) mmol/L Carbon Dioxide (22-30) mmol/L BUN (7-17) mg/dL Glucose (74-99) mg/dL POC Glucose (mg/dL) 240 H 127 H (70-110) mg/dL Calcium (8.4-10.2) mg/dL Troponin I 7.130 H* (0.000-0.034) ng/mL 05/07/22 05/07/22 05/07/22 Range/Units 05:50 08:14 08:51 RBC 3.40 L (3.80-5.40) m/uL MCV 106.1 H (80.0-100.0) fL MCH 35.3 H (25.0-35.0) pg Lymphocytes # 0.5 L (1.0-4.8) k/uL Sodium 128 L (137-145) mmol/L Potassium 3.3 L (3.5-5.1) mmol/L Chloride 92 L (98-107) mmol/L Carbon Dioxide 31 H (22-30) mmol/L BUN 18 H (7-17) mg/dL Glucose 236 H (74-99) mg/dL POC Glucose (mg/dL) 179 H (70-110) mg/dL Calcium 8.0 L (8.4-10.2) mg/dL Troponin I (0.000-0.034) ng/mL 05/07/22 05/07/22 Range/Units 11:42 12:08 RBC (3.80-5.40) m/uL MCV (80.0-100.0) fL MCH (25.0-35.0) pg Lymphocytes # (1.0-4.8) k/uL Sodium 129 L (137-145) mmol/L Potassium (3.5-5.1) mmol/L Chloride (98-107) mmol/L Carbon Dioxide (22-30) mmol/L BUN (7-17) mg/dL Glucose (74-99) mg/dL POC Glucose (mg/dL) 142 H (70-110) mg/dL Calcium (8.4-10.2) mg/dL Troponin I (0.000-0.034) ng/mL Microbiology - Last 24 Hours (Table) 05/04/22 15:45 Blood Culture - Preliminary Blood No Growth after 48 hours 05/04/22 15:30 Blood Culture - Preliminary Blood No Growth after 48 hours
[2022-05-07 16:57] LABS: Glucose,Whole Blood 119 mg/dL (70-110)
[2022-05-07] MEDS: traZODone HCL 50 MG TAB PO SCH (19:58)
[2022-05-07 20:05] LABS: Glucose,Whole Blood 131 mg/dL (70-110)
[2022-05-07 21:11] VITALS: RESP 18
--- NOTE | 2022-05-08 00:18 | P.PN ---
Subjective Progress Note Date: 05/05/22 Patient is a 66-year-old male with a known history of chronic CHF, history of AICD placement, coronary artery disease status post CABG and stent placement, diabetes type 2 on insulin pump, coronary fibrosis, Maksim's disease, anxiety/depression prior history of smoking was brought to the hospital by her h band due to complaints of syncopal episode. Patient states that she felt very weak and had a syncopal episode. Her for her and did not have any fall. Patient lost consciousness for about 2-3 minutes as per . She has been having generalized weakness, fatigue and mild shortness of breath. Patient was recently admitted to the hospital due to severe hyponatremia and hypokalemia. She received dose of Samsca and was seen by nephrology. Balmex dose was reduced to daily and metolazone when necessary. Patient is also on Aldactone and potassium chloride 20 mg 3 times a day. Otherwise patient denied any cough or sputum production. No fever no chills. No abscess or vomiting. No diarrhea. No abdominal pain. On admission chest x-ray showed worsening bibasilar infiltrates. Correlate for pneumonia. Cardiomegaly EKG showed sinus rhythm with possible left atrial enlargement. , Laboratory data showed no recent 9.1 hemoglobin 14.7, MCV 105.5 and platelets 205 Sodium 128 potassium 6.7, chloride 90 bicarb is 20 BUN 26 and creatinine 1.06 Creatinine during recent admission is 0.7 Blood sugar 254 AST 63 ALT 40 alk phos 111 proBNP 8180, troponin 0.286, 1.750 Analysis showed turbid 2+ proteins nitrite negative large blisters with elevated RBCs and WBCs. 05/05/2022 Patient is currently sitting in the bed. Denies any complaints of chest pain or shortness of breath. No headache or dizziness. Potassium level is normalized. Cough is productive. No fever no chills. Troponin level went up to 2.48. Patient was seen by cardiology and is considering cardiac catheterization tomorrow. Laboratory test showed WBC 6.3 hemoglobin 12.7 and platelets 161 Sodium 129 potassium 4.1 chloride 92 bicarb is 30 BUN 34 and creatinine 1.28. Current medications reviewed. Objective - Vital Signs Vital signs: Vital Signs Temp 98.3 F 05/05/22 08:36 Pulse 64 05/05/22 08:36 Resp 18 05/05/22 08:36 BP 136/72 05/05/22 08:36 Pulse Ox 96 05/05/22 08:36 FiO2 Intake & Output 05/04/22 05/05/22 05/05/22 18:59 06:59 18:59 Intake Total 70.129 Output Total 100 Balance -29.871 Weight 69.853 kg Intake: Intake, IV Titration 70.129 Amount Heparin Sod,Pork in 0.45% 70.129 NaCl 25,000 unit In 0.45 % NaCl 1 250ml.bag @ 12 UNITS/KG/HR 8.382 mls/hr IV .Q24H [facility] Rx#: [id number] Output: Urine 100 Other: Voiding Method Bedside Commode - Exam PHYSICAL EXAMINATION: Patient is lying in the bed comfortably, no acute distress, awake alert and oriented.. HEENT: Normocephalic. Neck is supple. Pupils reactive. Nostrils clear. Oral cavity is moist. Neck reveals no JVD, carotid bruits, or thyromegaly. CHEST EXAMINATION: Trachea is central. Symmetrical expansion. Left basilar crackles. No wheezing or rhonchi.. CARDIAC: Normal S1, S2 with no gallops. No murmurs ABDOMEN: Soft. Bowel sounds normal. No organomegaly. No abdominal bruits. Extremities: reveal no edema. No clubbing or cyanosis Neurologically awake, alert, oriented x3 with well-coordinated movements. No focal deficits noted Skin: No rash or skin lesions. Psychiatric: Coperative. Nonsuicidal Musculoskeletal: No joint swelling or deformity. Normal range of motion. - Labs CBC & Chem 7: 05/07/22 08:14 05/07/22 12:08 Labs: Abnormal Lab Results - Last 24 Hours (Table) 05/04/22 05/04/22 05/04/22 Range/Units 11:40 11:51 11:51 RBC (3.80-5.40) m/uL MCV 105.5 H (80.0-100.0) fL MCH 36.0 H (25.0-35.0) pg Neutrophils # 8.1 H (1.3-7.7) k/uL Lymphocytes # 0.5 L (1.0-4.8) k/uL PT (9.0-12.0) sec INR (<1.2) APTT (22.0-30.0) sec Sodium 128 L (137-145) mmol/L Potassium 6.7 H* (3.5-5.1) mmol/L Chloride 90 L (98-107) mmol/L Carbon Dioxide 20 L (22-30) mmol/L BUN 26 H (7-17) mg/dL Creatinine 1.06 H (0.52-1.04) mg/dL Glucose 254 H (74-99) mg/dL POC Glucose (mg/dL) (70-110) mg/dL Total Bilirubin 1.7 H (0.2-1.3) mg/dL AST 63 H (14-36) U/L ALT 40 H (4-34) U/L Troponin I 0.286 H* (0.000-0.034) ng/mL Procalcitonin (0.02-0.09) ng/mL Urine Appearance (Clear) Urine Protein (Negative) Urine Blood (Negative) Urine Bilirubin (Negative) Ur Leukocyte Esterase (Negative) Urine RBC (0-5) /hpf Urine WBC (0-5) /hpf Urine WBC Clumps (None) /hpf Urine Bacteria (None) /hpf Hyaline Casts (0-2) /lpf Urine Mucus (None) /hpf Ur Random Sodium (40-220) mmol/L 05/04/22 05/04/22 05/04/22 Range/Units 11:51 11:51 14:20 RBC (3.80-5.40) m/uL MCV (80.0-100.0) fL MCH (25.0-35.0) pg Neutrophils # (1.3-7.7) k/uL Lymphocytes # (1.0-4.8) k/uL PT (9.0-12.0) sec INR (<1.2) APTT (22.0-30.0) sec Sodium (137-145) mmol/L Potassium 5.9 H (3.5-5.1) mmol/L Chloride (98-107) mmol/L Carbon Dioxide (22-30) mmol/L BUN (7-17) mg/dL Creatinine (0.52-1.04) mg/dL Glucose (74-99) mg/dL POC Glucose (mg/dL) (70-110) mg/dL Total Bilirubin (0.2-1.3) mg/dL AST (14-36) U/L ALT (4-34) U/L Troponin I (0.000-0.034) ng/mL Procalcitonin (0.02-0.09) ng/mL Urine Appearance Turbid H (Clear) Urine Protein 2+ H (Negative) Urine Blood Small H (Negative) Urine Bilirubin 1+ H (Negative) Ur Leukocyte Esterase Large H (Negative) Urine RBC 12 H (0-5) /hpf Urine WBC >182 H (0-5) /hpf Urine WBC Clumps Many H (None) /hpf Urine Bacteria Rare H (None) /hpf Hyaline Casts 27 H (0-2) /lpf Urine Mucus Rare H (None) /hpf Ur Random Sodium 27 L (40-220) mmol/L 05/04/22 05/04/22 05/04/22 Range/Units 15:30 15:34 15:45 RBC (3.80-5.40) m/uL MCV 103.0 H (80.0-100.0) fL MCH 35.3 H (25.0-35.0) pg Neutrophils # 8.9 H (1.3-7.7) k/uL Lymphocytes # 0.5 L (1.0-4.8) k/uL PT 12.7 H (9.0-12.0) sec INR 1.2 H (<1.2) APTT (22.0-30.0) sec Sodium (137-145) mmol/L Potassium (3.5-5.1) mmol/L Chloride (98-107) mmol/L Carbon Dioxide (22-30) mmol/L BUN (7-17) mg/dL Creatinine (0.52-1.04) mg/dL Glucose (74-99) mg/dL POC Glucose (mg/dL) (70-110) mg/dL Total Bilirubin (0.2-1.3) mg/dL AST (14-36) U/L ALT (4-34) U/L Troponin I (0.000-0.034) ng/mL Procalcitonin 0.25 H (0.02-0.09) ng/mL Urine Appearance (Clear) Urine Protein (Negative) Urine Blood (Negative) Urine Bilirubin (Negative) Ur Leukocyte Esterase (Negative) Urine RBC (0-5) /hpf Urine WBC (0-5) /hpf Urine WBC Clumps (None) /hpf Urine Bacteria (None) /hpf Hyaline Casts (0-2) /lpf Urine Mucus (None) /hpf Ur Random Sodium (40-220) mmol/L 05/04/22 05/04/22 05/04/22 Range/Units 17:37 17:40 20:09 RBC (3.80-5.40) m/uL MCV (80.0-100.0) fL MCH (25.0-35.0) pg Neutrophils # (1.3-7.7) k/uL Lymphocytes # (1.0-4.8) k/uL PT (9.0-12.0) sec INR (<1.2) APTT (22.0-30.0) sec Sodium (137-145) mmol/L Potassium (3.5-5.1) mmol/L Chloride (98-107) mmol/L Carbon Dioxide (22-30) mmol/L BUN (7-17) mg/dL Creatinine (0.52-1.04) mg/dL Glucose (74-99) mg/dL POC Glucose (mg/dL) 191 H 472 H (70-110) mg/dL Total Bilirubin (0.2-1.3) mg/dL AST (14-36) U/L ALT (4-34) U/L Troponin I 1.750 H* (0.000-0.034) ng/mL Procalcitonin (0.02-0.09) ng/mL Urine Appearance (Clear) Urine Protein (Negative) Urine Blood (Negative) Urine Bilirubin (Negative) Ur Leukocyte Esterase (Negative) Urine RBC (0-5) /hpf Urine WBC (0-5) /hpf Urine WBC Clumps (None) /hpf Urine Bacteria (None) /hpf Hyaline Casts (0-2) /lpf Urine Mucus (None) /hpf Ur Random Sodium (40-220) mmol/L 05/04/22 05/04/22 05/04/22 Range/Units 21:02 21:02 21:02 RBC (3.80-5.40) m/uL MCV (80.0-100.0) fL MCH (25.0-35.0) pg Neutrophils # (1.3-7.7) k/uL Lymphocytes # (1.0-4.8) k/uL PT (9.0-12.0) sec INR (<1.2) APTT 77.3 H (22.0-30.0) sec Sodium (137-145) mmol/L Potassium 5.2 H (3.5-5.1) mmol/L Chloride (98-107) mmol/L Carbon Dioxide (22-30) mmol/L BUN (7-17) mg/dL Creatinine (0.52-1.04) mg/dL Glucose (74-99) mg/dL POC Glucose (mg/dL) (70-110) mg/dL Total Bilirubin (0.2-1.3) mg/dL AST (14-36) U/L ALT (4-34) U/L Troponin I 2.560 H* (0.000-0.034) ng/mL Procalcitonin (0.02-0.09) ng/mL Urine Appearance (Clear) Urine Protein (Negative) Urine Blood (Negative) Urine Bilirubin (Negative) Ur Leukocyte Esterase (Negative) Urine RBC (0-5) /hpf Urine WBC (0-5) /hpf Urine WBC Clumps (None) /hpf Urine Bacteria (None) /hpf Hyaline Casts (0-2) /lpf Urine Mucus (None) /hpf Ur Random Sodium (40-220) mmol/L 05/04/22 05/05/22 05/05/22 Range/Units 21:10 02:02 08:34 RBC 3.57 L (3.80-5.40) m/uL MCV 104.8 H (80.0-100.0) fL MCH 35.5 H (25.0-35.0) pg Neutrophils # (1.3-7.7) k/uL Lymphocytes # 0.8 L (1.0-4.8) k/uL PT (9.0-12.0) sec INR (<1.2) APTT (22.0-30.0) sec Sodium (137-145) mmol/L Potassium (3.5-5.1) mmol/L Chloride (98-107) mmol/L Carbon Dioxide (22-30) mmol/L BUN (7-17) mg/dL Creatinine (0.52-1.04) mg/dL Glucose (74-99) mg/dL POC Glucose (mg/dL) 337 H 289 H (70-110) mg/dL Total Bilirubin (0.2-1.3) mg/dL AST (14-36) U/L ALT (4-34) U/L Troponin I (0.000-0.034) ng/mL Procalcitonin (0.02-0.09) ng/mL Urine Appearance (Clear) Urine Protein (Negative) Urine Blood (Negative) Urine Bilirubin (Negative) Ur Leukocyte Esterase (Negative) Urine RBC (0-5) /hpf Urine WBC (0-5) /hpf Urine WBC Clumps (None) /hpf Urine Bacteria (None) /hpf Hyaline Casts (0-2) /lpf Urine Mucus (None) /hpf Ur Random Sodium (40-220) mmol/L 05/05/22 05/05/22 Range/Units 08:34 08:34 RBC (3.80-5.40) m/uL MCV (80.0-100.0) fL MCH (25.0-35.0) pg Neutrophils # (1.3-7.7) k/uL Lymphocytes # (1.0-4.8) k/uL PT (9.0-12.0) sec INR (<1.2) APTT 60.6 H (22.0-30.0) sec Sodium 129 L (137-145) mmol/L Potassium (3.5-5.1) mmol/L Chloride 92 L (98-107) mmol/L Carbon Dioxide (22-30) mmol/L BUN 34 H (7-17) mg/dL Creatinine 1.28 H (0.52-1.04) mg/dL Glucose 124 H (74-99) mg/dL POC Glucose (mg/dL) (70-110) mg/dL Total Bilirubin (0.2-1.3) mg/dL AST (14-36) U/L ALT (4-34) U/L Troponin I (0.000-0.034) ng/mL Procalcitonin (0.02-0.09) ng/mL Urine Appearance (Clear) Urine Protein (Negative) Urine Blood (Negative) Urine Bilirubin (Negative) Ur Leukocyte Esterase (Negative) Urine RBC (0-5) /hpf Urine WBC (0-5) /hpf Urine WBC Clumps (None) /hpf Urine Bacteria (None) /hpf Hyaline Casts (0-2) /lpf Urine Mucus (None) /hpf Ur Random Sodium (40-220) mmol/L Microbiology - Last 24 Hours (Table) 05/04/22 11:51 Urine Culture - Preliminary Urine,Clean Catch Assessment and Plan Assessment: Generalized weakness and fatigue Acute kidney injury likely prerenal due to diuretic use and volume depletion Hyperkalemia secondary to acute kidney injury and potassium supplementation. Elevated troponin level possible non-ST elevated PA Chronic CHF with systolic dysfunction ejection fraction 20-25% .s/p AICD placement Moderate to severe TR Severe pulmonary hypertension Diabetes type 2 insulin-dependent on insulin pump. Anxiety/depression Prior history of smoking DVT prophylaxis Plan: Patient will be continued telemetry monitoring.Continue with heparin drip. Cardiology is planning for catheterization. Monitor renal function closely. Patient was given insulin/dextrose, sodium bicarbonate in the ER. Potassium level is normalized. Patient will be current on Bumex 2 mg daily and spironolactone. Cardiology and nephrology is on board. Continue to follow closely. Time with Patient: Greater than 30
--- NOTE | 2022-05-08 00:24 | P.PN ---
Subjective Progress Note Date: 05/06/22 Patient is a 66-year-old male with a known history of chronic CHF, history of AICD placement, coronary artery disease status post CABG and stent placement, diabetes type 2 on insulin pump, coronary fibrosis, Maksim's disease, anxiety/depression prior history of smoking was brought to the hospital by her h band due to complaints of syncopal episode. Patient states that she felt very weak and had a syncopal episode. Her for her and did not have any fall. Patient lost consciousness for about 2-3 minutes as per . She has been having generalized weakness, fatigue and mild shortness of breath. Patient was recently admitted to the hospital due to severe hyponatremia and hypokalemia. She received dose of Samsca and was seen by nephrology. Balmex dose was reduced to daily and metolazone when necessary. Patient is also on Aldactone and potassium chloride 20 mg 3 times a day. Otherwise patient denied any cough or sputum production. No fever no chills. No abscess or vomiting. No diarrhea. No abdominal pain. On admission chest x-ray showed worsening bibasilar infiltrates. Correlate for pneumonia. Cardiomegaly EKG showed sinus rhythm with possible left atrial enlargement. , Laboratory data showed no recent 9.1 hemoglobin 14.7, MCV 105.5 and platelets 205 Sodium 128 potassium 6.7, chloride 90 bicarb is 20 BUN 26 and creatinine 1.06 Creatinine during recent admission is 0.7 Blood sugar 254 AST 63 ALT 40 alk phos 111 proBNP 8180, troponin 0.286, 1.750 Analysis showed turbid 2+ proteins nitrite negative large blisters with elevated RBCs and WBCs. 05/05/2022 Patient is currently sitting in the bed. Denies any complaints of chest pain or shortness of breath. No headache or dizziness. Potassium level is normalized. Cough is productive. No fever no chills. Troponin level went up to 2.48. Patient was seen by cardiology and is considering cardiac catheterization tomorrow. Laboratory test showed WBC 6.3 hemoglobin 12.7 and platelets 161 Sodium 129 potassium 4.1 chloride 92 bicarb is 30 BUN 34 and creatinine 1.28. 05/06/2022 Patient is resting in the bed. Awake alert and oriented x3. S/p cardiac catheterization showed occluded SVG to diagonal branch as well as progression of circumflex disease. Patient is LV EDP was low and was started on IV hydration w ith normal saline as per cardiology recommendations. AICD interrogated which showed no arrhythmia noted. Cardiology is following. Otherwise patient denies any dizziness or lightheadedness. No chest pain or shortness of breath. No cough or sputum production. Laboratory test showed sodium 127 potassium 3.8 chloride 92 bicarb is 29 BUN 13 creatinine 0.94 and blood sugar is 226 and TSH level is 0.524. Current medications reviewed. Objective - Vital Signs Vital signs: Vital Signs Temp 97.8 F 05/06/22 12:00 Pulse 71 05/06/22 15:16 Resp 18 05/06/22 15:16 BP 134/70 05/06/22 15:16 Pulse Ox 91 L 05/06/22 15:16 FiO2 Intake & Output 05/06/22 05/06/22 05/07/22 06:59 18:59 06:59 Intake Total 599.005 4238 Output Total 550 Balance 126.659 7495 Intake: IV 600 Intake, IV Titration 154.834 650 Amount Heparin Sod,Pork in 0.45% 154.834 NaCl 25,000 unit In 0.45 % NaCl 1 250ml.bag @ 12 UNITS/KG/HR 8.382 mls/hr IV .Q24H [facility] Rx#: [id number] Sodium Chloride 0.9% 1, 500 000 ml @ 100 mls/hr IV . Q10H [facility] Rx#:[id number] Sodium Chloride 0.9% 1, 150 000 ml @ 75 mls/hr IV . [id number] [facility] Rx#:[id number] Oral 540 Output: Urine 550 Other: Voiding Method Bedside Commode Bedside Commode # Bowel Movements 0 - Exam PHYSICAL EXAMINATION: Patient is lying in the bed comfortably, no acute distress, awake alert and oriented.. HEENT: Normocephalic. Neck is supple. Pupils reactive. Nostrils clear. Oral cavity is moist. Neck reveals no JVD, carotid bruits, or thyromegaly. CHEST EXAMINATION: Trachea is central. Symmetrical expansion. Left basilar crackles. No wheezing or rhonchi.. CARDIAC: Normal S1, S2 with no gallops. No murmurs ABDOMEN: Soft. Bowel sounds normal. No organomegaly. No abdominal bruits. Extremities: reveal no edema. No clubbing or cyanosis Neurologically awake, alert, oriented x3 with well-coordinated movements. No focal deficits noted Skin: No rash or skin lesions. Psychiatric: Coperative. Nonsuicidal Musculoskeletal: No joint swelling or deformity. Normal range of motion. - Labs CBC & Chem 7: 05/07/22 08:14 05/07/22 12:08 Labs: Abnormal Lab Results - Last 24 Hours (Table) 05/06/22 05/06/22 05/06/22 Range/Units 02:13 07:16 07:16 APTT 43.9 H (22.0-30.0) sec Sodium 127 L (137-145) mmol/L Chloride 92 L (98-107) mmol/L BUN 30 H (7-17) mg/dL Glucose 226 H (74-99) mg/dL POC Glucose (mg/dL) 259 H (70-110) mg/dL Calcium 8.1 L (8.4-10.2) mg/dL Troponin I (0.000-0.034) ng/mL 05/06/22 05/06/22 05/06/22 Range/Units 07:16 11:49 13:57 APTT (22.0-30.0) sec Sodium 127 L (137-145) mmol/L Chloride (98-107) mmol/L BUN (7-17) mg/dL Glucose (74-99) mg/dL POC Glucose (mg/dL) 187 H (70-110) mg/dL Calcium (8.4-10.2) mg/dL Troponin I 2.900 H* (0.000-0.034) ng/mL 05/06/22 05/06/22 05/06/22 Range/Units 13:57 16:37 17:52 APTT (22.0-30.0) sec Sodium (137-145) mmol/L Chloride (98-107) mmol/L BUN (7-17) mg/dL Glucose (74-99) mg/dL POC Glucose (mg/dL) 240 H (70-110) mg/dL Calcium (8.4-10.2) mg/dL Troponin I 8.920 H* 7.130 H* (0.000-0.034) ng/mL 05/06/22 Range/Units 20:27 APTT (22.0-30.0) sec Sodium (137-145) mmol/L Chloride (98-107) mmol/L BUN (7-17) mg/dL Glucose (74-99) mg/dL POC Glucose (mg/dL) 127 H (70-110) mg/dL Calcium (8.4-10.2) mg/dL Troponin I (0.000-0.034) ng/mL Microbiology - Last 24 Hours (Table) 05/04/22 15:45 Blood Culture - Preliminary Blood No Growth after 48 hours 05/04/22 15:30 Blood Culture - Preliminary Blood No Growth after 48 hours 05/04/22 11:51 Urine Culture - Preliminary Urine,Clean Catch Gram Neg Bacilli Assessment and Plan Assessment: Generalized weakness and fatigue Acute kidney injury likely prerenal due to diuretic use and volume depletion Hyperkalemia secondary to acute kidney injury and potassium supplementation. Elevated troponin level possible non-ST elevated MS Chronic CHF with systolic dysfunction ejection fraction 20-25% .s/p AICD placement Moderate to severe TR Severe pulmonary hypertension Diabetes type 2 insulin-dependent on insulin pump. Anxiety/depression Prior history of smoking DVT prophylaxis Plan: Patient will be continued telemetry monitoring.Continue with heparin drip. Cardiology is planning for catheterization. Monitor renal function closely. Patient was given insulin/dextrose, sodium bicarbonate in the ER. Potassium level is normalized. Patient will be current on Bumex 2 mg daily and spironolactone. Cardiology and nephrology is on board. Continue to follow closely. Time with Patient: Greater than 30
--- NOTE | 2022-05-08 00:30 | P.PN ---
Subjective Progress Note Date: 05/07/22 Patient is a 66-year-old male with a known history of chronic CHF, history of AICD placement, coronary artery disease status post CABG and stent placement, diabetes type 2 on insulin pump, coronary fibrosis, Maksim's disease, anxiety/depression prior history of smoking was brought to the hospital by her h band due to complaints of syncopal episode. Patient states that she felt very weak and had a syncopal episode. Her for her and did not have any fall. Patient lost consciousness for about 2-3 minutes as per . She has been having generalized weakness, fatigue and mild shortness of breath. Patient was recently admitted to the hospital due to severe hyponatremia and hypokalemia. She received dose of Samsca and was seen by nephrology. Balmex dose was reduced to daily and metolazone when necessary. Patient is also on Aldactone and potassium chloride 20 mg 3 times a day. Otherwise patient denied any cough or sputum production. No fever no chills. No abscess or vomiting. No diarrhea. No abdominal pain. On admission chest x-ray showed worsening bibasilar infiltrates. Correlate for pneumonia. Cardiomegaly EKG showed sinus rhythm with possible left atrial enlargement. , Laboratory data showed no recent 9.1 hemoglobin 14.7, MCV 105.5 and platelets 205 Sodium 128 potassium 6.7, chloride 90 bicarb is 20 BUN 26 and creatinine 1.06 Creatinine during recent admission is 0.7 Blood sugar 254 AST 63 ALT 40 alk phos 111 proBNP 8180, troponin 0.286, 1.750 Analysis showed turbid 2+ proteins nitrite negative large blisters with elevated RBCs and WBCs. 05/05/2022 Patient is currently sitting in the bed. Denies any complaints of chest pain or shortness of breath. No headache or dizziness. Potassium level is normalized. Cough is productive. No fever no chills. Troponin level went up to 2.48. Patient was seen by cardiology and is considering cardiac catheterization tomorrow. Laboratory test showed WBC 6.3 hemoglobin 12.7 and platelets 161 Sodium 129 potassium 4.1 chloride 92 bicarb is 30 BUN 34 and creatinine 1.28. 05/06/2022 Patient is resting in the bed. Awake alert and oriented x3. S/p cardiac catheterization showed occluded SVG to diagonal branch as well as progression of circumflex disease. Patient is LV EDP was low and was started on IV hydration w ith normal saline as per cardiology recommendations. AICD interrogated which showed no arrhythmia noted. Cardiology is following. Otherwise patient denies any dizziness or lightheadedness. No chest pain or shortness of breath. No cough or sputum production. Laboratory test showed sodium 127 potassium 3.8 chloride 92 bicarb is 29 BUN 13 creatinine 0.94 and blood sugar is 226 and TSH level is 0.524. 05/07/2022 Patient is currently lying in bed. Awake alert and oriented x3. No complaints of chest pain or back pain. No nausea vomiting abdominal pain or diarrhea. Patient is status post cardiac catheter yesterday and no PCI was performed. Continue with medical management. Patient was continued on IV hydration. Renal function is normalized now. Laboratory data showed sodium 128 potassium 3.3 chloride 92 bicarb is 31 BUN 18 and creatinine 0.74. Calcium 8.0. Magnesium 1.6 which is being replaced. Nephrology and cardiology is on board. IV fluids have been discontinued today. Current medications reviewed. Objective - Vital Signs Vital signs: Vital Signs Temp 97.4 F L 05/07/22 11:50 Pulse 73 05/07/22 11:50 Resp 18 05/07/22 11:50 BP 126/73 05/07/22 11:50 Pulse Ox 95 05/07/22 11:50 FiO2 Intake & Output 05/06/22 05/07/22 05/07/22 18:59 06:59 18:59 Intake Total 1190 220 Output Total 400 600 Balance 1190 -400 -380 Weight 71.8 kg Intake: Intake, IV Titration 650 100 Amount Sodium Chloride 0.9% 1, 500 100 000 ml @ 100 mls/hr IV . Q10H [facility] Rx#:[id number] Sodium Chloride 0.9% 1, 150 000 ml @ 75 mls/hr IV . [id number] [facility] Rx#:[id number] Oral 540 120 Output: Urine 400 600 Other: Voiding Method Bedside Commode Bedside Commode Bedside Commode # Voids 1 1 # Bowel Movements 0 - Exam PHYSICAL EXAMINATION: Patient is lying in the bed comfortably, no acute distress, awake alert and oriented.. HEENT: Normocephalic. Neck is supple. Pupils reactive. Nostrils clear. Oral cavity is moist. Neck reveals no JVD, carotid bruits, or thyromegaly. CHEST EXAMINATION: Trachea is central. Symmetrical expansion. Left basilar crackles. No wheezing or rhonchi.. CARDIAC: Normal S1, S2 with no gallops. No murmurs ABDOMEN: Soft. Bowel sounds normal. No organomegaly. No abdominal bruits. Extremities: reveal no edema. No clubbing or cyanosis Neurologically awake, alert, oriented x3 with well-coordinated movements. No focal deficits noted Skin: No rash or skin lesions. Psychiatric: Coperative. Nonsuicidal Musculoskeletal: No joint swelling or deformity. Normal range of motion. - Labs CBC & Chem 7: 05/07/22 08:14 05/07/22 12:08 Labs: Abnormal Lab Results - Last 24 Hours (Table) 05/06/22 05/06/22 05/07/22 Range/Units 17:52 20:27 05:50 RBC (3.80-5.40) m/uL MCV (80.0-100.0) fL MCH (25.0-35.0) pg Lymphocytes # (1.0-4.8) k/uL Sodium (137-145) mmol/L Potassium (3.5-5.1) mmol/L Chloride (98-107) mmol/L Carbon Dioxide (22-30) mmol/L BUN (7-17) mg/dL Glucose (74-99) mg/dL POC Glucose (mg/dL) 127 H 179 H (70-110) mg/dL Calcium (8.4-10.2) mg/dL Troponin I 7.130 H* (0.000-0.034) ng/mL 05/07/22 05/07/22 05/07/22 Range/Units 08:14 08:51 11:42 RBC 3.40 L (3.80-5.40) m/uL MCV 106.1 H (80.0-100.0) fL MCH 35.3 H (25.0-35.0) pg Lymphocytes # 0.5 L (1.0-4.8) k/uL Sodium 128 L (137-145) mmol/L Potassium 3.3 L (3.5-5.1) mmol/L Chloride 92 L (98-107) mmol/L Carbon Dioxide 31 H (22-30) mmol/L BUN 18 H (7-17) mg/dL Glucose 236 H (74-99) mg/dL POC Glucose (mg/dL) 142 H (70-110) mg/dL Calcium 8.0 L (8.4-10.2) mg/dL Troponin I (0.000-0.034) ng/mL 05/07/22 Range/Units 12:08 RBC (3.80-5.40) m/uL MCV (80.0-100.0) fL MCH (25.0-35.0) pg Lymphocytes # (1.0-4.8) k/uL Sodium 129 L (137-145) mmol/L Potassium (3.5-5.1) mmol/L Chloride (98-107) mmol/L Carbon Dioxide (22-30) mmol/L BUN (7-17) mg/dL Glucose (74-99) mg/dL POC Glucose (mg/dL) (70-110) mg/dL Calcium (8.4-10.2) mg/dL Troponin I (0.000-0.034) ng/mL Microbiology - Last 24 Hours (Table) 05/04/22 15:45 Blood Culture - Preliminary Blood No Growth after 48 hours 05/04/22 15:30 Blood Culture - Preliminary Blood No Growth after 48 hours Assessment and Plan Assessment: Elevated troponin level possible non-ST elevated AK Generalized weakness and fatigue Acute kidney injury likely prerenal due to diuretic use and volume depletion Hyperkalemia secondary to acute kidney injury and potassium supplementation. resolved Chronic CHF with systolic dysfunction ejection fraction 20-25% .s/p AICD placement Moderate to severe TR Severe pulmonary hypertension Diabetes type 2 insulin-dependent on insulin pump. Anxiety/depression Prior history of smoking DVT prophylaxis Plan: Patient will be continued telemetry monitoring. DCed heparin drip. S/p cardiac catheterization showed occluded SVG to diagonal branch as well as progression of circumflex disease. Patient is LV EDP was low and was started on IV hydration with normal saline as per cardiology recommendations. AICD interrogated which showed no arrhythmia noted.. Patient was given insulin/dextrose, sodium bicarbonate in the ER. Potassium level is normalized. Patient will be current on Bumex 2 mg daily and spironolactone. Cardiology and nephrology is on board. Continue to follow closely. Time with Patient: Greater than 30
[2022-05-08 02:21] LABS: Glucose,Whole Blood 148 mg/dL (70-110)
[2022-05-08] MEDS: MAGNESIUM SULFATE-D5W PMX 1 GM in DEXTROSE/WATER 1 100ML.BAG IVPB SCH ×2 (03:59→06:39)
[2022-05-08 06:03] LABS: Glucose,Whole Blood 243 mg/dL (70-110)
[2022-05-08] MEDS: PANTOPRAZOLE 40 MG TABLET PO SCH (06:39)
[2022-05-08] MEDS: LEVOTHYROXINE 100 MCG TAB PO SCH (06:39)
[2022-05-08 08:05] LABS: African American GFR (CKD) >90 (>60 ml/min/1.73 sqM); Anion Gap 8 mmol/L; Blood Urea Nitrogen 12 mg/dL (7-17); Calcium 8.1 mg/dL (8.4-10.2); Carbon Dioxide 29 mmol/L (22-30); Chloride 92 mmol/L (98-107); Glucose 243 mg/dL (74-99); Non-African American GFR(CKD) >90 (>60 ml/min/1.73 sqM); Sodium 129 mmol/L (137-145)
[2022-05-08 08:07] LABS: Basophils % (A) 0 %; Eosinophils # (A) 0.1 k/uL (0-0.7); Eosinophils % (A) 1 %; HCT 38.7 % (34.0-46.0); HGB 13.1 gm/dL (11.4-16.0); Lymphocytes # (A) 0.5 k/uL (1.0-4.8); Lymphocytes % (A) 7 %; MCH 35.6 pg (25.0-35.0); MCHC 33.9 g/dL (31.0-37.0); MCV 104.9 fL (80.0-100.0); Macrocytosis Slight; Mean Platelet Volume 8.8; Monocytes # (A) 0.4 k/uL (0-1.0); Monocytes % (A) 6 %; Neutrophils % (A) 83 %; Platelet Count 173 k/uL (150-450); RBC 3.68 m/uL (3.80-5.40); RDW 13.6 % (11.5-15.5); WBC 7.2 k/uL (3.8-10.6)
[2022-05-08] MEDS ORDERED: POTASSIUM CHLORIDE ER 20 MEQ TAB.ER PO SCH (09:00)
[2022-05-08] MEDS: ATORVASTATIN 40 MG TAB PO SCH (09:49)
[2022-05-08] MEDS: ASPIRIN 81 MG PO SCH (09:49)
[2022-05-08] MEDS: MONTELUKAST 10 MG TAB PO SCH (09:50)
[2022-05-08] MEDS: busPIRone HCl 10 MG TAB PO SCH (09:50)
[2022-05-08] MEDS: CLOPIDOGREL 75 MG TAB PO SCH (09:50)
[2022-05-08] MEDS: MIDODRINE 5 MG TAB PO SCH (09:50)
[2022-05-08 10:57] VITALS: PULSE 77
[2022-05-08 11:33] LABS: Glucose,Whole Blood 226 mg/dL (70-110)
--- NOTE | 2022-05-08 11:47 | P.PN ---
Subjective Patient is seen for follow-up for hyponatremia. She has underlying CHF with ejection fraction 20-25%. Patient has severe pulmonary hypertension and severe tricuspid regurgitation as well. Status post cardiac catheterization this morning. Medical therapy is advised. Patient is maintained on IV fluids temporarily. Patient is complaining off increased swelling of the hands and face. She denies any significant shortness of breath. LVEDP pressures were no on cardiac catheterization. Serum sodium at 129. Patient is asking to resume her home diuretics. Objective - Vital Signs Vital signs: Vital Signs Temp 97.6 F 05/08/22 08:00 Pulse 77 05/08/22 08:00 Resp 18 05/08/22 08:00 BP 130/73 05/08/22 08:00 Pulse Ox 94 L 05/08/22 08:00 FiO2 Intake & Output 05/07/22 05/08/22 05/08/22 18:59 06:59 18:59 Intake Total 338 240 240 Output Total 600 500 500 Balance -262 -260 -260 Weight 73.7 kg Intake: Intake, IV Titration 100 Amount Sodium Chloride 0.9% 1, 100 000 ml @ 100 mls/hr IV . Q10H [facility] Rx#:[id number] Oral 238 240 240 Output: Urine 600 500 500 Other: Voiding Method Bedside Commode Bedside Commode Bedside Commode # Voids 1 - Exam Vital signs are stable. General: Awake. No acute distress. HEENT: Head exam is unremarkable. LUNGS: Breath sounds decreased. HEART: Rate and Rhythm are regular. ABDOMEN: Soft, no distention. EXTREMITITES: No edema. Hands appear slightly puffy bilaterally - Labs CBC & Chem 7: 05/08/22 06:50 05/08/22 06:50 Labs: Abnormal Lab Results - Last 24 Hours (Table) 05/07/22 05/07/22 05/07/22 Range/Units 11:42 12:08 16:48 RBC (3.80-5.40) m/uL MCV (80.0-100.0) fL MCH (25.0-35.0) pg Lymphocytes # (1.0-4.8) k/uL Sodium 129 L (137-145) mmol/L Chloride (98-107) mmol/L Glucose (74-99) mg/dL POC Glucose (mg/dL) 142 H 119 H (70-110) mg/dL Calcium (8.4-10.2) mg/dL 05/07/22 05/08/22 05/08/22 Range/Units 20:04 02:20 06:01 RBC (3.80-5.40) m/uL MCV (80.0-100.0) fL MCH (25.0-35.0) pg Lymphocytes # (1.0-4.8) k/uL Sodium (137-145) mmol/L Chloride (98-107) mmol/L Glucose (74-99) mg/dL POC Glucose (mg/dL) 131 H 148 H 243 H (70-110) mg/dL Calcium (8.4-10.2) mg/dL 05/08/22 05/08/22 05/08/22 Range/Units 06:50 06:50 11:31 RBC 3.68 L (3.80-5.40) m/uL MCV 104.9 H (80.0-100.0) fL MCH 35.6 H (25.0-35.0) pg Lymphocytes # 0.5 L (1.0-4.8) k/uL Sodium 129 L (137-145) mmol/L Chloride 92 L (98-107) mmol/L Glucose 243 H (74-99) mg/dL POC Glucose (mg/dL) 226 H (70-110) mg/dL Calcium 8.1 L (8.4-10.2) mg/dL Microbiology - Last 24 Hours (Table) 05/04/22 15:45 Blood Culture - Preliminary Blood No Growth after 72 hours 05/04/22 15:30 Blood Culture - Preliminary Blood No Growth after 72 hours Assessment and Plan Assessment: 1. Acute kidney injury mostly prerenal from hemodynamics and diuresis. Also received ibuprofen this admission. Creatinine 0.6 today. Baseline creatinine near 1. 2. Hyperkalemia secondary to potassium supplementation, NSAIDs and acute kidney injury. Improved with medical management. 3. Chronic systolic CHF with ejection fraction of 20-25% with moderate to severe tricuspid regurgitation and severe pulmonary hypertension. 4. Hyponatremia. Mildly hypervolemic. Urine sodium 27 and urine osmolality 325. Sodium is worse with IV hydration. Status post 1 dose of Bumex yesterday 5. Syncope. 6. Non-ST elevated myocardial infarction with elevated troponins. Currently on IV heparin. Cardiology following. 7. Pyuria. Received Rocephin this admission. Urine culture pending. 8. Diabetes mellitus. Plan: Patient can be discharged from nephrology standpoint. Okay to resume diuretics post discharge but patient is advised to decrease to once a day instead of twice a day
[2022-05-08] MEDS: LORazepam 0.5 MG TAB PO SCH (11:55)
[2022-05-08] MEDS ORDERED: BUMETANIDE 1 MG TAB PO ONE (12:00)
--- NOTE | 2022-05-08 14:02 | P.PN ---
Subjective Progress Note Date: 05/08/22 HISTORY OF PRESENT ILLNESS: This is a 65 year old female with a past medical history significant for coronary artery disease with previous CABG x 4 in 2001 and PCI 01/12 and 03/15, is chemic cardiomyopathy, AICD implantation, hypertension, hyperlipidemia, ischemic cardiomyopathy and diabetes. Patient follows with Dr. Ambriz. She was recently admitted last week secondary to hypokalemia and lab abnormalities and therefore received electrolyte supplementation and workup one week ago. She was discharged for approximately 2 days and then started having some back pain which she admits felt somewhat similar to her prior angina. She then was walking to a gravesite and then had a syncopal episode. Overall she states she has been feeling fairly well other than some fatigue. Denies any of the back pain currently. She does have prior history of syncope and is being worked up for hyponatremia as well as borderline low blood pressures and is seeing Dr. Burns with advanced heart failure from [facility]. Blood work showed hyperkalemia with potassium 6.7, sodium 128, mild acute kidney injury with baseline creatinine approximately 0.7 and up to 1.0-1.2, troponin 0.2, 1.7, 2.5. Blood pressures have been in the 120s to 130s. Previous cardiac cath with Dr. Thompson in December 2020 with PCI of the SVG to PDA. 05/06 Patient seen and examined. Patient started having more back pain radiating up in her jaw and nausea approximately 130 this morning. Repeat EKG similar to prior with nonspecific T-wave inversions. Given ongoing symptoms discussion regarding urgent heart catheterization. Echo showed EF 25-30% with severe pulmonary hypertension and severe tricuspid regurgitation with RVSP 95. 05/07 Patient seen and examined. Patient underwent heart catheterization yesterday showing occluded SVG to diagonal branch, moderate 50-60% SVG to RCA stenosis, occluded circumflex. Given patient was not having any angina-type symptoms, her back pain had improved and appeared to have completed her infarct along with kidney injury, no intervention was performed. She was given IVF with LVEDP low normal at 6mmHg. denies any further back pain. She did have some nausea trying to take her potassium pills. 05/08/2022 Patient examined this morning at the bedside. Patient denies chest pain or pressure. She denies shortness of breath. Vital signs are stable. Received a dose of Bumex per nephrology PHYSICAL EXAM: VITAL SIGNS: Reviewed. GENERAL: Well-developed in no acute distress. NECK: Supple. No JVD or thyromegaly LUNGS: Respirations even and unlabored. Lungs essentially clear to auscultation bilaterally. HEART: Regular rate and rhythm. S1 and S2 heard. EXTREMITIES: Normal range of motion. No clubbing or cyanosis. Peripheral pulses intact. No lower extremity edema ASSESSMENT: NSTEMI, Type 1 mechanism Syncope, likely related to AK, no arrhythmia on AICD interrogation Nausea and vomiting Hyponatremia Hypomagnesemia Coronary artery disease with PCI SVG to right PDA, December 2020 and additional stenting in February 2021, details unknown History of CABG x 2001 Ischemic cardiomyopathy, status post AICD Hypertension Hyperlipidemia Pulmonary fibrosis Diabetes mellitus Severe pulmonary hypertension Low normal left sided filling pressures on LHC, LVEDP 6, s/p IVF PLAN: Continue current cardiac medications Add Imdur 30 mg daily Diuretic management per nephrology Patient is stable for discharge home today from a cardiac standpoint She is to follow up outpatient with Dr. lKine and also at [facility] Nurse practitioner note has been reviewed by physician. Signing provider agrees with the documented findings, assessment, and plan of care. Objective - Vital Signs Vital signs: Vital Signs Temp 97.6 F 05/08/22 08:00 Pulse 77 05/08/22 08:00 Resp 18 05/08/22 08:00 BP 130/73 05/08/22 08:00 Pulse Ox 94 L 05/08/22 08:00 FiO2 Intake & Output 05/07/22 05/08/22 05/08/22 18:59 06:59 18:59 Intake Total 338 240 358 Output Total 600 500 500 Balance -262 -260 -142 Weight 73.7 kg Intake: Intake, IV Titration 100 Amount Sodium Chloride 0.9% 1, 100 000 ml @ 100 mls/hr IV . Q10H [facility] Rx#:[id number] Oral 238 240 358 Output: Urine 600 500 500 Other: Voiding Method Bedside Commode Bedside Commode Bedside Commode # Voids 1 - Labs CBC & Chem 7: 05/08/22 06:50 05/08/22 06:50 Labs: Abnormal Lab Results - Last 24 Hours (Table) 05/07/22 05/07/22 05/08/22 Range/Units 16:48 20:04 02:20 RBC (3.80-5.40) m/uL MCV (80.0-100.0) fL MCH (25.0-35.0) pg Lymphocytes # (1.0-4.8) k/uL Sodium (137-145) mmol/L Chloride (98-107) mmol/L Glucose (74-99) mg/dL POC Glucose (mg/dL) 119 H 131 H 148 H (70-110) mg/dL Calcium (8.4-10.2) mg/dL 05/08/22 05/08/22 05/08/22 Range/Units 06:01 06:50 06:50 RBC 3.68 L (3.80-5.40) m/uL MCV 104.9 H (80.0-100.0) fL MCH 35.6 H (25.0-35.0) pg Lymphocytes # 0.5 L (1.0-4.8) k/uL Sodium 129 L (137-145) mmol/L Chloride 92 L (98-107) mmol/L Glucose 243 H (74-99) mg/dL POC Glucose (mg/dL) 243 H (70-110) mg/dL Calcium 8.1 L (8.4-10.2) mg/dL 05/08/22 Range/Units 11:31 RBC (3.80-5.40) m/uL MCV (80.0-100.0) fL MCH (25.0-35.0) pg Lymphocytes # (1.0-4.8) k/uL Sodium (137-145) mmol/L Chloride (98-107) mmol/L Glucose (74-99) mg/dL POC Glucose (mg/dL) 226 H (70-110) mg/dL Calcium (8.4-10.2) mg/dL Microbiology - Last 24 Hours (Table) 05/04/22 15:45 Blood Culture - Preliminary Blood No Growth after 72 hours 05/04/22 15:30 Blood Culture - Preliminary Blood No Growth after 72 hours
[2022-05-08 16:20] VITALS: BP 126/82; TEMP 98.7
--- NOTE | 2022-05-08 23:58 | P.DS ---
Providers Date of admission: 05/04/22 16:18 Attending physician: Lupe Yee Consults: 05/04/22 15:19 Consult Physician Routine Consulting Provider: Bruno Keller Consult Reason/Comments: hyperkalemia Do you want consulting provider notified?: Yes Consult Physician Routine Consulting Provider: Rory Suarez Consult Reason/Comments: NSTEMI Do you want consulting provider notified?: Yes Primary care physician: Shamika Martins Hospital Course: Final Diagnosis Elevated troponin level possible non-ST elevated IL post cardiac catheterization recommending medical management Generalized weakness and fatigue with syncopal episode Hypnonatremia, hypervolemic Acute kidney injury likely prerenal due to diuretic use and volume depletion Hyperkalemia secondary to acute kidney injury and potassium supplementation. resolved Chronic CHF with systolic dysfunction ejection fraction 20-25% Ischemic cardiomyopathy history AICD placement Coronary artery disease status post 4 vessel cabg and PCI Moderate to severe TR Severe pulmonary hypertension Asymptomatic bacteriruria with urine cultures showing gram negative bacilli monitor off antibiotics patient is asymptomatic. Diabetes type 2 insulin-dependent on insulin pump. Anxiety/depression Pulmoanary fibrosis Prior history of smoking Full Code Discharge Disposition Patient is stable for discharge home. Overall guarded prognosis secondary to co ntinued ischemic cardiomyopathy and multiple comorbidities. Cardiology has cleared patient. Nephrology has cleared patient recommending to resume oral bumex at once a day. Patient recommended to hold metolazone and also spironolactone in discharge until follow up. Most recent sodium level 129. Patient admitted with potassium level of 6.7 and for this reason oral potassium held on discharge as well. Patient has been started on isosorbide mononitrate 30 mg po daily. Repeat BMP recommended in 2 to 3 days. Patient to follow up with primary care Dr. Martins in 1 to 2 days. Follow up with Dr. Orona in 1 week, and patient to follow up with Dr. Kline. She is also recommend to see her make up artist out of [facility] on discharge. Total time taken in discharge planning greater than 35 minutes. Hospital Course Patient is a 66-year-old male with a known history of chronic CHF, history of AICD placement, coronary artery disease status post CABG and stent placement, diabetes type 2 on insulin pump, pulmonary fibrosis, Raynaud's disease, anxiety/depression prior history of smoking was brought to the hospital by her due to complaints of syncopal episode. Patient states that she felt v young weak and had a syncopal episode witness by , patient did not fall. Patient lost consciousness for about 2-3 minutes as per . She has been having generalized weakness, fatigue and mild shortness of breath. Patient was recently admitted to the hospital due to severe hyponatremia and hypokalemia. She received dose of Samsca and was seen by nephrology. Discharged 2 days ago and returned secondary go back pain similar to anginal episode she has experienced prior and also syncopal episode. Bumex dose was reduced to daily and metolazone when necessary. Patient is also on Aldactone and potassium chloride 20 mg 3 times a day. Patient was found to have worsening bibasilar infiltrates on admission, possible pneumonia. Sodium level found to be 128, potassium 6.7 on admission, BUN 26 creatinine 1.06. ProBNP elevated at 8180 and troponin elevation also. Patient is admitted to the hospital and consult placed to cardiology and nephrology. She received cocktail of insulin/dextrose and sodium bicarbonate and potassium improved. AICD interrogated showing no arrythmia. Echocardiogram showing EF 25 to 30% with severe pulmonary hypertension. Patient underwent cardiac catheterization secondary to persistent back pain with radiation showing occluded SVG to diagonal branch as well as progression of circumflex disease. Recommending to optimize medical therapy. Patient is LV EDP was low and was started on IV hydration with normal saline as per cardiology recommendations. She was given IV hydration and diuretics held, however patients sodium worsened. Also she developed peripheral edema and around 12 lb weight gain. She was given a dose of oral sodium chloride and sodium level had improved to 128. Nephrology recommending to resume oral bumex with once daily dosing. 05/08/2022 Patient evaluated today sitting up in chair. Currently denying chest pain, denying dizziness lightheadedness. No shortness of breath, no chest pain. Has been started on isosorbide mononitrate. Sodium improved to 129. Lungs are clear, S1 S2 auscultated. She does have peripheral edema 2+ non pitting and also some upper extremity edema. Has been off diuretics and receiving IV hydration. Creatinine has improved down to 0.62 and patient will be resumed on oral bumex. Potassium 4.0 today. Recommend to repeat BMP in 2 to 3 days. Blood glucose in the 130s and patient continues on insulin pump. Afebrile, heart rate 77, blood pressure 126/82, 95% on room air. Patient will be discharged home today. Please see medication reconciliation for a list of current medication. Thank you for allowing us to participate in the care of this patient. The impression and plan of care has been dictated by Preeti Ballard, Nurse Practitioner as directed. Dr. Ita MD I have performed a history and physical examination and medical decision making of this patient, discussed the same with the dictator, and agree with the dictators assessment and plan as written, documented as a scribe. Based on total visit time, I have performed more than 50% of this visit. Patient Condition at Discharge: Fair Plan - Discharge Summary Discharge Rx Participant: No New Discharge Prescriptions: New Isosorbide Mononitrate ER [Imdur] 30 mg PO DAILY #30 tab Nitroglycerin Sl Tabs [Nitrostat] 0.4 mg SUBLINGUAL Q5M PRN #100 tab PRN Reason: Chest Pain Continue Omeprazole [PriLOSEC] 20 mg PO DAILY Montelukast [Singulair] 10 mg PO DAILY Cholecalciferol [Vitamin D3 (25 Mcg = 1000 Iu)] 50 mcg PO DAILY Levothyroxine Sodium [Synthroid] 100 mcg PO MOTUWETHFRSA Clopidogrel [Plavix] 75 mg PO DAILY 90 Days #90 tab Rosuvastatin [Crestor] 20 mg PO DAILY LORazepam [Ativan] 0.5 mg PO DAILY@1200 Midodrine [ProAmatine] 5 mg PO TID Aspirin EC [Ecotrin Low Dose] 81 mg PO DAILY Multivit with Calcium,Iron,Min [Women's Multivitamin] 1 tab PO DAILY Insulin Aspart (For Pump) [NovoLOG (For Pump)] 0.01 unit SQ-PUMP CONTINUOUS Metoclopramide HCl [Reglan] 5 mg PO TID PRN PRN Reason: Nausea Cyclobenzaprine [Flexeril] 10 mg PO BID traZODone HCL 50 mg PO HS Ubidecarenone [Coenzyme Q10] 200 mg PO DAILY Bumetanide [BUMEX] 2 mg PO DAILY 30 Days #30 tab busPIRone HCl [Buspar] 10 mg PO BID #0 Discontinued Potassium Chloride [K-Tab ER] 20 meq PO TID metOLazone 2.5 mg PO DAILY PRN PRN Reason: Edema Spironolactone [Aldactone] 25 mg PO DAILY Discharge Medication List Omeprazole [PriLOSEC] 20 mg PO DAILY 02/02/14 [History] Aspirin EC [Ecotrin Low Dose] 81 mg PO DAILY 11/12/20 [History] Cholecalciferol [Vitamin D3 (25 Mcg = 1000 Iu)] 50 mcg PO DAILY 11/12/20 [Hist ory] Insulin Aspart (For Pump) [NovoLOG (For Pump)] 0.01 unit SQ-PUMP CONTINUOUS 11/12/20 [History] Levothyroxine Sodium [Synthroid] 100 mcg PO MOTUWETHFRSA 11/12/20 [History] Montelukast [Singulair] 10 mg PO DAILY 11/12/20 [History] Multivit with Calcium,Iron,Min [Women's Multivitamin] 1 tab PO DAILY 11/12/20 [History] Cyclobenzaprine [Flexeril] 10 mg PO BID 01/13/21 [History] Metoclopramide HCl [Reglan] 5 mg PO TID PRN 01/13/21 [History] Clopidogrel [Plavix] 75 mg PO DAILY 90 Days #90 tab 01/18/21 [Rx] Rosuvastatin [Crestor] 20 mg PO DAILY 10/03/21 [History] traZODone HCL 50 mg PO HS 10/03/21 [History] LORazepam [Ativan] 0.5 mg PO DAILY@1200 04/28/22 [History] Midodrine [ProAmatine] 5 mg PO TID 04/28/22 [History] Ubidecarenone [Coenzyme Q10] 200 mg PO DAILY 04/28/22 [History] Bumetanide [BUMEX] 2 mg PO DAILY 30 Days #30 tab 05/02/22 [Rx] Isosorbide Mononitrate ER [Imdur] 30 mg PO DAILY #30 tab 05/08/22 [Rx] Nitroglycerin Sl Tabs [Nitrostat] 0.4 mg SUBLINGUAL Q5M PRN #100 tab 05/08/22 [Rx] busPIRone HCl [Buspar] 10 mg PO BID #0 05/08/22 [Rx] Follow up Appointment(s)/Referral(s): Dabry Orona MD [STAFF PHYSICIAN] - 1 Week (SundayMay 10, 11:00) Shamika Martins MD [Primary Care Provider] - 1-2 days (May 10, : disregard other time) Aaron Kline DO [STAFF PHYSICIAN] - 1 Week (May 17, :00) Ambulatory/Diagnostic Orders: Basic Metabolic Panel [LAB.AMB] Time Frame: 3 Days, Location: None Selected Patient Instructions/Handouts: Heart Attack (DC), Hyperkalemia (DC), After Radi al Heart Catheterization (GEN) Activity/Diet/Wound Care/Special Instructions: Decrease bumex to once per day Recommend to hold spironolactone and also hold metolazole until follow up with primary care /nephrology. If you experience an increase in swelling notify provider Repeat BMP in 2 to 3 days, hold oral potassium for now. Monitor weight daily and keep log for follow up appointment Recommend to see primary care Dr. Martins in 1 to 2 days Recommend to see Dr. Orona in 1 week [address] to [address] Kline and also patient to see [facility] make up artist as well. Discharge Disposition: HOME SELF-CARE
[2022-05-09] MEDS ORDERED: ISOSORBIDE MONONITRATE ER 30 MG TAB.ER.24H PO SCH (09:00)
[2022-05-09] MEDS ORDERED: ISOSORBIDE MONONITRATE ER 15 MG TAB PO SCH (09:00)
--- NOTE | 2022-05-10 10:52 | CDI ---
Documentation Clarification Form Date: 05/10/22 From: Christal Radford Admit Date: 05/04/2022 04:18:00 PM Patient Name: Kymberly Potts Visit Number: [id number] Discharge Date: 05/08/2022 04:15:00 PM ATTENTION: The Clinical Documentation Specialists (CDI) and [facility] Coding Staff appreciate your assistance in clarifying documentation. Please respond to the clarification below the line at the bottom and electronically sign. The CDI & [facility] Coding staff will review the response and follow-up if needed. Please note: Queries are made part of the Legal Health Record. If you have any questions, please contact the author of this message via ITS. Dr. Haylee Jean Baptiste, Pneumonia is documented in the H&P which may lack sufficient clinical evidence/support in the medical record. Additional clarification is requested. History/Risk Factors: NSTEMI, TAYLOR, hyponatremia, CAD, chronic systolic heart failure w HTN, T2DM, pulmonary fibrosis Clinical Indicators: Pneumonia and urinary tract infection treated with doxycycline and Keflex. Treatment: IV Rocephin, IV Vibramycin Please clarify if pneumonia is a valid diagnosis? [ ] Yes, [insert diagnosis] is present as evidence by (additional clinical support): [ ] No, [insert diagnosis] is ruled out [ ] Other (please specify diagnosis) [ ] Unable to determine I did not dictated H&P MTDD
--- NOTE | 2022-05-12 10:24 | CDI ---
Documentation Clarification Form Date: 05/10/2022 10:51:00 AM From: Christal Radford Admit Date: 05/04/2022 04:18:00 PM Patient Name: Kymberly Potts Visit Number: [id number] Discharge Date: 05/08/2022 04:15:00 PM ATTENTION: The Clinical Documentation Specialists (CDI) and [facility] Coding Staff appreciate your assistance in clarifying documentation. Please respond to the clarification below the line at the bottom and electronically sign. The CDI & [facility] Coding staff will review the response and follow-up if needed. Please note: Queries are made part of the Legal Health Record. If you have any questions, please contact the author of this message via ITS. Dr. Lupe Yee, Pneumonia is documented in the H&P which may lack sufficient clinical evidence/support in the medical record. Additional clarification is requested. History/Risk Factors: NSTEMI, TAYLOR, hyponatremia, CAD, chronic systolic heart failure w HTN, T2DM, pulmonary fibrosis Clinical Indicators: Pneumonia and urinary tract infection treated with doxycycline and Keflex. Treatment: IV Rocephin, IV Vibramycin Please clarify if pneumonia is a valid diagnosis? [ ] Yes, [insert diagnosis] is present as evidence by (additional clinical support): [ x ] No, [insert diagnosis] is ruled out [ ] Other (please specify diagnosis) [ ] Unable to determine MTDD
== END 2022-05-08 16:15 | disposition home or self-care (01) | DRG 281 ==
LOC: EC 11:01 → 3SCARD 16:18
PROVIDERS: ADMIT Internal Medicine; ATTEND Internal Medicine
PROC: B2181ZZ Fluoroscopy of Left Internal Mammary Bypass Graft using Low Osmolar Contrast (ICD-10-PCS; principal; 2022-05-06 03:28)
PROC: 4A023N7 Measurement of Cardiac Sampling and Pressure, Left Heart, Percutaneous Approach (ICD-10-PCS; principal; 2022-05-06 03:28)
PROC: B2131ZZ Fluoroscopy of Multiple Coronary Artery Bypass Grafts using Low Osmolar Contrast (ICD-10-PCS; principal; 2022-05-06 03:28)
PROC: B2111ZZ Fluoroscopy of Multiple Coronary Arteries using Low Osmolar Contrast (ICD-10-PCS; principal; 2022-05-06 03:28)
DX: I21.4 Non-ST elevation (NSTEMI) myocardial infarction (principal); E87.1 Hypo-osmolality and hyponatremia; N17.9 Acute kidney failure, unspecified; T82.855A Stenosis of coronary artery stent, initial encounter; I25.810 Atherosclerosis of coronary artery bypass graft(s) without angina pectoris; I50.22 Chronic systolic (congestive) heart failure; I11.0 Hypertensive heart disease with heart failure; I27.20 Pulmonary hypertension, unspecified; E11.9 Type 2 diabetes mellitus without complications; J84.10 Pulmonary fibrosis, unspecified; Z79.4 Long term (current) use of insulin; E86.9 Volume depletion, unspecified; I25.10 Atherosclerotic heart disease of native coronary artery without angina pectoris; I25.5 Ischemic cardiomyopathy; E87.5 Hyperkalemia; E83.42 Hypomagnesemia; E78.5 Hyperlipidemia, unspecified; I07.1 Rheumatic tricuspid insufficiency; M54.9 Dorsalgia, unspecified; I25.2 Old myocardial infarction; I73.00 Raynaud's syndrome without gangrene; F32.A Depression, unspecified; F41.9 Anxiety disorder, unspecified; T50.2X5A Adverse effect of carbonic-anhydrase inhibitors, benzothiadiazides and other diuretics, initial encounter; R82.71 Bacteriuria; Z79.82 Long term (current) use of aspirin; Z79.02 Long term (current) use of antithrombotics/antiplatelets; Z79.890 Hormone replacement therapy; Z79.899 Other long term (current) drug therapy; Z96.41 Presence of insulin pump (external) (internal); Z95.810 Presence of automatic (implantable) cardiac defibrillator; Z95.5 Presence of coronary angioplasty implant and graft; Z87.891 Personal history of nicotine dependence; Z88.1 Allergy status to other antibiotic agents; Z91.040 Latex allergy status; Z88.5 Allergy status to narcotic agent; Z88.0 Allergy status to penicillin; Z82.49 Family history of ischemic heart disease and other diseases of the circulatory system
CPT/HCPCS: 36415; 71045; 71046; 80048; 80053; 81001; 83735; 83880; 83935; 84132; 84145; 84295; 84300; 84443; 84484; 85025; 85610; 85730; 87040; 87086; 93005; 93306; 93459; 94640; 94760; 96365; 96366; 96368; 96375; 99285

== ENCOUNTER → 2022-05-24 | Outpatient (CLI) | payer MEDICARE ==
--- NOTE | 2022-05-24 13:20 | XR ---
EXAMINATION TYPE: XR chest 2V DATE OF EXAM: 05/24/2022 COMPARISON: 05/05/2022 HISTORY: Shortness of breath FINDINGS: Noted is pulmonary venous congestion with scattered infiltrates. There is also cardiomegaly and small effusions. IMPRESSION: Findings compatible with congestive failure. Infiltrates of other etiology are not excluded. Clinical correlation and progress studies are recommended.
== END | disposition home or self-care (01) ==
LOC: RADXRMAIN 12:10
PROVIDERS: ATTEND Internal Medicine Nephrology
DX: R06.02 Shortness of breath (principal)
CPT/HCPCS: 71046

== ENCOUNTER 2022-05-26 16:35 | Inpatient (IN) | payer MEDICARE ==
[2022-05-26 18:13] LABS: ALT 31 U/L (4-34); AST 48 U/L (14-36); African American GFR (CKD) >90 (>60 ml/min/1.73 sqM); Albumin 4.1 g/dL (3.5-5.0); Alkaline Phosphatase 128 U/L (38-126); Anion Gap 10 mmol/L; Blood Urea Nitrogen 23 mg/dL (7-17); Calcium 8.7 mg/dL (8.4-10.2); Carbon Dioxide 28 mmol/L (22-30); Chloride 91 mmol/L (98-107); Glucose 151 mg/dL (74-99); Non-African American GFR(CKD) 80 (>60 ml/min/1.73 sqM); Potassium 3.7 mmol/L (3.5-5.1); Sodium 129 mmol/L (137-145); Total Protein 6.9 g/dL (6.3-8.2)
[2022-05-26 18:18] LABS: INR 1.2 (<1.2); Partial Thromboplastin Time 27.8 sec (22.0-30.0); Prothrombin Time 12.4 sec (9.0-12.0)
[2022-05-26 18:35] LABS: Basophils % (A) 1 %; Eosinophils % (A) 1 %; HCT 44.5 % (34.0-46.0); HGB 14.9 gm/dL (11.4-16.0); Hypochromasia Slight; Lymphocytes # (A) 0.9 k/uL (1.0-4.8); Lymphocytes % (A) 16 %; MCH 35.6 pg (25.0-35.0); MCHC 33.6 g/dL (31.0-37.0); MCV 105.9 fL (80.0-100.0); Macrocytosis Moderate; Mean Platelet Volume 8.3; Monocytes # (A) 0.3 k/uL (0-1.0); Monocytes % (A) 6 %; Neutrophils # (A) 3.8 k/uL (1.3-7.7); Neutrophils % (A) 71 %; Platelet Count 167 k/uL (150-450); RDW 14.9 % (11.5-15.5); WBC 5.3 k/uL (3.8-10.6)
--- NOTE | 2022-05-26 18:51 | XR ---
EXAMINATION TYPE: XR chest 2V DATE OF EXAM: 05/26/2022 COMPARISON: 05/24/2022 HISTORY: Difficulty breathing TECHNIQUE: 2 views FINDINGS: Heart is enlarged. There is pulmonary interstitial edema. There is left axillary pacemaker. Bony thorax is intact. There are no hilar masses. IMPRESSION: Moderate cardiomegaly. Pulmonary interstitial edema which is the same or slightly worse t pappas last exam and could be congestive heart failure.
[2022-05-26] MEDS ORDERED: FUROSEMIDE 10 MG/ML 4 ML VIAL IV STA (19:26)
[2022-05-26] MEDS ORDERED: NALOXONE 0.4 MG/ML 1 ML VIAL IV PRN (20:00)
[2022-05-26] MEDS ORDERED: ASPIRIN 81 MG PO STA (20:02)
--- NOTE | 2022-05-26 20:08 | ED ---
General Adult HPI - General Chief complaint: Shortness of Breath Stated complaint: SOB, congested heart failure Time Seen by Provider: 05/26/22 19:15 Source: patient, RN notes reviewed, old records reviewed Mode of arrival: wheelchair Limitations: no limitations - History of Present Illness Initial comments: Patient is a 66-year-old female with past medical history remarkable for congestive heart failure, insulin dependent diabetes with an insulin pump, CAD, presents emergency Department complaining of exertional shortness of breath, lower extremity swelling that has been worse since her last discharge from the hospital. Patient was admitted and discharged home last month for pneumonia. She states that since discharge, she is having worsening exertional shortness of breath, worsening lower extremity edema, worsening nonproductive cough. Denies orthopnea or PND. States this is similar to when her heart failure is bad. They did make some medication adjustments with minimal improvement for the patient. She denies any chest pain. Denies abdominal pain, nausea, vomiting. Denies any fevers or chills. Has no other acute complaints at this time. Presents after being sent by her PCP over concern for retaining fluids and CHF exacerbation. - Related Data Home Medications Medication Instructions Recorded Confirmed Omeprazole [PriLOSEC] 40 mg PO HS 02/02/14 05/26/22 Aspirin EC [Ecotrin Low Dose] 81 mg PO DAILY 11/12/20 05/26/22 Cholecalciferol [Vitamin D3 (25 50 mcg PO DAILY 11/12/20 05/26/22 Mcg = 1000 Iu)] Insulin Aspart (For Pump) [NovoLOG 0.01 unit SQ-PUMP CONTINUOUS 11/12/2005/26 (For Pump)] Levothyroxine Sodium [Synthroid] 100 mcg PO MOTUWETHFRSA 11/12/20 05/26/22 Montelukast [Singulair] 10 mg PO DAILY 11/12/20 05/26/22 Multivit with Calcium,Iron,Min 1 tab PO DAILY 11/12/20 05/26/22 [Women's Multivitamin] Cyclobenzaprine [Flexeril] 10 mg PO BID 01/13/21 05/26/22 Metoclopramide HCl [Reglan] 5 mg PO TID PRN 01/13/21 05/26/22 Rosuvastatin [Crestor] 20 mg PO HS 10/03/21 05/26/22 LORazepam [Ativan] 0.5 mg PO DAILY@1200 04/28/22 05/26/22 Midodrine [ProAmatine] 5 mg PO TID 04/28/22 05/26/22 Ubidecarenone [Coenzyme Q10] 200 mg PO DAILY 04/28/22 05/26/22 Bumetanide [BUMEX] 4 mg PO BID@0900,1400 05/15/22 05/26/22 Clopidogrel [Plavix] 75 mg PO HS 05/15/22 05/26/22 Isosorbide Mononitrate ER [Imdur] 30 mg PO DAILY 05/15/22 05/26/22 Temazepam 7.5 mg PO HS 05/15/22 05/26/22 Nitroglycerin Sl Tabs [Nitrostat] 0.4 mg SL Q5M PRN 05/26/22 05/26/22 Potassium Chloride [Potassium 20 meq PO DAILY 05/26/22 05/26/22 Chloride ER] Previous Rx's Medication Instructions Recorded busPIRone HCl [Buspar] 10 mg PO BID #0 05/08/22 Allergies Allergy/AdvReac Type Severity Reaction Status Date / Time adhesive Allergy Unknown Verified 05/26/22 17:05 latex Allergy Itching Verified 05/26/22 17:05 amoxicillin [From Augmentin] AdvReac Nausea & Verified 05/26/22 17:05 Vomiting clarithromycin [From Biaxin] AdvReac Nausea & Verified 05/26/22 17:05 Vomiting clavulanic acid AdvReac Nausea & Verified 05/26/22 17:05 [From Augmentin] Vomiting codeine AdvReac Nausea & Verified 05/26/22 17:05 Vomiting nitrofurantoin AdvReac Nausea & Verified 05/26/22 17:05 [From Macrobid] Vomiting Penicillins AdvReac Nausea & Verified 05/26/22 17:05 Vomiting Review of Systems ROS Statement: Those systems with pertinent positive or pertinent negative responses have been documented in the HPI. Review of Systems: CONST: Denies fever EYES: Denies blurry vision ENT: Denies nasal congestion C/V: Denies Chest pain RESP: Endorses exertional shortness of breath GI: Denies abdominal pain : Denies dysuria SKIN: Denies rash. MSK: Denies joint pain. NEURO: Denies headache ROS Other: All systems not noted in ROS Statement are negative. Past Medical History Past Medical History: Coronary Artery Disease (CAD), Heart Failure, Diabetes Mellitus Additional Past Medical History / Comment(s): SEE H & P FROM DR. OTTO. Pulmonary Fribrosis,raynaud's IDDM. Last Myocardial Infarction Date:: 2001 History of Any Multi-Drug Resistant Organisms: None Reported Past Surgical History: AICD, Section, Coronary Bypass/CABG, Heart Catheterization, Heart Catheterization With Stent, Hysterectomy, Pacemaker, Tubal Ligation Additional Past Surgical History / Comment(s): cataract surgery, hand surgery, recent heart stent 02/12, Heart stent 03/07/2021 Past Anesthesia/Blood Transfusion Reactions: Postoperative Nausea & Vomiting (PONV) Date of Last Stent Placement:: 03/07/2021 Type of Cardiac Device: Permanent Pacemaker, AICD Device Placement Date:: Quietyme Past Psychological History: Anxiety, Depression Smoking Status: Former smoker Past Alcohol Use History: Rare Past Drug Use History: None Reported - Past Family History Father Family Medical History: Deep Vein Thrombosis (DVT), Myocardial Infarction (ND) Additional Family Medical History / Comment(s): Open heart surgery. Brother(s) Additional Family Medical History / Comment(s): Heart surgery. Mother Family Medical History: No Reported History General Exam - General Exam Comments Initial Comments: General: Appears in no acute distress. HEAD: Normal with no signs of head trauma. EYES: PERRLA, EOMI, conjunctiva normal, no discharge. ENT: Hearing grossly intact, normal oropharynx. RESPIRATORY: Crackles bilaterally. Minimal if any increased work of breathing. Mild hypoxia on room air down to 90%. Improved on 2 L nasal cannula which she is on at night. C/V: Regular rate and rhythm. S1 and S2 auscultated, bilateral lower extremity pitting edema, peripheral pulses 2+ and intact throughout ABD: Abd is soft, nontender, nondistended EXT: Normal range of motion, no obvious deformity SKIN: No rashes or lesions observed on exposed skin. NEURO: Alert and oriented 4. Limitations: no limitations Course Vital Signs 05/26/22 05/26/22 05/26/22 16:59 19:14 20:40 Temperature 98.4 F Pulse Rate 86 81 78 Respiratory 22 18 18 Rate Blood Pressure 109/74 125/83 O2 Sat by Pulse 93 L 93 L 100 Oximetry Medical Decision Making - Medical Decision Making Based on the patient's presentation and physical exam, she presents with a clinical CHF exacerbation. We will obtain ACS labs but patient presents with symptoms of volume overload. She is mildly hypoxic on room air will be placed on nasal cannula. There was a delay in evaluating the patient due to the high volumes in the emergency department and I saw her when she was placed in a room. Vital signs are otherwise within acceptable limits. We will administer dose of Lasix and aspirin. She was in agreement this plan. EKG shows no acute changes. No signs of acute ischemia. Laboratory studies w ere remarkable for a mild hyponatremia which is chronic for the patient 129. Troponin is minimally elevated to 0.05 which is likely secondary to CHF exacerbation. We will continue to trend. BNP is pending at this time. Chest x-ray as interpreted by myself reveals bilateral pulmonary vascular congestion with pacemaker present.BNP is elevated to 7200. I updated the patient results of her workup. I believe she requires admission to the hospital. She was in agreement this plan. Echo was ordered. We will continue diuresis with IV Lasix. We will continue to trend the troponin. Subcutaneous heparin we'll discontinue for DVT prophylaxis. She was in agreement this plan. Cardiology is consulted. I spoke with the patient's admitting team, [facility] who is covering for Dr. Martins. LOAN Nicholas accepted the admission. Patient was admitted in stable condition. - Lab Data Result diagrams: 05/26/22 17:21 05/26/22 17:21 Lab Results 05/26/22 05/26/22 05/26/22 Range/Units 17:21 17:21 17:21 WBC 5.3 (3.8-10.6) k/uL RBC 4.20 (3.80-5.40) m/uL Hgb 14.9 (11.4-16.0) gm/dL Hct 44.5 (34.0-46.0) % MCV 105.9 H (80.0-100.0) fL MCH 35.6 H (25.0-35.0) pg MCHC 33.6 (31.0-37.0) g/dL RDW 14.9 (11.5-15.5) % Plt Count 167 (150-450) k/uL MPV 8.3 Neutrophils % 71 % Lymphocytes % 16 % Monocytes % 6 % Eosinophils % 1 % Basophils % 1 % Neutrophils # 3.8 (1.3-7.7) k/uL Lymphocytes # 0.9 L (1.0-4.8) k/uL Monocytes # 0.3 (0-1.0) k/uL Eosinophils # 0.0 (0-0.7) k/uL Basophils # 0.0 (0-0.2) k/uL Hypochromasia Slight Macrocytosis Moderate PT 12.4 H (9.0-12.0) sec INR 1.2 H (<1.2) APTT 27.8 (22.0-30.0) sec Sodium 129 L (137-145) mmol/L Potassium 3.7 (3.5-5.1) mmol/L Chloride 91 L (98-107) mmol/L Carbon Dioxide 28 (22-30) mmol/L Anion Gap 10 mmol/L BUN 23 H (7-17) mg/dL Creatinine 0.78 (0.52-1.04) mg/dL Est GFR (CKD-EPI)AfAm >90 (>60 ml/min/1.73 sqM) Est GFR (CKD-EPI)NonAf 80 (>60 ml/min/1.73 sqM) Glucose 151 H (74-99) mg/dL Calcium 8.7 (8.4-10.2) mg/dL Total Bilirubin 1.0 (0.2-1.3) mg/dL AST 48 H (14-36) U/L ALT 31 (4-34) U/L Alkaline Phosphatase 128 H (38-126) U/L Troponin I (0.000-0.034) ng/mL NT-Pro-B Natriuret Pep pg/mL Total Protein 6.9 (6.3-8.2) g/dL Albumin 4.1 (3.5-5.0) g/dL 05/26/22 05/26/22 Range/Units 17:21 17:21 WBC (3.8-10.6) k/uL RBC (3.80-5.40) m/uL Hgb (11.4-16.0) gm/dL Hct (34.0-46.0) % MCV (80.0-100.0) fL MCH (25.0-35.0) pg MCHC (31.0-37.0) g/dL RDW (11.5-15.5) % Plt Count (150-450) k/uL MPV Neutrophils % % Lymphocytes % % Monocytes % % Eosinophils % % Basophils % % Neutrophils # (1.3-7.7) k/uL Lymphocytes # (1.0-4.8) k/uL Monocytes # (0-1.0) k/uL Eosinophils # (0-0.7) k/uL Basophils # (0-0.2) k/uL Hypochromasia Macrocytosis PT (9.0-12.0) sec INR (<1.2) APTT (22.0-30.0) sec Sodium (137-145) mmol/L Potassium (3.5-5.1) mmol/L Chloride (98-107) mmol/L Carbon Dioxide (22-30) mmol/L Anion Gap mmol/L BUN (7-17) mg/dL Creatinine (0.52-1.04) mg/dL Est GFR (CKD-EPI)AfAm (>60 ml/min/1.73 sqM) Est GFR (CKD-EPI)NonAf (>60 ml/min/1.73 sqM) Glucose (74-99) mg/dL Calcium (8.4-10.2) mg/dL Total Bilirubin (0.2-1.3) mg/dL AST (14-36) U/L ALT (4-34) U/L Alkaline Phosphatase (38-126) U/L Troponin I 0.050 H* (0.000-0.034) ng/mL NT-Pro-B Natriuret Pep 7210 pg/mL Total Protein (6.3-8.2) g/dL Albumin (3.5-5.0) g/dL - EKG Data -: EKG Interpreted by Me EKG Comments: 12-lead Electrocardiogram Interpretation Note EKG was reviewed and interpreted by myself. 12-lead ECG performed at 1711 is interpreted by me as revealing normal sinus rhythm with bifascicular block /right bundle-branch block at a rate of 85 beats per minute. Indeterminate axis. LA interval is 149 ms, QRS duration is 141 ms, QTc is 483 ms. There are chronic T wave inversions in lead aVL. There were no acute ST or T wave abnormalities to suggest myocardial ischemia or injury. R wave progression across the precordium was delayed. By my interpretation this EKG is non- diagnostic for acute ischemia. Compared with EKG from April 2022, no significant change. Disposition Clinical Impression: CHF exacerbation, Hypoxia, Elevated troponin Disposition: ADMITTED IP TO THIS HOSP Condition: Stable Time of Disposition: 20:00
[2022-05-26] MEDS ORDERED: METOCLOPRAMIDE 5 MG TAB PO PRN (20:26)
[2022-05-26] MEDS: CYCLOBENZAPRINE 10 MG TAB PO SCH (20:56)
[2022-05-26] MEDS: PANTOPRAZOLE 40 MG TABLET PO SCH (20:56)
[2022-05-26] MEDS: CLOPIDOGREL 75 MG TAB PO SCH (20:56)
[2022-05-26] MEDS: TEMAZEPAM 7.5 MG CAP PO SCH (20:56)
[2022-05-26] MEDS: busPIRone HCl 10 MG TAB PO SCH (20:56)
[2022-05-26] MEDS: ATORVASTATIN 40 MG TAB PO SCH (20:56)
[2022-05-26] MEDS ORDERED: FUROSEMIDE 10 MG/ML 4 ML VIAL IV SCH (21:00)
[2022-05-26] MEDS: Insulin Aspart (For Pump) 100 UNIT/ML VIAL SQ-PUMP SCH (21:01)
[2022-05-26] MEDS: MIDODRINE 5 MG TAB PO SCH (21:01)
[2022-05-27 02:25] LABS: Basophils % (A) 0 %; Eosinophils # (A) 0.1 k/uL (0-0.7); Eosinophils % (A) 1 %; HCT 43.2 % (34.0-46.0); HGB 14.2 gm/dL (11.4-16.0); Hypochromasia Moderate; Lymphocytes # (A) 0.8 k/uL (1.0-4.8); Lymphocytes % (A) 16 %; MCH 34.8 pg (25.0-35.0); MCHC 32.7 g/dL (31.0-37.0); MCV 106.5 fL (80.0-100.0); Macrocytosis Moderate; Mean Platelet Volume 8.6; Monocytes # (A) 0.5 k/uL (0-1.0); Monocytes % (A) 10 %; Neutrophils # (A) 3.6 k/uL (1.3-7.7); Neutrophils % (A) 70 %; Platelet Count 167 k/uL (150-450); RBC 4.06 m/uL (3.80-5.40); RDW 14.4 % (11.5-15.5); WBC 5.2 k/uL (3.8-10.6)
[2022-05-27 02:46] LABS: Calcium 8.2 mg/dL (8.4-10.2); Potassium 3.8 mmol/L (3.5-5.1)
[2022-05-27] MEDS: ASPIRIN 81 MG PO SCH (07:55)
[2022-05-27] MEDS: FUROSEMIDE 10 MG/ML 4 ML VIAL IV SCH ×2 (07:55→21:13)
[2022-05-27] MEDS: HEPARIN SODIUM,PORCINE/PF 5,000 UNIT/0.5 ML SYRINGE SQ SCH ×4 (07:55→23:29)
[2022-05-27] MEDS: CYCLOBENZAPRINE 10 MG TAB PO SCH ×2 (07:55→21:13)
[2022-05-27] MEDS: ISOSORBIDE MONONITRATE ER 30 MG TAB.ER.24H PO SCH (07:55)
[2022-05-27] MEDS: LEVOTHYROXINE 100 MCG TAB PO SCH (07:55)
[2022-05-27] MEDS: busPIRone HCl 10 MG TAB PO SCH ×2 (07:55→21:13)
[2022-05-27] MEDS: POTASSIUM CHLORIDE ER 20 MEQ TAB.ER PO SCH (07:55)
[2022-05-27] MEDS: MIDODRINE 5 MG TAB PO SCH ×3 (07:56→21:13)
[2022-05-27] MEDS: MONTELUKAST 10 MG TAB PO SCH (07:56)
[2022-05-27] MEDS ORDERED: BUMETANIDE 1 MG TAB PO SCH (09:00)
--- NOTE | 2022-05-27 13:22 | P.HPIM ---
History of Present Illness H&P Date: 05/27/22 History of present illness: Patient is a 66-year-old lady with a known history of chronic CHF, history of AICD placement, coronary artery disease status post CABG and stent placement, diabetes type 2 on insulin pump, Maksim's disease, anxiety/depression prior history of smoking was brought to the hospital because of worsening shortness of breath. Patient has been complaining of shortness of breath on exertion and also complaining of swelling of feet. According to patient unable to walk more than 10 steps. Also complaining of orthopnea. Denies any PND. 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 Chest x-ray showed pulmonary interstitial edema. Patient was started on IV Lasix and was admitted for further evaluation and treatment REVIEW OF SYSTEMS: CONSTITUTIONAL: No fever, no malaise, no fatigue. HEENT: No recent visual problems or hearing problems. Denied any sore throat. CARDIOVASCULAR: As mentioned in HPI PULMONARY: As mentioned in HPI GASTROINTESTINAL: No diarrhea, no nausea, no vomiting, no abdominal pain. NEUROLOGICAL: No headaches, no weakness, no numbness. HEMATOLOGICAL: Denies any bleeding or petechiae. GENITOURINARY: Denies any burning micturition, frequency, or urgency. MUSCULOSKELETAL/RHEUMATOLOGICAL: Denies any joint pain, swelling, or any muscle pain. ENDOCRINE: Denies any polyuria or polydipsia. The rest of the 14-point review of systems is negative. PHYSICAL EXAMINATION: GENERAL: The patient is alert and oriented x3, not in any acute distress. Well developed, well nourished. HEENT: Pupils are round and equally reacting to light. EOMI. No scleral icterus. No conjunctival pallor. Normocephalic, atraumatic. No pharyngeal erythema. No thyromegaly. CARDIOVASCULAR: S1 and S2 present. No murmurs, rubs, or gallops. PULMONARY: good Air entry bilaterally, bilateral crackles audible ABDOMEN: Soft, nontender, nondistended, normoactive bowel sounds. No palpable organomegaly. MUSCULOSKELETAL: No joint swelling or deformity. EXTREMITIES: 2+ pitting edema in lower extremities bilaterally NEUROLOGICAL: Gross neurological examination did not reveal any focal deficits. SKIN: No rashes. Assessment and plan Hyponatremia Acute on chronic systolic heart failure Coronary artery disease with PCI SVG to right PDA, December 2020 and additional stenting in February 2021, details unknown History of CABG x 2001 Ischemic cardiomyopathy, status post AICD Hypertension Hyperlipidemia Pulmonary fibrosis Diabetes mellitus Severe pulmonary hypertension Plan; Monitor vital signs Monitor CBC Strict I's and O's Daily weights Monitor renal functions Continue IV Lasix 40 mg twice a day Resume home meds Consult cardiology Past Medical History Past Medical History: Coronary Artery Disease (CAD), Heart Failure, Diabetes Mellitus Additional Past Medical History / Comment(s): SEE H & P FROM DR. OTTO. Pulmonary Fribrosis,raynaud's IDDM. Last Myocardial Infarction Date:: 2001 History of Any Multi-Drug Resistant Organisms: None Reported Past Surgical History: AICD, Section, Coronary Bypass/CABG, Heart Cat heterization, Heart Catheterization With Stent, Hysterectomy, Pacemaker, Tubal Ligation Additional Past Surgical History / Comment(s): cataract surgery, hand surgery, recent heart stent 02/12, Heart stent 03/07/2021 Past Anesthesia/Blood Transfusion Reactions: Postoperative Nausea & Vomiting (PONV) Date of Last Stent Placement:: 03/07/2021 Type of Cardiac Device: Permanent Pacemaker, AICD Device Placement Date:: [employer] Past Psychological History: Anxiety, Depression Smoking Status: Former smoker Past Alcohol Use History: Rare Past Drug Use History: None Reported - Past Family History Father Family Medical History: Deep Vein Thrombosis (DVT), Myocardial Infarction ([place]) Additional Family Medical History / Comment(s): Open heart surgery. Brother(s) Additional Family Medical History / Comment(s): Heart surgery. Mother Family Medical History: No Reported History Medications and Allergies Home Medications Medication Instructions Recorded Confirmed Type Omeprazole [PriLOSEC] 40 mg PO HS 02/02/14 05/26/22 History Aspirin EC [Ecotrin Low Dose] 81 mg PO DAILY 11/12/20 05/26/22 History Cholecalciferol [Vitamin D3 (25 50 mcg PO DAILY 11/12/20 05/26/22 History Mcg = 1000 Iu)] Insulin Aspart (For Pump) [NovoLOG 0.01 unit SQ-PUMP CONTINUOUS 11/12/20 05/26/22 History (For Pump)] Levothyroxine Sodium [Synthroid] 100 mcg PO MOTUWETHFRSA 11/12/20 05/26/22 Hi story Montelukast [Singulair] 10 mg PO DAILY 11/12/20 05/26/22 History Multivit with Calcium,Iron,Min 1 tab PO DAILY 11/12/20 05/26/22 History [Women's Multivitamin] Cyclobenzaprine [Flexeril] 10 mg PO BID 01/13/21 05/26/22 History Metoclopramide HCl [Reglan] 5 mg PO TID PRN 01/13/21 05/26/22 History Rosuvastatin [Crestor] 20 mg PO HS 10/03/21 05/26/22 History LORazepam [Ativan] 0.5 mg PO DAILY@1200 04/28/22 05/26/22 History Midodrine [ProAmatine] 5 mg PO TID 04/28/22 05/26/22 History Ubidecarenone [Coenzyme Q10] 200 mg PO DAILY 04/28/22 05/26/22 History busPIRone HCl [Buspar] 10 mg PO BID #0 05/08/22 05/26/22 Rx Bumetanide [BUMEX] 4 mg PO BID@0900,1400 05/15/22 05/26/22 History Clopidogrel [Plavix] 75 mg PO HS 05/15/22 05/26/22 History Isosorbide Mononitrate ER [Imdur] 30 mg PO DAILY 05/15/22 05/26/22 History Temazepam 7.5 mg PO HS 05/15/22 05/26/22 History Nitroglycerin Sl Tabs [Nitrostat] 0.4 mg SL Q5M PRN 05/26/22 05/26/22 History Potassium Chloride [Potassium 20 meq PO DAILY 05/26/22 05/26/22 History Chloride ER] Allergies Allergy/AdvReac Type Severity Reaction Status Date / Time adhesive Allergy Unknown Verified 05/26/22 17:05 latex Allergy Itching Verified 05/26/22 17:05 amoxicillin [From Augmentin] AdvReac Nausea & Verified 05/26/22 17:05 Vomiting clarithromycin [From Biaxin] AdvReac Nausea & Verified 05/26/22 17:05 Vomiting clavulanic acid AdvReac Nausea & Verified 05/26/22 17:05 [From Augmentin] Vomiting codeine AdvReac Nausea & Verified 05/26/22 17:05 Vomiting nitrofurantoin AdvReac Nausea & Verified 05/26/22 17:05 [From Macrobid] Vomiting Penicillins AdvReac Nausea & Verified 05/26/22 17:05 Vomiting Physical Exam Vitals: Vital Signs Temp Pulse Pulse Resp BP BP Pulse Ox 05/27/22 08:04 74 18 128/83 95 05/27/22 04:00 79 18 120/78 93 L 05/27/22 02:00 87 18 05/27/22 00:00 87 18 115/82 99 05/26/22 20:47 87 18 115/82 99 05/26/22 20:40 78 18 125/83 100 05/26/22 19:14 81 18 93 L 05/26/22 16:59 98.4 F 86 22 109/74 93 L Intake and Output 05/26/22 05/27/22 05/27/22 22:59 06:59 14:59 Other: Voiding Method Toilet # Voids 1 Weight 72.575 kg Results CBC & Chem 7: 05/27/22 02:05 05/27/22 02:05 Labs: Abnormal Lab Results - Last 24 Hours (Table) 05/26/22 05/26/22 05/26/22 Range/Units 17:21 17:21 17:21 MCV 105.9 H (80.0-100.0) fL MCH 35.6 H (25.0-35.0) pg Lymphocytes # 0.9 L (1.0-4.8) k/uL PT 12.4 H (9.0-12.0) sec INR 1.2 H (<1.2) Sodium 129 L (137-145) mmol/L Chloride 91 L (98-107) mmol/L BUN 23 H (7-17) mg/dL Glucose 151 H (74-99) mg/dL Calcium (8.4-10.2) mg/dL AST 48 H (14-36) U/L Alkaline Phosphatase 128 H (38-126) U/L Troponin I (0.000-0.034) ng/mL 05/26/22 05/26/22 05/27/22 Range/Units 17:21 22:43 02:05 MCV (80.0-100.0) fL MCH (25.0-35.0) pg Lymphocytes # (1.0-4.8) k/uL PT (9.0-12.0) sec INR (<1.2) Sodium (137-145) mmol/L Chloride (98-107) mmol/L BUN (7-17) mg/dL Glucose (74-99) mg/dL Calcium (8.4-10.2) mg/dL AST (14-36) U/L Alkaline Phosphatase (38-126) U/L Troponin I 0.050 H* 0.044 H* 0.043 H* (0.000-0.034) ng/mL 05/27/22 05/27/22 Range/Units 02:05 02:05 MCV 106.5 H (80.0-100.0) fL MCH (25.0-35.0) pg Lymphocytes # 0.8 L (1.0-4.8) k/uL PT (9.0-12.0) sec INR (<1.2) Sodium 129 L (137-145) mmol/L Chloride 90 L (98-107) mmol/L BUN 23 H (7-17) mg/dL Glucose 246 H (74-99) mg/dL Calcium 8.2 L (8.4-10.2) mg/dL AST (14-36) U/L Alkaline Phosphatase (38-126) U/L Troponin I (0.000-0.034) ng/mL Thrombosis Risk Factor Assmnt - Choose All That Apply Any of the Below Risk Factors Present?: Yes Each Factor Represents 1 point: Obesity (BMI >25) Other Risk Factors: Yes Each Risk Factor Represents 2 Points: Age 61-74 years Thrombosis Risk Factor Assessment Total Risk Factor Score: 3 Thrombosis Risk Factor Assessment Level: Moderate Risk
[2022-05-27] MEDS: LORazepam 0.5 MG TAB PO SCH (15:35)
[2022-05-27 16:40] LABS: Glucose,Whole Blood 145 mg/dL (70-110)
[2022-05-27] MEDS: NON FORMULARY DRUG (Ubidecarenone [Coenzyme Q10] 200 MG Capsule) PO SCH (17:04)
--- NOTE | 2022-05-27 19:31 | CONS ---
CONSULTATION HISTORY OF PRESENT ILLNESS: Kymberly is a 66-year-old lady with history of coronary artery disease, status post CABG, status post prior angioplasty and the most recent cardiac catheterization by Dr. Kline about 3 weeks ago, who presents to the hospital complaining of worsening shortness of breath. She has a history of ischemic cardiomyopathy and has had an AICD done. She states that she had been becoming progressively short of breath, was in fact in the hospital 2 weeks ago. She has leg edema, PND, and orthopnea. A diagnosis of congestive heart failure had been made and she is currently being treated with IV Lasix. She was on oral Bumex at home which is going to be held. The patient underwent recent cardiac catheterization that revealed an occluded venous graft to diagonal with a 50% stenosis in the venous graft to PDA and patent ANTUNEZ to LAD with severe three- vessel coronary artery disease. An echocardiogram last month showed severe LV systolic dysfunction with severe pulmonary hypertension with an RVSP of 96. PAST MEDICAL HISTORY: Significant for coronary artery disease, status post CABG; ischemic cardiomyopathy; severe pulmonary hypertension and chronic systolic heart failure. MEDICATIONS: Are as documented and include: 1. Crestor. 2. Singulair. 3. Midodrine. 4. Synthroid. 5. . 6. Flexeril. 7. Bumex. 8. Aspirin. ALLERGIES: There are multiple drug allergies and they are charted. FAMILY HISTORY: Negative for premature coronary artery disease. SOCIAL HISTORY: Negative for current smoking, EtOH abuse, or drug abuse. REVIEW OF SYSTEMS: 14 out of 14 review of systems has been performed. Pertinents are as documented. PHYSICAL EXAMINATION: GENERAL: The patient is comfortable at rest. VITAL SIGNS: Heart rate is 74 beats per minute. Blood pressure is 128/82, respiratory rate is 18. NECK: There is no jugular venous distention. Carotid upstroke is normal. There is no bruit. CHEST: Reveals good air entry bilaterally. HEART: Reveals first and second heart sounds. No gallop. Has a systolic murmur at the left lower sternal border. ABDOMEN: Soft. EXTREMITIES: Did not reveal any edema. Peripheral pulses are felt. LABORATORY DATA: Labs show that the troponins are mildly elevated at 0.05, 0.04 and 0.04. Creatinine is normal. Hemoglobin is 14.2. BNP is elevated. ASSESSMENT AND PLAN: 1. Acute exacerbation of chronic systolic heart failure. 2. Coronary artery disease, status post bypass surgery. 3. Elevated troponin secondary to congestive heart failure. I will treat the patient with intravenous diuretics and adjust the medications based on the response. MARIAML / SARINAN: [id number] /
[2022-05-27 20:23] LABS: Glucose,Whole Blood 94 mg/dL (70-110)
[2022-05-27] MEDS: Insulin Aspart (For Pump) 100 UNIT/ML VIAL SQ-PUMP SCH (21:07)
[2022-05-27] MEDS: PANTOPRAZOLE 40 MG TABLET PO SCH (21:13)
[2022-05-27] MEDS: ATORVASTATIN 40 MG TAB PO SCH (21:13)
[2022-05-27] MEDS: CLOPIDOGREL 75 MG TAB PO SCH (21:13)
[2022-05-27] MEDS: TEMAZEPAM 7.5 MG CAP PO SCH (21:13)
[2022-05-28 06:11] LABS: Glucose,Whole Blood 195 mg/dL (70-110)
[2022-05-28] MEDS: ASPIRIN 81 MG PO SCH (08:27)
[2022-05-28] MEDS: POTASSIUM CHLORIDE ER 20 MEQ TAB.ER PO SCH (08:27)
[2022-05-28] MEDS: HEPARIN SODIUM,PORCINE/PF 5,000 UNIT/0.5 ML SYRINGE SQ SCH ×3 (08:27→22:55)
[2022-05-28] MEDS: busPIRone HCl 10 MG TAB PO SCH ×2 (08:28→20:36)
[2022-05-28] MEDS: CYCLOBENZAPRINE 10 MG TAB PO SCH ×2 (08:28→20:37)
[2022-05-28] MEDS: FUROSEMIDE 10 MG/ML 4 ML VIAL IV SCH ×3 (08:28→21:53)
[2022-05-28] MEDS: ISOSORBIDE MONONITRATE ER 30 MG TAB.ER.24H PO SCH (08:28)
[2022-05-28] MEDS: MONTELUKAST 10 MG TAB PO SCH (08:28)
[2022-05-28] MEDS: MIDODRINE 5 MG TAB PO SCH ×3 (11:16→20:37)
[2022-05-28] MEDS: NON FORMULARY DRUG (Ubidecarenone [Coenzyme Q10] 200 MG Capsule) PO SCH (11:16)
[2022-05-28] MEDS: LORazepam 0.5 MG TAB PO SCH (11:42)
[2022-05-28 11:51] LABS: Glucose,Whole Blood 172 mg/dL (70-110)
--- NOTE | 2022-05-28 12:46 | P.NPCON ---
History of Present Illness - Reason for Consult hyponatremia - History of Present Illness patient is a 66-year-old female with history of chronic diastolic CHF and chronic hyponatremia. Patient is admitted to the hospital with complaints of increased shortness of breath and lower extremity swelling which did not respond to increased oral diuretics as outpatient. Patient is maintained on IV Lasix since yesterday. She has had good diuresisand states that she is feeling much better. Serum sodium at 129. Serum creatinine at 0.8 mg/dL No complaints of fever chills nausea vomiting abdominal pain or diarrhea. Review of Systems as per HPI Past Medical History Past Medical History: Coronary Artery Disease (CAD), Heart Failure, Diabetes Mellitus Additional Past Medical History / Comment(s): SEE H & P FROM DR. OTTO. Pulmonary Fribrosis,raynaud's IDDM. Last Myocardial Infarction Date:: 2001 History of Any Multi-Drug Resistant Organisms: None Reported Past Surgical History: AICD, Section, Coronary Bypass/CABG, Heart Julianna terization, Heart Catheterization With Stent, Hysterectomy, Pacemaker, Tubal Ligation Additional Past Surgical History / Comment(s): cataract surgery, hand surgery, recent heart stent 02/12, Heart stent 03/07/2021 Past Anesthesia/Blood Transfusion Reactions: Postoperative Nausea & Vomiting (PONV) Date of Last Stent Placement:: 03/07/2021 Type of Cardiac Device: Permanent Pacemaker, AICD Device Placement Date:: Evochatronic Past Psychological History: Anxiety, Depression Smoking Status: Former smoker Past Alcohol Use History: Rare Past Drug Use History: None Reported - Past Family History Father Family Medical History: Deep Vein Thrombosis (DVT), Myocardial Infarction ([place]) Additional Family Medical History / Comment(s): Open heart surgery. Brother(s) Additional Family Medical History / Comment(s): Heart surgery. Mother Family Medical History: No Reported History Medications and Allergies Home Medications Medication Instructions Recorded Confirmed Type Omeprazole [PriLOSEC] 40 mg PO HS 02/02/14 05/26/22 History Aspirin EC [Ecotrin Low Dose] 81 mg PO DAILY 11/12/20 05/26/22 History Cholecalciferol [Vitamin D3 (25 50 mcg PO DAILY 11/12/20 05/26/22 History Mcg = 1000 Iu)] Insulin Aspart (For Pump) [NovoLOG 0.01 unit SQ-PUMP CONTINUOUS 11/12/20 05/26/22 History (For Pump)] Levothyroxine Sodium [Synthroid] 100 mcg PO MOTUWETHFRSA 11/12/20 05/26/22 Hist ory Montelukast [Singulair] 10 mg PO DAILY 11/12/20 05/26/22 History Multivit with Calcium,Iron,Min 1 tab PO DAILY 11/12/20 05/26/22 History [Women's Multivitamin] Cyclobenzaprine [Flexeril] 10 mg PO BID 01/13/21 05/26/22 History Metoclopramide HCl [Reglan] 5 mg PO TID PRN 01/13/21 05/26/22 History Rosuvastatin [Crestor] 20 mg PO HS 10/03/21 05/26/22 History LORazepam [Ativan] 0.5 mg PO DAILY@1200 04/28/22 05/26/22 History Midodrine [ProAmatine] 5 mg PO TID 04/28/22 05/26/22 History Ubidecarenone [Coenzyme Q10] 200 mg PO DAILY 04/28/22 05/26/22 History busPIRone HCl [Buspar] 10 mg PO BID #0 05/08/22 05/26/22 Rx Bumetanide [BUMEX] 4 mg PO BID@0900,1400 05/15/22 05/26/22 History Clopidogrel [Plavix] 75 mg PO HS 05/15/22 05/26/22 History Isosorbide Mononitrate ER [Imdur] 30 mg PO DAILY 05/15/22 05/26/22 History Temazepam 7.5 mg PO HS 05/15/22 05/26/22 History Nitroglycerin Sl Tabs [Nitrostat] 0.4 mg SL Q5M PRN 05/26/22 05/26/22 History Potassium Chloride [Potassium 20 meq PO DAILY 05/26/22 05/26/22 History Chloride ER] Allergies Allergy/AdvReac Type Severity Reaction Status Date / Time adhesive Allergy Unknown Verified 05/26/22 17:05 latex Allergy Itching Verified 05/26/22 17:05 amoxicillin [From Augmentin] AdvReac Nausea & Verified 05/26/22 17:05 Vomiting clarithromycin [From Biaxin] AdvReac Nausea & Verified 05/26/22 17:05 Vomiting clavulanic acid AdvReac Nausea & Verified 05/26/22 17:05 [From Augmentin] Vomiting codeine AdvReac Nausea & Verified 05/26/22 17:05 Vomiting nitrofurantoin AdvReac Nausea & Verified 05/26/22 17:05 [From Macrobid] Vomiting Penicillins AdvReac Nausea & Verified 05/26/22 17:05 Vomiting Physical Exam Vitals: Vital Signs Temp Pulse Resp BP Pulse Ox 05/28/22 08:00 97.9 F 78 18 119/75 99 05/28/22 04:00 97.9 F 78 18 120/76 99 05/28/22 01:04 71 18 05/27/22 23:31 97.4 F L 71 18 115/71 96 05/27/22 20:00 97.8 F 72 18 112/65 97 05/27/22 16:00 98.1 F 74 20 108/67 96 05/27/22 14:00 74 18 Intake and Output 05/27/22 05/28/22 05/28/22 22:59 06:59 14:59 Other: Voiding Method Toilet Toilet Toilet # Voids 1 1 Weight 71.1 kg awake, comfortable, no acute distress Examination of the heart S1 and S2 Examination lungs bilateral breath sounds are heard, basal crackles are heard [employer] exam grossly intact, Abdomen is soft nontender Examination lower extremities shows edematrace bilaterally. Results - Lab Results Most recent lab results Calcium 8.2 mg/dL (8.4-10.2) L 05/27/22 02:05 05/27/22 02:05 05/27/22 02:05 Assessment and Plan Assessment: 1. Hypervolemic hyponatremia currently being diuresed 2. Volume overload currently improved 3. Acute on top of chronic systolic CHF 4. Coronary artery disease with history of coronary artery bypass surgery 5. Cardiomyopathy with ejection fraction at 25-30% with global hypokinesis on echocardiogram done on 05/05/2022. Severe pulmonary hypertension and severe tricuspid regurgitation also noted Plan: continue with current dose of IV Lasix [place] 1 Repeat labs in a.m. Maintain salt and fluid restriction Thank you for the consultation. We will continue to follow the patient with you during her hospitalization
--- NOTE | 2022-05-28 13:07 | P.PN ---
Subjective Progress Note Date: 05/28/22 Patient is a 66-year-old lady with a known history of chronic CHF, history of AICD placement, coronary artery disease status post CABG and stent placement, diabetes type 2 on insulin pump, Maksim's disease, anxiety/depression prior history of smoking was brought to the hospital because of worsening shortness of breath. Patient has been complaining of shortness of breath on exertion and also complaining of swelling of feet. According to patient unable to walk more than 10 steps. Also complaining of orthopnea. Denies any PND. 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 Chest x-ray showed pulmonary interstitial edema. Patient was started on IV Lasix and was admitted for further evaluation and treatment 05/28. Patient seen and examined. States swelling of legs is improved. States shortness of breath is also improving. REVIEW OF SYSTEMS: CONSTITUTIONAL: No fever, no malaise,. CARDIOVASCULAR: No chest pain, no palpitations, no syncope. PULMONARY: As mentioned above GASTROINTESTINAL: No diarrhea, no nausea, no vomiting, no abdominal pain. NEUROLOGICAL: No headaches, no weakness, PHYSICAL EXAMINATION: GENERAL: The patient is alert and oriented x3, not in any acute distress. Well developed, well nourished. HEENT: Pupils are round and equally reacting to light. EOMI. No scleral icterus. No conjunctival pallor. Normocephalic, atraumatic. No pharyngeal erythema. No thyromegaly. CARDIOVASCULAR: S1 and S2 present. No murmurs, rubs, or gallops. PULMONARY: Chest is clear to auscultation, no wheezing or crackles. ABDOMEN: Soft, nontender, nondistended, normoactive bowel sounds. No palpable organomegaly. MUSCULOSKELETAL: No joint swelling or deformity. EXTREMITIES: 1+ pitting edema lower extremities bilaterally NEUROLOGICAL: Gross neurological examination did not reveal any focal deficits. SKIN: No rashes. Assessment and plan Hyponatremia Acute on chronic systolic heart failure Coronary artery disease with PCI SVG to right PDA, December 2020 and additional stenting in February 2021, details unknown History of CABG x 2001 Ischemic cardiomyopathy, status post AICD Hypertension Hyperlipidemia Pulmonary fibrosis Diabetes mellitus Severe pulmonary hypertension Plan; Monitor vital signs Monitor CBC Strict I's and O's Daily weights Monitor renal functions Continue IV Lasix 40 mg twice a day Follow-up in nephrology recommendations Follow-up on cardiology recommendations DVT prophylaxis: Objective - Vital Signs Vital signs: Vital Signs Temp 97.9 F 05/28/22 08:00 Pulse 78 05/28/22 08:00 Resp 18 05/28/22 08:00 BP 119/75 05/28/22 08:00 Pulse Ox 99 05/28/22 08:00 FiO2 Intake & Output 05/27/22 05/28/22 05/28/22 18:59 06:59 18:59 Weight 71.1 kg Other: Voiding Method Toilet Toilet Toilet # Voids 1 1 - Labs CBC & Chem 7: 05/27/22 02:05 05/27/22 02:05 Labs: Abnormal Lab Results - Last 24 Hours (Table) 05/27/22 05/28/22 05/28/22 Range/Units 16:39 06:10 11:49 POC Glucose (mg/dL) 145 H 195 H 172 H (70-110) mg/dL
--- NOTE | 2022-05-28 13:41 | P.PN ---
Subjective Progress Note Date: 05/28/22 Patient is seen resting comfortably in bed in no signs of acute distress. She reports her shortness of breath is greatly improved. She still has mild dyspnea with activity. On physical exam there are fine crackles noted in the bases. BUN is 23 creatinine is 0.83. Will continue with IV Lasix 40 mg twice a day for one more day. And will transition to by mouth Lasix tomorrow Objective - Vital Signs Vital signs: Vital Signs Temp 97.9 F 05/28/22 08:00 Pulse 78 05/28/22 08:00 Resp 18 05/28/22 08:00 BP 119/75 05/28/22 08:00 Pulse Ox 99 05/28/22 08:00 FiO2 Intake & Output 05/27/22 05/28/22 05/28/22 18:59 06:59 18:59 Weight 71.1 kg Other: Voiding Method Toilet Toilet Toilet # Voids 1 1 - Exam PHYSICAL EXAM: VITAL SIGNS: Reviewed. GENERAL: Well-developed in no acute distress. HEENT: Head is normocephalic. Pupils are equal, round. Sclerae anicteric. Mucous membranes of the mouth are moist. NECK: Supple. No JVD or thyromegaly RESPIRATORY: Respirations even and unlabored. Lungs diminished to auscultation bilaterally. CARDIO: Regular rate and rhythm. S1 and S2 heard. No murmur or gallops. EXTREMITIES: Normal range of motion. No clubbing or cyanosis. Peripheral pulses intact. Negative for bilateral lower extremity edema NEURO: Orientated to person, time, mood is appropriate - Labs CBC & Chem 7: 05/27/22 02:05 05/27/22 02:05 Labs: Abnormal Lab Results - Last 24 Hours (Table) 05/27/22 05/28/22 05/28/22 Range/Units 16:39 06:10 11:49 POC Glucose (mg/dL) 145 H 195 H 172 H (70-110) mg/dL Assessment and Plan Assessment: Acute exacerbation of chronic systolic heart failure Coronary artery disease, status post bypass surgery Elevated troponin secondary to congestive heart failure Plan: Continue with IV Lasix for one more day, transitioned to oral Lasix tomorrow Continue to follow kidney function Further recommendations based on clinical course The above impression and plan of care have been discussed and directed by the signing physician. Rosemarie Velasquez, nurse practitioner, acting as scribe for signing physician.
[2022-05-28 16:35] LABS: Glucose,Whole Blood 235 mg/dL (70-110)
[2022-05-28] MEDS ORDERED: TOLVAPTAN 15 MG 1/2 TABLET PO ONE (18:00)
[2022-05-28 19:44] LABS: Glucose,Whole Blood 202 mg/dL (70-110)
[2022-05-28 20:14] LABS: Appearance,Urine Cloudy (Clear); Bacteria,Urine Rare /hpf; Bilirubin,Urine Negative (Negative); Blood,Urine Negative (Negative); Color,Urine Yellow; Glucose,Urine (UA) Negative (Negative); Hyaline Casts,Urine 72 /lpf (0-2); Ketones,Urine Negative (Negative); Leukocyte Esterase,Urine Large (Negative); Mucus,Urine Rare /hpf; Nitrite,Urine Negative (Negative); PH, Urine 5.5 (5.0-8.0); Protein,Urine 2+ (Negative); RBC,Urine 2 /hpf (0-5); Specific Gravity,Urine 1.016 (1.001-1.035); Squamous Epithelial Cell,Urine 2 /hpf (0-4); Urobilinogen,Urine <2.0 mg/dL (<2.0); WBC,Urine 37 /hpf (0-5)
[2022-05-28] MEDS: ATORVASTATIN 40 MG TAB PO SCH (20:37)
[2022-05-28] MEDS: PANTOPRAZOLE 40 MG TABLET PO SCH (20:37)
[2022-05-28] MEDS: TEMAZEPAM 7.5 MG CAP PO SCH (20:37)
[2022-05-28] MEDS: CLOPIDOGREL 75 MG TAB PO SCH (20:37)
[2022-05-28] MEDS: Insulin Aspart (For Pump) 100 UNIT/ML VIAL SQ-PUMP SCH (22:50)
[2022-05-29] MEDS: FUROSEMIDE 10 MG/ML 4 ML VIAL IV SCH ×2 (04:58→18:02)
[2022-05-29] MEDS: LEVOTHYROXINE 100 MCG TAB PO SCH (04:58)
[2022-05-29 05:56] LABS: Glucose,Whole Blood 211 mg/dL (70-110)
--- NOTE | 2022-05-29 10:05 | P.PN ---
Subjective Patient is seen in follow-up for hyponatremia. Sodium level 126 yesterday and she did receive a dose of Samsca. Also on IV Lasix. Denies chest pain or shortness of breath. Vital signs are stable. General: Awake. No acute distress. HEENT: Head exam is unremarkable. LUNGS: Breath sounds decreased. HEART: Rate and Rhythm are regular. ABDOMEN: Soft, no distention. EXTREMITITES: No edema. Objective - Vital Signs Vital signs: Vital Signs Temp 97.7 F 05/29/22 08:00 Pulse 77 05/29/22 08:00 Resp 19 05/29/22 08:00 BP 114/74 05/29/22 08:00 Pulse Ox 99 05/29/22 04:00 FiO2 Intake & Output 05/28/22 05/29/22 05/29/22 18:59 06:59 18:59 Intake Total 120 Output Total 1800 Balance -1800 120 Weight 71.5 kg Intake: Oral 120 Output: Urine 1800 Other: Voiding Method Toilet Toilet # Voids 1 - Labs CBC & Chem 7: 05/27/22 02:05 05/28/22 15:33 Labs: Abnormal Lab Results - Last 24 Hours (Table) 05/28/22 05/28/22 05/28/22 Range/Units 11:49 15:33 16:34 Sodium 126 L (137-145) mmol/L POC Glucose (mg/dL) 172 H 235 H (70-110) mg/dL Urine Appearance (Clear) Urine Protein (Negative) Ur Leukocyte Esterase (Negative) Urine WBC (0-5) /hpf Urine WBC Clumps (None) /hpf Urine Bacteria (None) /hpf Hyaline Casts (0-2) /lpf Urine Mucus (None) /hpf 05/28/22 05/28/22 05/29/22 Range/Units 17:49 19:42 05:51 Sodium (137-145) mmol/L POC Glucose (mg/dL) 202 H 211 H (70-110) mg/dL Urine Appearance Cloudy H (Clear) Urine Protein 2+ H (Negative) Ur Leukocyte Esterase Large H (Negative) Urine WBC 37 H (0-5) /hpf Urine WBC Clumps Few H (None) /hpf Urine Bacteria Rare H (None) /hpf Hyaline Casts 72 H (0-2) /lpf Urine Mucus Rare H (None) /hpf Microbiology - Last 24 Hours (Table) 05/28/22 17:49 Urine Culture - Preliminary Urine,Voided Assessment and Plan Plan: Assessment: 1. Hypervolemic hyponatremia. 2. Volume overload. Improving with diuresis. 3. Acute on chronic systolic CHF with ejection fraction of 25-30% with severe tricuspid regurgitation and pulmonary hypertension. 4. Diabetes mellitus. 5. Ischemic cardiomyopathy status post AICD. 6. Coronary artery disease. Plan: Maintain IV Lasix. Status post [facility] yesterday. Add fluid restriction. Maintain low salt diet. Morning labs pending.
[2022-05-29] MEDS: ASPIRIN 81 MG PO SCH (10:06)
[2022-05-29] MEDS: HEPARIN SODIUM,PORCINE/PF 5,000 UNIT/0.5 ML SYRINGE SQ SCH ×3 (10:06→23:35)
[2022-05-29] MEDS: busPIRone HCl 10 MG TAB PO SCH ×2 (10:07→20:16)
[2022-05-29] MEDS: CYCLOBENZAPRINE 10 MG TAB PO SCH ×2 (10:07→20:16)
[2022-05-29] MEDS: MIDODRINE 5 MG TAB PO SCH ×3 (10:07→23:39)
[2022-05-29] MEDS: MONTELUKAST 10 MG TAB PO SCH (10:07)
[2022-05-29] MEDS: POTASSIUM CHLORIDE ER 20 MEQ TAB.ER PO SCH (10:07)
[2022-05-29] MEDS: ISOSORBIDE MONONITRATE ER 30 MG TAB.ER.24H PO SCH (10:08)
[2022-05-29] MEDS: NON FORMULARY DRUG (Ubidecarenone [Coenzyme Q10] 200 MG Capsule) PO SCH (10:08)
[2022-05-29 11:48] LABS: ALT 28 U/L (4-34); AST 46 U/L (14-36); African American GFR (CKD) >90 (>60 ml/min/1.73 sqM); Albumin 3.8 g/dL (3.5-5.0); Alkaline Phosphatase 102 U/L (38-126); Anion Gap 6 mmol/L; Blood Urea Nitrogen 17 mg/dL (7-17); Calcium 8.4 mg/dL (8.4-10.2); Carbon Dioxide 32 mmol/L (22-30); Chloride 94 mmol/L (98-107); Glucose 79 mg/dL (74-99); Non-African American GFR(CKD) 83 (>60 ml/min/1.73 sqM); Potassium 4.1 mmol/L (3.5-5.1); Sodium 132 mmol/L (137-145); Total Bilirubin 1.1 mg/dL (0.2-1.3); Total Protein 6.8 g/dL (6.3-8.2)
[2022-05-29 11:55] LABS: Glucose,Whole Blood 114 mg/dL (70-110)
[2022-05-29 12:32] LABS: Basophils % (A) 1 %; Eosinophils # (A) 0.1 k/uL (0-0.7); Eosinophils % (A) 1 %; HCT 44.1 % (34.0-46.0); Hypochromasia Moderate; Lymphocytes # (A) 0.6 k/uL (1.0-4.8); Lymphocytes % (A) 10 %; MCH 34.3 pg (25.0-35.0); MCHC 31.7 g/dL (31.0-37.0); MCV 108.2 fL (80.0-100.0); Macrocytosis Marked; Mean Platelet Volume 8.7; Monocytes # (A) 0.5 k/uL (0-1.0); Monocytes % (A) 8 %; Neutrophils # (A) 4.8 k/uL (1.3-7.7); Neutrophils % (A) 77 %; Platelet Count 172 k/uL (150-450); RBC 4.07 m/uL (3.80-5.40); RDW 14.8 % (11.5-15.5); WBC 6.2 k/uL (3.8-10.6)
--- NOTE | 2022-05-29 12:41 | P.PN ---
Subjective This is a 66-year-old female with a past medical history of coronary artery disease with previous CABG x 4 in 2001 and PCI 01/12 and 03/15, ischemic c ardiomyopathy, AICD implantation, hypertension, hyperlipidemia, ischemic cardiomyopathy and diabetes on insulin pump. Patient follows with Dr. Ambriz. We have been asked to see in consultation for congestive heart failure. Patient presents emergency department with worsening shortness of breath and lower extremity edema. Patient was started on IV Lasix. She recently underwent cardiac catheterization on 05/06/2022 concerning for possible NSTEMI, [place] CAD as described above with 50-60% left main stenosis, 100% proximal circumflex, 100% mid LAD, 100% proximal RCA stenosis, Occluded SVG to diagonal, 50-60% stenosis of SVG to PDA and patent ANTUNEZ to LAD. Per Cath report Patient with likely SVG to diagonal as culprit. Given no ongoing angina symptoms with 100% occlusion at site of previous stenting with additional TAYLOR would recommend medical therapy. SVG to PDA appears to have 50- 60% proximal stenosis however higher risk of no reflow with older graft and would treat medically. Echocardiogram revealed EF of 2530 percent, severe pulmonary hypertension, severe tricuspid regurgitation, RVSP of 95 mmHg. 05/29/2022 Patient seen and examined at bedside, no acute distress. Continues to have Solu-Medrol lower extremity edema and some mild shortness of breath. Sodium yesterday was 126. Repeat sodium was 132 patient was given Samsca yesterday. Continues to be on IV Lasix. GENERAL: In no acute distress. NECK: Supple without JVD or thyromegaly. LUNGS: Breath sounds crackles in bilateral bases to auscultation bilaterally. Respiration equal and unlabored. HEART: Regular rate and rhythm without murmurs, rubs or gallops. S1 and S2 heard. EXTREMITIES: Normal range of motion, no edema. No clubbing or cyanosis. Peripheral pulses intact. ASSESSMENT Acute on chronic heart failure with reduced ejection fraction Hyponatremia Coronary artery disease with previous CABG x 4 in 2001 and PCI 01/12 and 03/15 Ischemic cardiomyopathy History of AICD implantation Hypertension Hyperlipidemia Type 3 diabetes on insulin pump PLAN Continue IV Lasix 40 mg twice a day Monitor intake and outputs, renal function and electrolytes Continue aspirin, Plavix, statin, Imdur, midodrine Nephrology following Further recommendations based on clinical course Nurse Practitioner note has been reviewed, I agree with a documented findings and plan of care. Patient was seen and examined. Objective - Vital Signs Vital signs: Vital Signs Temp 97.7 F 05/29/22 08:00 Pulse 77 05/29/22 08:00 Resp 20 05/29/22 08:00 BP 114/74 05/29/22 08:00 Pulse Ox 99 05/29/22 04:00 FiO2 Intake & Output 05/28/22 05/29/22 05/29/22 18:59 06:59 18:59 Intake Total 120 Output Total 1800 Balance -1800 120 Weight 71.5 kg Intake: Oral 120 Output: Urine 1800 Other: Voiding Method Toilet Toilet Toilet # Voids 1 - Labs CBC & Chem 7: 05/27/22 02:05 05/29/22 10:35 Labs: Abnormal Lab Results - Last 24 Hours (Table) 05/28/22 05/28/22 05/28/22 Range/Units 15:33 16:34 17:49 Sodium 126 L (137-145) mmol/L Chloride (98-107) mmol/L Carbon Dioxide (22-30) mmol/L POC Glucose (mg/dL) 235 H (70-110) mg/dL AST (14-36) U/L Urine Appearance Cloudy H (Clear) Urine Protein 2+ H (Negative) Ur Leukocyte Esterase Large H (Negative) Urine WBC 37 H (0-5) /hpf Urine WBC Clumps Few H (None) /hpf Urine Bacteria Rare H (None) /hpf Hyaline Casts 72 H (0-2) /lpf Urine Mucus Rare H (None) /hpf 05/28/22 05/29/22 05/29/22 Range/Units 19:42 05:51 10:35 Sodium 132 L (137-145) mmol/L Chloride 94 L (98-107) mmol/L Carbon Dioxide 32 H (22-30) mmol/L POC Glucose (mg/dL) 202 H 211 H (70-110) mg/dL AST 46 H (14-36) U/L Urine Appearance (Clear) Urine Protein (Negative) Ur Leukocyte Esterase (Negative) Urine WBC (0-5) /hpf Urine WBC Clumps (None) /hpf Urine Bacteria (None) /hpf Hyaline Casts (0-2) /lpf Urine Mucus (None) /hpf 12/05/22 Range/Units 11:49 Sodium (137-145) mmol/L Chloride (98-107) mmol/L Carbon Dioxide (22-30) mmol/L POC Glucose (mg/dL) 114 H (70-110) mg/dL AST (14-36) U/L Urine Appearance (Clear) Urine Protein (Negative) Ur Leukocyte Esterase (Negative) Urine WBC (0-5) /hpf Urine WBC Clumps (None) /hpf Urine Bacteria (None) /hpf Hyaline Casts (0-2) /lpf Urine Mucus (None) /hpf Microbiology - Last 24 Hours (Table) 05/28/22 17:49 Urine Culture - Preliminary Urine,Voided
[2022-05-29] MEDS: LORazepam 0.5 MG TAB PO SCH (13:07)
[2022-05-29 16:26] LABS: Glucose,Whole Blood 108 mg/dL (70-110)
--- NOTE | 2022-05-29 19:12 | P.PN ---
Subjective Patient is a 66-year-old lady with a known history of chronic CHF, history of AICD placement, coronary artery disease status post CABG and stent placement, diabetes type 2 on insulin pump, Maksim's disease, anxiety/depression prior history of smoking was brought to the hospital because of worsening shortness of breath. Patient has been complaining of shortness of breath on exertion and also complaining of swelling of feet. According to patient unable to walk more than 10 steps. Also complaining of orthopnea. Denies any PND. Rubina ent was worked in the ER, initial lab work showed patient to have a white count of 5.2, hemoglobin of 14.2, sodium 129, bicarb 30, BUN 23, creatinine 0.83. Chest x-ray showed pulmonary interstitial edema. Patient was started on IV Lasix and was admitted for further evaluation and treatment 05/28. Patient seen and examined. States swelling of legs is improved. States shortness of breath is also improving. 05/29/2022 Patient breathing is stable, she is on room air, she denies chest pain or d yspnea. No other new complaints. Sodium yesterday was 126, she received a one-time dose of samsca , sodium today better 132 Patient remains on IV Lasix Possible discharge in 24-48 hours was cleared by consultants and her condition improves Objective - Vital Signs Vital signs: Vital Signs Temp 97.7 F 05/29/22 08:00 Pulse 87 05/29/22 12:00 Resp 22 05/29/22 14:00 BP 100/66 05/29/22 12:00 Pulse Ox 99 05/29/22 04:00 FiO2 Intake & Output 05/28/22 05/29/22 05/29/22 18:59 06:59 18:59 Intake Total 120 Output Total 1800 Balance -1800 120 Weight 71.5 kg Intake: Oral 120 Output: Urine 1800 Other: Voiding Method Toilet Toilet Toilet # Voids 1 - Exam GENERAL: The patient is alert and oriented x3, not in any acute distress. Well developed, well nourished. HEENT: Pupils are round and equally reacting to light. EOMI. No scleral icterus. No conjunctival pallor. Normocephalic, atraumatic. No pharyngeal erythema. No thyromegaly. CARDIOVASCULAR: S1 and S2 present. No murmurs, rubs, or gallops. -PULMONARY: Chest is clear to auscultation, no wheezing .. Mild basal crepitation ABDOMEN: Soft, nontender, nondistended, normoactive bowel sounds. No palpable organomegaly. MUSCULOSKELETAL: No joint swelling or deformity. EXTREMITIES: No cyanosis, clubbing, or pedal edema. NEUROLOGICAL: Gross neurological examination did not reveal any focal deficits. SKIN: No rashes. no petechiae. - Labs CBC & Chem 7: 05/29/22 10:35 05/29/22 10:35 Labs: Abnormal Lab Results - Last 24 Hours (Table) 05/28/22 05/28/22 05/28/22 Range/Units 15:33 16:34 17:49 MCV (80.0-100.0) fL Lymphocytes # (1.0-4.8) k/uL Macrocytosis Sodium 126 L (137-145) mmol/L Chloride (98-107) mmol/L Carbon Dioxide (22-30) mmol/L POC Glucose (mg/dL) 235 H (70-110) mg/dL AST (14-36) U/L Urine Appearance Cloudy H (Clear) Urine Protein 2+ H (Negative) Ur Leukocyte Esterase Large H (Negative) Urine WBC 37 H (0-5) /hpf Urine WBC Clumps Few H (None) /hpf Urine Bacteria Rare H (None) /hpf Hyaline Casts 72 H (0-2) /lpf Urine Mucus Rare H (None) /hpf 05/28/22 05/29/22 05/29/22 Range/Units 19:42 05:51 10:35 MCV 108.2 H (80.0-100.0) fL Lymphocytes # 0.6 L (1.0-4.8) k/uL Macrocytosis Marked A Sodium (137-145) mmol/L Chloride (98-107) mmol/L Carbon Dioxide (22-30) mmol/L POC Glucose (mg/dL) 202 H 211 H (70-110) mg/dL AST (14-36) U/L Urine Appearance (Clear) Urine Protein (Negative) Ur Leukocyte Esterase (Negative) Urine WBC (0-5) /hpf Urine WBC Clumps (None) /hpf Urine Bacteria (None) /hpf Hyaline Casts (0-2) /lpf Urine Mucus (None) /hpf 05/29/22 05/29/22 Range/Units 10:35 11:49 MCV (80.0-100.0) fL Lymphocytes # (1.0-4.8) k/uL Macrocytosis Sodium 132 L (137-145) mmol/L Chloride 94 L (98-107) mmol/L Carbon Dioxide 32 H (22-30) mmol/L POC Glucose (mg/dL) 114 H (70-110) mg/dL AST 46 H (14-36) U/L Urine Appearance (Clear) Urine Protein (Negative) Ur Leukocyte Esterase (Negative) Urine WBC (0-5) /hpf Urine WBC Clumps (None) /hpf Urine Bacteria (None) /hpf Hyaline Casts (0-2) /lpf Urine Mucus (None) /hpf Microbiology - Last 24 Hours (Table) 05/28/22 17:49 Urine Culture - Preliminary Urine,Voided Assessment and Plan Assessment: Hyponatremia Acute on chronic systolic heart failure Coronary artery disease with PCI SVG to right PDA, December 2020 and additional stenting in February 2021, details unknown History of CABG x 2001 Ischemic cardiomyopathy, status post AICD Hypertension Hyperlipidemia Pulmonary fibrosis Diabetes mellitus Severe pulmonary hypertension Plan: Monitor vital signs Monitor CBC Strict I's and O's Daily weights Monitor renal functions Continue IV Lasix 40 mg twice a day Follow-up in nephrology recommendations Follow-up on cardiology recommendations Labs and medication were reviewed.. Continue same treatment. Continue with symptomatic treatment. Resume home medication. Monitor lytes and vitals. DVT and GI prophylaxis. Further recommendations as per clinical course of the patient DVT prophylaxis: Subcutaneous heparin GI Prophylaxis: ppi PT/OT: Home health care Prognosis is guarded
[2022-05-29 19:52] VITALS: RESP 16
[2022-05-29 20:04] LABS: Glucose,Whole Blood 196 mg/dL (70-110)
[2022-05-29] MEDS: PANTOPRAZOLE 40 MG TABLET PO SCH (20:16)
[2022-05-29] MEDS: CLOPIDOGREL 75 MG TAB PO SCH (20:16)
[2022-05-29] MEDS: TEMAZEPAM 7.5 MG CAP PO SCH (20:16)
[2022-05-29] MEDS: ATORVASTATIN 40 MG TAB PO SCH (20:16)
[2022-05-30] MEDS: Insulin Aspart (For Pump) 100 UNIT/ML VIAL SQ-PUMP SCH (00:37)
[2022-05-30 06:14] LABS: Glucose,Whole Blood 149 mg/dL (70-110)
[2022-05-30] MEDS: FUROSEMIDE 10 MG/ML 4 ML VIAL IV SCH (06:17)
[2022-05-30] MEDS: LEVOTHYROXINE 100 MCG TAB PO SCH (06:17)
[2022-05-30] MEDS ORDERED: BUMETANIDE 1 MG TAB PO SCH (09:00)
[2022-05-30 09:21] LABS: African American GFR (CKD) >90 (>60 ml/min/1.73 sqM); Anion Gap 6 mmol/L; Blood Urea Nitrogen 18 mg/dL (7-17); Calcium 8.4 mg/dL (8.4-10.2); Carbon Dioxide 31 mmol/L (22-30); Chloride 93 mmol/L (98-107); Glucose 187 mg/dL (74-99); Magnesium 1.7 mg/dL (1.6-2.3); Non-African American GFR(CKD) 80 (>60 ml/min/1.73 sqM); Potassium 4.1 mmol/L (3.5-5.1); Sodium 130 mmol/L (137-145)
[2022-05-30] MEDS: MIDODRINE 5 MG TAB PO SCH (09:35)
[2022-05-30] MEDS: MONTELUKAST 10 MG TAB PO SCH (09:35)
[2022-05-30] MEDS: ISOSORBIDE MONONITRATE ER 30 MG TAB.ER.24H PO SCH (09:35)
[2022-05-30] MEDS: busPIRone HCl 10 MG TAB PO SCH (09:35)
[2022-05-30] MEDS: CYCLOBENZAPRINE 10 MG TAB PO SCH (09:35)
[2022-05-30] MEDS: ASPIRIN 81 MG PO SCH (09:35)
[2022-05-30] MEDS: POTASSIUM CHLORIDE ER 20 MEQ TAB.ER PO SCH (09:35)
[2022-05-30] MEDS: NON FORMULARY DRUG (Ubidecarenone [Coenzyme Q10] 200 MG Capsule) PO SCH (09:36)
[2022-05-30] MEDS: HEPARIN SODIUM,PORCINE/PF 5,000 UNIT/0.5 ML SYRINGE SQ SCH ×2 (09:39→17:34)
[2022-05-30] MEDS ORDERED: TOLVAPTAN 15 MG 1/2 TABLET PO ONE (10:56)
--- NOTE | 2022-05-30 10:59 | P.PN ---
Subjective Patient is seen in follow-up for hyponatremia. Sodium level 130 today. Now on oral Bumex. Denies chest pain or shortness of breath. Vital signs are stable. General: Awake. No acute distress. HEENT: Head exam is unremarkable. LUNGS: Breath sounds decreased. HEART: Rate and Rhythm are regular. ABDOMEN: Soft, no distention. EXTREMITITES: No edema. Objective - Vital Signs Vital signs: Vital Signs Temp 97.3 F L 05/30/22 04:00 Pulse 79 05/30/22 04:00 Resp 16 05/30/22 04:00 BP 140/83 05/30/22 04:00 Pulse Ox 97 05/30/22 04:00 FiO2 Intake & Output 05/29/22 05/30/22 05/30/22 18:59 06:59 18:59 Intake Total 240 118 Output Total 400 200 800 Balance -160 -200 -682 Weight 71.4 kg Intake: Oral 240 118 Output: Urine 400 200 800 Other: Voiding Method Toilet Toilet - Labs CBC & Chem 7: 05/29/22 10:35 05/30/22 08:43 Labs: Abnormal Lab Results - Last 24 Hours (Table) 05/29/22 05/29/22 05/29/22 Range/Units 10:35 10:35 11:49 MCV 108.2 H (80.0-100.0) fL Lymphocytes # 0.6 L (1.0-4.8) k/uL Macrocytosis Marked A Sodium 132 L (137-145) mmol/L Chloride 94 L (98-107) mmol/L Carbon Dioxide 32 H (22-30) mmol/L BUN (7-17) mg/dL Glucose (74-99) mg/dL POC Glucose (mg/dL) 114 H (70-110) mg/dL AST 46 H (14-36) U/L 05/29/22 05/30/22 05/30/22 Range/Units 20:01 06:12 08:43 MCV (80.0-100.0) fL Lymphocytes # (1.0-4.8) k/uL Macrocytosis Sodium 130 L (137-145) mmol/L Chloride 93 L (98-107) mmol/L Carbon Dioxide 31 H (22-30) mmol/L BUN 18 H (7-17) mg/dL Glucose 187 H (74-99) mg/dL POC Glucose (mg/dL) 196 H 149 H (70-110) mg/dL AST (14-36) U/L Microbiology - Last 24 Hours (Table) 05/28/22 17:49 Urine Culture - Final Urine,Voided Assessment and Plan Plan: Assessment: 1. Hypervolemic hyponatremia. Sodium level 130 this morning. 2. Volume overload. Improved with diuresis. 3. Acute on chronic systolic CHF with ejection fraction of 25-30% with severe tricuspid regurgitation and pulmonary hypertension. 4. Diabetes mellitus. 5. Ischemic cardiomyopathy status post AICD. 6. Coronary artery disease. 7. Chronic kidney disease stage II with GFR currently at baseline. Etiology is diabetic kidney disease and cardiorenal syndrome. Plan: Maintain Bumex. Repeat Samsca today. Strongly advised patient to maintain low-sodium diet and 40 ounce of fluid restriction per day upon discharge. She is also advised to monitor her weight closely at home and to notify physician if notices worsening edema or weight gain of more than 4-5 pounds in 1 week duration. Patient may benefit from Samsca outpatient. Will consider starting outpatient depending on her sodium level. Follow up outpatient in 1 week post discharge.
[2022-05-30 11:02] VITALS: TEMP 98
--- NOTE | 2022-05-30 11:58 | P.PN ---
Subjective This is a 66-year-old female with a past medical history of coronary artery disease with previous CABG x 4 in 2001 and PCI 01/12 and 03/15, ischemic c ardiomyopathy, AICD implantation, hypertension, hyperlipidemia, ischemic cardiomyopathy and diabetes on insulin pump. Patient follows with Dr. Ambriz. We have been asked to see in consultation for congestive heart failure. Patient presents emergency department with worsening shortness of breath and lower extremity edema. Patient was started on IV Lasix. She recently underwent cardiac catheterization on 05/06/2022 concerning for possible NSTEMI, [place] CAD as described above with 50-60% left main stenosis, 100% proximal circumflex, 100% mid LAD, 100% proximal RCA stenosis, Occluded SVG to diagonal, 50-60% stenosis of SVG to PDA and patent ANTUNEZ to LAD. Per Cath report Patient with likely SVG to diagonal as culprit. Given no ongoing angina symptoms with 100% occlusion at site of previous stenting with additional TAYLOR would recommend medical therapy. SVG to PDA appears to have 50- 60% proximal stenosis however higher risk of no reflow with older graft and would treat medically. Echocardiogram revealed EF of 2530 percent, severe pulmonary hypertension, severe tricuspid regurgitation, RVSP of 95 mmHg. 05/30/2022 Patient seen and examined at bedside, no acute distress. Denies shortness of breath, lower extremity edema has improved. Sodium improved to 132. Continues to be on IV Lasix. 1.8 L urine output in the past 24 hours. GENERAL: In no acute distress. NECK: Supple without JVD or thyromegaly. LUNGS: Breath sounds clear to auscultation bilaterally. Respiration equal and unlabored. HEART: Regular rate and rhythm without murmurs, rubs or gallops. S1 and S2 hea rd. EXTREMITIES: Normal range of motion, 1+ bilateral LE edema. No clubbing or cyanosis. Peripheral pulses intact. ASSESSMENT Acute on chronic heart failure with reduced ejection fraction Hyponatremia Coronary artery disease with previous CABG x 4 in 2001 and PCI 01/12 and 03/15 Ischemic cardiomyopathy History of AICD implantation Hypertension Hyperlipidemia Type 3 diabetes on insulin pump PLAN Ok to transition to PO Bumex Nephrology following, appreciate diuretic recommendations Monitor intake and outputs, renal function and electrolytes while inpatient Continue aspirin, Plavix, statin, Imdur, midodrine Okay to discharge from cardiology perspective when cleared by primary and other consultants. Follow up outpatient with her primary roll grinder Dr. Ambriz Nurse Practitioner note has been reviewed, I agree with a documented findings and plan of care. Patient was seen and examined. Objective - Vital Signs Vital signs: Vital Signs Temp 98.0 F 05/30/22 08:00 Pulse 89 05/30/22 08:00 Resp 16 05/30/22 08:00 BP 108/70 05/30/22 08:00 Pulse Ox 91 L 05/30/22 08:00 FiO2 Intake & Output 05/29/22 05/30/22 05/30/22 18:59 06:59 18:59 Intake Total 240 118 Output Total 400 200 800 Balance -160 200 -682 Weight 71.4 kg Intake: Oral 240 118 Output: Urine 400 200 800 Other: Voiding Method Toilet Toilet Toilet - Labs CBC & Chem 7: 05/29/22 10:35 05/30/22 08:43 Labs: Abnormal Lab Results - Last 24 Hours (Table) 05/29/22 05/29/22 05/29/22 Range/Units 10:35 11:49 20:01 MCV 108.2 H (80.0-100.0) fL Lymphocytes # 0.6 L (1.0-4.8) k/uL Macrocytosis Marked A Sodium (137-145) mmol/L Chloride (98-107) mmol/L Carbon Dioxide (22-30) mmol/L BUN (7-17) mg/dL Glucose (74-99) mg/dL POC Glucose (mg/dL) 114 H 196 H (70-110) mg/dL 05/30/22 05/30/22 Range/Units 06:12 08:43 MCV (80.0-100.0) fL Lymphocytes # (1.0-4.8) k/uL Macrocytosis Sodium 130 L (137-145) mmol/L Chloride 93 L (98-107) mmol/L Carbon Dioxide 31 H (22-30) mmol/L BUN 18 H (7-17) mg/dL Glucose 187 H (74-99) mg/dL POC Glucose (mg/dL) 149 H (70-110) mg/dL Microbiology - Last 24 Hours (Table) 05/28/22 17:49 Urine Culture - Final Urine,Voided
[2022-05-30 12:10] LABS: Glucose,Whole Blood 195 mg/dL (70-110)
[2022-05-30] MEDS: LORazepam 0.5 MG TAB PO SCH (12:53)
[2022-05-30 15:37] VITALS: BP 114/73
[2022-05-30 17:06] LABS: Glucose,Whole Blood 186 mg/dL (70-110)
[2022-05-30 17:36] VITALS: PULSE 80
--- NOTE | 2022-05-30 19:59 | P.DS ---
Providers Date of admission: 05/26/22 20:00 Attending physician: Ronak Caballero Consults: 05/26/22 20:00 Consult Physician Routine Consulting Provider: [facility] Consult Reason/Comments: chf exacerbation Do you want consulting provider notified?: Yes, Notify in am 05/27/22 15:51 Consult Physician Routine Consulting Provider: Darby Orona Reason/Comments: CHF exacerbation, hyponatremia, known patient to provider Do you want consulting provider notified?: Yes Primary care physician: Shamika Martins Hospital Course: Diagnoses: Hyponatremia Acute on chronic systolic heart failure Coronary artery disease with PCI SVG to right PDA, December 2020 and additional stenting in February 2021, details unknown History of CABG x 2001 Ischemic cardiomyopathy, status post AICD Hypertension Hyperlipidemia Pulmonary fibrosis Diabetes mellitus Severe pulmonary hypertension Hospital course: Patient is a 66-year-old lady with a known history of chronic CHF, history of AICD placement, coronary artery disease status post CABG and stent placement, diabetes type 2 on insulin pump, Maksim's disease, anxiety/depression prior history of smoking was brought to the hospital because of worsening shortness of breath. Patient was found to have acute CHF with ejection fraction is low side, patient was evaluated by seasonal package handler and treated with IV Lasix. Patient showed interval improvement and on the day of discharge she denies dyspnea or chest pain, she is on room air. Patient evaluated by seasonal package handler and cleared for discharge and to continue off her cardiac medication like aspirin, Plavix, statin and metoprolol. Patient was instructed to follow up with her seasonal package handler Dr. Troncoso 1-2 weeks and she agrees, appointment Patient also with hypernatremia received 2 doses of samca, her sodium improved 126, up to 132 yesterday and 1:30 today . I discussed the case with nephrology team and their input is appreciated. Patient cleared by log stacker operator team for discharge and recommendation to discharge the patient on samsca 15 mg po daily x 7 days prescription is provided for the patient and plan discussed with her and she is in agreement. Also she was instructed to follow up with her log stacker operator Dr. Orona/Dr. Keller in one week And she agrees to call and make appointment. Patient was cleared for discharge by both cardiology and nephrology team. Problems and management plan were discussed with the patient and he verbalized understanding and acceptance Patient was found stable and [facility] he needs follow-up as an outpatient. Patient was instructed to follow up with PCP Dr. Rivera within one week and patient agrees Physical exam Gen: patient is a AAOx3, no distress CVS: S1-S2, RRR, no murmur Lungs: B/L CTA, no wheezing Abdomen: soft, no distention, no tenderness, positive bowel sounds Extremity: no leg edema or induration Time spent more than 35 minutes Patient Condition at Discharge: Stable Plan - Discharge Summary Discharge Rx Participant: No New Discharge Prescriptions: New Tolvaptan [Samsca] 15 mg PO DAILY 7 Days #7 tab Bumetanide [BUMEX] 2 mg PO BID #120 tab Continue Omeprazole [PriLOSEC] 40 mg PO HS Montelukast [Singulair] 10 mg PO DAILY Cholecalciferol [Vitamin D3 (25 Mcg = 1000 Iu)] 50 mcg PO DAILY Levothyroxine Sodium [Synthroid] 100 mcg PO MOTUWETHFRSA Rosuvastatin [Crestor] 20 mg PO HS LORazepam [Ativan] 0.5 mg PO DAILY@1200 Midodrine [ProAmatine] 5 mg PO TID Temazepam 7.5 mg PO HS Nitroglycerin Sl Tabs [Nitrostat] 0.4 mg SL Q5M PRN PRN Reason: Chest Pain Aspirin EC [Ecotrin Low Dose] 81 mg PO DAILY Multivit with Calcium,Iron,Min [Women's Multivitamin] 1 tab PO DAILY Insulin Aspart (For Pump) [NovoLOG (For Pump)] 0.01 unit SQ-PUMP CONTINUOUS Metoclopramide HCl [Reglan] 5 mg PO TID PRN PRN Reason: Nausea Cyclobenzaprine [Flexeril] 10 mg PO BID Ubidecarenone [Coenzyme Q10] 200 mg PO DAILY busPIRone HCl [Buspar] 10 mg PO BID #0 Isosorbide Mononitrate ER [Imdur] 30 mg PO DAILY Clopidogrel [Plavix] 75 mg PO HS Potassium Chloride [Potassium Chloride ER] 20 meq PO DAILY Discontinued Bumetanide [BUMEX] 4 mg PO BID@0900,1400 Discharge Medication List Omeprazole [PriLOSEC] 40 mg PO HS 02/02/14 [History] Aspirin EC [Ecotrin Low Dose] 81 mg PO DAILY 11/12/20 [History] Cholecalciferol [Vitamin D3 (25 Mcg = 1000 Iu)] 50 mcg PO DAILY 11/12/20 [History] Insulin Aspart (For Pump) [NovoLOG (For Pump)] 0.01 unit SQ-PUMP CONTINUOUS 11/12/20 [History] Levothyroxine Sodium [Synthroid] 100 mcg PO MOTUWETHFRSA 11/12/20 [History] Montelukast [Singulair] 10 mg PO DAILY 11/12/20 [History] Multivit with Calcium,Iron,Min [Women's Multivitamin] 1 tab PO DAILY 11/12/20 [History] Cyclobenzaprine [Flexeril] 10 mg PO BID 01/13/21 [History] Metoclopramide HCl [Reglan] 5 mg PO TID PRN 01/13/21 [History] Rosuvastatin [Crestor] 20 mg PO HS 10/03/21 [History] LORazepam [Ativan] 0.5 mg PO DAILY@1200 04/28/22 [History] Midodrine [ProAmatine] 5 mg PO TID 04/28/22 [History] Ubidecarenone [Coenzyme Q10] 200 mg PO DAILY 04/28/22 [History] busPIRone HCl [Buspar] 10 mg PO BID #0 05/08/22 [Rx] Clopidogrel [Plavix] 75 mg PO HS 05/15/22 [History] Isosorbide Mononitrate ER [Imdur] 30 mg PO DAILY 05/15/22 [History] Temazepam 7.5 mg PO HS 05/15/22 [History] Nitroglycerin Sl Tabs [Nitrostat] 0.4 mg SL Q5M PRN 05/26/22 [History] Potassium Chloride [Potassium Chloride ER] 20 meq PO DAILY 05/26/22 [History] Bumetanide [BUMEX] 2 mg PO BID #120 tab 05/30/22 [Rx] Tolvaptan [Samsca] 15 mg PO DAILY 7 Days #7 tab 05/30/22 [Rx] Follow up Appointment(s)/Referral(s): Shamika Martins MD [Primary Care Provider] - 1-2 days Kristie Ambriz MD [REFERRING] - 1 Week Bruno Keller DO [STAFF PHYSICIAN] - 1 Week (log stacker operator) Ambulatory/Diagnostic Orders: Basic Metabolic Panel [LAB.AMB] Time Frame: 3 Days, Location: None Selected Magnesium [LAB.AMB] Location: None Selected Patient Instructions/Handouts: Heart Failure (DC), Hyponatremia (DC) Activity/Diet/Wound Care/Special Instructions: heart healthy diet activity is restricted till you see your doctor we recommend to check your blood test with your doctor in 2-3 days, including your basic metabolic panel (BMP) & magnesium level Discharge Disposition: HOME SELF-CARE
--- NOTE | 2022-06-02 18:11 | CDI ---
Documentation Clarification Form Date: 06/02/2022 05:59:48 PM From: Lucy Johnson Phone: Admit Date: 05/26/2022 08:00:00 PM Patient Name: Kymberly Potts Visit Number: [id number] Discharge Date: 05/30/2022 07:00:00 PM ATTENTION: The Clinical Documentation Specialists (CDI) and [facility] Coding Staff appreciate your assistance in clarifying documentation. Please respond to the clarification below the line at the bottom and electronically sign. The CDI & [facility] Coding staff will review the response and follow-up if needed. Please note: Queries are made part of the Legal Health Record. If you have any questions, please contact the author of this message via ITS. Dr. Quach E Sheet Your patient has the documented diagnosis of unspecified CHF. Additional information regarding the type and acuity of CHF is requested. Hx of chronic diastolic CHF per Dr. Darby Orona Consult 05/28/22 Acute on chronic systolic heart failure H&P History/Risk Factors: 66yo F, Hyponatremia, CHF, CAD sp stent/CABG, ICM, HTN, HLD, IDDMII w pump, CKD II, pHTN, AICD, Pulmonary fibrosis Clinical Indicators: VS/Pulse OX: 995 BNP: 7200 Echocardiogram Results: Echocardiogram revealed EF of 2530 percent, severe pulmonary hypertension, severe tricuspid regurgitation, RVSP of 95 mmHg. Chest x ray: Moderate cardiomegaly. Pulmonary interstitial edema which is the same or slightly worse than last exam and could be congestive heart failure. Treatment: I will treat the patient with intravenous diuretics and adjust the medications based on the response. In your professional opinion, can you please clarify the type and acuity of CHF if known? [ ] Acute on Chronic Systolic Heart Failure (reduced EF) [ ] Acute on Chronic Heart Failure Systolic & Diastolic Heart Failure [ ] Other, please specify [ ] Unable to determine (Template Last Revised: July 2020) Acute on Chronic Systolic Heart Failure with reduced ejection fraction MTDD
== END 2022-05-30 19:00 | disposition home or self-care (01) | DRG 291 ==
LOC: EC 16:35 → 3SCARD 20:00
PROVIDERS: ADMIT Hospitalist; ATTEND Hospitalist
DX: I13.0 Hypertensive heart and chronic kidney disease with heart failure and stage 1 through stage 4 chronic kidney disease, or unspecified chronic kidney disease (principal); I50.23 Acute on chronic systolic (congestive) heart failure; E87.0 Hyperosmolality and hypernatremia; E87.1 Hypo-osmolality and hyponatremia; I45.2 Bifascicular block; I27.20 Pulmonary hypertension, unspecified; E11.22 Type 2 diabetes mellitus with diabetic chronic kidney disease; I07.1 Rheumatic tricuspid insufficiency; F32.A Depression, unspecified; J84.10 Pulmonary fibrosis, unspecified; Z95.1 Presence of aortocoronary bypass graft; I25.10 Atherosclerotic heart disease of native coronary artery without angina pectoris; N18.2 Chronic kidney disease, stage 2 (mild); I73.00 Raynaud's syndrome without gangrene; R09.02 Hypoxemia; I25.5 Ischemic cardiomyopathy; E78.5 Hyperlipidemia, unspecified; F41.9 Anxiety disorder, unspecified; R77.8 Other specified abnormalities of plasma proteins; M79.89 Other specified soft tissue disorders; Z96.41 Presence of insulin pump (external) (internal); Z79.4 Long term (current) use of insulin; Z79.899 Other long term (current) drug therapy; Z79.890 Hormone replacement therapy; Z79.82 Long term (current) use of aspirin; Z79.02 Long term (current) use of antithrombotics/antiplatelets; Z91.048 Other nonmedicinal substance allergy status; Z91.040 Latex allergy status; Z88.0 Allergy status to penicillin; Z88.1 Allergy status to other antibiotic agents; Z88.5 Allergy status to narcotic agent; I25.2 Old myocardial infarction; Z95.810 Presence of automatic (implantable) cardiac defibrillator; Z95.5 Presence of coronary angioplasty implant and graft; Z87.891 Personal history of nicotine dependence; Z87.01 Personal history of pneumonia (recurrent)
CPT/HCPCS: 36415; 71046; 80048; 80053; 81001; 83735; 83880; 84295; 84484; 85025; 85610; 85730; 87086; 93005; 96372; 96374; 96375; 99285

== ENCOUNTER → 2022-06-28 | Outpatient (CLI) | payer MEDICARE ==
[2022-06-28 16:04] LABS: HCT 42.8 % (37.2-46.3); HGB 13.8 g/dL (12.0-15.0); MCH 34.3 pg (27.0-32.0); MCHC 32.2 g/dL (32.0-37.0); MCV 106.5 fL (80.0-97.0); Mean Platelet Volume 10.4 fL (9.5-12.2); NRBC Per 100 WBC 0 /100 WBCS (0.0-0.0); Platelet Count 140 X 10*3/uL (140-440); RBC 4.02 X 10*6/uL (4.10-5.20); RDW 14.9 % (11.5-14.5); WBC 6.09 X 10*3/uL (4.50-10.00)
[2022-06-28 16:35] LABS: Chol/HDL Ratio 2.31 Ratio; LDL Cholesterol,Calculated 55.1 mg/dL (0.0-131.0); Magnesium 1.9 mg/dL (1.5-2.4); VLDL Calculation 11.26 mg/dL (5.00-40.00)
[2022-06-28 16:50] LABS: Basophils # (A) 0.03 X 10*3/uL (0.00-0.10); Basophils % (A) 0.5 %; Eosinophils # (A) 0.05 X 10*3/uL (0.04-0.35); Eosinophils % (A) 0.8 %; Immature Grans, Automated 0.5 %; Lymphocytes # (A) 0.67 X 10*3/uL (0.90-5.00); Monocytes # (A) 0.61 X 10*3/uL (0.20-1.00); Neutrophils % (A) 77.2 %; RBC Morphology NORMAL
[2022-06-28 17:22] LABS: INR 1.04 (0.90-1.11); Prothrombin Time 11.7 sec (9.9-11.9)
[2022-06-28 18:33] LABS: ALT 30 U/L (8-44); AST 41 U/L (13-35); African American GFR (CKD) 69.3 (60.0-200.0); Alkaline Phosphatase 110 U/L (41-126); BUN/Creat Ratio 18.38 Ratio (12.00-20.00); Bilirubin, Conjugated 0.41 mg/dL (0.20-0.40); Bilirubin,Unconjugated 0.51 mg/dL (0.20-1.00); Blood Urea Nitrogen 18.2 mg/dL (9.0-27.0); Calcium 8.9 mg/dL (8.7-10.3); Carbon Dioxide 29.5 mmol/L (20.0-27.5); Chloride 91 mmol/L (96-109); Globulin 2.9 g/dL (1.6-3.3); Glucose 146 mg/dL (70-110); Non-African American GFR(CKD) 59.8 (60.0-200.0); Potassium 3.6 mmol/L (3.5-5.5); Sodium 133 mmol/L (135-145); Total Protein 6.9 g/dL (6.2-8.2)
== END | disposition home or self-care (01) ==
LOC: LABWHC1 09:47
PROVIDERS: ATTEND Internal Medicine Endocrinology, Diabetes & Metabolism
DX: I50.9 Heart failure, unspecified (principal); E10.65 Type 1 diabetes mellitus with hyperglycemia; E87.1 Hypo-osmolality and hyponatremia
CPT/HCPCS: 36415; 80053; 80061; 82043; 82248; 82570; 83036; 83735; 84443; 85025; 85610